=== PATIENT | male | born 1940 | race Caucasian/White ===

== ENCOUNTER 2018-10-19 11:28 | Inpatient (IN) | payer MEDICARE, BC ==
[2018-10-19] VITALS (9 sets, daily range): BP systolic 111–176; BP diastolic 53–85
[~2018-10-19] VITALS: Ht 165.1 cm; Wt 119.3 kg
[~2018-10-19 11:28] MED LIST: CRESTOR40 MG PO; DOXA2TAB2 PO; DOXY100C2 PO; GLIP5TAB10 PO; LISI-334 PO; MELO15TA23 PO; SILD100T PO
[2018-10-19] MEDS ORDERED: IPRATRPIUM/ALBUTEROL 0.5/2.5MG 3 ML NEBU. NEB ONE (11:45)
[2018-10-19] MEDS ORDERED: INSU100I32 SQ (11:54)
[2018-10-19] MEDS ORDERED: METO25TA4 PO ×2 (11:54→15:31)
[2018-10-19] MEDS ORDERED: ATOR40TA59 PO (11:54)
[2018-10-19] MEDS ORDERED: CHOL200059 PO (11:55)
[2018-10-19] MEDS ORDERED: ASPI325T8 PO (11:55)
[2018-10-19] MEDS ORDERED: AMLO5TAB10 PO (11:55)
[2018-10-19] MEDS ORDERED: OMEG-165 PO (11:56)
[2018-10-19] MEDS ORDERED: PATI8.4P PO (11:56)
[2018-10-19 11:58] LABS: BASO # 0.1 x10^3/uL (0.0-0.2); BASO % 1 % (0-3); EOS % 0 % (0-3); HEMATOCRIT 37.4 % (39.0-53.0); HEMOGLOBIN 12.2 g/dL (13.0-17.5); LYMPH # 1.1 x10^3/uL (1.0-4.8); LYMPH % 10 % (24-48); MEAN CORPUSCULAR HEMOGLOBIN 29 pg (25-35); MEAN CORPUSCULAR HGB CONC 33 g/dL (31-37); MEAN CORPUSCULAR VOLUME 88 fL (79-100); MONO # 0.8 x10^3/uL (0.0-1.1); MONO % 7 % (0-9); NEUT % 82 % (31-73); PLATELET COUNT 310 x10^3/uL (140-400); RED BLOOD COUNT 4.25 x10^6/uL (4.30-5.70); RED CELL DISTRIBUTION WIDTH 13.8 % (11.5-14.5)
[2018-10-19 12:03] LABS: CALCIUM 8.9 mg/dL (8.5-10.1); CREATININE 2.8 mg/dL (0.7-1.3); POTASSIUM 4.3 mmol/L (3.5-5.1)
[2018-10-19 12:06] LABS: BASE EXCESS ABG -3 mmol/L (-3-3); HCO3 ABG 24 mmol/L (21-28); PCO2 ABG 45 mmHg (35-46); PO2 ABG 58 mmHg (65-108); SAT O2 ABG 88 % (92-99)
[2018-10-19 12:09] LABS: ALBUMIN 2.7 g/dL (3.4-5.0); ALBUMIN/GLOBULIN RATIO 0.6 (1.0-1.7); TOTAL BILIRUBIN 0.4 mg/dL (0.2-1.0); TOTAL PROTEIN 7.2 g/dL (6.4-8.2)
[2018-10-19 12:14] LABS: INFLUENZA A PATIENT NEGATIVE (NEGATIVE); INFLUENZA B PATIENT NEGATIVE (NEGATIVE)
[2018-10-19 12:14] LABS: FIO2 ABG 50
--- NOTE | 2018-10-19 12:18 | PHYS DOC ---
Past Medical History Past Medical History: Diabetes-Type II, High Cholesterol, Hypertension Past Surgical History: Cholecystectomy, Tonsillectomy Additional Past Surgical Histo: CARDIAC STENT, EYE SX, BONE SPUR L SHOULDER Alcohol Use: None Drug Use: None Adult General Chief Complaint Chief Complaint: SHORTNESS OF BREATH HPI HPI Patient is a 78-year-old male who presents from Dr. Dwyer's office with report of oxygen saturation in the 60s. Patient states that he has been having some shortness of breath and dry cough for the last 3 days. He admits to some chest tightness but denies any actual chest pain. He denies any nausea, vomiting or diaphoresis. He indicates that shortness of breath is worsened with minimal exertion. Patient states that he does have swelling to his lower legs but no lo wer leg pain. Patient states symptoms have been progressively worsening since onset. He states that nothing is helping his symptoms. He denies being on home oxygen. Review of Systems Review of Systems Constitutional: Denies fever or chills [] Respiratory: Positive cough and shortness of breath [] Cardiovascular: No additional information not addressed in HPI [] GI: Denies abdominal pain, nausea, vomiting or diarrhea [] Integument: Denies rash or skin lesions [] Neurologic: Denies headache, focal weakness or sensory changes [] All other systems were reviewed and found to be within normal limits, except as documented in this note. Current Medications Current Medications Current Medications Medications (Trade) Dose Ordered Sig/Kolton Start Time Stop Time Status Last Admin Dose Admin Albuterol/ Ipratropium (Duoneb) 3 ml 1X ONCE 10/19/18 11:45 10/19/18 11:46 DC 10/19/18 12:00 3 ML Furosemide (Lasix) 60 mg 1X ONCE 10/19/18 13:00 10/19/18 13:01 DC 10/19/18 13:00 60 MG Heparin Sodium (Porcine) (Heparin Sodium) 3,000 unit PRN Q6HRS PRN 10/19/18 12:30 Heparin Sodium/ Dextrose 500 ml @ 0 mls/hr CONT PRN 10/19/18 12:30 10/19/18 12:30 20 MLS/HR Info (Anti-Coagulation Monitoring By Pharmacy) 1 each PRN DAILY PRN 10/19/18 12:30 Allergies Allergies Allergies Coded Allergies Type Severity Reaction Last Updated Verified No Known Drug Allergies 06/03/13 No Physical Exam Physical Exam Constitutional: Well developed, well nourished, no acute distress, non-toxic appearance. [] HENT: Normocephalic, atraumatic, bilateral external ears normal, oropharynx moist, no oral exudates, nose normal. [] Eyes: PERRLA, EOMI, conjunctiva normal, no discharge. [] Neck: Normal range of motion, no tenderness, supple, no stridor. [] Cardiovascular: Regular rate and rhythm[] Lungs & Thorax: Bilateral breath sounds clear to auscultation [] Abdomen: Bowel sounds normal, soft, no tenderness. [] Skin: Warm, dry, no erythema, no rash. [] Extremities: No tenderness, no cyanosis, no clubbing, ROM intact, with lower extremity nonpitting edema. [] Neurologic: Alert and oriented X 3, no focal deficits noted. [] Current Patient Data Vital Signs Vital Signs Date Time Temp Pulse Resp B/P (MAP) Pulse Ox O2 Delivery O2 Flow Rate FiO2 10/19/18 13:06 88 143/65 (91) 94 Venturi Mask 15.0 10/19/18 11:34 98.6 22 98.6 Lab Values Laboratory Tests Test 10/19/18 11:40 10/19/18 11:55 White Blood Count 11.0 x10^3/uL (4.0-11.0) Red Blood Count 4.25 x10^6/uL (4.30-5.70) L Hemoglobin 12.2 g/dL (13.0-17.5) L Hematocrit 37.4 % (39.0-53.0) L Mean Corpuscular Volume 88 fL (79-100) Mean Corpuscular Hemoglobin 29 pg (25-35) Mean Corpuscular Hemoglobin Concent 33 g/dL (31-37) Red Cell Distribution Width 13.8 % (11.5-14.5) Platelet Count 310 x10^3/uL (140-400) Neutrophils (%) (Auto) 82 % (31-73) H Lymphocytes (%) (Auto) 10 % (24-48) L Monocytes (%) (Auto) 7 % (0-9) Eosinophils (%) (Auto) 0 % (0-3) Basophils (%) (Auto) 1 % (0-3) Neutrophils # (Auto) 9.0 x10^3uL (1.8-7.7) H Lymphocytes # (Auto) 1.1 x10^3/uL (1.0-4.8) Monocytes # (Auto) 0.8 x10^3/uL (0.0-1.1) Eosinophils # (Auto) 0.0 x10^3/uL (0.0-0.7) Basophils # (Auto) 0.1 x10^3/uL (0.0-0.2) D-Dimer (Rashmi) 0.83 ug/mlFEU (0.00-0.50) H Sodium Level 139 mmol/L (136-145) Potassium Level 4.3 mmol/L (3.5-5.1) Chloride Level 103 mmol/L (98-107) Carbon Dioxide Level 25 mmol/L (21-32) Anion Gap 11 (6-14) Blood Urea Nitrogen 55 mg/dL (8-26) H Creatinine 2.8 mg/dL (0.7-1.3) H Estimated GFR (Cockcroft-Gault) 22.0 BUN/Creatinine Ratio 20 (6-20) Glucose Level 179 mg/dL (70-99) H Calcium Level 8.9 mg/dL (8.5-10.1) Total Bilirubin 0.4 mg/dL (0.2-1.0) Aspartate Amino Transferase (AST) 20 U/L (15-37) Alanine Aminotransferase (ALT) 19 U/L (16-63) Alkaline Phosphatase 73 U/L (46-116) Troponin I Quantitative 0.739 ng/mL (0.000-0.055) IM-Aye-M-Type Natriuretic Peptide 55680 pg/mL (0-449) H Total Protein 7.2 g/dL (6.4-8.2) Albumin 2.7 g/dL (3.4-5.0) L Albumin/Globulin Ratio 0.6 (1.0-1.7) L Triglycerides Level 123 mg/dL (0-150) Cholesterol Level 177 mg/dL (0-200) LDL Cholesterol, Calculated 104 mg/dL (0-100) H VLDL Cholesterol, Calculated 25 mg/dL (0-40) Non-HDL Cholesterol Calculated 129 mg/dL (0-129) HDL Cholesterol 48 mg/dL (40-60) Cholesterol/HDL Ratio 3.7 Influenza Type A Antigen Negative (NEGATIVE) Influenza Type B Antigen Negative (NEGATIVE) O2 Saturation 88 % (92-99) L Arterial Blood pH 7.33 (7.35-7.45) L Arterial Blood pCO2 at Patient Temp 45 mmHg (35-46) Arterial Blood pO2 at Patient Temp 58 mmHg (65-108) L Arterial Blood HCO3 24 mmol/L (21-28) Arterial Blood Base Excess -3 mmol/L (-3-3) FiO2 50 Laboratory Tests 10/19/18 11:40 Laboratory Tests 10/19/18 11:40 EKG EKG [] Interpretation Time: EKG demonstrates normal sinus rhythm with rate of 93. There is left bundle branch block present. Radiology/Procedures Radiology/Procedures [] Impressions: PROCEDURE: CHEST PA & LATERAL CHEST PA LATERAL Clinical indications: Dyspnea. COMPARISON: June 01, 2005. Findings: There are moderate-sized bilateral pleural effusions and associated bibasilar lung infiltrates or pulmonary edema. No pneumothorax is seen. The heart size is mildly enlarged but stable. The mediastinum and pulmonary vasculature and both hieu are unremarkable. The osseous structures appear intact. Impression: Moderate-sized bilateral pleural effusions associated bibasilar lung infiltrates or pulmonary edema. Findings may reflect CHF or bilateral pneumonia/aspiration pneumonitis. The heart size is mildly enlarged. Electronically signed by: Homar Kaur MD (10/19/2018 12:56 PM) [id number] Course & Med Decision Making Course & Med Decision Making Pertinent Labs and Imaging studies reviewed. (See chart for details) [] Dragon Disclaimer Dragon Disclaimer This electronic medical record was generated, in whole or in part, using a voice recognition dictation system. Departure Departure Impression: Primary Impression: NSTEMI (non-ST elevated myocardial infarction) Additional Impressions: CHF (congestive heart failure) Acute on chronic renal insufficiency Hypoxemia Disposition: 09 ADMITTED INPATIENT Admitting Physician: Altaf Nunes Condition: IMPROVED Referrals: JONE BETTENCOURT MD (PCP) Problem Qualifiers Additional Impressions: CHF (congestive heart failure) Heart failure type: unspecified Heart failure chronicity: acute Qualified Codes: I50.9 - Heart failure, unspecified SEB STEINBERG Jr. DO October 19, 2018 12:18
[2018-10-19] MEDS: HEPARIN 25,000UTS/500ML PREMIX 500 ML IV PRN (12:30)
[2018-10-19] MEDS ORDERED: HEPARIN for IV BOLUS 10,000 UNIT/10 ML VIAL. IV PRN (12:30)
[2018-10-19] MEDS ORDERED: HEPARIN for IV BOLUS 10,000 UNIT/10 ML VIAL. IV ONE (12:30)
--- NOTE | 2018-10-19 12:52 | PDOC2 ---
CARDIAC CONSULT DATE OF CONSULT Date of Consult DATE: 10/19/18 TIME: 12:46 REASON FOR CONSULT Reason for Consult: NSTEMI REFERRING PHYSICIAN Referring Physician: Praveena SOURCE Source: Caregiver (spouse), Chart review, Patient HISTORY OF PRESENT ILLNESS HISTORY OF PRESENT ILLNESS This is a pleasant 78 yo male admitted for complains of shortness of breath. In the last 3 days he has been feeling more weak and kind of called but no fever. Negative for orthopnea or PND and no wheezing and no chest pain. He is positive for DEL ANGEL in the last 3 days and noted with hypoxia upon admission in ED. He has been having rumbling in his lower anterior ribcage same thing as when he had an ME in 2013. Positive for increased nocturia and has not been tested for DEE DEE. He has not gained much wt in the last 6 months. He does have renal insufficiency and being followed by Nephrology as an outpt. He has been complaint with his medications and his BG and BP has been controlled per his spouse. No jaw tightness, arm heaviness and no frequent dizziness. PAST MEDICAL HISTORY Cardiovascular: AFIB (post mi), CAD, HTN, ME, Hyperlipidemia GI: Diverticulosis ENT: Other (retinopathy) Renal/: Benign prostatic enlarg. Endocrine: Diabetes (2) PAST SURGICAL HISTORY Past Surgical History: Arthroscopy (left shoulder ), Cholecystectomy, Tonsill ectomy, Other (PCI multipel stents 2012; eye surgery) FAMILY HISTORY Family History noncontributory to CV SOCIAL HISTORY Smoke: Quit ALCOHOL: none Drugs: None Lives: with Family CURRENT MEDICATIONS CURRENT MEDICATIONS Current Medications Medications (Trade) Dose Ordered Sig/Kolton Route PRN Reason Start Time Stop Time Status Last Admin Dose Admin Albuterol/ Ipratropium (Duoneb) 3 ml 1X ONCE NEB 10/19/18 11:45 10/19/18 11:46 DC 10/19/18 12:00 Heparin Sodium (Porcine) (Heparin Sodium) 4,000 unit 1X ONCE IV 10/19/18 12:30 10/19/18 12:31 DC 10/19/18 12:29 Heparin Sodium/ Dextrose 500 ml @ 0 mls/hr CONT PRN IV SEE I/O RECORD 10/19/18 12:30 10/19/18 12:30 ALLERGIES ALLERGIES: Coded Allergies: No Known Drug Allergies (Unverified , 06/03/13) ROS Review of System 14 point ROS evaluated with pertinent positives noted per HPI PHYSICAL EXAM General: Alert, Oriented X3, Cooperative, No acute distress HEENT: Atraumatic, Mucous membr. moist/pink Lungs: Other (basilar crackles) Heart: Regular rate (SR LBBB), Normal S1, Normal S2, Other (S3 2/6 systolic murmur to LLS border) Abdomen: Soft, No tenderness, Other (obese) Extremities: No cyanosis, Other (2+ bilateral LE pitting edema) Skin: No breakdown, No significant lesion Neuro: Normal speech, Sensation intact Psych/Mental Status: Mental status NL, Mood NL MUSCULOSKELETAL: Osteoarthritic changes both hands VITALS VITALS Vital Signs Date Time Temp Pulse Resp B/P (MAP) Pulse Ox O2 Delivery O2 Flow Rate FiO2 10/19/18 12:35 89 133/62 (85) 93 Venturi Mask 15.0 10/19/18 11:34 98.6 22 98.6 LABS Lab: Laboratory Tests Test 10/19/18 11:40 10/19/18 11:55 White Blood Count 11.0 x10^3/uL (4.0-11.0) Red Blood Count 4.25 x10^6/uL (4.30-5.70) Hemoglobin 12.2 g/dL (13.0-17.5) Hematocrit 37.4 % (39.0-53.0) Mean Corpuscular Volume 88 fL (79-100) Mean Corpuscular Hemoglobin 29 pg (25-35) Mean Corpuscular Hemoglobin Concent 33 g/dL (31-37) Red Cell Distribution Width 13.8 % (11.5-14.5) Platelet Count 310 x10^3/uL (140-400) Neutrophils (%) (Auto) 82 % (31-73) Lymphocytes (%) (Auto) 10 % (24-48) Monocytes (%) (Auto) 7 % (0-9) Eosinophils (%) (Auto) 0 % (0-3) Basophils (%) (Auto) 1 % (0-3) Neutrophils # (Auto) 9.0 x10^3uL (1.8-7.7) Lymphocytes # (Auto) 1.1 x10^3/uL (1.0-4.8) Monocytes # (Auto) 0.8 x10^3/uL (0.0-1.1) Eosinophils # (Auto) 0.0 x10^3/uL (0.0-0.7) Basophils # (Auto) 0.1 x10^3/uL (0.0-0.2) D-Dimer (Rashmi) 0.83 ug/mlFEU (0.00-0.50) Sodium Level 139 mmol/L (136-145) Potassium Level 4.3 mmol/L (3.5-5.1) Chloride Level 103 mmol/L (98-107) Carbon Dioxide Level 25 mmol/L (21-32) Anion Gap 11 (6-14) Blood Urea Nitrogen 55 mg/dL (8-26) Creatinine 2.8 mg/dL (0.7-1.3) Estimated GFR (Cockcroft-Gault) 22.0 BUN/Creatinine Ratio 20 (6-20) Glucose Level 179 mg/dL (70-99) Calcium Level 8.9 mg/dL (8.5-10.1) Total Bilirubin 0.4 mg/dL (0.2-1.0) Aspartate Amino Transf (AST/SGOT) 20 U/L (15-37) Alanine Aminotransferase (ALT/SGPT) 19 U/L (16-63) Alkaline Phosphatase 73 U/L (46-116) Troponin I Quantitative 0.739 ng/mL (0.000-0.055) XX-Yfx-L-Type Natriuretic Peptide 72425 pg/mL (0-449) Total Protein 7.2 g/dL (6.4-8.2) Albumin 2.7 g/dL (3.4-5.0) Albumin/Globulin Ratio 0.6 (1.0-1.7) Influenza Type A Antigen Negative (NEGATIVE) Influenza Type B Antigen Negative (NEGATIVE) O2 Saturation 88 % (92-99) Arterial Blood pH 7.33 (7.35-7.45) Arterial Blood pCO2 at Patient Temp 45 mmHg (35-46) Arterial Blood pO2 at Patient Temp 58 mmHg (65-108) Arterial Blood HCO3 24 mmol/L (21-28) Arterial Blood Base Excess -3 mmol/L (-3-3) FiO2 50 ECHOCARDIOGRAM ECHOCARDIOGRAM <Conclusion> Left ventricular systolic function is normal. The left ventricular ejection fraction is 55%. There is normal LV segmental wall motion. The left atrium is mild to moderately dilated. The aortic valve is normal in structure and function. The mitral valve is normal in structure and function. Mitral regurgitation is not significant by color flow Doppler. There is trace tricuspid regurgitation. The pulmonic valve is not well visualized but appears to open normally. DATE: 06/04/13 1519 HEART CATH HEART CATH PCI Technique Lesion 2 Percutaneous Coronary Intervention was performed on the distal left anterior descending artery segment. BALLOON DILATION A Balloon catheter 2.5X12 TREK was inserted and inflated up to 10atm for 60seconds. Repeat angiography revealed the following post-dilatation results: 10% residual. We decided not to stent this segment given the very distal and tortuous course and excellent POBA result Final angiography reveals 10 % stenosis with ALVARO 3 flow. Recommendations Cardiac Rehabilitation ReferralDaily ASA with Plavix for at least one year Aggressive Medical TherapyCardiac Risk Reduction Program Weight Loss Reduction ProgramMedical Therapy DATE: 06/04/13 1033 Conclusion 3 vessel CAD Successful PCI of proximal CX with MICHELLE Successful PCI of distal CX and LPDA with MICHELLE Recommendations Daily ASA with Plavix for at least one year Aggressive Medical TherapyCardiac Risk Reduction Program Weight Loss Reduction ProgramMedical Therapy Plan staged PCI of LAD Medical therapy for non-dominant small RCA DATE: 06/03/13 1608 ASSESSMENT/PLAN ASSESSMENT/PLAN 1. NSTEMI: LBBB, Trop at 0.7 2. Acute CHF with likely diastolic/systolic dysfunction 3. CAD; PCI 3 stents in the past see above 4. HTN: controlled 5. HLP 6. DM2 7. VIN on CKD: possibly 3-4 Cr at 2.8 8. Morbid obesity Recommendations 1. TSH, TTE, lipids, trend troponin 2. Consult nephrology and will coordinate as pt will need LHC and I did discussed this with him and his spouse and the risk for dialysis 3. Heparin, ASA. 4. Lasix therapy. 5. Restart home norvasc. NTG paste. Statin. Hold ACEi. Will start lopressor tomorrow. KARINA NUNEZ APRN October 19, 2018 12:52
[2018-10-19 12:57] LABS: CHOLESTEROL/HDL RATIO 3.7
--- NOTE | 2018-10-19 12:59 | RAD ---
CHEST PA LATERAL Clinical indications: Dyspnea. COMPARISON: June 01, 2005. Findings: There are moderate-sized bilateral pleural effusions and associated bibasilar lung infiltrates or pulmonary edema. No pneumothorax is seen. The heart size is mildly enlarged but stable. The mediastinum and pulmonary vasculature and both hieu are unremarkable. The osseous structures appear intact. Impression: Moderate-sized bilateral pleural effusions associated bibasilar lung infiltrates or pulmonary edema. Findings may reflect CHF or bilateral pneumonia/aspiration pneumonitis. The heart size is mildly enlarged. Electronically signed by: Homar Kaur MD (10/19/2018 12:56 PM) [id number]
[2018-10-19] MEDS ORDERED: FUROSEMIDE 40 MG/4 ML VIAL. IVP ONE (13:00)
--- NOTE | 2018-10-19 13:14 | EKG ---
[facility] [address] [place] [address] Test Date: 2018-10-19 Test Time: 11:40:18 Pat Name: LEANA DODD Department: Room: Gender: M [employer] Operator: : 1940 Requested By: SEB STEINBERG Order Number: [id number] Reading MD: Abdias Estrada MD Measurements Intervals [place] Rate: 93 P: 37 CA: 140 QRS: 31 QRSD: 146 T: -163 QT: 388 QTc: 485 Interpretive Statements SINUS RHYTHM LBBB Electronically Signed On 10-23-2018 13:56:22 CDT by Abdias Estrada MD
[2018-10-19] MEDS ORDERED: ONDANSETRON PF 4 MG/2 ML VIAL. IV PRN ×2 (13:30→15:15)
[2018-10-19] MEDS ORDERED: NITROGLYCERIN SUBLINGUAL 0.4 MG BOTTLE OF 25. SL PRN (13:30)
[2018-10-19] MEDS ORDERED: amLODIPine BESYLATE 5 MG TABLET PO ONE (13:30)
[2018-10-19] MEDS ORDERED: MORPHINE SULFATE 2 MG/ML VIAL. IV PRN (13:30)
--- NOTE | 2018-10-19 14:09 | PDOC1 ---
History and Physical Date of Admission Date of Admission DATE: 10/19/18 TIME: 14:09 Identification/Chief Complaint Chief Complaint presented to ER from Dr. Dwyer's office with report of oxygen saturation in the 60s. Patient states that he has been having shortness of breath and dry cough for the last 3 days. He admits to some chest tightness but denies any actual chest pain. He denies any nausea, vomiting or diaphoresis. NOTES shortness of breath is worsened with minimal exertion. Patient states that he does have swelling to his lower legs but no lower leg pain. Patient states symptoms have been progressively worsening since onset. He states that nothing is helping his symptoms. He denies being on home oxygen. Past Medical History Past Medical History PAST MEDICAL HISTORY Cardiovascular: AFIB (post mi), CAD, HTN, [place], Hyperlipidemia GI: Diverticulosis ENT: Other (retinopathy) Renal/: Benign prostatic enlarg. Endocrine: Diabetes (2) PAST SURGICAL HISTORY Past Surgical History: Arthroscopy (left shoulder ), Cholecystectomy, Tonsillectomy, Other (PCI multiple stents 2012; eye surgery) FAMILY HISTORY Family History noncontributory to CV SOCIAL HISTORY Smoke: Quit 20 yrs ago ALCOHOL: none Drugs: None Lives: with Family Cardiovascular: AFIB (post mi), CAD, HTN, [place], Hyperlipidemia GI: Diverticulosis Musculoskeletal: low back pain ENT: Other (retinopathy) Renal/: Benign prostatic enlarg. Endocrine: Diabetes (2) Past Surgical History Past Surgical History: Arthroscopy (left shoulder ), Cholecystectomy, Tonsillectomy, Other (PCI multipel stents 2012; eye surgery) Family History Family History: Hypertension Social History Smoke: Quit ALCOHOL: none Drugs: None Current Problem List Problem List Problems Medical Problems: (1) Acute on chronic renal insufficiency Status: Acute (2) CHF (congestive heart failure) Status: Acute (3) Hypoxemia Status: Acute (4) NSTEMI (non-ST elevated myocardial infarction) Status: Acute Current Medications Current Medications Current Medications Albuterol/ Ipratropium (Duoneb) 3 ml 1X ONCE NEB Last administered on 10/19/18at 12:00; Start 10/19/18 at 11:45; Stop 10/19/18 at 11:46; Status DC Heparin Sodium (Porcine) (Heparin Sodium) 4,000 unit 1X ONCE IV Last administe red on 10/19/18at 12:29; Start 10/19/18 at 12:30; Stop 10/19/18 at 12:31; Status DC Heparin Sodium/ Dextrose 500 ml @ 0 mls/hr CONT PRN IV SEE I/O RECORD Last administered on 10/19/18at 12:30; Start 10/19/18 at 12:30 Heparin Sodium (Porcine) (Heparin Sodium) 3,000 unit PRN Q6HRS PRN IV FOR UFH LEVEL LESS THAN 0.2; Start 10/19/18 at 12:30 Info (Anti-Coagulation Monitoring By Pharmacy) 1 each PRN DAILY PRN MC SEE COMMENTS; Start 10/19/18 at 12:30 Furosemide (Lasix) 60 mg 1X ONCE IVP Last administered on 10/19/18at 13:00; Start 10/19/18 at 13:00; Stop 10/19/18 at 13:01; Status DC Ondansetron HCl (Zofran) 4 mg PRN Q8HRS PRN IV NAUSEA/VOMITING; Start 10/19/18 at 13:30; Stop 10/20/18 at 13:29 Morphine Sulfate (Morphine Sulfate) 2 mg PRN Q2HR PRN IV PAIN; Start 10/19/18 at 13:30; Stop 10/20/18 at 13:29 Nitroglycerin (Nitrostat) 0.4 mg PRN Q5MIN PRN SL CHEST PAIN; Start 10/19/18 at 13:30; Stop 10/20/18 at 13:29 Albuterol/ Ipratropium (Duoneb) 3 ml RTQID NEB ; Start 10/19/18 at 16:00; Stop 10/20/18 at 15:59 Amlodipine Besylate (Norvasc) 5 mg 1X ONCE PO Last administered on 10/19/18at 13:53; Start 10/19/18 at 13:30; Stop 10/19/18 at 13:31; Status DC Nitroglycerin (Nitro-Bid Oint) 0.5 inch Q6HRS TP ; Start 10/19/18 at 14:00 Aspirin (Ecotrin) 81 mg DAILYWBKFT PO ; Start 10/19/18 at 14:00 Metoprolol Tartrate (Lopressor) 25 mg BID PO ; Start 10/19/18 at 14:00 Atorvastatin Calcium (Lipitor) 40 mg QHS PO ; Start 10/19/18 at 21:00 Active Scripts Active Reported Fish Oil 1,000 mg Softgel (Webster-3S/Dha/Epa/Fish Oil) 1 Each Capsule 1 Each PO Veltassa (Patiromer Calcium Sorbitex) 8.4 Gm Powd.pack 8.4 Gm PO Vitamin D-3 (Cholecalciferol (Vitamin D3)) 2,000 Unit Tablet 2,000 Unit PO Aspirin 325 Mg Tablet 1 Tab PO DAILY Amlodipine Besylate 5 Mg Tablet 5 Mg PO DAILY Metoprolol Tartrate 25 Mg Tablet 1 Tab PO BID Atorvastatin Calcium 40 Mg Tablet 1 Tab PO DAILY Basaglar Kwikpen U-100 (Insulin Glargine,Hum.rec.anlog) 100 Unit/1 Ml Insuln.pen 35 Unit SQ Lisinopril 20 Mg Tablet 40 Mg PO Glipizide 5 Mg Tablet 5 Mg PO Allergies Allergies: Coded Allergies: No Known Drug Allergies (Unverified , 06/03/13) ROS Review of System Review of Systems Review of Systems Constitutional: Denies fever or chills [] Respiratory: Positive cough and shortness of breath [] Cardiovascular: No additional information not addressed in HPI [] GI: Denies abdominal pain, nausea, vomiting or diarrhea [] Integument: Denies rash or skin lesions [] Neurologic: Denies headache, focal weakness or sensory changes [] 14 PT systems were reviewed and found to be within normal limits, except as documented . General: YES: Fatigue PSYCHOLOGICAL ROS: No: Anxiety, Behavioral Disorder, Concentration difficultie, Decreased libido, Depression, Disorientation, Hallucinations, Hostility, Irritablity, Memory difficulties, Mood Swings, Obsessive thoughts, Physical abuse, Sexual abuse, Sleep disturbances, Suicidal ideation, Other ALLERGY AND IMMUNOLOGY: No: Hives, Insect Bite Sensitivity, Itchy/Watery Eyes, Nasal Congestion, Post Nasal Drip, Seasonal Allergies, Other Hematological and Lymphatic: No: Bleeding Problems, Blood Clots, Blood Transfusions, Brusing, Night Sweats, Pallor, Swollen Lymph Nodes, Other Respiratory: YES: Shortness of breath Gastrointestinal: No Nausea, No Vomiting, No Abdominal Pain, No Diarrhea, No Constipation, No Melena, No Hematochezia, No Other Musculoskeletal: Yes Joint Stiffness Physical Exam Physical Exam Physical Exam Physical Exam Constitutional: Well developed, well nourished, VERY OBESE, no acute distress, non-toxic appearance. [] HENT: Normocephalic, atraumatic, bilateral external ears normal, oropharynx moist, no oral exudates, nose normal. [] Eyes: PERRLA, EOMI, conjunctiva normal, no discharge. [] Neck: Normal range of motion, no tenderness, supple, no stridor. [] Cardiovascular: Regular rate and rhythm[] Lungs & Thorax: Bilateral breath sounds clear to auscultation [] Abdomen: Bowel sounds normal, soft, no tenderness. [] Skin: Warm, dry, no erythema, no rash. [] Extremities: No tenderness, no cyanosis, no clubbing, ROM intact, with lower extremity nonpitting edema. [] Neurologic: Alert and oriented X 3, no focal deficits noted. [] Vitals Vitals Vital Signs Date Time Temp Pulse Resp B/P (MAP) Pulse Ox O2 Delivery O2 Flow Rate FiO2 10/19/18 13:53 81 152/67 10/19/18 13:06 94 Venturi Mask 15.0 10/19/18 11:34 98.6 22 98.6 Labs Labs Laboratory Tests Test 10/19/18 11:40 10/19/18 11:55 White Blood Count 11.0 x10^3/uL (4.0-11.0) Red Blood Count 4.25 x10^6/uL (4.30-5.70) Hemoglobin 12.2 g/dL (13.0-17.5) Hematocrit 37.4 % (39.0-53.0) Mean Corpuscular Volume 88 fL (79-100) Mean Corpuscular Hemoglobin 29 pg (25-35) Mean Corpuscular Hemoglobin Concent 33 g/dL (31-37) Red Cell Distribution Width 13.8 % (11.5-14.5) Platelet Count 310 x10^3/uL (140-400) Neutrophils (%) (Auto) 82 % (31-73) Lymphocytes (%) (Auto) 10 % (24-48) Monocytes (%) (Auto) 7 % (0-9) Eosinophils (%) (Auto) 0 % (0-3) Basophils (%) (Auto) 1 % (0-3) Neutrophils # (Auto) 9.0 x10^3uL (1.8-7.7) Lymphocytes # (Auto) 1.1 x10^3/uL (1.0-4.8) Monocytes # (Auto) 0.8 x10^3/uL (0.0-1.1) Eosinophils # (Auto) 0.0 x10^3/uL (0.0-0.7) Basophils # (Auto) 0.1 x10^3/uL (0.0-0.2) D-Dimer (Rashmi) 0.83 ug/mlFEU (0.00-0.50) Sodium Level 139 mmol/L (136-145) Potassium Level 4.3 mmol/L (3.5-5.1) Chloride Level 103 mmol/L (98-107) Carbon Dioxide Level 25 mmol/L (21-32) Anion Gap 11 (6-14) Blood Urea Nitrogen 55 mg/dL (8-26) Creatinine 2.8 mg/dL (0.7-1.3) Estimated GFR (Cockcroft-Gault) 22.0 BUN/Creatinine Ratio 20 (6-20) Glucose Level 179 mg/dL (70-99) Calcium Level 8.9 mg/dL (8.5-10.1) Total Bilirubin 0.4 mg/dL (0.2-1.0) Aspartate Amino Transf (AST/SGOT) 20 U/L (15-37) Alanine Aminotransferase (ALT/SGPT) 19 U/L (16-63) Alkaline Phosphatase 73 U/L (46-116) Troponin I Quantitative 0.739 ng/mL (0.000-0.055) BB-Svn-D-Type Natriuretic Peptide 58084 pg/mL (0-449) Total Protein 7.2 g/dL (6.4-8.2) Albumin 2.7 g/dL (3.4-5.0) Albumin/Globulin Ratio 0.6 (1.0-1.7) Triglycerides Level 123 mg/dL (0-150) Cholesterol Level 177 mg/dL (0-200) LDL Cholesterol, Calculated 104 mg/dL (0-100) VLDL Cholesterol, Calculated 25 mg/dL (0-40) Non-HDL Cholesterol Calculated 129 mg/dL (0-129) HDL Cholesterol 48 mg/dL (40-60) Cholesterol/HDL Ratio 3.7 Influenza Type A Antigen Negative (NEGATIVE) Influenza Type B Antigen Negative (NEGATIVE) O2 Saturation 88 % (92-99) Arterial Blood pH 7.33 (7.35-7.45) Arterial Blood pCO2 at Patient Temp 45 mmHg (35-46) Arterial Blood pO2 at Patient Temp 58 mmHg (65-108) Arterial Blood HCO3 24 mmol/L (21-28) Arterial Blood Base Excess -3 mmol/L (-3-3) FiO2 50 Laboratory Tests Test 10/19/18 11:40 10/19/18 11:55 White Blood Count 11.0 x10^3/uL (4.0-11.0) Red Blood Count 4.25 x10^6/uL (4.30-5.70) Hemoglobin 12.2 g/dL (13.0-17.5) Hematocrit 37.4 % (39.0-53.0) Mean Corpuscular Volume 88 fL (79-100) Mean Corpuscular Hemoglobin 29 pg (25-35) Mean Corpuscular Hemoglobin Concent 33 g/dL (31-37) Red Cell Distribution Width 13.8 % (11.5-14.5) Platelet Count 310 x10^3/uL (140-400) Neutrophils (%) (Auto) 82 % (31-73) Lymphocytes (%) (Auto) 10 % (24-48) Monocytes (%) (Auto) 7 % (0-9) Eosinophils (%) (Auto) 0 % (0-3) Basophils (%) (Auto) 1 % (0-3) Neutrophils # (Auto) 9.0 x10^3uL (1.8-7.7) Lymphocytes # (Auto) 1.1 x10^3/uL (1.0-4.8) Monocytes # (Auto) 0.8 x10^3/uL (0.0-1.1) Eosinophils # (Auto) 0.0 x10^3/uL (0.0-0.7) Basophils # (Auto) 0.1 x10^3/uL (0.0-0.2) D-Dimer (Rashmi) 0.83 ug/mlFEU (0.00-0.50) Sodium Level 139 mmol/L (136-145) Potassium Level 4.3 mmol/L (3.5-5.1) Chloride Level 103 mmol/L (98-107) Carbon Dioxide Level 25 mmol/L (21-32) Anion Gap 11 (6-14) Blood Urea Nitrogen 55 mg/dL (8-26) Creatinine 2.8 mg/dL (0.7-1.3) Estimated GFR (Cockcroft-Gault) 22.0 BUN/Creatinine Ratio 20 (6-20) Glucose Level 179 mg/dL (70-99) Calcium Level 8.9 mg/dL (8.5-10.1) Total Bilirubin 0.4 mg/dL (0.2-1.0) Aspartate Amino Transf (AST/SGOT) 20 U/L (15-37) Alanine Aminotransferase (ALT/SGPT) 19 U/L (16-63) Alkaline Phosphatase 73 U/L (46-116) Troponin I Quantitative 0.739 ng/mL (0.000-0.055) WQ-Lyp-G-Type Natriuretic Peptide 39330 pg/mL (0-449) Total Protein 7.2 g/dL (6.4-8.2) Albumin 2.7 g/dL (3.4-5.0) Albumin/Globulin Ratio 0.6 (1.0-1.7) Triglycerides Level 123 mg/dL (0-150) Cholesterol Level 177 mg/dL (0-200) LDL Cholesterol, Calculated 104 mg/dL (0-100) VLDL Cholesterol, Calculated 25 mg/dL (0-40) Non-HDL Cholesterol Calculated 129 mg/dL (0-129) HDL Cholesterol 48 mg/dL (40-60) Cholesterol/HDL Ratio 3.7 Influenza Type A Antigen Negative (NEGATIVE) Influenza Type B Antigen Negative (NEGATIVE) O2 Saturation 88 % (92-99) Arterial Blood pH 7.33 (7.35-7.45) Arterial Blood pCO2 at Patient Temp 45 mmHg (35-46) Arterial Blood pO2 at Patient Temp 58 mmHg (65-108) Arterial Blood HCO3 24 mmol/L (21-28) Arterial Blood Base Excess -3 mmol/L (-3-3) FiO2 50 VTE Prophylaxis Ordered VTE Prophylaxis Devices: Yes VTE Pharmacological Prophylaxi: Yes Assessment/Plan Assessment/Plan Impression: NSTEMI (non-ST elevated myocardial infarction) CHF (congestive heart failure) Acute on chronic renal insufficiency Hypoxemia MORBID OBESITY REMOTE TOBACCO ABUSE HYPERLIPIDEMIA HTN PROB DEE DEE ELEVATED TROPONIN I ADMITTED //INPATIENT ICU BED CARDIOLOGY CONSULT ECHO SERIAL TROPONIN I BP CONTROL 44 MIN CC TIME JAQUAN MENDEZ MD October 19, 2018 14:09
[2018-10-19] MEDS ORDERED: 0.9 % SODIUM CHLORIDE 3ML DISP.SYRIN. IV PRN (15:15)
[2018-10-19] MEDS ORDERED: MAG HYDROX/ALUMINUM HYD/SIMETH 30 ML ORAL.SUSP PO PRN (15:15)
[2018-10-19] MEDS ORDERED: guaiFENesin ORAL 200 MG/10 ML LIQUID. PO PRN (15:15)
[2018-10-19 15:56] LABS: BILIRUBIN,URINE NEGATIVE (NEG); CLARITY,URINE CLEAR; COLOR,URINE YELLOW; NITRITE,URINE NEGATIVE (NEG); PROTEIN,URINE >=300 mg/dL (NEG-TRACE); UROBILINOGEN,URINE 0.2 mg/dL (0.2 mg/dL)
[2018-10-19] MEDS ORDERED: IPRATRPIUM/ALBUTEROL 0.5/2.5MG 3 ML NEBU. NEB SCH (16:00)
[2018-10-19 16:05] LABS: BACTERIA,URINE FEW /HPF (0-FEW); WBC,URINE RARE /HPF (0-4)
[2018-10-19 16:06] LABS: HYALINE CASTS, URINE FEW /HPF
[2018-10-19] MEDS ORDERED: SODIUM BICARB ADULT 8.4% 50 MEQ/50 ML DISP.SYRIN. IV ONE (16:30)
--- NOTE | 2018-10-19 16:38 | CARD ---
MR#: [id number] Date of Study: 10/19/2018 Ordering Physician: KARINA NUNEZ, Referring Physician: JAQUAN MENDEZ Tech: Mechelle Cross RDCS APPROVED REPORT EXAM: Two-dimensional and M-mode echocardiogram with Doppler and color Doppler. Other Information Quality : Good INDICATION Non STEMI RISK FACTORS Obesity 2D DIMENSIONS RVDd3.3 (2.9-3.5cm)Left Atrium(2D)4.6 (1.6-4.0cm) IVSd1.4 (0.7-1.1cm)Aortic Root(2D)2.8 (2.0-3.7cm) LVDd5.4 (3.9-5.9cm)LVOT Diameter2.2 (1.8-2.4cm) PWd1.2 (0.7-1.1cm)LVDs4.2 (2.5-4.0cm) FS (%) 25.0 %SV67.3 ml LVEF(%)55.0 (>50%) Aortic Valve AoV Peak Lionel.161.6cm/sAoV VTI29.4cm AO Peak GR.10.4mmHgLVOT VTI 21.14cm AO Mean GR.7mmHgAVA (VTI)2.77cm2 Mitral Valve MV E Aftrkcdd871.5cm/sMV DECEL [id number] MV A Ppcnyfjk411.7cm/sE/A Ratio0.9 TDI Lateral E' P. V7.47cm/sMedial E' P. V5.47cm/s E/Lateral E'15.1E/Medial E'20.6 Tricuspid Valve TR P. Fstmljmh619cx/sRAP [id number] TR Peak Gr.54gwOwLGTH79vqYt Pulmonary Vein S1 Zqfcpzbg26.2cm/sS2 Vzitretr78.92cm/s D2 Egqrixyn68.9cm/s LEFT VENTRICLE The left ventricle is normal size. There is mild concentric left ventricular hypertrophy. The left ve ntricular systolic function is normal and the ejection fraction is within normal range. The Ejection Fraction is 55-60%. Septal motion consistent with conduction abnormality. Transmitral Doppler flow pa ttern is Grade I-abnormal relaxation pattern. RIGHT VENTRICLE The right ventricle is normal size. The right ventricular systolic function is normal. ATRIA The left atrium is mildly dilated. The right atrium size is normal. The interatrial septum is intact with no evidence for an atrial septal defect or patent foramen ovale as noted on 2-D or Doppler imagi ng. AORTIC VALVE The aortic valve is calcified but opens well. Doppler and Color Flow revealed no significant aortic r egurgitation. There is no significant aortic valvular stenosis. MITRAL VALVE The mitral valve is calcified but opens well. There is no evidence of mitral valve prolapse. There is no mitral valve stenosis. Doppler and Color-flow revealed trace to mild mitral regurgitation. TRICUSPID VALVE The tricuspid valve is normal in structure and function. Doppler and Color Flow revealed mild tricusp id regurgitation. The PA pressure was estimated at 48 mmHg. There is no tricuspid valve stenosis. PULMONIC VALVE The pulmonic valve is not well visualized. Doppler and Color Flow revealed no pulmonic valvular regur gitation. There is no pulmonic valvular stenosis. GREAT VESSELS The aortic root is normal in size. The ascending aorta is normal in size. The IVC is dilated and chuck apses <50% with inspiration. PERICARDIAL EFFUSION There is no evidence of significant pericardial effusion. Critical Notification Critical Value: No <Conclusion> The left ventricle is normal size. The left ventricular systolic function is normal and the ejection fraction is within normal range. The Ejection Fraction is 55-60%. There is mild concentric left ventricular hypertrophy. There is no significant aortic valvular stenosis. Doppler and Color Flow revealed no significant aortic regurgitation. Doppler and Color-flow revealed trace to mild mitral regurgitation. Doppler and Color Flow revealed mild tricuspid regurgitation. The PA pressure was estimated at 48 mmHg. Signed by : All Welch MD Electronically Approved : 10/19/2018 16:37:31
[2018-10-19] MEDS: ASPIRIN ENTERIC COATED 81 MG TABLET.DR. PO SCH (16:49)
[2018-10-19] MEDS: NITROGLYCERIN OINT 1 GM PACKET. TP SCH ×3 (16:49→23:38)
[2018-10-19] MEDS: METOPROLOL TART IMMED RELEASE 25 MG TABLET. PO SCH ×2 (16:50→20:32)
[2018-10-19] MEDS: INSULIN LISPRO 300 UNITS/3 ML INSULN.PEN. SQ SCH (18:00)
[2018-10-19] MEDS ORDERED: DEXTROSE 50% 25 GM / 50ML DISP.SYRIN. IV PRN (18:00)
--- NOTE | 2018-10-19 19:59 | RAD ---
CT CHEST WO CONTRAST Indication: Shortness of breath. Exposure: One or more of the following individualized dose reduction techniques were utilized for this examination: 1. Automated exposure control 2. Adjustment of the mA and/or kV according to patient size 3. Use of iterative reconstruction technique. Technique: Standard imaging without intravenous contrast. Limited vascular and visceral exam without intravenous contrast. The aorta is calcified but no evidence of aneurysm. Coronary artery calcifications. No significant lymph node enlargement. Thyroid is symmetric. There are small to moderate pleural effusions bilaterally. There are dependent infiltrates/atelectasis in both lungs. No evidence of pneumothorax. Trachea and mainstem bronchi are patent. Degenerative changes of the spine. Scans through the upper abdomen are limited by the technique. There is a right adrenal nodule measuring 2.2 cm and 1 Hounsfield unit. IMPRESSION: 1. Small to moderate bilateral pleural effusions. 2. Bilateral infiltrates/atelectasis. 3. Right adrenal mass. 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 Electronically signed by: Zachary Lira MD (10/19/2018 7:56 PM) [facility]
[2018-10-19] MEDS: IPRATRPIUM/ALBUTEROL 0.5/2.5MG 3 ML NEBU. NEB SCH ×2 (20:01→23:00)
[2018-10-19] MEDS: ATORVASTATIN CALCIUM 40 MG TABLET. PO SCH (20:32)
[2018-10-20] VITALS (23 sets, daily range): BP systolic 116–182; BP diastolic 48–82
[2018-10-20] MEDS: IPRATRPIUM/ALBUTEROL 0.5/2.5MG 3 ML NEBU. NEB SCH ×5 (03:15→20:00)
[2018-10-20 03:31] LABS: BASO # 0.1 x10^3/uL (0.0-0.2); BASO % 1 % (0-3); EOS # 0.2 x10^3/uL (0.0-0.7); EOS % 2 % (0-3); HEMATOCRIT 31.3 % (39.0-53.0); HEMOGLOBIN 10.2 g/dL (13.0-17.5); LYMPH # 1.9 x10^3/uL (1.0-4.8); LYMPH % 24 % (24-48); MEAN CORPUSCULAR HEMOGLOBIN 29 pg (25-35); MEAN CORPUSCULAR HGB CONC 33 g/dL (31-37); MEAN CORPUSCULAR VOLUME 88 fL (79-100); MONO # 0.8 x10^3/uL (0.0-1.1); MONO % 11 % (0-9); NEUT # 4.9 x10^3uL (1.8-7.7); NEUT % 62 % (31-73); PLATELET COUNT 253 x10^3/uL (140-400); RED BLOOD COUNT 3.55 x10^6/uL (4.30-5.70); WHITE BLOOD COUNT 7.9 x10^3/uL (4.0-11.0)
[2018-10-20 03:52] LABS: ALBUMIN 2.2 g/dL (3.4-5.0); ALBUMIN/GLOBULIN RATIO 0.8 (1.0-1.7); CALCIUM 7.9 mg/dL (8.5-10.1); GFR 20.3; POTASSIUM 3.8 mmol/L (3.5-5.1); TOTAL BILIRUBIN 0.3 mg/dL (0.2-1.0)
[2018-10-20] MEDS: NITROGLYCERIN OINT 1 GM PACKET. TP SCH ×3 (05:45→18:43)
--- NOTE | 2018-10-20 07:38 | RAD ---
EXAM: Bilateral lower extremity venous Doppler sonogram. HISTORY: Pain and edema. TECHNIQUE: Veliz scale and color Doppler sonographic evaluation of the bilateral lower extremity veins with spectral waveform analysis was performed. FINDINGS: The exam is limited due to patient body habitus. There is normal color flow, normal compressibility and there are normal spectral waveforms in the common femoral, superficial femoral, popliteal, posterior tibial and greater saphenous veins. There is a prominent left inguinal lymph node measuring 1.9 x 1.5 x 0.9 cm. This maintains a benign fatty hilum and is likely physiologic. IMPRESSION: No Doppler evidence of lower extremity deep venous thrombosis. Electronically signed by: Mone Koch MD (10/20/2018 7:35 AM) [facility]
[2018-10-20] MEDS: INSULIN LISPRO 300 UNITS/3 ML INSULN.PEN. SQ SCH ×3 (08:00→16:39)
[2018-10-20] MEDS ORDERED: ENOXAPARIN 40 MG/0.4 ML SYRINGE. SQ SCH (09:00)
[2018-10-20] MEDS: ASPIRIN ENTERIC COATED 81 MG TABLET.DR. PO SCH (09:32)
[2018-10-20] MEDS: METOPROLOL TART IMMED RELEASE 25 MG TABLET. PO SCH ×2 (09:33→21:34)
--- NOTE | 2018-10-20 09:44 | PDOC ---
PROGRESS NOTES Chief Complaint Chief Complaint NSTEMI (non-ST elevated myocardial infarction) CHF (congestive heart failure) Acute on chronic renal insufficiency Hypoxemia MORBID OBESITY REMOTE TOBACCO ABUSE HYPERLIPIDEMIA HTN PROB DEE DEE BPH History of Present Illness History of Present Illness Mr Wiggins is a 78 yo M w/ PMHx AFib, CAD s/p MICHELLE, HTN, HLD, BPH, DM2 who was admitted for complains of shortness of breath. In the last 3 days he has been feeling more weak. Negative for orthopnea or PND and no wheezing and no chest pain. He is positive for DEL ANGEL in the last 3 days and noted with hypoxia upon admission in ED. He had similar GI sx as he had an [place] in 2013.He does have renal insufficiency and being followed by Nephrology as an outpt. He has been complaint with his medications and his BG and BP has been controlled per his spouse. No jaw tightness, arm heaviness and no frequent dizziness. US negative for LE DVTs. CT shows bilateral pleural effusions and UOP was 1200cc overnight. Still on NRB for low O2. Troponin trended downward. He feels a bit better. No CP. Still short of breath. Has not been out of bed. Plan: Cont diuresis F/u cardiology and nephrology Vitals Vitals Vital Signs Date Time Temp Pulse Resp B/P (MAP) Pulse Ox O2 Delivery O2 Flow Rate FiO2 10/20/18 09:33 71 141/62 10/20/18 08:55 92 Venturi Mask 15.0 10/20/18 06:00 16 10/20/18 04:00 98.9 98.9 Physical Exam General: Alert, Oriented X3, Cooperative, No acute distress Heart: Regular rate (SR LBBB), Normal S1, Normal S2, Other (S3 2/6 systolic murmur to LLS border) Abdomen: Soft, No tenderness, Other (obese) Extremities: No cyanosis, Other (2+ bilateral LE pitting edema) Skin: No breakdown, No significant lesion Labs LABS Laboratory Tests Test 10/19/18 11:40 10/19/18 11:55 10/19/18 15:45 10/19/18 16:35 White Blood Count 11.0 x10^3/uL (4.0-11.0) Red Blood Count 4.25 x10^6/uL (4.30-5.70) Hemoglobin 12.2 g/dL (13.0-17.5) Hematocrit 37.4 % (39.0-53.0) Mean Corpuscular Volume 88 fL (79-100) Mean Corpuscular Hemoglobin 29 pg (25-35) Mean Corpuscular Hemoglobin Concent 33 g/dL (31-37) Red Cell Distribution Width 13.8 % (11.5-14.5) Platelet Count 310 x10^3/uL (140-400) Neutrophils (%) (Auto) 82 % (31-73) Lymphocytes (%) (Auto) 10 % (24-48) Monocytes (%) (Auto) 7 % (0-9) Eosinophils (%) (Auto) 0 % (0-3) Basophils (%) (Auto) 1 % (0-3) Neutrophils # (Auto) 9.0 x10^3uL (1.8-7.7) Lymphocytes # (Auto) 1.1 x10^3/uL (1.0-4.8) Monocytes # (Auto) 0.8 x10^3/uL (0.0-1.1) Eosinophils # (Auto) 0.0 x10^3/uL (0.0-0.7) Basophils # (Auto) 0.1 x10^3/uL (0.0-0.2) D-Dimer (Rashmi) 0.83 ug/mlFEU (0.00-0.50) Sodium Level 139 mmol/L (136-145) Potassium Level 4.3 mmol/L (3.5-5.1) Chloride Level 103 mmol/L (98-107) Carbon Dioxide Level 25 mmol/L (21-32) Anion Gap 11 (6-14) Blood Urea Nitrogen 55 mg/dL (8-26) Creatinine 2.8 mg/dL (0.7-1.3) Estimated GFR (Cockcroft-Gault) 22.0 BUN/Creatinine Ratio 20 (6-20) Glucose Level 179 mg/dL (70-99) Calcium Level 8.9 mg/dL (8.5-10.1) Total Bilirubin 0.4 mg/dL (0.2-1.0) Aspartate Amino Transf (AST/SGOT) 20 U/L (15-37) Alanine Aminotransferase (ALT/SGPT) 19 U/L (16-63) Alkaline Phosphatase 73 U/L (46-116) Troponin I Quantitative 0.739 ng/mL (0.000-0.055) 1.204 ng/mL (0.000-0.055) XQ-Oqk-O-Type Natriuretic Peptide 53754 pg/mL (0-449) Total Protein 7.2 g/dL (6.4-8.2) Albumin 2.7 g/dL (3.4-5.0) Albumin/Globulin Ratio 0.6 (1.0-1.7) Triglycerides Level 123 mg/dL (0-150) Cholesterol Level 177 mg/dL (0-200) LDL Cholesterol, Calculated 104 mg/dL (0-100) VLDL Cholesterol, Calculated 25 mg/dL (0-40) Non-HDL Cholesterol Calculated 129 mg/dL (0-129) HDL Cholesterol 48 mg/dL (40-60) Cholesterol/HDL Ratio 3.7 Influenza Type A Antigen Negative (NEGATIVE) Influenza Type B Antigen Negative (NEGATIVE) O2 Saturation 88 % (92-99) Arterial Blood pH 7.33 (7.35-7.45) Arterial Blood pCO2 at Patient Temp 45 mmHg (35-46) Arterial Blood pO2 at Patient Temp 58 mmHg (65-108) Arterial Blood HCO3 24 mmol/L (21-28) Arterial Blood Base Excess -3 mmol/L (-3-3) FiO2 50 Urine Collection Type Void Urine Color Yellow Urine Clarity Clear Urine pH 5.0 Urine Specific [place] 1.015 Urine Protein >=300 mg/dL (NEG-TRACE) Urine Glucose (UA) 100 mg/dL (NEG) Urine Ketones (Stick) Negative mg/dL (NEG) Urine Blood Moderate (NEG) Urine Nitrite Negative (NEG) Urine Bilirubin Negative (NEG) Urine Urobilinogen Dipstick 0.2 mg/dL (0.2 mg/dL) Urine Leukocyte Esterase Negative (NEG) Urine RBC 1-2 /HPF (0-2) Urine WBC Rare /HPF (0-4) Urine Squamous Epithelial Cells None /LPF Urine Bacteria Few /HPF (0-FEW) Urine Hyaline Casts Few /HPF Urine Mucus Mod /LPF Test 10/19/18 18:05 10/19/18 19:30 10/20/18 03:00 Glucose (Fingerstick) 129 mg/dL (70-99) Heparin Anti-Xa Act, Unfractionated < 0.10 IU/mL (0.30-0.70) 0.21 IU/mL (0.30-0.70) Troponin I Quantitative 1.442 ng/mL (0.000-0.055) 1.612 ng/mL (0.000-0.055) White Blood Count 7.9 x10^3/uL (4.0-11.0) Red Blood Count 3.55 x10^6/uL (4.30-5.70) Hemoglobin 10.2 g/dL (13.0-17.5) Hematocrit 31.3 % (39.0-53.0) Mean Corpuscular Volume 88 fL (79-100) Mean Corpuscular Hemoglobin 29 pg (25-35) Mean Corpuscular Hemoglobin Concent 33 g/dL (31-37) Red Cell Distribution Width 14.0 % (11.5-14.5) Platelet Count 253 x10^3/uL (140-400) Neutrophils (%) (Auto) 62 % (31-73) Lymphocytes (%) (Auto) 24 % (24-48) Monocytes (%) (Auto) 11 % (0-9) Eosinophils (%) (Auto) 2 % (0-3) Basophils (%) (Auto) 1 % (0-3) Neutrophils # (Auto) 4.9 x10^3uL (1.8-7.7) Lymphocytes # (Auto) 1.9 x10^3/uL (1.0-4.8) Monocytes # (Auto) 0.8 x10^3/uL (0.0-1.1) Eosinophils # (Auto) 0.2 x10^3/uL (0.0-0.7) Basophils # (Auto) 0.1 x10^3/uL (0.0-0.2) Sodium Level 141 mmol/L (136-145) Potassium Level 3.8 mmol/L (3.5-5.1) Chloride Level 104 mmol/L (98-107) Carbon Dioxide Level 27 mmol/L (21-32) Anion Gap 10 (6-14) Blood Urea Nitrogen 58 mg/dL (8-26) Creatinine 3.0 mg/dL (0.7-1.3) Estimated GFR (Cockcroft-Gault) 20.3 BUN/Creatinine Ratio 19 (6-20) Glucose Level 147 mg/dL (70-99) Calcium Level 7.9 mg/dL (8.5-10.1) Total Bilirubin 0.3 mg/dL (0.2-1.0) Aspartate Amino Transf (AST/SGOT) 23 U/L (15-37) Alanine Aminotransferase (ALT/SGPT) 18 U/L (16-63) Alkaline Phosphatase 61 U/L (46-116) Total Protein 5.0 g/dL (6.4-8.2) Albumin 2.2 g/dL (3.4-5.0) Albumin/Globulin Ratio 0.8 (1.0-1.7) Assessment and Plan Assessmemt and Plan Problems Medical Problems: (1) Acute on chronic renal insufficiency Status: Acute (2) CHF (congestive heart failure) Status: Acute (3) Hypoxemia Status: Acute (4) NSTEMI (non-ST elevated myocardial infarction) Status: Acute Comment Review of Relevant I have reviewed the following items kristin (where applicable) has been applied. Labs Laboratory Tests Test 10/19/18 11:40 10/19/18 11:55 10/19/18 15:45 10/19/18 16:35 White Blood Count 11.0 x10^3/uL (4.0-11.0) Red Blood Count 4.25 x10^6/uL (4.30-5.70) Hemoglobin 12.2 g/dL (13.0-17.5) Hematocrit 37.4 % (39.0-53.0) Mean Corpuscular Volume 88 fL (79-100) Mean Corpuscular Hemoglobin 29 pg (25-35) Mean Corpuscular Hemoglobin Concent 33 g/dL (31-37) Red Cell Distribution Width 13.8 % (11.5-14.5) Platelet Count 310 x10^3/uL (140-400) Neutrophils (%) (Auto) 82 % (31-73) Lymphocytes (%) (Auto) 10 % (24-48) Monocytes (%) (Auto) 7 % (0-9) Eosinophils (%) (Auto) 0 % (0-3) Basophils (%) (Auto) 1 % (0-3) Neutrophils # (Auto) 9.0 x10^3uL (1.8-7.7) Lymphocytes # (Auto) 1.1 x10^3/uL (1.0-4.8) Monocytes # (Auto) 0.8 x10^3/uL (0.0-1.1) Eosinophils # (Auto) 0.0 x10^3/uL (0.0-0.7) Basophils # (Auto) 0.1 x10^3/uL (0.0-0.2) D-Dimer (Rashmi) 0.83 ug/mlFEU (0.00-0.50) Sodium Level 139 mmol/L (136-145) Potassium Level 4.3 mmol/L (3.5-5.1) Chloride Level 103 mmol/L (98-107) Carbon Dioxide Level 25 mmol/L (21-32) Anion Gap 11 (6-14) Blood Urea Nitrogen 55 mg/dL (8-26) Creatinine 2.8 mg/dL (0.7-1.3) Estimated GFR (Cockcroft-Gault) 22.0 BUN/Creatinine Ratio 20 (6-20) Glucose Level 179 mg/dL (70-99) Calcium Level 8.9 mg/dL (8.5-10.1) Total Bilirubin 0.4 mg/dL (0.2-1.0) Aspartate Amino Transf (AST/SGOT) 20 U/L (15-37) Alanine Aminotransferase (ALT/SGPT) 19 U/L (16-63) Alkaline Phosphatase 73 U/L (46-116) Troponin I Quantitative 0.739 ng/mL (0.000-0.055) 1.204 ng/mL (0.000-0.055) GM-Yyq-U-Type Natriuretic Peptide 52372 pg/mL (0-449) Total Protein 7.2 g/dL (6.4-8.2) Albumin 2.7 g/dL (3.4-5.0) Albumin/Globulin Ratio 0.6 (1.0-1.7) Triglycerides Level 123 mg/dL (0-150) Cholesterol Level 177 mg/dL (0-200) LDL Cholesterol, Calculated 104 mg/dL (0-100) VLDL Cholesterol, Calculated 25 mg/dL (0-40) Non-HDL Cholesterol Calculated 129 mg/dL (0-129) HDL Cholesterol 48 mg/dL (40-60) Cholesterol/HDL Ratio 3.7 Influenza Type A Antigen Negative (NEGATIVE) Influenza Type B Antigen Negative (NEGATIVE) O2 Saturation 88 % (92-99) Arterial Blood pH 7.33 (7.35-7.45) Arterial Blood pCO2 at Patient Temp 45 mmHg (35-46) Arterial Blood pO2 at Patient Temp 58 mmHg (65-108) Arterial Blood HCO3 24 mmol/L (21-28) Arterial Blood Base Excess -3 mmol/L (-3-3) FiO2 50 Urine Collection Type Void Urine Color Yellow Urine Clarity Clear Urine pH 5.0 Urine Specific [place] 1.015 Urine Protein >=300 mg/dL (NEG-TRACE) Urine Glucose (UA) 100 mg/dL (NEG) Urine Ketones (Stick) Negative mg/dL (NEG) Urine Blood Moderate (NEG) Urine Nitrite Negative (NEG) Urine Bilirubin Negative (NEG) Urine Urobilinogen Dipstick 0.2 mg/dL (0.2 mg/dL) Urine Leukocyte Esterase Negative (NEG) Urine RBC 1-2 /HPF (0-2) Urine WBC Rare /HPF (0-4) Urine Squamous Epithelial Cells None /LPF Urine Bacteria Few /HPF (0-FEW) Urine Hyaline Casts Few /HPF Urine Mucus Mod /LPF Test 10/19/18 18:05 10/19/18 19:30 10/20/18 03:00 Glucose (Fingerstick) 129 mg/dL (70-99) Heparin Anti-Xa Act, Unfractionated < 0.10 IU/mL (0.30-0.70) 0.21 IU/mL (0.30-0.70) Troponin I Quantitative 1.442 ng/mL (0.000-0.055) 1.612 ng/mL (0.000-0.055) White Blood Count 7.9 x10^3/uL (4.0-11.0) Red Blood Count 3.55 x10^6/uL (4.30-5.70) Hemoglobin 10.2 g/dL (13.0-17.5) Hematocrit 31.3 % (39.0-53.0) Mean Corpuscular Volume 88 fL (79-100) Mean Corpuscular Hemoglobin 29 pg (25-35) Mean Corpuscular Hemoglobin Concent 33 g/dL (31-37) Red Cell Distribution Width 14.0 % (11.5-14.5) Platelet Count 253 x10^3/uL (140-400) Neutrophils (%) (Auto) 62 % (31-73) Lymphocytes (%) (Auto) 24 % (24-48) Monocytes (%) (Auto) 11 % (0-9) Eosinophils (%) (Auto) 2 % (0-3) Basophils (%) (Auto) 1 % (0-3) Neutrophils # (Auto) 4.9 x10^3uL (1.8-7.7) Lymphocytes # (Auto) 1.9 x10^3/uL (1.0-4.8) Monocytes # (Auto) 0.8 x10^3/uL (0.0-1.1) Eosinophils # (Auto) 0.2 x10^3/uL (0.0-0.7) Basophils # (Auto) 0.1 x10^3/uL (0.0-0.2) Sodium Level 141 mmol/L (136-145) Potassium Level 3.8 mmol/L (3.5-5.1) Chloride Level 104 mmol/L (98-107) Carbon Dioxide Level 27 mmol/L (21-32) Anion Gap 10 (6-14) Blood Urea Nitrogen 58 mg/dL (8-26) Creatinine 3.0 mg/dL (0.7-1.3) Estimated GFR (Cockcroft-Gault) 20.3 BUN/Creatinine Ratio 19 (6-20) Glucose Level 147 mg/dL (70-99) Calcium Level 7.9 mg/dL (8.5-10.1) Total Bilirubin 0.3 mg/dL (0.2-1.0) Aspartate Amino Transf (AST/SGOT) 23 U/L (15-37) Alanine Aminotransferase (ALT/SGPT) 18 U/L (16-63) Alkaline Phosphatase 61 U/L (46-116) Total Protein 5.0 g/dL (6.4-8.2) Albumin 2.2 g/dL (3.4-5.0) Albumin/Globulin Ratio 0.8 (1.0-1.7) Laboratory Tests Test 10/19/18 11:40 10/19/18 11:55 10/19/18 15:45 10/19/18 16:35 White Blood Count 11.0 x10^3/uL (4.0-11.0) Red Blood Count 4.25 x10^6/uL (4.30-5.70) Hemoglobin 12.2 g/dL (13.0-17.5) Hematocrit 37.4 % (39.0-53.0) Mean Corpuscular Volume 88 fL (79-100) Mean Corpuscular Hemoglobin 29 pg (25-35) Mean Corpuscular Hemoglobin Concent 33 g/dL (31-37) Red Cell Distribution Width 13.8 % (11.5-14.5) Platelet Count 310 x10^3/uL (140-400) Neutrophils (%) (Auto) 82 % (31-73) Lymphocytes (%) (Auto) 10 % (24-48) Monocytes (%) (Auto) 7 % (0-9) Eosinophils (%) (Auto) 0 % (0-3) Basophils (%) (Auto) 1 % (0-3) Neutrophils # (Auto) 9.0 x10^3uL (1.8-7.7) Lymphocytes # (Auto) 1.1 x10^3/uL (1.0-4.8) Monocytes # (Auto) 0.8 x10^3/uL (0.0-1.1) Eosinophils # (Auto) 0.0 x10^3/uL (0.0-0.7) Basophils # (Auto) 0.1 x10^3/uL (0.0-0.2) D-Dimer (Rashmi) 0.83 ug/mlFEU (0.00-0.50) Sodium Level 139 mmol/L (136-145) Potassium Level 4.3 mmol/L (3.5-5.1) Chloride Level 103 mmol/L (98-107) Carbon Dioxide Level 25 mmol/L (21-32) Anion Gap 11 (6-14) Blood Urea Nitrogen 55 mg/dL (8-26) Creatinine 2.8 mg/dL (0.7-1.3) Estimated GFR (Cockcroft-Gault) 22.0 BUN/Creatinine Ratio 20 (6-20) Glucose Level 179 mg/dL (70-99) Calcium Level 8.9 mg/dL (8.5-10.1) Total Bilirubin 0.4 mg/dL (0.2-1.0) Aspartate Amino Transf (AST/SGOT) 20 U/L (15-37) Alanine Aminotransferase (ALT/SGPT) 19 U/L (16-63) Alkaline Phosphatase 73 U/L (46-116) Troponin I Quantitative 0.739 ng/mL (0.000-0.055) 1.204 ng/mL (0.000-0.055) WD-Roq-Y-Type Natriuretic Peptide 94532 pg/mL (0-449) Total Protein 7.2 g/dL (6.4-8.2) Albumin 2.7 g/dL (3.4-5.0) Albumin/Globulin Ratio 0.6 (1.0-1.7) Triglycerides Level 123 mg/dL (0-150) Cholesterol Level 177 mg/dL (0-200) LDL Cholesterol, Calculated 104 mg/dL (0-100) VLDL Cholesterol, Calculated 25 mg/dL (0-40) Non-HDL Cholesterol Calculated 129 mg/dL (0-129) HDL Cholesterol 48 mg/dL (40-60) Cholesterol/HDL Ratio 3.7 Influenza Type A Antigen Negative (NEGATIVE) Influenza Type B Antigen Negative (NEGATIVE) O2 Saturation 88 % (92-99) Arterial Blood pH 7.33 (7.35-7.45) Arterial Blood pCO2 at Patient Temp 45 mmHg (35-46) Arterial Blood pO2 at Patient Temp 58 mmHg (65-108) Arterial Blood HCO3 24 mmol/L (21-28) Arterial Blood Base Excess -3 mmol/L (-3-3) FiO2 50 Urine Collection Type Void Urine Color Yellow Urine Clarity Clear Urine pH 5.0 Urine Specific [place] 1.015 Urine Protein >=300 mg/dL (NEG-TRACE) Urine Glucose (UA) 100 mg/dL (NEG) Urine Ketones (Stick) Negative mg/dL (NEG) Urine Blood Moderate (NEG) Urine Nitrite Negative (NEG) Urine Bilirubin Negative (NEG) Urine Urobilinogen Dipstick 0.2 mg/dL (0.2 mg/dL) Urine Leukocyte Esterase Negative (NEG) Urine RBC 1-2 /HPF (0-2) Urine WBC Rare /HPF (0-4) Urine Squamous Epithelial Cells None /LPF Urine Bacteria Few /HPF (0-FEW) Urine Hyaline Casts Few /HPF Urine Mucus Mod /LPF Test 10/19/18 18:05 10/19/18 19:30 10/20/18 03:00 Glucose (Fingerstick) 129 mg/dL (70-99) Heparin Anti-Xa Act, Unfractionated < 0.10 IU/mL (0.30-0.70) 0.21 IU/mL (0.30-0.70) Troponin I Quantitative 1.442 ng/mL (0.000-0.055) 1.612 ng/mL (0.000-0.055) White Blood Count 7.9 x10^3/uL (4.0-11.0) Red Blood Count 3.55 x10^6/uL (4.30-5.70) Hemoglobin 10.2 g/dL (13.0-17.5) Hematocrit 31.3 % (39.0-53.0) Mean Corpuscular Volume 88 fL (79-100) Mean Corpuscular Hemoglobin 29 pg (25-35) Mean Corpuscular Hemoglobin Concent 33 g/dL (31-37) Red Cell Distribution Width 14.0 % (11.5-14.5) Platelet Count 253 x10^3/uL (140-400) Neutrophils (%) (Auto) 62 % (31-73) Lymphocytes (%) (Auto) 24 % (24-48) Monocytes (%) (Auto) 11 % (0-9) Eosinophils (%) (Auto) 2 % (0-3) Basophils (%) (Auto) 1 % (0-3) Neutrophils # (Auto) 4.9 x10^3uL (1.8-7.7) Lymphocytes # (Auto) 1.9 x10^3/uL (1.0-4.8) Monocytes # (Auto) 0.8 x10^3/uL (0.0-1.1) Eosinophils # (Auto) 0.2 x10^3/uL (0.0-0.7) Basophils # (Auto) 0.1 x10^3/uL (0.0-0.2) Sodium Level 141 mmol/L (136-145) Potassium Level 3.8 mmol/L (3.5-5.1) Chloride Level 104 mmol/L (98-107) Carbon Dioxide Level 27 mmol/L (21-32) Anion Gap 10 (6-14) Blood Urea Nitrogen 58 mg/dL (8-26) Creatinine 3.0 mg/dL (0.7-1.3) Estimated GFR (Cockcroft-Gault) 20.3 BUN/Creatinine Ratio 19 (6-20) Glucose Level 147 mg/dL (70-99) Calcium Level 7.9 mg/dL (8.5-10.1) Total Bilirubin 0.3 mg/dL (0.2-1.0) Aspartate Amino Transf (AST/SGOT) 23 U/L (15-37) Alanine Aminotransferase (ALT/SGPT) 18 U/L (16-63) Alkaline Phosphatase 61 U/L (46-116) Total Protein 5.0 g/dL (6.4-8.2) Albumin 2.2 g/dL (3.4-5.0) Albumin/Globulin Ratio 0.8 (1.0-1.7) Medications Current Medications Albuterol/ Ipratropium (Duoneb) 3 ml 1X ONCE NEB Last administered on 10/19/18at 12:00; Start 10/19/18 at 11:45; Stop 10/19/18 at 11:46; Status DC Heparin Sodium (Porcine) (Heparin Sodium) 4,000 unit 1X ONCE IV Last adminis tered on 10/19/18at 12:29; Start 10/19/18 at 12:30; Stop 10/19/18 at 12:31; Status DC Heparin Sodium/ Dextrose 500 ml @ 0 mls/hr CONT PRN IV SEE I/O RECORD Last administered on 10/19/18at 12:30; Start 10/19/18 at 12:30 Heparin Sodium (Porcine) (Heparin Sodium) 3,000 unit PRN Q6HRS PRN IV FOR UFH LEVEL LESS THAN 0.2 Last administered on 10/19/18at 20:34; Start 10/19/18 at 12:30 Info (Anti-Coagulation Monitoring By Pharmacy) 1 each PRN DAILY PRN MC SEE COMMENTS; Start 10/19/18 at 12:30 Furosemide (Lasix) 60 mg 1X ONCE IVP Last administered on 10/19/18at 13:00; Start 10/19/18 at 13:00; Stop 10/19/18 at 13:01; Status DC Ondansetron HCl (Zofran) 4 mg PRN Q8HRS PRN IV NAUSEA/VOMITING; Start 10/19/18 at 13:30; Stop 10/20/18 at 13:29 Morphine Sulfate (Morphine Sulfate) 2 mg PRN Q2HR PRN IV PAIN; Start 10/19/18 at 13:30; Stop 10/20/18 at 13:29 Nitroglycerin (Nitrostat) 0.4 mg PRN Q5MIN PRN SL CHEST PAIN; Start 10/19/18 at 13:30; Stop 10/20/18 at 13:29 Albuterol/ Ipratropium (Duoneb) 3 ml RTQID NEB ; Start 10/19/18 at 16:00; Stop 10/19/18 at 16:00; Status DC Amlodipine Besylate (Norvasc) 5 mg 1X ONCE PO Last administered on 10/19/18at 13:53; Start 10/19/18 at 13:30; Stop 10/19/18 at 13:31; Status DC Nitroglycerin (Nitro-Bid Oint) 0.5 inch Q6HRS TP Last administered on 10/20/18at 05:45; Start 10/19/18 at 14:00 Aspirin (Ecotrin) 81 mg DAILYWBKFT PO Last administered on 10/20/18at 09:32; Start 10/19/18 at 14:00 Metoprolol Tartrate (Lopressor) 25 mg BID PO Last administered on 10/20/18at 09:33; Start 10/19/18 at 14:00 Atorvastatin Calcium (Lipitor) 40 mg QHS PO Last administered on 10/19/18at 20:32; Start 10/19/18 at 21:00 Sodium Chloride (Normal Saline Flush 3ml) 3 ml QSHIFT PRN IV AFTER MEDS AND BLOOD DRAWS; Start 10/19/18 at 15:15 Ondansetron HCl (Zofran) 4 mg PRN Q4HRS PRN IV NAUSEA/VOMITING; Start 10/19/18 at 15:15 Acetaminophen (Tylenol) 650 mg PRN Q4HRS PRN PO TEMP OVER 100.4F OR MILD PAIN; Start 10/19/18 at 15:15 Al Hydroxide/Mg Hydroxide (Mylanta Plus Xs) 30 ml PRN DAILY PRN PO HEARTBURN / GAS; Start 10/19/18 at 15:15 Clonidine HCl (Catapres) 0.1 mg PRN Q6HRS PRN PO SBP>160 OR DBP>90; Start 10/19/18 at 15:15 Docusate Sodium (Colace) 100 mg PRN BID PRN PO CONSTIPATION; Start 10/19/18 at 15:15 Albuterol/ Ipratropium (Duoneb) 3 ml Q4HRS NEB Last administered on 10/20/18at 08:55; Start 10/19/18 at 16:00 Guaifenesin (Robitussin) 200 mg PRN Q4HRS PRN PO COUGH; Start 10/19/18 at 15:15 Enoxaparin Sodium (Lovenox 40mg Syringe) 40 mg DAILY SQ ; Start 10/20/18 at 09:00; Stop 10/20/18 at 09:00; Status DC Sodium Bicarbonate (Sodium Bicarb Adult 8.4% Syr) 50 meq 1X ONCE IV Last administered on 10/19/18at 16:42; Start 10/19/18 at 16:30; Stop 10/19/18 at 16:33; Status DC Insulin Human Lispro (HumaLOG) 0-7 UNITS TIDWMEALS SQ ; Start 10/19/18 at 18:00 Dextrose (Dextrose 50%-Water Syringe) 12.5 gm PRN Q15MIN PRN IV SEE COMMENTS; Start 10/19/18 at 18:00 Active Scripts Active Reported Metoprolol Tartrate 25 Mg Tablet 12.5 Mg PO QHS Fish Oil 1,000 mg Softgel ([place]-3S/Dha/Epa/Fish Oil) 1 Each Capsule 1 Each PO [place] (Patiromer Calcium Sorbitex) 8.4 Gm Powd.pack 8.4 Gm PO DAILY Vitamin D-3 (Cholecalciferol (Vitamin D3)) 2,000 Unit Tablet 5,000 Unit PO DAILY Aspirin 325 Mg Tablet 1 Tab PO DAILY Amlodipine Besylate 5 Mg Tablet 5 Mg PO DAILY Metoprolol Tartrate 25 Mg Tablet 1 Tab PO DAILY Atorvastatin Calcium 40 Mg Tablet 1 Tab PO QHS Basaglar [place]pen U-100 (Insulin Glargine,Hum.rec.anlog) 100 Unit/1 Ml Insuln.pen 35 Unit SQ DAILY Lisinopril 20 Mg Tablet 40 Mg PO DAILY Vitals/I & O Vital Sign - Last 24 Hours 10/19/18 10/19/18 10/19/18 10/19/18 11:34 11:35 11:50 12:00 Temp 98.6 98.6 Pulse 102 106 90 Resp 22 B/P (MAP) 156/66 (96) 156/66 (96) 170/70 (103) Pulse Ox 60 68 90 91 O2 Delivery Room Air Room Air Venturi Mask Venturi Mask O2 Flow Rate 15.0 15.0 10/19/18 10/19/18 10/19/18 10/19/18 12:05 12:20 12:35 13:06 Pulse 88 90 89 88 B/P (MAP) 153/68 (96) 147/57 (87) 133/62 (85) 143/65 (91) Pulse Ox 92 93 93 94 O2 Delivery Venturi Mask Venturi Mask Venturi Mask Venturi Mask O2 Flow Rate 15.0 15.0 15.0 15.0 10/19/18 10/19/18 10/19/18 10/19/18 13:35 13:50 13:53 14:05 Pulse 88 76 81 70 B/P (MAP) 153/67 (95) 152/67 (95) 152/67 158/70 (99) Pulse Ox 95 94 94 O2 Delivery Venturi Mask Venturi Mask Venturi Mask O2 Flow Rate 15.0 15.0 15.0 10/19/18 10/19/18 10/19/18 10/19/18 14:20 14:45 15:00 15:20 Temp 99.2 99.2 Pulse 76 94 94 Resp 22 22 B/P (MAP) 152/67 (95) 176/64 (101) 152/69 (96) Pulse Ox 93 92 92 O2 Delivery Venturi Mask Venturi Mask Venturi Mask Venturi Mask O2 Flow Rate 15.0 10/19/18 10/19/18 10/19/18 10/19/18 15:35 16:49 16:50 17:00 Pulse 94 94 80 Resp 24 B/P (MAP) 152/69 152/69 140/85 (103) Pulse Ox 90 90 O2 Delivery Venturi Mask Venturi Mask O2 Flow Rate 15.0 10/19/18 10/19/18 10/19/18 10/19/18 18:00 19:00 20:00 20:01 Temp 99.0 99.0 Pulse 84 79 72 Resp 24 24 24 B/P (MAP) 120/57 (78) 113/62 (79) 138/61 (86) Pulse Ox 90 92 92 92 O2 Delivery Venturi Mask Venturi Mask Venturi Mask Venturi Mask O2 Flow Rate 15.0 10/19/18 10/19/18 10/19/18 10/19/18 20:03 20:32 21:00 22:00 Pulse 70 73 68 Resp 24 24 B/P (MAP) 138/61 127/53 (77) 144/71 (95) Pulse Ox 94 91 O2 Delivery Venturi Mask Venturi Mask Venturi Mask 10/19/18 10/19/18 10/19/18 10/20/18 23:00 23:04 23:38 00:00 Temp 98.6 98.6 Pulse 63 63 58 Resp 20 20 B/P (MAP) 111/58 (75) 111/58 119/48 (71) Pulse Ox 93 92 93 O2 Delivery Venturi Mask Venturi Mask Venturi Mask O2 Flow Rate 15.0 10/20/18 10/20/18 10/20/18 10/20/18 00:15 01:00 02:00 03:00 Pulse 66 64 68 Resp 18 20 18 B/P (MAP) 120/53 (75) 116/52 (73) 133/57 (82) Pulse Ox 95 92 91 O2 Delivery Venturi Mask Venturi Mask Venturi Mask Venturi Mask 10/20/18 10/20/18 10/20/18 10/20/18 03:15 03:54 04:00 05:00 Temp 98.9 98.9 Pulse 80 79 Resp 18 14 B/P (MAP) 158/62 (94) 171/64 (99) Pulse Ox 91 89 93 O2 Delivery Venturi Mask Venturi Mask Venturi Mask NonRebreather Mask O2 Flow Rate 15.0 10/20/18 10/20/18 10/20/18 10/20/18 05:45 06:00 08:55 09:33 Pulse 73 74 71 Resp 16 B/P (MAP) 171/64 149/71 (97) 141/62 Pulse Ox 94 92 O2 Delivery NonRebreather Mask Venturi Mask O2 Flow Rate 15.0 Intake and Output 10/19/18 10/19/18 10/20/18 15:00 23:00 07:00 Intake Total 180 ml 534 ml Output Total 900 ml 325 ml Balance -720 ml [address] Chest - 1. Small to moderate bilateral pleural effusions. 2. Bilateral infiltrates/atelectasis. 3. Right adrenal mass. 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 STEVEN STACK MD October 20, 2018 09:44
[2018-10-20] MEDS: ANTI-COAG MONITOR BY PHARMACY. MC PRN (10:11)
--- NOTE | 2018-10-20 10:23 | CONS ---
DATE OF CONSULTATION: PULMONARY CONSULTATION ATTENDING PHYSICIAN: Altaf Ingram M.D. REASON FOR CONSULTATION: Hypoxia. HISTORY OF PRESENT ILLNESS: The patient is a 78-year-old morbidly obese male who has a BMI of 43.8. He has history of tobacco use, 3 packs per day for 30 years before quitting 25 years ago. He presented to the hospital with increased shortness of breath than his baseline. The states that he has chronic dyspnea on exertion, which accentuated in the last 3 days. He denies any cough. No fever, no chills. He has some nonspecific chest pains. The patient had an OR in 2013. His states that he has not been tested for sleep apnea. The patient had a history of cardiac catheterization in 2013, had 3-vessel CAD and had successful PCI of circumflex. He underwent imaging study and I have reviewed the patient's chest x-ray. It shows bilateral lower lobe pleural effusion. He underwent CAT scan, which showed [id number] bilateral pleural effusion with associated atelectasis. 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 He is currently requiring 50% Ventimask. PAST MEDICAL HISTORY: Significant for CAD, history of atrial fibrillation, post OR, history of hypertension, OR, hyperlipidemia, diverticulosis, BPH and possible COPD. PAST SURGICAL HISTORY: Arthroscopy, cholecystectomy and tonsillectomy. ALLERGIES: None. REVIEW OF SYSTEMS: System review of 12-point systems obtained. Pertinent positives discussed in my history of present illness, otherwise noncontributory. All systems that were negative were reviewed as well. MEDICATIONS: Medications were all reviewed as listed in the MRAD. PHYSICAL EXAMINATION: VITAL SIGNS: His vital signs were reviewed. Blood pressure 141/62. Pulse ox is 92% on Ventimask. Afebrile. HEENT: Sclerae nonicteric. NECK: Supple. LUNGS: With diminished breath sounds posteriorly. CARDIOVASCULAR EXAMINATION: Regular rate and rhythm. ABDOMEN: Soft, obese. EXTREMITIES: With trace pitting edema. LABORATORY DATA: Labs were reviewed. Influenza screen negative. BUN is 58 and a creatinine of 3.0. Troponin 1.6. ABGs with a pH of 7.33, pCO2 of 45 and a pO2 of 58 on 58% FiO2. IMPRESSION: 1. Acute hypoxic respiratory failure secondary to suspected vlkge-re-ynijkxm diastolic heart failure and bilateral pleural effusions. Clinically, less likely thromboembolic disease. His venous Dopplers of the lower extremities were negative for DVT. Could not lay flat for V/Q 2. History of coronary artery disease, 3-vessel disease with percutaneous coronary intervention of circumflex in the past and now with a non-ST myocardial infarction. 3. Suspected obstructive sleep apnea. He should benefit from sleep study as an outpatient. 4. Chronic kidney disease, which makes it difficult to diurese. RECOMMENDATIONS: 1. Continue with present Venturi mask. 2. P.r.n. diuresis with a close followup on the renal function. 3. If effusions do not improve, then consider thoracentesis. 4. Bronchodilators. 5. Follow Cardiology recommendations. 6. Discussed with RN and the patient's . CRITICAL CARE TIME: 33 minutes. BEA SANDERS MD DR: DEE DEE/tyler JOB#: [id number] / [id number] SYLVIA
--- NOTE | 2018-10-20 11:12 | NUR ---
[id number] Last troponin w slight rise. Repeat w 1100 UFH . Current IV positional,patient finds "aggravating" w limited use of dominant arm. # 22 IV started above site/silent and functional. Meds changed w/o further disruption .Assist BSC walker use to stabilize, Cranky/rude to other RN assisting him. NO STOOL. Assist to stand,unable to void in urinal even w nurse placement of penis in urinal. Scant eliminated. Chair at bedside w periods somnolence when left undisturbed. Addendum: 10/20/18 at 1210 by Lluvia Valenzuela RN Amended: Links added.
--- NOTE | 2018-10-20 11:44 | PDOC2 ---
CONSULT Date of Consult Date of Consult DATE: 10/20/18 TIME: 11:36 Reason for Consult Reason for Consult: VIN Referring Physician Referring Physician: VANESSA Identification/Chief Complaint Chief Complaint SOB Source Source: Chart review, Patient History of Present Illness Reason for Visit: THIS IS A 78 YR OLD WITH SOB LAST SEVERAL DAYS. NOTED TO HAVE A CR OF 3.0 TODAY. HIS CR IS USUALLY 1.5-2.0 C/W STAGE 3 CKD. NO NSAIDS NOTED. ON IMAGING HE IS NOTED TO HAVE CHF. HE IS MORBIDLY OBESE AND HYPOXIC NEEDING SUPPLEMENTAL O2. CARDIOLOGY AND PULMONARY EVAL ONGOING. NO NSAIDS. DENIED ANY PROBLEMS EMPTYING THE BLADDER OR OTHER HX. CKD DUE TO DM II AND HTN Past Medical History Cardiovascular: AFIB (post mi), CAD, HTN, PA, Hyperlipidemia GI: Diverticulosis Musculoskeletal: low back pain ENT: Other (retinopathy) Renal/: Chronic renal failure, Benign prostatic enlarg. Endocrine: Diabetes (2) Past Surgical History Past Surgical History: Arthroscopy (left shoulder ), Cholecystectomy, Tonsillectomy, Other (PCI multipel stents 2012; eye surgery) Family History Family History: Hypertension Social History Quit ALCOHOL: none Drugs: None Lives: with Family Current Problem List Problem List Problems Medical Problems: (1) Acute on chronic renal insufficiency Status: Acute (2) CHF (congestive heart failure) Status: Acute (3) Hypoxemia Status: Acute (4) NSTEMI (non-ST elevated myocardial infarction) Status: Acute Current Medications Current Medications Current Medications Albuterol/ Ipratropium (Duoneb) 3 ml 1X ONCE NEB Last administered on 10/19/18at 12:00; Start 10/19/18 at 11:45; Stop 10/19/18 at 11:46; Status DC Heparin Sodium (Porcine) (Heparin Sodium) 4,000 unit 1X ONCE IV Last administered on 10/19/18at 12:29; Start 10/19/18 at 12:30; Stop 10/19/18 at 12:31; Status DC Heparin Sodium/ Dextrose 500 ml @ 0 mls/hr CONT PRN IV SEE I/O RECORD Last administered on 10/19/18at 12:30; Start 10/19/18 at 12:30 Heparin Sodium (Porcine) (Heparin Sodium) 3,000 unit PRN Q6HRS PRN IV FOR UFH LEVEL LESS THAN 0.2 Last administered on 5/3/19at 20:34; Start 10/19/18 at 12:30 Info (Anti-Coagulation Monitoring By Pharmacy) 1 each PRN DAILY PRN MC SEE COMMENTS Last administered on 10/20/18 10:11; Start 10/19/18 at 12:30 Furosemide (Lasix) 60 mg 1X ONCE IVP Last administered on 10/19/18 13:00; Start 10/19/18 at 13:00; Stop 10/19/18 at 13:01; Status DC Ondansetron HCl (Zofran) 4 mg PRN Q8HRS PRN IV NAUSEA/VOMITING; Start 10/19/18 at 13:30; Stop 10/20/18 at 13:29 Morphine Sulfate (Morphine Sulfate) 2 mg PRN Q2HR PRN IV PAIN; Start 10/19/18 at 13:30; Stop 10/20/18 at 13:29 Nitroglycerin (Nitrostat) 0.4 mg PRN Q5MIN PRN SL CHEST PAIN; Start 10/19/18 at 13:30; Stop 10/20/18 at 13:29 Albuterol/ Ipratropium (Duoneb) 3 ml RTQID NEB ; Start 10/19/18 at 16:00; Stop 10/19/18 at 16:00; Status DC Amlodipine Besylate (Norvasc) 5 mg 1X ONCE PO Last administered on 10/19/18 13:53; Start 10/19/18 at 13:30; Stop 10/19/18 at 13:31; Status DC Nitroglycerin (Nitro-Bid Oint) 0.5 inch Q6HRS TP Last administered on 10/20/18 05:45; Start 10/19/18 at 14:00 Aspirin (Ecotrin) 81 mg DAILYWBKFT PO Last administered on 10/20/18 09:32; Start 10/19/18 at 14:00 Metoprolol Tartrate (Lopressor) 25 mg BID PO Last administered on 10/20/18 09:33; Start 10/19/18 at 14:00 Atorvastatin Calcium (Lipitor) 40 mg QHS PO Last administered on 10/19/18 20:32; Start 10/19/18 at 21:00 Sodium Chloride (Normal Saline Flush 3ml) 3 ml QSHIFT PRN IV AFTER MEDS AND BLOOD DRAWS; Start 10/19/18 at 15:15 Ondansetron HCl (Zofran) 4 mg PRN Q4HRS PRN IV NAUSEA/VOMITING; Start 10/19/18 at 15:15 Acetaminophen (Tylenol) 650 mg PRN Q4HRS PRN PO TEMP OVER 100.4F OR MILD PAIN; Start 10/19/18 at 15:15 Al Hydroxide/Mg Hydroxide (Mylanta Plus Xs) 30 ml PRN DAILY PRN PO HEARTBURN / GAS; Start 10/19/18 at 15:15 Clonidine HCl (Catapres) 0.1 mg PRN Q6HRS PRN PO SBP>160 OR DBP>90; Start 10/19/18 at 15:15 Docusate Sodium (Colace) 100 mg PRN BID PRN PO CONSTIPATION; Start 10/19/18 at 15:15 Albuterol/ Ipratropium (Duoneb) 3 ml Q4HRS NEB Last administered on 10/20/18at 08:55; Start 10/19/18 at 16:00 Guaifenesin (Robitussin) 200 mg PRN Q4HRS PRN PO COUGH; Start 10/19/18 at 15:15 Enoxaparin Sodium (Lovenox 40mg Syringe) 40 mg DAILY SQ ; Start 10/20/18 at 09:00; Stop 10/20/18 at 09:00; Status DC Sodium Bicarbonate (Sodium Bicarb Adult 8.4% Syr) 50 meq 1X ONCE IV Last administered on 10/19/18at 16:42; Start 10/19/18 at 16:30; Stop 10/19/18 at 16:33; Status DC Insulin Human Lispro (HumaLOG) 0-7 UNITS TIDWMEALS SQ ; Start 10/19/18 at 18:00 Dextrose (Dextrose 50%-Water Syringe) 12.5 gm PRN Q15MIN PRN IV SEE COMMENTS; Start 10/19/18 at 18:00 Active Scripts Active Reported Metoprolol Tartrate 25 Mg Tablet 12.5 Mg PO QHS Fish Oil 1,000 mg Softgel ([place]urora-3S/Dha/Epa/Fish Oil) 1 Each Capsule 1 Each PO [place] (Patiromer Calcium Sorbitex) 8.4 Gm Powd.pack 8.4 Gm PO DAILY Vitamin D-3 (Cholecalciferol (Vitamin D3)) 2,000 Unit Tablet 5,000 Unit PO DAILY Aspirin 325 Mg Tablet 1 Tab PO DAILY Amlodipine Besylate 5 Mg Tablet 5 Mg PO DAILY Metoprolol Tartrate 25 Mg Tablet 1 Tab PO DAILY Atorvastatin Calcium 40 Mg Tablet 1 Tab PO QHS Suzanne Parra U-100 (Insulin Glargine,Hum.rec.anlog) 100 Unit/1 Ml Insuln.pen 35 Unit SQ DAILY Lisinopril 20 Mg Tablet 40 Mg PO DAILY Allergies Allergies: Coded Allergies: No Known Drug Allergies (Unverified , 06/03/13) ROS Review of System DIFFICULT TO OBTAIN, PT ON FM O2 Physical Exam General: Alert, Oriented X3, Cooperative, No acute distress HEENT: Atraumatic, PERRLA, EOMI Lungs: Other (DECREASED AT BASES) Heart: Regular rate, Normal S1, Normal S2 Abdomen: Normal bowel sounds, Soft, No tenderness Extremities: No clubbing Skin: No breakdown Neuro: Normal speech, Sensation intact Psych/Mental Status: Mental status NL, Mood NL MUSCULOSKELETAL: No joint tenderness, No deformity, No swelling Vitals VITALS Vital Signs Date Time Temp Pulse Resp B/P (MAP) Pulse Ox O2 Delivery O2 Flow Rate FiO2 10/20/18 11:09 55 142/62 (88) 92 NonRebreather Mask 10/20/18 09:00 20 10/20/18 08:55 15.0 10/20/18 08:00 97.9 97.9 Labs Labs Laboratory Tests Test 10/19/18 11:40 10/19/18 11:55 10/19/18 15:45 10/19/18 16:35 White Blood Count 11.0 x10^3/uL (4.0-11.0) Red Blood Count 4.25 x10^6/uL (4.30-5.70) Hemoglobin 12.2 g/dL (13.0-17.5) Hematocrit 37.4 % (39.0-53.0) Mean Corpuscular Volume 88 fL (79-100) Mean Corpuscular Hemoglobin 29 pg (25-35) Mean Corpuscular Hemoglobin Concent 33 g/dL (31-37) Red Cell Distribution Width 13.8 % (11.5-14.5) Platelet Count 310 x10^3/uL (140-400) Neutrophils (%) (Auto) 82 % (31-73) Lymphocytes (%) (Auto) 10 % (24-48) Monocytes (%) (Auto) 7 % (0-9) Eosinophils (%) (Auto) 0 % (0-3) Basophils (%) (Auto) 1 % (0-3) Neutrophils # (Auto) 9.0 x10^3uL (1.8-7.7) Lymphocytes # (Auto) 1.1 x10^3/uL (1.0-4.8) Monocytes # (Auto) 0.8 x10^3/uL (0.0-1.1) Eosinophils # (Auto) 0.0 x10^3/uL (0.0-0.7) Basophils # (Auto) 0.1 x10^3/uL (0.0-0.2) D-Dimer (Rashmi) 0.83 ug/mlFEU (0.00-0.50) Sodium Level 139 mmol/L (136-145) Potassium Level 4.3 mmol/L (3.5-5.1) Chloride Level 103 mmol/L (98-107) Carbon Dioxide Level 25 mmol/L (21-32) Anion Gap 11 (6-14) Blood Urea Nitrogen 55 mg/dL (8-26) Creatinine 2.8 mg/dL (0.7-1.3) Estimated GFR (Cockcroft-Gault) 22.0 BUN/Creatinine Ratio 20 (6-20) Glucose Level 179 mg/dL (70-99) Calcium Level 8.9 mg/dL (8.5-10.1) Total Bilirubin 0.4 mg/dL (0.2-1.0) Aspartate Amino Transf (AST/SGOT) 20 U/L (15-37) Alanine Aminotransferase (ALT/SGPT) 19 U/L (16-63) Alkaline Phosphatase 73 U/L (46-116) Troponin I Quantitative 0.739 ng/mL (0.000-0.055) 1.204 ng/mL (0.000-0.055) TW-Uky-Q-Type Natriuretic Peptide 83332 pg/mL (0-449) Total Protein 7.2 g/dL (6.4-8.2) Albumin 2.7 g/dL (3.4-5.0) Albumin/Globulin Ratio 0.6 (1.0-1.7) Triglycerides Level 123 mg/dL (0-150) Cholesterol Level 177 mg/dL (0-200) LDL Cholesterol, Calculated 104 mg/dL (0-100) VLDL Cholesterol, Calculated 25 mg/dL (0-40) Non-HDL Cholesterol Calculated 129 mg/dL (0-129) HDL Cholesterol 48 mg/dL (40-60) Cholesterol/HDL Ratio 3.7 Influenza Type A Antigen Negative (NEGATIVE) Influenza Type B Antigen Negative (NEGATIVE) O2 Saturation 88 % (92-99) Arterial Blood pH 7.33 (7.35-7.45) Arterial Blood pCO2 at Patient Temp 45 mmHg (35-46) Arterial Blood pO2 at Patient Temp 58 mmHg (65-108) Arterial Blood HCO3 24 mmol/L (21-28) Arterial Blood Base Excess -3 mmol/L (-3-3) FiO2 50 Urine Collection Type Void Urine Color Yellow Urine Clarity Clear Urine pH 5.0 Urine Specific [place] 1.015 Urine Protein >=300 mg/dL (NEG-TRACE) Urine Glucose (UA) 100 mg/dL (NEG) Urine Ketones (Stick) Negative mg/dL (NEG) Urine Blood Moderate (NEG) Urine Nitrite Negative (NEG) Urine Bilirubin Negative (NEG) Urine Urobilinogen Dipstick 0.2 mg/dL (0.2 mg/dL) Urine Leukocyte Esterase Negative (NEG) Urine RBC 1-2 /HPF (0-2) Urine WBC Rare /HPF (0-4) Urine Squamous Epithelial Cells None /LPF Urine Bacteria Few /HPF (0-FEW) Urine Hyaline Casts Few /HPF Urine Mucus Mod /LPF Test 10/19/18 18:05 10/19/18 19:30 10/20/18 03:00 Glucose (Fingerstick) 129 mg/dL (70-99) Heparin Anti-Xa Act, Unfractionated < 0.10 IU/mL (0.30-0.70) 0.21 IU/mL (0.30-0.70) Troponin I Quantitative 1.442 ng/mL (0.000-0.055) 1.612 ng/mL (0.000-0.055) White Blood Count 7.9 x10^3/uL (4.0-11.0) Red Blood Count 3.55 x10^6/uL (4.30-5.70) Hemoglobin 10.2 g/dL (13.0-17.5) Hematocrit 31.3 % (39.0-53.0) Mean Corpuscular Volume 88 fL (79-100) Mean Corpuscular Hemoglobin 29 pg (25-35) Mean Corpuscular Hemoglobin Concent 33 g/dL (31-37) Red Cell Distribution Width 14.0 % (11.5-14.5) Platelet Count 253 x10^3/uL (140-400) Neutrophils (%) (Auto) 62 % (31-73) Lymphocytes (%) (Auto) 24 % (24-48) Monocytes (%) (Auto) 11 % (0-9) Eosinophils (%) (Auto) 2 % (0-3) Basophils (%) (Auto) 1 % (0-3) Neutrophils # (Auto) 4.9 x10^3uL (1.8-7.7) Lymphocytes # (Auto) 1.9 x10^3/uL (1.0-4.8) Monocytes # (Auto) 0.8 x10^3/uL (0.0-1.1) Eosinophils # (Auto) 0.2 x10^3/uL (0.0-0.7) Basophils # (Auto) 0.1 x10^3/uL (0.0-0.2) Sodium Level 141 mmol/L (136-145) Potassium Level 3.8 mmol/L (3.5-5.1) Chloride Level 104 mmol/L (98-107) Carbon Dioxide Level 27 mmol/L (21-32) Anion Gap 10 (6-14) Blood Urea Nitrogen 58 mg/dL (8-26) Creatinine 3.0 mg/dL (0.7-1.3) Estimated GFR (Cockcroft-Gault) 20.3 BUN/Creatinine Ratio 19 (6-20) Glucose Level 147 mg/dL (70-99) Calcium Level 7.9 mg/dL (8.5-10.1) Total Bilirubin 0.3 mg/dL (0.2-1.0) Aspartate Amino Transf (AST/SGOT) 23 U/L (15-37) Alanine Aminotransferase (ALT/SGPT) 18 U/L (16-63) Alkaline Phosphatase 61 U/L (46-116) Total Protein 5.0 g/dL (6.4-8.2) Albumin 2.2 g/dL (3.4-5.0) Albumin/Globulin Ratio 0.8 (1.0-1.7) Laboratory Tests Test 10/19/18 11:40 10/19/18 11:55 10/19/18 15:45 10/19/18 16:35 White Blood Count 11.0 x10^3/uL (4.0-11.0) Red Blood Count 4.25 x10^6/uL (4.30-5.70) Hemoglobin 12.2 g/dL (13.0-17.5) Hematocrit 37.4 % (39.0-53.0) Mean Corpuscular Volume 88 fL (79-100) Mean Corpuscular Hemoglobin 29 pg (25-35) Mean Corpuscular Hemoglobin Concent 33 g/dL (31-37) Red Cell Distribution Width 13.8 % (11.5-14.5) Platelet Count 310 x10^3/uL (140-400) Neutrophils (%) (Auto) 82 % (31-73) Lymphocytes (%) (Auto) 10 % (24-48) Monocytes (%) (Auto) 7 % (0-9) Eosinophils (%) (Auto) 0 % (0-3) Basophils (%) (Auto) 1 % (0-3) Neutrophils # (Auto) 9.0 x10^3uL (1.8-7.7) Lymphocytes # (Auto) 1.1 x10^3/uL (1.0-4.8) Monocytes # (Auto) 0.8 x10^3/uL (0.0-1.1) Eosinophils # (Auto) 0.0 x10^3/uL (0.0-0.7) Basophils # (Auto) 0.1 x10^3/uL (0.0-0.2) D-Dimer (Rashmi) 0.83 ug/mlFEU (0.00-0.50) Sodium Level 139 mmol/L (136-145) Potassium Level 4.3 mmol/L (3.5-5.1) Chloride Level 103 mmol/L (98-107) Carbon Dioxide Level 25 mmol/L (21-32) Anion Gap 11 (6-14) Blood Urea Nitrogen 55 mg/dL (8-26) Creatinine 2.8 mg/dL (0.7-1.3) Estimated GFR (Cockcroft-Gault) 22.0 BUN/Creatinine Ratio 20 (6-20) Glucose Level 179 mg/dL (70-99) Calcium Level 8.9 mg/dL (8.5-10.1) Total Bilirubin 0.4 mg/dL (0.2-1.0) Aspartate Amino Transf (AST/SGOT) 20 U/L (15-37) Alanine Aminotransferase (ALT/SGPT) 19 U/L (16-63) Alkaline Phosphatase 73 U/L (46-116) Troponin I Quantitative 0.739 ng/mL (0.000-0.055) 1.204 ng/mL (0.000-0.055) QY-Emi-C-Type Natriuretic Peptide 75053 pg/mL (0-449) Total Protein 7.2 g/dL (6.4-8.2) Albumin 2.7 g/dL (3.4-5.0) Albumin/Globulin Ratio 0.6 (1.0-1.7) Triglycerides Level 123 mg/dL (0-150) Cholesterol Level 177 mg/dL (0-200) LDL Cholesterol, Calculated 104 mg/dL (0-100) VLDL Cholesterol, Calculated 25 mg/dL (0-40) Non-HDL Cholesterol Calculated 129 mg/dL (0-129) HDL Cholesterol 48 mg/dL (40-60) Cholesterol/HDL Ratio 3.7 Influenza Type A Antigen Negative (NEGATIVE) Influenza Type B Antigen Negative (NEGATIVE) O2 Saturation 88 % (92-99) Arterial Blood pH 7.33 (7.35-7.45) Arterial Blood pCO2 at Patient Temp 45 mmHg (35-46) Arterial Blood pO2 at Patient Temp 58 mmHg (65-108) Arterial Blood HCO3 24 mmol/L (21-28) Arterial Blood Base Excess -3 mmol/L (-3-3) FiO2 50 Urine Collection Type Void Urine Color Yellow Urine Clarity Clear Urine pH 5.0 Urine Specific [place] 1.015 Urine Protein >=300 mg/dL (NEG-TRACE) Urine Glucose (UA) 100 mg/dL (NEG) Urine Ketones (Stick) Negative mg/dL (NEG) Urine Blood Moderate (NEG) Urine Nitrite Negative (NEG) Urine Bilirubin Negative (NEG) Urine Urobilinogen Dipstick 0.2 mg/dL (0.2 mg/dL) Urine Leukocyte Esterase Negative (NEG) Urine RBC 1-2 /HPF (0-2) Urine WBC Rare /HPF (0-4) Urine Squamous Epithelial Cells None /LPF Urine Bacteria Few /HPF (0-FEW) Urine Hyaline Casts Few /HPF Urine Mucus Mod /LPF Test 10/19/18 18:05 10/19/18 19:30 10/20/18 03:00 Glucose (Fingerstick) 129 mg/dL (70-99) Heparin Anti-Xa Act, Unfractionated < 0.10 IU/mL (0.30-0.70) 0.21 IU/mL (0.30-0.70) Troponin I Quantitative 1.442 ng/mL (0.000-0.055) 1.612 ng/mL (0.000-0.055) White Blood Count 7.9 x10^3/uL (4.0-11.0) Red Blood Count 3.55 x10^6/uL (4.30-5.70) Hemoglobin 10.2 g/dL (13.0-17.5) Hematocrit 31.3 % (39.0-53.0) Mean Corpuscular Volume 88 fL (79-100) Mean Corpuscular Hemoglobin 29 pg (25-35) Mean Corpuscular Hemoglobin Concent 33 g/dL (31-37) Red Cell Distribution Width 14.0 % (11.5-14.5) Platelet Count 253 x10^3/uL (140-400) Neutrophils (%) (Auto) 62 % (31-73) Lymphocytes (%) (Auto) 24 % (24-48) Monocytes (%) (Auto) 11 % (0-9) Eosinophils (%) (Auto) 2 % (0-3) Basophils (%) (Auto) 1 % (0-3) Neutrophils # (Auto) 4.9 x10^3uL (1.8-7.7) Lymphocytes # (Auto) 1.9 x10^3/uL (1.0-4.8) Monocytes # (Auto) 0.8 x10^3/uL (0.0-1.1) Eosinophils # (Auto) 0.2 x10^3/uL (0.0-0.7) Basophils # (Auto) 0.1 x10^3/uL (0.0-0.2) Sodium Level 141 mmol/L (136-145) Potassium Level 3.8 mmol/L (3.5-5.1) Chloride Level 104 mmol/L (98-107) Carbon Dioxide Level 27 mmol/L (21-32) Anion Gap 10 (6-14) Blood Urea Nitrogen 58 mg/dL (8-26) Creatinine 3.0 mg/dL (0.7-1.3) Estimated GFR (Cockcroft-Gault) 20.3 BUN/Creatinine Ratio 19 (6-20) Glucose Level 147 mg/dL (70-99) Calcium Level 7.9 mg/dL (8.5-10.1) Total Bilirubin 0.3 mg/dL (0.2-1.0) Aspartate Amino Transf (AST/SGOT) 23 U/L (15-37) Alanine Aminotransferase (ALT/SGPT) 18 U/L (16-63) Alkaline Phosphatase 61 U/L (46-116) Total Protein 5.0 g/dL (6.4-8.2) Albumin 2.2 g/dL (3.4-5.0) Albumin/Globulin Ratio 0.8 (1.0-1.7) Assessment/Plan Assessment/Plan IMP VIN WITH CR OF 3.0 CKD STAGE 3 WITH CR OF 1.5-2.0 ACUTE HYPOXIC RESP FAILURE NSTEMI CHF DIASTOLIC-ACUTE CAD HX WITH PTCA HTN HX DM II HX MORBID OBESITY RIGHT ADRENAL ADENOMA PLAN AGREE WITH HOLDING WHIT-I DIURESIS TOLERATED PULM EVAL CARDIOLOGY EVAL WILL FOLLOW ROD PELAEZ MD October 20, 2018 11:44
--- NOTE | 2018-10-20 13:24 | PDOC ---
PROGRESS NOTES Subjective Subjective Patient seen and examined The patient looks and feels better today. Objective Objective Vital Signs Date Time Temp Pulse Resp B/P (MAP) Pulse Ox O2 Delivery O2 Flow Rate FiO2 10/20/18 13:06 93 Venturi Mask 15.0 10/20/18 12:00 98.0 64 22 153/80 (104) 98.0 Intake and Output 10/20/18 07:00 Intake Total 714 ml Output Total 1225 ml Balance -511 ml Intake Oral 380 ml IV Total 334 ml Output Urine Total 1225 ml Physical Exam Abdomen: Normal bowel sounds Heart: Regular rate General: mild distress Lungs: Other (decreased breath sounds) Assessment Assessment Problems Medical Problems: (1) Acute on chronic renal insufficiency Status: Acute (2) CHF (congestive heart failure) Status: Acute (3) Hypoxemia Status: Acute (4) NSTEMI (non-ST elevated myocardial infarction) Status: Acute 1. NSTEMI: LBBB, Trop peak at 1.6. Echocardiogram with intact LV systolic function. No chest pain. Continue medical treatment. Creatinine now 3.0 and will continue to monitor. Prior to any use of contrast. 2. Acute CHF with likely diastolic dysfunction. Improved. 3. CAD; PCI 3 stents in the past see above 4. HTN: controlled 5. HLP 6. DM2 7. 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 Followed by the renal service. 8. Morbid obesity Comment Review of Relevant I have reviewed the following items kristin (where applicable) has been applied. Labs Laboratory Tests Test 10/19/18 11:40 10/19/18 11:55 10/19/18 15:45 10/19/18 16:35 White Blood Count 11.0 x10^3/uL (4.0-11.0) Red Blood Count 4.25 x10^6/uL (4.30-5.70) Hemoglobin 12.2 g/dL (13.0-17.5) Hematocrit 37.4 % (39.0-53.0) Mean Corpuscular Volume 88 fL (79-100) Mean Corpuscular Hemoglobin 29 pg (25-35) Mean Corpuscular Hemoglobin Concent 33 g/dL (31-37) Red Cell Distribution Width 13.8 % (11.5-14.5) Platelet Count 310 x10^3/uL (140-400) Neutrophils (%) (Auto) 82 % (31-73) Lymphocytes (%) (Auto) 10 % (24-48) Monocytes (%) (Auto) 7 % (0-9) Eosinophils (%) (Auto) 0 % (0-3) Basophils (%) (Auto) 1 % (0-3) Neutrophils # (Auto) 9.0 x10^3uL (1.8-7.7) Lymphocytes # (Auto) 1.1 x10^3/uL (1.0-4.8) Monocytes # (Auto) 0.8 x10^3/uL (0.0-1.1) Eosinophils # (Auto) 0.0 x10^3/uL (0.0-0.7) Basophils # (Auto) 0.1 x10^3/uL (0.0-0.2) D-Dimer (Rashmi) 0.83 ug/mlFEU (0.00-0.50) Sodium Level 139 mmol/L (136-145) Potassium Level 4.3 mmol/L (3.5-5.1) Chloride Level 103 mmol/L (98-107) Carbon Dioxide Level 25 mmol/L (21-32) Anion Gap 11 (6-14) Blood Urea Nitrogen 55 mg/dL (8-26) Creatinine 2.8 mg/dL (0.7-1.3) Estimated GFR (Cockcroft-Gault) 22.0 BUN/Creatinine Ratio 20 (6-20) Glucose Level 179 mg/dL (70-99) Calcium Level 8.9 mg/dL (8.5-10.1) Total Bilirubin 0.4 mg/dL (0.2-1.0) Aspartate Amino Transf (AST/SGOT) 20 U/L (15-37) Alanine Aminotransferase (ALT/SGPT) 19 U/L (16-63) Alkaline Phosphatase 73 U/L (46-116) Troponin I Quantitative 0.739 ng/mL (0.000-0.055) 1.204 ng/mL (0.000-0.055) SW-Dwr-P-Type Natriuretic Peptide 30350 pg/mL (0-449) Total Protein 7.2 g/dL (6.4-8.2) Albumin 2.7 g/dL (3.4-5.0) Albumin/Globulin Ratio 0.6 (1.0-1.7) Triglycerides Level 123 mg/dL (0-150) Cholesterol Level 177 mg/dL (0-200) LDL Cholesterol, Calculated 104 mg/dL (0-100) VLDL Cholesterol, Calculated 25 mg/dL (0-40) Non-HDL Cholesterol Calculated 129 mg/dL (0-129) HDL Cholesterol 48 mg/dL (40-60) Cholesterol/HDL Ratio 3.7 Influenza Type A Antigen Negative (NEGATIVE) Influenza Type B Antigen Negative (NEGATIVE) O2 Saturation 88 % (92-99) Arterial Blood pH 7.33 (7.35-7.45) Arterial Blood pCO2 at Patient Temp 45 mmHg (35-46) Arterial Blood pO2 at Patient Temp 58 mmHg (65-108) Arterial Blood HCO3 24 mmol/L (21-28) Arterial Blood Base Excess -3 mmol/L (-3-3) FiO2 50 Urine Collection Type Void Urine Color Yellow Urine Clarity Clear Urine pH 5.0 Urine Specific [place] 1.015 Urine Protein >=300 mg/dL (NEG-TRACE) Urine Glucose (UA) 100 mg/dL (NEG) Urine Ketones (Stick) Negative mg/dL (NEG) Urine Blood Moderate (NEG) Urine Nitrite Negative (NEG) Urine Bilirubin Negative (NEG) Urine Urobilinogen Dipstick 0.2 mg/dL (0.2 mg/dL) Urine Leukocyte Esterase Negative (NEG) Urine RBC 1-2 /HPF (0-2) Urine WBC Rare /HPF (0-4) Urine Squamous Epithelial Cells None /LPF Urine Bacteria Few /HPF (0-FEW) Urine Hyaline Casts Few /HPF Urine Mucus Mod /LPF Test 10/19/18 18:05 10/19/18 19:30 10/20/18 03:00 10/20/18 11:20 Glucose (Fingerstick) 129 mg/dL (70-99) Heparin Anti-Xa Act, Unfractionated < 0.10 IU/mL (0.30-0.70) 0.21 IU/mL (0.30-0.70) 0.32 IU/mL (0.30-0.70) Troponin I Quantitative 1.442 ng/mL (0.000-0.055) 1.612 ng/mL (0.000-0.055) 1.218 ng/mL (0.000-0.055) White Blood Count 7.9 x10^3/uL (4.0-11.0) Red Blood Count 3.55 x10^6/uL (4.30-5.70) Hemoglobin 10.2 g/dL (13.0-17.5) Hematocrit 31.3 % (39.0-53.0) Mean Corpuscular Volume 88 fL (79-100) Mean Corpuscular Hemoglobin 29 pg (25-35) Mean Corpuscular Hemoglobin Concent 33 g/dL (31-37) Red Cell Distribution Width 14.0 % (11.5-14.5) Platelet Count 253 x10^3/uL (140-400) Neutrophils (%) (Auto) 62 % (31-73) Lymphocytes (%) (Auto) 24 % (24-48) Monocytes (%) (Auto) 11 % (0-9) Eosinophils (%) (Auto) 2 % (0-3) Basophils (%) (Auto) 1 % (0-3) Neutrophils # (Auto) 4.9 x10^3uL (1.8-7.7) Lymphocytes # (Auto) 1.9 x10^3/uL (1.0-4.8) Monocytes # (Auto) 0.8 x10^3/uL (0.0-1.1) Eosinophils # (Auto) 0.2 x10^3/uL (0.0-0.7) Basophils # (Auto) 0.1 x10^3/uL (0.0-0.2) Sodium Level 141 mmol/L (136-145) Potassium Level 3.8 mmol/L (3.5-5.1) Chloride Level 104 mmol/L (98-107) Carbon Dioxide Level 27 mmol/L (21-32) Anion Gap 10 (6-14) Blood Urea Nitrogen 58 mg/dL (8-26) Creatinine 3.0 mg/dL (0.7-1.3) Estimated GFR (Cockcroft-Gault) 20.3 BUN/Creatinine Ratio 19 (6-20) Glucose Level 147 mg/dL (70-99) Calcium Level 7.9 mg/dL (8.5-10.1) Total Bilirubin 0.3 mg/dL (0.2-1.0) Aspartate Amino Transf (AST/SGOT) 23 U/L (15-37) Alanine Aminotransferase (ALT/SGPT) 18 U/L (16-63) Alkaline Phosphatase 61 U/L (46-116) Total Protein 5.0 g/dL (6.4-8.2) Albumin 2.2 g/dL (3.4-5.0) Albumin/Globulin Ratio 0.8 (1.0-1.7) Laboratory Tests Test 10/19/18 15:45 10/19/18 16:35 10/19/18 18:05 10/19/18 19:30 Urine Collection Type Void Urine Color Yellow Urine Clarity Clear Urine pH 5.0 Urine Specific [place] 1.015 Urine Protein >=300 mg/dL (NEG-TRACE) Urine Glucose (UA) 100 mg/dL (NEG) Urine Ketones (Stick) Negative mg/dL (NEG) Urine Blood Moderate (NEG) Urine Nitrite Negative (NEG) Urine Bilirubin Negative (NEG) Urine Urobilinogen Dipstick 0.2 mg/dL (0.2 mg/dL) Urine Leukocyte Esterase Negative (NEG) Urine RBC 1-2 /HPF (0-2) Urine WBC Rare /HPF (0-4) Urine Squamous Epithelial Cells None /LPF Urine Bacteria Few /HPF (0-FEW) Urine Hyaline Casts Few /HPF Urine Mucus Mod /LPF Troponin I Quantitative 1.204 ng/mL (0.000-0.055) 1.442 ng/mL (0.000-0.055) Glucose (Fingerstick) 129 mg/dL (70-99) Heparin Anti-Xa Act, Unfractionated < 0.10 IU/mL (0.30-0.70) Test 10/20/18 03:00 10/20/18 11:20 White Blood Count 7.9 x10^3/uL (4.0-11.0) Red Blood Count 3.55 x10^6/uL (4.30-5.70) Hemoglobin 10.2 g/dL (13.0-17.5) Hematocrit 31.3 % (39.0-53.0) Mean Corpuscular Volume 88 fL (79-100) Mean Corpuscular Hemoglobin 29 pg (25-35) Mean Corpuscular Hemoglobin Concent 33 g/dL (31-37) Red Cell Distribution Width 14.0 % (11.5-14.5) Platelet Count 253 x10^3/uL (140-400) Neutrophils (%) (Auto) 62 % (31-73) Lymphocytes (%) (Auto) 24 % (24-48) Monocytes (%) (Auto) 11 % (0-9) Eosinophils (%) (Auto) 2 % (0-3) Basophils (%) (Auto) 1 % (0-3) Neutrophils # (Auto) 4.9 x10^3uL (1.8-7.7) Lymphocytes # (Auto) 1.9 x10^3/uL (1.0-4.8) Monocytes # (Auto) 0.8 x10^3/uL (0.0-1.1) Eosinophils # (Auto) 0.2 x10^3/uL (0.0-0.7) Basophils # (Auto) 0.1 x10^3/uL (0.0-0.2) Heparin Anti-Xa Act, Unfractionated 0.21 IU/mL (0.30-0.70) 0.32 IU/mL (0.30-0.70) Sodium Level 141 mmol/L (136-145) Potassium Level 3.8 mmol/L (3.5-5.1) Chloride Level 104 mmol/L (98-107) Carbon Dioxide Level 27 mmol/L (21-32) Anion Gap 10 (6-14) Blood Urea Nitrogen 58 mg/dL (8-26) Creatinine 3.0 mg/dL (0.7-1.3) Estimated GFR (Cockcroft-Gault) 20.3 BUN/Creatinine Ratio 19 (6-20) Glucose Level 147 mg/dL (70-99) Calcium Level 7.9 mg/dL (8.5-10.1) Total Bilirubin 0.3 mg/dL (0.2-1.0) Aspartate Amino Transf (AST/SGOT) 23 U/L (15-37) Alanine Aminotransferase (ALT/SGPT) 18 U/L (16-63) Alkaline Phosphatase 61 U/L (46-116) Troponin I Quantitative 1.612 ng/mL (0.000-0.055) 1.218 ng/mL (0.000-0.055) Total Protein 5.0 g/dL (6.4-8.2) Albumin 2.2 g/dL (3.4-5.0) Albumin/Globulin Ratio 0.8 (1.0-1.7) Medications Current Medications Albuterol/ Ipratropium (Duoneb) 3 ml 1X ONCE NEB Last administered on 10/19/18at 12:00; Start 10/19/18 at 11:45; Stop 10/19/18 at 11:46; Status DC Heparin Sodium (Porcine) (Heparin Sodium) 4,000 unit 1X ONCE IV Last administered on 10/19/18at 12:29; Start 10/19/18 at 12:30; Stop 10/19/18 at 12:31; Status DC Heparin Sodium/ Dextrose 500 ml @ 0 mls/hr CONT PRN IV SEE I/O RECORD Last administered on 10/19/18at 12:30; Start 10/19/18 at 12:30 Heparin Sodium (Porcine) (Heparin Sodium) 3,000 unit PRN Q6HRS PRN IV FOR UFH LEVEL LESS THAN 0.2 Last administered on 10/19/18at 20:34; Start 10/19/18 at 12:30 Info (Anti-Coagulation Monitoring By Pharmacy) 1 each PRN DAILY PRN MC SEE COMMENTS Last administered on 10/20/18 10:11; Start 10/19/18 at 12:30 Furosemide (Lasix) 60 mg 1X ONCE IVP Last administered on 10/19/18 13:00; Start 10/19/18 at 13:00; Stop 10/19/18 at 13:01; Status DC Ondansetron HCl (Zofran) 4 mg PRN Q8HRS PRN IV NAUSEA/VOMITING; Start 10/19/18 at 13:30; Stop 10/20/18 at 13:29 Morphine Sulfate (Morphine Sulfate) 2 mg PRN Q2HR PRN IV PAIN; Start 10/19/18 at 13:30; Stop 10/20/18 at 13:29 Nitroglycerin (Nitrostat) 0.4 mg PRN Q5MIN PRN SL CHEST PAIN; Start 10/19/18 at 13:30; Stop 10/20/18 at 13:29 Albuterol/ Ipratropium (Duoneb) 3 ml RTQID NEB ; Start 10/19/18 at 16:00; Stop 10/19/18 at 16:00; Status DC Amlodipine Besylate (Norvasc) 5 mg 1X ONCE PO Last administered on 10/19/18 13:53; Start 10/19/18 at 13:30; Stop 10/19/18 at 13:31; Status DC Nitroglycerin (Nitro-Bid Oint) 0.5 inch Q6HRS TP Last administered on 10/20/18 05:45; Start 10/19/18 at 14:00 Aspirin (Ecotrin) 81 mg DAILYWBKFT PO Last administered on 10/20/18 09:32; Start 10/19/18 at 14:00 Metoprolol Tartrate (Lopressor) 25 mg BID PO Last administered on 10/20/18 09:33; Start 10/19/18 at 14:00 Atorvastatin Calcium (Lipitor) 40 mg QHS PO Last administered on 10/19/18at 20:32; Start 10/19/18 at 21:00 Sodium Chloride (Normal Saline Flush 3ml) 3 ml QSHIFT PRN IV AFTER MEDS AND BLOOD DRAWS; Start 10/19/18 at 15:15 Ondansetron HCl (Zofran) 4 mg PRN Q4HRS PRN IV NAUSEA/VOMITING; Start 10/19/18 at 15:15 Acetaminophen (Tylenol) 650 mg PRN Q4HRS PRN PO TEMP OVER 100.4F OR MILD PAIN; Start 10/19/18 at 15:15 Al Hydroxide/Mg Hydroxide (Mylanta Plus Xs) 30 ml PRN DAILY PRN PO HEARTBURN / GAS; Start 10/19/18 at 15:15 Clonidine HCl (Catapres) 0.1 mg PRN Q6HRS PRN PO SBP>160 OR DBP>90; Start 10/19/18 at 15:15 Docusate Sodium (Colace) 100 mg PRN BID PRN PO CONSTIPATION; Start 10/19/18 at 15:15 Albuterol/ Ipratropium (Duoneb) 3 ml Q4HRS NEB Last administered on 10/20/18 13:06; Start 10/19/18 at 16:00 Guaifenesin (Robitussin) 200 mg PRN Q4HRS PRN PO COUGH; Start 10/19/18 at 15:15 Enoxaparin Sodium (Lovenox 40mg Syringe) 40 mg DAILY SQ ; Start 10/20/18 at 09:00; Stop 10/20/18 at 09:00; Status DC Sodium Bicarbonate (Sodium Bicarb Adult 8.4% Syr) 50 meq 1X ONCE IV Last admin istered on 10/19/18at 16:42; Start 10/19/18 at 16:30; Stop 10/19/18 at 16:33; Status DC Insulin Human Lispro (HumaLOG) 0-7 UNITS TIDWMEALS SQ ; Start 10/19/18 at 18:00 Dextrose (Dextrose 50%-Water Syringe) 12.5 gm PRN Q15MIN PRN IV SEE COMMENTS; Start 10/19/18 at 18:00 Furosemide (Lasix) 40 mg Q8HRS IVP ; Start 10/20/18 at 14:00 Active Scripts Active Reported Metoprolol Tartrate 25 Mg Tablet 12.5 Mg PO QHS Fish Oil 1,000 mg Softgel ([place]-3S/Dha/Epa/Fish Oil) 1 Each Capsule 1 Each PO [place] (Patiromer Calcium Sorbitex) 8.4 Gm Powd.pack 8.4 Gm PO DAILY Vitamin D-3 (Cholecalciferol (Vitamin D3)) 2,000 Unit Tablet 5,000 Unit PO DAILY Aspirin 325 Mg Tablet 1 Tab PO DAILY Amlodipine Besylate 5 Mg Tablet 5 Mg PO DAILY Metoprolol Tartrate 25 Mg Tablet 1 Tab PO DAILY Atorvastatin Calcium 40 Mg Tablet 1 Tab PO QHS Basaglar Kwikpen U-100 (Insulin Glargine,Hum.rec.anlog) 100 Unit/1 Ml Insuln.pen 35 Unit SQ DAILY Lisinopril 20 Mg Tablet 40 Mg PO DAILY Vitals/I & O Vital Sign - Last 24 Hours 10/19/18 10/19/18 10/19/18 10/19/18 13:35 13:50 13:53 14:05 Pulse 88 76 81 70 B/P (MAP) 153/67 (95) 152/67 (95) 152/67 158/70 (99) Pulse Ox 95 94 94 O2 Delivery Venturi Mask Venturi Mask Venturi Mask O2 Flow Rate 15.0 15.0 15.0 10/19/18 10/19/18 10/19/18 10/19/18 14:20 14:45 15:00 15:20 Temp 99.2 99.2 Pulse 76 94 94 Resp 22 22 B/P (MAP) 152/67 (95) 176/64 (101) 152/69 (96) Pulse Ox 93 92 92 O2 Delivery Venturi Mask Venturi Mask Venturi Mask Venturi Mask O2 Flow Rate 15.0 10/19/18 10/19/18 10/19/18 10/19/18 15:35 16:49 16:50 17:00 Pulse 94 94 80 Resp 24 B/P (MAP) 152/69 152/69 140/85 (103) Pulse Ox 90 90 O2 Delivery Venturi Mask Venturi Mask O2 Flow Rate 15.0 10/19/18 10/19/18 10/19/18 10/19/18 18:00 19:00 20:00 20:01 Temp 99.0 99.0 Pulse 84 79 72 Resp 24 24 24 B/P (MAP) 120/57 (78) 113/62 (79) 138/61 (86) Pulse Ox 90 92 92 92 O2 Delivery Venturi Mask Venturi Mask Venturi Mask Venturi Mask O2 Flow Rate 15.0 10/19/18 10/19/18 10/19/18 10/19/18 20:03 20:32 21:00 22:00 Pulse 70 73 68 Resp 24 B/P (MAP) 138/61 127/53 (77) 144/71 (95) Pulse Ox 94 91 O2 Delivery Venturi Mask Venturi Mask Venturi Mask 10/19/18 10/19/18 10/19/18 10/20/18 23:00 23:04 23:38 00:00 Temp 98.6 98.6 Pulse 63 63 58 Resp 20 20 B/P (MAP) 111/58 (75) 111/58 119/48 (71) Pulse Ox 93 92 93 O2 Delivery Venturi Mask Venturi Mask Venturi Mask O2 Flow Rate 15.0 10/20/18 10/20/18 10/20/18 10/20/18 00:15 01:00 02:00 03:00 Pulse 66 64 68 Resp 18 20 18 B/P (MAP) 120/53 (75) 116/52 (73) 133/57 (82) Pulse Ox 95 92 91 O2 Delivery Venturi Mask Venturi Mask Venturi Mask Venturi Mask 10/20/18 10/20/18 10/20/18 10/20/18 03:15 03:54 04:00 05:00 Temp 98.9 98.9 Pulse 80 79 Resp 18 14 B/P (MAP) 158/62 (94) 171/64 (99) Pulse Ox 91 89 93 O2 Delivery Venturi Mask Venturi Mask Venturi Mask NonRebreather Mask O2 Flow Rate 15.0 10/20/18 10/20/18 10/20/18 10/20/18 05:45 06:00 07:00 08:00 Pulse 73 74 68 Resp 16 20 B/P (MAP) 171/64 149/71 (97) 141/58 (85) Pulse Ox 94 97 O2 Delivery NonRebreather Mask NonRebreather Mask Venturi Mask 10/20/18 10/20/18 10/20/18 10/20/18 08:00 08:15 08:55 09:00 Temp 97.9 97.9 Pulse 78 74 Resp 22 16 20 B/P (MAP) 141/62 (88) 152/65 (94) Pulse Ox 81 91 92 94 O2 Delivery Nasal Cannula NonRebreather Mask Venturi Mask NonRebreather Mask O2 Flow Rate 5.0 15.0 10/20/18 10/20/18 10/20/18 10/20/18 09:33 10:04 11:09 12:00 Pulse 71 71 55 B/P (MAP) 141/62 132/59 (83) 142/62 (88) Pulse Ox 94 92 O2 Delivery NonRebreather Mask NonRebreather Mask Nasal Cannula O2 Flow Rate 6.0 10/20/18 10/20/18 12:00 13:06 Temp 98.0 98.0 Pulse 64 Resp 22 B/P (MAP) 153/80 (104) Pulse Ox 93 93 O2 Delivery Nasal Cannula Venturi Mask O2 Flow Rate 5.0 15.0 Intake and Output 10/19/18 10/19/18 10/20/18 15:00 23:00 07:00 Intake Total 180 ml 534 ml Output Total 900 ml 325 ml Balance -720 ml 209 ml JOSE PEREZ MD October 20, 2018 13:24
[2018-10-20] MEDS: FUROSEMIDE 40 MG/4 ML VIAL. IVP SCH ×2 (16:29→21:34)
--- NOTE | 2018-10-20 18:13 | NUR ---
1700 IV Lasix. Urinary hesitancy. [place] cath placed to alleviate /joanne problems after IV med. No output noted at this time. Denies Urge. Able to remain on 5LNC since lunch time. Repetitious conversation on going home w "probable Monday" discharge reported by Dr Armenta.
[2018-10-20] MEDS: ATORVASTATIN CALCIUM 40 MG TABLET. PO SCH (21:33)
[2018-10-21] VITALS (16 sets, daily range): BP systolic 120–205; BP diastolic 62–91
[2018-10-21] MEDS: NITROGLYCERIN OINT 1 GM PACKET. TP SCH ×5 (00:19→23:22)
[2018-10-21] MEDS: HEPARIN 25,000UTS/500ML PREMIX 500 ML IV PRN (00:21)
[2018-10-21] MEDS: IPRATRPIUM/ALBUTEROL 0.5/2.5MG 3 ML NEBU. NEB SCH ×7 (04:14→23:42)
[2018-10-21 05:01] LABS: CALCIUM 8.4 mg/dL (8.5-10.1); CREATININE 3.3 mg/dL (0.7-1.3); GFR 18.2; MAGNESIUM 1.6 mg/dL (1.8-2.4); POTASSIUM 4.1 mmol/L (3.5-5.1)
[2018-10-21] MEDS: FUROSEMIDE 40 MG/4 ML VIAL. IVP SCH ×2 (06:22→14:00)
--- NOTE | 2018-10-21 06:29 | NUR ---
Took over care of patient around 0200. Agree with previous assessment. Patient wanted me to look at Right shoulder. Profuse bruising noted, PIV in upper arm patent, flushes and draws back blood. UFH in therapeutic range.
[2018-10-21] MEDS: ANTI-COAG MONITOR BY PHARMACY. MC PRN (09:18)
[2018-10-21] MEDS: ASPIRIN ENTERIC COATED 81 MG TABLET.DR. PO SCH (09:26)
[2018-10-21] MEDS: METOPROLOL TART IMMED RELEASE 25 MG TABLET. PO SCH ×2 (09:27→21:43)
[2018-10-21] MEDS: INSULIN LISPRO 300 UNITS/3 ML INSULN.PEN. SQ SCH ×3 (09:37→17:17)
--- NOTE | 2018-10-21 10:35 | PDOC ---
PULMONARY PROGRESS NOTES Subjective no soa Vitals Vital Signs Date Time Temp Pulse Resp B/P (MAP) Pulse Ox O2 Delivery O2 Flow Rate FiO2 10/21/18 09:27 67 134/62 10/21/18 08:22 98 Nasal Cannula 4.0 10/21/18 06:00 18 10/21/18 04:00 98.6 98.6 General: Alert, No acute distress Lungs: Clear Cardiovascular: S1 Abdomen: Soft Neuro Exam: Alert Extremities: Other (1+edema) Labs Laboratory Tests Test 10/19/18 11:40 10/19/18 11:55 10/19/18 15:45 10/19/18 16:35 White Blood Count 11.0 x10^3/uL (4.0-11.0) Red Blood Count 4.25 x10^6/uL (4.30-5.70) Hemoglobin 12.2 g/dL (13.0-17.5) Hematocrit 37.4 % (39.0-53.0) Mean Corpuscular Volume 88 fL (79-100) Mean Corpuscular Hemoglobin 29 pg (25-35) Mean Corpuscular Hemoglobin Concent 33 g/dL (31-37) Red Cell Distribution Width 13.8 % (11.5-14.5) Platelet Count 310 x10^3/uL (140-400) Neutrophils (%) (Auto) 82 % (31-73) Lymphocytes (%) (Auto) 10 % (24-48) Monocytes (%) (Auto) 7 % (0-9) Eosinophils (%) (Auto) 0 % (0-3) Basophils (%) (Auto) 1 % (0-3) Neutrophils # (Auto) 9.0 x10^3uL (1.8-7.7) Lymphocytes # (Auto) 1.1 x10^3/uL (1.0-4.8) Monocytes # (Auto) 0.8 x10^3/uL (0.0-1.1) Eosinophils # (Auto) 0.0 x10^3/uL (0.0-0.7) Basophils # (Auto) 0.1 x10^3/uL (0.0-0.2) D-Dimer (Rashmi) 0.83 ug/mlFEU (0.00-0.50) Sodium Level 139 mmol/L (136-145) Potassium Level 4.3 mmol/L (3.5-5.1) Chloride Level 103 mmol/L (98-107) Carbon Dioxide Level 25 mmol/L (21-32) Anion Gap 11 (6-14) Blood Urea Nitrogen 55 mg/dL (8-26) Creatinine 2.8 mg/dL (0.7-1.3) Estimated GFR (Cockcroft-Gault) 22.0 BUN/Creatinine Ratio 20 (6-20) Glucose Level 179 mg/dL (70-99) Calcium Level 8.9 mg/dL (8.5-10.1) Total Bilirubin 0.4 mg/dL (0.2-1.0) Aspartate Amino Transf (AST/SGOT) 20 U/L (15-37) Alanine Aminotransferase (ALT/SGPT) 19 U/L (16-63) Alkaline Phosphatase 73 U/L (46-116) Troponin I Quantitative 0.739 ng/mL (0.000-0.055) 1.204 ng/mL (0.000-0.055) FW-Nec-O-Type Natriuretic Peptide 09881 pg/mL (0-449) Total Protein 7.2 g/dL (6.4-8.2) Albumin 2.7 g/dL (3.4-5.0) Albumin/Globulin Ratio 0.6 (1.0-1.7) Triglycerides Level 123 mg/dL (0-150) Cholesterol Level 177 mg/dL (0-200) LDL Cholesterol, Calculated 104 mg/dL (0-100) VLDL Cholesterol, Calculated 25 mg/dL (0-40) Non-HDL Cholesterol Calculated 129 mg/dL (0-129) HDL Cholesterol 48 mg/dL (40-60) Cholesterol/HDL Ratio 3.7 Influenza Type A Antigen Negative (NEGATIVE) Influenza Type B Antigen Negative (NEGATIVE) O2 Saturation 88 % (92-99) Arterial Blood pH 7.33 (7.35-7.45) Arterial Blood pCO2 at Patient Temp 45 mmHg (35-46) Arterial Blood pO2 at Patient Temp 58 mmHg (65-108) Arterial Blood HCO3 24 mmol/L (21-28) Arterial Blood Base Excess -3 mmol/L (-3-3) FiO2 50 Urine Collection Type Void Urine Color Yellow Urine Clarity Clear Urine pH 5.0 Urine Specific [place] 1.015 Urine Protein >=300 mg/dL (NEG-TRACE) Urine Glucose (UA) 100 mg/dL (NEG) Urine Ketones (Stick) Negative mg/dL (NEG) Urine Blood Moderate (NEG) Urine Nitrite Negative (NEG) Urine Bilirubin Negative (NEG) Urine Urobilinogen Dipstick 0.2 mg/dL (0.2 mg/dL) Urine Leukocyte Esterase Negative (NEG) Urine RBC 1-2 /HPF (0-2) Urine WBC Rare /HPF (0-4) Urine Squamous Epithelial Cells None /LPF Urine Bacteria Few /HPF (0-FEW) Urine Hyaline Casts Few /HPF Urine Mucus Mod /LPF Test 10/19/18 18:05 10/19/18 19:30 10/20/18 03:00 10/20/18 11:20 Glucose (Fingerstick) 129 mg/dL (70-99) Heparin Anti-Xa Act, Unfractionated < 0.10 IU/mL (0.30-0.70) 0.21 IU/mL (0.30-0.70) 0.32 IU/mL (0.30-0.70) Troponin I Quantitative 1.442 ng/mL (0.000-0.055) 1.612 ng/mL (0.000-0.055) 1.218 ng/mL (0.000-0.055) White Blood Count 7.9 x10^3/uL (4.0-11.0) Red Blood Count 3.55 x10^6/uL (4.30-5.70) Hemoglobin 10.2 g/dL (13.0-17.5) Hematocrit 31.3 % (39.0-53.0) Mean Corpuscular Volume 88 fL (79-100) Mean Corpuscular Hemoglobin 29 pg (25-35) Mean Corpuscular Hemoglobin Concent 33 g/dL (31-37) Red Cell Distribution Width 14.0 % (11.5-14.5) Platelet Count 253 x10^3/uL (140-400) Neutrophils (%) (Auto) 62 % (31-73) Lymphocytes (%) (Auto) 24 % (24-48) Monocytes (%) (Auto) 11 % (0-9) Eosinophils (%) (Auto) 2 % (0-3) Basophils (%) (Auto) 1 % (0-3) Neutrophils # (Auto) 4.9 x10^3uL (1.8-7.7) Lymphocytes # (Auto) 1.9 x10^3/uL (1.0-4.8) Monocytes # (Auto) 0.8 x10^3/uL (0.0-1.1) Eosinophils # (Auto) 0.2 x10^3/uL (0.0-0.7) Basophils # (Auto) 0.1 x10^3/uL (0.0-0.2) Sodium Level 141 mmol/L (136-145) Potassium Level 3.8 mmol/L (3.5-5.1) Chloride Level 104 mmol/L (98-107) Carbon Dioxide Level 27 mmol/L (21-32) Anion Gap 10 (6-14) Blood Urea Nitrogen 58 mg/dL (8-26) Creatinine 3.0 mg/dL (0.7-1.3) Estimated GFR (Cockcroft-Gault) 20.3 BUN/Creatinine Ratio 19 (6-20) Glucose Level 147 mg/dL (70-99) Calcium Level 7.9 mg/dL (8.5-10.1) Total Bilirubin 0.3 mg/dL (0.2-1.0) Aspartate Amino Transf (AST/SGOT) 23 U/L (15-37) Alanine Aminotransferase (ALT/SGPT) 18 U/L (16-63) Alkaline Phosphatase 61 U/L (46-116) Total Protein 5.0 g/dL (6.4-8.2) Albumin 2.2 g/dL (3.4-5.0) Albumin/Globulin Ratio 0.8 (1.0-1.7) Test 10/20/18 15:13 10/20/18 17:20 10/21/18 03:15 10/21/18 10:00 Glucose (Fingerstick) 168 mg/dL (70-99) Heparin Anti-Xa Act, Unfractionated 0.26 IU/mL (0.30-0.70) 0.50 IU/mL (0.30-0.70) 0.64 IU/mL (0.30-0.70) Sodium Level 137 mmol/L (136-145) Potassium Level 4.1 mmol/L (3.5-5.1) Chloride Level 100 mmol/L (98-107) Carbon Dioxide Level 27 mmol/L (21-32) Anion Gap 10 (6-14) Blood Urea Nitrogen 65 mg/dL (8-26) Creatinine 3.3 mg/dL (0.7-1.3) Estimated GFR (Cockcroft-Gault) 18.2 Glucose Level 204 mg/dL (70-99) Calcium Level 8.4 mg/dL (8.5-10.1) Magnesium Level 1.6 mg/dL (1.8-2.4) Laboratory Tests Test 10/20/18 11:20 10/20/18 15:13 10/20/18 17:20 10/21/18 03:15 Heparin Anti-Xa Act, Unfractionated 0.32 IU/mL (0.30-0.70) 0.26 IU/mL (0.30-0.70) 0.50 IU/mL (0.30-0.70) Troponin I Quantitative 1.218 ng/mL (0.000-0.055) Glucose (Fingerstick) 168 mg/dL (70-99) Sodium Level 137 mmol/L (136-145) Potassium Level 4.1 mmol/L (3.5-5.1) Chloride Level 100 mmol/L (98-107) Carbon Dioxide Level 27 mmol/L (21-32) Anion Gap 10 (6-14) Blood Urea Nitrogen 65 mg/dL (8-26) Creatinine 3.3 mg/dL (0.7-1.3) Estimated GFR (Cockcroft-Gault) 18.2 Glucose Level 204 mg/dL (70-99) Calcium Level 8.4 mg/dL (8.5-10.1) Magnesium Level 1.6 mg/dL (1.8-2.4) Test 10/21/18 10:00 Heparin Anti-Xa Act, Unfractionated 0.64 IU/mL (0.30-0.70) Medications Active Scripts Medications Dose Route/Sig Max Daily Dose Days Date Category Metoprolol Tartrate 25 Mg Tablet 12.5 Mg PO QHS 10/19/18 Reported Fish Oil 1,000 mg Softgel (Presho-3S/Dha/Epa/Fish Oil) 1 Each Capsule 1 Each PO 10/19/18 Reported [place] (Patiromer Calcium Sorbitex) 8.4 Gm Powd.pack 8.4 Gm PO DAILY 10/19/18 Reported Vitamin D-3 (Cholecalciferol (Vitamin D3)) 2,000 Unit Tablet 5,000 Unit PO DAILY 10/19/18 Reported Aspirin 325 Mg Tablet 1 Tab PO DAILY 10/19/18 Reported Amlodipine Besylate 5 Mg Tablet 5 Mg PO DAILY 10/19/18 Reported Metoprolol Tartrate 25 Mg Tablet 1 Tab PO DAILY 10/19/18 Reported Atorvastatin Calcium 40 Mg Tablet 1 Tab PO QHS 10/19/18 Reported Basaglar Heshamikpen U-100 (Insulin Glargine,Hum.rec.anlog) 100 Unit/1 Ml Insuln.pen 35 Unit SQ DAILY 10/19/18 Reported Lisinopril 20 Mg Tablet 40 Mg PO DAILY 06/03/13 Reported Impression . 1. Acute hypoxic respiratory failure secondary to suspected [id number] diastolic heart failure and bilateral pleural effusions. Clinically, less likely thromboembolic disease. His venous Dopplers of the lower extremities were negative for DVT. Could not lay flat for V/Q 2. History of coronary artery disease, 3-vessel disease with percutaneous coronary intervention of circumflex in the past and now with a non-ST myocardial infarction. 3. Suspected obstructive sleep apnea. He should benefit from sleep study as an outpatient. 4. Chronic kidney disease, which makes it difficult to diurese. Plan . 1. Continue with present canula 2. hold diuresis with a close followup on the renal function. 3. If effusions do not improve, then consider thoracentesis. 4. Bronchodilators. 5. Follow Cardiology recommendations. 6. Discussed with RN/ BEA WHITESIDE MD October 21, 2018 10:35
--- NOTE | 2018-10-21 10:52 | PDOC ---
PROGRESS NOTES Chief Complaint Chief Complaint NSTEMI (non-ST elevated myocardial infarction) CHF (congestive heart failure) Acute on chronic renal insufficiency - likely vasomotor vs cardiorenal MORBID OBESITY REMOTE TOBACCO ABUSE HYPERLIPIDEMIA HTN PROB DEE DEE BPH Acute hypoxic respiratory failure - 2/2 [id number] diastolic heart failure and bilateral pleural effusions Coronary artery disease s/p 3-vessel disease with percutaneous coronary intervention of circumflex in the past History of Present Illness History of Present Illness Mr Wiggins is a 78 yo M w/ PMHx AFib, CAD s/p MICHELLE, HTN, HLD, BPH, DM2 who was admitted for complains of shortness of breath. In the last 3 days he has been feeling more weak. Negative for orthopnea or PND and no wheezing and no chest pain. He is positive for DEL ANGEL in the last 3 days and noted with hypoxia upon admission in ED. 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 He has been complaint with his medications and his BG and BP has been controlled per his spouse. No jaw tightness, arm heaviness and no frequent dizziness. 10/20: US negative for LE DVTs. CT shows bilateral pleural effusions and UOP was 1200cc overnight. Still on NRB for low O2. Troponin trended downward. He feels a bit better. No CP. Still short of breath. Has not been out of bed. PVR elevated, faye ordered. Plan: Back off on diuresis per nephro F/u cardiology, pulmonology, and nephrology Ok for CVC Vitals Vitals Vital Signs Date Time Temp Pulse Resp B/P (MAP) Pulse Ox O2 Delivery O2 Flow Rate FiO2 10/21/18 09:27 67 134/62 10/21/18 08:22 98 Nasal Cannula 4.0 10/21/18 06:00 18 10/21/18 04:00 98.6 98.6 Physical Exam General: Alert, Cooperative, mild distress Heart: Regular rate Lungs: Clear Abdomen: Normal bowel sounds Extremities: No clubbing Skin: No breakdown Labs LABS Laboratory Tests Test 10/20/18 11:20 10/20/18 15:13 10/20/18 17:20 10/21/18 03:15 Heparin Anti-Xa Act, Unfractionated 0.32 IU/mL (0.30-0.70) 0.26 IU/mL (0.30-0.70) 0.50 IU/mL (0.30-0.70) Troponin I Quantitative 1.218 ng/mL (0.000-0.055) Glucose (Fingerstick) 168 mg/dL (70-99) Sodium Level 137 mmol/L (136-145) Potassium Level 4.1 mmol/L (3.5-5.1) Chloride Level 100 mmol/L (98-107) Carbon Dioxide Level 27 mmol/L (21-32) Anion Gap 10 (6-14) Blood Urea Nitrogen 65 mg/dL (8-26) Creatinine 3.3 mg/dL (0.7-1.3) Estimated GFR (Cockcroft-Gault) 18.2 Glucose Level 204 mg/dL (70-99) Calcium Level 8.4 mg/dL (8.5-10.1) Magnesium Level 1.6 mg/dL (1.8-2.4) Test 10/21/18 10:00 Heparin Anti-Xa Act, Unfractionated 0.64 IU/mL (0.30-0.70) Assessment and Plan Assessmemt and Plan Problems Medical Problems: (1) Acute on chronic renal insufficiency Status: Acute (2) CHF (congestive heart failure) Status: Acute (3) Hypoxemia Status: Acute (4) NSTEMI (non-ST elevated myocardial infarction) Status: Acute Comment Review of Relevant I have reviewed the following items kristin (where applicable) has been applied. Labs Laboratory Tests Test 10/19/18 11:40 10/19/18 11:55 10/19/18 15:45 10/19/18 16:35 White Blood Count 11.0 x10^3/uL (4.0-11.0) Red Blood Count 4.25 x10^6/uL (4.30-5.70) Hemoglobin 12.2 g/dL (13.0-17.5) Hematocrit 37.4 % (39.0-53.0) Mean Corpuscular Volume 88 fL (79-100) Mean Corpuscular Hemoglobin 29 pg (25-35) Mean Corpuscular Hemoglobin Concent 33 g/dL (31-37) Red Cell Distribution Width 13.8 % (11.5-14.5) Platelet Count 310 x10^3/uL (140-400) Neutrophils (%) (Auto) 82 % (31-73) Lymphocytes (%) (Auto) 10 % (24-48) Monocytes (%) (Auto) 7 % (0-9) Eosinophils (%) (Auto) 0 % (0-3) Basophils (%) (Auto) 1 % (0-3) Neutrophils # (Auto) 9.0 x10^3uL (1.8-7.7) Lymphocytes # (Auto) 1.1 x10^3/uL (1.0-4.8) Monocytes # (Auto) 0.8 x10^3/uL (0.0-1.1) Eosinophils # (Auto) 0.0 x10^3/uL (0.0-0.7) Basophils # (Auto) 0.1 x10^3/uL (0.0-0.2) D-Dimer (Rashmi) 0.83 ug/mlFEU (0.00-0.50) Sodium Level 139 mmol/L (136-145) Potassium Level 4.3 mmol/L (3.5-5.1) Chloride Level 103 mmol/L (98-107) Carbon Dioxide Level 25 mmol/L (21-32) Anion Gap 11 (6-14) Blood Urea Nitrogen 55 mg/dL (8-26) Creatinine 2.8 mg/dL (0.7-1.3) Estimated GFR (Cockcroft-Gault) 22.0 BUN/Creatinine Ratio 20 (6-20) Glucose Level 179 mg/dL (70-99) Calcium Level 8.9 mg/dL (8.5-10.1) Total Bilirubin 0.4 mg/dL (0.2-1.0) Aspartate Amino Transf (AST/SGOT) 20 U/L (15-37) Alanine Aminotransferase (ALT/SGPT) 19 U/L (16-63) Alkaline Phosphatase 73 U/L (46-116) Troponin I Quantitative 0.739 ng/mL (0.000-0.055) 1.204 ng/mL (0.000-0.055) NU-Ebk-Y-Type Natriuretic Peptide 89586 pg/mL (0-449) Total Protein 7.2 g/dL (6.4-8.2) Albumin 2.7 g/dL (3.4-5.0) Albumin/Globulin Ratio 0.6 (1.0-1.7) Triglycerides Level 123 mg/dL (0-150) Cholesterol Level 177 mg/dL (0-200) LDL Cholesterol, Calculated 104 mg/dL (0-100) VLDL Cholesterol, Calculated 25 mg/dL (0-40) Non-HDL Cholesterol Calculated 129 mg/dL (0-129) HDL Cholesterol 48 mg/dL (40-60) Cholesterol/HDL Ratio 3.7 Influenza Type A Antigen Negative (NEGATIVE) Influenza Type B Antigen Negative (NEGATIVE) O2 Saturation 88 % (92-99) Arterial Blood pH 7.33 (7.35-7.45) Arterial Blood pCO2 at Patient Temp 45 mmHg (35-46) Arterial Blood pO2 at Patient Temp 58 mmHg (65-108) Arterial Blood HCO3 24 mmol/L (21-28) Arterial Blood Base Excess -3 mmol/L (-3-3) FiO2 50 Urine Collection Type Void Urine Color Yellow Urine Clarity Clear Urine pH 5.0 Urine Specific [place] 1.015 Urine Protein >=300 mg/dL (NEG-TRACE) Urine Glucose (UA) 100 mg/dL (NEG) Urine Ketones (Stick) Negative mg/dL (NEG) Urine Blood Moderate (NEG) Urine Nitrite Negative (NEG) Urine Bilirubin Negative (NEG) Urine Urobilinogen Dipstick 0.2 mg/dL (0.2 mg/dL) Urine Leukocyte Esterase Negative (NEG) Urine RBC 1-2 /HPF (0-2) Urine WBC Rare /HPF (0-4) Urine Squamous Epithelial Cells None /LPF Urine Bacteria Few /HPF (0-FEW) Urine Hyaline Casts Few /HPF Urine Mucus Mod /LPF Test 10/19/18 18:05 10/19/18 19:30 10/20/18 03:00 10/20/18 11:20 Glucose (Fingerstick) 129 mg/dL (70-99) Heparin Anti-Xa Act, Unfractionated < 0.10 IU/mL (0.30-0.70) 0.21 IU/mL (0.30-0.70) 0.32 IU/mL (0.30-0.70) Troponin I Quantitative 1.442 ng/mL (0.000-0.055) 1.612 ng/mL (0.000-0.055) 1.218 ng/mL (0.000-0.055) White Blood Count 7.9 x10^3/uL (4.0-11.0) Red Blood Count 3.55 x10^6/uL (4.30-5.70) Hemoglobin 10.2 g/dL (13.0-17.5) Hematocrit 31.3 % (39.0-53.0) Mean Corpuscular Volume 88 fL (79-100) Mean Corpuscular Hemoglobin 29 pg (25-35) Mean Corpuscular Hemoglobin Concent 33 g/dL (31-37) Red Cell Distribution Width 14.0 % (11.5-14.5) Platelet Count 253 x10^3/uL (140-400) Neutrophils (%) (Auto) 62 % (31-73) Lymphocytes (%) (Auto) 24 % (24-48) Monocytes (%) (Auto) 11 % (0-9) Eosinophils (%) (Auto) 2 % (0-3) Basophils (%) (Auto) 1 % (0-3) Neutrophils # (Auto) 4.9 x10^3uL (1.8-7.7) Lymphocytes # (Auto) 1.9 x10^3/uL (1.0-4.8) Monocytes # (Auto) 0.8 x10^3/uL (0.0-1.1) Eosinophils # (Auto) 0.2 x10^3/uL (0.0-0.7) Basophils # (Auto) 0.1 x10^3/uL (0.0-0.2) Sodium Level 141 mmol/L (136-145) Potassium Level 3.8 mmol/L (3.5-5.1) Chloride Level 104 mmol/L (98-107) Carbon Dioxide Level 27 mmol/L (21-32) Anion Gap 10 (6-14) Blood Urea Nitrogen 58 mg/dL (8-26) Creatinine 3.0 mg/dL (0.7-1.3) Estimated GFR (Cockcroft-Gault) 20.3 BUN/Creatinine Ratio 19 (6-20) Glucose Level 147 mg/dL (70-99) Calcium Level 7.9 mg/dL (8.5-10.1) Total Bilirubin 0.3 mg/dL (0.2-1.0) Aspartate Amino Transf (AST/SGOT) 23 U/L (15-37) Alanine Aminotransferase (ALT/SGPT) 18 U/L (16-63) Alkaline Phosphatase 61 U/L (46-116) Total Protein 5.0 g/dL (6.4-8.2) Albumin 2.2 g/dL (3.4-5.0) Albumin/Globulin Ratio 0.8 (1.0-1.7) Test 10/20/18 15:13 10/20/18 17:20 10/21/18 03:15 10/21/18 10:00 Glucose (Fingerstick) 168 mg/dL (70-99) Heparin Anti-Xa Act, Unfractionated 0.26 IU/mL (0.30-0.70) 0.50 IU/mL (0.30-0.70) 0.64 IU/mL (0.30-0.70) Sodium Level 137 mmol/L (136-145) Potassium Level 4.1 mmol/L (3.5-5.1) Chloride Level 100 mmol/L (98-107) Carbon Dioxide Level 27 mmol/L (21-32) Anion Gap 10 (6-14) Blood Urea Nitrogen 65 mg/dL (8-26) Creatinine 3.3 mg/dL (0.7-1.3) Estimated GFR (Cockcroft-Gault) 18.2 Glucose Level 204 mg/dL (70-99) Calcium Level 8.4 mg/dL (8.5-10.1) Magnesium Level 1.6 mg/dL (1.8-2.4) Laboratory Tests Test 10/20/18 11:20 10/20/18 15:13 10/20/18 17:20 10/21/18 03:15 Heparin Anti-Xa Act, Unfractionated 0.32 IU/mL (0.30-0.70) 0.26 IU/mL (0.30-0.70) 0.50 IU/mL (0.30-0.70) Troponin I Quantitative 1.218 ng/mL (0.000-0.055) Glucose (Fingerstick) 168 mg/dL (70-99) Sodium Level 137 mmol/L (136-145) Potassium Level 4.1 mmol/L (3.5-5.1) Chloride Level 100 mmol/L (98-107) Carbon Dioxide Level 27 mmol/L (21-32) Anion Gap 10 (6-14) Blood Urea Nitrogen 65 mg/dL (8-26) Creatinine 3.3 mg/dL (0.7-1.3) Estimated GFR (Cockcroft-Gault) 18.2 Glucose Level 204 mg/dL (70-99) Calcium Level 8.4 mg/dL (8.5-10.1) Magnesium Level 1.6 mg/dL (1.8-2.4) Test 10/21/18 10:00 Heparin Anti-Xa Act, Unfractionated 0.64 IU/mL (0.30-0.70) Medications Current Medications Albuterol/ Ipratropium (Duoneb) 3 ml 1X ONCE NEB Last administered on 10/19/18at 12:00; Start 10/19/18 at 11:45; Stop 10/19/18 at 11:46; Status DC Heparin Sodium (Porcine) (Heparin Sodium) 4,000 unit 1X ONCE IV Last administered on 10/19/18at 12:29; Start 10/19/18 at 12:30; Stop 10/19/18 at 12:31; Status DC Heparin Sodium/ Dextrose 500 ml @ 0 mls/hr CONT PRN IV SEE I/O RECORD Last administered on 10/21/18at 00:21; Start 10/19/18 at 12:30 Heparin Sodium (Porcine) (Heparin Sodium) 3,000 unit PRN Q6HRS PRN IV FOR UFH LEVEL LESS THAN 0.2 Last administered on 10/19/18 20:34; Start 10/19/18 at 12:30 Info (Anti-Coagulation Monitoring By Pharmacy) 1 each PRN DAILY PRN MC SEE CO MMENTS Last administered on 10/21/18at 09:18; Start 10/19/18 at 12:30 Furosemide (Lasix) 60 mg 1X ONCE IVP Last administered on 10/19/18at 13:00; Start 10/19/18 at 13:00; Stop 10/19/18 at 13:01; Status DC Ondansetron HCl (Zofran) 4 mg PRN Q8HRS PRN IV NAUSEA/VOMITING; Start 10/19/18 at 13:30; Stop 10/20/18 at 13:29; Status DC Morphine Sulfate (Morphine Sulfate) 2 mg PRN Q2HR PRN IV PAIN; Start 10/19/18 at 13:30; Stop 10/20/18 at 13:29; Status DC Nitroglycerin (Nitrostat) 0.4 mg PRN Q5MIN PRN SL CHEST PAIN; Start 10/19/18 at 13:30; Stop 10/20/18 at 13:29; Status DC Albuterol/ Ipratropium (Duoneb) 3 ml RTQID NEB ; Start 10/19/18 at 16:00; Stop 10/19/18 at 16:00; Status DC Amlodipine Besylate (Norvasc) 5 mg 1X ONCE PO Last administered on 10/19/18at 13:53; Start 10/19/18 at 13:30; Stop 10/19/18 at 13:31; Status DC Nitroglycerin (Nitro-Bid Oint) 0.5 inch Q6HRS TP Last administered on 10/21/18at 06:21; Start 10/19/18 at 14:00 Aspirin (Ecotrin) 81 mg DAILYWBKFT PO Last administered on 10/21/18at 09:26; Start 10/19/18 at 14:00 Metoprolol Tartrate (Lopressor) 25 mg BID PO Last administered on 10/21/18at 09:27; Start 10/19/18 at 14:00 Atorvastatin Calcium (Lipitor) 40 mg QHS PO Last administered on 10/20/18at 21:33; Start 10/19/18 at 21:00 Sodium Chloride (Normal Saline Flush 3ml) 3 ml QSHIFT PRN IV AFTER MEDS AND BLOOD DRAWS; Start 10/19/18 at 15:15 Ondansetron HCl (Zofran) 4 mg PRN Q4HRS PRN IV NAUSEA/VOMITING; Start 10/19/18 at 15:15 Acetaminophen (Tylenol) 650 mg PRN Q4HRS PRN PO TEMP OVER 100.4F OR MILD PAIN; Start 10/19/18 at 15:15 Al Hydroxide/Mg Hydroxide (Mylanta Plus Xs) 30 ml PRN DAILY PRN PO HEARTBURN / GAS; Start 10/19/18 at 15:15 Clonidine HCl (Catapres) 0.1 mg PRN Q6HRS PRN PO SBP>160 OR DBP>90; Start 10/19/18 at 15:15 Docusate Sodium (Colace) 100 mg PRN BID PRN PO CONSTIPATION; Start 10/19/18 at 15:15 Albuterol/ Ipratropium (Duoneb) 3 ml Q4HRS NEB Last administered on 10/21/18at 08:20; Start 10/19/18 at 16:00 Guaifenesin (Robitussin) 200 mg PRN Q4HRS PRN PO COUGH; Start 10/19/18 at 15:15 Enoxaparin Sodium (Lovenox 40mg Syringe) 40 mg DAILY SQ ; Start 10/20/18 at 09:00; Stop 10/20/18 at 09:00; Status DC Sodium Bicarbonate (Sodium Bicarb Adult 8.4% Syr) 50 meq 1X ONCE IV Last administered on 10/19/18at 16:42; Start 10/19/18 at 16:30; Stop 10/19/18 at 16:33; Status DC Insulin Human Lispro (HumaLOG) 0-7 UNITS TIDWMEALS SQ Last administered on 10/21/18at 09:37; Start 10/19/18 at 18:00 Dextrose (Dextrose 50%-Water Syringe) 12.5 gm PRN Q15MIN PRN IV SEE COMMENTS; Start 10/19/18 at 18:00 Furosemide (Lasix) 40 mg Q8HRS IVP Last administered on 10/21/18at 06:22; Start 10/20/18 at 14:00 Active Scripts Active Reported Metoprolol Tartrate 25 Mg Tablet 12.5 Mg PO QHS Fish Oil 1,000 mg Softgel ([place]-3S/Dha/Epa/Fish Oil) 1 Each Capsule 1 Each PO V[place] (Patiromer Calcium Sorbitex) 8.4 Gm Powd.pack 8.4 Gm PO DAILY Vitamin D-3 (Cholecalciferol (Vitamin D3)) 2,000 Unit Tablet 5,000 Unit PO DAILY Aspirin 325 Mg Tablet 1 Tab PO DAILY Amlodipine Besylate 5 Mg Tablet 5 Mg PO DAILY Metoprolol Tartrate 25 Mg Tablet 1 Tab PO DAILY Atorvastatin Calcium 40 Mg Tablet 1 Tab PO QHS Basaglar Kwikpen U-100 (Insulin Glargine,Hum.rec.anlog) 100 Unit/1 Ml Insuln.pen 35 Unit SQ DAILY Lisinopril 20 Mg Tablet 40 Mg PO DAILY Vitals/I & O Vital Sign - Last 24 Hours 10/20/18 10/20/18 10/20/18 10/20/18 11:09 12:00 12:00 13:00 Temp 98.0 98.0 Pulse 55 64 64 Resp 22 25 B/P (MAP) 142/62 (88) 153/80 (104) 153/71 (98) Pulse Ox 92 93 92 O2 Delivery NonRebreather Mask Nasal Cannula Nasal Cannula Nasal Cannula O2 Flow Rate 6.0 5.0 5.0 10/20/18 10/20/18 10/20/18 10/20/18 13:06 15:00 16:00 16:00 Temp 98.7 98.7 Pulse 56 64 Resp 20 17 B/P (MAP) 150/66 (94) 170/72 (104) Pulse Ox 93 95 95 O2 Delivery Venturi Mask Nasal Cannula Nasal Cannula Nasal Cannula O2 Flow Rate 15.0 5.0 6.0 5.0 10/20/18 10/20/18 10/20/18 10/20/18 16:32 16:57 17:00 18:00 Pulse 66 58 78 Resp 11 23 B/P (MAP) 155/78 163/69 (100) 182/82 (115) Pulse Ox 94 96 95 O2 Delivery Nasal Cannula Nasal Cannula Nasal Cannula O2 Flow Rate 4.0 5.0 5.0 10/20/18 10/20/18 10/20/18 10/20/18 18:43 19:00 20:00 20:00 Temp 98.2 98.2 Pulse 78 62 64 Resp 17 21 B/P (MAP) 182/82 156/67 (96) 121/70 (87) Pulse Ox 95 93 O2 Delivery Nasal Cannula Nasal Cannula Nasal Cannula O2 Flow Rate 5.0 5.0 5.0 10/20/18 10/20/18 10/20/18 10/20/18 20:00 21:00 21:34 22:00 Pulse 67 73 73 Resp 20 10 B/P (MAP) 156/60 (92) 156/60 148/65 (92) Pulse Ox 94 93 93 O2 Delivery Nasal Cannula Nasal Cannula Nasal Cannula O2 Flow Rate 4.0 5.0 5.0 10/20/18 10/21/18 10/21/18 10/21/18 23:00 00:00 00:00 00:19 Temp 98.7 98.7 Pulse 79 80 72 Resp 21 23 B/P (MAP) 151/68 (95) 164/65 (98) 164/65 Pulse Ox 95 94 O2 Delivery Nasal Cannula Nasal Cannula Nasal Cannula O2 Flow Rate 5.0 5.0 5.0 10/21/18 10/21/18 10/21/18 10/21/18 00:27 01:00 02:00 03:00 Pulse 69 59 61 Resp 16 18 18 B/P (MAP) 120/65 (83) 170/68 (102) 175/71 (105) Pulse Ox 94 94 94 92 O2 Delivery Nasal Cannula Nasal Cannula Nasal Cannula Nasal Cannula O2 Flow Rate 4.0 5.0 5.0 5.0 10/21/18 10/21/18 10/21/18 10/21/18 04:00 04:00 04:14 05:00 Temp 98.6 98.6 Pulse 65 72 Resp 16 18 B/P (MAP) 171/84 (113) 179/79 (112) Pulse Ox 96 94 92 O2 Delivery Nasal Cannula Nasal Cannula Nasal Cannula Nasal Cannula O2 Flow Rate 5.0 5.0 4.0 5.0 10/21/18 10/21/18 10/21/18 10/21/18 06:00 06:21 08:22 09:27 Pulse 66 66 67 Resp 18 B/P (MAP) 178/75 (109) 178/75 134/62 Pulse Ox 97 98 O2 Delivery Nasal Cannula Nasal Cannula O2 Flow Rate 5.0 4.0 Intake and Output 10/20/18 10/20/18 10/21/18 15:00 23:00 07:00 Intake Total 820 ml 585 ml Output Total 260 ml 450 ml 900 ml Balance 560 ml 135 ml -900 ml STEVEN STACK MD October 21, 2018 10:52
--- NOTE | 2018-10-21 11:58 | PDOC ---
Renal-Progress Notes Subjective Notes Notes LESS SOB History of Present Illness Hx of present illness BETTER Vitals Vitals Vital Signs Date Time Temp Pulse Resp B/P (MAP) Pulse Ox O2 Delivery O2 Flow Rate FiO2 10/21/18 11:22 96 Nasal Cannula 2.0 10/21/18 09:27 67 134/62 10/21/18 06:00 18 10/21/18 04:00 98.6 98.6 Weight Weight [ ] I.O. Intake and Output Intake and Output 10/21/18 07:00 Intake Total 1405 ml Output Total 1610 ml Balance -205 ml Intake Oral 1405 ml Output Urine Total 1610 ml # Voids 2 Labs Labs Laboratory Tests Test 10/20/18 15:13 10/20/18 17:20 10/21/18 03:15 10/21/18 10:00 Glucose (Fingerstick) 168 mg/dL (70-99) Heparin Anti-Xa Act, Unfractionated 0.26 IU/mL (0.30-0.70) 0.50 IU/mL (0.30-0.70) 0.64 IU/mL (0.30-0.70) Sodium Level 137 mmol/L (136-145) Potassium Level 4.1 mmol/L (3.5-5.1) Chloride Level 100 mmol/L (98-107) Carbon Dioxide Level 27 mmol/L (21-32) Anion Gap 10 (6-14) Blood Urea Nitrogen 65 mg/dL (8-26) Creatinine 3.3 mg/dL (0.7-1.3) Estimated GFR (Cockcroft-Gault) 18.2 Glucose Level 204 mg/dL (70-99) Calcium Level 8.4 mg/dL (8.5-10.1) Magnesium Level 1.6 mg/dL (1.8-2.4) Review of Systems Constitutional: yes: weakness, alert, oriented Ears/Nose/Throat: Yes: no symptom reported Pulmonary: Yes dyspnea Cardiovascular: Yes no symptom reported Gastrointestional: Yes: constipation Genitourinary: Yes: no symptom reported Musculoskeletal: Yes: muscle stiffness Skin: Yes no symptom reported Psychiatric/Neurological: Yes: no symptom reported Endocrine: Yes: no symptom reported Physical Exam General Appearance: no apparent distress Skin: warm Respiratory: decreased breath sounds Heart: S1S2, RRR Abdomen: soft, bowel sounds present Genitourinary: bladder flat Neurology: oriented Assessment Assessment IMP VIN WITH CR OF 3.3-DUE TO DIURESIS MOST LIKELY CKD STAGE 3 WITH CR OF 1.5-2.0 ACUTE HYPOXIC RESP FAILURE NSTEMI CHF DIASTOLIC-ACUTE CAD HX WITH PTCA HTN HX-NOT CONTROLLED DM II HX MORBID OBESITY RIGHT ADRENAL ADENOMA PLAN AGREE WITH HOLDING WHIT-I NORVASC HOLD LASIX PULM EVAL CARDIOLOGY EVAL BLADDER SCAN AND RAZA WILL FOLLOW ROD PELAEZ MD October 21, 2018 11:58
[2018-10-21] MEDS: amLODIPine BESYLATE 5 MG TABLET PO SCH (12:30)
--- NOTE | 2018-10-21 16:30 | PDOC ---
PROGRESS NOTES Subjective Subjective Patient seen and examined He looks and feels better today. Objective Objective Vital Signs Date Time Temp Pulse Resp B/P (MAP) Pulse Ox O2 Delivery O2 Flow Rate FiO2 10/21/18 16:15 Nasal Cannula 2.0 10/21/18 11:22 96 10/21/18 09:27 67 134/62 10/21/18 06:00 18 10/21/18 04:00 98.6 98.6 Intake and Output 10/21/18 07:00 Intake Total 1405 ml Output Total 1610 ml Balance -205 ml Intake Oral 1405 ml Output Urine Total 1610 ml # Voids 2 Physical Exam Abdomen: Normal bowel sounds Heart: Regular rate General: mild distress Lungs: Other (mildly decreased breath sounds) Assessment Assessment Problems Medical Problems: (1) Acute on chronic renal insufficiency Status: Acute (2) CHF (congestive heart failure) Status: Acute (3) Hypoxemia Status: Acute (4) NSTEMI (non-ST elevated myocardial infarction) Status: Acute 1. NSTEMI: LBBB, Trop peak at 1.6. Echocardiogram with intact LV systolic function. No chest pain. Continue medical treatment. Would like to proceed with catheter when renal function is improved. Creatinine today is 3.3. Diuretics and WHIT inhibitor being held. 2. Acute CHF with likely diastolic dysfunction. Improved. Holding diuretics as above. 3. CAD; PCI 3 stents in the past. see above 4. HTN: controlled 5. HLP 6. DM2 7. VIN on CKD: Creatinine increased at 3.3. Followed by the renal service. 8. Morbid obesity Comment Review of Relevant I have reviewed the following items kristin (where applicable) has been applied. Labs Laboratory Tests Test 10/19/18 16:35 10/19/18 18:05 10/19/18 19:30 10/20/18 03:00 Troponin I Quantitative 1.204 ng/mL (0.000-0.055) 1.442 ng/mL (0.000-0.055) 1.612 ng/mL (0.000-0.055) Glucose (Fingerstick) 129 mg/dL (70-99) Heparin Anti-Xa Act, Unfractionated < 0.10 IU/mL (0.30-0.70) 0.21 IU/mL (0.30-0.70) White Blood Count 7.9 x10^3/uL (4.0-11.0) Red Blood Count 3.55 x10^6/uL (4.30-5.70) Hemoglobin 10.2 g/dL (13.0-17.5) Hematocrit 31.3 % (39.0-53.0) Mean Corpuscular Volume 88 fL (79-100) Mean Corpuscular Hemoglobin 29 pg (25-35) Mean Corpuscular Hemoglobin Concent 33 g/dL (31-37) Red Cell Distribution Width 14.0 % (11.5-14.5) Platelet Count 253 x10^3/uL (140-400) Neutrophils (%) (Auto) 62 % (31-73) Lymphocytes (%) (Auto) 24 % (24-48) Monocytes (%) (Auto) 11 % (0-9) Eosinophils (%) (Auto) 2 % (0-3) Basophils (%) (Auto) 1 % (0-3) Neutrophils # (Auto) 4.9 x10^3uL (1.8-7.7) Lymphocytes # (Auto) 1.9 x10^3/uL (1.0-4.8) Monocytes # (Auto) 0.8 x10^3/uL (0.0-1.1) Eosinophils # (Auto) 0.2 x10^3/uL (0.0-0.7) Basophils # (Auto) 0.1 x10^3/uL (0.0-0.2) Sodium Level 141 mmol/L (136-145) Potassium Level 3.8 mmol/L (3.5-5.1) Chloride Level 104 mmol/L (98-107) Carbon Dioxide Level 27 mmol/L (21-32) Anion Gap 10 (6-14) Blood Urea Nitrogen 58 mg/dL (8-26) Creatinine 3.0 mg/dL (0.7-1.3) Estimated GFR (Cockcroft-Gault) 20.3 BUN/Creatinine Ratio 19 (6-20) Glucose Level 147 mg/dL (70-99) Calcium Level 7.9 mg/dL (8.5-10.1) Total Bilirubin 0.3 mg/dL (0.2-1.0) Aspartate Amino Transf (AST/SGOT) 23 U/L (15-37) Alanine Aminotransferase (ALT/SGPT) 18 U/L (16-63) Alkaline Phosphatase 61 U/L (46-116) Total Protein 5.0 g/dL (6.4-8.2) Albumin 2.2 g/dL (3.4-5.0) Albumin/Globulin Ratio 0.8 (1.0-1.7) Test 10/20/18 11:20 10/20/18 15:13 10/20/18 17:20 10/21/18 03:15 Heparin Anti-Xa Act, Unfractionated 0.32 IU/mL (0.30-0.70) 0.26 IU/mL (0.30-0.70) 0.50 IU/mL (0.30-0.70) Troponin I Quantitative 1.218 ng/mL (0.000-0.055) Glucose (Fingerstick) 168 mg/dL (70-99) Sodium Level 137 mmol/L (136-145) Potassium Level 4.1 mmol/L (3.5-5.1) Chloride Level 100 mmol/L (98-107) Carbon Dioxide Level 27 mmol/L (21-32) Anion Gap 10 (6-14) Blood Urea Nitrogen 65 mg/dL (8-26) Creatinine 3.3 mg/dL (0.7-1.3) Estimated GFR (Cockcroft-Gault) 18.2 Glucose Level 204 mg/dL (70-99) Calcium Level 8.4 mg/dL (8.5-10.1) Magnesium Level 1.6 mg/dL (1.8-2.4) Test 10/21/18 10:00 Heparin Anti-Xa Act, Unfractionated 0.64 IU/mL (0.30-0.70) Laboratory Tests Test 10/20/18 17:20 10/21/18 03:15 10/21/18 10:00 Heparin Anti-Xa Act, Unfractionated 0.26 IU/mL (0.30-0.70) 0.50 IU/mL (0.30-0.70) 0.64 IU/mL (0.30-0.70) Sodium Level 137 mmol/L (136-145) Potassium Level 4.1 mmol/L (3.5-5.1) Chloride Level 100 mmol/L (98-107) Carbon Dioxide Level 27 mmol/L (21-32) Anion Gap 10 (6-14) Blood Urea Nitrogen 65 mg/dL (8-26) Creatinine 3.3 mg/dL (0.7-1.3) Estimated GFR (Cockcroft-Gault) 18.2 Glucose Level 204 mg/dL (70-99) Calcium Level 8.4 mg/dL (8.5-10.1) Magnesium Level 1.6 mg/dL (1.8-2.4) Medications Current Medications Albuterol/ Ipratropium (Duoneb) 3 ml 1X ONCE NEB Last administered on 10/19/18 12:00; Start 10/19/18 at 11:45; Stop 10/19/18 at 11:46; Status DC Heparin Sodium (Porcine) (Heparin Sodium) 4,000 unit 1X ONCE IV Last administered on 10/19/18 12:29; Start 10/19/18 at 12:30; Stop 10/19/18 at 12:31; Status DC Heparin Sodium/ Dextrose 500 ml @ 0 mls/hr CONT PRN IV SEE I/O RECORD Last administered on 10/21/18 00:21; Start 10/19/18 at 12:30 Heparin Sodium (Porcine) (Heparin Sodium) 3,000 unit PRN Q6HRS PRN IV FOR UFH LEVEL LESS THAN 0.2 Last administered on 10/19/18 20:34; Start 10/19/18 at 12:30 Info (Anti-Coagulation Monitoring By Pharmacy) 1 each PRN DAILY PRN MC SEE COMMENTS Last administered on 10/21/18 09:18; Start 10/19/18 at 12:30 Furosemide (Lasix) 60 mg 1X ONCE IVP Last administered on 10/19/18 13:00; Start 10/19/18 at 13:00; Stop 10/19/18 at 13:01; Status DC Ondansetron HCl (Zofran) 4 mg PRN Q8HRS PRN IV NAUSEA/VOMITING; Start 10/19/18 at 13:30; Stop 10/20/18 at 13:29; Status DC Morphine Sulfate (Morphine Sulfate) 2 mg PRN Q2HR PRN IV PAIN; Start 10/19/18 at 13:30; Stop 10/20/18 at 13:29; Status DC Nitroglycerin (Nitrostat) 0.4 mg PRN Q5MIN PRN SL CHEST PAIN; Start 10/19/18 at 13:30; Stop 10/20/18 at 13:29; Status DC Albuterol/ Ipratropium (Duoneb) 3 ml RTQID NEB ; Start 10/19/18 at 16:00; Stop 10/19/18 at 16:00; Status DC Amlodipine Besylate (Norvasc) 5 mg 1X ONCE PO Last administered on 10/19/18at 13:53; Start 10/19/18 at 13:30; Stop 10/19/18 at 13:31; Status DC Nitroglycerin (Nitro-Bid Oint) 0.5 inch Q6HRS TP Last administered on 10/21/18 06:21; Start 10/19/18 at 14:00 Aspirin (Ecotrin) 81 mg DAILYWBKFT PO Last administered on 10/21/18 09:26; S tart 10/19/18 at 14:00 Metoprolol Tartrate (Lopressor) 25 mg BID PO Last administered on 10/21/18at 09:27; Start 10/19/18 at 14:00 Atorvastatin Calcium (Lipitor) 40 mg QHS PO Last administered on 10/20/18at 21:33; Start 10/19/18 at 21:00 Sodium Chloride (Normal Saline Flush 3ml) 3 ml QSHIFT PRN IV AFTER MEDS AND BLOOD DRAWS; Start 10/19/18 at 15:15 Ondansetron HCl (Zofran) 4 mg PRN Q4HRS PRN IV NAUSEA/VOMITING; Start 10/19/18 at 15:15 Acetaminophen (Tylenol) 650 mg PRN Q4HRS PRN PO TEMP OVER 100.4F OR MILD PAIN; Start 10/19/18 at 15:15 Al Hydroxide/Mg Hydroxide (Mylanta Plus Xs) 30 ml PRN DAILY PRN PO HEARTBURN / GAS; Start 10/19/18 at 15:15 Clonidine HCl (Catapres) 0.1 mg PRN Q6HRS PRN PO SBP>160 OR DBP>90; Start 10/19/18 at 15:15 Docusate Sodium (Colace) 100 mg PRN BID PRN PO CONSTIPATION; Start 10/19/18 at 15:15 Albuterol/ Ipratropium (Duoneb) 3 ml Q4HRS NEB Last administered on 10/21/18at 16:13; Start 10/19/18 at 16:00 Guaifenesin (Robitussin) 200 mg PRN Q4HRS PRN PO COUGH; Start 10/19/18 at 15:15 Enoxaparin Sodium (Lovenox 40mg Syringe) 40 mg DAILY SQ ; Start 10/20/18 at 09:00; Stop 10/20/18 at 09:00; Status DC Sodium Bicarbonate (Sodium Bicarb Adult 8.4% Syr) 50 meq 1X ONCE IV Last administered on 10/19/18at 16:42; Start 10/19/18 at 16:30; Stop 10/19/18 at 16:33; Status DC Insulin Human Lispro (HumaLOG) 0-7 UNITS TIDWMEALS SQ Last administered on 10/21/18at 09:37; Start 10/19/18 at 18:00 Dextrose (Dextrose 50%-Water Syringe) 12.5 gm PRN Q15MIN PRN IV SEE COMMENTS; Start 10/19/18 at 18:00 Furosemide (Lasix) 40 mg Q8HRS IVP Last administered on 10/21/18at 06:22; Start 10/20/18 at 14:00 Amlodipine Besylate (Norvasc) 5 mg DAILY PO ; Start 10/21/18 at 12:30 Tamsulosin HCl (Flomax) 0.4 mg QHS PO ; Start 10/21/18 at 21:00 Active Scripts Active Reported Metoprolol Tartrate 25 Mg Tablet 12.5 Mg PO QHS Fish Oil 1,000 mg Softgel ([place]-3S/Dha/Epa/Fish Oil) 1 Each Capsule 1 Each PO Veltassa (Patiromer Calcium Sorbitex) 8.4 Gm Powd.pack 8.4 Gm PO DAILY Vitamin D-3 (Cholecalciferol (Vitamin D3)) 2,000 Unit Tablet 5,000 Unit PO DAILY Aspirin 325 Mg Tablet 1 Tab PO DAILY Amlodipine Besylate 5 Mg Tablet 5 Mg PO DAILY Metoprolol Tartrate 25 Mg Tablet 1 Tab PO DAILY Atorvastatin Calcium 40 Mg Tablet 1 Tab PO QHS Basaglar Kwikpen U-100 (Insulin Glargine,Hum.rec.anlog) 100 Unit/1 Ml Insuln.pen 35 Unit SQ DAILY Lisinopril 20 Mg Tablet 40 Mg PO DAILY Vitals/I & O Vital Sign - Last 24 Hours 10/20/18 10/20/18 10/20/18 10/20/18 16:32 16:57 17:00 18:00 Pulse 66 58 78 Resp 11 23 B/P (MAP) 155/78 163/69 (100) 182/82 (115) Pulse Ox 94 96 95 O2 Delivery Nasal Cannula Nasal Cannula Nasal Cannula O2 Flow Rate 4.0 5.0 5.0 10/20/18 10/20/18 10/20/18 10/20/18 18:43 19:00 20:00 20:00 Temp 98.2 98.2 Pulse 78 62 64 Resp 17 21 B/P (MAP) 182/82 156/67 (96) 121/70 (87) Pulse Ox 95 93 O2 Delivery Nasal Cannula Nasal Cannula Nasal Cannula O2 Flow Rate 5.0 5.0 5.0 10/20/18 10/20/18 10/20/18 10/20/18 20:00 21:00 21:34 22:00 Pulse 67 73 73 Resp 20 10 B/P (MAP) 156/60 (92) 156/60 148/65 (92) Pulse Ox 94 93 93 O2 Delivery Nasal Cannula Nasal Cannula Nasal Cannula O2 Flow Rate 4.0 5.0 5.0 10/20/18 10/21/18 10/21/18 10/21/18 23:00 00:00 00:00 00:19 Temp 98.7 98.7 Pulse 79 80 72 Resp 21 23 B/P (MAP) 151/68 (95) 164/65 (98) 164/65 Pulse Ox 95 94 O2 Delivery Nasal Cannula Nasal Cannula Nasal Cannula O2 Flow Rate 5.0 5.0 5.0 10/21/18 10/21/18 10/21/18 10/21/18 00:27 01:00 02:00 03:00 Pulse 69 59 61 Resp 16 18 18 B/P (MAP) 120/65 (83) 170/68 (102) 175/71 (105) Pulse Ox 94 94 94 92 O2 Delivery Nasal Cannula Nasal Cannula Nasal Cannula Nasal Cannula O2 Flow Rate 4.0 5.0 5.0 5.0 10/21/18 10/21/18 10/21/18 10/21/18 04:00 04:00 04:14 05:00 Temp 98.6 98.6 Pulse 65 72 Resp 16 18 B/P (MAP) 171/84 (113) 179/79 (112) Pulse Ox 96 94 92 O2 Delivery Nasal Cannula Nasal Cannula Nasal Cannula Nasal Cannula O2 Flow Rate 5.0 5.0 4.0 5.0 10/21/18 10/21/18 10/21/18 10/21/18 06:00 06:21 08:00 08:22 Pulse 66 66 Resp 18 B/P (MAP) 178/75 (109) 178/75 Pulse Ox 97 98 O2 Delivery Nasal Cannula Nasal Cannula Nasal Cannula O2 Flow Rate 5.0 5.0 4.0 10/21/18 10/21/18 10/21/18 10/21/18 09:27 11:22 12:00 16:15 Pulse 67 B/P (MAP) 134/62 Pulse Ox 96 O2 Delivery Nasal Cannula Nasal Cannula Nasal Cannula O2 Flow Rate 2.0 5.0 2.0 Intake and Output 10/20/18 10/20/18 10/21/18 15:00 23:00 07:00 Intake Total 820 ml 585 ml Output Total 260 ml 450 ml 900 ml Balance 560 ml 135 ml -900 ml JOSE PEREZ MD October 21, 2018 16:30
[2018-10-21] MEDS: ATORVASTATIN CALCIUM 40 MG TABLET. PO SCH (21:42)
[2018-10-21] MEDS: TAMSULOSIN 0.4 MG CAP.ER.24H. PO SCH (21:43)
[2018-10-21] MEDS: cloNIDine HCL 0.1 MG TABLET PO PRN (23:17)
[2018-10-21] MEDS: DOCUSATE SODIUM 100 MG CAPSULE. PO PRN (23:21)
[2018-10-22] VITALS (7 sets, daily range): BP systolic 116–186; BP diastolic 54–81
[2018-10-22] MEDS ORDERED: MAGNESIUM SULFATE 2GM 50 ML IV ONE (01:00)
[2018-10-22] MEDS ORDERED: rOPINIRole 1 MG TABLET. PO ONE (01:00)
[2018-10-22] MEDS: HEPARIN 25,000UTS/500ML PREMIX 500 ML IV PRN (02:37)
[2018-10-22] MEDS: IPRATRPIUM/ALBUTEROL 0.5/2.5MG 3 ML NEBU. NEB SCH ×6 (03:44→22:46)
[2018-10-22 04:17] LABS: HEMATOCRIT 31.2 % (39.0-53.0); HEMOGLOBIN 10.1 g/dL (13.0-17.5); RED BLOOD COUNT 3.54 x10^6/uL (4.30-5.70); RED CELL DISTRIBUTION WIDTH 14.2 % (11.5-14.5); WHITE BLOOD COUNT 7.8 x10^3/uL (4.0-11.0)
[2018-10-22 05:23] LABS: CALCIUM 8.2 mg/dL (8.5-10.1); CREATININE 3.2 mg/dL (0.7-1.3); GFR 18.9; POTASSIUM 4.1 mmol/L (3.5-5.1)
[2018-10-22] MEDS: NITROGLYCERIN OINT 1 GM PACKET. TP SCH ×3 (05:44→17:27)
--- NOTE | 2018-10-22 07:57 | RAD ---
Portable chest, 10/22/2018: HISTORY: Effusions Comparison is made to a study from 10/19/2018. The heart is mildly enlarged. There is a persistent opacity obscuring the left hemidiaphragm compatible with pleural fluid and underlying atelectasis/infiltrate. This appears to have improved slightly. Blunting of the right lateral costophrenic angle has improved. The upper lung garcia are clear. No new abnormality is detected. IMPRESSION: 1. Improving small right pleural effusion and underlying atelectasis. 2. Moderate ongoing left pleural effusion and underlying atelectasis/infiltrate. Electronically signed by: Cory Kelsey MD (10/22/2018 7:54 AM) [facility]
[2018-10-22] MEDS: ASPIRIN ENTERIC COATED 81 MG TABLET.DR. PO SCH (08:27)
[2018-10-22] MEDS: METOPROLOL TART IMMED RELEASE 25 MG TABLET. PO SCH ×2 (08:27→22:09)
[2018-10-22] MEDS: amLODIPine BESYLATE 5 MG TABLET PO SCH (08:27)
[2018-10-22] MEDS: INSULIN LISPRO 300 UNITS/3 ML INSULN.PEN. SQ SCH ×3 (08:32→17:33)
--- NOTE | 2018-10-22 10:43 | PDOC ---
PULMONARY PROGRESS NOTES Subjective no soa Vitals Vital Signs Date Time Temp Pulse Resp B/P (MAP) Pulse Ox O2 Delivery O2 Flow Rate FiO2 10/22/18 08:27 74 143/65 10/22/18 08:00 Nasal Cannula 2.0 10/22/18 07:50 95 10/22/18 07:00 97.7 18 97.7 General: Alert, No acute distress Lungs: Clear Cardiovascular: S1 Abdomen: Soft Neuro Exam: Alert Extremities: Other (1+edema) Labs Laboratory Tests Test 10/20/18 11:20 10/20/18 15:13 10/20/18 16:35 10/20/18 17:20 Heparin Anti-Xa Act, Unfractionated 0.32 IU/mL (0.30-0.70) 0.26 IU/mL (0.30-0.70) Troponin I Quantitative 1.218 ng/mL (0.000-0.055) Glucose (Fingerstick) 168 mg/dL (70-99) 164 mg/dL (70-99) Test 10/21/18 03:15 10/21/18 10:00 10/21/18 17:10 10/21/18 17:11 Heparin Anti-Xa Act, Unfractionated 0.50 IU/mL (0.30-0.70) 0.64 IU/mL (0.30-0.70) 0.22 IU/mL (0.30-0.70) Sodium Level 137 mmol/L (136-145) Potassium Level 4.1 mmol/L (3.5-5.1) Chloride Level 100 mmol/L (98-107) Carbon Dioxide Level 27 mmol/L (21-32) Anion Gap 10 (6-14) Blood Urea Nitrogen 65 mg/dL (8-26) Creatinine 3.3 mg/dL (0.7-1.3) Estimated GFR (Cockcroft-Gault) 18.2 Glucose Level 204 mg/dL (70-99) Calcium Level 8.4 mg/dL (8.5-10.1) Magnesium Level 1.6 mg/dL (1.8-2.4) Glucose (Fingerstick) 151 mg/dL (70-99) Test 10/21/18 20:52 10/22/18 00:50 10/22/18 08:04 10/22/18 08:05 Glucose (Fingerstick) 264 mg/dL (70-99) 222 mg/dL (70-99) White Blood Count 7.8 x10^3/uL (4.0-11.0) Red Blood Count 3.54 x10^6/uL (4.30-5.70) Hemoglobin 10.1 g/dL (13.0-17.5) Hematocrit 31.2 % (39.0-53.0) Mean Corpuscular Volume 88 fL (79-100) Mean Corpuscular Hemoglobin 29 pg (25-35) Mean Corpuscular Hemoglobin Concent 33 g/dL (31-37) Red Cell Distribution Width 14.2 % (11.5-14.5) Platelet Count 264 x10^3/uL (140-400) Heparin Anti-Xa Act, Unfractionated 0.67 IU/mL (0.30-0.70) 0.69 IU/mL (0.30-0.70) Sodium Level 137 mmol/L (136-145) Potassium Level 4.1 mmol/L (3.5-5.1) Chloride Level 101 mmol/L (98-107) Carbon Dioxide Level 27 mmol/L (21-32) Anion Gap 9 (6-14) Blood Urea Nitrogen 62 mg/dL (8-26) Creatinine 3.2 mg/dL (0.7-1.3) Estimated GFR (Cockcroft-Gault) 18.9 Glucose Level 222 mg/dL (70-99) Calcium Level 8.2 mg/dL (8.5-10.1) Magnesium Level 2.1 mg/dL (1.8-2.4) Laboratory Tests Test 10/21/18 17:10 10/21/18 17:11 10/21/18 20:52 10/22/18 00:50 Heparin Anti-Xa Act, Unfractionated 0.22 IU/mL (0.30-0.70) 0.67 IU/mL (0.30-0.70) Glucose (Fingerstick) 151 mg/dL (70-99) 264 mg/dL (70-99) White Blood Count 7.8 x10^3/uL (4.0-11.0) Red Blood Count 3.54 x10^6/uL (4.30-5.70) Hemoglobin 10.1 g/dL (13.0-17.5) Hematocrit 31.2 % (39.0-53.0) Mean Corpuscular Volume 88 fL (79-100) Mean Corpuscular Hemoglobin 29 pg (25-35) Mean Corpuscular Hemoglobin Concent 33 g/dL (31-37) Red Cell Distribution Width 14.2 % (11.5-14.5) Platelet Count 264 x10^3/uL (140-400) Sodium Level 137 mmol/L (136-145) Potassium Level 4.1 mmol/L (3.5-5.1) Chloride Level 101 mmol/L (98-107) Carbon Dioxide Level 27 mmol/L (21-32) Anion Gap 9 (6-14) Blood Urea Nitrogen 62 mg/dL (8-26) Creatinine 3.2 mg/dL (0.7-1.3) Estimated GFR (Cockcroft-Gault) 18.9 Glucose Level 222 mg/dL (70-99) Calcium Level 8.2 mg/dL (8.5-10.1) Test 10/22/18 08:04 10/22/18 08:05 Glucose (Fingerstick) 222 mg/dL (70-99) Heparin Anti-Xa Act, Unfractionated 0.69 IU/mL (0.30-0.70) Magnesium Level 2.1 mg/dL (1.8-2.4) Medications Active Scripts Medications Dose Route/Sig Max Daily Dose Days Date Category Metoprolol Tartrate 25 Mg Tablet 12.5 Mg PO QHS 10/19/18 Reported Fish Oil 1,000 mg Softgel ([place]-3S/Dha/Epa/Fish Oil) 1 Each Capsule 1 Each PO 10/19/18 Reported Veltassa (Patiromer Calcium Sorbitex) 8.4 Gm Powd.pack 8.4 Gm PO DAILY 10/19/18 Reported Vitamin D-3 (Cholecalciferol (Vitamin D3)) 2,000 Unit Tablet 5,000 Unit PO DAILY 10/19/18 Reported Aspirin 325 Mg Tablet 1 Tab PO DAILY 10/19/18 Reported Amlodipine Besylate 5 Mg Tablet 5 Mg PO DAILY 10/19/18 Reported Metoprolol Tartrate 25 Mg Tablet 1 Tab PO DAILY 10/19/18 Reported Atorvastatin Calcium 40 Mg Tablet 1 Tab PO QHS 10/19/18 Reported Basaglar Heshamikpen U-100 (Insulin Glargine,Hum.rec.anlog) 100 Unit/1 Ml Insuln.pen 35 Unit SQ DAILY 10/19/18 Reported Lisinopril 20 Mg Tablet 40 Mg PO DAILY 06/03/13 Reported Comments cxr 5/6 IMPROVED RIGHT EFFUSION/ SMALL- MODERATE LEFT EFFUSION Impression . 1. Acute hypoxic respiratory failure secondary to suspected [id number] diastolic heart failure and bilateral pleural effusions. Clinically, less likely thromboembolic disease. His venous Dopplers of the lower extremities were negative for DVT. Could not lay flat for V/Q/. No need to do that 2. History of coronary artery disease, 3-vessel disease with percutaneous coronary intervention of circumflex in the past and now with a non-ST myocardial infarction. 3. Suspected obstructive sleep apnea. He should benefit from sleep study as an outpatient. 4. Chronic kidney disease, which makes it difficult to diurese. Plan . 1. Continue with present canula 2. hold diuresis with a close followup on the renal function. 3. CXR /6 reviewed. Improving right effusion, monitor left. hold thoracentesis. clinically asymptomatic 4. Bronchodilators. 5. Follow Cardiology recommendations. 6. Discussed with BEA GRAMAJO MD October 22, 2018 10:43
--- NOTE | 2018-10-22 10:49 | PDOC ---
Renal-Progress Notes Subjective Notes Notes SITTING UP, FEELING BETTER History of Present Illness Hx of present illness BETTER Vitals Vitals Vital Signs Date Time Temp Pulse Resp B/P (MAP) Pulse Ox O2 Delivery O2 Flow Rate FiO2 10/22/18 08:27 74 143/65 10/22/18 08:00 Nasal Cannula 2.0 10/22/18 07:50 95 10/22/18 07:00 97.7 18 97.7 Weight Weight [ ] I.O. Intake and Output Intake and Output 10/22/18 06:59 Intake Total 1572 ml Output Total 2200 ml Balance -628 ml Intake Oral 1450 ml IV Total 122 ml Output Urine Total 2200 ml Labs Labs Laboratory Tests Test 10/21/18 17:10 10/21/18 17:11 10/21/18 20:52 10/22/18 00:50 Heparin Anti-Xa Act, Unfractionated 0.22 IU/mL (0.30-0.70) 0.67 IU/mL (0.30-0.70) Glucose (Fingerstick) 151 mg/dL (70-99) 264 mg/dL (70-99) White Blood Count 7.8 x10^3/uL (4.0-11.0) Red Blood Count 3.54 x10^6/uL (4.30-5.70) Hemoglobin 10.1 g/dL (13.0-17.5) Hematocrit 31.2 % (39.0-53.0) Mean Corpuscular Volume 88 fL (79-100) Mean Corpuscular Hemoglobin 29 pg (25-35) Mean Corpuscular Hemoglobin Concent 33 g/dL (31-37) Red Cell Distribution Width 14.2 % (11.5-14.5) Platelet Count 264 x10^3/uL (140-400) Sodium Level 137 mmol/L (136-145) Potassium Level 4.1 mmol/L (3.5-5.1) Chloride Level 101 mmol/L (98-107) Carbon Dioxide Level 27 mmol/L (21-32) Anion Gap 9 (6-14) Blood Urea Nitrogen 62 mg/dL (8-26) Creatinine 3.2 mg/dL (0.7-1.3) Estimated GFR (Cockcroft-Gault) 18.9 Glucose Level 222 mg/dL (70-99) Calcium Level 8.2 mg/dL (8.5-10.1) Test 10/22/18 08:04 10/22/18 08:05 Glucose (Fingerstick) 222 mg/dL (70-99) Heparin Anti-Xa Act, Unfractionated 0.69 IU/mL (0.30-0.70) Magnesium Level 2.1 mg/dL (1.8-2.4) Review of Systems Constitutional: yes: weakness, alert, oriented Ears/Nose/Throat: Yes: no symptom reported Pulmonary: Yes dyspnea Cardiovascular: Yes no symptom reported Gastrointestional: Yes: constipation Genitourinary: Yes: no symptom reported Musculoskeletal: Yes: muscle stiffness Skin: Yes no symptom reported Psychiatric/Neurological: Yes: no symptom reported Endocrine: Yes: no symptom reported Physical Exam General Appearance: no apparent distress Skin: warm Respiratory: decreased breath sounds Heart: S1S2, RRR Abdomen: soft, bowel sounds present Genitourinary: bladder flat Neurology: oriented Assessment Assessment IMP VIN WITH CR BETTER AT 3.2DUE TO DIURESIS MOST LIKELY CKD STAGE 3 WITH CR OF 1.5-2.0 ACUTE HYPOXIC RESP FAILURE NSTEMI CHF DIASTOLIC-ACUTE CAD HX WITH PTCA HTN HX-BETTER DM II HX MORBID OBESITY RIGHT ADRENAL ADENOMA PLAN AGREE WITH HOLDING WHIT-I NORVASC START PO LASIX TOMORROW PULM EVAL CARDIOLOGY EVAL WILL FOLLOW ROD PELAEZ MD October 22, 2018 10:49
--- NOTE | 2018-10-22 11:07 | PDOC ---
CARDIO Progress Notes Date and Time Date of Service 10/22/18 Time of Evaluation 1040 Subjective Subjective: No Chest Pain, No shortness of breath, No Palpitations Vitals Vitals Vital Signs Date Time Temp Pulse Resp B/P (MAP) Pulse Ox O2 Delivery O2 Flow Rate FiO2 10/22/18 08:27 74 143/65 10/22/18 08:00 Nasal Cannula 2.0 10/22/18 07:50 95 10/22/18 07:00 97.7 18 97.7 Weight Weight [ ] Input and Output Intake and Output Intake and Output 10/22/18 07:00 Intake Total 1572 ml Output Total 2200 ml Balance -628 ml Intake Oral 1450 ml IV Total 122 ml Output Urine Total 2200 ml Laboratory Labs Laboratory Tests Test 10/21/18 17:10 10/21/18 17:11 10/21/18 20:52 10/22/18 00:50 Heparin Anti-Xa Act, Unfractionated 0.22 IU/mL (0.30-0.70) 0.67 IU/mL (0.30-0.70) Glucose (Fingerstick) 151 mg/dL (70-99) 264 mg/dL (70-99) White Blood Count 7.8 x10^3/uL (4.0-11.0) Red Blood Count 3.54 x10^6/uL (4.30-5.70) Hemoglobin 10.1 g/dL (13.0-17.5) Hematocrit 31.2 % (39.0-53.0) Mean Corpuscular Volume 88 fL (79-100) Mean Corpuscular Hemoglobin 29 pg (25-35) Mean Corpuscular Hemoglobin Concent 33 g/dL (31-37) Red Cell Distribution Width 14.2 % (11.5-14.5) Platelet Count 264 x10^3/uL (140-400) Sodium Level 137 mmol/L (136-145) Potassium Level 4.1 mmol/L (3.5-5.1) Chloride Level 101 mmol/L (98-107) Carbon Dioxide Level 27 mmol/L (21-32) Anion Gap 9 (6-14) Blood Urea Nitrogen 62 mg/dL (8-26) Creatinine 3.2 mg/dL (0.7-1.3) Estimated GFR (Cockcroft-Gault) 18.9 Glucose Level 222 mg/dL (70-99) Calcium Level 8.2 mg/dL (8.5-10.1) Test 10/22/18 08:04 10/22/18 08:05 Glucose (Fingerstick) 222 mg/dL (70-99) Heparin Anti-Xa Act, Unfractionated 0.69 IU/mL (0.30-0.70) Magnesium Level 2.1 mg/dL (1.8-2.4) Review of Systems Constitutional: yes: weakness, alert, oriented Ears/Nose/Throat: Yes: no symptom reported Pulmonary: Yes dyspnea Cardiovascular: Yes no symptom reported Gastrointestional: Yes: constipation Genitourinary: Yes: no symptom reported Musculoskeletal: Yes: muscle stiffness Skin: Yes no symptom reported Psychiatric/Neurological: Yes: no symptom reported Endocrine: Yes: no symptom reported Physical Exam HEENT: Neck Supple W Full Motion Chest: Symmetric LUNGS: Other (fine expiratroy wheezes, diminished bases) Heart: S1S2, RRR, no murmurs Abdomen: Soft N/T, Other (obese) Extremities: Other (1+ bilateral LE edema ) Neurology: alert, oriented, follow commands Assessment Assessment 1. NSTEMI: LBBB, Trop peak at 1.6. Echocardiogram with intact LV systolic function. CP free. 2. Acute diastolic CHF; Better compensated 3. CAD; PCI 3 stents in the past. see above 4. HTN: controlled 5. Hyperlipidemia 6. DM2 7. VIN on CKD: Creatinine increased at 3.2. Followed by the renal service. 8. Morbid obesity Recommendations May stop heparin gtt Continue ASA, statin, BB Add Plavix ACEi and diuretics on hold with VIN Follow renal recs Cardiac cath when renal function improved. SALLY ARITA APRN October 22, 2018 11:07
--- NOTE | 2018-10-22 12:10 | NUR ---
SS following for discharge planning. SS reviewed pt chart. Pt is from home with spouse and is currently requiring oxygen. PT/OT ordered. SS will await PT/OT evaluations and recommendations and will proceed accordingly.
--- NOTE | 2018-10-22 12:26 | PDOC ---
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 Obesity Tobacco Abuse Hyperlipidemia HTN BPH Acute hypoxic respiratory failure - 2/2 [id number] diastolic heart failure and bilateral pleural effusions Coronary artery disease s/p 3-vessel disease with percutaneous coronary intervention of circumflex in the past History of Present Illness History of Present Illness Patient seen and examined Discussed with nurse Patient well appearing Cr elevated so temporarily holding diuretics, [place] in place with adequate output Vitals Vitals Vital Signs Date Time Temp Pulse Resp B/P (MAP) Pulse Ox O2 Delivery O2 Flow Rate FiO2 10/22/18 12:05 55 154/69 10/22/18 11:46 99 Nasal Cannula 2.0 10/22/18 11:00 97.7 18 97.7 Physical Exam General: Alert, Oriented X3, Cooperative, No acute distress Heart: Regular rate Lungs: Clear Abdomen: Normal bowel sounds Extremities: No clubbing Skin: No breakdown Labs LABS Laboratory Tests Test 10/21/18 17:10 10/21/18 17:11 10/21/18 20:52 10/22/18 00:50 Heparin Anti-Xa Act, Unfractionated 0.22 IU/mL (0.30-0.70) 0.67 IU/mL (0.30-0.70) Glucose (Fingerstick) 151 mg/dL (70-99) 264 mg/dL (70-99) White Blood Count 7.8 x10^3/uL (4.0-11.0) Red Blood Count 3.54 x10^6/uL (4.30-5.70) Hemoglobin 10.1 g/dL (13.0-17.5) Hematocrit 31.2 % (39.0-53.0) Mean Corpuscular Volume 88 fL (79-100) Mean Corpuscular Hemoglobin 29 pg (25-35) Mean Corpuscular Hemoglobin Concent 33 g/dL (31-37) Red Cell Distribution Width 14.2 % (11.5-14.5) Platelet Count 264 x10^3/uL (140-400) Sodium Level 137 mmol/L (136-145) Potassium Level 4.1 mmol/L (3.5-5.1) Chloride Level 101 mmol/L (98-107) Carbon Dioxide Level 27 mmol/L (21-32) Anion Gap 9 (6-14) Blood Urea Nitrogen 62 mg/dL (8-26) Creatinine 3.2 mg/dL (0.7-1.3) Estimated GFR (Cockcroft-Gault) 18.9 Glucose Level 222 mg/dL (70-99) Calcium Level 8.2 mg/dL (8.5-10.1) Test 10/22/18 08:04 10/22/18 08:05 10/22/18 11:23 Glucose (Fingerstick) 222 mg/dL (70-99) 235 mg/dL (70-99) Heparin Anti-Xa Act, Unfractionated 0.69 IU/mL (0.30-0.70) Magnesium Level 2.1 mg/dL (1.8-2.4) Review of Systems Review of Systems Patient denies MENDENHALL Patient denies abdominal pain Assessment and Plan Assessmemt and Plan Problems Medical Problems: (1) Acute on chronic renal insufficiency Status: Acute (2) CHF (congestive heart failure) Status: Acute (3) Hypoxemia Status: Acute (4) NSTEMI (non-ST elevated myocardial infarction) Status: Acute Assessment: NSTEMI (non-ST elevated myocardial infarction) CHF (congestive heart failure) 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 Labs Laboratory Tests Test 10/20/18 15:13 10/20/18 16:35 10/20/18 17:20 10/21/18 03:15 Glucose (Fingerstick) 168 mg/dL (70-99) 164 mg/dL (70-99) Heparin Anti-Xa Act, Unfractionated 0.26 IU/mL (0.30-0.70) 0.50 IU/mL (0.30-0.70) Sodium Level 137 mmol/L (136-145) Potassium Level 4.1 mmol/L (3.5-5.1) Chloride Level 100 mmol/L (98-107) Carbon Dioxide Level 27 mmol/L (21-32) Anion Gap 10 (6-14) Blood Urea Nitrogen 65 mg/dL (8-26) Creatinine 3.3 mg/dL (0.7-1.3) Estimated GFR (Cockcroft-Gault) 18.2 Glucose Level 204 mg/dL (70-99) Calcium Level 8.4 mg/dL (8.5-10.1) Magnesium Level 1.6 mg/dL (1.8-2.4) Test 10/21/18 10:00 10/21/18 17:10 10/21/18 17:11 10/21/18 20:52 Heparin Anti-Xa Act, Unfractionated 0.64 IU/mL (0.30-0.70) 0.22 IU/mL (0.30-0.70) Glucose (Fingerstick) 151 mg/dL (70-99) 264 mg/dL (70-99) Test 10/22/18 00:50 10/22/18 08:04 10/22/18 08:05 10/22/18 11:23 White Blood Count 7.8 x10^3/uL (4.0-11.0) Red Blood Count 3.54 x10^6/uL (4.30-5.70) Hemoglobin 10.1 g/dL (13.0-17.5) Hematocrit 31.2 % (39.0-53.0) Mean Corpuscular Volume 88 fL (79-100) Mean Corpuscular Hemoglobin 29 pg (25-35) Mean Corpuscular Hemoglobin Concent 33 g/dL (31-37) Red Cell Distribution Width 14.2 % (11.5-14.5) Platelet Count 264 x10^3/uL (140-400) Heparin Anti-Xa Act, Unfractionated 0.67 IU/mL (0.30-0.70) 0.69 IU/mL (0.30-0.70) Sodium Level 137 mmol/L (136-145) Potassium Level 4.1 mmol/L (3.5-5.1) Chloride Level 101 mmol/L (98-107) Carbon Dioxide Level 27 mmol/L (21-32) Anion Gap 9 (6-14) Blood Urea Nitrogen 62 mg/dL (8-26) Creatinine 3.2 mg/dL (0.7-1.3) Estimated GFR (Cockcroft-Gault) 18.9 Glucose Level 222 mg/dL (70-99) Calcium Level 8.2 mg/dL (8.5-10.1) Glucose (Fingerstick) 222 mg/dL (70-99) 235 mg/dL (70-99) Magnesium Level 2.1 mg/dL (1.8-2.4) Laboratory Tests Test 10/21/18 17:10 10/21/18 17:11 10/21/18 20:52 10/22/18 00:50 Heparin Anti-Xa Act, Unfractionated 0.22 IU/mL (0.30-0.70) 0.67 IU/mL (0.30-0.70) Glucose (Fingerstick) 151 mg/dL (70-99) 264 mg/dL (70-99) White Blood Count 7.8 x10^3/uL (4.0-11.0) Red Blood Count 3.54 x10^6/uL (4.30-5.70) Hemoglobin 10.1 g/dL (13.0-17.5) Hematocrit 31.2 % (39.0-53.0) Mean Corpuscular Volume 88 fL (79-100) Mean Corpuscular Hemoglobin 29 pg (25-35) Mean Corpuscular Hemoglobin Concent 33 g/dL (31-37) Red Cell Distribution Width 14.2 % (11.5-14.5) Platelet Count 264 x10^3/uL (140-400) Sodium Level 137 mmol/L (136-145) Potassium Level 4.1 mmol/L (3.5-5.1) Chloride Level 101 mmol/L (98-107) Carbon Dioxide Level 27 mmol/L (21-32) Anion Gap 9 (6-14) Blood Urea Nitrogen 62 mg/dL (8-26) Creatinine 3.2 mg/dL (0.7-1.3) Estimated GFR (Cockcroft-Gault) 18.9 Glucose Level 222 mg/dL (70-99) Calcium Level 8.2 mg/dL (8.5-10.1) Test 10/22/18 08:04 10/22/18 08:05 10/22/18 11:23 Glucose (Fingerstick) 222 mg/dL (70-99) 235 mg/dL (70-99) Heparin Anti-Xa Act, Unfractionated 0.69 IU/mL (0.30-0.70) Magnesium Level 2.1 mg/dL (1.8-2.4) Medications Current Medications Albuterol/ Ipratropium (Duoneb) 3 ml 1X ONCE NEB Last administered on 10/19/18at 12:00; Start 10/19/18 at 11:45; Stop 10/19/18 at 11:46; Status DC Heparin Sodium (Porcine) (Heparin Sodium) 4,000 unit 1X ONCE IV Last administered on 10/19/18at 12:29; Start 10/19/18 at 12:30; Stop 10/19/18 at 12:31; Status DC Heparin Sodium/ Dextrose 500 ml @ 0 mls/hr CONT PRN IV SEE I/O RECORD Last administered on 10/22/18at 02:37; Start 10/19/18 at 12:30 Heparin Sodium (Porcine) (Heparin Sodium) 3,000 unit PRN Q6HRS PRN IV FOR UFH LEVEL LESS THAN 0.2 Last administered on 10/19/18at 20:34; Start 10/19/18 at 12:30 Info (Anti-Coagulation Monitoring By Pharmacy) 1 each PRN DAILY PRN MC SEE COMMENTS Last administered on 10/21/18at 09:18; Start 10/19/18 at 12:30 Furosemide (Lasix) 60 mg 1X ONCE IVP Last administered on 10/19/18 13:00; Start 10/19/18 at 13:00; Stop 10/19/18 at 13:01; Status DC Ondansetron HCl (Zofran) 4 mg PRN Q8HRS PRN IV NAUSEA/VOMITING; Start 10/19/18 at 13:30; Stop 10/20/18 at 13:29; Status DC Morphine Sulfate (Morphine Sulfate) 2 mg PRN Q2HR PRN IV PAIN; Start 10/19/18 at 13:30; Stop 10/20/18 at 13:29; Status DC Nitroglycerin (Nitrostat) 0.4 mg PRN Q5MIN PRN SL CHEST PAIN; Start 10/19/18 at 13:30; Stop 10/20/18 at 13:29; Status DC Albuterol/ Ipratropium (Duoneb) 3 ml RTQID NEB ; Start 10/19/18 at 16:00; Stop 10/19/18 at 16:00; Status DC Amlodipine Besylate (Norvasc) 5 mg 1X ONCE PO Last administered on 10/19/18 13:53; Start 10/19/18 at 13:30; Stop 10/19/18 at 13:31; Status DC Nitroglycerin (Nitro-Bid Oint) 0.5 inch Q6HRS TP Last administered on 10/22/18 12:05; Start 10/19/18 at 14:00 Aspirin (Ecotrin) 81 mg DAILYWBKFT PO Last administered on 10/22/18 08:27; Start 10/19/18 at 14:00 Metoprolol Tartrate (Lopressor) 25 mg BID PO Last administered on 10/22/18 08:27; Start 10/19/18 at 14:00 Atorvastatin Calcium (Lipitor) 40 mg QHS PO Last administered on 10/21/18 21:42; Start 10/19/18 at 21:00 Sodium Chloride (Normal Saline Flush 3ml) 3 ml QSHIFT PRN IV AFTER MEDS AND BLOOD DRAWS; Start 10/19/18 at 15:15 Ondansetron HCl (Zofran) 4 mg PRN Q4HRS PRN IV NAUSEA/VOMITING Last administered on 10/22/18 02:09; Start 10/19/18 at 15:15 Acetaminophen (Tylenol) 650 mg PRN Q4HRS PRN PO TEMP OVER 100.4F OR MILD PAIN; Start 10/19/18 at 15:15 Al Hydroxide/Mg Hydroxide (Mylanta Plus Xs) 30 ml PRN DAILY PRN PO HEARTBURN / GAS; Start 10/19/18 at 15:15 Clonidine HCl (Catapres) 0.1 mg PRN Q6HRS PRN PO SBP>160 OR DBP>90 Last administered on 10/21/18 23:17; Start 10/19/18 at 15:15 Docusate Sodium (Colace) 100 mg PRN BID PRN PO CONSTIPATION Last administered on 10/21/18 23:21; Start 10/19/18 at 15:15 Albuterol/ Ipratropium (Duoneb) 3 ml Q4HRS NEB Last administered on 5/6/19at 11:46; Start 10/19/18 at 16:00 Guaifenesin (Robitussin) 200 mg PRN Q4HRS PRN PO COUGH; Start 10/19/18 at 15:15 Enoxaparin Sodium (Lovenox 40mg Syringe) 40 mg DAILY SQ ; Start 10/20/18 at 09:00; Stop 10/20/18 at 09:00; Status DC Sodium Bicarbonate (Sodium Bicarb Adult 8.4% Syr) 50 meq 1X ONCE IV Last administered on 10/19/18at 16:42; Start 10/19/18 at 16:30; Stop 10/19/18 at 16:33; Status DC Insulin Human Lispro (HumaLOG) 0-7 UNITS TIDWMEALS SQ Last administered on 10/22/18at 12:15; Start 10/19/18 at 18:00 Dextrose (Dextrose 50%-Water Syringe) 12.5 gm PRN Q15MIN PRN IV SEE COMMENTS; Start 10/19/18 at 18:00 Furosemide (Lasix) 40 mg Q8HRS IVP Last administered on 10/21/18at 06:22; Start 10/20/18 at 14:00; Stop 10/21/18 at 16:45; Status DC Amlodipine Besylate (Norvasc) 5 mg DAILY PO Last administered on 10/22/18at 08:27; Start 10/21/18 at 12:30 Tamsulosin HCl (Flomax) 0.4 mg QHS PO Last administered on 10/21/18 21:43; Start 10/21/18 at 21:00 Ropinirole HCl (Requip) 2 mg 1X ONCE PO Last administered on 10/22/18at 00:58; Start 10/22/18 at 01:00; Stop 10/22/18 at 01:01; Status DC Magnesium Sulfate 50 ml @ 25 mls/hr 1X ONCE IV Last administered on 10/22/18at 01:11; Start 10/22/18 at 01:00; Stop 10/22/18 at 02:59; Status DC Active Scripts Active Reported Metoprolol Tartrate 25 Mg Tablet 12.5 Mg PO QHS Fish Oil 1,000 mg Softgel ([place]-3S/Dha/Epa/Fish Oil) 1 Each Capsule 1 Each PO [place] (Patiromer Calcium Sorbitex) 8.4 Gm Powd.pack 8.4 Gm PO DAILY Vitamin D-3 (Cholecalciferol (Vitamin D3)) 2,000 Unit Tablet 5,000 Unit PO DAILY Aspirin 325 Mg Tablet 1 Tab PO DAILY Amlodipine Besylate 5 Mg Tablet 5 Mg PO DAILY Metoprolol Tartrate 25 Mg Tablet 1 Tab PO DAILY Atorvastatin Calcium 40 Mg Tablet 1 Tab PO QHS Suzanne Parra U-100 (Insulin Glargine,Hum.rec.anlog) 100 Unit/1 Ml Insuln.pen 35 Unit SQ DAILY Lisinopril 20 Mg Tablet 40 Mg PO DAILY Vitals/I & O Vital Sign - Last 24 Hours 10/21/18 10/21/18 10/21/18 10/21/18 12:30 16:00 16:00 16:15 Temp 98.0 98.0 Pulse 65 58 B/P (MAP) 160/62 172/75 (107) Pulse Ox 98 O2 Delivery Nasal Cannula Nasal Cannula Nasal Cannula O2 Flow Rate 5.0 5.0 2.0 10/21/18 10/21/18 10/21/18 10/21/18 16:30 16:40 19:50 20:00 Temp 98.8 98.8 Pulse 67 65 66 Resp 22 B/P (MAP) 134/62 161/62 169/73 (105) Pulse Ox 96 O2 Delivery Nasal Cannula Nasal Cannula O2 Flow Rate 5.0 5.0 10/21/18 10/21/18 10/21/18 10/21/18 20:27 21:43 23:10 23:17 Temp 98.4 98.4 Pulse 68 75 71 Resp 22 B/P (MAP) 170/79 205/ (129) Pulse Ox 96 95 O2 Delivery Nasal Cannula Nasal Cannula O2 Flow Rate 2.0 5.0 10/21/18 10/21/18 10/22/18 10/22/18 23:22 23:43 01:58 03:20 Temp 97.4 97.4 Pulse 71 64 77 Resp 22 B/P (MAP) 116/54 (74) 154/68 (96) Pulse Ox 97 O2 Delivery Nasal Cannula Nasal Cannula O2 Flow Rate 2.0 5.0 10/22/18 10/22/18 10/22/18 10/22/18 05:44 07:00 07:50 08:00 Temp 97.7 97.7 Pulse 72 65 Resp 18 B/P (MAP) 138/65 143/65 (91) Pulse Ox 95 95 O2 Delivery Nasal Cannula Nasal Cannula Nasal Cannula O2 Flow Rate 5.0 2.0 2.0 10/22/18 10/22/18 10/22/18 10/22/18 08:27 08:27 11:00 11:46 Temp 97.7 97.7 Pulse 74 74 55 Resp 18 B/P (MAP) 143/65 143/65 154/69 (97) Pulse Ox 98 99 O2 Delivery Nasal Cannula Nasal Cannula O2 Flow Rate 5.0 2.0 10/22/18 12:05 Pulse 55 B/P (MAP) 154/69 Intake and Output 10/21/18 10/21/18 10/22/18 15:00 23:00 07:00 Intake Total 890 ml 582 ml 100 ml Output Total 1075 ml 450 ml 675 ml Balance -185 ml 132 ml -575 ml FELA KANG III DO October 22, 2018 12:26
[2018-10-22] MEDS: ACETAMINOPHEN 325 MG TABLET. PO PRN (14:10)
[2018-10-22] MEDS: TAMSULOSIN 0.4 MG CAP.ER.24H. PO SCH (22:08)
[2018-10-22] MEDS: cloNIDine HCL 0.1 MG TABLET PO PRN (22:10)
[2018-10-22] MEDS: ATORVASTATIN CALCIUM 40 MG TABLET. PO SCH (22:10)
[2018-10-22] MEDS: INSULIN GLARGINE 300 UNITS/3 ML INSULN.PEN. SQ SCH (22:18)
[2018-10-23] VITALS (7 sets, daily range): BP systolic 138–190; BP diastolic 63–79
[2018-10-23] MEDS: NITROGLYCERIN OINT 1 GM PACKET. TP SCH ×4 (00:44→17:20)
[2018-10-23] MEDS: IPRATRPIUM/ALBUTEROL 0.5/2.5MG 3 ML NEBU. NEB SCH ×5 (03:26→19:30)
[2018-10-23 03:33] LABS: BASO % 0 % (0-3); EOS # 0.2 x10^3/uL (0.0-0.7); EOS % 3 % (0-3); HEMATOCRIT 29.3 % (39.0-53.0); HEMOGLOBIN 9.5 g/dL (13.0-17.5); LYMPH # 1.4 x10^3/uL (1.0-4.8); LYMPH % 19 % (24-48); MEAN CORPUSCULAR HEMOGLOBIN 29 pg (25-35); MEAN CORPUSCULAR HGB CONC 33 g/dL (31-37); MEAN CORPUSCULAR VOLUME 88 fL (79-100); MONO # 0.7 x10^3/uL (0.0-1.1); MONO % 9 % (0-9); NEUT # 5.2 x10^3uL (1.8-7.7); NEUT % 69 % (31-73); PLATELET COUNT 250 x10^3/uL (140-400); RED BLOOD COUNT 3.35 x10^6/uL (4.30-5.70); RED CELL DISTRIBUTION WIDTH 13.7 % (11.5-14.5); WHITE BLOOD COUNT 7.5 x10^3/uL (4.0-11.0)
[2018-10-23 03:39] LABS: CREATININE 3.3 mg/dL (0.7-1.3); GFR 18.2; POTASSIUM 4.5 mmol/L (3.5-5.1)
[2018-10-23] MEDS: INSULIN LISPRO 300 UNITS/3 ML INSULN.PEN. SQ SCH ×3 (08:00→17:28)
[2018-10-23] MEDS ORDERED: CLOPIDOGREL BISULFATE 75 MG TABLET PO SCH (08:00)
[2018-10-23] MEDS: METOPROLOL TART IMMED RELEASE 25 MG TABLET. PO SCH ×2 (08:57→21:09)
[2018-10-23] MEDS: amLODIPine BESYLATE 5 MG TABLET PO SCH (08:57)
[2018-10-23] MEDS: ASPIRIN ENTERIC COATED 81 MG TABLET.DR. PO SCH (08:57)
--- NOTE | 2018-10-23 09:11 | PDOC ---
PULMONARY PROGRESS NOTES Subjective PT NOT SOA Vitals Vital Signs Date Time Temp Pulse Resp B/P (MAP) Pulse Ox O2 Delivery O2 Flow Rate FiO2 10/23/18 08:57 78 168/73 10/23/18 07:16 92 Nasal Cannula 3.0 10/23/18 07:00 97.5 16 97.5 ROS: No Nausea, No Abdominal Pain, No Increase Cough General: Alert, No acute distress Lungs: Clear Cardiovascular: S1 Abdomen: Soft Neuro Exam: Alert Extremities: Other (1+edema) Labs Laboratory Tests Test 10/21/18 10:00 10/21/18 17:10 10/21/18 17:11 10/21/18 20:52 Heparin Anti-Xa Act, Unfractionated 0.64 IU/mL (0.30-0.70) 0.22 IU/mL (0.30-0.70) Glucose (Fingerstick) 151 mg/dL (70-99) 264 mg/dL (70-99) Test 10/22/18 00:50 10/22/18 08:04 10/22/18 08:05 10/22/18 11:23 White Blood Count 7.8 x10^3/uL (4.0-11.0) Red Blood Count 3.54 x10^6/uL (4.30-5.70) Hemoglobin 10.1 g/dL (13.0-17.5) Hematocrit 31.2 % (39.0-53.0) Mean Corpuscular Volume 88 fL (79-100) Mean Corpuscular Hemoglobin 29 pg (25-35) Mean Corpuscular Hemoglobin Concent 33 g/dL (31-37) Red Cell Distribution Width 14.2 % (11.5-14.5) Platelet Count 264 x10^3/uL (140-400) Heparin Anti-Xa Act, Unfractionated 0.67 IU/mL (0.30-0.70) 0.69 IU/mL (0.30-0.70) Sodium Level 137 mmol/L (136-145) Potassium Level 4.1 mmol/L (3.5-5.1) Chloride Level 101 mmol/L (98-107) Carbon Dioxide Level 27 mmol/L (21-32) Anion Gap 9 (6-14) Blood Urea Nitrogen 62 mg/dL (8-26) Creatinine 3.2 mg/dL (0.7-1.3) Estimated GFR (Cockcroft-Gault) 18.9 Glucose Level 222 mg/dL (70-99) Calcium Level 8.2 mg/dL (8.5-10.1) Glucose (Fingerstick) 222 mg/dL (70-99) 235 mg/dL (70-99) Magnesium Level 2.1 mg/dL (1.8-2.4) Test 10/22/18 14:00 10/22/18 16:53 10/22/18 20:25 10/23/18 03:00 Heparin Anti-Xa Act, Unfractionated 0.54 IU/mL (0.30-0.70) Glucose (Fingerstick) 158 mg/dL (70-99) 207 mg/dL (70-99) White Blood Count 7.5 x10^3/uL (4.0-11.0) Red Blood Count 3.35 x10^6/uL (4.30-5.70) Hemoglobin 9.5 g/dL (13.0-17.5) Hematocrit 29.3 % (39.0-53.0) Mean Corpuscular Volume 88 fL (79-100) Mean Corpuscular Hemoglobin 29 pg (25-35) Mean Corpuscular Hemoglobin Concent 33 g/dL (31-37) Red Cell Distribution Width 13.7 % (11.5-14.5) Platelet Count 250 x10^3/uL (140-400) Neutrophils (%) (Auto) 69 % (31-73) Lymphocytes (%) (Auto) 19 % (24-48) Monocytes (%) (Auto) 9 % (0-9) Eosinophils (%) (Auto) 3 % (0-3) Basophils (%) (Auto) 0 % (0-3) Neutrophils # (Auto) 5.2 x10^3uL (1.8-7.7) Lymphocytes # (Auto) 1.4 x10^3/uL (1.0-4.8) Monocytes # (Auto) 0.7 x10^3/uL (0.0-1.1) Eosinophils # (Auto) 0.2 x10^3/uL (0.0-0.7) Basophils # (Auto) 0.0 x10^3/uL (0.0-0.2) Sodium Level 134 mmol/L (136-145) Potassium Level 4.5 mmol/L (3.5-5.1) Chloride Level 99 mmol/L (98-107) Carbon Dioxide Level 28 mmol/L (21-32) Anion Gap 7 (6-14) Blood Urea Nitrogen 66 mg/dL (8-26) Creatinine 3.3 mg/dL (0.7-1.3) Estimated GFR (Cockcroft-Gault) 18.2 Glucose Level 131 mg/dL (70-99) Calcium Level 8.0 mg/dL (8.5-10.1) Test 10/23/18 08:00 Glucose (Fingerstick) 110 mg/dL (70-99) Laboratory Tests Test 10/22/18 11:23 10/22/18 14:00 10/22/18 16:53 10/22/18 20:25 Glucose (Fingerstick) 235 mg/dL (70-99) 158 mg/dL (70-99) 207 mg/dL (70-99) Heparin Anti-Xa Act, Unfractionated 0.54 IU/mL (0.30-0.70) Test 10/23/18 03:00 10/23/18 08:00 White Blood Count 7.5 x10^3/uL (4.0-11.0) Red Blood Count 3.35 x10^6/uL (4.30-5.70) Hemoglobin 9.5 g/dL (13.0-17.5) Hematocrit 29.3 % (39.0-53.0) Mean Corpuscular Volume 88 fL (79-100) Mean Corpuscular Hemoglobin 29 pg (25-35) Mean Corpuscular Hemoglobin Concent 33 g/dL (31-37) Red Cell Distribution Width 13.7 % (11.5-14.5) Platelet Count 250 x10^3/uL (140-400) Neutrophils (%) (Auto) 69 % (31-73) Lymphocytes (%) (Auto) 19 % (24-48) Monocytes (%) (Auto) 9 % (0-9) Eosinophils (%) (Auto) 3 % (0-3) Basophils (%) (Auto) 0 % (0-3) Neutrophils # (Auto) 5.2 x10^3uL (1.8-7.7) Lymphocytes # (Auto) 1.4 x10^3/uL (1.0-4.8) Monocytes # (Auto) 0.7 x10^3/uL (0.0-1.1) Eosinophils # (Auto) 0.2 x10^3/uL (0.0-0.7) Basophils # (Auto) 0.0 x10^3/uL (0.0-0.2) Sodium Level 134 mmol/L (136-145) Potassium Level 4.5 mmol/L (3.5-5.1) Chloride Level 99 mmol/L (98-107) Carbon Dioxide Level 28 mmol/L (21-32) Anion Gap 7 (6-14) Blood Urea Nitrogen 66 mg/dL (8-26) Creatinine 3.3 mg/dL (0.7-1.3) Estimated GFR (Cockcroft-Gault) 18.2 Glucose Level 131 mg/dL (70-99) Calcium Level 8.0 mg/dL (8.5-10.1) Glucose (Fingerstick) 110 mg/dL (70-99) Medications Active Scripts Medications Dose Route/Sig Max Daily Dose Days Date Category Metoprolol Tartrate 25 Mg Tablet 12.5 Mg PO QHS 10/19/18 Reported Fish Oil 1,000 mg Softgel ([place]-3S/Dha/Epa/Fish Oil) 1 Each Capsule 1 Each PO 10/19/18 Reported [place] (Patiromer Calcium Sorbitex) 8.4 Gm Powd.pack 8.4 Gm PO DAILY 10/19/18 Reported Vitamin D-3 (Cholecalciferol (Vitamin D3)) 2,000 Unit Tablet 5,000 Unit PO DAILY 10/19/18 Reported Aspirin 325 Mg Tablet 1 Tab PO DAILY 10/19/18 Reported Amlodipine Besylate 5 Mg Tablet 5 Mg PO DAILY 10/19/18 Reported Metoprolol Tartrate 25 Mg Tablet 1 Tab PO DAILY 10/19/18 Reported Atorvastatin Calcium 40 Mg Tablet 1 Tab PO QHS 10/19/18 Reported Suzanne Parra U-100 (Insulin Glargine,Hum.rec.anlog) 100 Unit/1 Ml Insuln.pen 35 Unit SQ DAILY 10/19/18 Reported Lisinopril 20 Mg Tablet 40 Mg PO DAILY 12/16/13 Reported Comments cxr 5/6 IMPROVED RIGHT EFFUSION/ SMALL- MODERATE LEFT EFFUSION Impression . 1. Acute hypoxic respiratory failure secondary to suspected [id number] diastolic heart failure and bilateral pleural effusions. Clinically, less likely thromboembolic disease. His venous Dopplers of the lower extremities were negative for DVT. Could not lay flat for V/Q/. No need for further work up 2. History of coronary artery disease, 3-vessel disease with percutaneous coronary intervention of circumflex in the past and now with a non-ST myocardial infarction. 3. Suspected obstructive sleep apnea. 4. Chronic kidney disease, which makes it difficult to diurese. CT CHEST IMPRESSION: 1. Small to moderate bilateral pleural effusions. 2. Bilateral infiltrates/atelectasis. 3. Right adrenal mass. 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 Plan . RESP STATUS IS COMPENSATED D/C SOON NO NEED FOR THORACENTESIS DIURESE OUT PT SLEEP STUDY FOLLOW CARD INPUT NHI FERNÁNDEZ MD October 23, 2018 09:11
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
--- NOTE | 2018-10-23 10:18 | PDOC ---
CARDIO Progress Notes Date and Time Date of Service 10/23/2018 Time of Evaluation 0940 Subjective Subjective: No Chest Pain, No shortness of breath, No Palpitations Vitals Vitals Vital Signs Date Time Temp Pulse Resp B/P (MAP) Pulse Ox O2 Delivery O2 Flow Rate FiO2 10/23/18 08:57 78 168/73 10/23/18 08:00 Nasal Cannula 3.0 10/23/18 07:16 92 10/23/18 07:00 97.5 16 97.5 Weight Weight [ ] Input and Output Intake and Output Intake and Output 10/23/18 07:00 Intake Total 1410 ml Output Total 700 ml Balance 710 ml Intake Oral 1410 ml Output Urine Total 700 ml Laboratory Labs Laboratory Tests Test 10/22/18 11:23 10/22/18 14:00 10/22/18 16:53 10/22/18 20:25 Glucose (Fingerstick) 235 mg/dL (70-99) 158 mg/dL (70-99) 207 mg/dL (70-99) Heparin Anti-Xa Act, Unfractionated 0.54 IU/mL (0.30-0.70) Test 10/23/18 03:00 10/23/18 08:00 White Blood Count 7.5 x10^3/uL (4.0-11.0) Red Blood Count 3.35 x10^6/uL (4.30-5.70) Hemoglobin 9.5 g/dL (13.0-17.5) Hematocrit 29.3 % (39.0-53.0) Mean Corpuscular Volume 88 fL (79-100) Mean Corpuscular Hemoglobin 29 pg (25-35) Mean Corpuscular Hemoglobin Concent 33 g/dL (31-37) Red Cell Distribution Width 13.7 % (11.5-14.5) Platelet Count 250 x10^3/uL (140-400) Neutrophils (%) (Auto) 69 % (31-73) Lymphocytes (%) (Auto) 19 % (24-48) Monocytes (%) (Auto) 9 % (0-9) Eosinophils (%) (Auto) 3 % (0-3) Basophils (%) (Auto) 0 % (0-3) Neutrophils # (Auto) 5.2 x10^3uL (1.8-7.7) Lymphocytes # (Auto) 1.4 x10^3/uL (1.0-4.8) Monocytes # (Auto) 0.7 x10^3/uL (0.0-1.1) Eosinophils # (Auto) 0.2 x10^3/uL (0.0-0.7) Basophils # (Auto) 0.0 x10^3/uL (0.0-0.2) Sodium Level 134 mmol/L (136-145) Potassium Level 4.5 mmol/L (3.5-5.1) Chloride Level 99 mmol/L (98-107) Carbon Dioxide Level 28 mmol/L (21-32) Anion Gap 7 (6-14) Blood Urea Nitrogen 66 mg/dL (8-26) Creatinine 3.3 mg/dL (0.7-1.3) Estimated GFR (Cockcroft-Gault) 18.2 Glucose Level 131 mg/dL (70-99) Calcium Level 8.0 mg/dL (8.5-10.1) Glucose (Fingerstick) 110 mg/dL (70-99) Review of Systems Constitutional: yes: weakness, alert, oriented Ears/Nose/Throat: Yes: no symptom reported Pulmonary: Yes dyspnea Cardiovascular: Yes no symptom reported Gastrointestional: Yes: constipation Genitourinary: Yes: no symptom reported Musculoskeletal: Yes: muscle stiffness Skin: Yes no symptom reported Psychiatric/Neurological: Yes: no symptom reported Endocrine: Yes: no symptom reported Physical Exam HEENT: Neck Supple W Full Motion Chest: Symmetric LUNGS: Other (faint crackles) Heart: S1S2, RRR (SR), no murmurs Abdomen: Soft N/T, Other (obese) Extremities: Other (1+ bilateral LE edema ) Neurology: alert, oriented, follow commands Assessment Assessment 1. NSTEMI: LBBB, Trop peak at 1.6. EF nml. Echocardiogram with intact LV systolic function. CP free. 2. Acute diastolic CHF/pleural effusion; appears compensated 3. CAD; PCI 3 stents in the past. see above 4. HTN: controlled 5. Hyperlipidemia 6. DM2 7. VIN on CKD: BUN/Cr at 65/3.3. Nephrology following 8. Morbid obesity 9. Noted hypoxia: mouth breather 84% while asleep and better after waking up wi th O2 supplementation. Recommendations 1. Continue ASA/Plavix. If potential plans for any HD then may hold plavix. 2. Ischemic workup pending renal function. 3. Lasix PRN 4. Holding ACEi 5. Continue with secondary prevention. 6. Will need outpt DEE DEE workup 7. Supportive care. KARINA NUNEZ [employer] SERVICE MANAGER October 23, 2018 10:18
--- NOTE | 2018-10-23 10:30 | PDOC ---
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 Obesity Tobacco Abuse Hyperlipidemia HTN BPH Acute hypoxic respiratory failure - 2/2 [id number] diastolic heart failure and bilateral pleural effusions Coronary artery disease s/p 3-vessel disease with percutaneous coronary intervention of circumflex in the past History of Present Illness History of Present Illness Patient seen and examined Discussed with nurse Patient well appearing Cr elevated so temporarily holding diuretics, Beach in place with adequate output, Patient wants to remove Beach Patient Complains of R arm pain that occurred when he was dropped during transport from CT Vitals Vitals Vital Signs Date Time Temp Pulse Resp B/P (MAP) Pulse Ox O2 Delivery O2 Flow Rate FiO2 10/23/18 08:57 78 168/73 10/23/18 08:00 Nasal Cannula 3.0 10/23/18 07:16 92 10/23/18 07:00 97.5 16 97.5 Physical Exam General: Alert, Oriented X3, Cooperative, No acute distress Heart: Regular rate, Normal S1, Normal S2 Lungs: Clear Abdomen: Normal bowel sounds, Soft Extremities: No clubbing, No cyanosis Skin: No breakdown, Other (Severe right arm bruising noted) Labs LABS Laboratory Tests Test 10/22/18 11:23 10/22/18 14:00 10/22/18 16:53 10/22/18 20:25 Glucose (Fingerstick) 235 mg/dL (70-99) 158 mg/dL (70-99) 207 mg/dL (70-99) Heparin Anti-Xa Act, Unfractionated 0.54 IU/mL (0.30-0.70) Test 10/23/18 03:00 10/23/18 08:00 White Blood Count 7.5 x10^3/uL (4.0-11.0) Red Blood Count 3.35 x10^6/uL (4.30-5.70) Hemoglobin 9.5 g/dL (13.0-17.5) Hematocrit 29.3 % (39.0-53.0) Mean Corpuscular Volume 88 fL (79-100) Mean Corpuscular Hemoglobin 29 pg (25-35) Mean Corpuscular Hemoglobin Concent 33 g/dL (31-37) Red Cell Distribution Width 13.7 % (11.5-14.5) Platelet Count 250 x10^3/uL (140-400) Neutrophils (%) (Auto) 69 % (31-73) Lymphocytes (%) (Auto) 19 % (24-48) Monocytes (%) (Auto) 9 % (0-9) Eosinophils (%) (Auto) 3 % (0-3) Basophils (%) (Auto) 0 % (0-3) Neutrophils # (Auto) 5.2 x10^3uL (1.8-7.7) Lymphocytes # (Auto) 1.4 x10^3/uL (1.0-4.8) Monocytes # (Auto) 0.7 x10^3/uL (0.0-1.1) Eosinophils # (Auto) 0.2 x10^3/uL (0.0-0.7) Basophils # (Auto) 0.0 x10^3/uL (0.0-0.2) Sodium Level 134 mmol/L (136-145) Potassium Level 4.5 mmol/L (3.5-5.1) Chloride Level 99 mmol/L (98-107) Carbon Dioxide Level 28 mmol/L (21-32) Anion Gap 7 (6-14) Blood Urea Nitrogen 66 mg/dL (8-26) Creatinine 3.3 mg/dL (0.7-1.3) Estimated GFR (Cockcroft-Gault) 18.2 Glucose Level 131 mg/dL (70-99) Calcium Level 8.0 mg/dL (8.5-10.1) Glucose (Fingerstick) 110 mg/dL (70-99) Review of Systems Review of Systems Complains of mid R arm pain over biceps Denies N/V Assessment and Plan Assessmemt and Plan Problems Medical Problems: (1) Acute on chronic renal insufficiency Status: Acute (2) CHF (congestive heart failure) Status: Acute (3) Hypoxemia Status: Acute (4) NSTEMI (non-ST elevated myocardial infarction) Status: Acute Assessment: NSTEMI (non-ST elevated myocardial infarction) CHF (congestive heart failure) 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 Labs Laboratory Tests Test 10/21/18 17:10 10/21/18 17:11 10/21/18 20:52 10/22/18 00:50 Heparin Anti-Xa Act, Unfractionated 0.22 IU/mL (0.30-0.70) 0.67 IU/mL (0.30-0.70) Glucose (Fingerstick) 151 mg/dL (70-99) 264 mg/dL (70-99) White Blood Count 7.8 x10^3/uL (4.0-11.0) Red Blood Count 3.54 x10^6/uL (4.30-5.70) Hemoglobin 10.1 g/dL (13.0-17.5) Hematocrit 31.2 % (39.0-53.0) Mean Corpuscular Volume 88 fL (79-100) Mean Corpuscular Hemoglobin 29 pg (25-35) Mean Corpuscular Hemoglobin Concent 33 g/dL (31-37) Red Cell Distribution Width 14.2 % (11.5-14.5) Platelet Count 264 x10^3/uL (140-400) Sodium Level 137 mmol/L (136-145) Potassium Level 4.1 mmol/L (3.5-5.1) Chloride Level 101 mmol/L (98-107) Carbon Dioxide Level 27 mmol/L (21-32) Anion Gap 9 (6-14) Blood Urea Nitrogen 62 mg/dL (8-26) Creatinine 3.2 mg/dL (0.7-1.3) Estimated GFR (Cockcroft-Gault) 18.9 Glucose Level 222 mg/dL (70-99) Calcium Level 8.2 mg/dL (8.5-10.1) Test 10/22/18 08:04 10/22/18 08:05 10/22/18 11:23 10/22/18 14:00 Glucose (Fingerstick) 222 mg/dL (70-99) 235 mg/dL (70-99) Heparin Anti-Xa Act, Unfractionated 0.69 IU/mL (0.30-0.70) 0.54 IU/mL (0.30-0.70) Magnesium Level 2.1 mg/dL (1.8-2.4) Test 10/22/18 16:53 10/22/18 20:25 10/23/18 03:00 10/23/18 08:00 Glucose (Fingerstick) 158 mg/dL (70-99) 207 mg/dL (70-99) 110 mg/dL (70-99) White Blood Count 7.5 x10^3/uL (4.0-11.0) Red Blood Count 3.35 x10^6/uL (4.30-5.70) Hemoglobin 9.5 g/dL (13.0-17.5) Hematocrit 29.3 % (39.0-53.0) Mean Corpuscular Volume 88 fL (79-100) Mean Corpuscular Hemoglobin 29 pg (25-35) Mean Corpuscular Hemoglobin Concent 33 g/dL (31-37) Red Cell Distribution Width 13.7 % (11.5-14.5) Platelet Count 250 x10^3/uL (140-400) Neutrophils (%) (Auto) 69 % (31-73) Lymphocytes (%) (Auto) 19 % (24-48) Monocytes (%) (Auto) 9 % (0-9) Eosinophils (%) (Auto) 3 % (0-3) Basophils (%) (Auto) 0 % (0-3) Neutrophils # (Auto) 5.2 x10^3uL (1.8-7.7) Lymphocytes # (Auto) 1.4 x10^3/uL (1.0-4.8) Monocytes # (Auto) 0.7 x10^3/uL (0.0-1.1) Eosinophils # (Auto) 0.2 x10^3/uL (0.0-0.7) Basophils # (Auto) 0.0 x10^3/uL (0.0-0.2) Sodium Level 134 mmol/L (136-145) Potassium Level 4.5 mmol/L (3.5-5.1) Chloride Level 99 mmol/L (98-107) Carbon Dioxide Level 28 mmol/L (21-32) Anion Gap 7 (6-14) Blood Urea Nitrogen 66 mg/dL (8-26) Creatinine 3.3 mg/dL (0.7-1.3) Estimated GFR (Cockcroft-Gault) 18.2 Glucose Level 131 mg/dL (70-99) Calcium Level 8.0 mg/dL (8.5-10.1) Laboratory Tests Test 10/22/18 11:23 10/22/18 14:00 10/22/18 16:53 10/22/18 20:25 Glucose (Fingerstick) 235 mg/dL (70-99) 158 mg/dL (70-99) 207 mg/dL (70-99) Heparin Anti-Xa Act, Unfractionated 0.54 IU/mL (0.30-0.70) Test 10/23/18 03:00 10/23/18 08:00 White Blood Count 7.5 x10^3/uL (4.0-11.0) Red Blood Count 3.35 x10^6/uL (4.30-5.70) Hemoglobin 9.5 g/dL (13.0-17.5) Hematocrit 29.3 % (39.0-53.0) Mean Corpuscular Volume 88 fL (79-100) Mean Corpuscular Hemoglobin 29 pg (25-35) Mean Corpuscular Hemoglobin Concent 33 g/dL (31-37) Red Cell Distribution Width 13.7 % (11.5-14.5) Platelet Count 250 x10^3/uL (140-400) Neutrophils (%) (Auto) 69 % (31-73) Lymphocytes (%) (Auto) 19 % (24-48) Monocytes (%) (Auto) 9 % (0-9) Eosinophils (%) (Auto) 3 % (0-3) Basophils (%) (Auto) 0 % (0-3) Neutrophils # (Auto) 5.2 x10^3uL (1.8-7.7) Lymphocytes # (Auto) 1.4 x10^3/uL (1.0-4.8) Monocytes # (Auto) 0.7 x10^3/uL (0.0-1.1) Eosinophils # (Auto) 0.2 x10^3/uL (0.0-0.7) Basophils # (Auto) 0.0 x10^3/uL (0.0-0.2) Sodium Level 134 mmol/L (136-145) Potassium Level 4.5 mmol/L (3.5-5.1) Chloride Level 99 mmol/L (98-107) Carbon Dioxide Level 28 mmol/L (21-32) Anion Gap 7 (6-14) Blood Urea Nitrogen 66 mg/dL (8-26) Creatinine 3.3 mg/dL (0.7-1.3) Estimated GFR (Cockcroft-Gault) 18.2 Glucose Level 131 mg/dL (70-99) Calcium Level 8.0 mg/dL (8.5-10.1) Glucose (Fingerstick) 110 mg/dL (70-99) Medications Current Medications Albuterol/ Ipratropium (Duoneb) 3 ml 1X ONCE NEB Last administered on 10/19/18at 12:00; Start 10/19/18 at 11:45; Stop 10/19/18 at 11:46; Status DC Heparin Sodium (Porcine) (Heparin Sodium) 4,000 unit 1X ONCE IV Last administered on 10/19/18at 12:29; Start 10/19/18 at 12:30; Stop 10/19/18 at 12:31; Status DC Heparin Sodium/ Dextrose 500 ml @ 0 mls/hr CONT PRN IV SEE I/O RECORD Last administered on 10/22/18at 02:37; Start 10/19/18 at 12:30; Stop 10/22/18 at 15:06; Status DC Heparin Sodium (Porcine) (Heparin Sodium) 3,000 unit PRN Q6HRS PRN IV FOR UFH LEVEL LESS THAN 0.2 Last administered on 10/19/18at 20:34; Start 10/19/18 at 12:30; Stop 10/22/18 at 15:06; Status DC Info (Anti-Coagulation Monitoring By Pharmacy) 1 each PRN DAILY PRN MC SEE COMMENTS Last administered on 10/21/18 09:18; Start 10/19/18 at 12:30; Stop 10/23/18 at 07:33; Status DC Furosemide (Lasix) 60 mg 1X ONCE IVP Last administered on 10/19/18at 13:00; Start 10/19/18 at 13:00; Stop 10/19/18 at 13:01; Status DC Ondansetron HCl (Zofran) 4 mg PRN Q8HRS PRN IV NAUSEA/VOMITING; Start 10/19/18 at 13:30; Stop 10/20/18 at 13:29; Status DC Morphine Sulfate (Morphine Sulfate) 2 mg PRN Q2HR PRN IV PAIN; Start 10/19/18 at 13:30; Stop 10/20/18 at 13:29; Status DC Nitroglycerin (Nitrostat) 0.4 mg PRN Q5MIN PRN SL CHEST PAIN; Start 10/19/18 at 13:30; Stop 10/20/18 at 13:29; Status DC Albuterol/ Ipratropium (Duoneb) 3 ml RTQID NEB ; Start 10/19/18 at 16:00; Stop 10/19/18 at 16:00; Status DC Amlodipine Besylate (Norvasc) 5 mg 1X ONCE PO Last administered on 10/19/18 13:53; Start 10/19/18 at 13:30; Stop 10/19/18 at 13:31; Status DC Nitroglycerin (Nitro-Bid Oint) 0.5 inch Q6HRS TP Last administered on 10/23/18 05:53; Start 10/19/18 at 14:00 Aspirin (Ecotrin) 81 mg DAILYWBKFT PO Last administered on 10/23/18 08:57; Start 10/19/18 at 14:00 Metoprolol Tartrate (Lopressor) 25 mg BID PO Last administered on 10/23/18 08:57; Start 10/19/18 at 14:00 Atorvastatin Calcium (Lipitor) 40 mg QHS PO Last administered on 10/22/18at 22:10; Start 10/19/18 at 21:00 Sodium Chloride (Normal Saline Flush 3ml) 3 ml QSHIFT PRN IV AFTER MEDS AND BLOOD DRAWS; Start 10/19/18 at 15:15 Ondansetron HCl (Zofran) 4 mg PRN Q4HRS PRN IV NAUSEA/VOMITING Last administered on 10/22/18 02:09; Start 10/19/18 at 15:15 Acetaminophen (Tylenol) 650 mg PRN Q4HRS PRN PO TEMP OVER 100.4F OR MILD PAIN Last administered on 10/22/18at 14:10; Start 10/19/18 at 15:15 Al Hydroxide/Mg Hydroxide (Mylanta Plus Xs) 30 ml PRN DAILY PRN PO HEARTBURN / GAS; Start 10/19/18 at 15:15 Clonidine HCl (Catapres) 0.1 mg PRN Q6HRS PRN PO SBP>160 OR DBP>90 Last administered on 10/22/18 22:10; Start 10/19/18 at 15:15 Docusate Sodium (Colace) 100 mg PRN BID PRN PO CONSTIPATION Last administered on 10/21/18 23:21; Start 10/19/18 at 15:15 Albuterol/ Ipratropium (Duoneb) 3 ml Q4HRS NEB Last administered on 10/23/18 07:15; Start 10/19/18 at 16:00 Guaifenesin (Robitussin) 200 mg PRN Q4HRS PRN PO COUGH; Start 10/19/18 at 15:15 Enoxaparin Sodium (Lovenox 40mg Syringe) 40 mg DAILY SQ ; Start 10/20/18 at 09:00; Stop 10/20/18 at 09:00; Status DC Sodium Bicarbonate (Sodium Bicarb Adult 8.4% Syr) 50 meq 1X ONCE IV Last a dministered on 10/19/18at 16:42; Start 10/19/18 at 16:30; Stop 10/19/18 at 16:33; Status DC Insulin Human Lispro (HumaLOG) 0-7 UNITS TIDWMEALS SQ Last administered on 10/22/18 17:33; Start 10/19/18 at 18:00 Dextrose (Dextrose 50%-Water Syringe) 12.5 gm PRN Q15MIN PRN IV SEE COMMENTS; Start 10/19/18 at 18:00 Furosemide (Lasix) 40 mg Q8HRS IVP Last administered on 10/21/18 06:22; Start 10/20/18 at 14:00; Stop 10/21/18 at 16:45; Status DC Amlodipine Besylate (Norvasc) 5 mg DAILY PO Last administered on 10/23/18at 08:57; Start 10/21/18 at 12:30 Tamsulosin HCl (Flomax) 0.4 mg QHS PO Last administered on 10/22/18 22:08; Start 10/21/18 at 21:00 Ropinirole HCl (Requip) 2 mg 1X ONCE PO Last administered on 10/22/18at 00:58; Start 10/22/18 at 01:00; Stop 10/22/18 at 01:01; Status DC Magnesium Sulfate 50 ml @ 25 mls/hr 1X ONCE IV Last administered on 10/22/18at 01:11; Start 10/22/18 at 01:00; Stop 10/22/18 at 02:59; Status DC Clopidogrel Bisulfate (Plavix) 75 mg DAILYWBKFT PO Last administered on 10/23/18at 08:56; Start 10/23/18 at 08:00 Insulin Glargine (Lantus) 35 units QHS SQ Last administered on 10/22/18at 22:18; Start 10/22/18 at 21:00 Active Scripts Active Reported Metoprolol Tartrate 25 Mg Tablet 12.5 Mg PO QHS Fish Oil 1,000 mg Softgel (Waskish-3S/Dha/Epa/Fish Oil) 1 Each Capsule 1 Each PO Veltassa (Patiromer Calcium Sorbitex) 8.4 Gm Powd.pack 8.4 Gm PO DAILY Vitamin D-3 (Cholecalciferol (Vitamin D3)) 2,000 Unit Tablet 5,000 Unit PO DAILY Aspirin 325 Mg Tablet 1 Tab PO DAILY Amlodipine Besylate 5 Mg Tablet 5 Mg PO DAILY Metoprolol Tartrate 25 Mg Tablet 1 Tab PO DAILY Atorvastatin Calcium 40 Mg Tablet 1 Tab PO QHS Suzanne Parra U-100 (Insulin Glargine,Hum.rec.anlog) 100 Unit/1 Ml Insuln.pen 35 Unit SQ DAILY Lisinopril 20 Mg Tablet 40 Mg PO DAILY Vitals/I & O Vital Sign - Last 24 Hours 10/22/18 10/22/18 10/22/18 10/22/18 11:00 11:46 12:05 15:00 Temp 97.7 97.5 97.7 97.5 Pulse 55 55 61 Resp 18 18 B/P (MAP) 154/69 (97) 154/69 143/63 (89) Pulse Ox 98 99 97 O2 Delivery Nasal Cannula Nasal Cannula Nasal Cannula O2 Flow Rate 5.0 2.0 5.0 10/22/18 10/22/18 10/22/18 10/22/18 15:42 17:27 19:34 19:59 Temp 98.1 98.1 Pulse 61 75 Resp 18 B/P (MAP) 143/63 186/81 (116) Pulse Ox 97 98 94 O2 Delivery Nasal Cannula Nasal Cannula Nasal Cannula O2 Flow Rate 2.0 2.0 3.0 10/22/18 10/22/18 10/22/18 10/22/18 20:00 22:09 22:10 23:00 Temp 98.2 98.2 Pulse 66 75 73 Resp 18 B/P (MAP) 185/81 186/81 141/65 (90) Pulse Ox 96 O2 Delivery Nasal Cannula Nasal Cannula O2 Flow Rate 3.0 3.0 10/23/18 10/23/18 10/23/18 10/23/18 00:44 02:41 05:53 07:00 Temp 97.9 97.5 97.9 97.5 Pulse 73 56 56 59 Resp 16 16 B/P (MAP) 141/65 139/64 (89) 139/64 168/73 (104) Pulse Ox 93 O2 Delivery Nasal Cannula Nasal Cannula O2 Flow Rate 3.0 3.0 10/23/18 10/23/18 10/23/18 10/23/18 07:16 08:00 08:57 08:57 Pulse 78 78 B/P (MAP) 168/73 168/73 Pulse Ox 92 O2 Delivery Nasal Cannula Nasal Cannula O2 Flow Rate 3.0 3.0 Intake and Output 10/22/18 10/22/18 10/23/18 14:59 22:59 06:59 Intake Total 250 ml 680 ml 480 ml Output Total 700 ml Balance 250 ml -20 ml 480 ml FELA KANG III DO October 23, 2018 10:30
[2018-10-23] MEDS: cloNIDine HCL 0.1 MG TABLET PO PRN (10:34)
--- NOTE | 2018-10-23 10:59 | PDOC ---
Renal-Progress Notes Subjective Notes Notes NO MORE SOA History of Present Illness Hx of present illness STABLE Vitals Vitals Vital Signs Date Time Temp Pulse Resp B/P (MAP) Pulse Ox O2 Delivery O2 Flow Rate FiO2 10/23/18 10:34 65 190/79 10/23/18 08:00 Nasal Cannula 3.0 10/23/18 07:16 92 10/23/18 07:00 97.5 16 97.5 Weight Weight [ ] I.O. Intake and Output Intake and Output 10/23/18 07:00 Intake Total 1410 ml Output Total 700 ml Balance 710 ml Intake Oral 1410 ml Output Urine Total 700 ml Labs Labs Laboratory Tests Test 10/22/18 11:23 10/22/18 14:00 10/22/18 16:53 10/22/18 20:25 Glucose (Fingerstick) 235 mg/dL (70-99) 158 mg/dL (70-99) 207 mg/dL (70-99) Heparin Anti-Xa Act, Unfractionated 0.54 IU/mL (0.30-0.70) Test 10/23/18 03:00 10/23/18 08:00 White Blood Count 7.5 x10^3/uL (4.0-11.0) Red Blood Count 3.35 x10^6/uL (4.30-5.70) Hemoglobin 9.5 g/dL (13.0-17.5) Hematocrit 29.3 % (39.0-53.0) Mean Corpuscular Volume 88 fL (79-100) Mean Corpuscular Hemoglobin 29 pg (25-35) Mean Corpuscular Hemoglobin Concent 33 g/dL (31-37) Red Cell Distribution Width 13.7 % (11.5-14.5) Platelet Count 250 x10^3/uL (140-400) Neutrophils (%) (Auto) 69 % (31-73) Lymphocytes (%) (Auto) 19 % (24-48) Monocytes (%) (Auto) 9 % (0-9) Eosinophils (%) (Auto) 3 % (0-3) Basophils (%) (Auto) 0 % (0-3) Neutrophils # (Auto) 5.2 x10^3uL (1.8-7.7) Lymphocytes # (Auto) 1.4 x10^3/uL (1.0-4.8) Monocytes # (Auto) 0.7 x10^3/uL (0.0-1.1) Eosinophils # (Auto) 0.2 x10^3/uL (0.0-0.7) Basophils # (Auto) 0.0 x10^3/uL (0.0-0.2) Sodium Level 134 mmol/L (136-145) Potassium Level 4.5 mmol/L (3.5-5.1) Chloride Level 99 mmol/L (98-107) Carbon Dioxide Level 28 mmol/L (21-32) Anion Gap 7 (6-14) Blood Urea Nitrogen 66 mg/dL (8-26) Creatinine 3.3 mg/dL (0.7-1.3) Estimated GFR (Cockcroft-Gault) 18.2 Glucose Level 131 mg/dL (70-99) Calcium Level 8.0 mg/dL (8.5-10.1) Glucose (Fingerstick) 110 mg/dL (70-99) Review of Systems Constitutional: yes: weakness, alert, oriented Ears/Nose/Throat: Yes: no symptom reported Pulmonary: Yes dyspnea Cardiovascular: Yes no symptom reported Gastrointestional: Yes: constipation Genitourinary: Yes: no symptom reported Musculoskeletal: Yes: muscle stiffness Skin: Yes no symptom reported Psychiatric/Neurological: Yes: no symptom reported Endocrine: Yes: no symptom reported Physical Exam General Appearance: no apparent distress Skin: warm Respiratory: decreased breath sounds Heart: S1S2, RRR Abdomen: soft, bowel sounds present Genitourinary: bladder flat Neurology: alert, oriented, follow commands Assessment Assessment IMP VIN WITH CR BETTER AT 3.3 DUE TO DIURESIS MOST LIKELY CKD STAGE 3 WITH CR OF 1.5-2.0 ACUTE HYPOXIC RESP FAILURE NSTEMI CHF DIASTOLIC-ACUTE CAD HX WITH PTCA HTN HX-BETTER DM II HX MORBID OBESITY RIGHT ADRENAL ADENOMA PLAN AGREE WITH HOLDING WHIT-I NORVASC CONT TO HOLD LASIX MONITOR PULMONARY STATUS PULM EVAL CARDIOLOGY EVAL WILL FOLLOW ROD PELAEZ MD October 23, 2018 10:59
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
--- NOTE | 2018-10-23 13:23 | NUR ---
SS following up with discharge planning. PT/OT evaluated and recommended group home unit. Pt has no skilled benefits with [facility], but does have acute rehabilitation services. SS met with pt to discuss acute rehabilitation. As observed, pt was confused. SS contacted pt's spouse to discuss acute rehabilitation. Pt's spouse agreeable to acute rehabilitation at discharge. Options discussed. Pt's spouse reported that she would like referral phoned and faxed to [facility], ; fax [phone]. SS phoned and faxed referral. SS will await acceptance decision and insurance determination and will proceed accordingly. Pt's RN notified.
--- NOTE | 2018-10-23 13:36 | RAD ---
Right shoulder, 3 views, 10/23/2018: HISTORY: Trauma No acute fracture or dislocation is identified. There are moderate degenerative change at the acromioclavicular and glenohumeral articulations. There is subacromial spurring. There are degenerative changes at rotator cuff insertion sites on the greater tuberosity. Right scapula, 2 views, 10/23/2018: No fracture or destructive bony lesion is seen. IMPRESSION: 1. Moderate degenerative change at the right shoulder. 2. No acute bony abnormality is detected. Electronically signed by: Cory Kelsey MD (10/23/2018 1:33 PM) [facility]
--- NOTE | 2018-10-23 16:17 | NUR ---
SS following up with discharge planning. Pt accepted at [facility]. Pt's RN notified. SS will continue to follow for discharge planning.
[2018-10-23] MEDS: TAMSULOSIN 0.4 MG CAP.ER.24H. PO SCH (21:09)
[2018-10-23] MEDS: ATORVASTATIN CALCIUM 40 MG TABLET. PO SCH (21:09)
[2018-10-23] MEDS: INSULIN GLARGINE 300 UNITS/3 ML INSULN.PEN. SQ SCH (21:14)
[2018-10-24] MEDS: NITROGLYCERIN OINT 1 GM PACKET. TP SCH ×3 (01:14→12:35)
[2018-10-24] MEDS: IPRATRPIUM/ALBUTEROL 0.5/2.5MG 3 ML NEBU. NEB SCH ×7 (03:06→23:33)
[2018-10-24 03:30] VITALS: BP 157/71
--- NOTE | 2018-10-24 04:00 | NUR ---
PLACED PT ON SIMPLE MASK, MOUTH BREATHING AND PERIODS OF NOT BREATHING SATS DROPPED TO 68%. ON SIMPPLE MASK AT 3 LITERS SATS ARE AT 92%. LCRN
[2018-10-24 06:35] LABS: BASO % 1 % (0-3); EOS # 0.2 x10^3/uL (0.0-0.7); EOS % 3 % (0-3); HEMATOCRIT 29.8 % (39.0-53.0); LYMPH # 1.5 x10^3/uL (1.0-4.8); LYMPH % 21 % (24-48); MEAN CORPUSCULAR HEMOGLOBIN 29 pg (25-35); MEAN CORPUSCULAR HGB CONC 34 g/dL (31-37); MEAN CORPUSCULAR VOLUME 87 fL (79-100); MONO # 0.7 x10^3/uL (0.0-1.1); MONO % 9 % (0-9); NEUT # 4.9 x10^3uL (1.8-7.7); NEUT % 66 % (31-73); PLATELET COUNT 250 x10^3/uL (140-400); RED BLOOD COUNT 3.42 x10^6/uL (4.30-5.70); RED CELL DISTRIBUTION WIDTH 13.9 % (11.5-14.5); WHITE BLOOD COUNT 7.4 x10^3/uL (4.0-11.0)
[2018-10-24 06:40] LABS: CALCIUM 8.2 mg/dL (8.5-10.1); CREATININE 3.5 mg/dL (0.7-1.3); POTASSIUM 4.6 mmol/L (3.5-5.1)
[2018-10-24 07:00] VITALS: BP 176/78
[2018-10-24] MEDS: INSULIN LISPRO 300 UNITS/3 ML INSULN.PEN. SQ SCH ×3 (08:00→17:53)
[2018-10-24] MEDS: ASPIRIN ENTERIC COATED 81 MG TABLET.DR. PO SCH (08:14)
[2018-10-24] MEDS: amLODIPine BESYLATE 5 MG TABLET PO SCH (08:14)
[2018-10-24] MEDS: METOPROLOL TART IMMED RELEASE 25 MG TABLET. PO SCH ×2 (08:15→21:21)
--- NOTE | 2018-10-24 09:07 | PDOC ---
PULMONARY PROGRESS NOTES Subjective PT NOT SOA Vitals Vital Signs Date Time Temp Pulse Resp B/P (MAP) Pulse Ox O2 Delivery O2 Flow Rate FiO2 10/24/18 08:15 60 176/78 10/24/18 07:57 98 Nasal Cannula 2.0 10/24/18 07:00 98.2 18 98.2 ROS: No Nausea, No Abdominal Pain, No Increase Cough General: Alert, No acute distress Lungs: Clear Cardiovascular: S1 Abdomen: Soft Neuro Exam: Alert Extremities: Other (1+edema) Labs Laboratory Tests Test 10/22/18 11:23 10/22/18 14:00 10/22/18 16:53 10/22/18 20:25 Glucose (Fingerstick) 235 mg/dL (70-99) 158 mg/dL (70-99) 207 mg/dL (70-99) Heparin Anti-Xa Act, Unfractionated 0.54 IU/mL (0.30-0.70) Test 10/23/18 03:00 10/23/18 08:00 10/23/18 11:39 10/23/18 16:37 White Blood Count 7.5 x10^3/uL (4.0-11.0) Red Blood Count 3.35 x10^6/uL (4.30-5.70) Hemoglobin 9.5 g/dL (13.0-17.5) Hematocrit 29.3 % (39.0-53.0) Mean Corpuscular Volume 88 fL (79-100) Mean Corpuscular Hemoglobin 29 pg (25-35) Mean Corpuscular Hemoglobin Concent 33 g/dL (31-37) Red Cell Distribution Width 13.7 % (11.5-14.5) Platelet Count 250 x10^3/uL (140-400) Neutrophils (%) (Auto) 69 % (31-73) Lymphocytes (%) (Auto) 19 % (24-48) Monocytes (%) (Auto) 9 % (0-9) Eosinophils (%) (Auto) 3 % (0-3) Basophils (%) (Auto) 0 % (0-3) Neutrophils # (Auto) 5.2 x10^3uL (1.8-7.7) Lymphocytes # (Auto) 1.4 x10^3/uL (1.0-4.8) Monocytes # (Auto) 0.7 x10^3/uL (0.0-1.1) Eosinophils # (Auto) 0.2 x10^3/uL (0.0-0.7) Basophils # (Auto) 0.0 x10^3/uL (0.0-0.2) Sodium Level 134 mmol/L (136-145) Potassium Level 4.5 mmol/L (3.5-5.1) Chloride Level 99 mmol/L (98-107) Carbon Dioxide Level 28 mmol/L (21-32) Anion Gap 7 (6-14) Blood Urea Nitrogen 66 mg/dL (8-26) Creatinine 3.3 mg/dL (0.7-1.3) Estimated GFR (Cockcroft-Gault) 18.2 Glucose Level 131 mg/dL (70-99) Calcium Level 8.0 mg/dL (8.5-10.1) Glucose (Fingerstick) 110 mg/dL (70-99) 190 mg/dL (70-99) 182 mg/dL (70-99) Test 10/23/18 20:44 10/24/18 04:30 10/24/18 07:27 Glucose (Fingerstick) 177 mg/dL (70-99) 138 mg/dL (70-99) White Blood Count 7.4 x10^3/uL (4.0-11.0) Red Blood Count 3.42 x10^6/uL (4.30-5.70) Hemoglobin 10.0 g/dL (13.0-17.5) Hematocrit 29.8 % (39.0-53.0) Mean Corpuscular Volume 87 fL (79-100) Mean Corpuscular Hemoglobin 29 pg (25-35) Mean Corpuscular Hemoglobin Concent 34 g/dL (31-37) Red Cell Distribution Width 13.9 % (11.5-14.5) Platelet Count 250 x10^3/uL (140-400) Neutrophils (%) (Auto) 66 % (31-73) Lymphocytes (%) (Auto) 21 % (24-48) Monocytes (%) (Auto) 9 % (0-9) Eosinophils (%) (Auto) 3 % (0-3) Basophils (%) (Auto) 1 % (0-3) Neutrophils # (Auto) 4.9 x10^3uL (1.8-7.7) Lymphocytes # (Auto) 1.5 x10^3/uL (1.0-4.8) Monocytes # (Auto) 0.7 x10^3/uL (0.0-1.1) Eosinophils # (Auto) 0.2 x10^3/uL (0.0-0.7) Basophils # (Auto) 0.0 x10^3/uL (0.0-0.2) Sodium Level 134 mmol/L (136-145) Potassium Level 4.6 mmol/L (3.5-5.1) Chloride Level 99 mmol/L (98-107) Carbon Dioxide Level 30 mmol/L (21-32) Anion Gap 5 (6-14) Blood Urea Nitrogen 72 mg/dL (8-26) Creatinine 3.5 mg/dL (0.7-1.3) Estimated GFR (Cockcroft-Gault) 17.0 Glucose Level 146 mg/dL (70-99) Calcium Level 8.2 mg/dL (8.5-10.1) Laboratory Tests Test 10/23/18 11:39 10/23/18 16:37 10/23/18 20:44 10/24/18 04:30 Glucose (Fingerstick) 190 mg/dL (70-99) 182 mg/dL (70-99) 177 mg/dL (70-99) White Blood Count 7.4 x10^3/uL (4.0-11.0) Red Blood Count 3.42 x10^6/uL (4.30-5.70) Hemoglobin 10.0 g/dL (13.0-17.5) Hematocrit 29.8 % (39.0-53.0) Mean Corpuscular Volume 87 fL (79-100) Mean Corpuscular Hemoglobin 29 pg (25-35) Mean Corpuscular Hemoglobin Concent 34 g/dL (31-37) Red Cell Distribution Width 13.9 % (11.5-14.5) Platelet Count 250 x10^3/uL (140-400) Neutrophils (%) (Auto) 66 % (31-73) Lymphocytes (%) (Auto) 21 % (24-48) Monocytes (%) (Auto) 9 % (0-9) Eosinophils (%) (Auto) 3 % (0-3) Basophils (%) (Auto) 1 % (0-3) Neutrophils # (Auto) 4.9 x10^3uL (1.8-7.7) Lymphocytes # (Auto) 1.5 x10^3/uL (1.0-4.8) Monocytes # (Auto) 0.7 x10^3/uL (0.0-1.1) Eosinophils # (Auto) 0.2 x10^3/uL (0.0-0.7) Basophils # (Auto) 0.0 x10^3/uL (0.0-0.2) Sodium Level 134 mmol/L (136-145) Potassium Level 4.6 mmol/L (3.5-5.1) Chloride Level 99 mmol/L (98-107) Carbon Dioxide Level 30 mmol/L (21-32) Anion Gap 5 (6-14) Blood Urea Nitrogen 72 mg/dL (8-26) Creatinine 3.5 mg/dL (0.7-1.3) Estimated GFR (Cockcroft-Gault) 17.0 Glucose Level 146 mg/dL (70-99) Calcium Level 8.2 mg/dL (8.5-10.1) Test 10/24/18 07:27 Glucose (Fingerstick) 138 mg/dL (70-99) Medications Active Scripts Medications Dose Route/Sig Max Daily Dose Days Date Category Metoprolol Tartrate 25 Mg Tablet 12.5 Mg PO QHS 10/19/18 Reported Fish Oil 1,000 mg Softgel ([place]-3S/Dha/Epa/Fish Oil) 1 Each Capsule 1 Each PO 10/19/18 Reported [place] (Patiromer Calcium Sorbitex) 8.4 Gm Powd.pack 8.4 Gm PO DAILY 10/19/18 Reported Vitamin D-3 (Cholecalciferol (Vitamin D3)) 2,000 Unit Tablet 5,000 Unit PO DAILY 10/19/18 Reported Aspirin 325 Mg Tablet 1 Tab PO DAILY 10/19/18 Reported Amlodipine Besylate 5 Mg Tablet 5 Mg PO DAILY 10/19/18 Reported Metoprolol Tartrate 25 Mg Tablet 1 Tab PO DAILY 10/19/18 Reported Atorvastatin Calcium 40 Mg Tablet 1 Tab PO QHS 10/19/18 Reported Basaglnaren Parra U-100 (Insulin Glargine,Hum.rec.anlog) 100 Unit/1 Ml Insuln.pen 35 Unit SQ DAILY 10/19/18 Reported Lisinopril 20 Mg Tablet 40 Mg PO DAILY 06/03/13 Reported Comments cxr / IMPROVED RIGHT EFFUSION/ SMALL- MODERATE LEFT EFFUSION Impression . 1. Acute hypoxic respiratory failure secondary to suspected [id number] diastolic heart failure and bilateral pleural effusions. Clinically, less likely thromboembolic disease. His venous Dopplers of the lower extremities were negative for DVT. Could not lay flat for V/Q/. No need for further work up 2. History of coronary artery disease, 3-vessel disease with percutaneous coronary intervention of circumflex in the past and now with a non-ST myocardial infarction. 3. Suspected obstructive sleep apnea. 4. Chronic kidney disease, which makes it difficult to diurese. CT CHEST IMPRESSION: 1. Small to moderate bilateral pleural effusions. 2. Bilateral infiltrates/atelectasis. 3. Right adrenal mass. 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 Plan . RESP STATUS IS COMPENSATED D/C SOON NO NEED FOR THORACENTESIS DIURESE OUT PT SLEEP STUDY FOLLOW CARD INPUT NHI FERNÁNDEZ MD October 24, 2018 09:07
--- NOTE | 2018-10-24 10:24 | PDOC ---
Renal-Progress Notes Subjective Notes Notes NO SOB History of Present Illness Hx of present illness STABLE Vitals Vitals Vital Signs Date Time Temp Pulse Resp B/P (MAP) Pulse Ox O2 Delivery O2 Flow Rate FiO2 10/24/18 08:15 60 176/78 10/24/18 07:57 98 Nasal Cannula 2.0 10/24/18 07:00 98.2 18 98.2 Weight Weight [ ] I.O. Intake and Output Intake and Output 10/24/18 06:59 Intake Total 620 ml Output Total 2850 ml Balance -2230 ml Intake Oral 620 ml Output Urine Total 2850 ml # Bowel Movements 1 Labs Labs Laboratory Tests Test 10/23/18 11:39 10/23/18 16:37 10/23/18 20:44 10/24/18 04:30 Glucose (Fingerstick) 190 mg/dL (70-99) 182 mg/dL (70-99) 177 mg/dL (70-99) White Blood Count 7.4 x10^3/uL (4.0-11.0) Red Blood Count 3.42 x10^6/uL (4.30-5.70) Hemoglobin 10.0 g/dL (13.0-17.5) Hematocrit 29.8 % (39.0-53.0) Mean Corpuscular Volume 87 fL (79-100) Mean Corpuscular Hemoglobin 29 pg (25-35) Mean Corpuscular Hemoglobin Concent 34 g/dL (31-37) Red Cell Distribution Width 13.9 % (11.5-14.5) Platelet Count 250 x10^3/uL (140-400) Neutrophils (%) (Auto) 66 % (31-73) Lymphocytes (%) (Auto) 21 % (24-48) Monocytes (%) (Auto) 9 % (0-9) Eosinophils (%) (Auto) 3 % (0-3) Basophils (%) (Auto) 1 % (0-3) Neutrophils # (Auto) 4.9 x10^3uL (1.8-7.7) Lymphocytes # (Auto) 1.5 x10^3/uL (1.0-4.8) Monocytes # (Auto) 0.7 x10^3/uL (0.0-1.1) Eosinophils # (Auto) 0.2 x10^3/uL (0.0-0.7) Basophils # (Auto) 0.0 x10^3/uL (0.0-0.2) Sodium Level 134 mmol/L (136-145) Potassium Level 4.6 mmol/L (3.5-5.1) Chloride Level 99 mmol/L (98-107) Carbon Dioxide Level 30 mmol/L (21-32) Anion Gap 5 (6-14) Blood Urea Nitrogen 72 mg/dL (8-26) Creatinine 3.5 mg/dL (0.7-1.3) Estimated GFR (Cockcroft-Gault) 17.0 Glucose Level 146 mg/dL (70-99) Calcium Level 8.2 mg/dL (8.5-10.1) Test 10/24/18 07:27 Glucose (Fingerstick) 138 mg/dL (70-99) Review of Systems Constitutional: yes: weakness, alert, oriented Ears/Nose/Throat: Yes: no symptom reported Pulmonary: Yes dyspnea Cardiovascular: Yes no symptom reported Gastrointestional: Yes: constipation Genitourinary: Yes: no symptom reported Musculoskeletal: Yes: muscle stiffness Skin: Yes no symptom reported Psychiatric/Neurological: Yes: no symptom reported Endocrine: Yes: no symptom reported Physical Exam General Appearance: no apparent distress Skin: warm Respiratory: decreased breath sounds Heart: S1S2, RRR Abdomen: soft, bowel sounds present Genitourinary: bladder flat Neurology: alert, oriented, follow commands Assessment Assessment IMP VIN WITH CR UP TO 3.5 CKD STAGE 3 WITH CR OF 1.5-2.0 ACUTE HYPOXIC RESP FAILURE NSTEMI CHF DIASTOLIC-ACUTE CAD HX WITH PTCA HTN HX-BETTER DM II HX MORBID OBESITY RIGHT ADRENAL ADENOMA PLAN AGREE WITH HOLDING WHIT-I INCREASE NORVASC CONT TO HOLD LASIX MONITOR PULMONARY STATUS PULM EVAL CARDIOLOGY EVAL IVF'S FOR NOW WILL FOLLOW ROD PELAEZ MD October 24, 2018 10:24
[2018-10-24] MEDS: IV NORMAL SALINE 1000ML BAG 1,000 ML IV SCH ×2 (10:46→20:30)
[2018-10-24 11:00] VITALS: BP 155/66
--- NOTE | 2018-10-24 11:30 | PDOC ---
ORTHO PROGRESS NOTES Subjective R shoulder a little better today. Vitals Vital Signs Date Time Temp Pulse Resp B/P (MAP) Pulse Ox O2 Delivery O2 Flow Rate FiO2 10/24/18 11:00 98.4 53 18 155/66 (95) 99 Nasal Cannula 3.0 98.4 Labs Laboratory Tests Test 10/22/18 14:00 10/22/18 16:53 10/22/18 20:25 10/23/18 03:00 Heparin Anti-Xa Act, Unfractionated 0.54 IU/mL (0.30-0.70) Glucose (Fingerstick) 158 mg/dL (70-99) 207 mg/dL (70-99) White Blood Count 7.5 x10^3/uL (4.0-11.0) Red Blood Count 3.35 x10^6/uL (4.30-5.70) Hemoglobin 9.5 g/dL (13.0-17.5) Hematocrit 29.3 % (39.0-53.0) Mean Corpuscular Volume 88 fL (79-100) Mean Corpuscular Hemoglobin 29 pg (25-35) Mean Corpuscular Hemoglobin Concent 33 g/dL (31-37) Red Cell Distribution Width 13.7 % (11.5-14.5) Platelet Count 250 x10^3/uL (140-400) Neutrophils (%) (Auto) 69 % (31-73) Lymphocytes (%) (Auto) 19 % (24-48) Monocytes (%) (Auto) 9 % (0-9) Eosinophils (%) (Auto) 3 % (0-3) Basophils (%) (Auto) 0 % (0-3) Neutrophils # (Auto) 5.2 x10^3uL (1.8-7.7) Lymphocytes # (Auto) 1.4 x10^3/uL (1.0-4.8) Monocytes # (Auto) 0.7 x10^3/uL (0.0-1.1) Eosinophils # (Auto) 0.2 x10^3/uL (0.0-0.7) Basophils # (Auto) 0.0 x10^3/uL (0.0-0.2) Sodium Level 134 mmol/L (136-145) Potassium Level 4.5 mmol/L (3.5-5.1) Chloride Level 99 mmol/L (98-107) Carbon Dioxide Level 28 mmol/L (21-32) Anion Gap 7 (6-14) Blood Urea Nitrogen 66 mg/dL (8-26) Creatinine 3.3 mg/dL (0.7-1.3) Estimated GFR (Cockcroft-Gault) 18.2 Glucose Level 131 mg/dL (70-99) Calcium Level 8.0 mg/dL (8.5-10.1) Test 10/23/18 08:00 10/23/18 11:39 10/23/18 16:37 10/23/18 20:44 Glucose (Fingerstick) 110 mg/dL (70-99) 190 mg/dL (70-99) 182 mg/dL (70-99) 177 mg/dL (70-99) Test 10/24/18 04:30 10/24/18 07:27 White Blood Count 7.4 x10^3/uL (4.0-11.0) Red Blood Count 3.42 x10^6/uL (4.30-5.70) Hemoglobin 10.0 g/dL (13.0-17.5) Hematocrit 29.8 % (39.0-53.0) Mean Corpuscular Volume 87 fL (79-100) Mean Corpuscular Hemoglobin 29 pg (25-35) Mean Corpuscular Hemoglobin Concent 34 g/dL (31-37) Red Cell Distribution Width 13.9 % (11.5-14.5) Platelet Count 250 x10^3/uL (140-400) Neutrophils (%) (Auto) 66 % (31-73) Lymphocytes (%) (Auto) 21 % (24-48) Monocytes (%) (Auto) 9 % (0-9) Eosinophils (%) (Auto) 3 % (0-3) Basophils (%) (Auto) 1 % (0-3) Neutrophils # (Auto) 4.9 x10^3uL (1.8-7.7) Lymphocytes # (Auto) 1.5 x10^3/uL (1.0-4.8) Monocytes # (Auto) 0.7 x10^3/uL (0.0-1.1) Eosinophils # (Auto) 0.2 x10^3/uL (0.0-0.7) Basophils # (Auto) 0.0 x10^3/uL (0.0-0.2) Sodium Level 134 mmol/L (136-145) Potassium Level 4.6 mmol/L (3.5-5.1) Chloride Level 99 mmol/L (98-107) Carbon Dioxide Level 30 mmol/L (21-32) Anion Gap 5 (6-14) Blood Urea Nitrogen 72 mg/dL (8-26) Creatinine 3.5 mg/dL (0.7-1.3) Estimated GFR (Cockcroft-Gault) 17.0 Glucose Level 146 mg/dL (70-99) Calcium Level 8.2 mg/dL (8.5-10.1) Glucose (Fingerstick) 138 mg/dL (70-99) Laboratory Tests Test 10/23/18 11:39 10/23/18 16:37 10/23/18 20:44 10/24/18 04:30 Glucose (Fingerstick) 190 mg/dL (70-99) 182 mg/dL (70-99) 177 mg/dL (70-99) White Blood Count 7.4 x10^3/uL (4.0-11.0) Red Blood Count 3.42 x10^6/uL (4.30-5.70) Hemoglobin 10.0 g/dL (13.0-17.5) Hematocrit 29.8 % (39.0-53.0) Mean Corpuscular Volume 87 fL (79-100) Mean Corpuscular Hemoglobin 29 pg (25-35) Mean Corpuscular Hemoglobin Concent 34 g/dL (31-37) Red Cell Distribution Width 13.9 % (11.5-14.5) Platelet Count 250 x10^3/uL (140-400) Neutrophils (%) (Auto) 66 % (31-73) Lymphocytes (%) (Auto) 21 % (24-48) Monocytes (%) (Auto) 9 % (0-9) Eosinophils (%) (Auto) 3 % (0-3) Basophils (%) (Auto) 1 % (0-3) Neutrophils # (Auto) 4.9 x10^3uL (1.8-7.7) Lymphocytes # (Auto) 1.5 x10^3/uL (1.0-4.8) Monocytes # (Auto) 0.7 x10^3/uL (0.0-1.1) Eosinophils # (Auto) 0.2 x10^3/uL (0.0-0.7) Basophils # (Auto) 0.0 x10^3/uL (0.0-0.2) Sodium Level 134 mmol/L (136-145) Potassium Level 4.6 mmol/L (3.5-5.1) Chloride Level 99 mmol/L (98-107) Carbon Dioxide Level 30 mmol/L (21-32) Anion Gap 5 (6-14) Blood Urea Nitrogen 72 mg/dL (8-26) Creatinine 3.5 mg/dL (0.7-1.3) Estimated GFR (Cockcroft-Gault) 17.0 Glucose Level 146 mg/dL (70-99) Calcium Level 8.2 mg/dL (8.5-10.1) Test 10/24/18 07:27 Glucose (Fingerstick) 138 mg/dL (70-99) Notes A and A walking in room with walker ROM improved Assessment and Plan offered to discuss pros and cons of a cortison injection, he declined f/u in clinic 2 wks ok to use arm as tolerated SHADY SALINAS II, MD October 24, 2018 11:30
--- NOTE | 2018-10-24 11:40 | PDOC ---
CARDIO Progress Notes Date and Time Date of Service 10/24/2018 Time of Evaluation 1120 Subjective Subjective: No Chest Pain, No shortness of breath, No Palpitations Vitals Vitals Vital Signs Date Time Temp Pulse Resp B/P (MAP) Pulse Ox O2 Delivery O2 Flow Rate FiO2 10/24/18 11:00 98.4 53 18 155/66 (95) 99 Nasal Cannula 3.0 98.4 Weight Weight [ ] Input and Output Intake and Output Intake and Output0 10/24/18 07:00 Intake Total 620 ml Output Total 2850 ml Balance -2230 ml Intake Oral 620 ml Output Urine Total 2850 ml # Bowel Movements 1 Laboratory Labs Laboratory Tests Test 10/23/18 11:39 10/23/18 16:37 10/23/18 20:44 10/24/18 04:30 Glucose (Fingerstick) 190 mg/dL (70-99) 182 mg/dL (70-99) 177 mg/dL (70-99) White Blood Count 7.4 x10^3/uL (4.0-11.0) Red Blood Count 3.42 x10^6/uL (4.30-5.70) Hemoglobin 10.0 g/dL (13.0-17.5) Hematocrit 29.8 % (39.0-53.0) Mean Corpuscular Volume 87 fL (79-100) Mean Corpuscular Hemoglobin 29 pg (25-35) Mean Corpuscular Hemoglobin Concent 34 g/dL (31-37) Red Cell Distribution Width 13.9 % (11.5-14.5) Platelet Count 250 x10^3/uL (140-400) Neutrophils (%) (Auto) 66 % (31-73) Lymphocytes (%) (Auto) 21 % (24-48) Monocytes (%) (Auto) 9 % (0-9) Eosinophils (%) (Auto) 3 % (0-3) Basophils (%) (Auto) 1 % (0-3) Neutrophils # (Auto) 4.9 x10^3uL (1.8-7.7) Lymphocytes # (Auto) 1.5 x10^3/uL (1.0-4.8) Monocytes # (Auto) 0.7 x10^3/uL (0.0-1.1) Eosinophils # (Auto) 0.2 x10^3/uL (0.0-0.7) Basophils # (Auto) 0.0 x10^3/uL (0.0-0.2) Sodium Level 134 mmol/L (136-145) Potassium Level 4.6 mmol/L (3.5-5.1) Chloride Level 99 mmol/L (98-107) Carbon Dioxide Level 30 mmol/L (21-32) Anion Gap 5 (6-14) Blood Urea Nitrogen 72 mg/dL (8-26) Creatinine 3.5 mg/dL (0.7-1.3) Estimated GFR (Cockcroft-Gault) 17.0 Glucose Level 146 mg/dL (70-99) Calcium Level 8.2 mg/dL (8.5-10.1) Test 10/24/18 07:27 Glucose (Fingerstick) 138 mg/dL (70-99) Review of Systems Constitutional: yes: weakness, alert, oriented Ears/Nose/Throat: Yes: no symptom reported Pulmonary: Yes dyspnea Cardiovascular: Yes no symptom reported Gastrointestional: Yes: constipation Genitourinary: Yes: no symptom reported Musculoskeletal: Yes: muscle stiffness Skin: Yes no symptom reported Psychiatric/Neurological: Yes: no symptom reported Endocrine: Yes: no symptom reported Physical Exam HEENT: Neck Supple W Full Motion Chest: Symmetric LUNGS: Other (faint crackles) Heart: S1S2, RRR (SR), no murmurs Abdomen: Soft N/T, Other (obese) Extremities: Other (1+ bilateral LE edema ) Neurology: alert, oriented, follow commands Assessment Assessment 1. NSTEMI: LBBB, Trop peak at 1.6. EF nml. Echocardiogram with intact LV systolic function. Remains CP free. 2. Acute diastolic CHF: appears compensated 3. CAD; PCI 3 stents in the past. 4. HTN: controlled 5. Hyperlipidemia 6. DM2 7. VIN on CKD: BUN/Cr at 72/3.5. Nephrology following 8. Morbid obesity 9. Noted hypoxia: mouth breather 84% while asleep and better after waking up with O2 supplementation. Recommendations 1. Continue ASA/Plavix. If potential plans for any HD then may hold plavix. 2. Ischemic workup pending renal function. 3. Lasix PRN. IVF started per nephrology 4. Holding ACEi 5. Continue with secondary prevention. 6. Will need outpt DEE DEE workup. Nocturnal desat study tonight 7. Supportive care. KARINA NUNEZ [employer] October 24, 2018 11:39
--- NOTE | 2018-10-24 14:03 | PDOC ---
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 Obesity Tobacco Abuse Hyperlipidemia HTN BPH Acute hypoxic respiratory failure - 2/2 [id number] diastolic heart failure and bilateral pleural effusions Coronary artery disease s/p 3-vessel disease with percutaneous coronary intervention of circumflex in the past History of Present Illness History of Present Illness Patient seen and examined Discussed with nurse Patient well appearing Cr remains elevated still holding diuretics, IVF started Ortho examined pts arm and there is no break Vitals Vitals Vital Signs Date Time Temp Pulse Resp B/P (MAP) Pulse Ox O2 Delivery O2 Flow Rate FiO2 10/24/18 12:35 53 155/66 10/24/18 12:02 98 Nasal Cannula 2.0 10/24/18 11:00 98.4 18 98.4 Physical Exam General: Alert, Oriented X3 Heart: Regular rate Lungs: Clear Abdomen: Soft, No tenderness Extremities: Normal pulses, Other (mild edema +2/4) Skin: No breakdown, Other (Severe right arm bruising noted) Labs LABS Laboratory Tests Test 10/23/18 16:37 10/23/18 20:44 10/24/18 04:30 10/24/18 07:27 Glucose (Fingerstick) 182 mg/dL (70-99) 177 mg/dL (70-99) 138 mg/dL (70-99) White Blood Count 7.4 x10^3/uL (4.0-11.0) Red Blood Count 3.42 x10^6/uL (4.30-5.70) Hemoglobin 10.0 g/dL (13.0-17.5) Hematocrit 29.8 % (39.0-53.0) Mean Corpuscular Volume 87 fL (79-100) Mean Corpuscular Hemoglobin 29 pg (25-35) Mean Corpuscular Hemoglobin Concent 34 g/dL (31-37) Red Cell Distribution Width 13.9 % (11.5-14.5) Platelet Count 250 x10^3/uL (140-400) Neutrophils (%) (Auto) 66 % (31-73) Lymphocytes (%) (Auto) 21 % (24-48) Monocytes (%) (Auto) 9 % (0-9) Eosinophils (%) (Auto) 3 % (0-3) Basophils (%) (Auto) 1 % (0-3) Neutrophils # (Auto) 4.9 x10^3uL (1.8-7.7) Lymphocytes # (Auto) 1.5 x10^3/uL (1.0-4.8) Monocytes # (Auto) 0.7 x10^3/uL (0.0-1.1) Eosinophils # (Auto) 0.2 x10^3/uL (0.0-0.7) Basophils # (Auto) 0.0 x10^3/uL (0.0-0.2) Sodium Level 134 mmol/L (136-145) Potassium Level 4.6 mmol/L (3.5-5.1) Chloride Level 99 mmol/L (98-107) Carbon Dioxide Level 30 mmol/L (21-32) Anion Gap 5 (6-14) Blood Urea Nitrogen 72 mg/dL (8-26) Creatinine 3.5 mg/dL (0.7-1.3) Estimated GFR (Cockcroft-Gault) 17.0 Glucose Level 146 mg/dL (70-99) Calcium Level 8.2 mg/dL (8.5-10.1) Test 10/24/18 11:49 Glucose (Fingerstick) 154 mg/dL (70-99) Review of Systems Review of Systems Patient denies abdominal pain Patient denies blurry vision Assessment and Plan Assessmemt and Plan Problems Medical Problems: (1) Acute on chronic renal insufficiency Status: Acute (2) CHF (congestive heart failure) Status: Acute (3) Hypoxemia Status: Acute (4) NSTEMI (non-ST elevated myocardial infarction) Status: Acute Assessment: NSTEMI (non-ST elevated myocardial infarction) CHF (congestive heart failure) 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 Labs Laboratory Tests Test 5/6/19 14:00 10/22/18 16:53 10/22/18 20:25 10/23/18 03:00 Heparin Anti-Xa Act, Unfractionated 0.54 IU/mL (0.30-0.70) Glucose (Fingerstick) 158 mg/dL (70-99) 207 mg/dL (70-99) White Blood Count 7.5 x10^3/uL (4.0-11.0) Red Blood Count 3.35 x10^6/uL (4.30-5.70) Hemoglobin 9.5 g/dL (13.0-17.5) Hematocrit 29.3 % (39.0-53.0) Mean Corpuscular Volume 88 fL (79-100) Mean Corpuscular Hemoglobin 29 pg (25-35) Mean Corpuscular Hemoglobin Concent 33 g/dL (31-37) Red Cell Distribution Width 13.7 % (11.5-14.5) Platelet Count 250 x10^3/uL (140-400) Neutrophils (%) (Auto) 69 % (31-73) Lymphocytes (%) (Auto) 19 % (24-48) Monocytes (%) (Auto) 9 % (0-9) Eosinophils (%) (Auto) 3 % (0-3) Basophils (%) (Auto) 0 % (0-3) Neutrophils # (Auto) 5.2 x10^3uL (1.8-7.7) Lymphocytes # (Auto) 1.4 x10^3/uL (1.0-4.8) Monocytes # (Auto) 0.7 x10^3/uL (0.0-1.1) Eosinophils # (Auto) 0.2 x10^3/uL (0.0-0.7) Basophils # (Auto) 0.0 x10^3/uL (0.0-0.2) Sodium Level 134 mmol/L (136-145) Potassium Level 4.5 mmol/L (3.5-5.1) Chloride Level 99 mmol/L (98-107) Carbon Dioxide Level 28 mmol/L (21-32) Anion Gap 7 (6-14) Blood Urea Nitrogen 66 mg/dL (8-26) Creatinine 3.3 mg/dL (0.7-1.3) Estimated GFR (Cockcroft-Gault) 18.2 Glucose Level 131 mg/dL (70-99) Calcium Level 8.0 mg/dL (8.5-10.1) Test 10/23/18 08:00 10/23/18 11:39 10/23/18 16:37 10/23/18 20:44 Glucose (Fingerstick) 110 mg/dL (70-99) 190 mg/dL (70-99) 182 mg/dL (70-99) 177 mg/dL (70-99) Test 10/24/18 04:30 10/24/18 07:27 10/24/18 11:49 White Blood Count 7.4 x10^3/uL (4.0-11.0) Red Blood Count 3.42 x10^6/uL (4.30-5.70) Hemoglobin 10.0 g/dL (13.0-17.5) Hematocrit 29.8 % (39.0-53.0) Mean Corpuscular Volume 87 fL (79-100) Mean Corpuscular Hemoglobin 29 pg (25-35) Mean Corpuscular Hemoglobin Concent 34 g/dL (31-37) Red Cell Distribution Width 13.9 % (11.5-14.5) Platelet Count 250 x10^3/uL (140-400) Neutrophils (%) (Auto) 66 % (31-73) Lymphocytes (%) (Auto) 21 % (24-48) Monocytes (%) (Auto) 9 % (0-9) Eosinophils (%) (Auto) 3 % (0-3) Basophils (%) (Auto) 1 % (0-3) Neutrophils # (Auto) 4.9 x10^3uL (1.8-7.7) Lymphocytes # (Auto) 1.5 x10^3/uL (1.0-4.8) Monocytes # (Auto) 0.7 x10^3/uL (0.0-1.1) Eosinophils # (Auto) 0.2 x10^3/uL (0.0-0.7) Basophils # (Auto) 0.0 x10^3/uL (0.0-0.2) Sodium Level 134 mmol/L (136-145) Potassium Level 4.6 mmol/L (3.5-5.1) Chloride Level 99 mmol/L (98-107) Carbon Dioxide Level 30 mmol/L (21-32) Anion Gap 5 (6-14) Blood Urea Nitrogen 72 mg/dL (8-26) Creatinine 3.5 mg/dL (0.7-1.3) Estimated GFR (Cockcroft-Gault) 17.0 Glucose Level 146 mg/dL (70-99) Calcium Level 8.2 mg/dL (8.5-10.1) Glucose (Fingerstick) 138 mg/dL (70-99) 154 mg/dL (70-99) Laboratory Tests Test 10/23/18 16:37 10/23/18 20:44 10/24/18 04:30 10/24/18 07:27 Glucose (Fingerstick) 182 mg/dL (70-99) 177 mg/dL (70-99) 138 mg/dL (70-99) White Blood Count 7.4 x10^3/uL (4.0-11.0) Red Blood Count 3.42 x10^6/uL (4.30-5.70) Hemoglobin 10.0 g/dL (13.0-17.5) Hematocrit 29.8 % (39.0-53.0) Mean Corpuscular Volume 87 fL (79-100) Mean Corpuscular Hemoglobin 29 pg (25-35) Mean Corpuscular Hemoglobin Concent 34 g/dL (31-37) Red Cell Distribution Width 13.9 % (11.5-14.5) Platelet Count 250 x10^3/uL (140-400) Neutrophils (%) (Auto) 66 % (31-73) Lymphocytes (%) (Auto) 21 % (24-48) Monocytes (%) (Auto) 9 % (0-9) Eosinophils (%) (Auto) 3 % (0-3) Basophils (%) (Auto) 1 % (0-3) Neutrophils # (Auto) 4.9 x10^3uL (1.8-7.7) Lymphocytes # (Auto) 1.5 x10^3/uL (1.0-4.8) Monocytes # (Auto) 0.7 x10^3/uL (0.0-1.1) Eosinophils # (Auto) 0.2 x10^3/uL (0.0-0.7) Basophils # (Auto) 0.0 x10^3/uL (0.0-0.2) Sodium Level 134 mmol/L (136-145) Potassium Level 4.6 mmol/L (3.5-5.1) Chloride Level 99 mmol/L (98-107) Carbon Dioxide Level 30 mmol/L (21-32) Anion Gap 5 (6-14) Blood Urea Nitrogen 72 mg/dL (8-26) Creatinine 3.5 mg/dL (0.7-1.3) Estimated GFR (Cockcroft-Gault) 17.0 Glucose Level 146 mg/dL (70-99) Calcium Level 8.2 mg/dL (8.5-10.1) Test 10/24/18 11:49 Glucose (Fingerstick) 154 mg/dL (70-99) Medications Current Medications Albuterol/ Ipratropium (Duoneb) 3 ml 1X ONCE NEB Last administered on 10/19/18 12:00; Start 10/19/18 at 11:45; Stop 10/19/18 at 11:46; Status DC Heparin Sodium (Porcine) (Heparin Sodium) 4,000 unit 1X ONCE IV Last administered on 10/19/18 12:29; Start 10/19/18 at 12:30; Stop 10/19/18 at 12:31; Status DC Heparin Sodium/ Dextrose 500 ml @ 0 mls/hr CONT PRN IV SEE I/O RECORD Last administered on 10/22/18at 02:37; Start 10/19/18 at 12:30; Stop 10/22/18 at 15:06; Status DC Heparin Sodium (Porcine) (Heparin Sodium) 3,000 unit PRN Q6HRS PRN IV FOR UFH LEVEL LESS THAN 0.2 Last administered on 10/19/18 20:34; Start 10/19/18 at 12:30; Stop 10/22/18 at 15:06; Status DC Info (Anti-Coagulation Monitoring By Pharmacy) 1 each PRN DAILY PRN MC SEE COMMENTS Last administered on 10/21/18 09:18; Start 10/19/18 at 12:30; Stop 10/23/18 at 07:33; Status DC Furosemide (Lasix) 60 mg 1X ONCE IVP Last administered on 10/19/18 13:00; Start 10/19/18 at 13:00; Stop 10/19/18 at 13:01; Status DC Ondansetron HCl (Zofran) 4 mg PRN Q8HRS PRN IV NAUSEA/VOMITING; Start 10/19/18 at 13:30; Stop 10/20/18 at 13:29; Status DC Morphine Sulfate (Morphine Sulfate) 2 mg PRN Q2HR PRN IV PAIN; Start 10/19/18 at 13:30; Stop 10/20/18 at 13:29; Status DC Nitroglycerin (Nitrostat) 0.4 mg PRN Q5MIN PRN SL CHEST PAIN; Start 10/19/18 at 13:30; Stop 10/20/18 at 13:29; Status DC Albuterol/ Ipratropium (Duoneb) 3 ml RTQID NEB ; Start 10/19/18 at 16:00; Stop 10/19/18 at 16:00; Status DC Amlodipine Besylate (Norvasc) 5 mg 1X ONCE PO Last administered on 10/19/18 13:53; Start 10/19/18 at 13:30; Stop 10/19/18 at 13:31; Status DC Nitroglycerin (Nitro-Bid Oint) 0.5 inch Q6HRS TP Last administered on 10/24/18 12:35; Start 10/19/18 at 14:00 Aspirin (Ecotrin) 81 mg DAILYWBKFT PO Last administered on 10/24/18 08:14; Start 10/19/18 at 14:00 Metoprolol Tartrate (Lopressor) 25 mg BID PO Last administered on 10/24/18 08:15; Start 10/19/18 at 14:00 Atorvastatin Calcium (Lipitor) 40 mg QHS PO Last administered on 10/23/18at 21:09; Start 10/19/18 at 21:00 Sodium Chloride (Normal Saline Flush 3ml) 3 ml QSHIFT PRN IV AFTER MEDS AND BLOOD DRAWS; Start 10/19/18 at 15:15 Ondansetron HCl (Zofran) 4 mg PRN Q4HRS PRN IV NAUSEA/VOMITING Last administered on 10/22/18 02:09; Start 10/19/18 at 15:15 Acetaminophen (Tylenol) 650 mg PRN Q4HRS PRN PO TEMP OVER 100.4F OR MILD PAIN Last administered on 5/6/19at 14:10; Start 10/19/18 at 15:15 Al Hydroxide/Mg Hydroxide (Mylanta Plus Xs) 30 ml PRN DAILY PRN PO HEARTBURN / GAS; Start 10/19/18 at 15:15 Clonidine HCl (Catapres) 0.1 mg PRN Q6HRS PRN PO SBP>160 OR DBP>90 Last administered on 10/23/18 10:34; Start 10/19/18 at 15:15 Docusate Sodium (Colace) 100 mg PRN BID PRN PO CONSTIPATION Last administered on 10/21/18 23:21; Start 10/19/18 at 15:15 Albuterol/ Ipratropium (Duoneb) 3 ml Q4HRS NEB Last administered on 10/24/18 12:00; Start 10/19/18 at 16:00 Guaifenesin (Robitussin) 200 mg PRN Q4HRS PRN PO COUGH; Start 10/19/18 at 15:15 Enoxaparin Sodium (Lovenox 40mg Syringe) 40 mg DAILY SQ ; Start 10/20/18 at 09:00; Stop 10/20/18 at 09:00; Status DC Sodium Bicarbonate (Sodium Bicarb Adult 8.4% Syr) 50 meq 1X ONCE IV Last administered on 10/19/18 16:42; Start 10/19/18 at 16:30; Stop 10/19/18 at 16:33; Status DC Insulin Human Lispro (HumaLOG) 0-7 UNITS TIDWMEALS SQ Last administered on 10/23/18 17:28; Start 10/19/18 at 18:00 Dextrose (Dextrose 50%-Water Syringe) 12.5 gm PRN Q15MIN PRN IV SEE COMMENTS; Start 10/19/18 at 18:00 Furosemide (Lasix) 40 mg Q8HRS IVP Last administered on 10/21/18 06:22; Start 10/20/18 at 14:00; Stop 10/21/18 at 16:45; Status DC Amlodipine Besylate (Norvasc) 5 mg DAILY PO Last administered on 10/24/18 08:14; Start 10/21/18 at 12:30 Tamsulosin HCl (Flomax) 0.4 mg QHS PO Last administered on 5/7/19at 21:09; Start 10/21/18 at 21:00 Ropinirole HCl (Requip) 2 mg 1X ONCE PO Last administered on 10/22/18at 00:58; Start 10/22/18 at 01:00; Stop 10/22/18 at 01:01; Status DC Magnesium Sulfate 50 ml @ 25 mls/hr 1X ONCE IV Last administered on 10/22/18at 01:11; Start 10/22/18 at 01:00; Stop 10/22/18 at 02:59; Status DC Clopidogrel Bisulfate (Plavix) 75 mg DAILYWBKFT PO Last administered on 10/23/18at 08:56; Start 10/23/18 at 08:00; Stop 10/24/18 at 10:05; Status DC Insulin Glargine (Lantus) 35 units QHS SQ Last administered on 10/23/18at 21:14; Start 10/22/18 at 21:00 Sodium Chloride 1,000 ml @ 100 mls/hr Q10H IV Last administered on 10/24/18at 10:46; Start 10/24/18 at 10:30 Active Scripts Active Reported Metoprolol Tartrate 25 Mg Tablet 12.5 Mg PO QHS Fish Oil 1,000 mg Softgel ([place]-3S/Dha/Epa/Fish Oil) 1 Each Capsule 1 Each PO [place] (Patiromer Calcium Sorbitex) 8.4 Gm Powd.pack 8.4 Gm PO DAILY Vitamin D-3 (Cholecalciferol (Vitamin D3)) 2,000 Unit Tablet 5,000 Unit PO DAILY Aspirin 325 Mg Tablet 1 Tab PO DAILY Amlodipine Besylate 5 Mg Tablet 5 Mg PO DAILY Metoprolol Tartrate 25 Mg Tablet 1 Tab PO DAILY Atorvastatin Calcium 40 Mg Tablet 1 Tab PO QHS Basaglar [place] U-100 (Insulin Glargine,Hum.rec.anlog) 100 Unit/1 Ml Insuln.pen 35 Unit SQ DAILY Lisinopril 20 Mg Tablet 40 Mg PO DAILY Vitals/I & O Vital Sign - Last 24 Hours 10/23/18 10/23/18 10/23/18 10/23/18 15:00 15:23 17:20 19:30 Temp 97.7 97.7 Pulse 57 62 Resp 18 B/P (MAP) 138/63 (88) 138/63 Pulse Ox 95 95 97 O2 Delivery Nasal Cannula Nasal Cannula Nasal Cannula O2 Flow Rate 3.0 3.0 3.0 10/23/18 10/23/18 10/23/18 10/23/18 19:40 20:00 21:09 22:35 Temp 98.7 98.6 98.7 98.6 Pulse 61 71 62 Resp 22 20 B/P (MAP) 165/70 (101) 165/70 171/75 (107) Pulse Ox 97 97 O2 Delivery Nasal Cannula Nasal Cannula Nasal Cannula O2 Flow Rate 3.0 3.0 3.0 10/24/18 10/24/18 10/24/18 10/24/18 01:14 03:30 05:33 07:00 Temp 98.4 98.2 98.4 98.2 Pulse 97 60 65 60 Resp 20 18 B/P (MAP) 171/75 157/71 (99) 157/71 176/78 (110) Pulse Ox 98 96 O2 Delivery Nasal Cannula Nasal Cannula O2 Flow Rate 3.0 3.0 10/24/18 10/24/18 10/24/18 10/24/18 07:57 08:00 08:14 08:15 Pulse 60 60 B/P (MAP) 176/78 176/78 Pulse Ox 98 O2 Delivery Nasal Cannula Nasal Cannula O2 Flow Rate 2.0 3.0 10/24/18 10/24/18 10/24/18 11:00 12:02 12:35 Temp 98.4 98.4 Pulse 53 53 Resp 18 B/P (MAP) 155/66 (95) 155/66 Pulse Ox 99 98 O2 Delivery Nasal Cannula Nasal Cannula O2 Flow Rate 3.0 2.0 Intake and Output 10/23/18 10/23/18 10/24/18 14:59 22:59 06:59 Intake Total 240 ml 180 ml 200 ml Output Total 800 ml 950 ml 1100 ml Balance -560 ml -770 ml -900 ml FELA KANG III DO October 24, 2018 14:03
[2018-10-24 15:00] VITALS: BP 176/79
[2018-10-24] MEDS ORDERED: amLODIPine BESYLATE 5 MG TABLET PO ONE (15:30)
[2018-10-24] MEDS: ISOSORBIDE MONONITRATE ER 30 MG TAB.ER.24H PO SCH (15:57)
--- NOTE | 2018-10-24 15:58 | NUR ---
Gave an extra dose of norvasc for HTN. Imdure to start tomorrow a.m. per Apryl Tejeda.
[2018-10-24 19:23] VITALS: BP 105/66
[2018-10-24] MEDS: ATORVASTATIN CALCIUM 40 MG TABLET. PO SCH (21:21)
[2018-10-24] MEDS: TAMSULOSIN 0.4 MG CAP.ER.24H. PO SCH (21:21)
[2018-10-24] MEDS: INSULIN GLARGINE 300 UNITS/3 ML INSULN.PEN. SQ SCH (21:22)
[2018-10-24 22:00] VITALS: BP 149/67
[2018-10-24] MEDS: hydrALAZINE 20 MG/ML VIAL. IVP PRN (22:22)
[2018-10-25] VITALS (7 sets, daily range): BP systolic 135–175; BP diastolic 55–74
[2018-10-25] MEDS: IPRATRPIUM/ALBUTEROL 0.5/2.5MG 3 ML NEBU. NEB SCH ×5 (03:57→20:06)
[2018-10-25 05:04] LABS: BASO % 1 % (0-3); EOS # 0.2 x10^3/uL (0.0-0.7); EOS % 2 % (0-3); HEMATOCRIT 29.3 % (39.0-53.0); HEMOGLOBIN 9.6 g/dL (13.0-17.5); LYMPH # 1.2 x10^3/uL (1.0-4.8); LYMPH % 15 % (24-48); MEAN CORPUSCULAR HEMOGLOBIN 29 pg (25-35); MEAN CORPUSCULAR HGB CONC 33 g/dL (31-37); MEAN CORPUSCULAR VOLUME 88 fL (79-100); MONO # 0.7 x10^3/uL (0.0-1.1); MONO % 9 % (0-9); NEUT # 5.8 x10^3uL (1.8-7.7); NEUT % 73 % (31-73); PLATELET COUNT 274 x10^3/uL (140-400); RED BLOOD COUNT 3.33 x10^6/uL (4.30-5.70); RED CELL DISTRIBUTION WIDTH 13.5 % (11.5-14.5); WHITE BLOOD COUNT 7.9 x10^3/uL (4.0-11.0)
[2018-10-25 05:25] LABS: GFR 20.3; POTASSIUM 5.1 mmol/L (3.5-5.1)
[2018-10-25] MEDS: IV NORMAL SALINE 1000ML BAG 1,000 ML IV SCH (06:30)
[2018-10-25] MEDS: amLODIPine BESYLATE 5 MG TABLET PO SCH (08:39)
[2018-10-25] MEDS: ISOSORBIDE MONONITRATE ER 30 MG TAB.ER.24H PO SCH (08:40)
[2018-10-25] MEDS: METOPROLOL TART IMMED RELEASE 25 MG TABLET. PO SCH ×2 (08:40→21:26)
[2018-10-25] MEDS: ASPIRIN ENTERIC COATED 81 MG TABLET.DR. PO SCH (08:40)
[2018-10-25] MEDS: INSULIN LISPRO 300 UNITS/3 ML INSULN.PEN. SQ SCH ×3 (08:44→17:00)
--- NOTE | 2018-10-25 08:54 | PDOC ---
PULMONARY PROGRESS NOTES Subjective PT NOT SOA Vitals Vital Signs Date Time Temp Pulse Resp B/P (MAP) Pulse Ox O2 Delivery O2 Flow Rate FiO2 10/25/18 08:40 72 169/74 10/25/18 07:57 96 Nasal Cannula 2.0 10/25/18 07:00 97.9 97.9 10/24/18 19:23 20 ROS: No Nausea, No Abdominal Pain, No Increase Cough General: Alert, No acute distress Lungs: Clear Cardiovascular: S1 Abdomen: Soft Neuro Exam: Alert Extremities: Other (1+edema) Labs Laboratory Tests Test 10/23/18 11:39 10/23/18 16:37 10/23/18 20:44 10/24/18 04:30 Glucose (Fingerstick) 190 mg/dL (70-99) 182 mg/dL (70-99) 177 mg/dL (70-99) White Blood Count 7.4 x10^3/uL (4.0-11.0) Red Blood Count 3.42 x10^6/uL (4.30-5.70) Hemoglobin 10.0 g/dL (13.0-17.5) Hematocrit 29.8 % (39.0-53.0) Mean Corpuscular Volume 87 fL (79-100) Mean Corpuscular Hemoglobin 29 pg (25-35) Mean Corpuscular Hemoglobin Concent 34 g/dL (31-37) Red Cell Distribution Width 13.9 % (11.5-14.5) Platelet Count 250 x10^3/uL (140-400) Neutrophils (%) (Auto) 66 % (31-73) Lymphocytes (%) (Auto) 21 % (24-48) Monocytes (%) (Auto) 9 % (0-9) Eosinophils (%) (Auto) 3 % (0-3) Basophils (%) (Auto) 1 % (0-3) Neutrophils # (Auto) 4.9 x10^3uL (1.8-7.7) Lymphocytes # (Auto) 1.5 x10^3/uL (1.0-4.8) Monocytes # (Auto) 0.7 x10^3/uL (0.0-1.1) Eosinophils # (Auto) 0.2 x10^3/uL (0.0-0.7) Basophils # (Auto) 0.0 x10^3/uL (0.0-0.2) Sodium Level 134 mmol/L (136-145) Potassium Level 4.6 mmol/L (3.5-5.1) Chloride Level 99 mmol/L (98-107) Carbon Dioxide Level 30 mmol/L (21-32) Anion Gap 5 (6-14) Blood Urea Nitrogen 72 mg/dL (8-26) Creatinine 3.5 mg/dL (0.7-1.3) Estimated GFR (Cockcroft-Gault) 17.0 Glucose Level 146 mg/dL (70-99) Calcium Level 8.2 mg/dL (8.5-10.1) Test 10/24/18 07:27 10/24/18 11:49 10/24/18 16:42 10/24/18 21:20 Glucose (Fingerstick) 138 mg/dL (70-99) 154 mg/dL (70-99) 175 mg/dL (70-99) 166 mg/dL (70-99) Test 10/25/18 04:30 10/25/18 07:59 White Blood Count 7.9 x10^3/uL (4.0-11.0) Red Blood Count 3.33 x10^6/uL (4.30-5.70) Hemoglobin 9.6 g/dL (13.0-17.5) Hematocrit 29.3 % (39.0-53.0) Mean Corpuscular Volume 88 fL (79-100) Mean Corpuscular Hemoglobin 29 pg (25-35) Mean Corpuscular Hemoglobin Concent 33 g/dL (31-37) Red Cell Distribution Width 13.5 % (11.5-14.5) Platelet Count 274 x10^3/uL (140-400) Neutrophils (%) (Auto) 73 % (31-73) Lymphocytes (%) (Auto) 15 % (24-48) Monocytes (%) (Auto) 9 % (0-9) Eosinophils (%) (Auto) 2 % (0-3) Basophils (%) (Auto) 1 % (0-3) Neutrophils # (Auto) 5.8 x10^3uL (1.8-7.7) Lymphocytes # (Auto) 1.2 x10^3/uL (1.0-4.8) Monocytes # (Auto) 0.7 x10^3/uL (0.0-1.1) Eosinophils # (Auto) 0.2 x10^3/uL (0.0-0.7) Basophils # (Auto) 0.0 x10^3/uL (0.0-0.2) Sodium Level 138 mmol/L (136-145) Potassium Level 5.1 mmol/L (3.5-5.1) Chloride Level 103 mmol/L (98-107) Carbon Dioxide Level 26 mmol/L (21-32) Anion Gap 9 (6-14) Blood Urea Nitrogen 71 mg/dL (8-26) Creatinine 3.0 mg/dL (0.7-1.3) Estimated GFR (Cockcroft-Gault) 20.3 Glucose Level 164 mg/dL (70-99) Calcium Level 8.0 mg/dL (8.5-10.1) Glucose (Fingerstick) 215 mg/dL (70-99) Laboratory Tests Test 10/24/18 11:49 10/24/18 16:42 10/24/18 21:20 10/25/18 04:30 Glucose (Fingerstick) 154 mg/dL (70-99) 175 mg/dL (70-99) 166 mg/dL (70-99) White Blood Count 7.9 x10^3/uL (4.0-11.0) Red Blood Count 3.33 x10^6/uL (4.30-5.70) Hemoglobin 9.6 g/dL (13.0-17.5) Hematocrit 29.3 % (39.0-53.0) Mean Corpuscular Volume 88 fL (79-100) Mean Corpuscular Hemoglobin 29 pg (25-35) Mean Corpuscular Hemoglobin Concent 33 g/dL (31-37) Red Cell Distribution Width 13.5 % (11.5-14.5) Platelet Count 274 x10^3/uL (140-400) Neutrophils (%) (Auto) 73 % (31-73) Lymphocytes (%) (Auto) 15 % (24-48) Monocytes (%) (Auto) 9 % (0-9) Eosinophils (%) (Auto) 2 % (0-3) Basophils (%) (Auto) 1 % (0-3) Neutrophils # (Auto) 5.8 x10^3uL (1.8-7.7) Lymphocytes # (Auto) 1.2 x10^3/uL (1.0-4.8) Monocytes # (Auto) 0.7 x10^3/uL (0.0-1.1) Eosinophils # (Auto) 0.2 x10^3/uL (0.0-0.7) Basophils # (Auto) 0.0 x10^3/uL (0.0-0.2) Sodium Level 138 mmol/L (136-145) Potassium Level 5.1 mmol/L (3.5-5.1) Chloride Level 103 mmol/L (98-107) Carbon Dioxide Level 26 mmol/L (21-32) Anion Gap 9 (6-14) Blood Urea Nitrogen 71 mg/dL (8-26) Creatinine 3.0 mg/dL (0.7-1.3) Estimated GFR (Cockcroft-Gault) 20.3 Glucose Level 164 mg/dL (70-99) Calcium Level 8.0 mg/dL (8.5-10.1) Test 10/25/18 07:59 Glucose (Fingerstick) 215 mg/dL (70-99) Medications Active Scripts Medications Dose Route/Sig Max Daily Dose Days Date Category Metoprolol Tartrate 25 Mg Tablet 12.5 Mg PO QHS 10/19/18 Reported Fish Oil 1,000 mg Softgel ([place]-3S/Dha/Epa/Fish Oil) 1 Each Capsule 1 Each PO 10/19/18 Reported [place] (Patiromer Calcium Sorbitex) 8.4 Gm Powd.pack 8.4 Gm PO DAILY 10/19/18 Reported Vitamin D-3 (Cholecalciferol (Vitamin D3)) 2,000 Unit Tablet 5,000 Unit PO DAILY 10/19/18 Reported Aspirin 325 Mg Tablet 1 Tab PO DAILY 10/19/18 Reported Amlodipine Besylate 5 Mg Tablet 5 Mg PO DAILY 10/19/18 Reported Metoprolol Tartrate 25 Mg Tablet 1 Tab PO DAILY 10/19/18 Reported Atorvastatin Calcium 40 Mg Tablet 1 Tab PO QHS 10/19/18 Reported Basaglnaren Pisanopen U-100 (Insulin Glargine,Hum.rec.anlog) 100 Unit/1 Ml Insuln.pen 35 Unit SQ DAILY 10/19/18 Reported Lisinopril 20 Mg Tablet 40 Mg PO DAILY 06/03/13 Reported Comments cxr 5/6 IMPROVED RIGHT EFFUSION/ SMALL- MODERATE LEFT EFFUSION Impression . 1. Acute hypoxic respiratory failure secondary to suspected [id number] diastolic heart failure and bilateral pleural effusions. Clinically, less likely thromboembolic disease. His venous Dopplers of the lower extremities were negative for DVT. Could not lay flat for V/Q/. No need for further work up 2. History of coronary artery disease, 3-vessel disease with percutaneous coronary intervention of circumflex in the past and now with a non-ST myocardial infarction. 3. Suspected obstructive sleep apnea. 4. Chronic kidney disease, which makes it difficult to diurese. CT CHEST IMPRESSION: 1. Small to moderate bilateral pleural effusions. 2. Bilateral infiltrates/atelectasis. 3. Right adrenal mass. 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 Plan . OK TO TRANSFER IN AM CXR NO CHANGE NO NEED FOR THORACENTESIS DIURESE OUT PT SLEEP STUDY FOLLOW CARD INPUT NHI FERNÁNDEZ MD October 25, 2018 08:54
--- NOTE | 2018-10-25 08:55 | PDOC ---
Renal-Progress Notes Subjective Notes Notes NO NEW COMPLAINTS History of Present Illness Hx of present illness STABLE Vitals Vitals Vital Signs Date Time Temp Pulse Resp B/P (MAP) Pulse Ox O2 Delivery O2 Flow Rate FiO2 10/25/18 08:40 72 169/74 10/25/18 07:57 96 Nasal Cannula 2.0 10/25/18 07:00 97.9 97.9 10/24/18 19:23 20 Weight Weight [ ] I.O. Intake and Output Intake and Output 10/25/18 07:00 Intake Total 2630 ml Output Total 1650 ml Balance 980 ml Intake Oral 700 ml IV Total 1930 ml Output Urine Total 1650 ml # Bowel Movements 1 Labs Labs Laboratory Tests Test 10/24/18 11:49 10/24/18 16:42 10/24/18 21:20 10/25/18 04:30 Glucose (Fingerstick) 154 mg/dL (70-99) 175 mg/dL (70-99) 166 mg/dL (70-99) White Blood Count 7.9 x10^3/uL (4.0-11.0) Red Blood Count 3.33 x10^6/uL (4.30-5.70) Hemoglobin 9.6 g/dL (13.0-17.5) Hematocrit 29.3 % (39.0-53.0) Mean Corpuscular Volume 88 fL (79-100) Mean Corpuscular Hemoglobin 29 pg (25-35) Mean Corpuscular Hemoglobin Concent 33 g/dL (31-37) Red Cell Distribution Width 13.5 % (11.5-14.5) Platelet Count 274 x10^3/uL (140-400) Neutrophils (%) (Auto) 73 % (31-73) Lymphocytes (%) (Auto) 15 % (24-48) Monocytes (%) (Auto) 9 % (0-9) Eosinophils (%) (Auto) 2 % (0-3) Basophils (%) (Auto) 1 % (0-3) Neutrophils # (Auto) 5.8 x10^3uL (1.8-7.7) Lymphocytes # (Auto) 1.2 x10^3/uL (1.0-4.8) Monocytes # (Auto) 0.7 x10^3/uL (0.0-1.1) Eosinophils # (Auto) 0.2 x10^3/uL (0.0-0.7) Basophils # (Auto) 0.0 x10^3/uL (0.0-0.2) Sodium Level 138 mmol/L (136-145) Potassium Level 5.1 mmol/L (3.5-5.1) Chloride Level 103 mmol/L (98-107) Carbon Dioxide Level 26 mmol/L (21-32) Anion Gap 9 (6-14) Blood Urea Nitrogen 71 mg/dL (8-26) Creatinine 3.0 mg/dL (0.7-1.3) Estimated GFR (Cockcroft-Gault) 20.3 Glucose Level 164 mg/dL (70-99) Calcium Level 8.0 mg/dL (8.5-10.1) Test 10/25/18 07:59 Glucose (Fingerstick) 215 mg/dL (70-99) Review of Systems Constitutional: yes: weakness, alert, oriented Ears/Nose/Throat: Yes: no symptom reported Pulmonary: Yes dyspnea Cardiovascular: Yes no symptom reported Gastrointestional: Yes: constipation Genitourinary: Yes: no symptom reported Musculoskeletal: Yes: muscle stiffness Skin: Yes no symptom reported Psychiatric/Neurological: Yes: no symptom reported Endocrine: Yes: no symptom reported Physical Exam General Appearance: no apparent distress Skin: warm Respiratory: decreased breath sounds Heart: S1S2, RRR Abdomen: soft, bowel sounds present Genitourinary: bladder flat Neurology: alert, oriented, follow commands Assessment Assessment IMP VIN WITH CR IMPROVED TO 3.0 CKD STAGE 3 WITH CR OF 1.5-2.0 ACUTE HYPOXIC RESP FAILURE NSTEMI CHF DIASTOLIC-ACUTE CAD HX WITH PTCA HTN HX-BETTER DM II HX MORBID OBESITY RIGHT ADRENAL ADENOMA PLAN AGREE WITH HOLDING WHIT-I INCREASE NORVASC RESUME LASIX MONITOR PULMONARY STATUS PULM EVAL CARDIOLOGY EVAL STOP IVF'S WILL FOLLOW ROD PELAEZ MD October 25, 2018 08:55
[2018-10-25] MEDS ORDERED: FUROSEMIDE 40 MG/4 ML VIAL. IVP ONE (09:00)
--- NOTE | 2018-10-25 09:45 | PDOC ---
CARDIO Progress Notes Date and Time Date of Service 10/25/2018 Time of Evaluation 0920 Subjective Subjective: No Chest Pain, No Palpitations, No Dizziness, Other (DEL ANGEL) Vitals Vitals Vital Signs Date Time Temp Pulse Resp B/P (MAP) Pulse Ox O2 Delivery O2 Flow Rate FiO2 10/25/18 08:40 72 169/74 10/25/18 07:57 96 Nasal Cannula 2.0 10/25/18 07:00 97.9 97.9 10/24/18 19:23 20 Weight Weight [ ] Input and Output Intake and Output Intake and Output 10/25/18 07:00 Intake Total 2630 ml Output Total 1650 ml Balance 980 ml Intake Oral 700 ml IV Total 1930 ml Output Urine Total 1650 ml # Bowel Movements 1 Laboratory Labs Laboratory Tests Test 10/24/18 11:49 10/24/18 16:42 10/24/18 21:20 10/25/18 04:30 Glucose (Fingerstick) 154 mg/dL (70-99) 175 mg/dL (70-99) 166 mg/dL (70-99) White Blood Count 7.9 x10^3/uL (4.0-11.0) Red Blood Count 3.33 x10^6/uL (4.30-5.70) Hemoglobin 9.6 g/dL (13.0-17.5) Hematocrit 29.3 % (39.0-53.0) Mean Corpuscular Volume 88 fL (79-100) Mean Corpuscular Hemoglobin 29 pg (25-35) Mean Corpuscular Hemoglobin Concent 33 g/dL (31-37) Red Cell Distribution Width 13.5 % (11.5-14.5) Platelet Count 274 x10^3/uL (140-400) Neutrophils (%) (Auto) 73 % (31-73) Lymphocytes (%) (Auto) 15 % (24-48) Monocytes (%) (Auto) 9 % (0-9) Eosinophils (%) (Auto) 2 % (0-3) Basophils (%) (Auto) 1 % (0-3) Neutrophils # (Auto) 5.8 x10^3uL (1.8-7.7) Lymphocytes # (Auto) 1.2 x10^3/uL (1.0-4.8) Monocytes # (Auto) 0.7 x10^3/uL (0.0-1.1) Eosinophils # (Auto) 0.2 x10^3/uL (0.0-0.7) Basophils # (Auto) 0.0 x10^3/uL (0.0-0.2) Sodium Level 138 mmol/L (136-145) Potassium Level 5.1 mmol/L (3.5-5.1) Chloride Level 103 mmol/L (98-107) Carbon Dioxide Level 26 mmol/L (21-32) Anion Gap 9 (6-14) Blood Urea Nitrogen 71 mg/dL (8-26) Creatinine 3.0 mg/dL (0.7-1.3) Estimated GFR (Cockcroft-Gault) 20.3 Glucose Level 164 mg/dL (70-99) Calcium Level 8.0 mg/dL (8.5-10.1) Test 10/25/18 07:59 Glucose (Fingerstick) 215 mg/dL (70-99) Review of Systems Constitutional: yes: weakness, alert, oriented Ears/Nose/Throat: Yes: no symptom reported Pulmonary: Yes dyspnea Cardiovascular: Yes no symptom reported Gastrointestional: Yes: constipation Genitourinary: Yes: no symptom reported Musculoskeletal: Yes: muscle stiffness Skin: Yes no symptom reported Psychiatric/Neurological: Yes: no symptom reported Endocrine: Yes: no symptom reported Physical Exam HEENT: Neck Supple W Full Motion Chest: Symmetric LUNGS: Other (diminished basilar crackles) Heart: S1S2, RRR (SR) Abdomen: Soft N/T, Other (obese) Extremities: Other (1+ bilateral LE edema ) Neurology: alert, oriented, follow commands Assessment Assessment 1. NSTEMI: LBBB, Trop peak at 1.6. EF nml. Echocardiogram with intact LV systolic function. Remains CP free. 2. Acute diastolic CHF: refractory 3. CAD; PCI 3 stents in the past. 4. HTN: labile 5. Hyperlipidemia 6. DM2 7. 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 Nephrology following 8. Morbid obesity 9. Suspect DEE DEE: nocturnal desat study inconclusive. Per staff noted apneic episode the other night. Recommendations 1. Continue ASA, holding plavix if any potential HD line. PCXR 2. Pt has been having alternating LBBB and narrow complex suggestive of ischemia. Will discuss with primary horse trainer for ischemic w/u timing. 3. Lasix IV x1 given. Continue norvasc, may increase if BP remains labile. Change NTG paste to PO. 4. Holding ACEi 5. Continue with secondary prevention. 6. Will need outpt DEE DEE workup. KARINA NUNEZ LAUNDRY OPERATOR October 25, 2018 09:45
[2018-10-25] MEDS ORDERED: amLODIPine BESYLATE 5 MG TABLET PO ONE (10:00)
--- NOTE | 2018-10-25 10:41 | PDOC ---
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 Obesity Tobacco Abuse Hyperlipidemia HTN BPH Acute hypoxic respiratory failure - 2/2 [id number] diastolic heart failure and bilateral pleural effusions Coronary artery disease s/p 3-vessel disease with percutaneous coronary intervention of circumflex in the past History of Present Illness History of Present Illness Patient seen and examined Discussed with nurse Patient well appearing Cr remains elevated still holding diuretics, IVF started Ortho examined pts arm and there is no break Vitals Vitals Vital Signs Date Time Temp Pulse Resp B/P (MAP) Pulse Ox O2 Delivery O2 Flow Rate FiO2 10/25/18 08:40 72 169/74 10/25/18 07:57 96 Nasal Cannula 2.0 10/25/18 07:00 97.9 97.9 10/24/18 19:23 20 Physical Exam General: Alert, Oriented X3 Heart: Regular rate Lungs: Clear Abdomen: Soft, No tenderness Extremities: Normal pulses, Other (mild edema +2/4) Skin: No breakdown, Other (Severe right arm bruising noted) Labs LABS Laboratory Tests Test 10/24/18 11:49 10/24/18 16:42 10/24/18 21:20 10/25/18 04:30 Glucose (Fingerstick) 154 mg/dL (70-99) 175 mg/dL (70-99) 166 mg/dL (70-99) White Blood Count 7.9 x10^3/uL (4.0-11.0) Red Blood Count 3.33 x10^6/uL (4.30-5.70) Hemoglobin 9.6 g/dL (13.0-17.5) Hematocrit 29.3 % (39.0-53.0) Mean Corpuscular Volume 88 fL (79-100) Mean Corpuscular Hemoglobin 29 pg (25-35) Mean Corpuscular Hemoglobin Concent 33 g/dL (31-37) Red Cell Distribution Width 13.5 % (11.5-14.5) Platelet Count 274 x10^3/uL (140-400) Neutrophils (%) (Auto) 73 % (31-73) Lymphocytes (%) (Auto) 15 % (24-48) Monocytes (%) (Auto) 9 % (0-9) Eosinophils (%) (Auto) 2 % (0-3) Basophils (%) (Auto) 1 % (0-3) Neutrophils # (Auto) 5.8 x10^3uL (1.8-7.7) Lymphocytes # (Auto) 1.2 x10^3/uL (1.0-4.8) Monocytes # (Auto) 0.7 x10^3/uL (0.0-1.1) Eosinophils # (Auto) 0.2 x10^3/uL (0.0-0.7) Basophils # (Auto) 0.0 x10^3/uL (0.0-0.2) Sodium Level 138 mmol/L (136-145) Potassium Level 5.1 mmol/L (3.5-5.1) Chloride Level 103 mmol/L (98-107) Carbon Dioxide Level 26 mmol/L (21-32) Anion Gap 9 (6-14) Blood Urea Nitrogen 71 mg/dL (8-26) Creatinine 3.0 mg/dL (0.7-1.3) Estimated GFR (Cockcroft-Gault) 20.3 Glucose Level 164 mg/dL (70-99) Calcium Level 8.0 mg/dL (8.5-10.1) Test 10/25/18 07:59 Glucose (Fingerstick) 215 mg/dL (70-99) Assessment and Plan Assessmemt and Plan Problems Medical Problems: (1) Acute on chronic renal insufficiency Status: Acute (2) CHF (congestive heart failure) Status: Acute (3) Hypoxemia Status: Acute (4) NSTEMI (non-ST elevated myocardial infarction) Status: Acute VIN WITH CR IMPROVED TO 3.0 CKD STAGE 3 WITH CR OF 1.5-2.0 ACUTE HYPOXIC RESP FAILURE NSTEMI CHF DIASTOLIC-ACUTE CAD HX WITH PTCA HTN HX-BETTER DM II HX MORBID OBESITY RIGHT ADRENAL ADENOMA NSTEMI Acute diastolic CHF CAD; PCI 3 stents in the past. HTN Hyperlipidemia DM2 Morbid obesity Suspect DEE DEE PLAN HOLDING WHIT-I INCREASE NORVASC RESUME LASIX MONITOR PULMONARY STATUS PULM EVAL CARDIOLOGY EVAL STOP IVF'S DVT prophylaxis Full code PT OT Discharge disposition pending He eventually needs an ischemic cardiac workup but difficult to do at this time with his creatinine so high Comment Review of Relevant I have reviewed the following items kristin (where applicable) has been applied. Labs Laboratory Tests Test 10/23/18 11:39 10/23/18 16:37 10/23/18 20:44 10/24/18 04:30 Glucose (Fingerstick) 190 mg/dL (70-99) 182 mg/dL (70-99) 177 mg/dL (70-99) White Blood Count 7.4 x10^3/uL (4.0-11.0) Red Blood Count 3.42 x10^6/uL (4.30-5.70) Hemoglobin 10.0 g/dL (13.0-17.5) Hematocrit 29.8 % (39.0-53.0) Mean Corpuscular Volume 87 fL (79-100) Mean Corpuscular Hemoglobin 29 pg (25-35) Mean Corpuscular Hemoglobin Concent 34 g/dL (31-37) Red Cell Distribution Width 13.9 % (11.5-14.5) Platelet Count 250 x10^3/uL (140-400) Neutrophils (%) (Auto) 66 % (31-73) Lymphocytes (%) (Auto) 21 % (24-48) Monocytes (%) (Auto) 9 % (0-9) Eosinophils (%) (Auto) 3 % (0-3) Basophils (%) (Auto) 1 % (0-3) Neutrophils # (Auto) 4.9 x10^3uL (1.8-7.7) Lymphocytes # (Auto) 1.5 x10^3/uL (1.0-4.8) Monocytes # (Auto) 0.7 x10^3/uL (0.0-1.1) Eosinophils # (Auto) 0.2 x10^3/uL (0.0-0.7) Basophils # (Auto) 0.0 x10^3/uL (0.0-0.2) Sodium Level 134 mmol/L (136-145) Potassium Level 4.6 mmol/L (3.5-5.1) Chloride Level 99 mmol/L (98-107) Carbon Dioxide Level 30 mmol/L (21-32) Anion Gap 5 (6-14) Blood Urea Nitrogen 72 mg/dL (8-26) Creatinine 3.5 mg/dL (0.7-1.3) Estimated GFR (Cockcroft-Gault) 17.0 Glucose Level 146 mg/dL (70-99) Calcium Level 8.2 mg/dL (8.5-10.1) Test 10/24/18 07:27 10/24/18 11:49 10/24/18 16:42 10/24/18 21:20 Glucose (Fingerstick) 138 mg/dL (70-99) 154 mg/dL (70-99) 175 mg/dL (70-99) 166 mg/dL (70-99) Test 10/25/18 04:30 10/25/18 07:59 White Blood Count 7.9 x10^3/uL (4.0-11.0) Red Blood Count 3.33 x10^6/uL (4.30-5.70) Hemoglobin 9.6 g/dL (13.0-17.5) Hematocrit 29.3 % (39.0-53.0) Mean Corpuscular Volume 88 fL (79-100) Mean Corpuscular Hemoglobin 29 pg (25-35) Mean Corpuscular Hemoglobin Concent 33 g/dL (31-37) Red Cell Distribution Width 13.5 % (11.5-14.5) Platelet Count 274 x10^3/uL (140-400) Neutrophils (%) (Auto) 73 % (31-73) Lymphocytes (%) (Auto) 15 % (24-48) Monocytes (%) (Auto) 9 % (0-9) Eosinophils (%) (Auto) 2 % (0-3) Basophils (%) (Auto) 1 % (0-3) Neutrophils # (Auto) 5.8 x10^3uL (1.8-7.7) Lymphocytes # (Auto) 1.2 x10^3/uL (1.0-4.8) Monocytes # (Auto) 0.7 x10^3/uL (0.0-1.1) Eosinophils # (Auto) 0.2 x10^3/uL (0.0-0.7) Basophils # (Auto) 0.0 x10^3/uL (0.0-0.2) Sodium Level 138 mmol/L (136-145) Potassium Level 5.1 mmol/L (3.5-5.1) Chloride Level 103 mmol/L (98-107) Carbon Dioxide Level 26 mmol/L (21-32) Anion Gap 9 (6-14) Blood Urea Nitrogen 71 mg/dL (8-26) Creatinine 3.0 mg/dL (0.7-1.3) Estimated GFR (Cockcroft-Gault) 20.3 Glucose Level 164 mg/dL (70-99) Calcium Level 8.0 mg/dL (8.5-10.1) Glucose (Fingerstick) 215 mg/dL (70-99) Laboratory Tests Test 10/24/18 11:49 10/24/18 16:42 10/24/18 21:20 10/25/18 04:30 Glucose (Fingerstick) 154 mg/dL (70-99) 175 mg/dL (70-99) 166 mg/dL (70-99) White Blood Count 7.9 x10^3/uL (4.0-11.0) Red Blood Count 3.33 x10^6/uL (4.30-5.70) Hemoglobin 9.6 g/dL (13.0-17.5) Hematocrit 29.3 % (39.0-53.0) Mean Corpuscular Volume 88 fL (79-100) Mean Corpuscular Hemoglobin 29 pg (25-35) Mean Corpuscular Hemoglobin Concent 33 g/dL (31-37) Red Cell Distribution Width 13.5 % (11.5-14.5) Platelet Count 274 x10^3/uL (140-400) Neutrophils (%) (Auto) 73 % (31-73) Lymphocytes (%) (Auto) 15 % (24-48) Monocytes (%) (Auto) 9 % (0-9) Eosinophils (%) (Auto) 2 % (0-3) Basophils (%) (Auto) 1 % (0-3) Neutrophils # (Auto) 5.8 x10^3uL (1.8-7.7) Lymphocytes # (Auto) 1.2 x10^3/uL (1.0-4.8) Monocytes # (Auto) 0.7 x10^3/uL (0.0-1.1) Eosinophils # (Auto) 0.2 x10^3/uL (0.0-0.7) Basophils # (Auto) 0.0 x10^3/uL (0.0-0.2) Sodium Level 138 mmol/L (136-145) Potassium Level 5.1 mmol/L (3.5-5.1) Chloride Level 103 mmol/L (98-107) Carbon Dioxide Level 26 mmol/L (21-32) Anion Gap 9 (6-14) Blood Urea Nitrogen 71 mg/dL (8-26) Creatinine 3.0 mg/dL (0.7-1.3) Estimated GFR (Cockcroft-Gault) 20.3 Glucose Level 164 mg/dL (70-99) Calcium Level 8.0 mg/dL (8.5-10.1) Test 10/25/18 07:59 Glucose (Fingerstick) 215 mg/dL (70-99) Medications Current Medications Albuterol/ Ipratropium (Duoneb) 3 ml 1X ONCE NEB Last administered on 10/19/18at 12:00; Start 10/19/18 at 11:45; Stop 10/19/18 at 11:46; Status DC Heparin Sodium (Porcine) (Heparin Sodium) 4,000 unit 1X ONCE IV Last administered on 10/19/18at 12:29; Start 10/19/18 at 12:30; Stop 10/19/18 at 12:31; Status DC Heparin Sodium/ Dextrose 500 ml @ 0 mls/hr CONT PRN IV SEE I/O RECORD Last administered on 10/22/18at 02:37; Start 10/19/18 at 12:30; Stop 10/22/18 at 15:06; Status DC Heparin Sodium (Porcine) (Heparin Sodium) 3,000 unit PRN Q6HRS PRN IV FOR UFH LEVEL LESS THAN 0.2 Last administered on 10/19/18at 20:34; Start 10/19/18 at 12:30; Stop 10/22/18 at 15:06; Status DC Info (Anti-Coagulation Monitoring By Pharmacy) 1 each PRN DAILY PRN MC SEE COMMENTS Last administered on 10/21/18at 09:18; Start 10/19/18 at 12:30; Stop 10/23/18 at 07:33; Status DC Furosemide (Lasix) 60 mg 1X ONCE IVP Last administered on 10/19/18at 13:00; Start 10/19/18 at 13:00; Stop 10/19/18 at 13:01; Status DC Ondansetron HCl (Zofran) 4 mg PRN Q8HRS PRN IV NAUSEA/VOMITING; Start 10/19/18 at 13:30; Stop 10/20/18 at 13:29; Status DC Morphine Sulfate (Morphine Sulfate) 2 mg PRN Q2HR PRN IV PAIN; Start 10/19/18 at 13:30; Stop 10/20/18 at 13:29; Status DC Nitroglycerin (Nitrostat) 0.4 mg PRN Q5MIN PRN SL CHEST PAIN; Start 10/19/18 at 13:30; Stop 10/20/18 at 13:29; Status DC Albuterol/ Ipratropium (Duoneb) 3 ml RTQID NEB ; Start 10/19/18 at 16:00; Stop 10/19/18 at 16:00; Status DC Amlodipine Besylate (Norvasc) 5 mg 1X ONCE PO Last administered on 10/19/18 13:53; Start 10/19/18 at 13:30; Stop 10/19/18 at 13:31; Status DC Nitroglycerin (Nitro-Bid Oint) 0.5 inch Q6HRS TP Last administered on 10/24/18 12:35; Start 10/19/18 at 14:00; Stop 10/24/18 at 15:27; Status DC Aspirin (Ecotrin) 81 mg DAILYWBKFT PO Last administered on 10/25/18 08:40; Start 10/19/18 at 14:00 Metoprolol Tartrate (Lopressor) 25 mg BID PO Last administered on 10/25/18 08:40; Start 10/19/18 at 14:00 Atorvastatin Calcium (Lipitor) 40 mg QHS PO Last administered on 10/24/18 21:21; Start 10/19/18 at 21:00 Sodium Chloride (Normal Saline Flush 3ml) 3 ml QSHIFT PRN IV AFTER MEDS AND BLOOD DRAWS; Start 10/19/18 at 15:15 Ondansetron HCl (Zofran) 4 mg PRN Q4HRS PRN IV NAUSEA/VOMITING Last adminis tered on 10/22/18 02:09; Start 10/19/18 at 15:15 Acetaminophen (Tylenol) 650 mg PRN Q4HRS PRN PO TEMP OVER 100.4F OR MILD PAIN L ast administered on 10/22/18at 14:10; Start 10/19/18 at 15:15 Al Hydroxide/Mg Hydroxide (Mylanta Plus Xs) 30 ml PRN DAILY PRN PO HEARTBURN / GAS; Start 10/19/18 at 15:15 Clonidine HCl (Catapres) 0.1 mg PRN Q6HRS PRN PO SBP>160 OR DBP>90 Last administered on 10/23/18at 10:34; Start 10/19/18 at 15:15; Stop 10/24/18 at 15:27; Status DC Docusate Sodium (Colace) 100 mg PRN BID PRN PO CONSTIPATION Last administered on 10/21/18 23:21; Start 10/19/18 at 15:15 Albuterol/ Ipratropium (Duoneb) 3 ml Q4HRS NEB Last administered on 10/25/18at 07:55; Start 10/19/18 at 16:00 Guaifenesin (Robitussin) 200 mg PRN Q4HRS PRN PO COUGH; Start 10/19/18 at 15:15 Enoxaparin Sodium (Lovenox 40mg Syringe) 40 mg DAILY SQ ; Start 10/20/18 at 09:00; Stop 10/20/18 at 09:00; Status DC Sodium Bicarbonate (Sodium Bicarb Adult 8.4% Syr) 50 meq 1X ONCE IV Last administered on 10/19/18at 16:42; Start 10/19/18 at 16:30; Stop 10/19/18 at 16:33; Status DC Insulin Human Lispro (HumaLOG) 0-7 UNITS TIDWMEALS SQ Last administered on 10/25/18at 08:44; Start 10/19/18 at 18:00 Dextrose (Dextrose 50%-Water Syringe) 12.5 gm PRN Q15MIN PRN IV SEE COMMENTS; Start 10/19/18 at 18:00 Furosemide (Lasix) 40 mg Q8HRS IVP Last administered on 10/21/18 06:22; Start 10/20/18 at 14:00; Stop 10/21/18 at 16:45; Status DC Amlodipine Besylate (Norvasc) 5 mg DAILY PO Last administered on 10/25/18at 08:39; Start 10/21/18 at 12:30; Stop 10/25/18 at 09:33; Status DC Tamsulosin HCl (Flomax) 0.4 mg QHS PO Last administered on 10/24/18 21:21; Start 10/21/18 at 21:00 Ropinirole HCl (Requip) 2 mg 1X ONCE PO Last administered on 10/22/18 00:58; Start 10/22/18 at 01:00; Stop 10/22/18 at 01:01; Status DC Magnesium Sulfate 50 ml @ 25 mls/hr 1X ONCE IV Last administered on 10/22/18at 01:11; Start 10/22/18 at 01:00; Stop 10/22/18 at 02:59; Status DC Clopidogrel Bisulfate (Plavix) 75 mg DAILYWBKFT PO Last administered on 10/23/18 08:56; Start 10/23/18 at 08:00; Stop 10/24/18 at 10:05; Status DC Insulin Glargine (Lantus) 35 units QHS SQ Last administered on 10/24/18 21:22; Start 10/22/18 at 21:00 Sodium Chloride 1,000 ml @ 100 mls/hr Q10H IV Last administered on 10/25/18 06:30; Start 10/24/18 at 10:30; Stop 10/25/18 at 09:55; Status DC Amlodipine Besylate (Norvasc) 5 mg 1X ONCE PO Last administered on 10/24/18at 15:50; Start 10/24/18 at 15:30; Stop 10/24/18 at 15:31; Status DC Isosorbide Mononitrate (Imdur) 60 mg DAILY PO Last administered on 10/25/18at 08:40; Start 10/24/18 at 16:00 Hydralazine HCl (Apresoline Inj) 10 mg PRN Q4HRS PRN IVP ELEVATED BP, SEE COMMENTS Last administered on 10/24/18 22:22; Start 10/24/18 at 15:30 Furosemide (Lasix) 40 mg 1X ONCE IVP Last administered on 10/25/18 09:37; Start 10/25/18 at 09:00; Stop 10/25/18 at 09:01; Status DC Furosemide (Lasix) 40 mg BID92 PO ; Start 10/25/18 at 14:00 Amlodipine Besylate (Norvasc) 10 mg DAILY PO ; Start 10/26/18 at 09:00 Amlodipine Besylate (Norvasc) 5 mg 1X ONCE PO ; Start 10/25/18 at 10:00; Stop 10/25/18 at 10:01; Status DC Active Scripts Active Reported Metoprolol Tartrate 25 Mg Tablet 12.5 Mg PO QHS Fish Oil 1,000 mg Softgel ([place]-3S/Dha/Epa/Fish Oil) 1 Each Capsule 1 Each PO Veltassa (Patiromer Calcium Sorbitex) 8.4 Gm Powd.pack 8.4 Gm PO DAILY Vitamin D-3 (Cholecalciferol (Vitamin D3)) 2,000 Unit Tablet 5,000 Unit PO DAILY Aspirin 325 Mg Tablet 1 Tab PO DAILY Amlodipine Besylate 5 Mg Tablet 5 Mg PO DAILY Metoprolol Tartrate 25 Mg Tablet 1 Tab PO DAILY Atorvastatin Calcium 40 Mg Tablet 1 Tab PO QHS Basaglar Heshamikpen U-100 (Insulin Glargine,Hum.rec.anlog) 100 Unit/1 Ml Insuln.pen 35 Unit SQ DAILY Lisinopril 20 Mg Tablet 40 Mg PO DAILY Vitals/I & O Vital Sign - Last 24 Hours 10/24/18 10/24/18 10/24/18 10/24/18 11:00 12:02 12:35 15:00 Temp 98.4 98.2 98.4 98.2 Pulse 53 53 69 Resp 18 18 B/P (MAP) 155/66 (95) 155/66 176/79 (111) Pulse Ox 99 98 97 O2 Delivery Nasal Cannula Nasal Cannula Nasal Cannula O2 Flow Rate 3.0 2.0 3.0 10/24/18 10/24/18 10/24/18 10/24/18 15:50 15:51 15:57 19:19 Pulse 69 69 B/P (MAP) 176/79 176/79 Pulse Ox 95 O2 Delivery Nasal Cannula Nasal Cannula O2 Flow Rate 2.0 2.0 10/24/18 10/24/18 10/24/18 10/24/18 19:23 20:00 21:21 22:00 Temp 98.3 98.5 98.3 98.5 Pulse 78 78 85 Resp 20 B/P (MAP) 105/66 (79) 105/66 149/67 (94) Pulse Ox 98 94 O2 Delivery Nasal Cannula Nasal Cannula Nasal Cannula O2 Flow Rate 3.0 3.0 2.0 10/24/18 10/25/18 10/25/18 10/25/18 22:22 03:00 07:00 07:57 Temp 98.3 97.9 98.3 97.9 Pulse 85 84 72 B/P (MAP) 203/87 155/70 (98) 169/74 (105) Pulse Ox 94 97 96 O2 Delivery Nasal Cannula Nasal Cannula Nasal Cannula O2 Flow Rate 2.0 3.0 2.0 10/25/18 10/25/18 10/25/18 08:39 08:40 08:40 Pulse 72 72 72 B/P (MAP) 169/74 169/74 169/74 Intake and Output 10/24/18 10/24/18 10/25/18 15:00 23:00 07:00 Intake Total 675 ml 1955 ml Output Total 1650 ml Balance 675 ml 305 ml FELA KANG III DO October 25, 2018 10:41
--- NOTE | 2018-10-25 11:26 | NUR ---
SS following up with discharge planning. SS discussed with pt's RN and pt's spouse via phone. Pt's spouse concerned with pt's medical condition. Discussed referral to [facility]. Pt's spouse is agreeable to referral. SS phoned and faxed referral to [facility], ; fax [phone]. SS will await acceptance decision and insurance authorization and will proceed accordingly.
--- NOTE | 2018-10-25 12:28 | NUR ---
SS following up with discharge planning. SS received notification that pt is accepted and authorized at [facility]. Pt's spouse and RN notified. SS notified physician. Pt and spouse in agreement with transfer.
--- NOTE | 2018-10-25 13:26 | RAD ---
Portable chest, 10/25/2018: HISTORY: Congestive heart failure Comparison is made to a study from 10/22/2018. The heart is enlarged. The pulmonary vascularity is within normal limits. There is a moderate unchanged left basilar opacity compatible with a combination of pleural fluid and underlying atelectasis/infiltrate. There is persistent blunting of the right lateral costophrenic angle compatible with a small amount of pleural fluid. The upper lung garcia remain clear. No new abnormality is detected. IMPRESSION: No significant change since 10/22/2018. Electronically signed by: Cory Kelsey MD (10/25/2018 1:23 PM) [facility]
[2018-10-25] MEDS: DOCUSATE SODIUM 100 MG CAPSULE. PO PRN (14:02)
[2018-10-25] MEDS: FUROSEMIDE 40 MG TABLET. PO SCH (14:02)
--- NOTE | 2018-10-25 14:16 | CARD ---
MR#: [id number] Date of Study: 10/25/2018 Ordering Physician: KARINA NUNEZ, Referring Physician: JAQUAN MENDEZ Tech: Veronica Pham CRISSY APPROVED REPORT EXAM: LIMITED Two-dimensional and M-mode echocardiogram with Doppler and color Doppler. Other Information Quality : AverageHR: 70bpm Rhythm : NSR INDICATION Follow up LVEF 2D DIMENSIONS RVDd3.1 (2.9-3.5cm)Left Atrium(2D)4.7 (1.6-4.0cm) IVSd1.5 (0.7-1.1cm)Aortic Root(2D)2.6 (2.0-3.7cm) LVDd5.5 (3.9-5.9cm)PWd1.1 (0.7-1.1cm) LVDs3.7 (2.5-4.0cm)FS (%) 32.7 % SV89.3 mlLVEF(%)60.5 (>50%) Tricuspid Valve TR P. [id number] TR Peak [id number] LEFT VENTRICLE The left ventricle is normal size. Proximal septal thickening is noted. The left ventricular systolic function is normal. The Ejection Fraction is 55-60%. There is normal LV segmental wall motion. RIGHT VENTRICLE The right ventricle is normal size. There is normal right ventricular wall thickness. The right ventr icular systolic function is normal. ATRIA The left atrium is moderately dilated. The right atrium is mildly dilated. AORTIC VALVE not interrogated MITRAL VALVE not interrogated TRICUSPID VALVE The tricuspid valve is normal in structure and function. Doppler and Color Flow revealed mild tricusp id regurgitation. There is moderate pulmonary hypertension. The PA pressure was estimated at 57 mmHg. GREAT VESSELS The aortic root is normal in size. PERICARDIAL EFFUSION There is no evidence of significant pericardial effusion. Critical Notification Critical Value: No <Conclusion> The left ventricular systolic function is normal. The Ejection Fraction is 55-60%. There is normal LV segmental wall motion. The left atrium is moderately dilated. Mild tricuspid regurgitation. There is moderate pulmonary hypertension. The PA pressure was estimated at 57 mmHg. There is no evidence of significant pericardial effusion. Signed by : Chapito Lombardo, Electronically Approved : 10/25/2018 14:16:35
[2018-10-25] MEDS: ZOLPIDEM 5 MG TABLET. PO PRN (21:25)
[2018-10-25] MEDS: ATORVASTATIN CALCIUM 40 MG TABLET. PO SCH (21:26)
[2018-10-25] MEDS: TAMSULOSIN 0.4 MG CAP.ER.24H. PO SCH (21:26)
[2018-10-25] MEDS: INSULIN GLARGINE 300 UNITS/3 ML INSULN.PEN. SQ SCH (21:30)
--- NOTE | 2018-10-25 23:30 | NUR ---
Simple mask at 5L was applied to pt r/t severe DEE DEE, pts O2 was 58% on 2L, pt is a severe mouth breather. Pt was educated on importance of compliance with simple mask, new oxygen finger probe applied, will continue to monitor for status changes.
[2018-10-26] VITALS (7 sets, daily range): BP systolic 150–177; BP diastolic 55–80
[2018-10-26] MEDS: hydrALAZINE 20 MG/ML VIAL. IVP PRN ×2 (03:41→23:17)
[2018-10-26] MEDS: IPRATRPIUM/ALBUTEROL 0.5/2.5MG 3 ML NEBU. NEB SCH ×6 (04:00→20:39)
[2018-10-26 04:41] LABS: BASO % 1 % (0-3); EOS # 0.2 x10^3/uL (0.0-0.7); EOS % 3 % (0-3); HEMATOCRIT 30.1 % (39.0-53.0); HEMOGLOBIN 9.8 g/dL (13.0-17.5); LYMPH # 1.3 x10^3/uL (1.0-4.8); LYMPH % 18 % (24-48); MEAN CORPUSCULAR HEMOGLOBIN 29 pg (25-35); MEAN CORPUSCULAR HGB CONC 33 g/dL (31-37); MEAN CORPUSCULAR VOLUME 88 fL (79-100); MONO # 0.7 x10^3/uL (0.0-1.1); MONO % 10 % (0-9); NEUT % 68 % (31-73); PLATELET COUNT 290 x10^3/uL (140-400); RED BLOOD COUNT 3.43 x10^6/uL (4.30-5.70); RED CELL DISTRIBUTION WIDTH 13.7 % (11.5-14.5); WHITE BLOOD COUNT 7.3 x10^3/uL (4.0-11.0)
[2018-10-26 04:52] LABS: CALCIUM 8.5 mg/dL (8.5-10.1); CREATININE 3.1 mg/dL (0.7-1.3); GFR 19.6
[2018-10-26] MEDS: INSULIN LISPRO 300 UNITS/3 ML INSULN.PEN. SQ SCH ×3 (08:00→17:00)
[2018-10-26] MEDS ORDERED: REGADENOSON 0.4 MG/5 ML DISP.SYRIN. IV ONE (08:15)
[2018-10-26] MEDS ORDERED: amLODIPine BESYLATE 10 MG TABLET PO SCH (09:00)
--- NOTE | 2018-10-26 09:36 | PDOC ---
PULMONARY PROGRESS NOTES Subjective PT NOT SOA Vitals Vital Signs Date Time Temp Pulse Resp B/P (MAP) Pulse Ox O2 Delivery O2 Flow Rate FiO2 10/26/18 07:45 98 Simple Mask 5.0 10/26/18 07:00 98.5 87 22 166/70 (102) 98.5 ROS: No Nausea, No Abdominal Pain, No Increase Cough General: Alert, No acute distress Lungs: Clear Cardiovascular: S1 Abdomen: Soft Neuro Exam: Alert Extremities: Other (1+edema) Labs Laboratory Tests Test 10/24/18 11:49 10/24/18 16:42 10/24/18 21:20 10/25/18 04:30 Glucose (Fingerstick) 154 mg/dL (70-99) 175 mg/dL (70-99) 166 mg/dL (70-99) White Blood Count 7.9 x10^3/uL (4.0-11.0) Red Blood Count 3.33 x10^6/uL (4.30-5.70) Hemoglobin 9.6 g/dL (13.0-17.5) Hematocrit 29.3 % (39.0-53.0) Mean Corpuscular Volume 88 fL (79-100) Mean Corpuscular Hemoglobin 29 pg (25-35) Mean Corpuscular Hemoglobin Concent 33 g/dL (31-37) Red Cell Distribution Width 13.5 % (11.5-14.5) Platelet Count 274 x10^3/uL (140-400) Neutrophils (%) (Auto) 73 % (31-73) Lymphocytes (%) (Auto) 15 % (24-48) Monocytes (%) (Auto) 9 % (0-9) Eosinophils (%) (Auto) 2 % (0-3) Basophils (%) (Auto) 1 % (0-3) Neutrophils # (Auto) 5.8 x10^3uL (1.8-7.7) Lymphocytes # (Auto) 1.2 x10^3/uL (1.0-4.8) Monocytes # (Auto) 0.7 x10^3/uL (0.0-1.1) Eosinophils # (Auto) 0.2 x10^3/uL (0.0-0.7) Basophils # (Auto) 0.0 x10^3/uL (0.0-0.2) Sodium Level 138 mmol/L (136-145) Potassium Level 5.1 mmol/L (3.5-5.1) Chloride Level 103 mmol/L (98-107) Carbon Dioxide Level 26 mmol/L (21-32) Anion Gap 9 (6-14) Blood Urea Nitrogen 71 mg/dL (8-26) Creatinine 3.0 mg/dL (0.7-1.3) Estimated GFR (Cockcroft-Gault) 20.3 Glucose Level 164 mg/dL (70-99) Calcium Level 8.0 mg/dL (8.5-10.1) Test 10/25/18 07:59 10/25/18 12:18 10/25/18 17:01 10/25/18 21:02 Glucose (Fingerstick) 215 mg/dL (70-99) 133 mg/dL (70-99) 133 mg/dL (70-99) 163 mg/dL (70-99) Test 10/26/18 04:30 10/26/18 07:12 White Blood Count 7.3 x10^3/uL (4.0-11.0) Red Blood Count 3.43 x10^6/uL (4.30-5.70) Hemoglobin 9.8 g/dL (13.0-17.5) Hematocrit 30.1 % (39.0-53.0) Mean Corpuscular Volume 88 fL (79-100) Mean Corpuscular Hemoglobin 29 pg (25-35) Mean Corpuscular Hemoglobin Concent 33 g/dL (31-37) Red Cell Distribution Width 13.7 % (11.5-14.5) Platelet Count 290 x10^3/uL (140-400) Neutrophils (%) (Auto) 68 % (31-73) Lymphocytes (%) (Auto) 18 % (24-48) Monocytes (%) (Auto) 10 % (0-9) Eosinophils (%) (Auto) 3 % (0-3) Basophils (%) (Auto) 1 % (0-3) Neutrophils # (Auto) 5.0 x10^3uL (1.8-7.7) Lymphocytes # (Auto) 1.3 x10^3/uL (1.0-4.8) Monocytes # (Auto) 0.7 x10^3/uL (0.0-1.1) Eosinophils # (Auto) 0.2 x10^3/uL (0.0-0.7) Basophils # (Auto) 0.0 x10^3/uL (0.0-0.2) Sodium Level 139 mmol/L (136-145) Potassium Level 5.0 mmol/L (3.5-5.1) Chloride Level 103 mmol/L (98-107) Carbon Dioxide Level 27 mmol/L (21-32) Anion Gap 9 (6-14) Blood Urea Nitrogen 71 mg/dL (8-26) Creatinine 3.1 mg/dL (0.7-1.3) Estimated GFR (Cockcroft-Gault) 19.6 Glucose Level 142 mg/dL (70-99) Calcium Level 8.5 mg/dL (8.5-10.1) Glucose (Fingerstick) 135 mg/dL (70-99) Laboratory Tests Test 10/25/18 12:18 10/25/18 17:01 10/25/18 21:02 10/26/18 04:30 Glucose (Fingerstick) 133 mg/dL (70-99) 133 mg/dL (70-99) 163 mg/dL (70-99) White Blood Count 7.3 x10^3/uL (4.0-11.0) Red Blood Count 3.43 x10^6/uL (4.30-5.70) Hemoglobin 9.8 g/dL (13.0-17.5) Hematocrit 30.1 % (39.0-53.0) Mean Corpuscular Volume 88 fL (79-100) Mean Corpuscular Hemoglobin 29 pg (25-35) Mean Corpuscular Hemoglobin Concent 33 g/dL (31-37) Red Cell Distribution Width 13.7 % (11.5-14.5) Platelet Count 290 x10^3/uL (140-400) Neutrophils (%) (Auto) 68 % (31-73) Lymphocytes (%) (Auto) 18 % (24-48) Monocytes (%) (Auto) 10 % (0-9) Eosinophils (%) (Auto) 3 % (0-3) Basophils (%) (Auto) 1 % (0-3) Neutrophils # (Auto) 5.0 x10^3uL (1.8-7.7) Lymphocytes # (Auto) 1.3 x10^3/uL (1.0-4.8) Monocytes # (Auto) 0.7 x10^3/uL (0.0-1.1) Eosinophils # (Auto) 0.2 x10^3/uL (0.0-0.7) Basophils # (Auto) 0.0 x10^3/uL (0.0-0.2) Sodium Level 139 mmol/L (136-145) Potassium Level 5.0 mmol/L (3.5-5.1) Chloride Level 103 mmol/L (98-107) Carbon Dioxide Level 27 mmol/L (21-32) Anion Gap 9 (6-14) Blood Urea Nitrogen 71 mg/dL (8-26) Creatinine 3.1 mg/dL (0.7-1.3) Estimated GFR (Cockcroft-Gault) 19.6 Glucose Level 142 mg/dL (70-99) Calcium Level 8.5 mg/dL (8.5-10.1) Test 10/26/18 07:12 Glucose (Fingerstick) 135 mg/dL (70-99) Medications Active Scripts Medications Dose Route/Sig Max Daily Dose Days Date Category Metoprolol Tartrate 25 Mg Tablet 12.5 Mg PO QHS 10/19/18 Reported Fish Oil 1,000 mg Softgel ([place]-3S/Dha/Epa/Fish Oil) 1 Each Capsule 1 Each PO 10/19/18 Reported [place] (Patiromer Calcium Sorbitex) 8.4 Gm Powd.pack 8.4 Gm PO DAILY 10/19/18 Reported Vitamin D-3 (Cholecalciferol (Vitamin D3)) 2,000 Unit Tablet 5,000 Unit PO DAILY 10/19/18 Reported Aspirin 325 Mg Tablet 1 Tab PO DAILY 10/19/18 Reported Amlodipine Besylate 5 Mg Tablet 5 Mg PO DAILY 10/19/18 Reported Metoprolol Tartrate 25 Mg Tablet 1 Tab PO DAILY 10/19/18 Reported Atorvastatin Calcium 40 Mg Tablet 1 Tab PO QHS 10/19/18 Reported Suzanne Parra U-100 (Insulin Glargine,Hum.rec.anlog) 100 Unit/1 Ml Insuln.pen 35 Unit SQ DAILY 10/19/18 Reported Lisinopril 20 Mg Tablet 40 Mg PO DAILY 06/03/13 Reported Comments cxr /6 IMPROVED RIGHT EFFUSION/ SMALL- MODERATE LEFT EFFUSION Impression . 1. Acute hypoxic respiratory failure secondary to suspected [id number] diastolic heart failure and bilateral pleural effusions. Clinically, less likely thromboembolic disease. His venous Dopplers of the lower extremities were negative for DVT. Could not lay flat for V/Q/. No need for further work up 2. History of coronary artery disease, 3-vessel disease with percutaneous coronary intervention of circumflex in the past and now with a non-ST myocardial infarction. 3. Suspected obstructive sleep apnea. 4. Chronic kidney disease, which makes it difficult to diurese. CT CHEST IMPRESSION: 1. Small to moderate bilateral pleural effusions. 2. Bilateral infiltrates/atelectasis. 3. Right adrenal mass. 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 Plan . OK TO TRANSFER IN AM CXR NO CHANGE NO NEED FOR THORACENTESIS DIURESE OUT PT SLEEP STUDY FOLLOW CARD INPUT NHI FERNÁNDEZ MD October 26, 2018 09:36
--- NOTE | 2018-10-26 11:00 | PDOC ---
KARINA NUNEZ PROFESSOR OF PATHOLOGY 10/26/18 1100: CARDIO Progress Notes Date and Time Date of Service 10/26/2018 Time of Evaluation 1040 Subjective Subjective: No Chest Pain, No shortness of breath, No Palpitations, Other (denies any pain) Vitals Vitals Vital Signs Date Time Temp Pulse Resp B/P (MAP) Pulse Ox O2 Delivery O2 Flow Rate FiO2 10/26/18 10:45 98.4 88 22 150/55 (86) 95 Nasal Cannula 23.0 98.4 Weight Weight [ ] Input and Output Intake and Output Intake and Output 10/26/18 07:00 Intake Total 400 ml Output Total 2050 ml Balance -1650 ml Intake Oral 50 ml IV Total 350 ml Output Urine Total 2050 ml Laboratory Labs Laboratory Tests Test 10/25/18 12:18 10/25/18 17:01 10/25/18 21:02 10/26/18 04:30 Glucose (Fingerstick) 133 mg/dL (70-99) 133 mg/dL (70-99) 163 mg/dL (70-99) White Blood Count 7.3 x10^3/uL (4.0-11.0) Red Blood Count 3.43 x10^6/uL (4.30-5.70) Hemoglobin 9.8 g/dL (13.0-17.5) Hematocrit 30.1 % (39.0-53.0) Mean Corpuscular Volume 88 fL (79-100) Mean Corpuscular Hemoglobin 29 pg (25-35) Mean Corpuscular Hemoglobin Concent 33 g/dL (31-37) Red Cell Distribution Width 13.7 % (11.5-14.5) Platelet Count 290 x10^3/uL (140-400) Neutrophils (%) (Auto) 68 % (31-73) Lymphocytes (%) (Auto) 18 % (24-48) Monocytes (%) (Auto) 10 % (0-9) Eosinophils (%) (Auto) 3 % (0-3) Basophils (%) (Auto) 1 % (0-3) Neutrophils # (Auto) 5.0 x10^3uL (1.8-7.7) Lymphocytes # (Auto) 1.3 x10^3/uL (1.0-4.8) Monocytes # (Auto) 0.7 x10^3/uL (0.0-1.1) Eosinophils # (Auto) 0.2 x10^3/uL (0.0-0.7) Basophils # (Auto) 0.0 x10^3/uL (0.0-0.2) Sodium Level 139 mmol/L (136-145) Potassium Level 5.0 mmol/L (3.5-5.1) Chloride Level 103 mmol/L (98-107) Carbon Dioxide Level 27 mmol/L (21-32) Anion Gap 9 (6-14) Blood Urea Nitrogen 71 mg/dL (8-26) Creatinine 3.1 mg/dL (0.7-1.3) Estimated GFR (Cockcroft-Gault) 19.6 Glucose Level 142 mg/dL (70-99) Calcium Level 8.5 mg/dL (8.5-10.1) Test 10/26/18 07:12 Glucose (Fingerstick) 135 mg/dL (70-99) Review of Systems Constitutional: yes: weakness, alert, oriented Ears/Nose/Throat: Yes: no symptom reported Pulmonary: Yes dyspnea Cardiovascular: Yes no symptom reported Gastrointestional: Yes: constipation Genitourinary: Yes: no symptom reported Musculoskeletal: Yes: muscle stiffness Skin: Yes no symptom reported Psychiatric/Neurological: Yes: no symptom reported Endocrine: Yes: no symptom reported Physical Exam HEENT: Neck Supple W Full Motion Chest: Symmetric LUNGS: Other (diminished basilar crackles) Heart: S1S2, RRR (SR no significant ectopies) Abdomen: Soft N/T, Other (obese) Extremities: Other (2+ bilateral LE edema ) Neurology: alert, oriented, follow commands Assessment Assessment 1. NSTEMI: LBBB, Trop peak at 1.6. Ischemia could not be ruled out. EF nml. EF and WM nml. Remains CP free. 2. Acute diastolic CHF: refractory, appears compensated today 3. CAD; PCI 3 stents in the past. 4. HTN: better 5. Hyperlipidemia 6. DM2 7. VIN on CKD: BUN/Cr at 71/3.1. Nephrology following 8. Morbid obesity 9. Suspect DEE DEE: nocturnal desat study inconclusive. Per staff noted apneic episode the other night. Recommendations 1. Continue ASA. MPI pending today 2. Defer lasix to nephrology. Continue norvasc, may increase if BP remains labile. Continue BB and imdur. 3. Holding ACEi 4. Continue with secondary prevention. 5. Will need outpt DEE DEE workup. 6. May transfer to [facility] res[facility] plavix pending MPI. JACK REAVES MD 10/26/18 1308: CARDIO Progress Notes Assessment Assessment Patient seen and examined. Agree with WELT STITCHER's assessment and plan. Acute on chronic diastolic heart failure better compensated Lexiscan nuclear stress test to evaluate patient's non-STEMI which is most probably demand ischemia is pending (2 day protocol) Transferred to [facility] if there is no ischemia Continue current medical regimen KARINA NUNEZ APRN October 26, 2018 11:00 JACK REAVES MD October 26, 2018 13:08
--- NOTE | 2018-10-26 11:51 | PDOC ---
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 Obesity Tobacco Abuse Hyperlipidemia HTN BPH Acute hypoxic respiratory failure - 2/2 [id number] diastolic heart failure and bilateral pleural effusions Coronary artery disease s/p 3-vessel disease with percutaneous coronary intervention of circumflex in the past History of Present Illness History of Present Illness Patient seen and examined MPI in progress as patient was seen Discussed with nurse Patient well appearing Cr maintained resumed diuretics, IVF stopped Vitals Vitals Vital Signs Date Time Temp Pulse Resp B/P (MAP) Pulse Ox O2 Delivery O2 Flow Rate FiO2 10/26/18 10:45 98.4 88 22 150/55 (86) 95 Nasal Cannula 23.0 98.4 Physical Exam General: Alert, Oriented X3 Heart: Regular rate Lungs: Clear Abdomen: Soft, No tenderness Extremities: Normal pulses, Other (mild edema +2/4) Skin: No breakdown, Other (Severe right arm bruising noted) Labs LABS Laboratory Tests Test 10/25/18 12:18 10/25/18 17:01 10/25/18 21:02 10/26/18 04:30 Glucose (Fingerstick) 133 mg/dL (70-99) 133 mg/dL (70-99) 163 mg/dL (70-99) White Blood Count 7.3 x10^3/uL (4.0-11.0) Red Blood Count 3.43 x10^6/uL (4.30-5.70) Hemoglobin 9.8 g/dL (13.0-17.5) Hematocrit 30.1 % (39.0-53.0) Mean Corpuscular Volume 88 fL (79-100) Mean Corpuscular Hemoglobin 29 pg (25-35) Mean Corpuscular Hemoglobin Concent 33 g/dL (31-37) Red Cell Distribution Width 13.7 % (11.5-14.5) Platelet Count 290 x10^3/uL (140-400) Neutrophils (%) (Auto) 68 % (31-73) Lymphocytes (%) (Auto) 18 % (24-48) Monocytes (%) (Auto) 10 % (0-9) Eosinophils (%) (Auto) 3 % (0-3) Basophils (%) (Auto) 1 % (0-3) Neutrophils # (Auto) 5.0 x10^3uL (1.8-7.7) Lymphocytes # (Auto) 1.3 x10^3/uL (1.0-4.8) Monocytes # (Auto) 0.7 x10^3/uL (0.0-1.1) Eosinophils # (Auto) 0.2 x10^3/uL (0.0-0.7) Basophils # (Auto) 0.0 x10^3/uL (0.0-0.2) Sodium Level 139 mmol/L (136-145) Potassium Level 5.0 mmol/L (3.5-5.1) Chloride Level 103 mmol/L (98-107) Carbon Dioxide Level 27 mmol/L (21-32) Anion Gap 9 (6-14) Blood Urea Nitrogen 71 mg/dL (8-26) Creatinine 3.1 mg/dL (0.7-1.3) Estimated GFR (Cockcroft-Gault) 19.6 Glucose Level 142 mg/dL (70-99) Calcium Level 8.5 mg/dL (8.5-10.1) Test 10/26/18 07:12 Glucose (Fingerstick) 135 mg/dL (70-99) Review of Systems Review of Systems Patient denies Abdominal pain Patient denies [place] Assessment and Plan Assessmemt and Plan Problems Medical Problems: (1) Acute on chronic renal insufficiency Status: Acute (2) CHF (congestive heart failure) Status: Acute (3) Hypoxemia Status: Acute (4) NSTEMI (non-ST elevated myocardial infarction) Status: Acute Assessment: NSTEMI (non-ST elevated myocardial infarction) CHF (congestive heart failure) 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 Labs Laboratory Tests Test 10/24/18 11:49 10/24/18 16:42 10/24/18 21:20 10/25/18 04:30 Glucose (Fingerstick) 154 mg/dL (70-99) 175 mg/dL (70-99) 166 mg/dL (70-99) White Blood Count 7.9 x10^3/uL (4.0-11.0) Red Blood Count 3.33 x10^6/uL (4.30-5.70) Hemoglobin 9.6 g/dL (13.0-17.5) Hematocrit 29.3 % (39.0-53.0) Mean Corpuscular Volume 88 fL (79-100) Mean Corpuscular Hemoglobin 29 pg (25-35) Mean Corpuscular Hemoglobin Concent 33 g/dL (31-37) Red Cell Distribution Width 13.5 % (11.5-14.5) Platelet Count 274 x10^3/uL (140-400) Neutrophils (%) (Auto) 73 % (31-73) Lymphocytes (%) (Auto) 15 % (24-48) Monocytes (%) (Auto) 9 % (0-9) Eosinophils (%) (Auto) 2 % (0-3) Basophils (%) (Auto) 1 % (0-3) Neutrophils # (Auto) 5.8 x10^3uL (1.8-7.7) Lymphocytes # (Auto) 1.2 x10^3/uL (1.0-4.8) Monocytes # (Auto) 0.7 x10^3/uL (0.0-1.1) Eosinophils # (Auto) 0.2 x10^3/uL (0.0-0.7) Basophils # (Auto) 0.0 x10^3/uL (0.0-0.2) Sodium Level 138 mmol/L (136-145) Potassium Level 5.1 mmol/L (3.5-5.1) Chloride Level 103 mmol/L (98-107) Carbon Dioxide Level 26 mmol/L (21-32) Anion Gap 9 (6-14) Blood Urea Nitrogen 71 mg/dL (8-26) Creatinine 3.0 mg/dL (0.7-1.3) Estimated GFR (Cockcroft-Gault) 20.3 Glucose Level 164 mg/dL (70-99) Calcium Level 8.0 mg/dL (8.5-10.1) Test 10/25/18 07:59 5/9/19 12:18 10/25/18 17:01 10/25/18 21:02 Glucose (Fingerstick) 215 mg/dL (70-99) 133 mg/dL (70-99) 133 mg/dL (70-99) 163 mg/dL (70-99) Test 10/26/18 04:30 10/26/18 07:12 White Blood Count 7.3 x10^3/uL (4.0-11.0) Red Blood Count 3.43 x10^6/uL (4.30-5.70) Hemoglobin 9.8 g/dL (13.0-17.5) Hematocrit 30.1 % (39.0-53.0) Mean Corpuscular Volume 88 fL (79-100) Mean Corpuscular Hemoglobin 29 pg (25-35) Mean Corpuscular Hemoglobin Concent 33 g/dL (31-37) Red Cell Distribution Width 13.7 % (11.5-14.5) Platelet Count 290 x10^3/uL (140-400) Neutrophils (%) (Auto) 68 % (31-73) Lymphocytes (%) (Auto) 18 % (24-48) Monocytes (%) (Auto) 10 % (0-9) Eosinophils (%) (Auto) 3 % (0-3) Basophils (%) (Auto) 1 % (0-3) Neutrophils # (Auto) 5.0 x10^3uL (1.8-7.7) Lymphocytes # (Auto) 1.3 x10^3/uL (1.0-4.8) Monocytes # (Auto) 0.7 x10^3/uL (0.0-1.1) Eosinophils # (Auto) 0.2 x10^3/uL (0.0-0.7) Basophils # (Auto) 0.0 x10^3/uL (0.0-0.2) Sodium Level 139 mmol/L (136-145) Potassium Level 5.0 mmol/L (3.5-5.1) Chloride Level 103 mmol/L (98-107) Carbon Dioxide Level 27 mmol/L (21-32) Anion Gap 9 (6-14) Blood Urea Nitrogen 71 mg/dL (8-26) Creatinine 3.1 mg/dL (0.7-1.3) Estimated GFR (Cockcroft-Gault) 19.6 Glucose Level 142 mg/dL (70-99) Calcium Level 8.5 mg/dL (8.5-10.1) Glucose (Fingerstick) 135 mg/dL (70-99) Laboratory Tests Test 10/25/18 12:18 10/25/18 17:01 10/25/18 21:02 10/26/18 04:30 Glucose (Fingerstick) 133 mg/dL (70-99) 133 mg/dL (70-99) 163 mg/dL (70-99) White Blood Count 7.3 x10^3/uL (4.0-11.0) Red Blood Count 3.43 x10^6/uL (4.30-5.70) Hemoglobin 9.8 g/dL (13.0-17.5) Hematocrit 30.1 % (39.0-53.0) Mean Corpuscular Volume 88 fL (79-100) Mean Corpuscular Hemoglobin 29 pg (25-35) Mean Corpuscular Hemoglobin Concent 33 g/dL (31-37) Red Cell Distribution Width 13.7 % (11.5-14.5) Platelet Count 290 x10^3/uL (140-400) Neutrophils (%) (Auto) 68 % (31-73) Lymphocytes (%) (Auto) 18 % (24-48) Monocytes (%) (Auto) 10 % (0-9) Eosinophils (%) (Auto) 3 % (0-3) Basophils (%) (Auto) 1 % (0-3) Neutrophils # (Auto) 5.0 x10^3uL (1.8-7.7) Lymphocytes # (Auto) 1.3 x10^3/uL (1.0-4.8) Monocytes # (Auto) 0.7 x10^3/uL (0.0-1.1) Eosinophils # (Auto) 0.2 x10^3/uL (0.0-0.7) Basophils # (Auto) 0.0 x10^3/uL (0.0-0.2) Sodium Level 139 mmol/L (136-145) Potassium Level 5.0 mmol/L (3.5-5.1) Chloride Level 103 mmol/L (98-107) Carbon Dioxide Level 27 mmol/L (21-32) Anion Gap 9 (6-14) Blood Urea Nitrogen 71 mg/dL (8-26) Creatinine 3.1 mg/dL (0.7-1.3) Estimated GFR (Cockcroft-Gault) 19.6 Glucose Level 142 mg/dL (70-99) Calcium Level 8.5 mg/dL (8.5-10.1) Test 10/26/18 07:12 Glucose (Fingerstick) 135 mg/dL (70-99) Medications Current Medications Albuterol/ Ipratropium (Duoneb) 3 ml 1X ONCE NEB Last administered on 10/19/18 12:00; Start 10/19/18 at 11:45; Stop 10/19/18 at 11:46; Status DC Heparin Sodium (Porcine) (Heparin Sodium) 4,000 unit 1X ONCE IV Last administered on 10/19/18at 12:29; Start 10/19/18 at 12:30; Stop 10/19/18 at 12:31; Status DC Heparin Sodium/ Dextrose 500 ml @ 0 mls/hr CONT PRN IV SEE I/O RECORD Last administered on 10/22/18at 02:37; Start 10/19/18 at 12:30; Stop 10/22/18 at 15:06; Status DC Heparin Sodium (Porcine) (Heparin Sodium) 3,000 unit PRN Q6HRS PRN IV FOR UFH LEVEL LESS THAN 0.2 Last administered on 10/19/18 20:34; Start 10/19/18 at 12:30; Stop 10/22/18 at 15:06; Status DC Info (Anti-Coagulation Monitoring By Pharmacy) 1 each PRN DAILY PRN MC SEE CO MMENTS Last administered on 10/21/18at 09:18; Start 10/19/18 at 12:30; Stop 10/23/18 at 07:33; Status DC Furosemide (Lasix) 60 mg 1X ONCE IVP Last administered on 10/19/18at 13:00; Start 10/19/18 at 13:00; Stop 10/19/18 at 13:01; Status DC Ondansetron HCl (Zofran) 4 mg PRN Q8HRS PRN IV NAUSEA/VOMITING; Start 10/19/18 at 13:30; Stop 10/20/18 at 13:29; Status DC Morphine Sulfate (Morphine Sulfate) 2 mg PRN Q2HR PRN IV PAIN; Start 10/19/18 at 13:30; Stop 10/20/18 at 13:29; Status DC Nitroglycerin (Nitrostat) 0.4 mg PRN Q5MIN PRN SL CHEST PAIN; Start 10/19/18 at 13:30; Stop 10/20/18 at 13:29; Status DC Albuterol/ Ipratropium (Duoneb) 3 ml RTQID NEB ; Start 10/19/18 at 16:00; Stop 10/19/18 at 16:00; Status DC Amlodipine Besylate (Norvasc) 5 mg 1X ONCE PO Last administered on 10/19/18 13:53; Start 10/19/18 at 13:30; Stop 10/19/18 at 13:31; Status DC Nitroglycerin (Nitro-Bid Oint) 0.5 inch Q6HRS TP Last administered on 10/24/18at 12:35; Start 10/19/18 at 14:00; Stop 10/24/18 at 15:27; Status DC Aspirin (Ecotrin) 81 mg DAILYWBKFT PO Last administered on 10/25/18 08:40; Start 10/19/18 at 14:00 Metoprolol Tartrate (Lopressor) 25 mg BID PO Last administered on 10/25/18 21:26; Start 10/19/18 at 14:00 Atorvastatin Calcium (Lipitor) 40 mg QHS PO Last administered on 10/25/18 21: 26; Start 10/19/18 at 21:00 Sodium Chloride (Normal Saline Flush 3ml) 3 ml QSHIFT PRN IV AFTER MEDS AND BLOOD DRAWS; Start 10/19/18 at 15:15 Ondansetron HCl (Zofran) 4 mg PRN Q4HRS PRN IV NAUSEA/VOMITING Last administered on 10/22/18 02:09; Start 10/19/18 at 15:15 Acetaminophen (Tylenol) 650 mg PRN Q4HRS PRN PO TEMP OVER 100.4F OR MILD PAIN Last administered on 10/22/18at 14:10; Start 10/19/18 at 15:15 Al Hydroxide/Mg Hydroxide (Mylanta Plus Xs) 30 ml PRN DAILY PRN PO HEARTBURN / GAS; Start 10/19/18 at 15:15 Clonidine HCl (Catapres) 0.1 mg PRN Q6HRS PRN PO SBP>160 OR DBP>90 Last administered on 10/23/18 10:34; Start 10/19/18 at 15:15; Stop 10/24/18 at 15:27; Status DC Docusate Sodium (Colace) 100 mg PRN BID PRN PO CONSTIPATION Last administered on 10/25/18 14:02; Start 10/19/18 at 15:15 Albuterol/ Ipratropium (Duoneb) 3 ml Q4HRS NEB Last administered on 10/26/18 07:45; Start 10/19/18 at 16:00 Guaifenesin (Robitussin) 200 mg PRN Q4HRS PRN PO COUGH; Start 10/19/18 at 15:15 Enoxaparin Sodium (Lovenox 40mg Syringe) 40 mg DAILY SQ ; Start 10/20/18 at 09:00; Stop 10/20/18 at 09:00; Status DC Sodium Bicarbonate (Sodium Bicarb Adult 8.4% Syr) 50 meq 1X ONCE IV Last administered on 10/19/18at 16:42; Start 10/19/18 at 16:30; Stop 10/19/18 at 16:33; Status DC Insulin Human Lispro (HumaLOG) 0-7 UNITS TIDWMEALS SQ Last administered on 10/25/18at 08:44; Start 10/19/18 at 18:00 Dextrose (Dextrose 50%-Water Syringe) 12.5 gm PRN Q15MIN PRN IV SEE COMMENTS; Start 10/19/18 at 18:00 Furosemide (Lasix) 40 mg Q8HRS IVP Last administered on 10/21/18 06:22; Start 10/20/18 at 14:00; Stop 10/21/18 at 16:45; Status DC Amlodipine Besylate (Norvasc) 5 mg DAILY PO Last administered on 10/25/18at 08:39; Start 10/21/18 at 12:30; Stop 10/25/18 at 09:33; Status DC Tamsulosin HCl (Flomax) 0.4 mg QHS PO Last administered on 10/25/18at 21:26; Start 10/21/18 at 21:00 Ropinirole HCl (Requip) 2 mg 1X ONCE PO Last administered on 10/22/18 00:58; Start 10/22/18 at 01:00; Stop 10/22/18 at 01:01; Status DC Magnesium Sulfate 50 ml @ 25 mls/hr 1X ONCE IV Last administered on 10/22/18at 01:11; Start 10/22/18 at 01:00; Stop 10/22/18 at 02:59; Status DC Clopidogrel Bisulfate (Plavix) 75 mg DAILYWBKFT PO Last administered on 10/23/18 08:56; Start 10/23/18 at 08:00; Stop 10/24/18 at 10:05; Status DC Insulin Glargine (Lantus) 35 units QHS SQ Last administered on 10/25/18 21:30; Start 10/22/18 at 21:00 Sodium Chloride 1,000 ml @ 100 mls/hr Q10H IV Last administered on 10/25/18 06:30; Start 10/24/18 at 10:30; Stop 10/25/18 at 09:55; Status DC Amlodipine Besylate (Norvasc) 5 mg 1X ONCE PO Last administered on 10/24/18 15:50; Start 10/24/18 at 15:30; Stop 10/25/18 at 11:26; Status DC Isosorbide Mononitrate (Imdur) 60 mg DAILY PO Last administered on 10/25/18at 08:40; Start 10/24/18 at 16:00 Hydralazine HCl (Apresoline Inj) 10 mg PRN Q4HRS PRN IVP ELEVATED BP, SEE COMMENTS Last administered on 10/26/18at 03:41; Start 10/24/18 at 15:30 Furosemide (Lasix) 40 mg 1X ONCE IVP Last administered on 10/25/18at 09:37; Start 10/25/18 at 09:00; Stop 10/25/18 at 09:01; Status DC Furosemide (Lasix) 40 mg BID92 PO Last administered on 10/25/18at 14:02; Start 10/25/18 at 14:00 Amlodipine Besylate (Norvasc) 10 mg DAILY PO ; Start 10/26/18 at 09:00; Stop 10/26/18 at 09:00; Status DC Amlodipine Besylate (Norvasc) 5 mg 1X ONCE PO Last administered on 10/25/18at 12:45; Start 10/25/18 at 10:00; Stop 10/25/18 at 10:01; Status DC Amlodipine Besylate (Norvasc) 5 mg DAILY PO ; Start 10/26/18 at 09:00 Zolpidem Tartrate (Ambien) 5 mg PRN QHS PRN PO INSOMNIA Last administered on 10/25/18at 21:25; Start 10/25/18 at 21:00 Regadenoson (Lexiscan) 0.4 mg 1X ONCE IV Last administered on 10/26/18at 09:22; Start 10/26/18 at 08:15; Stop 10/26/18 at 08:16; Status DC Active Scripts Active Reported Metoprolol Tartrate 25 Mg Tablet 12.5 Mg PO QHS Fish Oil 1,000 mg Softgel ([place]-3S/Dha/Epa/Fish Oil) 1 Each Capsule 1 Each PO Veltassa (Patiromer Calcium Sorbitex) 8.4 Gm Powd.pack 8.4 Gm PO DAILY Vitamin D-3 (Cholecalciferol (Vitamin D3)) 2,000 Unit Tablet 5,000 Unit PO DAILY Aspirin 325 Mg Tablet 1 Tab PO DAILY Amlodipine Besylate 5 Mg Tablet 5 Mg PO DAILY Metoprolol Tartrate 25 Mg Tablet 1 Tab PO DAILY Atorvastatin Calcium 40 Mg Tablet 1 Tab PO QHS Basaglar Kwikpen U-100 (Insulin Glargine,Hum.rec.anlog) 100 Unit/1 Ml Insuln.pen 35 Unit SQ DAILY Lisinopril 20 Mg Tablet 40 Mg PO DAILY Vitals/I & O Vital Sign - Last 24 Hours 10/25/18 10/25/18 10/25/18 10/25/18 12:10 12:45 15:00 16:00 Temp 99.1 99.1 Pulse 62 77 73 Resp 16 B/P (MAP) 135/61 172/55 (94) 165/72 (103) Pulse Ox 95 100 O2 Delivery Nasal Cannula Nasal Cannula O2 Flow Rate 2.0 3.0 10/25/18 10/25/18 10/25/18 10/25/18 16:08 16:11 19:58 20:00 Temp 98.2 98.2 Pulse 77 Resp 18 B/P (MAP) 175/65 (101) Pulse Ox 96 94 98 O2 Delivery Nasal Cannula Nasal Cannula Nasal Cannula Nasal Cannula O2 Flow Rate 2.0 2.0 2.0 2.0 10/25/18 10/25/18 10/25/18 10/26/18 20:05 21:26 23:10 02:39 Temp 99.4 99.2 99.4 99.2 Pulse 77 68 74 Resp 16 18 B/P (MAP) 175/65 148/67 (94) 171/76 (107) Pulse Ox 96 97 99 O2 Delivery Nasal Cannula Nasal Cannula Simple Mask O2 Flow Rate 2.0 2.0 5.0 10/26/18 10/26/18 10/26/18 10/26/18 03:41 07:00 07:45 08:00 Temp 98.5 98.5 Pulse 74 87 Resp 22 B/P (MAP) 171/76 166/70 (102) Pulse Ox 98 98 O2 Delivery Simple Mask Simple Mask Mask O2 Flow Rate 5.0 5.0 5.0 10/26/18 10:45 Temp 98.4 98.4 Pulse 88 Resp 22 B/P (MAP) 150/55 (86) Pulse Ox 95 O2 Delivery Nasal Cannula O2 Flow Rate 23.0 Intake and Output 10/25/18 10/25/18 10/26/18 15:00 23:00 07:00 Intake Total 350 ml 50 ml Output Total 2050 ml Balance 350 ml -2000 ml FELA KANG III DO October 26, 2018 11:51
--- NOTE | 2018-10-26 12:23 | PDOC ---
Renal-Progress Notes Subjective Notes Notes NONE History of Present Illness Hx of present illness STABLE Vitals Vitals Vital Signs Date Time Temp Pulse Resp B/P (MAP) Pulse Ox O2 Delivery O2 Flow Rate FiO2 10/26/18 10:45 98.4 88 22 150/55 (86) 95 Nasal Cannula 23.0 98.4 Weight Weight [ ] I.O. Intake and Output Intake and Output 10/26/18 07:00 Intake Total 400 ml Output Total 2050 ml Balance -1650 ml Intake Oral 50 ml IV Total 350 ml Output Urine Total 2050 ml Labs Labs Laboratory Tests Test 10/25/18 17:01 10/25/18 21:02 10/26/18 04:30 10/26/18 07:12 Glucose (Fingerstick) 133 mg/dL (70-99) 163 mg/dL (70-99) 135 mg/dL (70-99) White Blood Count 7.3 x10^3/uL (4.0-11.0) Red Blood Count 3.43 x10^6/uL (4.30-5.70) Hemoglobin 9.8 g/dL (13.0-17.5) Hematocrit 30.1 % (39.0-53.0) Mean Corpuscular Volume 88 fL (79-100) Mean Corpuscular Hemoglobin 29 pg (25-35) Mean Corpuscular Hemoglobin Concent 33 g/dL (31-37) Red Cell Distribution Width 13.7 % (11.5-14.5) Platelet Count 290 x10^3/uL (140-400) Neutrophils (%) (Auto) 68 % (31-73) Lymphocytes (%) (Auto) 18 % (24-48) Monocytes (%) (Auto) 10 % (0-9) Eosinophils (%) (Auto) 3 % (0-3) Basophils (%) (Auto) 1 % (0-3) Neutrophils # (Auto) 5.0 x10^3uL (1.8-7.7) Lymphocytes # (Auto) 1.3 x10^3/uL (1.0-4.8) Monocytes # (Auto) 0.7 x10^3/uL (0.0-1.1) Eosinophils # (Auto) 0.2 x10^3/uL (0.0-0.7) Basophils # (Auto) 0.0 x10^3/uL (0.0-0.2) Sodium Level 139 mmol/L (136-145) Potassium Level 5.0 mmol/L (3.5-5.1) Chloride Level 103 mmol/L (98-107) Carbon Dioxide Level 27 mmol/L (21-32) Anion Gap 9 (6-14) Blood Urea Nitrogen 71 mg/dL (8-26) Creatinine 3.1 mg/dL (0.7-1.3) Estimated GFR (Cockcroft-Gault) 19.6 Glucose Level 142 mg/dL (70-99) Calcium Level 8.5 mg/dL (8.5-10.1) Test 10/26/18 11:44 Glucose (Fingerstick) 168 mg/dL (70-99) Review of Systems Constitutional: yes: weakness, alert, oriented Ears/Nose/Throat: Yes: no symptom reported Pulmonary: Yes dyspnea Cardiovascular: Yes no symptom reported Gastrointestional: Yes: constipation Genitourinary: Yes: no symptom reported Musculoskeletal: Yes: muscle stiffness Skin: Yes no symptom reported Psychiatric/Neurological: Yes: no symptom reported Endocrine: Yes: no symptom reported Physical Exam General Appearance: no apparent distress Skin: warm Respiratory: decreased breath sounds Heart: S1S2, RRR Abdomen: soft, bowel sounds present Genitourinary: bladder flat Neurology: alert, oriented, follow commands Assessment Assessment IMP VIN WITH CR IMPROVED TO 3.1-SOME ATN BUT STABLE CKD STAGE 3 WITH CR OF 1.5-2.0 ACUTE HYPOXIC RESP FAILURE NSTEMI CHF DIASTOLIC-ACUTE CAD HX WITH PTCA HTN HX-BETTER DM II HX MORBID OBESITY RIGHT ADRENAL ADENOMA PLAN AGREE WITH HOLDING WHIT-I CONT LASIX MONITOR PULMONARY STATUS PULM EVAL CARDIOLOGY EVAL WILL FOLLOW OK TO D/C FROM RENAL STANDPOINT-HE CAN F/U AT OFFICE ROD PELAEZ MD October 26, 2018 12:22
[2018-10-26] MEDS: ISOSORBIDE MONONITRATE ER 30 MG TAB.ER.24H PO SCH (12:48)
[2018-10-26] MEDS: amLODIPine BESYLATE 10 MG TABLET PO SCH (12:49)
[2018-10-26] MEDS: METOPROLOL TART IMMED RELEASE 25 MG TABLET. PO SCH ×2 (12:49→21:19)
[2018-10-26] MEDS: ASPIRIN ENTERIC COATED 81 MG TABLET.DR. PO SCH (12:49)
[2018-10-26] MEDS: FUROSEMIDE 40 MG TABLET. PO SCH ×2 (12:49→15:34)
--- NOTE | 2018-10-26 14:16 | NUR ---
SS following up with discharge planning. Discharge orders received for [facility], ; fax [phone]. SS phoned and faxed discharge orders to [facility]. Pt will discharge today and go to [facility] at 1630 via [employer] transportation, . Pt, pt's spouse, and pt's RN notified.
--- NOTE | 2018-10-26 19:17 | NUR ---
Patient did not discharge due to 2 part stress test. Patient has day 2 of stress test tomorrow. Patient has follow-up appointment with Dr. Kothari on December 13 2018 at 0915. Patient was given appointment card.
[2018-10-26] MEDS: TAMSULOSIN 0.4 MG CAP.ER.24H. PO SCH (21:18)
[2018-10-26] MEDS: ATORVASTATIN CALCIUM 40 MG TABLET. PO SCH (21:18)
[2018-10-26] MEDS: INSULIN GLARGINE 300 UNITS/3 ML INSULN.PEN. SQ SCH (21:23)
[2018-10-27] MEDS: ACETAMINOPHEN 325 MG TABLET. PO PRN (00:13)
[2018-10-27] MEDS: ZOLPIDEM 5 MG TABLET. PO PRN ×2 (00:13→20:52)
[2018-10-27 03:00] VITALS: BP 156/66
[2018-10-27 03:53] LABS: BASO # 0.1 x10^3/uL (0.0-0.2); BASO % 1 % (0-3); EOS # 0.2 x10^3/uL (0.0-0.7); EOS % 3 % (0-3); HEMATOCRIT 30.2 % (39.0-53.0); LYMPH # 1.4 x10^3/uL (1.0-4.8); LYMPH % 19 % (24-48); MEAN CORPUSCULAR HEMOGLOBIN 29 pg (25-35); MEAN CORPUSCULAR HGB CONC 33 g/dL (31-37); MEAN CORPUSCULAR VOLUME 88 fL (79-100); MONO # 0.8 x10^3/uL (0.0-1.1); MONO % 11 % (0-9); NEUT # 4.7 x10^3uL (1.8-7.7); NEUT % 66 % (31-73); PLATELET COUNT 277 x10^3/uL (140-400); RED BLOOD COUNT 3.45 x10^6/uL (4.30-5.70); RED CELL DISTRIBUTION WIDTH 13.6 % (11.5-14.5); WHITE BLOOD COUNT 7.1 x10^3/uL (4.0-11.0)
[2018-10-27] MEDS: IPRATRPIUM/ALBUTEROL 0.5/2.5MG 3 ML NEBU. NEB SCH ×7 (04:00→23:08)
[2018-10-27 04:13] LABS: CALCIUM 8.5 mg/dL (8.5-10.1); CREATININE 3.1 mg/dL (0.7-1.3); GFR 19.6; POTASSIUM 4.9 mmol/L (3.5-5.1)
[2018-10-27 07:00] VITALS: BP 160/72
[2018-10-27] MEDS: INSULIN LISPRO 300 UNITS/3 ML INSULN.PEN. SQ SCH ×3 (08:00→17:00)
--- NOTE | 2018-10-27 08:44 | PDOC ---
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 The lesion stenosis prior to intervention was 99% with ALVARO 2 flow History of Present Illness History of Present Illness Patient seen and examined MPI in progress as patient was seen day # 2 Discussed with nurse Patient well appearing Cr maintained resumed diuretics, IVF stopped 29 min pt exam, chart review, > 50% of time spent with exam, chart review, pt care coordination Vitals Vitals Vital Signs Date Time Temp Pulse Resp B/P (MAP) Pulse Ox O2 Delivery O2 Flow Rate FiO2 10/27/18 07:00 97.9 83 18 160/72 (101) 96 Nasal Cannula 2.0 97.9 Physical Exam General: Alert, Oriented X3, Cooperative, No acute distress Heart: Regular rate, No murmurs Lungs: Clear Abdomen: Normal bowel sounds, Soft, No tenderness Extremities: No cyanosis, Normal pulses, Other (mild edema +2/4) Skin: No breakdown, Other (Severe right arm bruising noted) Labs LABS REASON: CHF PROCEDURE: CHEST AP ONLY Portable chest, 10/25/2018: HISTORY: Congestive heart failure Comparison is made to a study from 10/22/2018. The heart is enlarged. The pulmonary vascularity is within normal limits. There is a moderate unchanged left basilar opacity compatible with a combination of pleural fluid and underlying atelectasis/infiltrate. There is persistent blunting of the right lateral costophrenic angle compatible with a small amount of pleural fluid. The upper lung garcia remain clear. No new abnormality is detected. IMPRESSION: No significant change since 10/22/2018. Electronically signed by: Cory Kelsey MD (10/25/2018 1:23 PM) [facility] DICTATED and SIGNED BY: CORY KELSEY MD DATE: 10/25/18 1322 Laboratory Tests Test 10/26/18 11:44 10/26/18 16:29 10/26/18 20:47 10/27/18 03:30 Glucose (Fingerstick) 168 mg/dL (70-99) 130 mg/dL (70-99) 140 mg/dL (70-99) White Blood Count 7.1 x10^3/uL (4.0-11.0) Red Blood Count 3.45 x10^6/uL (4.30-5.70) Hemoglobin 10.0 g/dL (13.0-17.5) Hematocrit 30.2 % (39.0-53.0) Mean Corpuscular Volume 88 fL (79-100) Mean Corpuscular Hemoglobin 29 pg (25-35) Mean Corpuscular Hemoglobin Concent 33 g/dL (31-37) Red Cell Distribution Width 13.6 % (11.5-14.5) Platelet Count 277 x10^3/uL (140-400) Neutrophils (%) (Auto) 66 % (31-73) Lymphocytes (%) (Auto) 19 % (24-48) Monocytes (%) (Auto) 11 % (0-9) Eosinophils (%) (Auto) 3 % (0-3) Basophils (%) (Auto) 1 % (0-3) Neutrophils # (Auto) 4.7 x10^3uL (1.8-7.7) Lymphocytes # (Auto) 1.4 x10^3/uL (1.0-4.8) Monocytes # (Auto) 0.8 x10^3/uL (0.0-1.1) Eosinophils # (Auto) 0.2 x10^3/uL (0.0-0.7) Basophils # (Auto) 0.1 x10^3/uL (0.0-0.2) Sodium Level 137 mmol/L (136-145) Potassium Level 4.9 mmol/L (3.5-5.1) Chloride Level 101 mmol/L (98-107) Carbon Dioxide Level 28 mmol/L (21-32) Anion Gap 8 (6-14) Blood Urea Nitrogen 72 mg/dL (8-26) Creatinine 3.1 mg/dL (0.7-1.3) Estimated GFR (Cockcroft-Gault) 19.6 Glucose Level 126 mg/dL (70-99) Calcium Level 8.5 mg/dL (8.5-10.1) Test 10/27/18 07:56 Glucose (Fingerstick) 111 mg/dL (70-99) Assessment and Plan Assessmemt and Plan Problems Medical Problems: (1) Acute on chronic renal insufficiency Status: Acute (2) CHF (congestive heart failure) Status: Acute (3) Hypoxemia Status: Acute (4) NSTEMI (non-ST elevated myocardial infarction) Status: Acute The ramus intermedius artery is a medium size vessel with intimal irregularities. The right coronary artery is a small size vessel which is non dominant and dim inutive. There is a 99% stenosis in the mid segment. PCI Technique Lesion Anticoagulation was achieved with Heparin and integrilin. . Patient was preloaded with Effient. Percutaneous coronary intervention was performed on the Proximal circumflex (LESION 1) . The lesion stenosis prior to intervention was 99% with ALVARO 2 flow. A EBU 3.5 Guide Catheter was used to engage the LM ostium. A 190 cm BMW Interventional Guidewire was used to cross the lesion. BALLOON DILATION A Balloon catheter 2.5x12mm Trek was inserted and inflated up to 10atm for 20seconds. STENT DEPLOYMENT A drug-eluting, xience xpedition stent 3.5x18mm was inserted and inflated up to 14atm for 20seconds. Repeat angiography revealed the following post-stent deployment results: 0% residual and ALVARO 3 flow. Final angiography reveals 0 % stenosis with ALVARO 3 flow. PCI Technique Lesion 2 Percutaneous Coronary Intervention was performed on the Distal CX and LPDA. A EBU 3.5 Guide Catheter was used to engage the LM ostium. A 190cm BMW Interventional Guidewire was used to cross the lesion. BALLOON DILATION A Balloon catheter 2.5x12mm Trek was inserted and inflated up to 10atm for 20seconds. STENT DEPLOYMENT A 2.5X38MM stent Xience Xpedition was inserted and inflated up to 16atm for 20seconds. Final angiography reveals 0 % stenosis with ALVARO 3 flow. Conclusion 3 vessel CAD Successful PCI of proximal CX with MICHELLE Successful PCI of distal CX and LPDA with MICHELLE Recommendations Daily ASA with Plavix for at least one year Aggressive Medical TherapyCardiac Risk Reduction Program Weight Loss Reduction ProgramMedical Therapy Plan staged PCI of LAD Medical therapy for non-dominant small RCA DICTATED and SIGNED BY: SUE BEDOLLA MD DATE: 06/03/13 0760 Comment Review of Relevant I have reviewed the following items kristin (where applicable) has been applied. Labs Laboratory Tests Test 10/25/18 12:18 10/25/18 17:01 10/25/18 21:02 10/26/18 04:30 Glucose (Fingerstick) 133 mg/dL (70-99) 133 mg/dL (70-99) 163 mg/dL (70-99) White Blood Count 7.3 x10^3/uL (4.0-11.0) Red Blood Count 3.43 x10^6/uL (4.30-5.70) Hemoglobin 9.8 g/dL (13.0-17.5) Hematocrit 30.1 % (39.0-53.0) Mean Corpuscular Volume 88 fL (79-100) Mean Corpuscular Hemoglobin 29 pg (25-35) Mean Corpuscular Hemoglobin Concent 33 g/dL (31-37) Red Cell Distribution Width 13.7 % (11.5-14.5) Platelet Count 290 x10^3/uL (140-400) Neutrophils (%) (Auto) 68 % (31-73) Lymphocytes (%) (Auto) 18 % (24-48) Monocytes (%) (Auto) 10 % (0-9) Eosinophils (%) (Auto) 3 % (0-3) Basophils (%) (Auto) 1 % (0-3) Neutrophils # (Auto) 5.0 x10^3uL (1.8-7.7) Lymphocytes # (Auto) 1.3 x10^3/uL (1.0-4.8) Monocytes # (Auto) 0.7 x10^3/uL (0.0-1.1) Eosinophils # (Auto) 0.2 x10^3/uL (0.0-0.7) Basophils # (Auto) 0.0 x10^3/uL (0.0-0.2) Sodium Level 139 mmol/L (136-145) Potassium Level 5.0 mmol/L (3.5-5.1) Chloride Level 103 mmol/L (98-107) Carbon Dioxide Level 27 mmol/L (21-32) Anion Gap 9 (6-14) Blood Urea Nitrogen 71 mg/dL (8-26) Creatinine 3.1 mg/dL (0.7-1.3) Estimated GFR (Cockcroft-Gault) 19.6 Glucose Level 142 mg/dL (70-99) Calcium Level 8.5 mg/dL (8.5-10.1) Test 10/26/18 07:12 10/26/18 11:44 10/26/18 16:29 10/26/18 20:47 Glucose (Fingerstick) 135 mg/dL (70-99) 168 mg/dL (70-99) 130 mg/dL (70-99) 140 mg/dL (70-99) Test 10/27/18 03:30 10/27/18 07:56 White Blood Count 7.1 x10^3/uL (4.0-11.0) Red Blood Count 3.45 x10^6/uL (4.30-5.70) Hemoglobin 10.0 g/dL (13.0-17.5) Hematocrit 30.2 % (39.0-53.0) Mean Corpuscular Volume 88 fL (79-100) Mean Corpuscular Hemoglobin 29 pg (25-35) Mean Corpuscular Hemoglobin Concent 33 g/dL (31-37) Red Cell Distribution Width 13.6 % (11.5-14.5) Platelet Count 277 x10^3/uL (140-400) Neutrophils (%) (Auto) 66 % (31-73) Lymphocytes (%) (Auto) 19 % (24-48) Monocytes (%) (Auto) 11 % (0-9) Eosinophils (%) (Auto) 3 % (0-3) Basophils (%) (Auto) 1 % (0-3) Neutrophils # (Auto) 4.7 x10^3uL (1.8-7.7) Lymphocytes # (Auto) 1.4 x10^3/uL (1.0-4.8) Monocytes # (Auto) 0.8 x10^3/uL (0.0-1.1) Eosinophils # (Auto) 0.2 x10^3/uL (0.0-0.7) Basophils # (Auto) 0.1 x10^3/uL (0.0-0.2) Sodium Level 137 mmol/L (136-145) Potassium Level 4.9 mmol/L (3.5-5.1) Chloride Level 101 mmol/L (98-107) Carbon Dioxide Level 28 mmol/L (21-32) Anion Gap 8 (6-14) Blood Urea Nitrogen 72 mg/dL (8-26) Creatinine 3.1 mg/dL (0.7-1.3) Estimated GFR (Cockcroft-Gault) 19.6 Glucose Level 126 mg/dL (70-99) Calcium Level 8.5 mg/dL (8.5-10.1) Glucose (Fingerstick) 111 mg/dL (70-99) Laboratory Tests Test 10/26/18 11:44 10/26/18 16:29 10/26/18 20:47 10/27/18 03:30 Glucose (Fingerstick) 168 mg/dL (70-99) 130 mg/dL (70-99) 140 mg/dL (70-99) White Blood Count 7.1 x10^3/uL (4.0-11.0) Red Blood Count 3.45 x10^6/uL (4.30-5.70) Hemoglobin 10.0 g/dL (13.0-17.5) Hematocrit 30.2 % (39.0-53.0) Mean Corpuscular Volume 88 fL (79-100) Mean Corpuscular Hemoglobin 29 pg (25-35) Mean Corpuscular Hemoglobin Concent 33 g/dL (31-37) Red Cell Distribution Width 13.6 % (11.5-14.5) Platelet Count 277 x10^3/uL (140-400) Neutrophils (%) (Auto) 66 % (31-73) Lymphocytes (%) (Auto) 19 % (24-48) Monocytes (%) (Auto) 11 % (0-9) Eosinophils (%) (Auto) 3 % (0-3) Basophils (%) (Auto) 1 % (0-3) Neutrophils # (Auto) 4.7 x10^3uL (1.8-7.7) Lymphocytes # (Auto) 1.4 x10^3/uL (1.0-4.8) Monocytes # (Auto) 0.8 x10^3/uL (0.0-1.1) Eosinophils # (Auto) 0.2 x10^3/uL (0.0-0.7) Basophils # (Auto) 0.1 x10^3/uL (0.0-0.2) Sodium Level 137 mmol/L (136-145) Potassium Level 4.9 mmol/L (3.5-5.1) Chloride Level 101 mmol/L (98-107) Carbon Dioxide Level 28 mmol/L (21-32) Anion Gap 8 (6-14) Blood Urea Nitrogen 72 mg/dL (8-26) Creatinine 3.1 mg/dL (0.7-1.3) Estimated GFR (Cockcroft-Gault) 19.6 Glucose Level 126 mg/dL (70-99) Calcium Level 8.5 mg/dL (8.5-10.1) Test 10/27/18 07:56 Glucose (Fingerstick) 111 mg/dL (70-99) Medications Current Medications Albuterol/ Ipratropium (Duoneb) 3 ml 1X ONCE NEB Last administered on 10/19/18 12:00; Start 10/19/18 at 11:45; Stop 10/19/18 at 11:46; Status DC Heparin Sodium (Porcine) (Heparin Sodium) 4,000 unit 1X ONCE IV Last administered on 10/19/18at 12:29; Start 10/19/18 at 12:30; Stop 10/19/18 at 12:31; Status DC Heparin Sodium/ Dextrose 500 ml @ 0 mls/hr CONT PRN IV SEE I/O RECORD Last administered on 10/22/18at 02:37; Start 10/19/18 at 12:30; Stop 10/22/18 at 15:06; Status DC Heparin Sodium (Porcine) (Heparin Sodium) 3,000 unit PRN Q6HRS PRN IV FOR UFH LEVEL LESS THAN 0.2 Last administered on 10/19/18 20:34; Start 10/19/18 at 12:30; Stop 10/22/18 at 15:06; Status DC Info (Anti-Coagulation Monitoring By Pharmacy) 1 each PRN DAILY PRN MC SEE COMMENTS Last administered on 10/21/18 09:18; Start 10/19/18 at 12:30; Stop 10/23/18 at 07:33; Status DC Furosemide (Lasix) 60 mg 1X ONCE IVP Last administered on 10/19/18at 13:00; Start 10/19/18 at 13:00; Stop 10/19/18 at 13:01; Status DC Ondansetron HCl (Zofran) 4 mg PRN Q8HRS PRN IV NAUSEA/VOMITING; Start 10/19/18 at 13:30; Stop 10/20/18 at 13:29; Status DC Morphine Sulfate (Morphine Sulfate) 2 mg PRN Q2HR PRN IV PAIN; Start 10/19/18 at 13:30; Stop 10/20/18 at 13:29; Status DC Nitroglycerin (Nitrostat) 0.4 mg PRN Q5MIN PRN SL CHEST PAIN; Start 10/19/18 at 13:30; Stop 10/20/18 at 13:29; Status DC Albuterol/ Ipratropium (Duoneb) 3 ml RTQID NEB ; Start 10/19/18 at 16:00; Stop 10/19/18 at 16:00; Status DC Amlodipine Besylate (Norvasc) 5 mg 1X ONCE PO Last administered on 10/19/18at 13:53; Start 10/19/18 at 13:30; Stop 10/19/18 at 13:31; Status DC Nitroglycerin (Nitro-Bid Oint) 0.5 inch Q6HRS TP Last administered on 10/24/18 12:35; Start 10/19/18 at 14:00; Stop 10/24/18 at 15:27; Status DC Aspirin (Ecotrin) 81 mg DAILYWBKFT PO Last administered on 10/26/18 12:49; Start 10/19/18 at 14:00 Metoprolol Tartrate (Lopressor) 25 mg BID PO Last administered on 10/26/18 21:19; Start 10/19/18 at 14:00 Atorvastatin Calcium (Lipitor) 40 mg QHS PO Last administered on 10/26/18 21:18; Start 10/19/18 at 21:00 Sodium Chloride (Normal Saline Flush 3ml) 3 ml QSHIFT PRN IV AFTER MEDS AND BLOOD DRAWS; Start 10/19/18 at 15:15 Ondansetron HCl (Zofran) 4 mg PRN Q4HRS PRN IV NAUSEA/VOMITING Last administered on 10/22/18at 02:09; Start 10/19/18 at 15:15 Acetaminophen (Tylenol) 650 mg PRN Q4HRS PRN PO TEMP OVER 100.4F OR MILD PAIN Last administered on 10/27/18at 00:13; Start 10/19/18 at 15:15 Al Hydroxide/Mg Hydroxide (Mylanta Plus Xs) 30 ml PRN DAILY PRN PO HEARTBURN / GAS; Start 10/19/18 at 15:15 Clonidine HCl (Catapres) 0.1 mg PRN Q6HRS PRN PO SBP>160 OR DBP>90 Last administered on 10/23/18 10:34; Start 10/19/18 at 15:15; Stop 10/24/18 at 15:27; Status DC Docusate Sodium (Colace) 100 mg PRN BID PRN PO CONSTIPATION Last administered on 10/25/18 14:02; Start 10/19/18 at 15:15 Albuterol/ Ipratropium (Duoneb) 3 ml Q4HRS NEB Last administered on 10/26/18 20:39; Start 10/19/18 at 16:00 Guaifenesin (Robitussin) 200 mg PRN Q4HRS PRN PO COUGH; Start 10/19/18 at 15:15 Enoxaparin Sodium (Lovenox 40mg Syringe) 40 mg DAILY SQ ; Start 10/20/18 at 09:00; Stop 10/20/18 at 09:00; Status DC Sodium Bicarbonate (Sodium Bicarb Adult 8.4% Syr) 50 meq 1X ONCE IV Last administered on 10/19/18at 16:42; Start 10/19/18 at 16:30; Stop 10/19/18 at 16:33; Status DC Insulin Human Lispro (HumaLOG) 0-7 UNITS TIDWMEALS SQ Last administered on 10/26/18 12:56; Start 10/19/18 at 18:00 Dextrose (Dextrose 50%-Water Syringe) 12.5 gm PRN Q15MIN PRN IV SEE COMMENTS; Start 10/19/18 at 18:00 Furosemide (Lasix) 40 mg Q8HRS IVP Last administered on 10/21/18 06:22; Start 10/20/18 at 14:00; Stop 10/21/18 at 16:45; Status DC Amlodipine Besylate (Norvasc) 5 mg DAILY PO Last administered on 10/25/18at 08:39; Start 10/21/18 at 12:30; Stop 10/25/18 at 09:33; Status DC Tamsulosin HCl (Flomax) 0.4 mg QHS PO Last administered on 10/26/18 21:18; Start 10/21/18 at 21:00 Ropinirole HCl (Requip) 2 mg 1X ONCE PO Last administered on 10/22/18at 00:58; Start 10/22/18 at 01:00; Stop 10/22/18 at 01:01; Status DC Magnesium Sulfate 50 ml @ 25 mls/hr 1X ONCE IV Last administered on 10/22/18at 01:11; Start 10/22/18 at 01:00; Stop 10/22/18 at 02:59; Status DC Clopidogrel Bisulfate (Plavix) 75 mg DAILYWBKFT PO Last administered on 10/23/18 08:56; Start 10/23/18 at 08:00; Stop 10/24/18 at 10:05; Status DC Insulin Glargine (Lantus) 35 units QHS SQ Last administered on 10/26/18 21:23; Start 10/22/18 at 21:00 Sodium Chloride 1,000 ml @ 100 mls/hr Q10H IV Last administered on 10/25/18 06:30; Start 10/24/18 at 10:30; Stop 10/25/18 at 09:55; Status DC Amlodipine Besylate (Norvasc) 5 mg 1X ONCE PO Last administered on 10/24/18at 15:50; Start 10/24/18 at 15:30; Stop 10/25/18 at 11:26; Status DC Isosorbide Mononitrate (Imdur) 60 mg DAILY PO Last administered on 10/26/18at 12:48; Start 10/24/18 at 16:00 Hydralazine HCl (Apresoline Inj) 10 mg PRN Q4HRS PRN IVP ELEVATED BP, SEE COMM ENTS Last administered on 10/26/18 23:17; Start 10/24/18 at 15:30 Furosemide (Lasix) 40 mg 1X ONCE IVP Last administered on 10/25/18 09:37; Start 10/25/18 at 09:00; Stop 10/25/18 at 09:01; Status DC Furosemide (Lasix) 40 mg BID92 PO Last administered on 10/26/18 15:34; Start 10/25/18 at 14:00 Amlodipine Besylate (Norvasc) 10 mg DAILY PO ; Start 10/26/18 at 09:00; Stop 10/26/18 at 09:00; Status DC Amlodipine Besylate (Norvasc) 5 mg 1X ONCE PO Last administered on 10/25/18at 12:45; Start 10/25/18 at 10:00; Stop 10/25/18 at 10:01; Status DC Amlodipine Besylate (Norvasc) 5 mg DAILY PO Last administered on 10/26/18at 12:49; Start 10/26/18 at 09:00 Zolpidem Tartrate (Ambien) 5 mg PRN QHS PRN PO INSOMNIA Last administered on 10/27/18at 00:13; Start 10/25/18 at 21:00 Regadenoson (Lexiscan) 0.4 mg 1X ONCE IV Last administered on 10/26/18at 09:22; Start 10/26/18 at 08:15; Stop 10/26/18 at 08:16; Status DC Active Scripts Active Reported Metoprolol Tartrate 25 Mg Tablet 12.5 Mg PO QHS Fish Oil 1,000 mg Softgel (Arnett-3S/Dha/Epa/Fish Oil) 1 Each Capsule 1 Each PO Veltassa (Patiromer Calcium Sorbitex) 8.4 Gm Powd.pack 8.4 Gm PO DAILY Vitamin D-3 (Cholecalciferol (Vitamin D3)) 2,000 Unit Tablet 5,000 Unit PO DAILY Aspirin 325 Mg Tablet 1 Tab PO DAILY Amlodipine Besylate 5 Mg Tablet 5 Mg PO DAILY Metoprolol Tartrate 25 Mg Tablet 1 Tab PO DAILY Atorvastatin Calcium 40 Mg Tablet 1 Tab PO QHS Suzanne Parra U-100 (Insulin Glargine,Hum.rec.anlog) 100 Unit/1 Ml Insuln.pen 35 Unit SQ DAILY Lisinopril 20 Mg Tablet 40 Mg PO DAILY Vitals/I & O Vital Sign - Last 24 Hours 10/26/18 10/26/18 10/26/18 10/26/18 10:45 12:48 12:49 12:49 Temp 98.4 98.4 Pulse 88 88 88 88 Resp 22 B/P (MAP) 150/55 (86) 150/55 150/55 150/55 Pulse Ox 95 O2 Delivery Nasal Cannula O2 Flow Rate 2.0 5/10/19 10/26/18 10/26/18 10/26/18 12:57 15:19 15:34 16:37 Temp 98.5 98.5 Pulse 78 98 Resp 22 B/P (MAP) 177/80 (112) 157/68 (97) Pulse Ox 95 O2 Delivery Nasal Cannula Nasal Cannula Nasal Cannula O2 Flow Rate 2.0 2.0 2.0 10/26/18 10/26/18 10/26/18 10/26/18 19:10 20:00 20:40 21:19 Temp 98.0 98.0 Pulse 79 79 Resp 20 B/P (MAP) 165/71 (102) 165/71 Pulse Ox 98 96 O2 Delivery Nasal Cannula Nasal Cannula Nasal Cannula O2 Flow Rate 3.0 2.0 2.0 10/26/18 10/26/18 10/27/18 10/27/18 23:09 23:17 03:00 07:00 Temp 97.6 98.6 97.9 97.6 98.6 97.9 Pulse 94 94 94 83 Resp 18 18 18 B/P (MAP) 172/72 (105) 172/72 156/66 (96) 160/72 (101) Pulse Ox 96 95 96 O2 Delivery Nasal Cannula Nasal Cannula Nasal Cannula O2 Flow Rate 2.0 2.0 2.0 Intake and Output 10/26/18 10/26/18 10/27/18 14:59 22:59 06:59 Intake Total 480 ml 400 ml Output Total 450 ml 225 ml Balance 30 ml 400 ml -225 ml JAQUAN MENDEZ MD October 27, 2018 08:44
[2018-10-27] MEDS: METOPROLOL TART IMMED RELEASE 25 MG TABLET. PO SCH ×2 (08:52→20:52)
[2018-10-27] MEDS: ASPIRIN ENTERIC COATED 81 MG TABLET.DR. PO SCH (08:52)
[2018-10-27] MEDS: ISOSORBIDE MONONITRATE ER 30 MG TAB.ER.24H PO SCH (08:53)
[2018-10-27] MEDS: amLODIPine BESYLATE 10 MG TABLET PO SCH (08:53)
[2018-10-27] MEDS: FUROSEMIDE 40 MG TABLET. PO SCH ×2 (08:54→14:13)
[2018-10-27 11:00] VITALS: BP 149/73
[2018-10-27] MEDS: DICLOFENAC SODIUM 1% TOPICAL GEL 100GM TUBE. TP SCH ×2 (12:37→20:59)
--- NOTE | 2018-10-27 14:16 | PDOC ---
PULMONARY PROGRESS NOTES Subjective PT NOT SOA Vitals Vital Signs Date Time Temp Pulse Resp B/P (MAP) Pulse Ox O2 Delivery O2 Flow Rate FiO2 10/27/18 13:00 99 Nasal Cannula 2.0 10/27/18 11:00 97.3 63 18 149/73 (98) 97.3 ROS: No Nausea, No Abdominal Pain, No Increase Cough General: Alert, No acute distress Lungs: Clear Cardiovascular: S1 Abdomen: Soft Neuro Exam: Alert Extremities: Other (1+edema) Labs Laboratory Tests Test 10/25/18 17:01 10/25/18 21:02 10/26/18 04:30 10/26/18 07:12 Glucose (Fingerstick) 133 mg/dL (70-99) 163 mg/dL (70-99) 135 mg/dL (70-99) White Blood Count 7.3 x10^3/uL (4.0-11.0) Red Blood Count 3.43 x10^6/uL (4.30-5.70) Hemoglobin 9.8 g/dL (13.0-17.5) Hematocrit 30.1 % (39.0-53.0) Mean Corpuscular Volume 88 fL (79-100) Mean Corpuscular Hemoglobin 29 pg (25-35) Mean Corpuscular Hemoglobin Concent 33 g/dL (31-37) Red Cell Distribution Width 13.7 % (11.5-14.5) Platelet Count 290 x10^3/uL (140-400) Neutrophils (%) (Auto) 68 % (31-73) Lymphocytes (%) (Auto) 18 % (24-48) Monocytes (%) (Auto) 10 % (0-9) Eosinophils (%) (Auto) 3 % (0-3) Basophils (%) (Auto) 1 % (0-3) Neutrophils # (Auto) 5.0 x10^3uL (1.8-7.7) Lymphocytes # (Auto) 1.3 x10^3/uL (1.0-4.8) Monocytes # (Auto) 0.7 x10^3/uL (0.0-1.1) Eosinophils # (Auto) 0.2 x10^3/uL (0.0-0.7) Basophils # (Auto) 0.0 x10^3/uL (0.0-0.2) Sodium Level 139 mmol/L (136-145) Potassium Level 5.0 mmol/L (3.5-5.1) Chloride Level 103 mmol/L (98-107) Carbon Dioxide Level 27 mmol/L (21-32) Anion Gap 9 (6-14) Blood Urea Nitrogen 71 mg/dL (8-26) Creatinine 3.1 mg/dL (0.7-1.3) Estimated GFR (Cockcroft-Gault) 19.6 Glucose Level 142 mg/dL (70-99) Calcium Level 8.5 mg/dL (8.5-10.1) Test 10/26/18 11:44 10/26/18 16:29 10/26/18 20:47 10/27/18 03:30 Glucose (Fingerstick) 168 mg/dL (70-99) 130 mg/dL (70-99) 140 mg/dL (70-99) White Blood Count 7.1 x10^3/uL (4.0-11.0) Red Blood Count 3.45 x10^6/uL (4.30-5.70) Hemoglobin 10.0 g/dL (13.0-17.5) Hematocrit 30.2 % (39.0-53.0) Mean Corpuscular Volume 88 fL (79-100) Mean Corpuscular Hemoglobin 29 pg (25-35) Mean Corpuscular Hemoglobin Concent 33 g/dL (31-37) Red Cell Distribution Width 13.6 % (11.5-14.5) Platelet Count 277 x10^3/uL (140-400) Neutrophils (%) (Auto) 66 % (31-73) Lymphocytes (%) (Auto) 19 % (24-48) Monocytes (%) (Auto) 11 % (0-9) Eosinophils (%) (Auto) 3 % (0-3) Basophils (%) (Auto) 1 % (0-3) Neutrophils # (Auto) 4.7 x10^3uL (1.8-7.7) Lymphocytes # (Auto) 1.4 x10^3/uL (1.0-4.8) Monocytes # (Auto) 0.8 x10^3/uL (0.0-1.1) Eosinophils # (Auto) 0.2 x10^3/uL (0.0-0.7) Basophils # (Auto) 0.1 x10^3/uL (0.0-0.2) Sodium Level 137 mmol/L (136-145) Potassium Level 4.9 mmol/L (3.5-5.1) Chloride Level 101 mmol/L (98-107) Carbon Dioxide Level 28 mmol/L (21-32) Anion Gap 8 (6-14) Blood Urea Nitrogen 72 mg/dL (8-26) Creatinine 3.1 mg/dL (0.7-1.3) Estimated GFR (Cockcroft-Gault) 19.6 Glucose Level 126 mg/dL (70-99) Calcium Level 8.5 mg/dL (8.5-10.1) Test 10/27/18 07:56 10/27/18 11:25 Glucose (Fingerstick) 111 mg/dL (70-99) 140 mg/dL (70-99) Laboratory Tests Test 10/26/18 16:29 10/26/18 20:47 10/27/18 03:30 10/27/18 07:56 Glucose (Fingerstick) 130 mg/dL (70-99) 140 mg/dL (70-99) 111 mg/dL (70-99) White Blood Count 7.1 x10^3/uL (4.0-11.0) Red Blood Count 3.45 x10^6/uL (4.30-5.70) Hemoglobin 10.0 g/dL (13.0-17.5) Hematocrit 30.2 % (39.0-53.0) Mean Corpuscular Volume 88 fL (79-100) Mean Corpuscular Hemoglobin 29 pg (25-35) Mean Corpuscular Hemoglobin Concent 33 g/dL (31-37) Red Cell Distribution Width 13.6 % (11.5-14.5) Platelet Count 277 x10^3/uL (140-400) Neutrophils (%) (Auto) 66 % (31-73) Lymphocytes (%) (Auto) 19 % (24-48) Monocytes (%) (Auto) 11 % (0-9) Eosinophils (%) (Auto) 3 % (0-3) Basophils (%) (Auto) 1 % (0-3) Neutrophils # (Auto) 4.7 x10^3uL (1.8-7.7) Lymphocytes # (Auto) 1.4 x10^3/uL (1.0-4.8) Monocytes # (Auto) 0.8 x10^3/uL (0.0-1.1) Eosinophils # (Auto) 0.2 x10^3/uL (0.0-0.7) Basophils # (Auto) 0.1 x10^3/uL (0.0-0.2) Sodium Level 137 mmol/L (136-145) Potassium Level 4.9 mmol/L (3.5-5.1) Chloride Level 101 mmol/L (98-107) Carbon Dioxide Level 28 mmol/L (21-32) Anion Gap 8 (6-14) Blood Urea Nitrogen 72 mg/dL (8-26) Creatinine 3.1 mg/dL (0.7-1.3) Estimated GFR (Cockcroft-Gault) 19.6 Glucose Level 126 mg/dL (70-99) Calcium Level 8.5 mg/dL (8.5-10.1) Test 10/27/18 11:25 Glucose (Fingerstick) 140 mg/dL (70-99) Medications Active Scripts Medications Dose Route/Sig Max Daily Dose Days Date Category Metoprolol Tartrate 25 Mg Tablet 12.5 Mg PO QHS 10/19/18 Reported Fish Oil 1,000 mg Softgel (Hull-3S/Dha/Epa/Fish Oil) 1 Each Capsule 1 Each PO 10/19/18 Reported [place] (Patiromer Calcium Sorbitex) 8.4 Gm Powd.pack 8.4 Gm PO DAILY 10/19/18 Reported Vitamin D-3 (Cholecalciferol (Vitamin D3)) 2,000 Unit Tablet 5,000 Unit PO DAILY 10/19/18 Reported Aspirin 325 Mg Tablet 1 Tab PO DAILY 10/19/18 Reported Amlodipine Besylate 5 Mg Tablet 5 Mg PO DAILY 10/19/18 Reported Metoprolol Tartrate 25 Mg Tablet 1 Tab PO DAILY 10/19/18 Reported Atorvastatin Calcium 40 Mg Tablet 1 Tab PO QHS 10/19/18 Reported Suzanne Parra U-100 (Insulin Glargine,Hum.rec.anlog) 100 Unit/1 Ml Insuln.pen 35 Unit SQ DAILY 10/19/18 Reported Lisinopril 20 Mg Tablet 40 Mg PO DAILY 06/03/13 Reported Comments cxr 5/6 IMPROVED RIGHT EFFUSION/ SMALL- MODERATE LEFT EFFUSION Impression . 1. Acute hypoxic respiratory failure secondary to suspected [id number] diastolic heart failure and bilateral pleural effusions. Clinically, less likely thromboembolic disease. His venous Dopplers of the lower extremities were negative for DVT. Could not lay flat for V/Q/. No need for further work up 2. History of coronary artery disease, 3-vessel disease with percutaneous coronary intervention of circumflex in the past and now with a non-ST myocardial infarction. 3. Suspected obstructive sleep apnea. 4. Chronic kidney disease, which makes it difficult to diurese. CT CHEST IMPRESSION: 1. Small to moderate bilateral pleural effusions. 2. Bilateral infiltrates/atelectasis. 3. Right adrenal mass. 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 Plan . OK TO TRANSFER SLEEP STUDY OUT PT D/W CXR NO CHANGE NO NEED FOR THORACENTESIS NHI SIMMONS MD October 27, 2018 14:16
[2018-10-27 15:00] VITALS: BP 177/75
[2018-10-27] MEDS: hydrALAZINE 20 MG/ML VIAL. IVP PRN (16:03)
[2018-10-27 19:40] VITALS: BP 158/68
[2018-10-27] MEDS: TAMSULOSIN 0.4 MG CAP.ER.24H. PO SCH (20:52)
[2018-10-27] MEDS: ATORVASTATIN CALCIUM 40 MG TABLET. PO SCH (20:52)
[2018-10-27] MEDS: INSULIN GLARGINE 300 UNITS/3 ML INSULN.PEN. SQ SCH (20:58)
[2018-10-27 22:45] VITALS: BP 168/73
[2018-10-28 02:57] VITALS: BP 160/68
[2018-10-28] MEDS: IPRATRPIUM/ALBUTEROL 0.5/2.5MG 3 ML NEBU. NEB SCH ×4 (04:00→16:53)
[2018-10-28 04:16] LABS: BASO # 0.1 x10^3/uL (0.0-0.2); BASO % 1 % (0-3); EOS # 0.3 x10^3/uL (0.0-0.7); EOS % 4 % (0-3); HEMATOCRIT 30.6 % (39.0-53.0); HEMOGLOBIN 9.9 g/dL (13.0-17.5); LYMPH # 1.5 x10^3/uL (1.0-4.8); LYMPH % 22 % (24-48); MEAN CORPUSCULAR HEMOGLOBIN 29 pg (25-35); MEAN CORPUSCULAR HGB CONC 33 g/dL (31-37); MEAN CORPUSCULAR VOLUME 88 fL (79-100); MONO # 0.9 x10^3/uL (0.0-1.1); MONO % 13 % (0-9); NEUT # 4.2 x10^3uL (1.8-7.7); NEUT % 60 % (31-73); PLATELET COUNT 288 x10^3/uL (140-400); RED BLOOD COUNT 3.48 x10^6/uL (4.30-5.70); RED CELL DISTRIBUTION WIDTH 13.8 % (11.5-14.5)
[2018-10-28 04:36] LABS: CALCIUM 9.1 mg/dL (8.5-10.1); GFR 20.3; POTASSIUM 5.4 mmol/L (3.5-5.1)
[2018-10-28 07:00] VITALS: BP 136/56
[2018-10-28] MEDS: INSULIN LISPRO 300 UNITS/3 ML INSULN.PEN. SQ SCH ×3 (08:00→17:00)
[2018-10-28] MEDS: ASPIRIN ENTERIC COATED 81 MG TABLET.DR. PO SCH (08:38)
[2018-10-28] MEDS: amLODIPine BESYLATE 10 MG TABLET PO SCH (08:39)
[2018-10-28] MEDS: FUROSEMIDE 40 MG TABLET. PO SCH ×2 (08:40→13:58)
[2018-10-28] MEDS: METOPROLOL TART IMMED RELEASE 25 MG TABLET. PO SCH (08:40)
[2018-10-28] MEDS: ISOSORBIDE MONONITRATE ER 30 MG TAB.ER.24H PO SCH (08:41)
[2018-10-28] MEDS: DICLOFENAC SODIUM 1% TOPICAL GEL 100GM TUBE. TP SCH (08:41)
--- NOTE | 2018-10-28 10:22 | RAD ---
MR#: [id number] Date of Study: 10/26/2018 Ordering Physician: JOSE PEREZ, Referring Physician: CHRISTEL JORDAN Tech: Mone Huitron RT (R) (N) APPROVED REPORT Test Type: Pharmacological Stress Nurse/Tech: Wilmer Ch RN Test Indications: CAD, CHF, elevated troponin Cardiac History: COPD, PTCA, High cholesterol, Smoker, DM Medications: See Electronic Medical Record Medical History: See Electronic Medical Record Resting ECG: SR Resting Heart Rate: 88 bpm Resting Blood Pressure: 137/59mmHg Pretest Chest Pain: None Nurse/Tech Notes Lungs diminished, S1S2 Consent: The procedure was explained to the patient in lay terms. Informed consent was witnessed. Nickolas eout was entered into [facility] [employer]. History and Stress Test performed by Wilmer Ch RN Pharm. Details Pharmacologic stress testing was performed using 0.4mg per 5ml of regadenoson given intravenously ove r 7-10 seconds. Stress Symptoms Dyspnea POST EXERCISE Reason for Termination: Infusion complete Max HR: 119 bpm Max Blood Pressure: 131/51mmHg Blood Pressure response to exercise: Normal blood pressure response during stress. Heart Rate response to exercise: normal response Chest Pain: No. Arrhythmia: No. ST Change: Yes. slight ST depression noted in lead II,III,AVF,V4 INTERPRETATION Stress EKG Conclusion: No evidence of stress induced EKG changes Imaging Protocol IMAGE PROTOCOL: Stress Tc-99m/rest Tc-99m 2 days Rest: Stress: Viability: Radiopharm.Tc99m Sestamibi [id number] Duration 10min. Img Date 10/26/2018 Inj-Img [id number]. Stress Admin Site: IV - Left WristAdministrator: PAULINA Cline, ARRT (R)(N) STRESS DATA End Diast. Vol.141.0mlAv. Heart Rate85.0bpm End Syst. Vol.50.0mlCO Index BSA0.0L/min Myocardial Dwao263.0gEject. Cwmsjscq83.0% Stress Rates Pk. Fill Rate2.84EDV/secLVtime Pk. Fill 178.12msec Pk. Empty Rate4.10ESV/secLVtime Pk. Prlzy941.97msec 1/3 Pk. Fill0.85EDV/sec Stress Scores Regional WT2.00Summed WT14.00 Regional WM0.00Summed WM3.00 LV Perfusion There is a moderate sized, severe in intensity, mid to distal septal, anterior and anterolateral defe ct suggestive of ischemia in the LAD territory. Wall Motion Mild LV dysfunction. EF 50% LV Perf. Quant 17 Seg. SSS15.00 Stress Defect Extent (% LAD)37.50Rest Defect Extent (% LAD)Rev. Defect Extent (% LAD)0.00 Stress Defect Extent (% LCX) 50.00Rest Defect Extent (% LCX)Rev. Defect Extent (% LCX)0.00 Stress Defect Extent (% RCA)0.00Rest Defect Extent (% RCA)Rev. Defect Extent (% RCA)0.00 Stress Defect Extent (% MICHAEL)29.60Rest Defect Extent (% MICHAEL)Rev. Defect Extent (% MICHAEL)0.00 Other Information Quality:Average Risk Assessment: Moderate-High Risk Conclusion 1. No evidence of stress induced EKG changes. 2. Abnormal perfusion study with LAD territory ischemia. 3. Mild LV dysfunction. EF 50% 4. Moderate to high risk study Recommendations Cardiac catheterization Signed by : Abdias Estrada, Electronically Approved : 10/28/2018 10:22:08
[2018-10-28 11:00] VITALS: BP 138/58
--- NOTE | 2018-10-28 11:36 | PDOC ---
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 The lesion stenosis prior to intervention was 99% with ALVARO 2 flow Cardiac catheterization MONDAY History of Present Illness History of Present Illness Patient seen and examined MPI in progress as patient was seen day # 2 Discussed with nurse Patient well appearing Cr maintained resumed diuretics, IVF stopped 49 min pt exam, chart review, > 50% of time spent with exam, chart review, pt care coordination Vitals Vitals Vital Signs Date Time Temp Pulse Resp B/P (MAP) Pulse Ox O2 Delivery O2 Flow Rate FiO2 10/28/18 11:00 98.1 61 18 138/58 (84) 96 Nasal Cannula 1.5 98.1 Physical Exam General: Alert, Oriented X3, Cooperative, No acute distress Heart: Regular rate, No murmurs Lungs: Clear Abdomen: Normal bowel sounds, Soft, No tenderness Extremities: No cyanosis, Normal pulses, Other (mild edema +2/4) Skin: No breakdown, Other (Severe right arm bruising noted) Labs LABS Rest: Stress: Viability: Radiopharm. Tc99m Sestamibi Dose 32mCi Duration 10min. Img Date 10/26/2018 Inj-Img Time 90min. Stress Admin Site: IV - Left Wrist Stove Cleaner: PAULINA Cline, ARRT (R)(N) STRESS DATA End Diast. Vol. 141.0ml Av. Heart Rate 85.0bpm End Syst. Vol. 50.0ml CO Index BSA 0.0L/min Myocardial Mass 180.0g Eject. Fraction 65.0% Stress Rates Pk. Fill Rate 2.84EDV/sec LVtime Pk. Fill 178.12msec Pk. Empty Rate 4.10ESV/sec LVtime Pk. Eject 168.97msec /3 Pk. Fill 0.85EDV/sec Stress Scores Regional WT 2.00 Summed WT 14.00 Regional WM 0.00 Summed WM 3.00 LV Perfusion There is a moderate sized, severe in intensity, mid to distal septal, anterior and anterolateral defect suggestive of ischemia in the LAD territory. Wall Motion Mild LV dysfunction. EF 50% LV Perf. Quant 17 Seg. SSS 15.00 Stress Defect Extent (% LAD) 37.50 Rest Defect Extent (% LAD) Rev. Defect Extent (% LAD) 0.00 Stress Defect Extent (% LCX) 50.00 Rest Defect Extent (% LCX) Rev. Defect Extent (% LCX) 0.00 Stress Defect Extent (% RCA) 0.00 Rest Defect Extent (% RCA) Rev. Defect Extent (% RCA) 0.00 Stress Defect Extent (% MICHALE) 29.60 Rest Defect Extent (% MICHAEL) Rev. Defect Extent (% MICHAEL) 0.00 Other Information Quality:Average Risk Assessment: Moderate-High Risk Conclusion 1. No evidence of stress induced EKG changes. 2. Abnormal perfusion study with LAD territory ischemia. 3. Mild LV dysfunction. EF 50% 4. Moderate to high risk study Recommendations Cardiac catheterization Signed by : Abdias Estrada, Electronically Approved : 10/28/2018 10:22:08 Laboratory Tests Test 10/27/18 17:21 10/27/18 20:37 10/28/18 03:30 10/28/18 07:26 Glucose (Fingerstick) 128 mg/dL (70-99) 176 mg/dL (70-99) 113 mg/dL (70-99) White Blood Count 7.0 x10^3/uL (4.0-11.0) Red Blood Count 3.48 x10^6/uL (4.30-5.70) Hemoglobin 9.9 g/dL (13.0-17.5) Hematocrit 30.6 % (39.0-53.0) Mean Corpuscular Volume 88 fL (79-100) Mean Corpuscular Hemoglobin 29 pg (25-35) Mean Corpuscular Hemoglobin Concent 33 g/dL (31-37) Red Cell Distribution Width 13.8 % (11.5-14.5) Platelet Count 288 x10^3/uL (140-400) Neutrophils (%) (Auto) 60 % (31-73) Lymphocytes (%) (Auto) 22 % (24-48) Monocytes (%) (Auto) 13 % (0-9) Eosinophils (%) (Auto) 4 % (0-3) Basophils (%) (Auto) 1 % (0-3) Neutrophils # (Auto) 4.2 x10^3uL (1.8-7.7) Lymphocytes # (Auto) 1.5 x10^3/uL (1.0-4.8) Monocytes # (Auto) 0.9 x10^3/uL (0.0-1.1) Eosinophils # (Auto) 0.3 x10^3/uL (0.0-0.7) Basophils # (Auto) 0.1 x10^3/uL (0.0-0.2) Sodium Level 137 mmol/L (136-145) Potassium Level 5.4 mmol/L (3.5-5.1) Chloride Level 101 mmol/L (98-107) Carbon Dioxide Level 28 mmol/L (21-32) Anion Gap 8 (6-14) Blood Urea Nitrogen 71 mg/dL (8-26) Creatinine 3.0 mg/dL (0.7-1.3) Estimated GFR (Cockcroft-Gault) 20.3 Glucose Level 117 mg/dL (70-99) Calcium Level 9.1 mg/dL (8.5-10.1) Assessment and Plan Assessmemt and Plan Problems Medical Problems: (1) Acute on chronic renal insufficiency Status: Acute (2) CHF (congestive heart failure) Status: Acute (3) Hypoxemia Status: Acute (4) NSTEMI (non-ST elevated myocardial infarction) Status: Acute Comment Review of Relevant I have reviewed the following items kristin (where applicable) has been applied. Labs Laboratory Tests Test 10/26/18 11:44 10/26/18 16:29 10/26/18 20:47 10/27/18 03:30 Glucose (Fingerstick) 168 mg/dL (70-99) 130 mg/dL (70-99) 140 mg/dL (70-99) White Blood Count 7.1 x10^3/uL (4.0-11.0) Red Blood Count 3.45 x10^6/uL (4.30-5.70) Hemoglobin 10.0 g/dL (13.0-17.5) Hematocrit 30.2 % (39.0-53.0) Mean Corpuscular Volume 88 fL (79-100) Mean Corpuscular Hemoglobin 29 pg (25-35) Mean Corpuscular Hemoglobin Concent 33 g/dL (31-37) Red Cell Distribution Width 13.6 % (11.5-14.5) Platelet Count 277 x10^3/uL (140-400) Neutrophils (%) (Auto) 66 % (31-73) Lymphocytes (%) (Auto) 19 % (24-48) Monocytes (%) (Auto) 11 % (0-9) Eosinophils (%) (Auto) 3 % (0-3) Basophils (%) (Auto) 1 % (0-3) Neutrophils # (Auto) 4.7 x10^3uL (1.8-7.7) Lymphocytes # (Auto) 1.4 x10^3/uL (1.0-4.8) Monocytes # (Auto) 0.8 x10^3/uL (0.0-1.1) Eosinophils # (Auto) 0.2 x10^3/uL (0.0-0.7) Basophils # (Auto) 0.1 x10^3/uL (0.0-0.2) Sodium Level 137 mmol/L (136-145) Potassium Level 4.9 mmol/L (3.5-5.1) Chloride Level 101 mmol/L (98-107) Carbon Dioxide Level 28 mmol/L (21-32) Anion Gap 8 (6-14) Blood Urea Nitrogen 72 mg/dL (8-26) Creatinine 3.1 mg/dL (0.7-1.3) Estimated GFR (Cockcroft-Gault) 19.6 Glucose Level 126 mg/dL (70-99) Calcium Level 8.5 mg/dL (8.5-10.1) Test 10/27/18 07:56 10/27/18 11:25 10/27/18 17:21 10/27/18 20:37 Glucose (Fingerstick) 111 mg/dL (70-99) 140 mg/dL (70-99) 128 mg/dL (70-99) 176 mg/dL (70-99) Test 10/28/18 03:30 10/28/18 07:26 White Blood Count 7.0 x10^3/uL (4.0-11.0) Red Blood Count 3.48 x10^6/uL (4.30-5.70) Hemoglobin 9.9 g/dL (13.0-17.5) Hematocrit 30.6 % (39.0-53.0) Mean Corpuscular Volume 88 fL (79-100) Mean Corpuscular Hemoglobin 29 pg (25-35) Mean Corpuscular Hemoglobin Concent 33 g/dL (31-37) Red Cell Distribution Width 13.8 % (11.5-14.5) Platelet Count 288 x10^3/uL (140-400) Neutrophils (%) (Auto) 60 % (31-73) Lymphocytes (%) (Auto) 22 % (24-48) Monocytes (%) (Auto) 13 % (0-9) Eosinophils (%) (Auto) 4 % (0-3) Basophils (%) (Auto) 1 % (0-3) Neutrophils # (Auto) 4.2 x10^3uL (1.8-7.7) Lymphocytes # (Auto) 1.5 x10^3/uL (1.0-4.8) Monocytes # (Auto) 0.9 x10^3/uL (0.0-1.1) Eosinophils # (Auto) 0.3 x10^3/uL (0.0-0.7) Basophils # (Auto) 0.1 x10^3/uL (0.0-0.2) Sodium Level 137 mmol/L (136-145) Potassium Level 5.4 mmol/L (3.5-5.1) Chloride Level 101 mmol/L (98-107) Carbon Dioxide Level 28 mmol/L (21-32) Anion Gap 8 (6-14) Blood Urea Nitrogen 71 mg/dL (8-26) Creatinine 3.0 mg/dL (0.7-1.3) Estimated GFR (Cockcroft-Gault) 20.3 Glucose Level 117 mg/dL (70-99) Calcium Level 9.1 mg/dL (8.5-10.1) Glucose (Fingerstick) 113 mg/dL (70-99) Laboratory Tests Test 10/27/18 17:21 10/27/18 20:37 10/28/18 03:30 10/28/18 07:26 Glucose (Fingerstick) 128 mg/dL (70-99) 176 mg/dL (70-99) 113 mg/dL (70-99) White Blood Count 7.0 x10^3/uL (4.0-11.0) Red Blood Count 3.48 x10^6/uL (4.30-5.70) Hemoglobin 9.9 g/dL (13.0-17.5) Hematocrit 30.6 % (39.0-53.0) Mean Corpuscular Volume 88 fL (79-100) Mean Corpuscular Hemoglobin 29 pg (25-35) Mean Corpuscular Hemoglobin Concent 33 g/dL (31-37) Red Cell Distribution Width 13.8 % (11.5-14.5) Platelet Count 288 x10^3/uL (140-400) Neutrophils (%) (Auto) 60 % (31-73) Lymphocytes (%) (Auto) 22 % (24-48) Monocytes (%) (Auto) 13 % (0-9) Eosinophils (%) (Auto) 4 % (0-3) Basophils (%) (Auto) 1 % (0-3) Neutrophils # (Auto) 4.2 x10^3uL (1.8-7.7) Lymphocytes # (Auto) 1.5 x10^3/uL (1.0-4.8) Monocytes # (Auto) 0.9 x10^3/uL (0.0-1.1) Eosinophils # (Auto) 0.3 x10^3/uL (0.0-0.7) Basophils # (Auto) 0.1 x10^3/uL (0.0-0.2) Sodium Level 137 mmol/L (136-145) Potassium Level 5.4 mmol/L (3.5-5.1) Chloride Level 101 mmol/L (98-107) Carbon Dioxide Level 28 mmol/L (21-32) Anion Gap 8 (6-14) Blood Urea Nitrogen 71 mg/dL (8-26) Creatinine 3.0 mg/dL (0.7-1.3) Estimated GFR (Cockcroft-Gault) 20.3 Glucose Level 117 mg/dL (70-99) Calcium Level 9.1 mg/dL (8.5-10.1) Medications Current Medications Albuterol/ Ipratropium (Duoneb) 3 ml 1X ONCE NEB Last administered on 10/19/18at 12:00; Start 10/19/18 at 11:45; Stop 10/19/18 at 11:46; Status DC Heparin Sodium (Porcine) (Heparin Sodium) 4,000 unit 1X ONCE IV Last administered on 10/19/18at 12:29; Start 10/19/18 at 12:30; Stop 10/19/18 at 12:31; Status DC Heparin Sodium/ Dextrose 500 ml @ 0 mls/hr CONT PRN IV SEE I/O RECORD Last administered on 10/22/18at 02:37; Start 10/19/18 at 12:30; Stop 10/22/18 at 15:06; Status DC Heparin Sodium (Porcine) (Heparin Sodium) 3,000 unit PRN Q6HRS PRN IV FOR UFH LEVEL LESS THAN 0.2 Last administered on 10/19/18at 20:34; Start 10/19/18 at 12:30; Stop 10/22/18 at 15:06; Status DC Info (Anti-Coagulation Monitoring By Pharmacy) 1 each PRN DAILY PRN MC SEE COMMENTS Last administered on 10/21/18at 09:18; Start 10/19/18 at 12:30; Stop 10/23/18 at 07:33; Status DC Furosemide (Lasix) 60 mg 1X ONCE IVP Last administered on 10/19/18at 13:00; Start 10/19/18 at 13:00; Stop 10/19/18 at 13:01; Status DC Ondansetron HCl (Zofran) 4 mg PRN Q8HRS PRN IV NAUSEA/VOMITING; Start 10/19/18 at 13:30; Stop 10/20/18 at 13:29; Status DC Morphine Sulfate (Morphine Sulfate) 2 mg PRN Q2HR PRN IV PAIN; Start 10/19/18 at 13:30; Stop 10/20/18 at 13:29; Status DC Nitroglycerin (Nitrostat) 0.4 mg PRN Q5MIN PRN SL CHEST PAIN; Start 10/19/18 at 13:30; Stop 10/20/18 at 13:29; Status DC Albuterol/ Ipratropium (Duoneb) 3 ml RTQID NEB ; Start 10/19/18 at 16:00; Stop 10/19/18 at 16:00; Status DC Amlodipine Besylate (Norvasc) 5 mg 1X ONCE PO Last administered on 10/19/18 13:53; Start 10/19/18 at 13:30; Stop 10/19/18 at 13:31; Status DC Nitroglycerin (Nitro-Bid Oint) 0.5 inch Q6HRS TP Last administered on 10/24/18 12:35; Start 10/19/18 at 14:00; Stop 10/24/18 at 15:27; Status DC Aspirin (Ecotrin) 81 mg DAILYWBKFT PO Last administered on 10/28/18 08:38; Start 10/19/18 at 14:00 Metoprolol Tartrate (Lopressor) 25 mg BID PO Last administered on 10/28/18 08:40; Start 10/19/18 at 14:00 Atorvastatin Calcium (Lipitor) 40 mg QHS PO Last administered on 10/27/18 20:52; Start 10/19/18 at 21:00 Sodium Chloride (Normal Saline Flush 3ml) 3 ml QSHIFT PRN IV AFTER MEDS AND BLOOD DRAWS; Start 10/19/18 at 15:15 Ondansetron HCl (Zofran) 4 mg PRN Q4HRS PRN IV NAUSEA/VOMITING Last administered on 10/22/18 02:09; Start 10/19/18 at 15:15 Acetaminophen (Tylenol) 650 mg PRN Q4HRS PRN PO TEMP OVER 100.4F OR MILD PAIN Last administered on 10/27/18 00:13; Start 10/19/18 at 15:15 Al Hydroxide/Mg Hydroxide (Mylanta Plus Xs) 30 ml PRN DAILY PRN PO HEARTBURN / GAS; Start 10/19/18 at 15:15 Clonidine HCl (Catapres) 0.1 mg PRN Q6HRS PRN PO SBP>160 OR DBP>90 Last administered on 10/23/18 10:34; Start 10/19/18 at 15:15; Stop 10/24/18 at 15:27; Status DC Docusate Sodium (Colace) 100 mg PRN BID PRN PO CONSTIPATION Last administered on 10/25/18 14:02; Start 10/19/18 at 15:15 Albuterol/ Ipratropium (Duoneb) 3 ml Q4HRS NEB Last administered on 10/28/18 08:45; Start 10/19/18 at 16:00 Guaifenesin (Robitussin) 200 mg PRN Q4HRS PRN PO COUGH; Start 10/19/18 at 15:15 Enoxaparin Sodium (Lovenox 40mg Syringe) 40 mg DAILY SQ ; Start 10/20/18 at 09:00; Stop 10/20/18 at 09:00; Status DC Sodium Bicarbonate (Sodium Bicarb Adult 8.4% Syr) 50 meq 1X ONCE IV Last administered on 10/19/18at 16:42; Start 10/19/18 at 16:30; Stop 10/19/18 at 16:33; Status DC Insulin Human Lispro (HumaLOG) 0-7 UNITS TIDWMEALS SQ Last administered on 10/26/18at 12:56; Start 10/19/18 at 18:00 Dextrose (Dextrose 50%-Water Syringe) 12.5 gm PRN Q15MIN PRN IV SEE COMMENTS; Start 10/19/18 at 18:00 Furosemide (Lasix) 40 mg Q8HRS IVP Last administered on 10/21/18at 06:22; Start 10/20/18 at 14:00; Stop 10/21/18 at 16:45; Status DC Amlodipine Besylate (Norvasc) 5 mg DAILY PO Last administered on 10/25/18at 08:39; Start 10/21/18 at 12:30; Stop 10/25/18 at 09:33; Status DC Tamsulosin HCl (Flomax) 0.4 mg QHS PO Last administered on 10/27/18at 20:52; Start 10/21/18 at 21:00 Ropinirole HCl (Requip) 2 mg 1X ONCE PO Last administered on 10/22/18at 00:58; Start 10/22/18 at 01:00; Stop 10/22/18 at 01:01; Status DC Magnesium Sulfate 50 ml @ 25 mls/hr 1X ONCE IV Last administered on 10/22/18at 01:11; Start 10/22/18 at 01:00; Stop 10/22/18 at 02:59; Status DC Clopidogrel Bisulfate (Plavix) 75 mg DAILYWBKFT PO Last administered on 10/23/18at 08:56; Start 10/23/18 at 08:00; Stop 10/24/18 at 10:05; Status DC Insulin Glargine (Lantus) 35 units QHS SQ Last administered on 10/27/18 20:58; Start 10/22/18 at 21:00 Sodium Chloride 1,000 ml @ 100 mls/hr Q10H IV Last administered on 10/25/18 06:30; Start 10/24/18 at 10:30; Stop 10/25/18 at 09:55; Status DC Amlodipine Besylate (Norvasc) 5 mg 1X ONCE PO Last administered on 10/24/18 15:50; Start 10/24/18 at 15:30; Stop 10/25/18 at 11:26; Status DC Isosorbide Mononitrate (Imdur) 60 mg DAILY PO Last administered on 10/28/18 08:41; Start 10/24/18 at 16:00 Hydralazine HCl (Apresoline Inj) 10 mg PRN Q4HRS PRN IVP ELEVATED BP, SEE COMMENTS Last administered on 10/27/18 16:03; Start 10/24/18 at 15:30 Furosemide (Lasix) 40 mg 1X ONCE IVP Last administered on 10/25/18 09:37; Start 10/25/18 at 09:00; Stop 10/25/18 at 09:01; Status DC Furosemide (Lasix) 40 mg BID92 PO Last administered on 10/28/18 08:40; Start 10/25/18 at 14:00 Amlodipine Besylate (Norvasc) 10 mg DAILY PO ; Start 10/26/18 at 09:00; Stop 10/26/18 at 09:00; Status DC Amlodipine Besylate (Norvasc) 5 mg 1X ONCE PO Last administered on 10/25/18 12:45; Start 10/25/18 at 10:00; Stop 10/25/18 at 10:01; Status DC Amlodipine Besylate (Norvasc) 5 mg DAILY PO Last administered on 10/28/18 08:39; Start 10/26/18 at 09:00 Zolpidem Tartrate (Ambien) 5 mg PRN QHS PRN PO INSOMNIA Last administered on 10/27/18 20:52; Start 10/25/18 at 21:00 Regadenoson (Lexiscan) 0.4 mg 1X ONCE IV Last administered on 5/10/19at 09:22; Start 10/26/18 at 08:15; Stop 10/26/18 at 08:16; Status DC Diclofenac Sodium (Voltaren) 1 leonard BID TP Last administered on 10/28/18at 08:41; Start 10/27/18 at 11:30 Active Scripts Active Reported Metoprolol Tartrate 25 Mg Tablet 12.5 Mg PO QHS Fish Oil 1,000 mg Softgel ([place]-3S/Dha/Epa/Fish Oil) 1 Each Capsule 1 Each PO Veltassa (Patiromer Calcium Sorbitex) 8.4 Gm Powd.pack 8.4 Gm PO DAILY Vitamin D-3 (Cholecalciferol (Vitamin D3)) 2,000 Unit Tablet 5,000 Unit PO DAILY Aspirin 325 Mg Tablet 1 Tab PO DAILY Amlodipine Besylate 5 Mg Tablet 5 Mg PO DAILY Metoprolol Tartrate 25 Mg Tablet 1 Tab PO DAILY Atorvastatin Calcium 40 Mg Tablet 1 Tab PO QHS Loreaglnaren Parra U-100 (Insulin Glargine,Hum.rec.anlog) 100 Unit/1 Ml Insuln.pen 35 Unit SQ DAILY Lisinopril 20 Mg Tablet 40 Mg PO DAILY Vitals/I & O Vital Sign - Last 24 Hours 10/27/18 10/27/18 10/27/18 10/27/18 13:00 15:00 16:03 19:30 Temp 98.5 98.5 Pulse 81 70 Resp 18 B/P (MAP) 177/75 (109) 175/72 Pulse Ox 99 99 O2 Delivery Nasal Cannula Nasal Cannula Nasal Cannula O2 Flow Rate 2.0 2.0 2.0 10/27/18 10/27/18 10/27/18 10/27/18 19:34 19:40 20:52 22:45 Temp 98.6 98.4 98.6 98.4 Pulse 83 83 74 Resp 20 20 B/P (MAP) 158/68 (98) 158/68 168/73 (104) Pulse Ox 95 97 97 O2 Delivery Nasal Cannula Nasal Cannula Nasal Cannula O2 Flow Rate 1.0 2.0 2.0 10/28/18 10/28/18 10/28/18 10/28/18 02:57 07:00 08:00 08:39 Temp 97.6 98.0 97.6 98.0 Pulse 71 71 71 Resp 17 18 B/P (MAP) 160/68 (98) 136/56 (82) 136/56 Pulse Ox 96 96 O2 Delivery Nasal Cannula Nasal Cannula O2 Flow Rate 1.5 1.5 1.0 10/28/18 10/28/18 10/28/18 10/28/18 08:40 08:41 08:46 11:00 Temp 98.1 98.1 Pulse 71 71 61 Resp 18 B/P (MAP) 136/56 136/56 138/58 (84) Pulse Ox 95 96 O2 Delivery Nasal Cannula Nasal Cannula O2 Flow Rate 1.0 1.5 Intake and Output 10/27/18 10/27/18 10/28/18 14:59 22:59 06:59 Intake Total 180 ml 200 ml Output Total 1050 ml Balance 180 ml -1050 ml 200 ml JAQUAN MENDEZ MD October 28, 2018 11:36
--- NOTE | 2018-10-28 11:55 | PDOC ---
SUBJECTIVE ROS Stable OBJECTIVE Vital Signs Vital Signs Date Time Temp Pulse Resp B/P (MAP) Pulse Ox O2 Delivery O2 Flow Rate FiO2 10/28/18 11:00 98.1 61 18 138/58 (84) 96 Nasal Cannula 1.5 98.1 I & 0 Intake and Output 10/28/18 06:59 Intake Total 380 ml Output Total 1050 ml Balance -670 ml Intake Oral 380 ml Output Urine Total 1050 ml # Voids 5 PHYSICAL EXAM Physical Exam General: Alert, Oriented X3, Cooperative, No acute distress Heart: Regular rate, No murmurs Lungs: Clear Abdomen: Normal bowel sounds, Soft, No tenderness Extremities: No cyanosis, Normal pulses, Other (mild edema +2/4) Skin: No breakdown, Other (Severe right arm bruising noted) DIAGNOSIS/ASSESSMENT Assessment & Plan VIN WITH CR 3.1-SOME ATN BUT STABLE CKD STAGE 3 WITH CR OF 1.5-2.0 ACUTE HYPOXIC RESP FAILURE NSTEMI CHF DIASTOLIC-ACUTE CAD HX WITH PTCA HTN HX-BETTER DM II HX MORBID OBESITY RIGHT ADRENAL ADENOMA PLAN HOLDING WHIT-I hold LASIX if cardiac cath planned IVF 1 ml/kg Ns 12 hrs prior and post procedure MONITOR PULMONARY STATUS discussed risk of GET , pt would like to dw tomorrow WILL FOLLOW Dw RN COMMENT/RELEVANT DATA Meds Current Medications Medications (Trade) Dose Ordered Sig/[place] Start Time Stop Time Status Last Admin Dose Admin Acetaminophen (Tylenol) 650 mg PRN Q4HRS PRN 10/19/18 15:15 10/27/18 00:13 650 MG Al Hydroxide/Mg Hydroxide (Mylanta Plus Xs) 30 ml PRN DAILY PRN 10/19/18 15:15 Albuterol/ Ipratropium (Duoneb) 3 ml Q4HRS 10/19/18 16:00 10/28/18 08:45 3 ML Amlodipine Besylate (Norvasc) 5 mg DAILY 10/26/18 09:00 10/28/18 08:39 5 MG Aspirin (Ecotrin) 81 mg DAILYWBKFT 10/19/18 14:00 10/28/18 08:38 81 MG Atorvastatin Calcium (Lipitor) 40 mg QHS 10/19/18 21:00 10/27/18 20:52 40 MG Clonidine HCl (Catapres) 0.1 mg PRN Q6HRS PRN 10/19/18 15:15 10/24/18 15:27 DC 10/23/18 10:34 0.1 MG Clopidogrel Bisulfate (Plavix) 75 mg DAILYWBKFT 10/23/18 08:00 10/24/18 10:05 DC 10/23/18 08:56 75 MG Dextrose (Dextrose 50%-Water Syringe) 12.5 gm PRN Q15MIN PRN 10/19/18 18:00 Diclofenac Sodium (Voltaren) 1 leonard BID 10/27/18 11:30 10/28/18 08:41 1 LEONARD Docusate Sodium (Colace) 100 mg PRN BID PRN 10/19/18 15:15 10/25/18 14:02 100 MG Enoxaparin Sodium (Lovenox 40mg Syringe) 40 mg DAILY 10/20/18 09:00 10/20/18 09:00 DC Furosemide (Lasix) 40 mg BID92 10/25/18 14:00 10/28/18 08:40 40 MG Guaifenesin (Robitussin) 200 mg PRN Q4HRS PRN 10/19/18 15:15 Heparin Sodium (Porcine) (Heparin Sodium) 3,000 unit PRN Q6HRS PRN 10/19/18 12:30 10/22/18 15:06 DC 10/19/18 20:34 3,000 UNIT Heparin Sodium/ Dextrose 500 ml @ 0 mls/hr CONT PRN 10/19/18 12:30 10/22/18 15:06 DC 10/22/18 02:37 36.8 MLS/HR Hydralazine HCl (Apresoline Inj) 10 mg PRN Q4HRS PRN 10/24/18 15:30 10/27/18 16:03 10 MG Info (Anti-Coagulation Monitoring By Pharmacy) 1 each PRN DAILY PRN 10/19/18 12:30 10/23/18 07:33 DC 10/21/18 09:18 1 EACH Insulin Glargine (Lantus) 35 units QHS 10/22/18 21:00 10/27/18 20:58 35 UNITS Insulin Human Lispro (HumaLOG) 0-7 UNITS TIDWMEALS 10/19/18 18:00 10/26/18 12:56 3 UNITS Isosorbide Mononitrate (Imdur) 60 mg DAILY 10/24/18 16:00 10/28/18 08:41 60 MG Magnesium Sulfate 50 ml @ 25 mls/hr 1X ONCE 10/22/18 01:00 10/22/18 02:59 DC 10/22/18 01:11 25 MLS/HR Metoprolol Tartrate (Lopressor) 25 mg BID 10/19/18 14:00 10/28/18 08:40 25 MG Morphine Sulfate (Morphine Sulfate) 2 mg PRN Q2HR PRN 10/19/18 13:30 10/20/18 13:29 DC Nitroglycerin (Nitro-Bid Oint) 0.5 inch Q6HRS 10/19/18 14:00 10/24/18 15:27 DC 10/24/18 12:35 0.5 INCH Nitroglycerin (Nitrostat) 0.4 mg PRN Q5MIN PRN 10/19/18 13:30 10/20/18 13:29 DC Ondansetron HCl (Zofran) 4 mg PRN Q4HRS PRN 10/19/18 15:15 10/22/18 02:09 4 MG Regadenoson (Lexiscan) 0.4 mg 1X ONCE 10/26/18 08:15 10/26/18 08:16 DC 10/26/18 09:22 0.4 MG Ropinirole HCl (Requip) 2 mg 1X ONCE 10/22/18 01:00 10/22/18 01:01 DC 10/22/18 00:58 2 MG Sodium Bicarbonate (Sodium Bicarb Adult 8.4% Syr) 50 meq 1X ONCE 10/19/18 16:30 10/19/18 16:33 DC 10/19/18 16:42 50 MEQ Sodium Chloride 1,000 ml @ 100 mls/hr Q10H 10/24/18 10:30 10/25/18 09:55 DC 10/25/18 06:30 100 MLS/HR Sodium Chloride (Normal Saline Flush 3ml) 3 ml QSHIFT PRN 10/19/18 15:15 Tamsulosin HCl (Flomax) 0.4 mg QHS 10/21/18 21:00 10/27/18 20:52 0.4 MG Zolpidem Tartrate (Ambien) 5 mg PRN QHS PRN 10/25/18 21:00 10/27/18 20:52 5 MG Lab Laboratory Tests Test 10/27/18 17:21 10/27/18 20:37 10/28/18 03:30 10/28/18 07:26 Glucose (Fingerstick) 128 mg/dL (70-99) 176 mg/dL (70-99) 113 mg/dL (70-99) White Blood Count 7.0 x10^3/uL (4.0-11.0) Red Blood Count 3.48 x10^6/uL (4.30-5.70) Hemoglobin 9.9 g/dL (13.0-17.5) Hematocrit 30.6 % (39.0-53.0) Mean Corpuscular Volume 88 fL (79-100) Mean Corpuscular Hemoglobin 29 pg (25-35) Mean Corpuscular Hemoglobin Concent 33 g/dL (31-37) Red Cell Distribution Width 13.8 % (11.5-14.5) Platelet Count 288 x10^3/uL (140-400) Neutrophils (%) (Auto) 60 % (31-73) Lymphocytes (%) (Auto) 22 % (24-48) Monocytes (%) (Auto) 13 % (0-9) Eosinophils (%) (Auto) 4 % (0-3) Basophils (%) (Auto) 1 % (0-3) Neutrophils # (Auto) 4.2 x10^3uL (1.8-7.7) Lymphocytes # (Auto) 1.5 x10^3/uL (1.0-4.8) Monocytes # (Auto) 0.9 x10^3/uL (0.0-1.1) Eosinophils # (Auto) 0.3 x10^3/uL (0.0-0.7) Basophils # (Auto) 0.1 x10^3/uL (0.0-0.2) Sodium Level 137 mmol/L (136-145) Potassium Level 5.4 mmol/L (3.5-5.1) Chloride Level 101 mmol/L (98-107) Carbon Dioxide Level 28 mmol/L (21-32) Anion Gap 8 (6-14) Blood Urea Nitrogen 71 mg/dL (8-26) Creatinine 3.0 mg/dL (0.7-1.3) Estimated GFR (Cockcroft-Gault) 20.3 Glucose Level 117 mg/dL (70-99) Calcium Level 9.1 mg/dL (8.5-10.1) Results All relevant outside records, renal labs, imaging studies, telemetry/EKG's were reviewed. RODRIGUE LOZANO MD October 28, 2018 11:55
--- NOTE | 2018-10-28 12:18 | PDOC3 ---
Discharge Summary Date of Admission: October 19, 2018 Date of Discharge: October 28, 2018 Follow-Up: 1-2 days Admitting Diagnosis comment: DISCHARGE DX========= Chief Complaint NSTEMI (non-ST elevated myocardial infarction) CHF (congestive heart failure) VIN on CKD stage 3 Obesity Tobacco Abuse Hyperlipidemia HTN BPH Acute hypoxic respiratory failure - 2/2 [id number] diastolic heart failure and bilateral pleural effusions Coronary artery disease s/p 3-vessel disease with percutaneous coronary intervention of circumflex in the past 2012 Percutaneous coronary intervention was performed on the Proximal circumflex (LESION 1) . The lesion stenosis prior to intervention was 99% with ALVARO 2 flow Cardiac catheterization MONDAY History of Present Illness History of Present Illness Patient seen and examined MPI in progress as patient was seen day # 2 Discussed with nurse Patient well appearing Cr maintained resumed diuretics, IVF stopped 49 min pt exam, chart review, > 50% of time spent with exam, chart review, pt care coordination Vitals Vitals Vital Signs Date Time Temp Pulse Resp B/P (MAP) Pulse Ox O2 Delivery O2 Flow Rate FiO2 10/28/18 11:00 98.1 61 18 138/58 (84) 96 Nasal Cannula 1.5 98.1 Physical Exam General: Alert, Oriented X3, Cooperative, No acute distress Heart: Regular rate, No murmurs Lungs: Clear Abdomen: Normal bowel sounds, Soft, No tenderness Extremities: No cyanosis, Normal pulses, Other (mild edema +2/4) Skin: No breakdown, Other (Severe right arm bruising noted) Labs LABS Rest: Stress: Viability: Radiopharm. Tc99m Sestamibi Dose 32mCi Duration 10min. Img Date 10/26/2018 Inj-Img Time 90min. Stress Admin Site: IV - Left Wrist Manager Pharmaceutical: PAULINA Cline, ARRT (R)(N) STRESS DATA End Diast. Vol. 141.0ml Av. Heart Rate 85.0bpm End Syst. Vol. 50.0ml CO Index BSA 0.0L/min Myocardial Mass 180.0g Eject. Fraction 65.0% Stress Rates Pk. Fill Rate 2.84EDV/sec LVtime Pk. Fill 178.12msec Pk. Empty Rate 4.10ESV/sec LVtime Pk. Eject 168.97msec /3 Pk. Fill 0.85EDV/sec Stress Scores Regional WT 2.00 Summed WT 14.00 Regional WM 0.00 Summed WM 3.00 LV Perfusion There is a moderate sized, severe in intensity, mid to distal septal, anterior and anterolateral defect suggestive of ischemia in the LAD territory. Wall Motion Mild LV dysfunction. EF 50% LV Perf. Quant 17 Seg. SSS 15.00 Stress Defect Extent (% LAD) 37.50 Rest Defect Extent (% LAD) Rev. Defect Extent (% LAD) 0.00 Stress Defect Extent (% LCX) 50.00 Rest Defect Extent (% LCX) Rev. Defect Extent (% LCX) 0.00 Stress Defect Extent (% RCA) 0.00 Rest Defect Extent (% RCA) Rev. Defect Extent (% RCA) 0.00 Stress Defect Extent (% MICHAEL) 29.60 Rest Defect Extent (% MICHAEL) Rev. Defect Extent (% MICHAEL) 0.00 Other Information Quality:Average Risk Assessment: Moderate-High Risk Conclusion 1. No evidence of stress induced EKG changes. 2. Abnormal perfusion study with LAD territory ischemia. 3. Mild LV dysfunction. EF 50% 4. Moderate to high risk study Recommendations Cardiac catheterization PT PREFERS TO WAIT FOR NOW FINAL DIAGNOSIS Problems Medical Problems: (1) Acute on chronic renal insufficiency Status: Acute (2) CHF (congestive heart failure) Status: Acute (3) Hypoxemia Status: Acute (4) NSTEMI (non-ST elevated myocardial infarction) Status: Acute Brief Hospital Course Mr. Wiggins is a 78 old [sex] who presented with [ CA] CONDITION AT DISCHARGE: Improved Discharge Medications Current Medications Albuterol/ Ipratropium (Duoneb) 3 ml 1X ONCE NEB Last administered on 10/19/18at 12:00; Start 10/19/18 at 11:45; Stop 10/19/18 at 11:46; Status DC Heparin Sodium (Porcine) (Heparin Sodium) 4,000 unit 1X ONCE IV Last administered on 10/19/18at 12:29; Start 10/19/18 at 12:30; Stop 10/19/18 at 12:31; Status DC Heparin Sodium/ Dextrose 500 ml @ 0 mls/hr CONT PRN IV SEE I/O RECORD Last administered on 10/22/18at 02:37; Start 10/19/18 at 12:30; Stop 10/22/18 at 15:06; Status DC Heparin Sodium (Porcine) (Heparin Sodium) 3,000 unit PRN Q6HRS PRN IV FOR UFH LEVEL LESS THAN 0.2 Last administered on 10/19/18at 20:34; Start 10/19/18 at 12:30; Stop 10/22/18 at 15:06; Status DC Info (Anti-Coagulation Monitoring By Pharmacy) 1 each PRN DAILY PRN MC SEE COMMENTS Last administered on 10/21/18 09:18; Start 10/19/18 at 12:30; Stop 10/23/18 at 07:33; Status DC Furosemide (Lasix) 60 mg 1X ONCE IVP Last administered on 10/19/18 13:00; Start 10/19/18 at 13:00; Stop 10/19/18 at 13:01; Status DC Ondansetron HCl (Zofran) 4 mg PRN Q8HRS PRN IV NAUSEA/VOMITING; Start 10/19/18 at 13:30; Stop 10/20/18 at 13:29; Status DC Morphine Sulfate (Morphine Sulfate) 2 mg PRN Q2HR PRN IV PAIN; Start 10/19/18 at 13:30; Stop 10/20/18 at 13:29; Status DC Nitroglycerin (Nitrostat) 0.4 mg PRN Q5MIN PRN SL CHEST PAIN; Start 10/19/18 at 13:30; Stop 10/20/18 at 13:29; Status DC Albuterol/ Ipratropium (Duoneb) 3 ml RTQID NEB ; Start 10/19/18 at 16:00; Stop 10/19/18 at 16:00; Status DC Amlodipine Besylate (Norvasc) 5 mg 1X ONCE PO Last administered on 10/19/18at 13:53; Start 10/19/18 at 13:30; Stop 10/19/18 at 13:31; Status DC Nitroglycerin (Nitro-Bid Oint) 0.5 inch Q6HRS TP Last administered on 10/24/18 12:35; Start 10/19/18 at 14:00; Stop 10/24/18 at 15:27; Status DC Aspirin (Ecotrin) 81 mg DAILYWBKFT PO Last administered on 10/28/18at 08:38; Start 10/19/18 at 14:00 Metoprolol Tartrate (Lopressor) 25 mg BID PO Last administered on 10/28/18 08:40; Start 10/19/18 at 14:00 Atorvastatin Calcium (Lipitor) 40 mg QHS PO Last administered on 10/27/18 20:52; Start 10/19/18 at 21:00 Sodium Chloride (Normal Saline Flush 3ml) 3 ml QSHIFT PRN IV AFTER MEDS AND BLOOD DRAWS; Start 10/19/18 at 15:15 Ondansetron HCl (Zofran) 4 mg PRN Q4HRS PRN IV NAUSEA/VOMITING Last administered on 10/22/18 02:09; Start 10/19/18 at 15:15 Acetaminophen (Tylenol) 650 mg PRN Q4HRS PRN PO TEMP OVER 100.4F OR MILD PAIN Last administered on 10/27/18 00:13; Start 10/19/18 at 15:15 Al Hydroxide/Mg Hydroxide (Mylanta Plus Xs) 30 ml PRN DAILY PRN PO HEARTBURN / GAS; Start 10/19/18 at 15:15 Clonidine HCl (Catapres) 0.1 mg PRN Q6HRS PRN PO SBP>160 OR DBP>90 Last admini stered on 10/23/18 10:34; Start 10/19/18 at 15:15; Stop 10/24/18 at 15:27; Status DC Docusate Sodium (Colace) 100 mg PRN BID PRN PO CONSTIPATION Last administered on 10/25/18 14:02; Start 10/19/18 at 15:15 Albuterol/ Ipratropium (Duoneb) 3 ml Q4HRS NEB Last administered on 10/28/18 08:45; Start 10/19/18 at 16:00 Guaifenesin (Robitussin) 200 mg PRN Q4HRS PRN PO COUGH; Start 10/19/18 at 15:15 Enoxaparin Sodium (Lovenox 40mg Syringe) 40 mg DAILY SQ ; Start 10/20/18 at 09:00; Stop 10/20/18 at 09:00; Status DC Sodium Bicarbonate (Sodium Bicarb Adult 8.4% Syr) 50 meq 1X ONCE IV Last administered on 10/19/18 16:42; Start 10/19/18 at 16:30; Stop 10/19/18 at 16:33; Status DC Insulin Human Lispro (HumaLOG) 0-7 UNITS TIDWMEALS SQ Last administered on 10/26/18at 12:56; Start 10/19/18 at 18:00 Dextrose (Dextrose 50%-Water Syringe) 12.5 gm PRN Q15MIN PRN IV SEE COMMENTS; Start 10/19/18 at 18:00 Furosemide (Lasix) 40 mg Q8HRS IVP Last administered on 10/21/18 06:22; Start 10/20/18 at 14:00; Stop 10/21/18 at 16:45; Status DC Amlodipine Besylate (Norvasc) 5 mg DAILY PO Last administered on 10/25/18 08:39; Start 10/21/18 at 12:30; Stop 10/25/18 at 09:33; Status DC Tamsulosin HCl (Flomax) 0.4 mg QHS PO Last administered on 10/27/18at 20:52; Start 10/21/18 at 21:00 Ropinirole HCl (Requip) 2 mg 1X ONCE PO Last administered on 10/22/18 00:58; Start 10/22/18 at 01:00; Stop 10/22/18 at 01:01; Status DC Magnesium Sulfate 50 ml @ 25 mls/hr 1X ONCE IV Last administered on 10/22/18 01:11; Start 10/22/18 at 01:00; Stop 10/22/18 at 02:59; Status DC Clopidogrel Bisulfate (Plavix) 75 mg DAILYWBKFT PO Last administered on 10/23/18at 08:56; Start 10/23/18 at 08:00; Stop 10/24/18 at 10:05; Status DC Insulin Glargine (Lantus) 35 units QHS SQ Last administered on 10/27/18 20:58; Start 10/22/18 at 21:00 Sodium Chloride 1,000 ml @ 100 mls/hr Q10H IV Last administered on 10/25/18 06:30; Start 10/24/18 at 10:30; Stop 10/25/18 at 09:55; Status DC Amlodipine Besylate (Norvasc) 5 mg 1X ONCE PO Last administered on 10/24/18at 15:50; Start 10/24/18 at 15:30; Stop 10/25/18 at 11:26; Status DC Isosorbide Mononitrate (Imdur) 60 mg DAILY PO Last administered on 10/28/18 08:41; Start 10/24/18 at 16:00 Hydralazine HCl (Apresoline Inj) 10 mg PRN Q4HRS PRN IVP ELEVATED BP, SEE COMMENTS Last administered on 10/27/18 16:03; Start 10/24/18 at 15:30 Furosemide (Lasix) 40 mg 1X ONCE IVP Last administered on 10/25/18 09:37; Start 10/25/18 at 09:00; Stop 10/25/18 at 09:01; Status DC Furosemide (Lasix) 40 mg BID92 PO Last administered on 10/28/18 08:40; Start 10/25/18 at 14:00 Amlodipine Besylate (Norvasc) 10 mg DAILY PO ; Start 10/26/18 at 09:00; Stop 10/26/18 at 09:00; Status DC Amlodipine Besylate (Norvasc) 5 mg 1X ONCE PO Last administered on 10/25/18 12:45; Start 10/25/18 at 10:00; Stop 10/25/18 at 10:01; Status DC Amlodipine Besylate (Norvasc) 5 mg DAILY PO Last administered on 10/28/18 08:39; Start 10/26/18 at 09:00 Zolpidem Tartrate (Ambien) 5 mg PRN QHS PRN PO INSOMNIA Last administered on 10/27/18 20:52; Start 10/25/18 at 21:00 Regadenoson (Lexiscan) 0.4 mg 1X ONCE IV Last administered on 10/26/18 09:22; Start 10/26/18 at 08:15; Stop 10/26/18 at 08:16; Status DC Diclofenac Sodium (Voltaren) 1 leonard BID TP Last administered on 10/28/18 08:41; Start 10/27/18 at 11:30 Active Scripts Active Reported Metoprolol Tartrate 25 Mg Tablet 12.5 Mg PO QHS Fish Oil 1,000 mg Softgel ([place]-3S/Dha/Epa/Fish Oil) 1 Each Capsule 1 Each PO Veltassa (Patiromer Calcium Sorbitex) 8.4 Gm Powd.pack 8.4 Gm PO DAILY Vitamin D-3 (Cholecalciferol (Vitamin D3)) 2,000 Unit Tablet 5,000 Unit PO DAILY Aspirin 325 Mg Tablet 1 Tab PO DAILY Amlodipine Besylate 5 Mg Tablet 5 Mg PO DAILY Metoprolol Tartrate 25 Mg Tablet 1 Tab PO DAILY Atorvastatin Calcium 40 Mg Tablet 1 Tab PO QHS Suzanne Parra U-100 (Insulin Glargine,Hum.rec.anlog) 100 Unit/1 Ml Insuln.pen 35 Unit SQ DAILY Lisinopril 20 Mg Tablet 40 Mg PO DAILY Vital Signs Vital Signs Date Time Temp Pulse Resp B/P (MAP) Pulse Ox O2 Delivery O2 Flow Rate FiO2 10/28/18 11:00 98.1 61 18 138/58 (84) 96 Nasal Cannula 1.5 98.1 Labs Laboratory Tests Test 10/26/18 16:29 10/26/18 20:47 10/27/18 03:30 10/27/18 07:56 Glucose (Fingerstick) 130 mg/dL (70-99) 140 mg/dL (70-99) 111 mg/dL (70-99) White Blood Count 7.1 x10^3/uL (4.0-11.0) Red Blood Count 3.45 x10^6/uL (4.30-5.70) Hemoglobin 10.0 g/dL (13.0-17.5) Hematocrit 30.2 % (39.0-53.0) Mean Corpuscular Volume 88 fL (79-100) Mean Corpuscular Hemoglobin 29 pg (25-35) Mean Corpuscular Hemoglobin Concent 33 g/dL (31-37) Red Cell Distribution Width 13.6 % (11.5-14.5) Platelet Count 277 x10^3/uL (140-400) Neutrophils (%) (Auto) 66 % (31-73) Lymphocytes (%) (Auto) 19 % (24-48) Monocytes (%) (Auto) 11 % (0-9) Eosinophils (%) (Auto) 3 % (0-3) Basophils (%) (Auto) 1 % (0-3) Neutrophils # (Auto) 4.7 x10^3uL (1.8-7.7) Lymphocytes # (Auto) 1.4 x10^3/uL (1.0-4.8) Monocytes # (Auto) 0.8 x10^3/uL (0.0-1.1) Eosinophils # (Auto) 0.2 x10^3/uL (0.0-0.7) Basophils # (Auto) 0.1 x10^3/uL (0.0-0.2) Sodium Level 137 mmol/L (136-145) Potassium Level 4.9 mmol/L (3.5-5.1) Chloride Level 101 mmol/L (98-107) Carbon Dioxide Level 28 mmol/L (21-32) Anion Gap 8 (6-14) Blood Urea Nitrogen 72 mg/dL (8-26) Creatinine 3.1 mg/dL (0.7-1.3) Estimated GFR (Cockcroft-Gault) 19.6 Glucose Level 126 mg/dL (70-99) Calcium Level 8.5 mg/dL (8.5-10.1) Test 10/27/18 11:25 10/27/18 17:21 10/27/18 20:37 10/28/18 03:30 Glucose (Fingerstick) 140 mg/dL (70-99) 128 mg/dL (70-99) 176 mg/dL (70-99) White Blood Count 7.0 x10^3/uL (4.0-11.0) Red Blood Count 3.48 x10^6/uL (4.30-5.70) Hemoglobin 9.9 g/dL (13.0-17.5) Hematocrit 30.6 % (39.0-53.0) Mean Corpuscular Volume 88 fL (79-100) Mean Corpuscular Hemoglobin 29 pg (25-35) Mean Corpuscular Hemoglobin Concent 33 g/dL (31-37) Red Cell Distribution Width 13.8 % (11.5-14.5) Platelet Count 288 x10^3/uL (140-400) Neutrophils (%) (Auto) 60 % (31-73) Lymphocytes (%) (Auto) 22 % (24-48) Monocytes (%) (Auto) 13 % (0-9) Eosinophils (%) (Auto) 4 % (0-3) Basophils (%) (Auto) 1 % (0-3) Neutrophils # (Auto) 4.2 x10^3uL (1.8-7.7) Lymphocytes # (Auto) 1.5 x10^3/uL (1.0-4.8) Monocytes # (Auto) 0.9 x10^3/uL (0.0-1.1) Eosinophils # (Auto) 0.3 x10^3/uL (0.0-0.7) Basophils # (Auto) 0.1 x10^3/uL (0.0-0.2) Sodium Level 137 mmol/L (136-145) Potassium Level 5.4 mmol/L (3.5-5.1) Chloride Level 101 mmol/L (98-107) Carbon Dioxide Level 28 mmol/L (21-32) Anion Gap 8 (6-14) Blood Urea Nitrogen 71 mg/dL (8-26) Creatinine 3.0 mg/dL (0.7-1.3) Estimated GFR (Cockcroft-Gault) 20.3 Glucose Level 117 mg/dL (70-99) Calcium Level 9.1 mg/dL (8.5-10.1) Test 10/28/18 07:26 Glucose (Fingerstick) 113 mg/dL (70-99) Laboratory Tests Test 10/27/18 17:21 10/27/18 20:37 10/28/18 03:30 10/28/18 07:26 Glucose (Fingerstick) 128 mg/dL (70-99) 176 mg/dL (70-99) 113 mg/dL (70-99) White Blood Count 7.0 x10^3/uL (4.0-11.0) Red Blood Count 3.48 x10^6/uL (4.30-5.70) Hemoglobin 9.9 g/dL (13.0-17.5) Hematocrit 30.6 % (39.0-53.0) Mean Corpuscular Volume 88 fL (79-100) Mean Corpuscular Hemoglobin 29 pg (25-35) Mean Corpuscular Hemoglobin Concent 33 g/dL (31-37) Red Cell Distribution Width 13.8 % (11.5-14.5) Platelet Count 288 x10^3/uL (140-400) Neutrophils (%) (Auto) 60 % (31-73) Lymphocytes (%) (Auto) 22 % (24-48) Monocytes (%) (Auto) 13 % (0-9) Eosinophils (%) (Auto) 4 % (0-3) Basophils (%) (Auto) 1 % (0-3) Neutrophils # (Auto) 4.2 x10^3uL (1.8-7.7) Lymphocytes # (Auto) 1.5 x10^3/uL (1.0-4.8) Monocytes # (Auto) 0.9 x10^3/uL (0.0-1.1) Eosinophils # (Auto) 0.3 x10^3/uL (0.0-0.7) Basophils # (Auto) 0.1 x10^3/uL (0.0-0.2) Sodium Level 137 mmol/L (136-145) Potassium Level 5.4 mmol/L (3.5-5.1) Chloride Level 101 mmol/L (98-107) Carbon Dioxide Level 28 mmol/L (21-32) Anion Gap 8 (6-14) Blood Urea Nitrogen 71 mg/dL (8-26) Creatinine 3.0 mg/dL (0.7-1.3) Estimated GFR (Cockcroft-Gault) 20.3 Glucose Level 117 mg/dL (70-99) Calcium Level 9.1 mg/dL (8.5-10.1) Allergies Allergies Coded Allergies Type Severity Reaction Last Updated Verified No Known Drug Allergies 06/03/13 No Disposition/Orders: Other (D/C TO SELECT D/C PLANNING TIME 38 MIN) Patient Instructions D/C PLANNING 38 MIN JAQUAN MENDEZ MD October 28, 2018 12:18
[2018-10-28 15:00] VITALS: BP 153/67
--- NOTE | 2018-10-28 15:50 | RESP ---
DATE OF SERVICE: 10/24/2018 ATTENDING PHYSICIAN: Dr. Ingram. The patient underwent nocturnal desaturation study initially on room air, O2 saturation was 78%. He was placed on 2 liters per nasal cannula for the study. He had periods of oxyhemoglobin desaturation below 88%. IMPRESSION: Abnormal nocturnal desaturation study despite 2 liters of oxygen supplementation. PLAN: 1. Recommend polysomnogram. 2. Continue oxygen supplementation at 2 liters at bedtime. NHI FERNÁNDEZ MD DR: JUAN ANTONIO/nts JOB#: [id number] / [id number]
--- NOTE | 2018-10-28 15:53 | PDOC ---
PULMONARY PROGRESS NOTES Subjective PT NOT SOA Vitals Vital Signs Date Time Temp Pulse Resp B/P (MAP) Pulse Ox O2 Delivery O2 Flow Rate FiO2 10/28/18 15:00 98.3 67 18 153/67 (95) 95 Nasal Cannula 1.5 98.3 ROS: No Nausea, No Abdominal Pain, No Increase Cough General: Alert, No acute distress Lungs: Clear Cardiovascular: S1 Abdomen: Soft Neuro Exam: Alert Extremities: Other (1+edema) Labs Laboratory Tests Test 10/26/18 16:29 10/26/18 20:47 10/27/18 03:30 10/27/18 07:56 Glucose (Fingerstick) 130 mg/dL (70-99) 140 mg/dL (70-99) 111 mg/dL (70-99) White Blood Count 7.1 x10^3/uL (4.0-11.0) Red Blood Count 3.45 x10^6/uL (4.30-5.70) Hemoglobin 10.0 g/dL (13.0-17.5) Hematocrit 30.2 % (39.0-53.0) Mean Corpuscular Volume 88 fL (79-100) Mean Corpuscular Hemoglobin 29 pg (25-35) Mean Corpuscular Hemoglobin Concent 33 g/dL (31-37) Red Cell Distribution Width 13.6 % (11.5-14.5) Platelet Count 277 x10^3/uL (140-400) Neutrophils (%) (Auto) 66 % (31-73) Lymphocytes (%) (Auto) 19 % (24-48) Monocytes (%) (Auto) 11 % (0-9) Eosinophils (%) (Auto) 3 % (0-3) Basophils (%) (Auto) 1 % (0-3) Neutrophils # (Auto) 4.7 x10^3uL (1.8-7.7) Lymphocytes # (Auto) 1.4 x10^3/uL (1.0-4.8) Monocytes # (Auto) 0.8 x10^3/uL (0.0-1.1) Eosinophils # (Auto) 0.2 x10^3/uL (0.0-0.7) Basophils # (Auto) 0.1 x10^3/uL (0.0-0.2) Sodium Level 137 mmol/L (136-145) Potassium Level 4.9 mmol/L (3.5-5.1) Chloride Level 101 mmol/L (98-107) Carbon Dioxide Level 28 mmol/L (21-32) Anion Gap 8 (6-14) Blood Urea Nitrogen 72 mg/dL (8-26) Creatinine 3.1 mg/dL (0.7-1.3) Estimated GFR (Cockcroft-Gault) 19.6 Glucose Level 126 mg/dL (70-99) Calcium Level 8.5 mg/dL (8.5-10.1) Test 10/27/18 11:25 10/27/18 17:21 10/27/18 20:37 10/28/18 03:30 Glucose (Fingerstick) 140 mg/dL (70-99) 128 mg/dL (70-99) 176 mg/dL (70-99) White Blood Count 7.0 x10^3/uL (4.0-11.0) Red Blood Count 3.48 x10^6/uL (4.30-5.70) Hemoglobin 9.9 g/dL (13.0-17.5) Hematocrit 30.6 % (39.0-53.0) Mean Corpuscular Volume 88 fL (79-100) Mean Corpuscular Hemoglobin 29 pg (25-35) Mean Corpuscular Hemoglobin Concent 33 g/dL (31-37) Red Cell Distribution Width 13.8 % (11.5-14.5) Platelet Count 288 x10^3/uL (140-400) Neutrophils (%) (Auto) 60 % (31-73) Lymphocytes (%) (Auto) 22 % (24-48) Monocytes (%) (Auto) 13 % (0-9) Eosinophils (%) (Auto) 4 % (0-3) Basophils (%) (Auto) 1 % (0-3) Neutrophils # (Auto) 4.2 x10^3uL (1.8-7.7) Lymphocytes # (Auto) 1.5 x10^3/uL (1.0-4.8) Monocytes # (Auto) 0.9 x10^3/uL (0.0-1.1) Eosinophils # (Auto) 0.3 x10^3/uL (0.0-0.7) Basophils # (Auto) 0.1 x10^3/uL (0.0-0.2) Sodium Level 137 mmol/L (136-145) Potassium Level 5.4 mmol/L (3.5-5.1) Chloride Level 101 mmol/L (98-107) Carbon Dioxide Level 28 mmol/L (21-32) Anion Gap 8 (6-14) Blood Urea Nitrogen 71 mg/dL (8-26) Creatinine 3.0 mg/dL (0.7-1.3) Estimated GFR (Cockcroft-Gault) 20.3 Glucose Level 117 mg/dL (70-99) Calcium Level 9.1 mg/dL (8.5-10.1) Test 10/28/18 07:26 10/28/18 12:09 Glucose (Fingerstick) 113 mg/dL (70-99) 118 mg/dL (70-99) Laboratory Tests Test 10/27/18 17:21 10/27/18 20:37 10/28/18 03:30 10/28/18 07:26 Glucose (Fingerstick) 128 mg/dL (70-99) 176 mg/dL (70-99) 113 mg/dL (70-99) White Blood Count 7.0 x10^3/uL (4.0-11.0) Red Blood Count 3.48 x10^6/uL (4.30-5.70) Hemoglobin 9.9 g/dL (13.0-17.5) Hematocrit 30.6 % (39.0-53.0) Mean Corpuscular Volume 88 fL (79-100) Mean Corpuscular Hemoglobin 29 pg (25-35) Mean Corpuscular Hemoglobin Concent 33 g/dL (31-37) Red Cell Distribution Width 13.8 % (11.5-14.5) Platelet Count 288 x10^3/uL (140-400) Neutrophils (%) (Auto) 60 % (31-73) Lymphocytes (%) (Auto) 22 % (24-48) Monocytes (%) (Auto) 13 % (0-9) Eosinophils (%) (Auto) 4 % (0-3) Basophils (%) (Auto) 1 % (0-3) Neutrophils # (Auto) 4.2 x10^3uL (1.8-7.7) Lymphocytes # (Auto) 1.5 x10^3/uL (1.0-4.8) Monocytes # (Auto) 0.9 x10^3/uL (0.0-1.1) Eosinophils # (Auto) 0.3 x10^3/uL (0.0-0.7) Basophils # (Auto) 0.1 x10^3/uL (0.0-0.2) Sodium Level 137 mmol/L (136-145) Potassium Level 5.4 mmol/L (3.5-5.1) Chloride Level 101 mmol/L (98-107) Carbon Dioxide Level 28 mmol/L (21-32) Anion Gap 8 (6-14) Blood Urea Nitrogen 71 mg/dL (8-26) Creatinine 3.0 mg/dL (0.7-1.3) Estimated GFR (Cockcroft-Gault) 20.3 Glucose Level 117 mg/dL (70-99) Calcium Level 9.1 mg/dL (8.5-10.1) Test 10/28/18 12:09 Glucose (Fingerstick) 118 mg/dL (70-99) Medications Active Scripts Medications Dose Route/Sig Max Daily Dose Days Date Category Metoprolol Tartrate 25 Mg Tablet 12.5 Mg PO QHS 10/19/18 Reported Fish Oil 1,000 mg Softgel (Vanderbilt-3S/Dha/Epa/Fish Oil) 1 Each Capsule 1 Each PO 10/19/18 Reported Veltassa (Patiromer Calcium Sorbitex) 8.4 Gm Powd.pack 8.4 Gm PO DAILY 10/19/18 Reported Vitamin D-3 (Cholecalciferol (Vitamin D3)) 2,000 Unit Tablet 5,000 Unit PO DAILY 10/19/18 Reported Aspirin 325 Mg Tablet 1 Tab PO DAILY 10/19/18 Reported Amlodipine Besylate 5 Mg Tablet 5 Mg PO DAILY 10/19/18 Reported Metoprolol Tartrate 25 Mg Tablet 1 Tab PO DAILY 10/19/18 Reported Atorvastatin Calcium 40 Mg Tablet 1 Tab PO QHS 10/19/18 Reported Suzanne Parra U-100 (Insulin Glargine,Hum.rec.anlog) 100 Unit/1 Ml Insuln.pen 35 Unit SQ DAILY 10/19/18 Reported Lisinopril 20 Mg Tablet 40 Mg PO DAILY 06/03/13 Reported Comments cxr 5/6 IMPROVED RIGHT EFFUSION/ SMALL- MODERATE LEFT EFFUSION Impression . 1. Acute hypoxic respiratory failure secondary to suspected [id number] diastolic heart failure and bilateral pleural effusions. Clinically, less likely thromboembolic disease. His venous Dopplers of the lower extremities were negative for DVT. Could not lay flat for V/Q/. No need for further work up 2. History of coronary artery disease, 3-vessel disease with percutaneous coronary intervention of circumflex in the past and now with a non-ST myocardial infarction. 3. Suspected obstructive sleep apnea. 4. Chronic kidney disease, which makes it difficult to diurese. CT CHEST IMPRESSION: 1. Small to moderate bilateral pleural effusions. 2. Bilateral infiltrates/atelectasis. 3. Right adrenal mass. 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 Plan . OK TO TRANSFER D/W DR Loya RISK OF ESRD POST CATH IS HIGH MEDICAL MANAGEMENT FOR OW SLEEP STUDY OUT PT D/W CXR NO CHANGE NO NEED FOR THORACENTESIS NHI SIMMONS MD October 28, 2018 15:53
[2018-10-28] MEDS ORDERED: SODIUM POLYSTYRENE SULFONATE 15 GM/60 ML ORAL.SUSP. PO ONE (16:00)
--- NOTE | 2018-10-28 17:24 | NUR ---
Discharge Note: LEANA DODD [address] [place] [address] Discharge instructions and discharge home medications reviewed with Patient and a copy given. All questions have been answered and understanding verbalized. The following instructions and handouts were given: Discontinued lines - none Patient discharged to LTAC with wheelchair via [facility]
--- NOTE | 2018-10-28 17:30 | PDOC ---
CARDIOLOGY PROGRESS NOTE SUBJECTIVE: No acute events overnight. The patient is resting comfortable in his bed. He denies any angina. Denies any dyspnea at rest. He underwent a stress test which revealed an anterior wall perfusion defect. OBJECTIVE: Vital SIgns: Vital Signs Date Time Temp Pulse Resp B/P (MAP) Pulse Ox O2 Delivery O2 Flow Rate FiO2 10/28/18 16:54 Nasal Cannula 1.0 10/28/18 15:00 98.3 67 18 153/67 (95) 95 98.3 I & O Intake and Output 10/28/18 06:59 Intake Total 380 ml Output Total 1050 ml Balance -670 ml Intake Oral 380 ml Output Urine Total 1050 ml # Voids 5 Objective: Patient likely has sleep apnea as he was falling asleep upon my interview and examination Normal heart tones Lung sounds are distant but clear Obese protuberant abdomen Trace lower ext edema No focal neurological deficits CURRENT MEDICATIONS: Aspirin, metoprolol, amlodipine, atorvastatin, Imdur, Lasix DIAGNOSTIC TESTING: Nuclear stress test with a moderate to large size anterior wall reversible perfusion defect Creatinine elevated 3.0 ASSESSMENT: 1. Acute on chronic diastolic heart failure, present on admission improving 2. Coronary artery disease with an abnormal stress test 3. Severe chronic kidney disease 4. Debility and morbid obesity without any angina at rest or dyspnea at rest PLAN: 1. I had a long discussion with the patient today and notify him about his abn ormal stress test and normal treatment options. Given his significant renal dysfunction he would be high risk for progression to end-stage renal disease. Apparently at baseline he is mostly sedentary and does not have any significant angina or dyspnea. All of his troponin was elevated here and his stress test is abnormal he does not wish to risk possibility of dialysis. In light of this and is preserved LV function would defer any cardiac catheterization at this time for medical therapy. The patient understands the risks, benefits and alternatives. This was also conveyed to the patient's by Dr. Can. Ok to DC today to rehab facility for continued care. If he has any significant angina, will then plan for PCI. Close outpt f/u for HF. Thanks JUNE VILLALOBOS MD October 28, 2018 17:30
== END 2018-10-28 17:35 | DRG 280 ==
LOC: ER 11:28 → 1 WEST ICU 13:19 → 2 NORTH 10-21 19:45
PROVIDERS: ADMIT Family Medicine; ATTEND Family Medicine
DX: I21.4 Non-ST elevation (NSTEMI) myocardial infarction (principal); N17.0 Acute kidney failure with tubular necrosis; J96.01 Acute respiratory failure with hypoxia; I50.43 Acute on chronic combined systolic (congestive) and diastolic (congestive) heart failure; I13.0 Hypertensive heart and chronic kidney disease with heart failure and stage 1 through stage 4 chronic kidney disease, or unspecified chronic kidney disease; J98.11 Atelectasis; Z68.41 Body mass index [BMI] 40.0-44.9, adult; N18.4 Chronic kidney disease, stage 4 (severe); D35.01 Benign neoplasm of right adrenal gland; E11.22 Type 2 diabetes mellitus with diabetic chronic kidney disease; E11.319 Type 2 diabetes mellitus with unspecified diabetic retinopathy without macular edema; E66.01 Morbid (severe) obesity due to excess calories; E78.00 Pure hypercholesterolemia, unspecified; E78.5 Hyperlipidemia, unspecified; G47.33 Obstructive sleep apnea (adult) (pediatric); I25.10 Atherosclerotic heart disease of native coronary artery without angina pectoris; I25.2 Old myocardial infarction; I48.91 Unspecified atrial fibrillation; K57.90 Diverticulosis of intestine, part unspecified, without perforation or abscess without bleeding; N40.1 Benign prostatic hyperplasia with lower urinary tract symptoms; T50.2X5A Adverse effect of carbonic-anhydrase inhibitors, benzothiadiazides and other diuretics, initial encounter; Z72.0 Tobacco use; Z82.49 Family history of ischemic heart disease and other diseases of the circulatory system; Z95.5 Presence of coronary angioplasty implant and graft; Z90.49 Acquired absence of other specified parts of digestive tract
CPT/HCPCS: 36415; 36600; 71045; 71046; 71250; 73010; 73030; 78452; 80048; 80053; 80061; 81001; 82805; 82962; 83735; 83880; 84484; 85025; 85027; 85379; 85520; 87641; 87804; 93005; 93017; 93306; 93308; 93320; 93325; 93970; 94640; 94760; 94799; 96374; 96375; A9500; J0360; J1644; J1815; J1940; J2405; J2785; J3475; J7030; J7620; 97110; 97116; 97530; 97535; 99285-25

== ENCOUNTER 2019-01-29 16:58 | Inpatient (IN) | payer MEDICARE, BC ==
[~2019-01-29] VITALS: Ht 165.1 cm; Wt 115.7 kg
[~2019-01-29 16:58] MED LIST changes: +AMLO5TAB10 PO; +ASPI325T8 PO; +ATOR40TA59 PO; +CHOL200059 PO; +INSU100I32 SQ; +METO25TA4 PO; +OMEG-165 PO; +PATI8.4P PO
[2019-01-29] MEDS ORDERED: IPRATRPIUM/ALBUTEROL 0.5/2.5MG 3 ML NEBU. NEB ONE (19:45)
[2019-01-29] MEDS ORDERED: methylPREDNISolone SOD SUCC PF 125 MG/2 ML VIAL. IV ONE (19:45)
[2019-01-29 19:58] LABS: BASO # 0.1 x10^3/uL (0.0-0.2); BASO % 1 % (0-3); EOS # 0.1 x10^3/uL (0.0-0.7); EOS % 1 % (0-3); HEMATOCRIT 33.3 % (39.0-53.0); HEMOGLOBIN 11.2 g/dL (13.0-17.5); LYMPH # 1.5 x10^3/uL (1.0-4.8); LYMPH % 18 % (24-48); MEAN CORPUSCULAR HEMOGLOBIN 28 pg (25-35); MEAN CORPUSCULAR HGB CONC 34 g/dL (31-37); MEAN CORPUSCULAR VOLUME 85 fL (79-100); MONO # 0.8 x10^3/uL (0.0-1.1); MONO % 9 % (0-9); NEUT # 6.2 x10^3/uL (1.8-7.7); NEUT % 71 % (31-73); PLATELET COUNT 285 x10^3/uL (140-400); RED BLOOD COUNT 3.93 x10^6/uL (4.30-5.70); RED CELL DISTRIBUTION WIDTH 14.7 % (11.5-14.5); WHITE BLOOD COUNT 8.7 x10^3/uL (4.0-11.0)
[2019-01-29] MEDS ORDERED: hydrALAZINE 20 MG/ML VIAL. IVP ONE (20:00)
[2019-01-29 20:09] LABS: PROTHROMBIN TIME PATIENT 13.8 SEC (11.7-14.0)
[2019-01-29] MEDS ORDERED: IV DEXTROSE 5% 250 ML BAG. IV PRN (20:15)
[2019-01-29] MEDS ORDERED: DEXTROSE 50% 25 GM / 50ML DISP.SYRIN. IV PRN (20:15)
[2019-01-29] MEDS ORDERED: guaiFENesin DM 200MG/20MG 10 ML SYRUP PO PRN (20:15)
[2019-01-29] MEDS ORDERED: ACETAMINOPHEN/CODEINE 300/30MG TABLET. PO PRN (20:15)
[2019-01-29] MEDS ORDERED: ONDANSETRON PF 4 MG/2 ML VIAL. IV PRN ×2 (20:15→21:00)
[2019-01-29] MEDS ORDERED: ZOLPIDEM 5 MG TABLET. PO PRN (20:15)
[2019-01-29] MEDS ORDERED: cloNIDine HCL 0.1 MG TABLET PO PRN (20:15)
[2019-01-29 20:19] LABS: CALCIUM 8.1 mg/dL (8.5-10.1); CREATININE 2.5 mg/dL (0.7-1.3); GFR 25.1; POTASSIUM 4.1 mmol/L (3.5-5.1)
[2019-01-29 20:25] LABS: ALBUMIN 2.5 g/dL (3.4-5.0); ALBUMIN/GLOBULIN RATIO 0.8 (1.0-1.7); MAGNESIUM 1.8 mg/dL (1.8-2.4); TOTAL BILIRUBIN 0.3 mg/dL (0.2-1.0); TOTAL PROTEIN 5.7 g/dL (6.4-8.2)
--- NOTE | 2019-01-29 20:44 | RAD ---
Exam: Chest one view INDICATION: Shortness of breath TECHNIQUE: Frontal view of the chest Comparisons: 10/19/2018 FINDINGS: Heart is enlarged. Pulmonary vessels are within normal limits. Hazy opacities lung bases bilaterally. [id number] bilateral pleural effusions. IMPRESSION: Small to moderate bilateral pleural effusions with adjacent airspace disease, likely atelectasis. Superimposed infectious process is difficult to exclude. Electronically signed by: Scooter Mario MD (01/29/2019 8:41 PM) [facility]
[2019-01-29] MEDS ORDERED: FUROSEMIDE 100 MG/10 ML VIAL. IVP ONE (21:00)
[2019-01-29] MEDS ORDERED: ACETAMINOPHEN 325 MG TABLET. PO PRN (21:00)
[2019-01-29] MEDS ORDERED: NITROGLYCERIN PREMIX 250 ML IV ONE (21:00)
[2019-01-29] MEDS ORDERED: FUROSEMIDE 40 MG/4 ML VIAL. IVP ONE (21:00)
[2019-01-29] MEDS ORDERED: LABETALOL 20 MG/4 ML DISP.SYRIN. IVP PRN (21:00)
--- NOTE | 2019-01-29 21:01 | PDOC1 ---
History and Physical Date of Admission Date of Admission DATE: 01/29/19 TIME: 20:48 Identification/Chief Complaint Chief Complaint soa, low sats to 60s Source Source: Caregiver, Chart review, Patient History of Present Illness History of Present Illness Known to me from my LTAC care for him few mos back, SOA, 60s sats on arrival, HArd to see JVD bec DEE DEE and malampati 4, LEgs puffy, CXR edema, SBP 200s, BNP elevated, satting now 92% on 5 LNC - systolic 200s, no sxs HE can be opinionated about his care, denies chest pain. HE has CKD, and known pt of our cards group and has an appt feb 21, supposedly planned for OP lHC when he was here october 2018 for nstemi but kidney fcn precluded that ischemic work up. AT ltac,. he was very interested in pursing LHC, Past Medical History Cardiovascular: AFIB, CAD, HTN, DC, Hyperlipidemia GI: Diverticulosis Renal/: Chronic renal failure, Benign prostatic enlarg. Endocrine: Diabetes Past Surgical History Past Surgical History: Arthroscopy, Cholecystectomy, Tonsillectomy, Other Family History Family History: Hypertension Social History Smoke: No ALCOHOL: none Drugs: None Current Medications Current Medications Current Medications Albuterol/ Ipratropium (Duoneb) 3 ml 1X ONCE NEB Last administered on 01/29/19at 20:09; Start 01/29/19 at 19:45; Stop 01/29/19 at 19:46; Status DC Methylprednisolone Sodium Succinate (SOLU-Medrol 125MG VIAL) 125 mg 1X ONCE IV Last administered on 01/29/19at 20:02; Start 01/29/19 at 19:45; Stop 01/29/19 at 19:46; Status DC Hydralazine HCl (Apresoline Inj) 10 mg 1X ONCE IVP Last administered on 01/29/19at 20:02; Start 01/29/19 at 20:00; Stop 01/29/19 at 20:01; Status DC Amlodipine Besylate (Norvasc) 5 mg DAILY PO ; Start 01/30/19 at 09:00 Aspirin (Angeli Aspirin) 325 mg DAILY PO ; Start 01/30/19 at 09:00 Atorvastatin Calcium (Lipitor) 40 mg QHS PO ; Start 01/29/19 at 21:00 Insulin Glargine (Lantus) 35 units DAILY SQ ; Start 01/30/19 at 09:00 Lisinopril (Prinivil) 40 mg DAILY PO ; Start 01/30/19 at 09:00 Metoprolol Tartrate (Lopressor) 25 mg DAILY PO ; Start 01/30/19 at 09:00 Metoprolol Tartrate (Lopressor) 12.5 mg QHS PO ; Start 01/29/19 at 21:00 Vitamin D (Vitamin D3) 5,000 unit DAILY PO ; Start 01/30/19 at 09:00 Non-Formulary Medication (Patiromer Calcium Sorbitex (Veltassa)) 8.4 gm DAILY PO ; Start 01/30/19 at 09:00; Status UNV Fish Oil (Fish Oil) 1,000 mg DAILY PO ; Start 01/30/19 at 09:00 Insulin Human Lispro (HumaLOG) 0-9 UNITS TIDWMEALS SQ ; Start 01/30/19 at 08:00 Dextrose (Dextrose 50%-Water Syringe) 12.5 gm PRN Q15MIN PRN IV SEE COMMENTS; Start 01/29/19 at 20:15 Dextrose 250 ml PRN Q15MIN PRN IV SEE COMMENTS; Start 01/29/19 at 20:15 Albuterol/ Ipratropium (Duoneb) 3 ml RTQID NEB ; Start 01/30/19 at 08:00 Acetaminophen/ Codeine Phosphate (Tylenol #3) 1 tab PRN Q6HRS PRN PO PAIN; Start 01/29/19 at 20:15 Guaifenesin (Robitussin Dm) 10 ml PRN Q6HRS PRN PO COUGH; Start 01/29/19 at 20:15 Zolpidem Tartrate (Ambien) 2.5 mg PRN QHS PRN PO INSOMNIA; Start 01/29/19 at 20:15 Ondansetron HCl (Zofran) 4 mg PRN Q6HRS PRN IV NAUSEA/VOMITING; Start 01/29/19 at 20:15 Clonidine HCl (Catapres) 0.1 mg PRN Q1HR PRN PO HYPERTENSION; Start 01/29/19 at 20:15 Hydralazine HCl (Apresoline Inj) 10 mg PRN Q4HRS PRN IVP ELEVATED BP, SEE COMMENTS; Start 01/29/19 at 20:15 Active Scripts Active Reported Metoprolol Tartrate 25 Mg Tablet 12.5 Mg PO QHS Fish Oil 1,000 mg Softgel (Rea-3S/Dha/Epa/Fish Oil) 1 Each Capsule 1 Each PO Veltassa (Patiromer Calcium Sorbitex) 8.4 Gm Powd.pack 8.4 Gm PO DAILY Vitamin D-3 (Cholecalciferol (Vitamin D3)) 2,000 Unit Tablet 5,000 Unit PO DAILY Aspirin 325 Mg Tablet 1 Tab PO DAILY Amlodipine Besylate 5 Mg Tablet 5 Mg PO DAILY Metoprolol Tartrate 25 Mg Tablet 1 Tab PO DAILY Atorvastatin Calcium 40 Mg Tablet 1 Tab PO QHS Basaglar Kwikpen U-100 (Insulin Glargine,Hum.rec.anlog) 100 Unit/1 Ml Insuln.pen 35 Unit SQ DAILY Lisinopril 20 Mg Tablet 40 Mg PO DAILY Allergies Allergies: Coded Allergies: No Known Drug Allergies (Unverified , 06/03/13) ROS Review of System soa, leg edema, fatigued, soa on exertion, no cp, no fevers, no abd issues Physical Exam General: Alert, Oriented X3, Cooperative, No acute distress HEENT: Atraumatic, PERRLA, EOMI, Mucous membr. moist/pink Lungs: Normal air movement, Other (SCE, crackles, diminhsed bec of inc AP diam but no wheezing) Heart: S1S2, RRR, no thrills, no rubs, no gallops, no murmurs Cardiovascular: S1, S2 Abdomen: Normal bowel sounds, Soft, No tenderness, No hepatosplenomegaly, No masses PELVIC: Nml ext genitalia Extremities: No cyanosis, Normal pulses, Other (plus 3 pitting edema) Skin: No rashes, No breakdown, No significant lesion Neuro: Normal gait, Normal speech, Strength at 5/5 X4 ext, Normal tone, Sensation intact, Cranial nerves 3-12 NL, Reflexes 2+ Psych/Mental Status: Mental status NL, Mood NL Vitals Vitals Vital Signs Date Time Temp Pulse Resp B/P (MAP) Pulse Ox O2 Delivery O2 Flow Rate FiO2 01/29/19 20:11 94 Nasal Cannula 4.0 01/29/19 20:02 79 205/93 01/29/19 19:15 98.3 22 98.3 Labs Labs Laboratory Tests Test 01/29/19 19:50 White Blood Count 8.7 x10^3/uL (4.0-11.0) Red Blood Count 3.93 x10^6/uL (4.30-5.70) Hemoglobin 11.2 g/dL (13.0-17.5) Hematocrit 33.3 % (39.0-53.0) Mean Corpuscular Volume 85 fL (79-100) Mean Corpuscular Hemoglobin 28 pg (25-35) Mean Corpuscular Hemoglobin Concent 34 g/dL (31-37) Red Cell Distribution Width 14.7 % (11.5-14.5) Platelet Count 285 x10^3/uL (140-400) Neutrophils (%) (Auto) 71 % (31-73) Lymphocytes (%) (Auto) 18 % (24-48) Monocytes (%) (Auto) 9 % (0-9) Eosinophils (%) (Auto) 1 % (0-3) Basophils (%) (Auto) 1 % (0-3) Neutrophils # (Auto) 6.2 x10^3/uL (1.8-7.7) Lymphocytes # (Auto) 1.5 x10^3/uL (1.0-4.8) Monocytes # (Auto) 0.8 x10^3/uL (0.0-1.1) Eosinophils # (Auto) 0.1 x10^3/uL (0.0-0.7) Basophils # (Auto) 0.1 x10^3/uL (0.0-0.2) Prothrombin Time 13.8 SEC (11.7-14.0) Prothromb Time International Ratio 1.1 (0.8-1.1) Activated Partial Thromboplast Time 31 SEC (24-38) D-Dimer (Rashmi) 0.86 ug/mlFEU (0.00-0.50) Sodium Level 144 mmol/L (136-145) Potassium Level 4.1 mmol/L (3.5-5.1) Chloride Level 107 mmol/L (98-107) Carbon Dioxide Level 30 mmol/L (21-32) Anion Gap 7 (6-14) Blood Urea Nitrogen 46 mg/dL (8-26) Creatinine 2.5 mg/dL (0.7-1.3) Estimated GFR (Cockcroft-Gault) 25.1 BUN/Creatinine Ratio 18 (6-20) Glucose Level 117 mg/dL (70-99) Lactic Acid Level 0.9 mmol/L (0.4-2.0) Calcium Level 8.1 mg/dL (8.5-10.1) Magnesium Level 1.8 mg/dL (1.8-2.4) Total Bilirubin 0.3 mg/dL (0.2-1.0) Aspartate Amino Transf (AST/SGOT) 19 U/L (15-37) Alanine Aminotransferase (ALT/SGPT) 21 U/L (16-63) Alkaline Phosphatase 71 U/L (46-116) Creatine Kinase 84 U/L (39-308) Creatine Kinase MB (Mass) 1.2 ng/mL (0.0-3.6) Creatine Kinase MB Relative Index 1.4 % (0-4) Troponin I Quantitative 0.410 ng/mL (0.000-0.055) HM-Ehr-G-Type Natriuretic Peptide 15912 pg/mL (0-449) Total Protein 5.7 g/dL (6.4-8.2) Albumin 2.5 g/dL (3.4-5.0) Albumin/Globulin Ratio 0.8 (1.0-1.7) Procalcitonin 0.27 ng/mL (0.00-0.10) Thyroid Stimulating Hormone (TSH) 2.149 uIU/mL (0.358-3.74) Laboratory Tests Test 01/29/19 19:50 White Blood Count 8.7 x10^3/uL (4.0-11.0) Red Blood Count 3.93 x10^6/uL (4.30-5.70) Hemoglobin 11.2 g/dL (13.0-17.5) Hematocrit 33.3 % (39.0-53.0) Mean Corpuscular Volume 85 fL (79-100) Mean Corpuscular Hemoglobin 28 pg (25-35) Mean Corpuscular Hemoglobin Concent 34 g/dL (31-37) Red Cell Distribution Width 14.7 % (11.5-14.5) Platelet Count 285 x10^3/uL (140-400) Neutrophils (%) (Auto) 71 % (31-73) Lymphocytes (%) (Auto) 18 % (24-48) Monocytes (%) (Auto) 9 % (0-9) Eosinophils (%) (Auto) 1 % (0-3) Basophils (%) (Auto) 1 % (0-3) Neutrophils # (Auto) 6.2 x10^3/uL (1.8-7.7) Lymphocytes # (Auto) 1.5 x10^3/uL (1.0-4.8) Monocytes # (Auto) 0.8 x10^3/uL (0.0-1.1) Eosinophils # (Auto) 0.1 x10^3/uL (0.0-0.7) Basophils # (Auto) 0.1 x10^3/uL (0.0-0.2) Prothrombin Time 13.8 SEC (11.7-14.0) Prothromb Time International Ratio 1.1 (0.8-1.1) Activated Partial Thromboplast Time 31 SEC (24-38) D-Dimer (Rashmi) 0.86 ug/mlFEU (0.00-0.50) Sodium Level 144 mmol/L (136-145) Potassium Level 4.1 mmol/L (3.5-5.1) Chloride Level 107 mmol/L (98-107) Carbon Dioxide Level 30 mmol/L (21-32) Anion Gap 7 (6-14) Blood Urea Nitrogen 46 mg/dL (8-26) Creatinine 2.5 mg/dL (0.7-1.3) Estimated GFR (Cockcroft-Gault) 25.1 BUN/Creatinine Ratio 18 (6-20) Glucose Level 117 mg/dL (70-99) Lactic Acid Level 0.9 mmol/L (0.4-2.0) Calcium Level 8.1 mg/dL (8.5-10.1) Magnesium Level 1.8 mg/dL (1.8-2.4) Total Bilirubin 0.3 mg/dL (0.2-1.0) Aspartate Amino Transf (AST/SGOT) 19 U/L (15-37) Alanine Aminotransferase (ALT/SGPT) 21 U/L (16-63) Alkaline Phosphatase 71 U/L (46-116) Creatine Kinase 84 U/L (39-308) Creatine Kinase MB (Mass) 1.2 ng/mL (0.0-3.6) Creatine Kinase MB Relative Index 1.4 % (0-4) Troponin I Quantitative 0.410 ng/mL (0.000-0.055) IK-Kqv-H-Type Natriuretic Peptide 72783 pg/mL (0-449) Total Protein 5.7 g/dL (6.4-8.2) Albumin 2.5 g/dL (3.4-5.0) Albumin/Globulin Ratio 0.8 (1.0-1.7) Procalcitonin 0.27 ng/mL (0.00-0.10) Thyroid Stimulating Hormone (TSH) 2.149 uIU/mL (0.358-3.74) VTE Prophylaxis Ordered VTE Prophylaxis Devices: Yes VTE Pharmacological Prophylaxi: Yes Assessment/Plan Assessment/Plan 1. CHF, leg edema - 2. Hypoxic respi failure - sats 60s on arrival, now 92% at 5 LNC, lasix 60 x 1, some effusion on CXR, BIPAP might even be in order if this persists - pulmo and cards consulted 2,. Recent nSTEMi October 2018 - planned for LHC as OP? but CKD precluded ischemic work up; has appt feb 21, was very interest in LHC when I took care of him in LTAC 3. 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 Obesity BMI 41 5. HTN emergency - Systolic 200s on arrival 6. CAD, a fib chronic stable PLAn: As above CVC beds The 3 consults 2 [place] Full code Seen at ER HOme emds have been reconciled DEVORAH EUBANKS MD Jan 29, 2019 21:01
--- NOTE | 2019-01-29 21:32 | PHYS DOC ---
Past Medical History Past Medical History: Diabetes-Type II, High Cholesterol, Hypertension, ND, Renal Failure Past Surgical History: Cholecystectomy, Tonsillectomy Additional Past Surgical Histo: CARDIAC STENT, EYE SX, BONE SPUR L SHOULDER Alcohol Use: None Drug Use: None Adult General Chief Complaint Chief Complaint: SHORTNESS OF BREATH HPI HPI Patient is a 78 year old male with history of diabetes type 2, hypertension, high cholesterol, NSTEMI 4 months ago, former smoker, who presents to the ED today complaining of a cough that began one week ago and shortness of breath that began yesterday. Patient is a bit of a poor historian, is not available right now, patient states his oxygen saturation at home was in the 60s today and the PCP requested him to come to the ED to be evaluated. Patient denies any chest pain. Patient arrives in the ED with with oxygen saturations in the 70s, was placed on oxygen 4 L, saturations went up to 94. Review of Systems Review of Systems Constitutional: Denies fever or chills [] Eyes: Denies change in visual acuity, redness, or eye pain [] HENT: Denies nasal congestion or sore throat [] Respiratory: Reports cough and shortness of breath Cardiovascular: No additional information not addressed in HPI [] GI: Denies abdominal pain, nausea, vomiting, bloody stools or diarrhea [] : Denies dysuria or hematuria [] Musculoskeletal: Denies back pain or joint pain [] Integument: Denies rash or skin lesions [] Neurologic: Denies headache, focal weakness or sensory changes [] All other systems were reviewed and found to be within normal limits, except as documented in this note. Current Medications Current Medications Current Medications Medications (Trade) Dose Ordered Sig/[place] Start Time Stop Time Status Last Admin Dose Admin Albuterol/ Ipratropium (Duoneb) 3 ml 1X ONCE 01/29/19 19:45 01/29/19 19:46 DC 01/29/19 20:09 3 ML Hydralazine HCl (Apresoline Inj) 10 mg 1X ONCE 01/29/19 20:00 01/29/19 20:01 DC 01/29/19 20:02 10 MG Methylprednisolone Sodium Succinate (SOLU-Medrol 125MG VIAL) 125 mg 1X ONCE 01/29/19 19:45 01/29/19 19:46 DC 01/29/19 20:02 125 MG Allergies Allergies Allergies Coded Allergies Type Severity Reaction Last Updated Verified No Known Drug Allergies 06/03/13 No Physical Exam Physical Exam Constitutional: Obese patient, well nourished, no acute distress, non-toxic appearance. [] HENT: Normocephalic, atraumatic, bilateral external ears normal, oropharynx moist, no oral exudates, nose normal. [] Eyes: PERRLA, EOMI, conjunctiva normal, no discharge. [] Neck: Normal range of motion, no tenderness, supple, no stridor. [] Cardiovascular:Heart rate regular rhythm, no murmur [] Lungs & Thorax: Patient appears short of breath. Abdomen: Bowel sounds normal, soft, no tenderness, no masses, no pulsatile masses. [] Skin: Warm, dry, no erythema, no rash. [] Back: No tenderness, no CVA tenderness. [] Extremities: No tenderness, no cyanosis, no clubbing, ROM intact, no edema. [] Neurologic: Alert and oriented X 3, normal motor function, normal sensory function, no focal deficits noted. [] Psychologic: Affect normal, judgement normal, mood normal. [] Current Patient Data Vital Signs Vital Signs Date Time Temp Pulse Resp B/P (MAP) Pulse Ox O2 Delivery O2 Flow Rate FiO2 01/29/19 19:55 78 20 205/93 (130) 95 Nasal Cannula 4.0 01/29/19 19:15 98.3 98.3 Lab Values Laboratory Tests Test 01/29/19 19:50 White Blood Count 8.7 x10^3/uL (4.0-11.0) Red Blood Count 3.93 x10^6/uL (4.30-5.70) L Hemoglobin 11.2 g/dL (13.0-17.5) L Hematocrit 33.3 % (39.0-53.0) L Mean Corpuscular Volume 85 fL (79-100) Mean Corpuscular Hemoglobin 28 pg (25-35) Mean Corpuscular Hemoglobin Concent 34 g/dL (31-37) Red Cell Distribution Width 14.7 % (11.5-14.5) H Platelet Count 285 x10^3/uL (140-400) Neutrophils (%) (Auto) 71 % (31-73) Lymphocytes (%) (Auto) 18 % (24-48) L Monocytes (%) (Auto) 9 % (0-9) Eosinophils (%) (Auto) 1 % (0-3) Basophils (%) (Auto) 1 % (0-3) Neutrophils # (Auto) 6.2 x10^3/uL (1.8-7.7) Lymphocytes # (Auto) 1.5 x10^3/uL (1.0-4.8) Monocytes # (Auto) 0.8 x10^3/uL (0.0-1.1) Eosinophils # (Auto) 0.1 x10^3/uL (0.0-0.7) Basophils # (Auto) 0.1 x10^3/uL (0.0-0.2) Prothrombin Time 13.8 SEC (11.7-14.0) Prothrombin Time INR 1.1 (0.8-1.1) Activated Partial Thromboplast Time 31 SEC (24-38) D-Dimer (Rashmi) 0.86 ug/mlFEU (0.00-0.50) H Sodium Level 144 mmol/L (136-145) Potassium Level 4.1 mmol/L (3.5-5.1) Chloride Level 107 mmol/L (98-107) Carbon Dioxide Level 30 mmol/L (21-32) Anion Gap 7 (6-14) Blood Urea Nitrogen 46 mg/dL (8-26) H Creatinine 2.5 mg/dL (0.7-1.3) H Estimated GFR (Cockcroft-Gault) 25.1 BUN/Creatinine Ratio 18 (6-20) Glucose Level 117 mg/dL (70-99) H Lactic Acid Level 0.9 mmol/L (0.4-2.0) Calcium Level 8.1 mg/dL (8.5-10.1) L Magnesium Level 1.8 mg/dL (1.8-2.4) Total Bilirubin 0.3 mg/dL (0.2-1.0) Aspartate Amino Transferase (AST) 19 U/L (15-37) Alanine Aminotransferase (ALT) 21 U/L (16-63) Alkaline Phosphatase 71 U/L (46-116) Creatine Kinase 84 U/L (39-308) Creatine Kinase MB (Mass) 1.2 ng/mL (0.0-3.6) Creatine Kinase MB Relative Index 1.4 % (0-4) Troponin I Quantitative 0.410 ng/mL (0.000-0.055) PB-Rfo-W-Type Natriuretic Peptide 68190 pg/mL (0-449) H Total Protein 5.7 g/dL (6.4-8.2) L Albumin 2.5 g/dL (3.4-5.0) L Albumin/Globulin Ratio 0.8 (1.0-1.7) L Procalcitonin 0.27 ng/mL (0.00-0.10) H Thyroid Stimulating Hormone (TSH) 2.149 uIU/mL (0.358-3.74) Laboratory Tests 01/29/19 19:50 Laboratory Tests 01/29/19 19:50 EKG EKG [address] Wilkins sinus rhythm HR 77 no STEMI[] Radiology/Procedures Radiology/Procedures []PROCEDURE: PORTABLE CHEST 1V Exam: Chest one view INDICATION: Shortness of breath TECHNIQUE: Frontal view of the chest Comparisons: 10/19/2018 FINDINGS: Heart is enlarged. Pulmonary vessels are within normal limits. Hazy opacities lung bases bilaterally. [id number] bilateral pleural effusions. IMPRESSION: Small to moderate bilateral pleural effusions with adjacent airspace disease, likely atelectasis. Superimposed infectious process is difficult to exclude. Electronically signed by: Scooter Glass MD (01/29/2019 8:41 PM) [facility] DICTATED and SIGNED BY: SCOOTER GLASS MD DATE: 01/29/192040 Course & Med Decision Making Course & Med Decision Making Pertinent Labs and Imaging studies reviewed. (See chart for details) This is a 78-year-old patient who presents to the ED today with shortness of breath that began yesterday. Patient arrives in the ED with O2 sats of 70% on room air. Was put on 4 L of oxygen, patient's O2 sats went up to 94%. Temperature was 98.1, respiration 20, blood pressure 157/80, heart rate in the 80s. Consulted with who accepted patient for admission. CBC with a normal WBC, CMP with creatinine of 2.5 this is around his baseline, BUN 46, BNP 15,236. Chest x-ray noted for small to moderate bilateral pleural effusions with adjacent airspace disease likely atelectasis. Superimposed infectious process was difficult to rule out. Dr. Crawley ordered lasiks. Routine consults placed for pulmonary, nephrology and cardiology Katheryn Disclaimer Dragon Disclaimer This electronic medical record was generated, in whole or in part, using a voice recognition dictation system. Departure Departure Impression: Primary Impression: Respiratory failure Additional Impressions: Chronic kidney disease Elevated troponin Disposition: ADMITTED INPATIENT Condition: STABLE Referrals: JONE BETTENCOURT MD (PCP) Problem Qualifiers Primary Impression: Respiratory failure Chronicity: acute Respiratory failure complication: hypoxia Qualified Codes: J96.01 - Acute respiratory failure with hypoxia Additional Impressions: Chronic kidney disease Chronic kidney disease stage: unspecified stage Qualified Codes: N18.9 - Chronic kidney disease, unspecified JOSE CUNNINGHAM CURRICULUM DIRECTOR Jan 29, 2019 21:32
[2019-01-29 21:50] VITALS: BP 205/86
--- NOTE | 2019-01-29 22:00 | NUR ---
Pt arrived to room 204 per cart Pt assisted to bed with standby assist,vss assessment completed pt a poor historian will continue to monitor pt call light placed in reach.
[2019-01-29] MEDS: ATORVASTATIN CALCIUM 40 MG TABLET. PO SCH (22:23)
[2019-01-29 22:24] LABS: BARBITURATES NEG (NEG); BENZODIAZEPINES NEG (NEG); CANNABINOIDS NEG (NEG); COCAINE NEG (NEG); METHADONE NEG (NEG); OPIATES NEG (NEG); PHENCYCLIDINE NEG (NEG)
[2019-01-29] MEDS: METOPROLOL TART IMMED RELEASE 25 MG TABLET. PO SCH (22:24)
[2019-01-29 22:25] LABS: AMPHETAMINE/METHAMPHETAMINE NEG (NEG)
[2019-01-29 23:05] VITALS: BP 204/86
[2019-01-30] VITALS (10 sets, daily range): BP systolic 139–190; BP diastolic 62–89
--- NOTE | 2019-01-30 05:51 | EKG ---
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
[2019-01-30] MEDS: IPRATRPIUM/ALBUTEROL 0.5/2.5MG 3 ML NEBU. NEB SCH ×4 (07:28→20:16)
[2019-01-30 07:59] LABS: BASO % 0 % (0-3); EOS % 0 % (0-3); HEMATOCRIT 32.2 % (39.0-53.0); HEMOGLOBIN 10.8 g/dL (13.0-17.5); LYMPH # 0.3 x10^3/uL (1.0-4.8); LYMPH % 9 % (24-48); MEAN CORPUSCULAR HEMOGLOBIN 28 pg (25-35); MEAN CORPUSCULAR HGB CONC 34 g/dL (31-37); MEAN CORPUSCULAR VOLUME 84 fL (79-100); MONO # 0.1 x10^3/uL (0.0-1.1); MONO % 2 % (0-9); NEUT % 89 % (31-73); PLATELET COUNT 257 x10^3/uL (140-400); RED BLOOD COUNT 3.83 x10^6/uL (4.30-5.70); RED CELL DISTRIBUTION WIDTH 14.7 % (11.5-14.5); WHITE BLOOD COUNT 3.3 x10^3/uL (4.0-11.0)
[2019-01-30] MEDS ORDERED: ASPIRIN 325 MG TABLET PO SCH (09:00)
[2019-01-30] MEDS: NON FORMULARY ITEM (Patiromer Calcium Sorbitex (Veltassa) 8.4 GM) PO SCH (09:00)
[2019-01-30] MEDS ORDERED: INSULIN GLARGINE 300 UNITS/3 ML INSULN.PEN. SQ SCH (09:00)
[2019-01-30] MEDS ORDERED: OMEGA-3 FATTY ACIDS/FISH OIL 1,000 MG CAPSULE. PO SCH (09:00)
[2019-01-30] MEDS ORDERED: amLODIPine BESYLATE 5 MG TABLET PO SCH (09:00)
[2019-01-30] MEDS ORDERED: CHOLECALCIFEROL (VITAMIN D3) 5,000 UNIT CAPSULE PO SCH (09:00)
[2019-01-30] MEDS: INSULIN LISPRO 300 UNITS/3 ML VIAL. SQ SCH ×3 (09:33→17:00)
[2019-01-30 09:52] LABS: % BANDS 4 % (0-9); % LYMPHS 5 % (24-48); % MONOS 1 % (0-10); % SEGS 90 % (35-66); ANISOCYTOSIS SLIGHT; PLT ESTIMATE ADEQUATE (ADEQUATE)
[2019-01-30] MEDS ORDERED: ASPI-630 PO (10:23)
[2019-01-30] MEDS ORDERED: ISOS30TA4 PO (10:23)
[2019-01-30] MEDS ORDERED: TAMS0.4C97 PO (10:23)
--- NOTE | 2019-01-30 10:26 | PDOC ---
PROGRESS NOTES Chief Complaint Chief Complaint 1. CHF, leg edema - 2. Hypoxic respi failure - sats 60s on arrival,ed 2,. Recent nSTEMi October 2018 - 3. 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 Obesity BMI 41 5. HTN emergency - Systolic 200s on arrival 6. CAD, a fib chronic stable History of Present Illness History of Present Illness NOt the best personality to deal with CREat 2.5 which i think is around his baseline BP better (Was systolic 200s on arrival) Otherwise he has no complaints HE has appt cards OP sept? PLAN: DID get lasix for leg edema and small to mod bilateral pl effusion with high BNP And CXR congestion PT/OT Ful code Avoid nephrotoxins if able Renal and cards consulted WOF: further hyptertensive episodes Dw at bedside Home emds, reviewed dw RN gem Vitals Vitals Vital Signs Date Time Temp Pulse Resp B/P (MAP) Pulse Ox O2 Delivery O2 Flow Rate FiO2 01/30/19 07:28 96 Nasal Cannula 4.0 01/30/19 07:00 97.1 88 20 187/84 (118) 97.1 Physical Exam General: Alert, Oriented X3, Cooperative, No acute distress Lungs: Clear Abdomen: Normal bowel sounds, Soft, No tenderness, No hepatosplenomegaly, No masses Extremities: No cyanosis, Normal pulses, Other (plus 3 pitting edema) Skin: No rashes, No breakdown, No significant lesion Labs LABS Laboratory Tests Test 01/29/19 19:50 01/29/19 22:11 01/30/19 01:20 01/30/19 07:20 White Blood Count 8.7 x10^3/uL (4.0-11.0) 3.3 x10^3/uL (4.0-11.0) Red Blood Count 3.93 x10^6/uL (4.30-5.70) 3.83 x10^6/uL (4.30-5.70) Hemoglobin 11.2 g/dL (13.0-17.5) 10.8 g/dL (13.0-17.5) Hematocrit 33.3 % (39.0-53.0) 32.2 % (39.0-53.0) Mean Corpuscular Volume 85 fL (79-100) 84 fL (79-100) Mean Corpuscular Hemoglobin 28 pg (25-35) 28 pg (25-35) Mean Corpuscular Hemoglobin Concent 34 g/dL (31-37) 34 g/dL (31-37) Red Cell Distribution Width 14.7 % (11.5-14.5) 14.7 % (11.5-14.5) Platelet Count 285 x10^3/uL (140-400) 257 x10^3/uL (140-400) Neutrophils (%) (Auto) 71 % (31-73) 89 % (31-73) Lymphocytes (%) (Auto) 18 % (24-48) 9 % (24-48) Monocytes (%) (Auto) 9 % (0-9) 2 % (0-9) Eosinophils (%) (Auto) 1 % (0-3) 0 % (0-3) Basophils (%) (Auto) 1 % (0-3) 0 % (0-3) Neutrophils # (Auto) 6.2 x10^3/uL (1.8-7.7) 3.0 x10^3/uL (1.8-7.7) Lymphocytes # (Auto) 1.5 x10^3/uL (1.0-4.8) 0.3 x10^3/uL (1.0-4.8) Monocytes # (Auto) 0.8 x10^3/uL (0.0-1.1) 0.1 x10^3/uL (0.0-1.1) Eosinophils # (Auto) 0.1 x10^3/uL (0.0-0.7) 0.0 x10^3/uL (0.0-0.7) Basophils # (Auto) 0.1 x10^3/uL (0.0-0.2) 0.0 x10^3/uL (0.0-0.2) Prothrombin Time 13.8 SEC (11.7-14.0) Prothromb Time International Ratio 1.1 (0.8-1.1) Activated Partial Thromboplast Time 31 SEC (24-38) D-Dimer (Rashmi) 0.86 ug/mlFEU (0.00-0.50) Sodium Level 144 mmol/L (136-145) Potassium Level 4.1 mmol/L (3.5-5.1) Chloride Level 107 mmol/L (98-107) Carbon Dioxide Level 30 mmol/L (21-32) Anion Gap 7 (6-14) Blood Urea Nitrogen 46 mg/dL (8-26) Creatinine 2.5 mg/dL (0.7-1.3) Estimated GFR (Cockcroft-Gault) 25.1 BUN/Creatinine Ratio 18 (6-20) Glucose Level 117 mg/dL (70-99) Lactic Acid Level 0.9 mmol/L (0.4-2.0) Calcium Level 8.1 mg/dL (8.5-10.1) Magnesium Level 1.8 mg/dL (1.8-2.4) Total Bilirubin 0.3 mg/dL (0.2-1.0) Aspartate Amino Transf (AST/SGOT) 19 U/L (15-37) Alanine Aminotransferase (ALT/SGPT) 21 U/L (16-63) Alkaline Phosphatase 71 U/L (46-116) Creatine Kinase 84 U/L (39-308) Creatine Kinase MB (Mass) 1.2 ng/mL (0.0-3.6) Creatine Kinase MB Relative Index 1.4 % (0-4) Troponin I Quantitative 0.410 ng/mL (0.000-0.055) 0.278 ng/mL (0.000-0.055) 0.190 ng/mL (0.000-0.055) IR-Tow-O-Type Natriuretic Peptide 66346 pg/mL (0-449) Total Protein 5.7 g/dL (6.4-8.2) Albumin 2.5 g/dL (3.4-5.0) Albumin/Globulin Ratio 0.8 (1.0-1.7) Procalcitonin 0.27 ng/mL (0.00-0.10) Thyroid Stimulating Hormone (TSH) 2.149 uIU/mL (0.358-3.74) Urine Opiates Screen Neg (NEG) Urine Methadone Screen Neg (NEG) Urine Barbiturates Neg (NEG) Urine Phencyclidine Screen Neg (NEG) Urine Amphetamine/Methamphetamine Neg (NEG) Urine Benzodiazepines Screen Neg (NEG) Urine Cocaine Screen Neg (NEG) Urine Cannabinoids Screen Neg (NEG) Urine Ethyl Alcohol Neg (NEG) Segmented Neutrophils % 90 % (35-66) Band Neutrophils % 4 % (0-9) Lymphocytes % 5 % (24-48) Monocytes % 1 % (0-10) Platelet Estimate Adequate (ADEQUATE) Large Platelets Few Anisocytosis Slight Test 01/30/19 08:09 Glucose (Fingerstick) 282 mg/dL (70-99) Review of Systems Review of Systems no cp, no soa,no cough, no fevers, no abd pain, positive leg edema, weak on ambulation Assessment and Plan Assessmemt and Plan Problems Medical Problems: (1) A-fib Status: Chronic (2) CAD (coronary artery disease) Status: Chronic (3) CHF (congestive heart failure) Status: Chronic (4) Chronic kidney disease Status: Acute (5) Elevated troponin Status: Acute (6) Obesity Status: Chronic (7) Respiratory failure Status: Acute Comment Review of Relevant I have reviewed the following items kristin (where applicable) has been applied. Labs Laboratory Tests Test 01/29/19 19:50 01/29/19 22:11 01/30/19 01:20 01/30/19 07:20 White Blood Count 8.7 x10^3/uL (4.0-11.0) 3.3 x10^3/uL (4.0-11.0) Red Blood Count 3.93 x10^6/uL (4.30-5.70) 3.83 x10^6/uL (4.30-5.70) Hemoglobin 11.2 g/dL (13.0-17.5) 10.8 g/dL (13.0-17.5) Hematocrit 33.3 % (39.0-53.0) 32.2 % (39.0-53.0) Mean Corpuscular Volume 85 fL (79-100) 84 fL (79-100) Mean Corpuscular Hemoglobin 28 pg (25-35) 28 pg (25-35) Mean Corpuscular Hemoglobin Concent 34 g/dL (31-37) 34 g/dL (31-37) Red Cell Distribution Width 14.7 % (11.5-14.5) 14.7 % (11.5-14.5) Platelet Count 285 x10^3/uL (140-400) 257 x10^3/uL (140-400) Neutrophils (%) (Auto) 71 % (31-73) 89 % (31-73) Lymphocytes (%) (Auto) 18 % (24-48) 9 % (24-48) Monocytes (%) (Auto) 9 % (0-9) 2 % (0-9) Eosinophils (%) (Auto) 1 % (0-3) 0 % (0-3) Basophils (%) (Auto) 1 % (0-3) 0 % (0-3) Neutrophils # (Auto) 6.2 x10^3/uL (1.8-7.7) 3.0 x10^3/uL (1.8-7.7) Lymphocytes # (Auto) 1.5 x10^3/uL (1.0-4.8) 0.3 x10^3/uL (1.0-4.8) Monocytes # (Auto) 0.8 x10^3/uL (0.0-1.1) 0.1 x10^3/uL (0.0-1.1) Eosinophils # (Auto) 0.1 x10^3/uL (0.0-0.7) 0.0 x10^3/uL (0.0-0.7) Basophils # (Auto) 0.1 x10^3/uL (0.0-0.2) 0.0 x10^3/uL (0.0-0.2) Prothrombin Time 13.8 SEC (11.7-14.0) Prothromb Time International Ratio 1.1 (0.8-1.1) Activated Partial Thromboplast Time 31 SEC (24-38) D-Dimer (Rashmi) 0.86 ug/mlFEU (0.00-0.50) Sodium Level 144 mmol/L (136-145) Potassium Level 4.1 mmol/L (3.5-5.1) Chloride Level 107 mmol/L (98-107) Carbon Dioxide Level 30 mmol/L (21-32) Anion Gap 7 (6-14) Blood Urea Nitrogen 46 mg/dL (8-26) Creatinine 2.5 mg/dL (0.7-1.3) Estimated GFR (Cockcroft-Gault) 25.1 BUN/Creatinine Ratio 18 (6-20) Glucose Level 117 mg/dL (70-99) Lactic Acid Level 0.9 mmol/L (0.4-2.0) Calcium Level 8.1 mg/dL (8.5-10.1) Magnesium Level 1.8 mg/dL (1.8-2.4) Total Bilirubin 0.3 mg/dL (0.2-1.0) Aspartate Amino Transf (AST/SGOT) 19 U/L (15-37) Alanine Aminotransferase (ALT/SGPT) 21 U/L (16-63) Alkaline Phosphatase 71 U/L (46-116) Creatine Kinase 84 U/L (39-308) Creatine Kinase MB (Mass) 1.2 ng/mL (0.0-3.6) Creatine Kinase MB Relative Index 1.4 % (0-4) Troponin I Quantitative 0.410 ng/mL (0.000-0.055) 0.278 ng/mL (0.000-0.055) 0.190 ng/mL (0.000-0.055) JO-Rum-L-Type Natriuretic Peptide 65982 pg/mL (0-449) Total Protein 5.7 g/dL (6.4-8.2) Albumin 2.5 g/dL (3.4-5.0) Albumin/Globulin Ratio 0.8 (1.0-1.7) Procalcitonin 0.27 ng/mL (0.00-0.10) Thyroid Stimulating Hormone (TSH) 2.149 uIU/mL (0.358-3.74) Urine Opiates Screen Neg (NEG) Urine Methadone Screen Neg (NEG) Urine Barbiturates Neg (NEG) Urine Phencyclidine Screen Neg (NEG) Urine Amphetamine/Methamphetamine Neg (NEG) Urine Benzodiazepines Screen Neg (NEG) Urine Cocaine Screen Neg (NEG) Urine Cannabinoids Screen Neg (NEG) Urine Ethyl Alcohol Neg (NEG) Segmented Neutrophils % 90 % (35-66) Band Neutrophils % 4 % (0-9) Lymphocytes % 5 % (24-48) Monocytes % 1 % (0-10) Platelet Estimate Adequate (ADEQUATE) Large Platelets Few Anisocytosis Slight Test 01/30/19 08:09 Glucose (Fingerstick) 282 mg/dL (70-99) Laboratory Tests Test 01/29/19 19:50 01/29/19 22:11 01/30/19 01:20 01/30/19 07:20 White Blood Count 8.7 x10^3/uL (4.0-11.0) 3.3 x10^3/uL (4.0-11.0) Red Blood Count 3.93 x10^6/uL (4.30-5.70) 3.83 x10^6/uL (4.30-5.70) Hemoglobin 11.2 g/dL (13.0-17.5) 10.8 g/dL (13.0-17.5) Hematocrit 33.3 % (39.0-53.0) 32.2 % (39.0-53.0) Mean Corpuscular Volume 85 fL (79-100) 84 fL (79-100) Mean Corpuscular Hemoglobin 28 pg (25-35) 28 pg (25-35) Mean Corpuscular Hemoglobin Concent 34 g/dL (31-37) 34 g/dL (31-37) Red Cell Distribution Width 14.7 % (11.5-14.5) 14.7 % (11.5-14.5) Platelet Count 285 x10^3/uL (140-400) 257 x10^3/uL (140-400) Neutrophils (%) (Auto) 71 % (31-73) 89 % (31-73) Lymphocytes (%) (Auto) 18 % (24-48) 9 % (24-48) Monocytes (%) (Auto) 9 % (0-9) 2 % (0-9) Eosinophils (%) (Auto) 1 % (0-3) 0 % (0-3) Basophils (%) (Auto) 1 % (0-3) 0 % (0-3) Neutrophils # (Auto) 6.2 x10^3/uL (1.8-7.7) 3.0 x10^3/uL (1.8-7.7) Lymphocytes # (Auto) 1.5 x10^3/uL (1.0-4.8) 0.3 x10^3/uL (1.0-4.8) Monocytes # (Auto) 0.8 x10^3/uL (0.0-1.1) 0.1 x10^3/uL (0.0-1.1) Eosinophils # (Auto) 0.1 x10^3/uL (0.0-0.7) 0.0 x10^3/uL (0.0-0.7) Basophils # (Auto) 0.1 x10^3/uL (0.0-0.2) 0.0 x10^3/uL (0.0-0.2) Prothrombin Time 13.8 SEC (11.7-14.0) Prothromb Time International Ratio 1.1 (0.8-1.1) Activated Partial Thromboplast Time 31 SEC (24-38) D-Dimer (Rashmi) 0.86 ug/mlFEU (0.00-0.50) Sodium Level 144 mmol/L (136-145) Potassium Level 4.1 mmol/L (3.5-5.1) Chloride Level 107 mmol/L (98-107) Carbon Dioxide Level 30 mmol/L (21-32) Anion Gap 7 (6-14) Blood Urea Nitrogen 46 mg/dL (8-26) Creatinine 2.5 mg/dL (0.7-1.3) Estimated GFR (Cockcroft-Gault) 25.1 BUN/Creatinine Ratio 18 (6-20) Glucose Level 117 mg/dL (70-99) Lactic Acid Level 0.9 mmol/L (0.4-2.0) Calcium Level 8.1 mg/dL (8.5-10.1) Magnesium Level 1.8 mg/dL (1.8-2.4) Total Bilirubin 0.3 mg/dL (0.2-1.0) Aspartate Amino Transf (AST/SGOT) 19 U/L (15-37) Alanine Aminotransferase (ALT/SGPT) 21 U/L (16-63) Alkaline Phosphatase 71 U/L (46-116) Creatine Kinase 84 U/L (39-308) Creatine Kinase MB (Mass) 1.2 ng/mL (0.0-3.6) Creatine Kinase MB Relative Index 1.4 % (0-4) Troponin I Quantitative 0.410 ng/mL (0.000-0.055) 0.278 ng/mL (0.000-0.055) 0.190 ng/mL (0.000-0.055) MA-Zqg-X-Type Natriuretic Peptide 38654 pg/mL (0-449) Total Protein 5.7 g/dL (6.4-8.2) Albumin 2.5 g/dL (3.4-5.0) Albumin/Globulin Ratio 0.8 (1.0-1.7) Procalcitonin 0.27 ng/mL (0.00-0.10) Thyroid Stimulating Hormone (TSH) 2.149 uIU/mL (0.358-3.74) Urine Opiates Screen Neg (NEG) Urine Methadone Screen Neg (NEG) Urine Barbiturates Neg (NEG) Urine Phencyclidine Screen Neg (NEG) Urine Amphetamine/Methamphetamine Neg (NEG) Urine Benzodiazepines Screen Neg (NEG) Urine Cocaine Screen Neg (NEG) Urine Cannabinoids Screen Neg (NEG) Urine Ethyl Alcohol Neg (NEG) Segmented Neutrophils % 90 % (35-66) Band Neutrophils % 4 % (0-9) Lymphocytes % 5 % (24-48) Monocytes % 1 % (0-10) Platelet Estimate Adequate (ADEQUATE) Large Platelets Few Anisocytosis Slight Test 01/30/19 08:09 Glucose (Fingerstick) 282 mg/dL (70-99) Medications Current Medications Albuterol/ Ipratropium (Duoneb) 3 ml 1X ONCE NEB Last administered on 01/29/19at 20:09; Start 01/29/19 at 19:45; Stop 01/29/19 at 19:46; Status DC Methylprednisolone Sodium Succinate (SOLU-Medrol 125MG VIAL) 125 mg 1X ONCE IV Last administered on 01/29/19at 20:02; Start 01/29/19 at 19:45; Stop 01/29/19 at 19:46; Status DC Hydralazine HCl (Apresoline Inj) 10 mg 1X ONCE IVP Last administered on 01/29/19at 20:02; Start 01/29/19 at 20:00; Stop 01/29/19 at 20:01; Status DC Amlodipine Besylate (Norvasc) 5 mg DAILY PO ; Start 01/30/19 at 09:00; Stop 01/30/19 at 09:09; Status DC Aspirin (Angeli Aspirin) 325 mg DAILY PO ; Start 01/30/19 at 09:00 Atorvastatin Calcium (Lipitor) 40 mg QHS PO Last administered on 01/29/19at 22:26; Start 01/29/19 at 21:00 Insulin Glargine (Lantus) 35 units DAILY SQ ; Start 01/30/19 at 09:00 Lisinopril (Prinivil) 40 mg DAILY PO ; Start 01/30/19 at 09:00 Metoprolol Tartrate (Lopressor) 25 mg DAILY PO ; Start 01/30/19 at 09:00 Metoprolol Tartrate (Lopressor) 12.5 mg QHS PO Last administered on 01/29/19at 22:26; Start 01/29/19 at 21:00 Vitamin D (Vitamin D3) 5,000 unit DAILY PO ; Start 01/30/19 at 09:00 Non-Formulary Medication (Patiromer Calcium Sorbitex (Veltassa)) 8.4 gm DAILY PO ; Start 01/30/19 at 09:00; Status UNV Fish Oil (Fish Oil) 1,000 mg DAILY PO ; Start 01/30/19 at 09:00 Insulin Human Lispro (HumaLOG) 0-9 UNITS TIDWMEALS SQ Last administered on 01/30/19at 09:40; Start 01/30/19 at 08:00 Dextrose (Dextrose 50%-Water Syringe) 12.5 gm PRN Q15MIN PRN IV SEE COMMENTS; Start 01/29/19 at 20:15 Dextrose 250 ml PRN Q15MIN PRN IV SEE COMMENTS; Start 01/29/19 at 20:15 Albuterol/ Ipratropium (Duoneb) 3 ml RTQID NEB Last administered on 01/30/19at 07:28; Start 01/30/19 at 08:00 Acetaminophen/ Codeine Phosphate (Tylenol #3) 1 tab PRN Q6HRS PRN PO PAIN; Start 01/29/19 at 20:15 Guaifenesin (Robitussin Dm) 10 ml PRN Q6HRS PRN PO COUGH; Start 01/29/19 at 20:15 Zolpidem Tartrate (Ambien) 2.5 mg PRN QHS PRN PO INSOMNIA; Start 01/29/19 at 20:15 Ondansetron HCl (Zofran) 4 mg PRN Q6HRS PRN IV NAUSEA/VOMITING; Start 01/29/19 at 20:15 Clonidine HCl (Catapres) 0.1 mg PRN Q1HR PRN PO HYPERTENSION; Start 01/29/19 at 20:15 Hydralazine HCl (Apresoline Inj) 10 mg PRN Q4HRS PRN IVP ELEVATED BP, SEE COMMENTS; Start 01/29/19 at 20:15 Furosemide (Lasix) 40 mg 1X ONCE IVP ; Start 01/29/19 at 21:00; Stop 01/29/19 at 20:53; Status DC Labetalol HCl (Normodyne Iv Push) 20 mg PRN Q2HR PRN IVP HYPERTENSION Last administered on 01/29/19at 23:24; Start 01/29/19 at 21:00 Nitroglycerin/ Dextrose 250 ml @ 0 mls/hr 1X ONCE IV ; Start 01/29/19 at 21:00; Stop 01/29/19 at 20:53; Status DC Furosemide (Lasix) 60 mg 1X ONCE IVP Last administered on 01/29/19at 21:24; Start 01/29/19 at 21:00; Stop 01/29/19 at 21:01; Status DC Ondansetron HCl (Zofran) 4 mg PRN Q8HRS PRN IV NAUSEA/VOMITING; Start 01/29/19 at 21:00; Stop 01/30/19 at 20:59; Status UNV Acetaminophen (Tylenol) 650 mg PRN Q4HRS PRN PO FEVER; Start 01/29/19 at 21:00; Stop 01/30/19 at 20:59 Amlodipine Besylate (Norvasc) 10 mg DAILY PO ; Start 01/31/19 at 09:00 Active Scripts Active Reported Isosorbide Mononitrate Er (Isosorbide Mononitrate) 30 Mg Tab.er.24h 30 Mg PO DAILY Flomax (Tamsulosin Hcl) 0.4 Mg Cap.er.24h 0.4 Mg PO QHS Aspirin 81 Mg Tab.chew 81 Mg PO DAILY Metoprolol Tartrate 25 Mg Tablet 12.5 Mg PO QHS Amlodipine Besylate 5 Mg Tablet 5 Mg PO QHS Metoprolol Tartrate 25 Mg Tablet 1 Tab PO DAILY Atorvastatin Calcium 40 Mg Tablet 1 Tab PO QHS Basaglar Norrispen U-100 (Insulin Glargine,Hum.rec.anlog) 100 Unit/1 Ml Insuln.pen 35 Unit SQ DAILY Vitals/I & O Vital Sign - Last 24 Hours 01/29/19 01/29/19 01/29/19 01/29/19 18:53 19:15 19:16 19:55 Temp 98.1 98.3 98.1 98.3 Pulse 81 82 82 78 Resp 20 22 20 20 B/P (MAP) 157/80 (105) 226/100 (142) 226/100 (142) 205/93 (130) Pulse Ox 94 92 92 95 O2 Delivery Nasal Cannula Nasal Cannula Nasal Cannula O2 Flow Rate 4.0 4.0 4.0 4.0 01/29/19 01/29/19 01/29/19 01/29/19 20:02 20:11 20:16 20:46 Pulse 79 84 82 Resp 20 20 B/P (MAP) 205/93 201/89 (126) 176/78 (110) Pulse Ox 94 94 95 O2 Delivery Nasal Cannula Nasal Cannula Nasal Cannula O2 Flow Rate 4.0 4.0 4.0 01/29/19 01/29/19 01/29/19 01/29/19 21:50 21:50 22:26 23:05 Temp 98.3 98.3 98.3 98.3 Pulse 86 91 86 Resp 20 20 B/P (MAP) 205/86 (125) 205/86 204/86 (125) Pulse Ox 94 96 O2 Delivery Nasal Cannula Nasal Cannula Nasal Cannula O2 Flow Rate 4.0 4.0 4.0 01/29/19 01/30/19 01/30/19 01/30/19 23:24 00:28 02:24 04:12 Temp 98.7 97.8 98.7 97.8 Pulse 86 84 84 86 Resp 18 18 B/P (MAP) 204/86 159/62 (94) 162/70 (100) 162/70 (100) Pulse Ox 96 93 O2 Delivery Nasal Cannula Nasal Cannula O2 Flow Rate 4.0 4.0 01/30/19 01/30/19 07:00 07:28 Temp 97.1 97.1 Pulse 88 Resp 20 B/P (MAP) 187/84 (118) Pulse Ox 96 96 O2 Delivery Nasal Cannula Nasal Cannula O2 Flow Rate 4.0 4.0 Intake and Output 01/29/19 01/29/19 01/30/19 14:59 22:59 06:59 Intake Total 630 ml Output Total 300 ml 700 ml Balance -300 ml -70 ml DEVORAH EUBANKS MD Jan 30, 2019 10:26
--- NOTE | 2019-01-30 11:13 | PDOC2 ---
CARDIAC CONSULT DATE OF CONSULT Date of Consult DATE: 01/30/19 TIME: 11:00 REASON FOR CONSULT Reason for Consult: Elevated troponin REFERRING PHYSICIAN Referring Physician: Lolly Toro APRN SOURCE Source: Chart review, Patient HISTORY OF PRESENT ILLNESS HISTORY OF PRESENT ILLNESS This is a 78 yo male who presented secondary to shortness of breath. Patient reports not feeling well for the last week. Has had cough, cold, congestion. Cough productive of clear sputum. Has had LE edema for the last couple of weeks. Yesterday, became more short of breath. Oxygen saturation was ranging from upper 60's to 89 at home. Called EMS. Denies any chest pain, palpitations, dizziness, diaphoresis, orthopnea, or nausea/vomiting. PAST MEDICAL HISTORY Past Medical History Cardiovascular: AFIB, CAD, HTN, HI, Hyperlipidemia GI: Diverticulosis ENT: Other (retinopathy) Renal/: Benign prostatic enlarg., CKD Endocrine: Diabetes (2) PAST SURGICAL HISTORY Past Surgical History Arthroscopy (left shoulder ), Cholecystectomy, Tonsillectomy, Other (PCI multipel stents 2012; eye surgery) SOCIAL HISTORY Social History Smoke: Quit ALCOHOL: none Drugs: None Lives: with Family CURRENT MEDICATIONS CURRENT MEDICATIONS Current Medications Medications (Trade) Dose Ordered Sig/[place] Route PRN Reason Start Time Stop Time Status Last Admin Dose Admin Albuterol/ Ipratropium (Duoneb) 3 ml 1X ONCE NEB 01/29/19 19:45 01/29/19 19:46 DC 01/29/19 20:09 Methylprednisolone Sodium Succinate (SOLU-Medrol 125MG VIAL) 125 mg 1X ONCE IV 01/29/19 19:45 01/29/19 19:46 DC 01/29/19 20:02 Hydralazine HCl (Apresoline Inj) 10 mg 1X ONCE IVP 01/29/19 20:00 01/29/19 20:01 DC 01/29/19 20:02 Atorvastatin Calcium (Lipitor) 40 mg QHS PO 01/29/19 21:00 01/29/19 22:26 Metoprolol Tartrate (Lopressor) 12.5 mg QHS PO 01/29/19 21:00 01/29/19 22:26 Insulin Human Lispro (HumaLOG) 0-9 UNITS TIDWMEALS SQ 01/30/19 08:00 01/30/19 09:40 Albuterol/ Ipratropium (Duoneb) 3 ml RTQID NEB 01/30/19 08:00 01/30/19 07:28 Labetalol HCl (Normodyne Iv Push) 20 mg PRN Q2HR PRN IVP HYPERTENSION 01/29/19 21:00 01/29/19 23:24 Furosemide (Lasix) 60 mg 1X ONCE IVP 01/29/19 21:00 01/29/19 21:01 DC 01/29/19 21:24 ALLERGIES ALLERGIES: Coded Allergies: No Known Drug Allergies (Unverified , 06/03/13) ROS Review of System 14 point ROS conducted with pertinent positives noted above in HPI. PHYSICAL EXAM PHYSICAL EXAM General: Alert, Oriented X3, Cooperative, No acute distress HEENT: Atraumatic, Mucous membr. moist/pink Lungs: Other (basilar crackles) Heart: Regular rate (SR LBBB), Normal S1, Normal S2, Other (2/6 systolic murmur to LLS border) Abdomen: Soft, No tenderness, Other (obese) Extremities: No cyanosis, Other (2+ bilateral LE pitting edema) Skin: No breakdown, No significant lesion Neuro: Normal speech, Sensation intact Psych/Mental Status: Mental status NL, Mood NL MUSCULOSKELETAL: Osteoarthritic changes both hands VITALS/I&O VITALS/I&O: Vital Signs Date Time Temp Pulse Resp B/P (MAP) Pulse Ox O2 Delivery O2 Flow Rate FiO2 01/30/19 07:28 96 Nasal Cannula 4.0 01/30/19 07:00 97.1 88 20 187/84 (118) 97.1 I & O 01/29/19 01/29/19 01/30/19 14:59 22:59 06:59 Intake Total 630 ml Output Total 300 ml 700 ml Balance -300 ml -70 ml LABS Lab: Laboratory Tests Test 01/29/19 19:50 01/29/19 22:11 01/30/19 01:20 01/30/19 07:20 White Blood Count 8.7 x10^3/uL (4.0-11.0) 3.3 x10^3/uL (4.0-11.0) L Red Blood Count 3.93 x10^6/uL (4.30-5.70) L 3.83 x10^6/uL (4.30-5.70) L Hemoglobin 11.2 g/dL (13.0-17.5) L 10.8 g/dL (13.0-17.5) L Hematocrit 33.3 % (39.0-53.0) L 32.2 % (39.0-53.0) L Mean Corpuscular Volume 85 fL (79-100) 84 fL (79-100) Mean Corpuscular Hemoglobin 28 pg (25-35) 28 pg (25-35) Mean Corpuscular Hemoglobin Concent 34 g/dL (31-37) 34 g/dL (31-37) Red Cell Distribution Width 14.7 % (11.5-14.5) H 14.7 % (11.5-14.5) H Platelet Count 285 x10^3/uL (140-400) 257 x10^3/uL (140-400) Neutrophils (%) (Auto) 71 % (31-73) 89 % (31-73) H Lymphocytes (%) (Auto) 18 % (24-48) L 9 % (24-48) L Monocytes (%) (Auto) 9 % (0-9) 2 % (0-9) Eosinophils (%) (Auto) 1 % (0-3) 0 % (0-3) Basophils (%) (Auto) 1 % (0-3) 0 % (0-3) Neutrophils # (Auto) 6.2 x10^3/uL (1.8-7.7) 3.0 x10^3/uL (1.8-7.7) Lymphocytes # (Auto) 1.5 x10^3/uL (1.0-4.8) 0.3 x10^3/uL (1.0-4.8) L Monocytes # (Auto) 0.8 x10^3/uL (0.0-1.1) 0.1 x10^3/uL (0.0-1.1) Eosinophils # (Auto) 0.1 x10^3/uL (0.0-0.7) 0.0 x10^3/uL (0.0-0.7) Basophils # (Auto) 0.1 x10^3/uL (0.0-0.2) 0.0 x10^3/uL (0.0-0.2) Prothrombin Time 13.8 SEC (11.7-14.0) Prothrombin Time INR 1.1 (0.8-1.1) Activated Partial Thromboplast Time 31 SEC (24-38) D-Dimer (Rashmi) 0.86 ug/mlFEU (0.00-0.50) H Sodium Level 144 mmol/L (136-145) Potassium Level 4.1 mmol/L (3.5-5.1) Chloride Level 107 mmol/L (98-107) Carbon Dioxide Level 30 mmol/L (21-32) Anion Gap 7 (6-14) Blood Urea Nitrogen 46 mg/dL (8-26) H Creatinine 2.5 mg/dL (0.7-1.3) H Estimated GFR (Cockcroft-Gault) 25.1 BUN/Creatinine Ratio 18 (6-20) Glucose Level 117 mg/dL (70-99) H Lactic Acid Level 0.9 mmol/L (0.4-2.0) Calcium Level 8.1 mg/dL (8.5-10.1) L Magnesium Level 1.8 mg/dL (1.8-2.4) Total Bilirubin 0.3 mg/dL (0.2-1.0) Aspartate Amino Transferase (AST) 19 U/L (15-37) Alanine Aminotransferase (ALT) 21 U/L (16-63) Alkaline Phosphatase 71 U/L (46-116) Creatine Kinase 84 U/L (39-308) Creatine Kinase MB (Mass) 1.2 ng/mL (0.0-3.6) Creatine Kinase MB Relative Index 1.4 % (0-4) Troponin I Quantitative 0.410 ng/mL (0.000-0.055) 0.278 ng/mL (0.000-0.055) 0.190 ng/mL (0.000-0.055) UP-Udz-J-Type Natriuretic Peptide 63132 pg/mL (0-449) H Total Protein 5.7 g/dL (6.4-8.2) L Albumin 2.5 g/dL (3.4-5.0) L Albumin/Globulin Ratio 0.8 (1.0-1.7) L Procalcitonin 0.27 ng/mL (0.00-0.10) H Thyroid Stimulating Hormone (TSH) 2.149 uIU/mL (0.358-3.74) Urine Opiates Screen Neg (NEG) Urine Methadone Screen Neg (NEG) Urine Barbiturates Neg (NEG) Urine Phencyclidine Screen Neg (NEG) Urine Amphetamine/Methamphetamine Neg (NEG) Urine Benzodiazepines Screen Neg (NEG) Urine Cocaine Screen Neg (NEG) Urine Cannabinoids Screen Neg (NEG) Urine Ethyl Alcohol Neg (NEG) Segmented Neutrophils % 90 % (35-66) H Band Neutrophils % 4 % (0-9) Lymphocytes % 5 % (24-48) L Monocytes % 1 % (0-10) Platelet Estimate Adequate (ADEQUATE) Large Platelets Few Anisocytosis Slight Test 01/30/19 08:09 Glucose (Fingerstick) 282 mg/dL (70-99) H Laboratory Tests 01/29/19 19:50 01/30/19 07:20 Laboratory Tests 01/29/19 19:50 ECHOCARDIOGRAM ECHOCARDIOGRAM <Conclusion> The left ventricle is normal size. The left ventricular systolic function is normal and the ejection fraction is within normal range. The Ejection Fraction is 55-60%. There is mild concentric left ventricular hypertrophy. There is no significant aortic valvular stenosis. Doppler and Color Flow revealed no significant aortic regurgitation. Doppler and Color-flow revealed trace to mild mitral regurgitation. Doppler and Color Flow revealed mild tricuspid regurgitation. The PA pressure was estimated at 48 mmHg. DATE: 10/19/18 1637 Limited Echo <Conclusion> The left ventricular systolic function is normal. The Ejection Fraction is 55-60%. There is normal LV segmental wall motion. The left atrium is moderately dilated. Mild tricuspid regurgitation. There is moderate pulmonary hypertension. The PA pressure was estimated at 57 mmHg. There is no evidence of significant pericardial effusion. DATE: 10/25/18 1416 STRESS TEST STRESS TEST Conclusion 1. No evidence of stress induced EKG changes. 2. Abnormal perfusion study with LAD territory ischemia. 3. Mild LV dysfunction. EF 50% 4. Moderate to high risk study Recommendations Cardiac catheterization DATE: 10/28/18 1022 HEART CATH HEART CATH Conclusion 3 vessel CAD Successful PCI of proximal CX with MICHELLE Successful PCI of distal CX and LPDA with MICHELLE Recommendations Daily ASA with Plavix for at least one year Aggressive Medical TherapyCardiac Risk Reduction Program Weight Loss Reduction ProgramMedical Therapy Plan staged PCI of LAD Medical therapy for non-dominant small RCA DATE: 06/03/13 1608 ASSESSMENT/PLAN ASSESSMENT/PLAN 1. Acute on chronic hypoxic respiratory failure; multifactorial with a/c CHF and AE COPD 2. Elevated troponin with LBBB, Trop peak at 0.4. Possibly type II, demand ischemic in the setting hypoxia, accelerated HTN, and VIN/CKD. CP free. 3. Acute on chronic diastolic HF 4. Accelerated hypertension; remains elevated. 5. CAD; PCI 3 stents in the past as above. Recent abnormal stress test. Opted for medical management given lack of anginal symptoms, debility, preserved LV systolic function, and CKD 6. VIN on CKD; nephrology following 7. Hyperlipidemia 8. Diabetes, II 9. DM2 10. Morbid obesity, debility Recommendations Mild diuresis Resume home antiHTN therapy. Titrate as warranted. Hydralazine IV PRN Again discussed r/b/a of further ischemic evaluation with cardiac cath given history/risk factors of CAD and abnormal stress test along with risk of GET/worsening or real function. At this time, patient would like to continue with medical management as previously discussed. Continue secondary prevention measures. Lung optimization as per pulmonary Follow renal recommendations SALLY ARITA APRN Jan 30, 2019 11:13
[2019-01-30] MEDS: LISINOPRIL 20 MG TABLET PO SCH (11:42)
[2019-01-30] MEDS: ISOSORBIDE MONONITRATE ER 30 MG TAB.ER.24H PO SCH (11:43)
[2019-01-30] MEDS: METOPROLOL TART IMMED RELEASE 25 MG TABLET. PO SCH ×2 (11:43→21:36)
[2019-01-30] MEDS ORDERED: FUROSEMIDE 80 MG TABLET. PO ONE (12:00)
--- NOTE | 2019-01-30 14:29 | PDOC ---
PULMONARY PROGRESS NOTES Vitals Vital Signs Date Time Temp Pulse Resp B/P (MAP) Pulse Ox O2 Delivery O2 Flow Rate FiO2 01/30/19 12:38 Nasal Cannula 4.0 01/30/19 11:44 83 218/86 01/30/19 11:00 98.7 18 97 98.7 General: Alert, No acute distress Lungs: Clear Cardiovascular: S1, S2 Abdomen: Soft Extremities: Other Labs Laboratory Tests Test 01/29/19 19:50 01/29/19 22:11 01/30/19 01:20 01/30/19 07:20 White Blood Count 8.7 x10^3/uL (4.0-11.0) 3.3 x10^3/uL (4.0-11.0) Red Blood Count 3.93 x10^6/uL (4.30-5.70) 3.83 x10^6/uL (4.30-5.70) Hemoglobin 11.2 g/dL (13.0-17.5) 10.8 g/dL (13.0-17.5) Hematocrit 33.3 % (39.0-53.0) 32.2 % (39.0-53.0) Mean Corpuscular Volume 85 fL (79-100) 84 fL (79-100) Mean Corpuscular Hemoglobin 28 pg (25-35) 28 pg (25-35) Mean Corpuscular Hemoglobin Concent 34 g/dL (31-37) 34 g/dL (31-37) Red Cell Distribution Width 14.7 % (11.5-14.5) 14.7 % (11.5-14.5) Platelet Count 285 x10^3/uL (140-400) 257 x10^3/uL (140-400) Neutrophils (%) (Auto) 71 % (31-73) 89 % (31-73) Lymphocytes (%) (Auto) 18 % (24-48) 9 % (24-48) Monocytes (%) (Auto) 9 % (0-9) 2 % (0-9) Eosinophils (%) (Auto) 1 % (0-3) 0 % (0-3) Basophils (%) (Auto) 1 % (0-3) 0 % (0-3) Neutrophils # (Auto) 6.2 x10^3/uL (1.8-7.7) 3.0 x10^3/uL (1.8-7.7) Lymphocytes # (Auto) 1.5 x10^3/uL (1.0-4.8) 0.3 x10^3/uL (1.0-4.8) Monocytes # (Auto) 0.8 x10^3/uL (0.0-1.1) 0.1 x10^3/uL (0.0-1.1) Eosinophils # (Auto) 0.1 x10^3/uL (0.0-0.7) 0.0 x10^3/uL (0.0-0.7) Basophils # (Auto) 0.1 x10^3/uL (0.0-0.2) 0.0 x10^3/uL (0.0-0.2) Prothrombin Time 13.8 SEC (11.7-14.0) Prothromb Time International Ratio 1.1 (0.8-1.1) Activated Partial Thromboplast Time 31 SEC (24-38) D-Dimer (Rashmi) 0.86 ug/mlFEU (0.00-0.50) Sodium Level 144 mmol/L (136-145) Potassium Level 4.1 mmol/L (3.5-5.1) Chloride Level 107 mmol/L (98-107) Carbon Dioxide Level 30 mmol/L (21-32) Anion Gap 7 (6-14) Blood Urea Nitrogen 46 mg/dL (8-26) Creatinine 2.5 mg/dL (0.7-1.3) Estimated GFR (Cockcroft-Gault) 25.1 BUN/Creatinine Ratio 18 (6-20) Glucose Level 117 mg/dL (70-99) Lactic Acid Level 0.9 mmol/L (0.4-2.0) Calcium Level 8.1 mg/dL (8.5-10.1) Magnesium Level 1.8 mg/dL (1.8-2.4) Total Bilirubin 0.3 mg/dL (0.2-1.0) Aspartate Amino Transf (AST/SGOT) 19 U/L (15-37) Alanine Aminotransferase (ALT/SGPT) 21 U/L (16-63) Alkaline Phosphatase 71 U/L (46-116) Creatine Kinase 84 U/L (39-308) Creatine Kinase MB (Mass) 1.2 ng/mL (0.0-3.6) Creatine Kinase MB Relative Index 1.4 % (0-4) Troponin I Quantitative 0.410 ng/mL (0.000-0.055) 0.278 ng/mL (0.000-0.055) 0.190 ng/mL (0.000-0.055) OQ-Gvl-X-Type Natriuretic Peptide 14891 pg/mL (0-449) Total Protein 5.7 g/dL (6.4-8.2) Albumin 2.5 g/dL (3.4-5.0) Albumin/Globulin Ratio 0.8 (1.0-1.7) Procalcitonin 0.27 ng/mL (0.00-0.10) Thyroid Stimulating Hormone (TSH) 2.149 uIU/mL (0.358-3.74) Urine Opiates Screen Neg (NEG) Urine Methadone Screen Neg (NEG) Urine Barbiturates Neg (NEG) Urine Phencyclidine Screen Neg (NEG) Urine Amphetamine/Methamphetamine Neg (NEG) Urine Benzodiazepines Screen Neg (NEG) Urine Cocaine Screen Neg (NEG) Urine Cannabinoids Screen Neg (NEG) Urine Ethyl Alcohol Neg (NEG) Segmented Neutrophils % 90 % (35-66) Band Neutrophils % 4 % (0-9) Lymphocytes % 5 % (24-48) Monocytes % 1 % (0-10) Platelet Estimate Adequate (ADEQUATE) Large Platelets Few Anisocytosis Slight Test 01/30/19 08:09 01/30/19 11:51 Glucose (Fingerstick) 282 mg/dL (70-99) 307 mg/dL (70-99) Laboratory Tests Test 01/29/19 19:50 01/29/19 22:11 01/30/19 01:20 01/30/19 07:20 White Blood Count 8.7 x10^3/uL (4.0-11.0) 3.3 x10^3/uL (4.0-11.0) Red Blood Count 3.93 x10^6/uL (4.30-5.70) 3.83 x10^6/uL (4.30-5.70) Hemoglobin 11.2 g/dL (13.0-17.5) 10.8 g/dL (13.0-17.5) Hematocrit 33.3 % (39.0-53.0) 32.2 % (39.0-53.0) Mean Corpuscular Volume 85 fL (79-100) 84 fL (79-100) Mean Corpuscular Hemoglobin 28 pg (25-35) 28 pg (25-35) Mean Corpuscular Hemoglobin Concent 34 g/dL (31-37) 34 g/dL (31-37) Red Cell Distribution Width 14.7 % (11.5-14.5) 14.7 % (11.5-14.5) Platelet Count 285 x10^3/uL (140-400) 257 x10^3/uL (140-400) Neutrophils (%) (Auto) 71 % (31-73) 89 % (31-73) Lymphocytes (%) (Auto) 18 % (24-48) 9 % (24-48) Monocytes (%) (Auto) 9 % (0-9) 2 % (0-9) Eosinophils (%) (Auto) 1 % (0-3) 0 % (0-3) Basophils (%) (Auto) 1 % (0-3) 0 % (0-3) Neutrophils # (Auto) 6.2 x10^3/uL (1.8-7.7) 3.0 x10^3/uL (1.8-7.7) Lymphocytes # (Auto) 1.5 x10^3/uL (1.0-4.8) 0.3 x10^3/uL (1.0-4.8) Monocytes # (Auto) 0.8 x10^3/uL (0.0-1.1) 0.1 x10^3/uL (0.0-1.1) Eosinophils # (Auto) 0.1 x10^3/uL (0.0-0.7) 0.0 x10^3/uL (0.0-0.7) Basophils # (Auto) 0.1 x10^3/uL (0.0-0.2) 0.0 x10^3/uL (0.0-0.2) Prothrombin Time 13.8 SEC (11.7-14.0) Prothromb Time International Ratio 1.1 (0.8-1.1) Activated Partial Thromboplast Time 31 SEC (24-38) D-Dimer (Rashmi) 0.86 ug/mlFEU (0.00-0.50) Sodium Level 144 mmol/L (136-145) Potassium Level 4.1 mmol/L (3.5-5.1) Chloride Level 107 mmol/L (98-107) Carbon Dioxide Level 30 mmol/L (21-32) Anion Gap 7 (6-14) Blood Urea Nitrogen 46 mg/dL (8-26) Creatinine 2.5 mg/dL (0.7-1.3) Estimated GFR (Cockcroft-Gault) 25.1 BUN/Creatinine Ratio 18 (6-20) Glucose Level 117 mg/dL (70-99) Lactic Acid Level 0.9 mmol/L (0.4-2.0) Calcium Level 8.1 mg/dL (8.5-10.1) Magnesium Level 1.8 mg/dL (1.8-2.4) Total Bilirubin 0.3 mg/dL (0.2-1.0) Aspartate Amino Transf (AST/SGOT) 19 U/L (15-37) Alanine Aminotransferase (ALT/SGPT) 21 U/L (16-63) Alkaline Phosphatase 71 U/L (46-116) Creatine Kinase 84 U/L (39-308) Creatine Kinase MB (Mass) 1.2 ng/mL (0.0-3.6) Creatine Kinase MB Relative Index 1.4 % (0-4) Troponin I Quantitative 0.410 ng/mL (0.000-0.055) 0.278 ng/mL (0.000-0.055) 0.190 ng/mL (0.000-0.055) OP-Kiq-J-Type Natriuretic Peptide 11887 pg/mL (0-449) Total Protein 5.7 g/dL (6.4-8.2) Albumin 2.5 g/dL (3.4-5.0) Albumin/Globulin Ratio 0.8 (1.0-1.7) Procalcitonin 0.27 ng/mL (0.00-0.10) Thyroid Stimulating Hormone (TSH) 2.149 uIU/mL (0.358-3.74) Urine Opiates Screen Neg (NEG) Urine Methadone Screen Neg (NEG) Urine Barbiturates Neg (NEG) Urine Phencyclidine Screen Neg (NEG) Urine Amphetamine/Methamphetamine Neg (NEG) Urine Benzodiazepines Screen Neg (NEG) Urine Cocaine Screen Neg (NEG) Urine Cannabinoids Screen Neg (NEG) Urine Ethyl Alcohol Neg (NEG) Segmented Neutrophils % 90 % (35-66) Band Neutrophils % 4 % (0-9) Lymphocytes % 5 % (24-48) Monocytes % 1 % (0-10) Platelet Estimate Adequate (ADEQUATE) Large Platelets Few Anisocytosis Slight Test 01/30/19 08:09 01/30/19 11:51 Glucose (Fingerstick) 282 mg/dL (70-99) 307 mg/dL (70-99) Medications Active Scripts Medications Dose Route/Sig Max Daily Dose Days Date Category Isosorbide Mononitrate Er (Isosorbide Mononitrate) 30 Mg Tab.er.24h 30 Mg PO DAILY 01/30/19 Reported Flomax (Tamsulosin Hcl) 0.4 Mg Cap.er.24h 0.4 Mg PO QHS 01/30/19 Reported Aspirin 81 Mg Tab.chew 81 Mg PO DAILY 01/30/19 Reported Metoprolol Tartrate 25 Mg Tablet 12.5 Mg PO QHS 10/19/18 Reported Amlodipine Besylate 5 Mg Tablet 5 Mg PO QHS 10/19/18 Reported Metoprolol Tartrate 25 Mg Tablet 1 Tab PO DAILY 10/19/18 Reported Atorvastatin Calcium 40 Mg Tablet 1 Tab PO QHS 10/19/18 Reported Loreaglnaren Pisanopen U-100 (Insulin Glargine,Hum.rec.anlog) 100 Unit/1 Ml Insuln.pen 35 Unit SQ DAILY 10/19/18 Reported Impression . FULL NOTE DICTATED SEE ORDERS ACUTE RESP FAILURE/ACUTE D HEART FAILURE DEE DEE AECOPD NHI FERNÁNDEZ MD Jan 30, 2019 14:29
--- NOTE | 2019-01-30 15:32 | PDOC2 ---
CONSULT Date of Consult Date of Consult DATE: 01/30/19 TIME: 15:24 Reason for Consult Reason for Consult: RENAL FAILURE Referring Physician Referring Physician: CHA Identification/Chief Complaint Chief Complaint SOB Source Source: Chart review, Patient History of Present Illness Reason for Visit: THIS IS A 78 YR WITH SOB. NOTED TO BE HYPOXIC. CR OF 2.5 WITH BASELINE USUALLY AT ABOUT 3.0. HAS HYPOXIA AND PLEURAL EFFUSIONS. HX NOTABLE FOR CAD WITH AFIB AND CM. NEEDS LHC. PT REFUSING DUE TO CONCERNS OR RENAL FAILURE. ALSO NOTED TO HAVE TENSE LE EDEMA. HAS HX OF NON COMPLIANCE. HTN VERY MUCH UNCONTROLLED ON ARRIVAL WITH SBP OVER 200 Past Medical History Cardiovascular: AFIB, CAD, HTN, NH, Hyperlipidemia GI: Diverticulosis Heme/Onc: Anemia NOS Renal/: Chronic renal failure, Benign prostatic enlarg. Endocrine: Diabetes Past Surgical History Past Surgical History: Arthroscopy, Cholecystectomy, Tonsillectomy, Other Family History Family History: Hypertension Social History No ALCOHOL: none Drugs: None Lives: with Family Current Problem List Problem List Problems Medical Problems: (1) A-fib Status: Chronic (2) CAD (coronary artery disease) Status: Chronic (3) CHF (congestive heart failure) Status: Chronic (4) Chronic kidney disease Status: Acute (5) Elevated troponin Status: Acute (6) Obesity Status: Chronic (7) Respiratory failure Status: Acute Current Medications Current Medications Current Medications Albuterol/ Ipratropium (Duoneb) 3 ml 1X ONCE NEB Last administered on 01/29/19at 20:09; Start 01/29/19 at 19:45; Stop 01/29/19 at 19:46; Status DC Methylprednisolone Sodium Succinate (SOLU-Medrol 125MG VIAL) 125 mg 1X ONCE IV Last administered on 01/29/19at 20:02; Start 01/29/19 at 19:45; Stop 01/29/19 at 19:46; Status DC Hydralazine HCl (Apresoline Inj) 10 mg 1X ONCE IVP Last administered on 01/29/19at 20:02; Start 01/29/19 at 20:00; Stop 01/29/19 at 20:01; Status DC Amlodipine Besylate (Norvasc) 5 mg DAILY PO ; Start 01/30/19 at 09:00; Stop 01/30/19 at 09:09; Status DC Aspirin (Angeli Aspirin) 325 mg DAILY PO ; Start 01/30/19 at 09:00; Stop 01/30/19 at 10:28; Status DC Atorvastatin Calcium (Lipitor) 40 mg QHS PO Last administered on 01/29/19at 22:26; Start 01/29/19 at 21:00 Insulin Glargine (Lantus) 35 units DAILY SQ ; Start 01/30/19 at 09:00; Stop 01/30/19 at 10:28; Status DC Lisinopril (Prinivil) 40 mg DAILY PO Last administered on 01/30/19at 11:44; Start 01/30/19 at 09:00 Metoprolol Tartrate (Lopressor) 25 mg DAILY PO Last administered on 01/30/19 11:44; Start 01/30/19 at 09:00 Metoprolol Tartrate (Lopressor) 12.5 mg QHS PO Last administered on 01/29/19at 22:26; Start 01/29/19 at 21:00 Vitamin D (Vitamin D3) 5,000 unit DAILY PO ; Start 01/30/19 at 09:00; Status Cancel Non-Formulary Medication (Patiromer Calcium Sorbitex (Veltassa)) 8.4 gm DAILY PO ; Start 01/30/19 at 09:00; Status UNV Fish Oil (Fish Oil) 1,000 mg DAILY PO ; Start 01/30/19 at 09:00; Status Cancel Insulin Human Lispro (HumaLOG) 0-9 UNITS TIDWMEALS SQ Last administered on 01/30/19at 13:00; Start 01/30/19 at 08:00 Dextrose (Dextrose 50%-Water Syringe) 12.5 gm PRN Q15MIN PRN IV SEE COMMENTS; Start 01/29/19 at 20:15 Dextrose 250 ml PRN Q15MIN PRN IV SEE COMMENTS; Start 01/29/19 at 20:15 Albuterol/ Ipratropium (Duoneb) 3 ml RTQID NEB Last administered on 01/30/19at 12:38; Start 01/30/19 at 08:00 Acetaminophen/ Codeine Phosphate (Tylenol #3) 1 tab PRN Q6HRS PRN PO PAIN; Start 01/29/19 at 20:15 Guaifenesin (Robitussin Dm) 10 ml PRN Q6HRS PRN PO COUGH; Start 01/29/19 at 20:15 Zolpidem Tartrate (Ambien) 2.5 mg PRN QHS PRN PO INSOMNIA; Start 01/29/19 at 20:15 Ondansetron HCl (Zofran) 4 mg PRN Q6HRS PRN IV NAUSEA/VOMITING; Start 01/29/19 at 20:15 Clonidine HCl (Catapres) 0.1 mg PRN Q1HR PRN PO HYPERTENSION Last administered on 01/30/19at 11:44; Start 01/29/19 at 20:15 Hydralazine HCl (Apresoline Inj) 10 mg PRN Q4HRS PRN IVP ELEVATED BP, SEE COMMENTS; Start 01/29/19 at 20:15 Furosemide (Lasix) 40 mg 1X ONCE IVP ; Start 01/29/19 at 21:00; Stop 01/29/19 at 20:53; Status DC Labetalol HCl (Normodyne Iv Push) 20 mg PRN Q2HR PRN IVP HYPERTENSION Last administered on 01/29/19at 23:24; Start 01/29/19 at 21:00 Nitroglycerin/ Dextrose 250 ml @ 0 mls/hr 1X ONCE IV ; Start 01/29/19 at 21:00; Stop 01/29/19 at 20:53; Status DC Furosemide (Lasix) 60 mg 1X ONCE IVP Last administered on 01/29/19at 21:24; Start 01/29/19 at 21:00; Stop 01/29/19 at 21:01; Status DC Ondansetron HCl (Zofran) 4 mg PRN Q8HRS PRN IV NAUSEA/VOMITING; Start 01/29/19 at 21:00; Stop 01/30/19 at 20:59; Status UNV Acetaminophen (Tylenol) 650 mg PRN Q4HRS PRN PO FEVER; Start 01/29/19 at 21:00; Stop 01/30/19 at 20:59 Amlodipine Besylate (Norvasc) 10 mg DAILY PO ; Start 01/31/19 at 09:00 Aspirin (Children'S Aspirin) 81 mg DAILY PO ; Start 01/31/19 at 09:00 Isosorbide Mononitrate (Imdur) 30 mg DAILY PO Last administered on 01/30/19at 11:44; Start 01/30/19 at 11:00 Tamsulosin HCl (Flomax) 0.4 mg QHS PO ; Start 01/30/19 at 21:00 Insulin Glargine (Lantus) 35 units QHS SQ ; Start 01/30/19 at 21:00 Furosemide (Lasix) 80 mg 1X ONCE PO Last administered on 01/30/19at 13:00; Start 01/30/19 at 12:00; Stop 01/30/19 at 12:01; Status DC Doxycycline Hyclate (Vibra-Tab) 100 mg BID PO ; Start 01/30/19 at 14:30 Active Scripts Active Reported Isosorbide Mononitrate Er (Isosorbide Mononitrate) 30 Mg Tab.er.24h 30 Mg PO DAILY Flomax (Tamsulosin Hcl) 0.4 Mg Cap.er.24h 0.4 Mg PO QHS Aspirin 81 Mg Tab.chew 81 Mg PO DAILY Metoprolol Tartrate 25 Mg Tablet 12.5 Mg PO QHS Amlodipine Besylate 5 Mg Tablet 5 Mg PO QHS Metoprolol Tartrate 25 Mg Tablet 1 Tab PO DAILY Atorvastatin Calcium 40 Mg Tablet 1 Tab PO QHS Basaglar Kwikpen U-100 (Insulin Glargine,Hum.rec.anlog) 100 Unit/1 Ml Insuln.pen 35 Unit SQ DAILY Allergies Allergies: Coded Allergies: No Known Drug Allergies (Unverified , 06/03/13) ROS General: YES: Fatigue, Malaise, Appetite PSYCHOLOGICAL ROS: YES: Anxiety HEENT: YES: Heacaches Respiratory: YES: Cough, Orthopnea, Shortness of breath, SOB with excertion Cardiovascular: yes Orthopnea, yes Paroxysmal Noc. Dyspnea, yes Edema, yes Lt Headedness Gastrointestinal: Yes Constipation Genitourinary: YES Other (NOCTURIA) Musculoskeletal: Yes Muscular Weakness Neurological: Yes Weakness Skin: Yes Dry Skin Physical Exam General: Alert, Oriented X3, Cooperative, No acute distress, moderate distress HEENT: Atraumatic, PERRLA Lungs: Other (BASILAR RALES) Heart: Regular rate Abdomen: Normal bowel sounds, Soft, No tenderness Extremities: No clubbing Skin: No breakdown Neuro: Normal speech, Cranial nerves 3-12 NL Psych/Mental Status: Mental status NL, Mood NL MUSCULOSKELETAL: No joint tenderness, No deformity Vitals VITALS Vital Signs Date Time Temp Pulse Resp B/P (MAP) Pulse Ox O2 Delivery O2 Flow Rate FiO2 01/30/19 15:01 98.1 58 16 139/68 (91) 99 Nasal Cannula 4.0 98.1 Labs Labs Laboratory Tests Test 01/29/19 19:50 01/29/19 22:11 01/30/19 01:20 01/30/19 07:20 White Blood Count 8.7 x10^3/uL (4.0-11.0) 3.3 x10^3/uL (4.0-11.0) Red Blood Count 3.93 x10^6/uL (4.30-5.70) 3.83 x10^6/uL (4.30-5.70) Hemoglobin 11.2 g/dL (13.0-17.5) 10.8 g/dL (13.0-17.5) Hematocrit 33.3 % (39.0-53.0) 32.2 % (39.0-53.0) Mean Corpuscular Volume 85 fL (79-100) 84 fL (79-100) Mean Corpuscular Hemoglobin 28 pg (25-35) 28 pg (25-35) Mean Corpuscular Hemoglobin Concent 34 g/dL (31-37) 34 g/dL (31-37) Red Cell Distribution Width 14.7 % (11.5-14.5) 14.7 % (11.5-14.5) Platelet Count 285 x10^3/uL (140-400) 257 x10^3/uL (140-400) Neutrophils (%) (Auto) 71 % (31-73) 89 % (31-73) Lymphocytes (%) (Auto) 18 % (24-48) 9 % (24-48) Monocytes (%) (Auto) 9 % (0-9) 2 % (0-9) Eosinophils (%) (Auto) 1 % (0-3) 0 % (0-3) Basophils (%) (Auto) 1 % (0-3) 0 % (0-3) Neutrophils # (Auto) 6.2 x10^3/uL (1.8-7.7) 3.0 x10^3/uL (1.8-7.7) Lymphocytes # (Auto) 1.5 x10^3/uL (1.0-4.8) 0.3 x10^3/uL (1.0-4.8) Monocytes # (Auto) 0.8 x10^3/uL (0.0-1.1) 0.1 x10^3/uL (0.0-1.1) Eosinophils # (Auto) 0.1 x10^3/uL (0.0-0.7) 0.0 x10^3/uL (0.0-0.7) Basophils # (Auto) 0.1 x10^3/uL (0.0-0.2) 0.0 x10^3/uL (0.0-0.2) Prothrombin Time 13.8 SEC (11.7-14.0) Prothromb Time International Ratio 1.1 (0.8-1.1) Activated Partial Thromboplast Time 31 SEC (24-38) D-Dimer (Rashmi) 0.86 ug/mlFEU (0.00-0.50) Sodium Level 144 mmol/L (136-145) Potassium Level 4.1 mmol/L (3.5-5.1) Chloride Level 107 mmol/L (98-107) Carbon Dioxide Level 30 mmol/L (21-32) Anion Gap 7 (6-14) Blood Urea Nitrogen 46 mg/dL (8-26) Creatinine 2.5 mg/dL (0.7-1.3) Estimated GFR (Cockcroft-Gault) 25.1 BUN/Creatinine Ratio 18 (6-20) Glucose Level 117 mg/dL (70-99) Lactic Acid Level 0.9 mmol/L (0.4-2.0) Calcium Level 8.1 mg/dL (8.5-10.1) Magnesium Level 1.8 mg/dL (1.8-2.4) Total Bilirubin 0.3 mg/dL (0.2-1.0) Aspartate Amino Transf (AST/SGOT) 19 U/L (15-37) Alanine Aminotransferase (ALT/SGPT) 21 U/L (16-63) Alkaline Phosphatase 71 U/L (46-116) Creatine Kinase 84 U/L (39-308) Creatine Kinase MB (Mass) 1.2 ng/mL (0.0-3.6) Creatine Kinase MB Relative Index 1.4 % (0-4) Troponin I Quantitative 0.410 ng/mL (0.000-0.055) 0.278 ng/mL (0.000-0.055) 0.190 ng/mL (0.000-0.055) IW-Zdq-W-Type Natriuretic Peptide 32856 pg/mL (0-449) Total Protein 5.7 g/dL (6.4-8.2) Albumin 2.5 g/dL (3.4-5.0) Albumin/Globulin Ratio 0.8 (1.0-1.7) Procalcitonin 0.27 ng/mL (0.00-0.10) Thyroid Stimulating Hormone (TSH) 2.149 uIU/mL (0.358-3.74) Urine Opiates Screen Neg (NEG) Urine Methadone Screen Neg (NEG) Urine Barbiturates Neg (NEG) Urine Phencyclidine Screen Neg (NEG) Urine Amphetamine/Methamphetamine Neg (NEG) Urine Benzodiazepines Screen Neg (NEG) Urine Cocaine Screen Neg (NEG) Urine Cannabinoids Screen Neg (NEG) Urine Ethyl Alcohol Neg (NEG) Segmented Neutrophils % 90 % (35-66) Band Neutrophils % 4 % (0-9) Lymphocytes % 5 % (24-48) Monocytes % 1 % (0-10) Platelet Estimate Adequate (ADEQUATE) Large Platelets Few Anisocytosis Slight Test 01/30/19 08:09 01/30/19 11:51 Glucose (Fingerstick) 282 mg/dL (70-99) 307 mg/dL (70-99) Laboratory Tests Test 01/29/19 19:50 01/29/19 22:11 01/30/19 01:20 01/30/19 07:20 White Blood Count 8.7 x10^3/uL (4.0-11.0) 3.3 x10^3/uL (4.0-11.0) Red Blood Count 3.93 x10^6/uL (4.30-5.70) 3.83 x10^6/uL (4.30-5.70) Hemoglobin 11.2 g/dL (13.0-17.5) 10.8 g/dL (13.0-17.5) Hematocrit 33.3 % (39.0-53.0) 32.2 % (39.0-53.0) Mean Corpuscular Volume 85 fL (79-100) 84 fL (79-100) Mean Corpuscular Hemoglobin 28 pg (25-35) 28 pg (25-35) Mean Corpuscular Hemoglobin Concent 34 g/dL (31-37) 34 g/dL (31-37) Red Cell Distribution Width 14.7 % (11.5-14.5) 14.7 % (11.5-14.5) Platelet Count 285 x10^3/uL (140-400) 257 x10^3/uL (140-400) Neutrophils (%) (Auto) 71 % (31-73) 89 % (31-73) Lymphocytes (%) (Auto) 18 % (24-48) 9 % (24-48) Monocytes (%) (Auto) 9 % (0-9) 2 % (0-9) Eosinophils (%) (Auto) 1 % (0-3) 0 % (0-3) Basophils (%) (Auto) 1 % (0-3) 0 % (0-3) Neutrophils # (Auto) 6.2 x10^3/uL (1.8-7.7) 3.0 x10^3/uL (1.8-7.7) Lymphocytes # (Auto) 1.5 x10^3/uL (1.0-4.8) 0.3 x10^3/uL (1.0-4.8) Monocytes # (Auto) 0.8 x10^3/uL (0.0-1.1) 0.1 x10^3/uL (0.0-1.1) Eosinophils # (Auto) 0.1 x10^3/uL (0.0-0.7) 0.0 x10^3/uL (0.0-0.7) Basophils # (Auto) 0.1 x10^3/uL (0.0-0.2) 0.0 x10^3/uL (0.0-0.2) Prothrombin Time 13.8 SEC (11.7-14.0) Prothromb Time International Ratio 1.1 (0.8-1.1) Activated Partial Thromboplast Time 31 SEC (24-38) D-Dimer (Rashmi) 0.86 ug/mlFEU (0.00-0.50) Sodium Level 144 mmol/L (136-145) Potassium Level 4.1 mmol/L (3.5-5.1) Chloride Level 107 mmol/L (98-107) Carbon Dioxide Level 30 mmol/L (21-32) Anion Gap 7 (6-14) Blood Urea Nitrogen 46 mg/dL (8-26) Creatinine 2.5 mg/dL (0.7-1.3) Estimated GFR (Cockcroft-Gault) 25.1 BUN/Creatinine Ratio 18 (6-20) Glucose Level 117 mg/dL (70-99) Lactic Acid Level 0.9 mmol/L (0.4-2.0) Calcium Level 8.1 mg/dL (8.5-10.1) Magnesium Level 1.8 mg/dL (1.8-2.4) Total Bilirubin 0.3 mg/dL (0.2-1.0) Aspartate Amino Transf (AST/SGOT) 19 U/L (15-37) Alanine Aminotransferase (ALT/SGPT) 21 U/L (16-63) Alkaline Phosphatase 71 U/L (46-116) Creatine Kinase 84 U/L (39-308) Creatine Kinase MB (Mass) 1.2 ng/mL (0.0-3.6) Creatine Kinase MB Relative Index 1.4 % (0-4) Troponin I Quantitative 0.410 ng/mL (0.000-0.055) 0.278 ng/mL (0.000-0.055) 0.190 ng/mL (0.000-0.055) FW-Eyd-C-Type Natriuretic Peptide 09871 pg/mL (0-449) Total Protein 5.7 g/dL (6.4-8.2) Albumin 2.5 g/dL (3.4-5.0) Albumin/Globulin Ratio 0.8 (1.0-1.7) Procalcitonin 0.27 ng/mL (0.00-0.10) Thyroid Stimulating Hormone (TSH) 2.149 uIU/mL (0.358-3.74) Urine Opiates Screen Neg (NEG) Urine Methadone Screen Neg (NEG) Urine Barbiturates Neg (NEG) Urine Phencyclidine Screen Neg (NEG) Urine Amphetamine/Methamphetamine Neg (NEG) Urine Benzodiazepines Screen Neg (NEG) Urine Cocaine Screen Neg (NEG) Urine Cannabinoids Screen Neg (NEG) Urine Ethyl Alcohol Neg (NEG) Segmented Neutrophils % 90 % (35-66) Band Neutrophils % 4 % (0-9) Lymphocytes % 5 % (24-48) Monocytes % 1 % (0-10) Platelet Estimate Adequate (ADEQUATE) Large Platelets Few Anisocytosis Slight Test 01/30/19 08:09 01/30/19 11:51 Glucose (Fingerstick) 282 mg/dL (70-99) 307 mg/dL (70-99) Assessment/Plan Assessment/Plan IMP CKD STAGE 4 - CR ABOUT 3.0 HTN EMERGENCY CAD AND CM CHRONIC AFIB CHF-SYSTOLIC ACUTE AND CHRONIC HYPOXIC RESP FAILURE LE EDEMA OBESITY DM II NON COMPLIANCE PLAN ONGOING CARDIOLOGY EVALUATION PT REFUSING HEART CATH ATTEMPT TO DIURESE D/W PT AND THAT HE MAY NEED DIALYSIS SOON ROD PELAEZ MD Jan 30, 2019 15:32
--- NOTE | 2019-01-30 16:41 | NUR ---
SW following pt for dc planning. Chart reviewed and pt lives at home. PT/OT pending (on hold today). Will await for PT/OT recommendation to assess skilled needs.
[2019-01-30] MEDS: DOXYCYCLINE HYCLATE 100 MG TABLET PO SCH ×2 (17:47→21:37)
[2019-01-30] MEDS: FUROSEMIDE 40 MG/4 ML VIAL. IVP SCH ×2 (17:49→21:53)
[2019-01-30] MEDS: TAMSULOSIN 0.4 MG CAP.ER.24H. PO SCH (21:37)
[2019-01-30] MEDS: ATORVASTATIN CALCIUM 40 MG TABLET. PO SCH (21:37)
[2019-01-30] MEDS: INSULIN GLARGINE 300 UNITS/3 ML INSULN.PEN. SQ SCH (21:46)
[2019-01-31 03:27] VITALS: BP 169/73
--- NOTE | 2019-01-31 03:32 | CONS ---
DATE OF CONSULTATION: 01/30/2019 ATTENDING PHYSICIAN: Kenzie Crawley MD. REASON FOR CONSULTATION: The patient seen in pulmonary consultation at the request of Dr. Crawley for abnormal x-ray, decreased saturation. HISTORY OF PRESENT ILLNESS: The patient is 78-year-old with multiple comorbidities, type 2 diabetes, morbid obesity, hyperlipidemia and previous non-ST segment elevation myocardial infarction 4 months ago, tobacco dependence in remission, COPD, presented with increasing shortness of breath, cough began approximately a week ago. The patient states that he is checking his O2 saturations at home and they were in the 60s to 70s. He does not wear oxygen at home. He has never had a polysomnogram in the Emergency Department, his O2 saturation was 70, he was placed on 4 liters of oxygen supplementation. In addition, a chest x-ray was obtained. I reviewed the x-ray, there was a left lower lobe infiltrates and some stable bilateral effusions. There is also evidence of cardiomegaly. The patient does quit tobacco approximately 25-30 years ago and wears no oxygen at home. PAST MEDICAL HISTORY: Remarkable for type 2 diabetes, hyperlipidemia, hypertension, previous non-ST segment elevation myocardial infarction, renal failure, ____. PAST SURGICAL HISTORY: None. REVIEW OF SYSTEMS: As indicated above, otherwise, a 10-point system was reviewed and negative. He has had a previous echocardiogram revealing ejection fraction 55-60%, PA pressure was 48. He had a stress test back in 11/04/2018, which revealed no evidence of stress-induced EKG changes, there was abnormal perfusion study with the LAD territory. He had a cardiac catheterization revealing 3-vessel coronary artery disease. It was recommended that he continue aspirin, Plavix and aggressive medical therapy. There was a planned staged PCI of the LAD. ALLERGIES: No known drug allergies. PAST SURGICAL HISTORY: Status post arthroscopic surgery, cholecystectomy, tonsillectomy. SOCIAL HISTORY: He quit tobacco 25 years ago. FAMILY HISTORY: No family history of lung disorders. PHYSICAL EXAMINATION: GENERAL: Morbid obese individual in no respiratory distress. VITAL SIGNS: Current O2 sat was greater than 92% on 4 liters. HEENT: Eyes, sclerae were nonicteric. NECK: Jugular venous distention was not elevated. No lymphadenopathy. CHEST: Full expansion. LUNGS: Diminished breath sounds at the bases, some scattered rhonchi. CARDIOVASCULAR: Regular rate and rhythm with S1, S2. No S3. ABDOMEN: Soft, obese. EXTREMITIES: No clubbing, cyanosis. Minimal edema. NEUROLOGIC: The patient was awake, alert, following commands. A detailed neuro exam was not performed. LABORATORY DATA: White count was normal. Hemoglobin and hematocrit were noted. Electrolytes were noted. Glucose was elevated. BUN was elevated, creatinine was elevated. Troponin was elevated. Albumin was low. IMPRESSION: 1. Acute hypoxemic respiratory failure. 2. Dgbri-ex-nxwcrps diastolic heart failure. 3. Recent non-ST segment elevation myocardial infarction back in 10/2018. 4. Elevated troponin levels. 5. Coronary artery disease with previous coronary angiogram revealing 3-vessel coronary artery disease, status post percutaneous coronary intervention to the proximal circumflex and distal circumflex. 6. Morbid obesity. 7. Obstructive sleep apnea. 8. Hypertension. 9. Morbid obesity, BMI of 43.5. 10. Acute exacerbation of chronic obstructive pulmonary disease. PLAN: 1. Recommend continue diuresis. 2. Empiric antibiotics. 3. Outpatient polysomnogram. 4. Nocturnal desaturation study prior to discharge. 5. A 6-minute walk prior to discharge. 6. The patient instructed on the importance of weight reduction, avoiding processed foods I do appreciate the privilege in sharing in the patient's care. NHI FERNÁNDEZ MD DR: JUAN ANTONIO/tyler JOB#: [id number] / [id number]
[2019-01-31 04:25] LABS: CALCIUM 8.2 mg/dL (8.5-10.1); GFR 20.3; MAGNESIUM 1.8 mg/dL (1.8-2.4); PHOSPHORUS 4.3 mg/dL (2.6-4.7); POTASSIUM 4.3 mmol/L (3.5-5.1)
[2019-01-31] MEDS: FUROSEMIDE 40 MG/4 ML VIAL. IVP SCH ×3 (05:18→21:22)
[2019-01-31 07:00] VITALS: BP 165/67
[2019-01-31] MEDS: IPRATRPIUM/ALBUTEROL 0.5/2.5MG 3 ML NEBU. NEB SCH ×4 (07:43→19:47)
[2019-01-31] MEDS: INSULIN LISPRO 300 UNITS/3 ML VIAL. SQ SCH ×3 (08:00→17:00)
[2019-01-31] MEDS: NON FORMULARY ITEM (Patiromer Calcium Sorbitex (Veltassa) 8.4 GM) PO SCH (08:10)
[2019-01-31] MEDS: DOXYCYCLINE HYCLATE 100 MG TABLET PO SCH ×2 (08:21→21:20)
[2019-01-31] MEDS: ISOSORBIDE MONONITRATE ER 30 MG TAB.ER.24H PO SCH ×2 (08:22→10:13)
[2019-01-31] MEDS: ASPIRIN CHEWABLE 81 MG TABLET. PO SCH (08:22)
[2019-01-31] MEDS: amLODIPine BESYLATE 10 MG TABLET PO SCH (08:23)
[2019-01-31] MEDS: METOPROLOL TART IMMED RELEASE 25 MG TABLET. PO SCH ×2 (08:23→21:20)
[2019-01-31] MEDS: LISINOPRIL 20 MG TABLET PO SCH (08:24)
--- NOTE | 2019-01-31 10:24 | PDOC ---
PROGRESS NOTES Chief Complaint Chief Complaint 1. CHF, leg edema - 2. Hypoxic respi failure - sats 60s on arrival,ed 2,. Recent nSTEMi October 2018 - 3. 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 Obesity BMI 41 5. HTN emergency - Systolic 200s on arrival 6. CAD, a fib chronic stable History of Present Illness History of Present Illness NOt the best personality to deal with CREat 2.5 which i think is around his baseline BP still high REnal has inc lasix to 40 IV q8 from once a day HE has no inc soa or CP CAme from home, was prev at [facility] OP LHC/or ischemic work up planned before - cards also on board, known to Dr Armenta Otherwise he has no complaints HE has appt cards OP feb? PLAN: lasix 40 IV q8 Watch BMP closely PT.OT ISchemic work up per cards with renal fcn in mind FAll risk FULL CODE Vitals Vitals Vital Signs Date Time Temp Pulse Resp B/P (MAP) Pulse Ox O2 Delivery O2 Flow Rate FiO2 01/31/19 10:14 72 169/67 01/31/19 08:00 Nasal Cannula 4.0 01/31/19 07:44 96 01/31/19 07:00 97.6 18 97.6 Physical Exam General: Alert, Oriented X3, Cooperative, No acute distress, moderate distress Heart: Regular rate Lungs: Clear Abdomen: Normal bowel sounds, Soft, No tenderness Extremities: No clubbing Skin: No breakdown Labs LABS Laboratory Tests Test 01/30/19 11:51 01/30/19 17:30 01/30/19 21:41 01/31/19 03:30 Glucose (Fingerstick) 307 mg/dL (70-99) 145 mg/dL (70-99) 163 mg/dL (70-99) Sodium Level 141 mmol/L (136-145) Potassium Level 4.3 mmol/L (3.5-5.1) Chloride Level 105 mmol/L (98-107) Carbon Dioxide Level 28 mmol/L (21-32) Anion Gap 8 (6-14) Blood Urea Nitrogen 59 mg/dL (8-26) Creatinine 3.0 mg/dL (0.7-1.3) Estimated GFR (Cockcroft-Gault) 20.3 Glucose Level 139 mg/dL (70-99) Calcium Level 8.2 mg/dL (8.5-10.1) Phosphorus Level 4.3 mg/dL (2.6-4.7) Magnesium Level 1.8 mg/dL (1.8-2.4) Test 01/31/19 07:52 Glucose (Fingerstick) 117 mg/dL (70-99) Review of Systems Review of Systems no inc in soa, no cp, no abd pain, no n/v/d Assessment and Plan Assessmemt and Plan Problems Medical Problems: (1) A-fib Status: Chronic (2) CAD (coronary artery disease) Status: Chronic (3) CHF (congestive heart failure) Status: Chronic (4) Chronic kidney disease Status: Acute (5) Elevated troponin Status: Acute (6) Obesity Status: Chronic (7) Respiratory failure Status: Acute Comment Review of Relevant I have reviewed the following items kristin (where applicable) has been applied. Labs Laboratory Tests Test 01/29/19 19:50 01/29/19 22:11 01/30/19 01:20 01/30/19 07:20 White Blood Count 8.7 x10^3/uL (4.0-11.0) 3.3 x10^3/uL (4.0-11.0) Red Blood Count 3.93 x10^6/uL (4.30-5.70) 3.83 x10^6/uL (4.30-5.70) Hemoglobin 11.2 g/dL (13.0-17.5) 10.8 g/dL (13.0-17.5) Hematocrit 33.3 % (39.0-53.0) 32.2 % (39.0-53.0) Mean Corpuscular Volume 85 fL (79-100) 84 fL (79-100) Mean Corpuscular Hemoglobin 28 pg (25-35) 28 pg (25-35) Mean Corpuscular Hemoglobin Concent 34 g/dL (31-37) 34 g/dL (31-37) Red Cell Distribution Width 14.7 % (11.5-14.5) 14.7 % (11.5-14.5) Platelet Count 285 x10^3/uL (140-400) 257 x10^3/uL (140-400) Neutrophils (%) (Auto) 71 % (31-73) 89 % (31-73) Lymphocytes (%) (Auto) 18 % (24-48) 9 % (24-48) Monocytes (%) (Auto) 9 % (0-9) 2 % (0-9) Eosinophils (%) (Auto) 1 % (0-3) 0 % (0-3) Basophils (%) (Auto) 1 % (0-3) 0 % (0-3) Neutrophils # (Auto) 6.2 x10^3/uL (1.8-7.7) 3.0 x10^3/uL (1.8-7.7) Lymphocytes # (Auto) 1.5 x10^3/uL (1.0-4.8) 0.3 x10^3/uL (1.0-4.8) Monocytes # (Auto) 0.8 x10^3/uL (0.0-1.1) 0.1 x10^3/uL (0.0-1.1) Eosinophils # (Auto) 0.1 x10^3/uL (0.0-0.7) 0.0 x10^3/uL (0.0-0.7) Basophils # (Auto) 0.1 x10^3/uL (0.0-0.2) 0.0 x10^3/uL (0.0-0.2) Prothrombin Time 13.8 SEC (11.7-14.0) Prothromb Time International Ratio 1.1 (0.8-1.1) Activated Partial Thromboplast Time 31 SEC (24-38) D-Dimer (Rashmi) 0.86 ug/mlFEU (0.00-0.50) Sodium Level 144 mmol/L (136-145) Potassium Level 4.1 mmol/L (3.5-5.1) Chloride Level 107 mmol/L (98-107) Carbon Dioxide Level 30 mmol/L (21-32) Anion Gap 7 (6-14) Blood Urea Nitrogen 46 mg/dL (8-26) Creatinine 2.5 mg/dL (0.7-1.3) Estimated GFR (Cockcroft-Gault) 25.1 BUN/Creatinine Ratio 18 (6-20) Glucose Level 117 mg/dL (70-99) Lactic Acid Level 0.9 mmol/L (0.4-2.0) Calcium Level 8.1 mg/dL (8.5-10.1) Magnesium Level 1.8 mg/dL (1.8-2.4) Total Bilirubin 0.3 mg/dL (0.2-1.0) Aspartate Amino Transf (AST/SGOT) 19 U/L (15-37) Alanine Aminotransferase (ALT/SGPT) 21 U/L (16-63) Alkaline Phosphatase 71 U/L (46-116) Creatine Kinase 84 U/L (39-308) Creatine Kinase MB (Mass) 1.2 ng/mL (0.0-3.6) Creatine Kinase MB Relative Index 1.4 % (0-4) Troponin I Quantitative 0.410 ng/mL (0.000-0.055) 0.278 ng/mL (0.000-0.055) 0.190 ng/mL (0.000-0.055) JV-Tlq-B-Type Natriuretic Peptide 25553 pg/mL (0-449) Total Protein 5.7 g/dL (6.4-8.2) Albumin 2.5 g/dL (3.4-5.0) Albumin/Globulin Ratio 0.8 (1.0-1.7) Procalcitonin 0.27 ng/mL (0.00-0.10) Thyroid Stimulating Hormone (TSH) 2.149 uIU/mL (0.358-3.74) Urine Opiates Screen Neg (NEG) Urine Methadone Screen Neg (NEG) Urine Barbiturates Neg (NEG) Urine Phencyclidine Screen Neg (NEG) Urine Amphetamine/Methamphetamine Neg (NEG) Urine Benzodiazepines Screen Neg (NEG) Urine Cocaine Screen Neg (NEG) Urine Cannabinoids Screen Neg (NEG) Urine Ethyl Alcohol Neg (NEG) Segmented Neutrophils % 90 % (35-66) Band Neutrophils % 4 % (0-9) Lymphocytes % 5 % (24-48) Monocytes % 1 % (0-10) Platelet Estimate Adequate (ADEQUATE) Large Platelets Few Anisocytosis Slight Test 01/30/19 08:09 01/30/19 11:51 01/30/19 17:30 01/30/19 21:41 Glucose (Fingerstick) 282 mg/dL (70-99) 307 mg/dL (70-99) 145 mg/dL (70-99) 163 mg/dL (70-99) Test 01/31/19 03:30 01/31/19 07:52 Sodium Level 141 mmol/L (136-145) Potassium Level 4.3 mmol/L (3.5-5.1) Chloride Level 105 mmol/L (98-107) Carbon Dioxide Level 28 mmol/L (21-32) Anion Gap 8 (6-14) Blood Urea Nitrogen 59 mg/dL (8-26) Creatinine 3.0 mg/dL (0.7-1.3) Estimated GFR (Cockcroft-Gault) 20.3 Glucose Level 139 mg/dL (70-99) Calcium Level 8.2 mg/dL (8.5-10.1) Phosphorus Level 4.3 mg/dL (2.6-4.7) Magnesium Level 1.8 mg/dL (1.8-2.4) Glucose (Fingerstick) 117 mg/dL (70-99) Laboratory Tests Test 01/30/19 11:51 01/30/19 17:30 01/30/19 21:41 01/31/19 03:30 Glucose (Fingerstick) 307 mg/dL (70-99) 145 mg/dL (70-99) 163 mg/dL (70-99) Sodium Level 141 mmol/L (136-145) Potassium Level 4.3 mmol/L (3.5-5.1) Chloride Level 105 mmol/L (98-107) Carbon Dioxide Level 28 mmol/L (21-32) Anion Gap 8 (6-14) Blood Urea Nitrogen 59 mg/dL (8-26) Creatinine 3.0 mg/dL (0.7-1.3) Estimated GFR (Cockcroft-Gault) 20.3 Glucose Level 139 mg/dL (70-99) Calcium Level 8.2 mg/dL (8.5-10.1) Phosphorus Level 4.3 mg/dL (2.6-4.7) Magnesium Level 1.8 mg/dL (1.8-2.4) Test 01/31/19 07:52 Glucose (Fingerstick) 117 mg/dL (70-99) Microbiology 01/29/19 Blood Culture - Preliminary, Resulted NO GROWTH AFTER 1 DAY Medications Current Medications Albuterol/ Ipratropium (Duoneb) 3 ml 1X ONCE NEB Last administered on 01/29/19at 20:09; Start 8/13/19 at 19:45; Stop 01/29/19 at 19:46; Status DC Methylprednisolone Sodium Succinate (SOLU-Medrol 125MG VIAL) 125 mg 1X ONCE IV Last administered on 01/29/19at 20:02; Start 01/29/19 at 19:45; Stop 01/29/19 at 19:46; Status DC Hydralazine HCl (Apresoline Inj) 10 mg 1X ONCE IVP Last administered on 01/29/19at 20:02; Start 01/29/19 at 20:00; Stop 01/29/19 at 20:01; Status DC Amlodipine Besylate (Norvasc) 5 mg DAILY PO ; Start 01/30/19 at 09:00; Stop 01/30/19 at 09:09; Status DC Aspirin (Angeli Aspirin) 325 mg DAILY PO ; Start 01/30/19 at 09:00; Stop 01/30/19 at 10:28; Status DC Atorvastatin Calcium (Lipitor) 40 mg QHS PO Last administered on 01/30/19at 21:37; Start 01/29/19 at 21:00 Insulin Glargine (Lantus) 35 units DAILY SQ ; Start 01/30/19 at 09:00; Stop 01/30/19 at 10:28; Status DC Lisinopril (Prinivil) 40 mg DAILY PO Last administered on 01/31/19at 08:24; Start 01/30/19 at 09:00 Metoprolol Tartrate (Lopressor) 25 mg DAILY PO Last administered on 01/31/19at 08:24; Start 01/30/19 at 09:00 Metoprolol Tartrate (Lopressor) 12.5 mg QHS PO Last administered on 01/30/19at 21:37; Start 01/29/19 at 21:00 Vitamin D (Vitamin D3) 5,000 unit DAILY PO ; Start 01/30/19 at 09:00; Status Cancel Non-Formulary Medication (Patiromer Calcium Sorbitex (Veltassa)) 8.4 gm DAILY PO ; Start 01/30/19 at 09:00; Status UNV Fish Oil (Fish Oil) 1,000 mg DAILY PO ; Start 01/30/19 at 09:00; Status Cancel Insulin Human Lispro (HumaLOG) 0-9 UNITS TIDWMEALS SQ Last administered on 01/30/19at 13:00; Start 01/30/19 at 08:00 Dextrose (Dextrose 50%-Water Syringe) 12.5 gm PRN Q15MIN PRN IV SEE COMMENTS; Start 01/29/19 at 20:15 Dextrose 250 ml PRN Q15MIN PRN IV SEE COMMENTS; Start 01/29/19 at 20:15 Albuterol/ Ipratropium (Duoneb) 3 ml RTQID NEB Last administered on 01/31/19at 07:44; Start 01/30/19 at 08:00 Acetaminophen/ Codeine Phosphate (Tylenol #3) 1 tab PRN Q6HRS PRN PO PAIN; Start 01/29/19 at 20:15 Guaifenesin (Robitussin Dm) 10 ml PRN Q6HRS PRN PO COUGH; Start 01/29/19 at 20:15 Zolpidem Tartrate (Ambien) 2.5 mg PRN QHS PRN PO INSOMNIA; Start 01/29/19 at 20:15 Ondansetron HCl (Zofran) 4 mg PRN Q6HRS PRN IV NAUSEA/VOMITING; Start 01/29/19 at 20:15 Clonidine HCl (Catapres) 0.1 mg PRN Q1HR PRN PO HYPERTENSION Last administered on 01/30/19at 11:44; Start 01/29/19 at 20:15 Hydralazine HCl (Apresoline Inj) 10 mg PRN Q4HRS PRN IVP ELEVATED BP, SEE COMMENTS; Start 01/29/19 at 20:15 Furosemide (Lasix) 40 mg 1X ONCE IVP ; Start 01/29/19 at 21:00; Stop 01/29/19 at 20:53; Status DC Labetalol HCl (Normodyne Iv Push) 20 mg PRN Q2HR PRN IVP HYPERTENSION Last administered on 01/29/19at 23:24; Start 01/29/19 at 21:00 Nitroglycerin/ Dextrose 250 ml @ 0 mls/hr 1X ONCE IV ; Start 01/29/19 at 21:00; Stop 01/29/19 at 20:53; Status DC Furosemide (Lasix) 60 mg 1X ONCE IVP Last administered on 01/29/19at 21:24; Start 01/29/19 at 21:00; Stop 01/29/19 at 21:01; Status DC Ondansetron HCl (Zofran) 4 mg PRN Q8HRS PRN IV NAUSEA/VOMITING; Start 01/29/19 at 21:00; Stop 01/30/19 at 20:59; Status UNV Acetaminophen (Tylenol) 650 mg PRN Q4HRS PRN PO FEVER; Start 01/29/19 at 21:00; Stop 01/30/19 at 20:59; Status DC Amlodipine Besylate (Norvasc) 10 mg DAILY PO Last administered on 01/31/19 08:24; Start 01/31/19 at 09:00 Aspirin (Children'S Aspirin) 81 mg DAILY PO Last administered on 01/31/19 08:24; Start 01/31/19 at 09:00 Isosorbide Mononitrate (Imdur) 30 mg DAILY PO Last administered on 01/31/19 08:24; Start 01/30/19 at 11:00; Stop 01/31/19 at 09:11; Status DC Tamsulosin HCl (Flomax) 0.4 mg QHS PO Last administered on 01/30/19 21:37; Start 01/30/19 at 21:00 Insulin Glargine (Lantus) 35 units QHS SQ Last administered on 01/30/19 21:46; Start 01/30/19 at 21:00 Furosemide (Lasix) 80 mg 1X ONCE PO Last administered on 01/30/19 13:00; Start 01/30/19 at 12:00; Stop 01/30/19 at 12:01; Status DC Doxycycline Hyclate (Vibra-Tab) 100 mg BID PO Last administered on 01/31/19 08:24; Start 01/30/19 at 14:30 Furosemide (Lasix) 40 mg Q8HRS IVP Last administered on 01/31/19 05:18; Start 01/30/19 at 16:00 Isosorbide Mononitrate (Imdur) 60 mg DAILY PO Last administered on 01/31/19 10:14; Start 01/31/19 at 09:15; Status UNV Active Scripts Active Reported Isosorbide Mononitrate Er (Isosorbide Mononitrate) 30 Mg Tab.er.24h 30 Mg PO DAILY Flomax (Tamsulosin Hcl) 0.4 Mg Cap.er.24h 0.4 Mg PO QHS Aspirin 81 Mg Tab.chew 81 Mg PO DAILY Metoprolol Tartrate 25 Mg Tablet 12.5 Mg PO QHS Amlodipine Besylate 5 Mg Tablet 5 Mg PO QHS Metoprolol Tartrate 25 Mg Tablet 1 Tab PO DAILY Atorvastatin Calcium 40 Mg Tablet 1 Tab PO QHS Loreaglnaren Parra U-100 (Insulin Glargine,Hum.rec.anlog) 100 Unit/1 Ml Insuln.pen 35 Unit SQ DAILY Vitals/I & O Vital Sign - Last 24 Hours 01/30/19 01/30/19 01/30/19 01/30/19 11:00 11:44 11:44 11:44 Temp 98.7 98.7 Pulse 85 83 82 86 Resp 18 B/P (MAP) 190/89 (122) 218/86 218/86 218/86 Pulse Ox 97 O2 Delivery Nasal Cannula O2 Flow Rate 4.0 01/30/19 01/30/19 01/30/19 01/30/19 11:44 12:38 13:00 15:01 Temp 98.1 98.1 Pulse 83 58 Resp 16 B/P (MAP) 218/86 166/63 (97) 139/68 (91) Pulse Ox 99 O2 Delivery Nasal Cannula Nasal Cannula O2 Flow Rate 4.0 4.0 01/30/19 01/30/19 01/30/19 01/30/19 15:45 19:20 20:00 20:16 Temp 98.0 98.0 Pulse 63 Resp 18 B/P (MAP) 158/69 (98) Pulse Ox 97 98 O2 Delivery Nasal Cannula Nasal Cannula Nasal Cannula Nasal Cannula O2 Flow Rate 4.0 2.0 4.0 4.0 01/30/19 01/30/19 01/30/19 01/30/19 21:14 21:14 21:37 23:47 Temp 208.4 98.0 97.9 208.4 98.0 97.9 Pulse 63 63 63 66 Resp 18 B/P (MAP) 158/69 (98) 158/69 (98) 158/69 180/78 (112) Pulse Ox 98 98 97 O2 Delivery Nasal Cannula Nasal Cannula Nasal Cannula O2 Flow Rate 4.0 4.0 2.0 8/1501/31/19 01/31/19 01/31/19 03:27 07:00 07:44 08:00 Temp 97.7 97.6 97.7 97.6 Pulse 59 60 Resp 18 18 B/P (MAP) 169/73 (105) 165/67 (99) Pulse Ox 98 98 96 O2 Delivery Nasal Cannula Nasal Cannula Nasal Cannula Nasal Cannula O2 Flow Rate 2.0 2.0 3.0 4.0 01/31/19 01/31/19 01/31/19 01/31/19 08:24 08:24 08:24 08:24 Pulse 73 72 72 72 B/P (MAP) 169/67 169/67 169/67 169/67 01/31/19 10:14 Pulse 72 B/P (MAP) 169/67 Intake and Output 01/30/19 01/30/19 01/31/19 14:59 22:59 06:59 Intake Total 597 ml 300 ml Output Total 100 ml 500 ml 1250 ml Balance 497 ml -500 ml -950 ml DEVORAH EUBANKS MD Jan 31, 2019 10:24
[2019-01-31 11:00] VITALS: BP 149/66
--- NOTE | 2019-01-31 11:27 | NUR ---
SS following up with discharge planning. PT/OT currently on hold. Pt currently requiring oxygen. SS will await PT/OT evaluations and recommendations and will proceed accordingly with discharge planning.
--- NOTE | 2019-01-31 11:33 | PDOC ---
PULMONARY PROGRESS NOTES Subjective PT FEELS BETTER LESS SOA Vitals Vital Signs Date Time Temp Pulse Resp B/P (MAP) Pulse Ox O2 Delivery O2 Flow Rate FiO2 01/31/19 11:11 95 Nasal Cannula 3.0 01/31/19 11:00 97.7 51 18 149/66 (93) 97.7 ROS: No Nausea, No Chest Pain, No Abdominal Pain, No Increase Cough General: Alert, No acute distress Lungs: Clear Cardiovascular: S1, S2 Abdomen: Soft, Other (OBESE) Neuro Exam: Alert Extremities: Other (EDEMA) Skin: Warm Labs Laboratory Tests Test 01/29/19 19:50 01/29/19 22:11 01/30/19 01:20 01/30/19 07:20 White Blood Count 8.7 x10^3/uL (4.0-11.0) 3.3 x10^3/uL (4.0-11.0) Red Blood Count 3.93 x10^6/uL (4.30-5.70) 3.83 x10^6/uL (4.30-5.70) Hemoglobin 11.2 g/dL (13.0-17.5) 10.8 g/dL (13.0-17.5) Hematocrit 33.3 % (39.0-53.0) 32.2 % (39.0-53.0) Mean Corpuscular Volume 85 fL (79-100) 84 fL (79-100) Mean Corpuscular Hemoglobin 28 pg (25-35) 28 pg (25-35) Mean Corpuscular Hemoglobin Concent 34 g/dL (31-37) 34 g/dL (31-37) Red Cell Distribution Width 14.7 % (11.5-14.5) 14.7 % (11.5-14.5) Platelet Count 285 x10^3/uL (140-400) 257 x10^3/uL (140-400) Neutrophils (%) (Auto) 71 % (31-73) 89 % (31-73) Lymphocytes (%) (Auto) 18 % (24-48) 9 % (24-48) Monocytes (%) (Auto) 9 % (0-9) 2 % (0-9) Eosinophils (%) (Auto) 1 % (0-3) 0 % (0-3) Basophils (%) (Auto) 1 % (0-3) 0 % (0-3) Neutrophils # (Auto) 6.2 x10^3/uL (1.8-7.7) 3.0 x10^3/uL (1.8-7.7) Lymphocytes # (Auto) 1.5 x10^3/uL (1.0-4.8) 0.3 x10^3/uL (1.0-4.8) Monocytes # (Auto) 0.8 x10^3/uL (0.0-1.1) 0.1 x10^3/uL (0.0-1.1) Eosinophils # (Auto) 0.1 x10^3/uL (0.0-0.7) 0.0 x10^3/uL (0.0-0.7) Basophils # (Auto) 0.1 x10^3/uL (0.0-0.2) 0.0 x10^3/uL (0.0-0.2) Prothrombin Time 13.8 SEC (11.7-14.0) Prothromb Time International Ratio 1.1 (0.8-1.1) Activated Partial Thromboplast Time 31 SEC (24-38) D-Dimer (Rashmi) 0.86 ug/mlFEU (0.00-0.50) Sodium Level 144 mmol/L (136-145) Potassium Level 4.1 mmol/L (3.5-5.1) Chloride Level 107 mmol/L (98-107) Carbon Dioxide Level 30 mmol/L (21-32) Anion Gap 7 (6-14) Blood Urea Nitrogen 46 mg/dL (8-26) Creatinine 2.5 mg/dL (0.7-1.3) Estimated GFR (Cockcroft-Gault) 25.1 BUN/Creatinine Ratio 18 (6-20) Glucose Level 117 mg/dL (70-99) Lactic Acid Level 0.9 mmol/L (0.4-2.0) Calcium Level 8.1 mg/dL (8.5-10.1) Magnesium Level 1.8 mg/dL (1.8-2.4) Total Bilirubin 0.3 mg/dL (0.2-1.0) Aspartate Amino Transf (AST/SGOT) 19 U/L (15-37) Alanine Aminotransferase (ALT/SGPT) 21 U/L (16-63) Alkaline Phosphatase 71 U/L (46-116) Creatine Kinase 84 U/L (39-308) Creatine Kinase MB (Mass) 1.2 ng/mL (0.0-3.6) Creatine Kinase MB Relative Index 1.4 % (0-4) Troponin I Quantitative 0.410 ng/mL (0.000-0.055) 0.278 ng/mL (0.000-0.055) 0.190 ng/mL (0.000-0.055) OK-Hlj-J-Type Natriuretic Peptide 33223 pg/mL (0-449) Total Protein 5.7 g/dL (6.4-8.2) Albumin 2.5 g/dL (3.4-5.0) Albumin/Globulin Ratio 0.8 (1.0-1.7) Procalcitonin 0.27 ng/mL (0.00-0.10) Thyroid Stimulating Hormone (TSH) 2.149 uIU/mL (0.358-3.74) Urine Opiates Screen Neg (NEG) Urine Methadone Screen Neg (NEG) Urine Barbiturates Neg (NEG) Urine Phencyclidine Screen Neg (NEG) Urine Amphetamine/Methamphetamine Neg (NEG) Urine Benzodiazepines Screen Neg (NEG) Urine Cocaine Screen Neg (NEG) Urine Cannabinoids Screen Neg (NEG) Urine Ethyl Alcohol Neg (NEG) Segmented Neutrophils % 90 % (35-66) Band Neutrophils % 4 % (0-9) Lymphocytes % 5 % (24-48) Monocytes % 1 % (0-10) Platelet Estimate Adequate (ADEQUATE) Large Platelets Few Anisocytosis Slight Test 01/30/19 08:09 01/30/19 11:51 01/30/19 17:30 01/30/19 21:41 Glucose (Fingerstick) 282 mg/dL (70-99) 307 mg/dL (70-99) 145 mg/dL (70-99) 163 mg/dL (70-99) Test 01/31/19 03:30 01/31/19 07:52 Sodium Level 141 mmol/L (136-145) Potassium Level 4.3 mmol/L (3.5-5.1) Chloride Level 105 mmol/L (98-107) Carbon Dioxide Level 28 mmol/L (21-32) Anion Gap 8 (6-14) Blood Urea Nitrogen 59 mg/dL (8-26) Creatinine 3.0 mg/dL (0.7-1.3) Estimated GFR (Cockcroft-Gault) 20.3 Glucose Level 139 mg/dL (70-99) Calcium Level 8.2 mg/dL (8.5-10.1) Phosphorus Level 4.3 mg/dL (2.6-4.7) Magnesium Level 1.8 mg/dL (1.8-2.4) Glucose (Fingerstick) 117 mg/dL (70-99) Laboratory Tests Test 01/30/19 11:51 01/30/19 17:30 01/30/19 21:41 01/31/19 03:30 Glucose (Fingerstick) 307 mg/dL (70-99) 145 mg/dL (70-99) 163 mg/dL (70-99) Sodium Level 141 mmol/L (136-145) Potassium Level 4.3 mmol/L (3.5-5.1) Chloride Level 105 mmol/L (98-107) Carbon Dioxide Level 28 mmol/L (21-32) Anion Gap 8 (6-14) Blood Urea Nitrogen 59 mg/dL (8-26) Creatinine 3.0 mg/dL (0.7-1.3) Estimated GFR (Cockcroft-Gault) 20.3 Glucose Level 139 mg/dL (70-99) Calcium Level 8.2 mg/dL (8.5-10.1) Phosphorus Level 4.3 mg/dL (2.6-4.7) Magnesium Level 1.8 mg/dL (1.8-2.4) Test 01/31/19 07:52 Glucose (Fingerstick) 117 mg/dL (70-99) Medications Active Scripts Medications Dose Route/Sig Max Daily Dose Days Date Category Isosorbide Mononitrate Er (Isosorbide Mononitrate) 30 Mg Tab.er.24h 30 Mg PO DAILY 01/30/19 Reported Flomax (Tamsulosin Hcl) 0.4 Mg Cap.er.24h 0.4 Mg PO QHS 01/30/19 Reported Aspirin 81 Mg Tab.chew 81 Mg PO DAILY 01/30/19 Reported Metoprolol Tartrate 25 Mg Tablet 12.5 Mg PO QHS 10/19/18 Reported Amlodipine Besylate 5 Mg Tablet 5 Mg PO QHS 10/19/18 Reported Metoprolol Tartrate 25 Mg Tablet 1 Tab PO DAILY 10/19/18 Reported Atorvastatin Calcium 40 Mg Tablet 1 Tab PO QHS 10/19/18 Reported Suzanne Parra U-100 (Insulin Glargine,Hum.rec.anlog) 100 Unit/1 Ml Insuln.pen 35 Unit SQ DAILY 10/19/18 Reported Impression . IMPRESSION: 1. Acute hypoxemic respiratory failure. 2. [id number] diastolic heart failure. 3. Recent non-ST segment elevation myocardial infarction back in 10/2018. 4. Elevated troponin levels. 5. Coronary artery disease with previous coronary angiogram revealing 3-vessel coronary artery disease, status post percutaneous coronary intervention to the proximal circumflex and distal circumflex. 6. Morbid obesity. 7. Obstructive sleep apnea. 8. Hypertension. 9. Morbid obesity, BMI of 43.5. 10. Acute exacerbation of chronic obstructive pulmonary disease. 11. CKD/VIN Plan . PT FEELS BETTER FOLLOW CARD INPUT FOLLOW NEPHRO INPUT PT NOT KEEN ON IDEA OF DIALYSIS 1. Recommend continue diuresis. 2. Empiric antibiotics. 3. Outpatient polysomnogram. 4. Nocturnal desaturation study prior to discharge. 5. A 6-minute walk prior to discharge. 6. The patient instructed on the importance of weight reduction, avoiding processed foods NHI FERNÁNDEZ MD Jan 31, 2019 11:33
--- NOTE | 2019-01-31 11:49 | PDOC ---
Renal-Progress Notes Subjective Notes Notes LESS SOB History of Present Illness Hx of present illness FEELING BETTER Vitals Vitals Vital Signs Date Time Temp Pulse Resp B/P (MAP) Pulse Ox O2 Delivery O2 Flow Rate FiO2 01/31/19 11:11 95 Nasal Cannula 3.0 01/31/19 11:00 97.7 51 18 149/66 (93) 97.7 Weight Weight [ ] I.O. Intake and Output Intake and Output 01/31/19 07:00 Intake Total 897 ml Output Total 1850 ml Balance -953 ml Intake Oral 897 ml Output Urine Total 1850 ml Labs Labs Laboratory Tests Test 01/30/19 11:51 01/30/19 17:30 01/30/19 21:41 01/31/19 03:30 Glucose (Fingerstick) 307 mg/dL (70-99) 145 mg/dL (70-99) 163 mg/dL (70-99) Sodium Level 141 mmol/L (136-145) Potassium Level 4.3 mmol/L (3.5-5.1) Chloride Level 105 mmol/L (98-107) Carbon Dioxide Level 28 mmol/L (21-32) Anion Gap 8 (6-14) Blood Urea Nitrogen 59 mg/dL (8-26) Creatinine 3.0 mg/dL (0.7-1.3) Estimated GFR (Cockcroft-Gault) 20.3 Glucose Level 139 mg/dL (70-99) Calcium Level 8.2 mg/dL (8.5-10.1) Phosphorus Level 4.3 mg/dL (2.6-4.7) Magnesium Level 1.8 mg/dL (1.8-2.4) Test 01/31/19 07:52 Glucose (Fingerstick) 117 mg/dL (70-99) Micro Micro Microbiology 01/29/19 Blood Culture - Preliminary, Resulted NO GROWTH AFTER 1 DAY Review of Systems Constitutional: yes: alert, oriented Ears/Nose/Throat: Yes: no symptom reported Eyes: Yes: no symptom reported Pulmonary: Yes dyspnea Cardiovascular: Yes edema Gastrointestional: Yes: no symptom reported Genitourinary: Yes: no symptom reported Musculoskeletal: Yes: no symptom reported Skin: Yes no symptom reported Psychiatric/Neurological: Yes: no symptom reported Physical Exam General Appearance: no apparent distress Skin: warm, edema Respiratory: decreased breath sounds Heart: S1S2 Abdomen: soft Genitourinary: bladder flat Extremities: pulses present Neurology: alert, oriented Assessment Assessment IMP CKD STAGE 4 - CR ABOUT 3.0 HTN EMERGENCY CAD AND CM CHRONIC AFIB CHF-SYSTOLIC ACUTE AND CHRONIC HYPOXIC RESP FAILURE LE EDEMA OBESITY DM II NON COMPLIANCE PLAN ONGOING CARDIOLOGY EVALUATION PT REFUSING HEART CATH ATTEMPT TO DIURESE-CONT SCHEDULED IV LASIX D/W PT AND THAT HE MAY NEED DIALYSIS SOON ROD PELAEZ MD Jan 31, 2019 11:49
--- NOTE | 2019-01-31 12:23 | PDOC ---
CARDIO Progress Notes Date and Time Date of Service 01/31/19 Time of Evaluation 1211 Subjective Subjective: No Chest Pain, No shortness of breath, Other (Upset- thinks dialysis is being recommended for financial reasons.) Vitals Vitals Vital Signs Date Time Temp Pulse Resp B/P (MAP) Pulse Ox O2 Delivery O2 Flow Rate FiO2 01/31/19 11:11 95 Nasal Cannula 3.0 01/31/19 11:00 97.7 51 18 149/66 (93) 97.7 Weight Weight [ ] Input and Output Intake and Output Intake and Output 01/31/19 06:59 Intake Total 897 ml Output Total 1850 ml Balance -953 ml Intake Oral 897 ml Output Urine Total 1850 ml Laboratory Labs Laboratory Tests Test 01/30/19 17:30 01/30/19 21:41 01/31/19 03:30 01/31/19 07:52 Glucose (Fingerstick) 145 mg/dL (70-99) 163 mg/dL (70-99) 117 mg/dL (70-99) Sodium Level 141 mmol/L (136-145) Potassium Level 4.3 mmol/L (3.5-5.1) Chloride Level 105 mmol/L (98-107) Carbon Dioxide Level 28 mmol/L (21-32) Anion Gap 8 (6-14) Blood Urea Nitrogen 59 mg/dL (8-26) Creatinine 3.0 mg/dL (0.7-1.3) Estimated GFR (Cockcroft-Gault) 20.3 Glucose Level 139 mg/dL (70-99) Calcium Level 8.2 mg/dL (8.5-10.1) Phosphorus Level 4.3 mg/dL (2.6-4.7) Magnesium Level 1.8 mg/dL (1.8-2.4) Test 01/31/19 11:59 Glucose (Fingerstick) 100 mg/dL (70-99) Microbiology Micro Microbiology 01/29/19 Blood Culture - Preliminary, Resulted NO GROWTH AFTER 1 DAY Review of Systems Constitutional: yes: alert, oriented Ears/Nose/Throat: Yes: no symptom reported Eyes: Yes: no symptom reported Pulmonary: Yes dyspnea Cardiovascular: Yes edema Gastrointestional: Yes: no symptom reported Genitourinary: Yes: no symptom reported Musculoskeletal: Yes: no symptom reported Skin: Yes no symptom reported Psychiatric/Neurological: Yes: no symptom reported Physical Exam HEENT: Neck Supple W Full Motion Chest: Symmetric LUNGS: Clear to Auscultation Heart: S1S2, RRR Abdomen: Soft N/T Extremities: Other (2+ bialteral LE edema ) Neurology: alert, oriented, follow commands Assessment Assessment 1. Acute on chronic hypoxic respiratory failure; multifactorial with a/c CHF and AE COPD. Better compensated 2. Elevated troponin with LBBB, Trop peak at 0.4. Possibly type II, demand ischemic in the setting hypoxia, accelerated HTN, and VIN/CKD. CP free. 3. Acute on chronic diastolic HF 4. Accelerated hypertension; remains elevated. 5. CAD; PCI 3 stents in the past as above. Recent abnormal stress test. 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 nephrology following. 7. Hyperlipidemia 8. Diabetes, II 9. DM2 10. Morbid obesity, debility Recommendations Mild diuresis Add hydralazine for BP control Consider cath if/when HD is initiated Continue secondary prevention measures. Lung optimization as per pulmonary Follow renal recommendations SALLY ARITA APRN Jan 31, 2019 12:23
--- NOTE | 2019-01-31 14:42 | NUR ---
SS following up with discharge planning. PT/OT recommended home healthcare at discharge. Nurse navigator met with pt to discuss home healthcare. Pt reported that he has used [facility], ; fax [phone], in the past and would prefer to use [facility] at discharge. Pt's RN notified.
[2019-01-31 15:00] VITALS: BP 135/56
[2019-01-31 19:00] VITALS: BP 177/66
[2019-01-31] MEDS: LACTOBACILLUS RHAMNOSUS GG 1 CAPSULE. PO SCH (21:19)
[2019-01-31] MEDS: TAMSULOSIN 0.4 MG CAP.ER.24H. PO SCH (21:19)
[2019-01-31] MEDS: ATORVASTATIN CALCIUM 40 MG TABLET. PO SCH (21:21)
[2019-01-31] MEDS: INSULIN GLARGINE 300 UNITS/3 ML INSULN.PEN. SQ SCH (21:29)
[2019-01-31 23:27] VITALS: BP 166/66
[2019-02-01] VITALS (7 sets, daily range): BP systolic 126–191; BP diastolic 52–94
[2019-02-01] MEDS: hydrALAZINE 20 MG/ML VIAL. IVP PRN (03:30)
[2019-02-01 05:43] LABS: CALCIUM 8.3 mg/dL (8.5-10.1); CREATININE 3.5 mg/dL (0.7-1.3); POTASSIUM 4.3 mmol/L (3.5-5.1)
[2019-02-01 05:46] LABS: MAGNESIUM 1.8 mg/dL (1.8-2.4); PHOSPHORUS 4.5 mg/dL (2.6-4.7)
[2019-02-01] MEDS: FUROSEMIDE 40 MG/4 ML VIAL. IVP SCH ×4 (06:18→21:27)
[2019-02-01] MEDS ORDERED: IPRATRPIUM/ALBUTEROL 0.5/2.5MG 3 ML NEBU. ONE (07:07)
[2019-02-01] MEDS: INSULIN LISPRO 300 UNITS/3 ML VIAL. SQ SCH ×3 (08:00→17:00)
[2019-02-01] MEDS: IPRATRPIUM/ALBUTEROL 0.5/2.5MG 3 ML NEBU. NEB SCH ×4 (08:20→19:39)
[2019-02-01] MEDS: amLODIPine BESYLATE 10 MG TABLET PO SCH (08:37)
[2019-02-01] MEDS: METOPROLOL TART IMMED RELEASE 25 MG TABLET. PO SCH ×2 (08:38→21:27)
[2019-02-01] MEDS: LISINOPRIL 20 MG TABLET PO SCH (08:38)
[2019-02-01] MEDS: DOXYCYCLINE HYCLATE 100 MG TABLET PO SCH ×2 (08:39→21:27)
[2019-02-01] MEDS: ASPIRIN CHEWABLE 81 MG TABLET. PO SCH (08:39)
[2019-02-01] MEDS: LACTOBACILLUS RHAMNOSUS GG 1 CAPSULE. PO SCH ×2 (08:39→21:27)
[2019-02-01] MEDS: ISOSORBIDE MONONITRATE ER 30 MG TAB.ER.24H PO SCH (08:41)
--- NOTE | 2019-02-01 08:52 | PDOC ---
PULMONARY PROGRESS NOTES Subjective NO NEW COMPLAINTS PT FEELS BETTER LESS SOA Vitals Vital Signs Date Time Temp Pulse Resp B/P (MAP) Pulse Ox O2 Delivery O2 Flow Rate FiO2 02/01/19 08:43 82 145/66 02/01/19 08:20 93 Nasal Cannula 3.0 02/01/19 07:00 98.3 18 98.3 ROS: No Nausea, No Chest Pain, No Abdominal Pain, No Increase Cough General: Alert, No acute distress Lungs: Clear Cardiovascular: S1, S2 Abdomen: Soft, Other (OBESE) Neuro Exam: Alert Extremities: Other (EDEMA) Skin: Warm Labs Laboratory Tests Test 01/30/19 11:51 01/30/19 17:30 01/30/19 21:41 01/31/19 03:30 Glucose (Fingerstick) 307 mg/dL (70-99) 145 mg/dL (70-99) 163 mg/dL (70-99) Sodium Level 141 mmol/L (136-145) Potassium Level 4.3 mmol/L (3.5-5.1) Chloride Level 105 mmol/L (98-107) Carbon Dioxide Level 28 mmol/L (21-32) Anion Gap 8 (6-14) Blood Urea Nitrogen 59 mg/dL (8-26) Creatinine 3.0 mg/dL (0.7-1.3) Estimated GFR (Cockcroft-Gault) 20.3 Glucose Level 139 mg/dL (70-99) Calcium Level 8.2 mg/dL (8.5-10.1) Phosphorus Level 4.3 mg/dL (2.6-4.7) Magnesium Level 1.8 mg/dL (1.8-2.4) Test 01/31/19 07:52 01/31/19 11:59 01/31/19 17:03 01/31/19 21:18 Glucose (Fingerstick) 117 mg/dL (70-99) 100 mg/dL (70-99) 128 mg/dL (70-99) 146 mg/dL (70-99) Test 02/01/19 05:00 02/01/19 07:37 Sodium Level 141 mmol/L (136-145) Potassium Level 4.3 mmol/L (3.5-5.1) Chloride Level 103 mmol/L (98-107) Carbon Dioxide Level 29 mmol/L (21-32) Anion Gap 9 (6-14) Blood Urea Nitrogen 63 mg/dL (8-26) Creatinine 3.5 mg/dL (0.7-1.3) Estimated GFR (Cockcroft-Gault) 17.0 Glucose Level 126 mg/dL (70-99) Calcium Level 8.3 mg/dL (8.5-10.1) Phosphorus Level 4.5 mg/dL (2.6-4.7) Magnesium Level 1.8 mg/dL (1.8-2.4) Glucose (Fingerstick) 137 mg/dL (70-99) Laboratory Tests Test 01/31/19 11:59 01/31/19 17:03 01/31/19 21:18 02/01/19 05:00 Glucose (Fingerstick) 100 mg/dL (70-99) 128 mg/dL (70-99) 146 mg/dL (70-99) Sodium Level 141 mmol/L (136-145) Potassium Level 4.3 mmol/L (3.5-5.1) Chloride Level 103 mmol/L (98-107) Carbon Dioxide Level 29 mmol/L (21-32) Anion Gap 9 (6-14) Blood Urea Nitrogen 63 mg/dL (8-26) Creatinine 3.5 mg/dL (0.7-1.3) Estimated GFR (Cockcroft-Gault) 17.0 Glucose Level 126 mg/dL (70-99) Calcium Level 8.3 mg/dL (8.5-10.1) Phosphorus Level 4.5 mg/dL (2.6-4.7) Magnesium Level 1.8 mg/dL (1.8-2.4) Test 02/01/19 07:37 Glucose (Fingerstick) 137 mg/dL (70-99) Medications Active Scripts Medications Dose Route/Sig Max Daily Dose Days Date Category Isosorbide Mononitrate Er (Isosorbide Mononitrate) 30 Mg Tab.er.24h 30 Mg PO DAILY 01/30/19 Reported Flomax (Tamsulosin Hcl) 0.4 Mg Cap.er.24h 0.4 Mg PO QHS 01/30/19 Reported Aspirin 81 Mg Tab.chew 81 Mg PO DAILY 01/30/19 Reported Metoprolol Tartrate 25 Mg Tablet 12.5 Mg PO QHS 10/19/18 Reported Amlodipine Besylate 5 Mg Tablet 5 Mg PO QHS 10/19/18 Reported Metoprolol Tartrate 25 Mg Tablet 1 Tab PO DAILY 10/19/18 Reported Atorvastatin Calcium 40 Mg Tablet 1 Tab PO QHS 10/19/18 Reported Suzanne Parra U-100 (Insulin Glargine,Hum.rec.anlog) 100 Unit/1 Ml Insuln.pen 35 Unit SQ DAILY 10/19/18 Reported Impression . IMPRESSION: 1. Acute hypoxemic respiratory failure. 2. Hnywq-he-haawvkw diastolic heart failure. 3. Recent non-ST segment elevation myocardial infarction back in 10/2018. 4. Elevated troponin levels. 5. Coronary artery disease with previous coronary angiogram revealing 3-vessel coronary artery disease, status post percutaneous coronary intervention to the proximal circumflex and distal circumflex. 6. Morbid obesity. 7. Obstructive sleep apnea. 8. Hypertension. 9. Morbid obesity, BMI of 43.5. 10. Acute exacerbation of chronic obstructive pulmonary disease. 11. CKD/VIN Plan . POSSIBLE HD IN FUTURE PER DR PELAEZ PT FEELS BETTER FOLLOW CARD INPUT NHI FERNÁNDEZ MD Feb 01, 2019 08:52
[2019-02-01] MEDS: NON FORMULARY ITEM (Patiromer Calcium Sorbitex (Veltassa) 8.4 GM) PO SCH (09:00)
--- NOTE | 2019-02-01 11:25 | PDOC ---
PROGRESS NOTES Chief Complaint Chief Complaint 1. CHF, leg edema - 2. Hypoxic respi failure - sats 60s on arrival,ed 2,. Recent nSTEMi October 2018 - 3. CKD stage 4 - GFR 25 - known to renal service - MIGHT NEED HD 4. Obesity BMI 41 5. HTN emergency - Systolic 200s on arrival 6. CAD, a fib chronic stable History of Present Illness History of Present Illness NOt the best personality to deal with Creat up to 3.5 from 2.0 BP high-jagdeep DOES NOT WANT TO TALK ABOUT HD REnal: lasix to 40 IV q8 from once a day BNow refusing LHC, cards planning LHC after initiation HD HE has no inc soa or CP CAme from home, was prev at [facility] being referred to [facility]? PLAN: lasix 40 IV q8 Watch BMP closely HD plans initiation, but has not consented to HD cath insertion yet PT.OT LHC per cards with renal fcn in mind/after HD FAll risk FULL CODE SNu referral in the works Vitals Vitals Vital Signs Date Time Temp Pulse Resp B/P (MAP) Pulse Ox O2 Delivery O2 Flow Rate FiO2 02/01/19 08:43 82 145/66 02/01/19 08:20 93 Nasal Cannula 3.0 02/01/19 07:00 98.3 18 98.3 Physical Exam General: Alert, Oriented X3, Cooperative, No acute distress, moderate distress Heart: Regular rate Lungs: Clear Abdomen: Normal bowel sounds, Soft, No tenderness Extremities: No clubbing Skin: No breakdown Labs LABS Laboratory Tests Test 01/31/19 11:59 01/31/19 17:03 01/31/19 21:18 02/01/19 05:00 Glucose (Fingerstick) 100 mg/dL (70-99) 128 mg/dL (70-99) 146 mg/dL (70-99) Sodium Level 141 mmol/L (136-145) Potassium Level 4.3 mmol/L (3.5-5.1) Chloride Level 103 mmol/L (98-107) Carbon Dioxide Level 29 mmol/L (21-32) Anion Gap 9 (6-14) Blood Urea Nitrogen 63 mg/dL (8-26) Creatinine 3.5 mg/dL (0.7-1.3) Estimated GFR (Cockcroft-Gault) 17.0 Glucose Level 126 mg/dL (70-99) Calcium Level 8.3 mg/dL (8.5-10.1) Phosphorus Level 4.5 mg/dL (2.6-4.7) Magnesium Level 1.8 mg/dL (1.8-2.4) Test 02/01/19 07:37 Glucose (Fingerstick) 137 mg/dL (70-99) Review of Systems Review of Systems no cp, no soa, no headache, faisal bd pain, no emesis Assessment and Plan Assessmemt and Plan Problems Medical Problems: (1) A-fib Status: Chronic (2) CAD (coronary artery disease) Status: Chronic (3) CHF (congestive heart failure) Status: Chronic (4) Chronic kidney disease Status: Acute (5) Elevated troponin Status: Acute (6) Obesity Status: Chronic (7) Respiratory failure Status: Acute Comment Review of Relevant I have reviewed the following items kristin (where applicable) has been applied. Labs Laboratory Tests Test 01/30/19 11:51 01/30/19 17:30 01/30/19 21:41 01/31/19 03:30 Glucose (Fingerstick) 307 mg/dL (70-99) 145 mg/dL (70-99) 163 mg/dL (70-99) Sodium Level 141 mmol/L (136-145) Potassium Level 4.3 mmol/L (3.5-5.1) Chloride Level 105 mmol/L (98-107) Carbon Dioxide Level 28 mmol/L (21-32) Anion Gap 8 (6-14) Blood Urea Nitrogen 59 mg/dL (8-26) Creatinine 3.0 mg/dL (0.7-1.3) Estimated GFR (Cockcroft-Gault) 20.3 Glucose Level 139 mg/dL (70-99) Calcium Level 8.2 mg/dL (8.5-10.1) Phosphorus Level 4.3 mg/dL (2.6-4.7) Magnesium Level 1.8 mg/dL (1.8-2.4) Test 01/31/19 07:52 01/31/19 11:59 01/31/19 17:03 01/31/19 21:18 Glucose (Fingerstick) 117 mg/dL (70-99) 100 mg/dL (70-99) 128 mg/dL (70-99) 146 mg/dL (70-99) Test 02/01/19 05:00 02/01/19 07:37 Sodium Level 141 mmol/L (136-145) Potassium Level 4.3 mmol/L (3.5-5.1) Chloride Level 103 mmol/L (98-107) Carbon Dioxide Level 29 mmol/L (21-32) Anion Gap 9 (6-14) Blood Urea Nitrogen 63 mg/dL (8-26) Creatinine 3.5 mg/dL (0.7-1.3) Estimated GFR (Cockcroft-Gault) 17.0 Glucose Level 126 mg/dL (70-99) Calcium Level 8.3 mg/dL (8.5-10.1) Phosphorus Level 4.5 mg/dL (2.6-4.7) Magnesium Level 1.8 mg/dL (1.8-2.4) Glucose (Fingerstick) 137 mg/dL (70-99) Laboratory Tests Test 01/31/19 11:59 01/31/19 17:03 01/31/19 21:18 02/01/19 05:00 Glucose (Fingerstick) 100 mg/dL (70-99) 128 mg/dL (70-99) 146 mg/dL (70-99) Sodium Level 141 mmol/L (136-145) Potassium Level 4.3 mmol/L (3.5-5.1) Chloride Level 103 mmol/L (98-107) Carbon Dioxide Level 29 mmol/L (21-32) Anion Gap 9 (6-14) Blood Urea Nitrogen 63 mg/dL (8-26) Creatinine 3.5 mg/dL (0.7-1.3) Estimated GFR (Cockcroft-Gault) 17.0 Glucose Level 126 mg/dL (70-99) Calcium Level 8.3 mg/dL (8.5-10.1) Phosphorus Level 4.5 mg/dL (2.6-4.7) Magnesium Level 1.8 mg/dL (1.8-2.4) Test 02/01/19 07:37 Glucose (Fingerstick) 137 mg/dL (70-99) Microbiology 01/29/19 Blood Culture - Preliminary, Resulted NO GROWTH AFTER 2 DAYS Medications Current Medications Albuterol/ Ipratropium (Duoneb) 3 ml 1X ONCE NEB Last administered on 01/29/19at 20:09; Start 01/29/19 at 19:45; Stop 01/29/19 at 19:46; Status DC Methylprednisolone Sodium Succinate (SOLU-Medrol 125MG VIAL) 125 mg 1X ONCE IV Last administered on 01/29/19at 20:02; Start 01/29/19 at 19:45; Stop 01/29/19 at 19:46; Status DC Hydralazine HCl (Apresoline Inj) 10 mg 1X ONCE IVP Last administered on 01/29/19at 20:02; Start 01/29/19 at 20:00; Stop 01/29/19 at 20:01; Status DC Amlodipine Besylate (Norvasc) 5 mg DAILY PO ; Start 01/30/19 at 09:00; Stop 01/30/19 at 09:09; Status DC Aspirin (Angeli Aspirin) 325 mg DAILY PO ; Start 01/30/19 at 09:00; Stop 01/30/19 at 10:28; Status DC Atorvastatin Calcium (Lipitor) 40 mg QHS PO Last administered on 01/31/19at 21:29; Start 01/29/19 at 21:00 Insulin Glargine (Lantus) 35 units DAILY SQ ; Start 01/30/19 at 09:00; Stop 01/30/19 at 10:28; Status DC Lisinopril (Prinivil) 40 mg DAILY PO Last administered on 02/01/19at 08:43; Start 01/30/19 at 09:00 Metoprolol Tartrate (Lopressor) 25 mg DAILY PO Last administered on 02/01/19at 08:43; Start 01/30/19 at 09:00 Metoprolol Tartrate (Lopressor) 12.5 mg QHS PO Last administered on 01/31/19 21:29; Start 01/29/19 at 21:00 Vitamin D (Vitamin D3) 5,000 unit DAILY PO ; Start 01/30/19 at 09:00; Status Cancel Non-Formulary Medication (Patiromer Calcium Sorbitex (Veltassa)) 8.4 gm DAILY PO ; Start 01/30/19 at 09:00; Status UNV Fish Oil (Fish Oil) 1,000 mg DAILY PO ; Start 01/30/19 at 09:00; Status Cancel Insulin Human Lispro (HumaLOG) 0-9 UNITS TIDWMEALS SQ Last administered on 01/30/19at 13:00; Start 01/30/19 at 08:00 Dextrose (Dextrose 50%-Water Syringe) 12.5 gm PRN Q15MIN PRN IV SEE COMMENTS; Start 01/29/19 at 20:15 Dextrose 250 ml PRN Q15MIN PRN IV SEE COMMENTS; Start 01/29/19 at 20:15 Albuterol/ Ipratropium (Duoneb) 3 ml RTQID NEB Last administered on 02/01/19at 08:20; Start 01/30/19 at 08:00 Acetaminophen/ Codeine Phosphate (Tylenol #3) 1 tab PRN Q6HRS PRN PO PAIN; Start 01/29/19 at 20:15 Guaifenesin (Robitussin Dm) 10 ml PRN Q6HRS PRN PO COUGH; Start 01/29/19 at 20:15 Zolpidem Tartrate (Ambien) 2.5 mg PRN QHS PRN PO INSOMNIA; Start 01/29/19 at 20:15 Ondansetron HCl (Zofran) 4 mg PRN Q6HRS PRN IV NAUSEA/VOMITING; Start 01/29/19 at 20:15 Clonidine HCl (Catapres) 0.1 mg PRN Q1HR PRN PO HYPERTENSION Last administered on 01/30/19at 11:44; Start 01/29/19 at 20:15 Hydralazine HCl (Apresoline Inj) 10 mg PRN Q4HRS PRN IVP ELEVATED BP, SEE COMMENTS Last administered on 02/01/19at 03:30; Start 01/29/19 at 20:15 Furosemide (Lasix) 40 mg 1X ONCE IVP ; Start 01/29/19 at 21:00; Stop 01/29/19 at 20:53; Status DC Labetalol HCl (Normodyne Iv Push) 20 mg PRN Q2HR PRN IVP HYPERTENSION Last administered on 01/29/19at 23:24; Start 01/29/19 at 21:00 Nitroglycerin/ Dextrose 250 ml @ 0 mls/hr 1X ONCE IV ; Start 01/29/19 at 21:00; Stop 01/29/19 at 20:53; Status DC Furosemide (Lasix) 60 mg 1X ONCE IVP Last administered on 01/29/19 21:24; Start 01/29/19 at 21:00; Stop 01/29/19 at 21:01; Status DC Ondansetron HCl (Zofran) 4 mg PRN Q8HRS PRN IV NAUSEA/VOMITING; Start 01/29/19 at 21:00; Stop 01/30/19 at 20:59; Status UNV Acetaminophen (Tylenol) 650 mg PRN Q4HRS PRN PO FEVER; Start 01/29/19 at 21:00; Stop 01/30/19 at 20:59; Status DC Amlodipine Besylate (Norvasc) 10 mg DAILY PO Last administered on 02/01/19 08:43; Start 01/31/19 at 09:00 Aspirin (Children'S Aspirin) 81 mg DAILY PO Last administered on 02/01/19 08:43; Start 01/31/19 at 09:00 Isosorbide Mononitrate (Imdur) 30 mg DAILY PO Last administered on 01/31/19 08:24; Start 01/30/19 at 11:00; Stop 01/31/19 at 09:11; Status DC Tamsulosin HCl (Flomax) 0.4 mg QHS PO Last administered on 01/31/19 21:29; Start 01/30/19 at 21:00 Insulin Glargine (Lantus) 35 units QHS SQ Last administered on 01/31/19 21:29; Start 01/30/19 at 21:00 Furosemide (Lasix) 80 mg 1X ONCE PO Last administered on 01/30/19 13:00; Start 01/30/19 at 12:00; Stop 01/30/19 at 12:01; Status DC Doxycycline Hyclate (Vibra-Tab) 100 mg BID PO Last administered on 02/01/19 08:43; Start 01/30/19 at 14:30 Furosemide (Lasix) 40 mg Q8HRS IVP Last administered on 02/01/19 11:14; Start 01/30/19 at 16:00 Isosorbide Mononitrate (Imdur) 60 mg DAILY PO Last administered on 02/01/19 08:43; Start 01/31/19 at 09:15 Lactobacillus Rhamnosus (Culturelle) 1 cap BID PO Last administered on 8/16/19at 08:43; Start 01/31/19 at 21:00 Albuterol/ Ipratropium (Duoneb) 3 ml STK-MED ONCE .ROUTE ; Start 02/01/19 at 07:07; Stop 02/01/19 at 07:07; Status DC Active Scripts Active Reported Isosorbide Mononitrate Er (Isosorbide Mononitrate) 30 Mg Tab.er.24h 30 Mg PO DAILY Flomax (Tamsulosin Hcl) 0.4 Mg Cap.er.24h 0.4 Mg PO QHS Aspirin 81 Mg Tab.chew 81 Mg PO DAILY Metoprolol Tartrate 25 Mg Tablet 12.5 Mg PO QHS Amlodipine Besylate 5 Mg Tablet 5 Mg PO QHS Metoprolol Tartrate 25 Mg Tablet 1 Tab PO DAILY Atorvastatin Calcium 40 Mg Tablet 1 Tab PO QHS Loreaglnaren Parra U-100 (Insulin Glargine,Hum.rec.anlog) 100 Unit/1 Ml Insuln.pen 35 Unit SQ DAILY Vitals/I & O Vital Sign - Last 24 Hours 01/31/19 01/31/19 01/31/19 01/31/19 15:00 16:05 19:00 19:43 Temp 98.0 97.7 98.0 97.7 Pulse 63 76 Resp 18 18 B/P (MAP) 135/56 (82) 177/66 (103) Pulse Ox 95 95 95 O2 Delivery Nasal Cannula Nasal Cannula Nasal Cannula Nasal Cannula O2 Flow Rate 2.0 3.0 2.0 2.0 01/31/19 01/31/19 01/31/19 02/01/19 19:48 21:29 23:27 03:24 Temp 97.4 97.9 97.4 97.9 Pulse 86 71 79 Resp 20 18 B/P (MAP) 177/66 166/66 (99) 191/94 (126) Pulse Ox 95 96 O2 Delivery Nasal Cannula Nasal Cannula Nasal Cannula O2 Flow Rate 3.0 2.0 94.0 02/01/19 02/01/19 02/01/19 02/01/19 03:30 07:00 08:20 08:43 Temp 98.3 98.3 Pulse 79 82 82 Resp 18 B/P (MAP) 191/94 145/66 (92) 145/66 Pulse Ox 96 93 O2 Delivery Nasal Cannula Nasal Cannula O2 Flow Rate 2.0 3.0 02/01/19 02/01/19 02/01/19 08:43 08:43 08:43 Pulse 82 82 82 B/P (MAP) 145/66 145/66 145/66 Intake and Output 01/31/19 01/31/19 02/01/19 15:00 23:00 07:00 Intake Total 480 ml Output Total 450 ml 500 ml 1325 ml Balance -450 ml -500 ml -845 ml DEVORAH EUBANKS MD Feb 01, 2019 11:25
--- NOTE | 2019-02-01 12:00 | PDOC ---
Renal-Progress Notes Subjective Notes Notes NO NEW COMPLAINTS History of Present Illness Hx of present illness STABLE Vitals Vitals Vital Signs Date Time Temp Pulse Resp B/P (MAP) Pulse Ox O2 Delivery O2 Flow Rate FiO2 02/01/19 11:00 97.7 60 18 126/52 (76) 93 Nasal Cannula 2.0 97.7 Weight Weight [ ] I.O. Intake and Output Intake and Output 02/01/19 07:00 Intake Total 480 ml Output Total 2275 ml Balance -1795 ml Intake Oral 480 ml Output Urine Total 2275 ml # Voids 3 Labs Labs Laboratory Tests Test 01/31/19 17:03 01/31/19 21:18 02/01/19 05:00 02/01/19 07:37 Glucose (Fingerstick) 128 mg/dL (70-99) 146 mg/dL (70-99) 137 mg/dL (70-99) Sodium Level 141 mmol/L (136-145) Potassium Level 4.3 mmol/L (3.5-5.1) Chloride Level 103 mmol/L (98-107) Carbon Dioxide Level 29 mmol/L (21-32) Anion Gap 9 (6-14) Blood Urea Nitrogen 63 mg/dL (8-26) Creatinine 3.5 mg/dL (0.7-1.3) Estimated GFR (Cockcroft-Gault) 17.0 Glucose Level 126 mg/dL (70-99) Calcium Level 8.3 mg/dL (8.5-10.1) Phosphorus Level 4.5 mg/dL (2.6-4.7) Magnesium Level 1.8 mg/dL (1.8-2.4) Micro Micro Microbiology 01/29/19 Blood Culture - Preliminary, Resulted NO GROWTH AFTER 2 DAYS Review of Systems Constitutional: yes: alert, oriented Ears/Nose/Throat: Yes: no symptom reported Eyes: Yes: no symptom reported Pulmonary: Yes dyspnea Cardiovascular: Yes edema Gastrointestional: Yes: no symptom reported Genitourinary: Yes: no symptom reported Musculoskeletal: Yes: no symptom reported Skin: Yes no symptom reported Psychiatric/Neurological: Yes: no symptom reported Physical Exam General Appearance: no apparent distress Skin: warm, edema Respiratory: decreased breath sounds Heart: S1S2 Abdomen: soft Genitourinary: bladder flat Extremities: pulses present Neurology: alert, oriented, follow commands Assessment Assessment IMP CKD STAGE 4 - CR ABOUT UP TO 3.5 EXPECTED HTN EMERGENCY-BETTER CAD AND CM CHRONIC AFIB CHF-SYSTOLIC ACUTE AND CHRONIC HYPOXIC RESP FAILURE LE EDEMA OBESITY DM II NON COMPLIANCE PLAN ONGOING CARDIOLOGY EVALUATION PT REFUSING HEART CATH CONT TO DIURESE-CONT SCHEDULED IV LASIX D/W PT AND THAT HE MAY NEED DIALYSIS SOON ROD PELAEZ MD Feb 01, 2019 12:00
--- NOTE | 2019-02-01 16:44 | PDOC ---
PROGRESS NOTES Subjective Subjective Patient seen and examined Objective Objective Vital Signs Date Time Temp Pulse Resp B/P (MAP) Pulse Ox O2 Delivery O2 Flow Rate FiO2 02/01/19 15:32 94 Nasal Cannula 1.0 02/01/19 15:00 98.0 69 18 152/59 (90) 98.0 Intake and Output 02/01/19 07:00 Intake Total 480 ml Output Total 2275 ml Balance -1795 ml Intake Oral 480 ml Output Urine Total 2275 ml # Voids 3 Physical Exam Abdomen: Normal bowel sounds Heart: Regular rate General: mild distress Lungs: Other (mildly decreased breath sounds) Assessment Assessment Problems Medical Problems: (1) A-fib Status: Chronic (2) CAD (coronary artery disease) Status: Chronic (3) CHF (congestive heart failure) Status: Chronic (4) Chronic kidney disease Status: Acute (5) Elevated troponin Status: Acute (6) Obesity Status: Chronic (7) Respiratory failure Status: Acute 1. Acute on chronic hypoxic respiratory failure; multifactorial with a/c CHF and AE COPD. Better compensated 2. Elevated troponin with LBBB, Trop peak at 0.4. Possibly type II, demand ischemic in the setting hypoxia, accelerated HTN, and VIN/CKD. CP free. 3. Acute on chronic diastolic HF 4. Accelerated hypertension; remains elevated. 5. CAD; PCI 3 stents in the past as above. Recent abnormal stress test. Opted for medical management given lack of anginal symptoms, debility, preserved LV systolic function, and CKD. Now with progressive renal dysfunction. 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 nephrology following. 7. Hyperlipidemia 8. Diabetes, II 9. DM2 10. Morbid obesity, debility Comment Review of Relevant I have reviewed the following items kristin (where applicable) has been applied. Labs Laboratory Tests Test 01/30/19 17:30 01/30/19 21:41 01/31/19 03:30 01/31/19 07:52 Glucose (Fingerstick) 145 mg/dL (70-99) 163 mg/dL (70-99) 117 mg/dL (70-99) Sodium Level 141 mmol/L (136-145) Potassium Level 4.3 mmol/L (3.5-5.1) Chloride Level 105 mmol/L (98-107) Carbon Dioxide Level 28 mmol/L (21-32) Anion Gap 8 (6-14) Blood Urea Nitrogen 59 mg/dL (8-26) Creatinine 3.0 mg/dL (0.7-1.3) Estimated GFR (Cockcroft-Gault) 20.3 Glucose Level 139 mg/dL (70-99) Calcium Level 8.2 mg/dL (8.5-10.1) Phosphorus Level 4.3 mg/dL (2.6-4.7) Magnesium Level 1.8 mg/dL (1.8-2.4) Test 01/31/19 11:59 01/31/19 17:03 01/31/19 21:18 02/01/19 05:00 Glucose (Fingerstick) 100 mg/dL (70-99) 128 mg/dL (70-99) 146 mg/dL (70-99) Sodium Level 141 mmol/L (136-145) Potassium Level 4.3 mmol/L (3.5-5.1) Chloride Level 103 mmol/L (98-107) Carbon Dioxide Level 29 mmol/L (21-32) Anion Gap 9 (6-14) Blood Urea Nitrogen 63 mg/dL (8-26) Creatinine 3.5 mg/dL (0.7-1.3) Estimated GFR (Cockcroft-Gault) 17.0 Glucose Level 126 mg/dL (70-99) Calcium Level 8.3 mg/dL (8.5-10.1) Phosphorus Level 4.5 mg/dL (2.6-4.7) Magnesium Level 1.8 mg/dL (1.8-2.4) Test 02/01/19 07:37 02/01/19 12:09 Glucose (Fingerstick) 137 mg/dL (70-99) 138 mg/dL (70-99) Laboratory Tests Test 01/31/19 17:03 01/31/19 21:18 02/01/19 05:00 02/01/19 07:37 Glucose (Fingerstick) 128 mg/dL (70-99) 146 mg/dL (70-99) 137 mg/dL (70-99) Sodium Level 141 mmol/L (136-145) Potassium Level 4.3 mmol/L (3.5-5.1) Chloride Level 103 mmol/L (98-107) Carbon Dioxide Level 29 mmol/L (21-32) Anion Gap 9 (6-14) Blood Urea Nitrogen 63 mg/dL (8-26) Creatinine 3.5 mg/dL (0.7-1.3) Estimated GFR (Cockcroft-Gault) 17.0 Glucose Level 126 mg/dL (70-99) Calcium Level 8.3 mg/dL (8.5-10.1) Phosphorus Level 4.5 mg/dL (2.6-4.7) Magnesium Level 1.8 mg/dL (1.8-2.4) Test 02/01/19 12:09 Glucose (Fingerstick) 138 mg/dL (70-99) Microbiology 01/29/19 Blood Culture - Preliminary, Resulted NO GROWTH AFTER 2 DAYS Medications Current Medications Albuterol/ Ipratropium (Duoneb) 3 ml 1X ONCE NEB Last administered on 01/29/19at 20:09; Start 01/29/19 at 19:45; Stop 01/29/19 at 19:46; Status DC Methylprednisolone Sodium Succinate (SOLU-Medrol 125MG VIAL) 125 mg 1X ONCE IV Last administered on 01/29/19at 20:02; Start 01/29/19 at 19:45; Stop 01/29/19 at 19:46; Status DC Hydralazine HCl (Apresoline Inj) 10 mg 1X ONCE IVP Last administered on 01/17 09/04at 20:02; Start 01/29/19 at 20:00; Stop 01/29/19 at 20:01; Status DC Amlodipine Besylate (Norvasc) 5 mg DAILY PO ; Start 01/30/19 at 09:00; Stop 01/30/19 at 09:09; Status DC Aspirin (Angeli Aspirin) 325 mg DAILY PO ; Start 01/30/19 at 09:00; Stop 01/30/19 at 10:28; Status DC Atorvastatin Calcium (Lipitor) 40 mg QHS PO Last administered on 01/31/19at 21:29; Start 01/29/19 at 21:00 Insulin Glargine (Lantus) 35 units DAILY SQ ; Start 01/30/19 at 09:00; Stop 01/30/19 at 10:28; Status DC Lisinopril (Prinivil) 40 mg DAILY PO Last administered on 02/01/19at 08:43; Start 01/30/19 at 09:00 Metoprolol Tartrate (Lopressor) 25 mg DAILY PO Last administered on 02/01/19at 08:43; Start 01/30/19 at 09:00 Metoprolol Tartrate (Lopressor) 12.5 mg QHS PO Last administered on 01/31/19at 21:29; Start 01/29/19 at 21:00 Vitamin D (Vitamin D3) 5,000 unit DAILY PO ; Start 01/30/19 at 09:00; Status Cancel Non-Formulary Medication (Patiromer Calcium Sorbitex (Veltassa)) 8.4 gm DAILY PO ; Start 01/30/19 at 09:00; Status UNV Fish Oil (Fish Oil) 1,000 mg DAILY PO ; Start 01/30/19 at 09:00; Status Cancel Insulin Human Lispro (HumaLOG) 0-9 UNITS TIDWMEALS SQ Last administered on 01/30/19at 13:00; Start 01/30/19 at 08:00 Dextrose (Dextrose 50%-Water Syringe) 12.5 gm PRN Q15MIN PRN IV SEE COMMENTS; Start 01/29/19 at 20:15 Dextrose 250 ml PRN Q15MIN PRN IV SEE COMMENTS; Start 01/29/19 at 20:15 Albuterol/ Ipratropium (Duoneb) 3 ml RTQID NEB Last administered on 02/01/19at 15:31; Start 01/30/19 at 08:00 Acetaminophen/ Codeine Phosphate (Tylenol #3) 1 tab PRN Q6HRS PRN PO PAIN; Start 01/29/19 at 20:15 Guaifenesin (Robitussin Dm) 10 ml PRN Q6HRS PRN PO COUGH; Start 01/29/19 at 20:15 Zolpidem Tartrate (Ambien) 2.5 mg PRN QHS PRN PO INSOMNIA; Start 01/29/19 at 20:15 Ondansetron HCl (Zofran) 4 mg PRN Q6HRS PRN IV NAUSEA/VOMITING; Start 01/29/19 at 20:15 Clonidine HCl (Catapres) 0.1 mg PRN Q1HR PRN PO HYPERTENSION Last administered on 01/30/19at 11:44; Start 01/29/19 at 20:15 Hydralazine HCl (Apresoline Inj) 10 mg PRN Q4HRS PRN IVP ELEVATED BP, SEE COMMENTS Last administered on 02/01/19 03:30; Start 01/29/19 at 20:15 Furosemide (Lasix) 40 mg 1X ONCE IVP ; Start 01/29/19 at 21:00; Stop 01/29/19 at 20:53; Status DC Labetalol HCl (Normodyne Iv Push) 20 mg PRN Q2HR PRN IVP HYPERTENSION Last administered on 01/29/19 23:24; Start 01/29/19 at 21:00 Nitroglycerin/ Dextrose 250 ml @ 0 mls/hr 1X ONCE IV ; Start 01/29/19 at 21:00; Stop 01/29/19 at 20:53; Status DC Furosemide (Lasix) 60 mg 1X ONCE IVP Last administered on 01/29/19 21:24; Start 01/29/19 at 21:00; Stop 01/29/19 at 21:01; Status DC Ondansetron HCl (Zofran) 4 mg PRN Q8HRS PRN IV NAUSEA/VOMITING; Start 01/29/19 at 21:00; Stop 01/30/19 at 20:59; Status UNV Acetaminophen (Tylenol) 650 mg PRN Q4HRS PRN PO FEVER; Start 01/29/19 at 21:00; Stop 01/30/19 at 20:59; Status DC Amlodipine Besylate (Norvasc) 10 mg DAILY PO Last administered on 02/01/19 08:43; Start 01/31/19 at 09:00 Aspirin (Children'S Aspirin) 81 mg DAILY PO Last administered on 02/01/19 08:43; Start 01/31/19 at 09:00 Isosorbide Mononitrate (Imdur) 30 mg DAILY PO Last administered on 01/31/19 08:24; Start 01/30/19 at 11:00; Stop 01/31/19 at 09:11; Status DC Tamsulosin HCl (Flomax) 0.4 mg QHS PO Last administered on 01/31/19 21:29; Start 01/30/19 at 21:00 Insulin Glargine (Lantus) 35 units QHS SQ Last administered on 01/31/19 21:29; Start 01/30/19 at 21:00 Furosemide (Lasix) 80 mg 1X ONCE PO Last administered on 01/30/19at 13:00; Start 01/30/19 at 12:00; Stop 01/30/19 at 12:01; Status DC Doxycycline Hyclate (Vibra-Tab) 100 mg BID PO Last administered on 02/01/19at 08:43; Start 01/30/19 at 14:30 Furosemide (Lasix) 40 mg Q8HRS IVP Last administered on 02/01/19at 11:14; Start 01/30/19 at 16:00 Isosorbide Mononitrate (Imdur) 60 mg DAILY PO Last administered on 02/01/19at 08:43; Start 01/31/19 at 09:15 Lactobacillus Rhamnosus (Culturelle) 1 cap BID PO Last administered on 02/01/19 08:43; Start 01/31/19 at 21:00 Albuterol/ Ipratropium (Duoneb) 3 ml STK-MED ONCE .ROUTE ; Start 02/01/19 at 07:07; Stop 02/01/19 at 07:07; Status DC Active Scripts Active Reported Isosorbide Mononitrate Er (Isosorbide Mononitrate) 30 Mg Tab.er.24h 30 Mg PO DAILY Flomax (Tamsulosin Hcl) 0.4 Mg Cap.er.24h 0.4 Mg PO QHS Aspirin 81 Mg Tab.chew 81 Mg PO DAILY Metoprolol Tartrate 25 Mg Tablet 12.5 Mg PO QHS Amlodipine Besylate 5 Mg Tablet 5 Mg PO QHS Metoprolol Tartrate 25 Mg Tablet 1 Tab PO DAILY Atorvastatin Calcium 40 Mg Tablet 1 Tab PO QHS Suzanne Parra U-100 (Insulin Glargine,Hum.rec.anlog) 100 Unit/1 Ml Insuln.pen 35 Unit SQ DAILY Vitals/I & O Vital Sign - Last 24 Hours 01/31/19 01/31/19 01/31/19 01/31/19 19:00 19:43 19:48 21:29 Temp 97.7 97.7 Pulse 76 86 Resp 18 B/P (MAP) 177/66 (103) 177/66 Pulse Ox 95 95 O2 Delivery Nasal Cannula Nasal Cannula Nasal Cannula O2 Flow Rate 2.0 2.0 3.0 01/31/19 02/01/19 02/01/19 02/01/19 23:27 03:24 03:30 07:00 Temp 97.4 97.9 98.3 97.4 97.9 98.3 Pulse 71 79 79 82 Resp 20 18 18 B/P (MAP) 166/66 (99) 191/94 (126) 191/94 145/66 (92) Pulse Ox 96 96 O2 Delivery Nasal Cannula Nasal Cannula Nasal Cannula O2 Flow Rate 2.0 94.0 2.0 02/01/19 02/01/19 02/01/19 02/01/19 08:20 08:43 08:43 08:43 Pulse 82 82 82 B/P (MAP) 145/66 145/66 145/66 Pulse Ox 93 O2 Delivery Nasal Cannula O2 Flow Rate 3.0 02/01/19 02/01/19 02/01/19 02/01/19 08:43 11:00 15:00 15:32 Temp 97.7 98.0 97.7 98.0 Pulse 82 60 69 Resp 18 18 B/P (MAP) 145/66 126/52 (76) 152/59 (90) Pulse Ox 93 92 94 O2 Delivery Nasal Cannula Nasal Cannula Nasal Cannula O2 Flow Rate 2.0 2.0 1.0 Intake and Output 01/31/19 01/31/19 02/01/19 15:00 23:00 07:00 Intake Total 480 ml Output Total 450 ml 500 ml 1325 ml Balance -450 ml -500 ml -845 ml JOSE PEREZ MD Feb 01, 2019 16:44
[2019-02-01] MEDS: INSULIN GLARGINE 300 UNITS/3 ML INSULN.PEN. SQ SCH (21:00)
[2019-02-01] MEDS: TAMSULOSIN 0.4 MG CAP.ER.24H. PO SCH (21:27)
[2019-02-01] MEDS: ATORVASTATIN CALCIUM 40 MG TABLET. PO SCH (21:27)
[2019-02-02] VITALS (7 sets, daily range): BP systolic 120–176; BP diastolic 53–76
[2019-02-02] MEDS: hydrALAZINE 20 MG/ML VIAL. IVP PRN (04:53)
[2019-02-02 06:00] LABS: CALCIUM 8.4 mg/dL (8.5-10.1); CREATININE 3.7 mg/dL (0.7-1.3); POTASSIUM 3.8 mmol/L (3.5-5.1)
[2019-02-02 06:06] LABS: MAGNESIUM 1.6 mg/dL (1.8-2.4); PHOSPHORUS 4.9 mg/dL (2.6-4.7)
[2019-02-02] MEDS: FUROSEMIDE 40 MG/4 ML VIAL. IVP SCH (06:35)
[2019-02-02] MEDS: IPRATRPIUM/ALBUTEROL 0.5/2.5MG 3 ML NEBU. NEB SCH ×4 (07:17→18:38)
--- NOTE | 2019-02-02 07:19 | PDOC ---
PULMONARY PROGRESS NOTES Subjective on 02, sob better, has occ cough, no pain, not on home 02 Vitals Vital Signs Date Time Temp Pulse Resp B/P (MAP) Pulse Ox O2 Delivery O2 Flow Rate FiO2 02/02/19 05:34 90 160/76 (104) 02/02/19 04:30 98.0 22 92 Nasal Cannula 1.0 98.0 ROS: No Nausea, No Chest Pain, No Abdominal Pain, No Increase Cough General: Alert, No acute distress Lungs: Clear Cardiovascular: S1, S2 Abdomen: Soft, Other (OBESE) Neuro Exam: Alert Extremities: Other (EDEMA) Skin: Warm Labs Laboratory Tests Test 01/31/19 07:52 01/31/19 11:59 01/31/19 17:03 01/31/19 21:18 Glucose (Fingerstick) 117 mg/dL (70-99) 100 mg/dL (70-99) 128 mg/dL (70-99) 146 mg/dL (70-99) Test 02/01/19 05:00 02/01/19 07:37 02/01/19 12:09 02/01/19 16:43 Sodium Level 141 mmol/L (136-145) Potassium Level 4.3 mmol/L (3.5-5.1) Chloride Level 103 mmol/L (98-107) Carbon Dioxide Level 29 mmol/L (21-32) Anion Gap 9 (6-14) Blood Urea Nitrogen 63 mg/dL (8-26) Creatinine 3.5 mg/dL (0.7-1.3) Estimated GFR (Cockcroft-Gault) 17.0 Glucose Level 126 mg/dL (70-99) Calcium Level 8.3 mg/dL (8.5-10.1) Phosphorus Level 4.5 mg/dL (2.6-4.7) Magnesium Level 1.8 mg/dL (1.8-2.4) Glucose (Fingerstick) 137 mg/dL (70-99) 138 mg/dL (70-99) 118 mg/dL (70-99) Test 02/01/19 20:47 02/02/19 05:00 Glucose (Fingerstick) 131 mg/dL (70-99) Sodium Level 143 mmol/L (136-145) Potassium Level 3.8 mmol/L (3.5-5.1) Chloride Level 104 mmol/L (98-107) Carbon Dioxide Level 30 mmol/L (21-32) Anion Gap 9 (6-14) Blood Urea Nitrogen 67 mg/dL (8-26) Creatinine 3.7 mg/dL (0.7-1.3) Estimated GFR (Cockcroft-Gault) 16.0 Glucose Level 142 mg/dL (70-99) Calcium Level 8.4 mg/dL (8.5-10.1) Phosphorus Level 4.9 mg/dL (2.6-4.7) Magnesium Level 1.6 mg/dL (1.8-2.4) Laboratory Tests Test 02/01/19 07:37 02/01/19 12:09 02/01/19 16:43 02/01/19 20:47 Glucose (Fingerstick) 137 mg/dL (70-99) 138 mg/dL (70-99) 118 mg/dL (70-99) 131 mg/dL (70-99) Test 02/02/19 05:00 Sodium Level 143 mmol/L (136-145) Potassium Level 3.8 mmol/L (3.5-5.1) Chloride Level 104 mmol/L (98-107) Carbon Dioxide Level 30 mmol/L (21-32) Anion Gap 9 (6-14) Blood Urea Nitrogen 67 mg/dL (8-26) Creatinine 3.7 mg/dL (0.7-1.3) Estimated GFR (Cockcroft-Gault) 16.0 Glucose Level 142 mg/dL (70-99) Calcium Level 8.4 mg/dL (8.5-10.1) Phosphorus Level 4.9 mg/dL (2.6-4.7) Magnesium Level 1.6 mg/dL (1.8-2.4) Medications Active Scripts Medications Dose Route/Sig Max Daily Dose Days Date Category Isosorbide Mononitrate Er (Isosorbide Mononitrate) 30 Mg Tab.er.24h 30 Mg PO DAILY 01/30/19 Reported Flomax (Tamsulosin Hcl) 0.4 Mg Cap.er.24h 0.4 Mg PO QHS 01/30/19 Reported Aspirin 81 Mg Tab.chew 81 Mg PO DAILY 01/30/19 Reported Metoprolol Tartrate 25 Mg Tablet 12.5 Mg PO QHS 10/19/18 Reported Amlodipine Besylate 5 Mg Tablet 5 Mg PO QHS 10/19/18 Reported Metoprolol Tartrate 25 Mg Tablet 1 Tab PO DAILY 10/19/18 Reported Atorvastatin Calcium 40 Mg Tablet 1 Tab PO QHS 10/19/18 Reported Suzanne Heshamagatha U-100 (Insulin Glargine,Hum.rec.anlog) 100 Unit/1 Ml Insuln.pen 35 Unit SQ DAILY 10/19/18 Reported Impression . IMPRESSION: 1. Acute hypoxemic respiratory failure. 2. Eucrz-bo-[id number] diastolic heart failure. 3. Recent non-ST segment elevation myocardial infarction back in 10/2018. 4. Elevated troponin levels. 5. Coronary artery disease with previous coronary angiogram revealing 3-vessel coronary artery disease, status post percutaneous coronary intervention to the proximal circumflex and distal circumflex. 6. Morbid obesity. 7. Obstructive sleep apnea. 8. Hypertension. 9. Morbid obesity, BMI of 43.5. 10. Acute exacerbation of chronic obstructive pulmonary disease. 11. CKD/VIN Plan . 6 min walk at discharge keep I<O lasix monitor k, cr BD POSSIBLE HD IN FUTURE PER DR PELAEZ FOLLOW CARD INPUT discussed w AIDA Luis MD Feb 02, 2019 07:19
[2019-02-02] MEDS: INSULIN LISPRO 300 UNITS/3 ML VIAL. SQ SCH ×3 (08:00→17:00)
[2019-02-02] MEDS: ASPIRIN CHEWABLE 81 MG TABLET. PO SCH (08:30)
[2019-02-02] MEDS: DOXYCYCLINE HYCLATE 100 MG TABLET PO SCH ×2 (08:30→21:11)
[2019-02-02] MEDS: METOPROLOL TART IMMED RELEASE 25 MG TABLET. PO SCH ×2 (08:31→21:11)
[2019-02-02] MEDS: ISOSORBIDE MONONITRATE ER 30 MG TAB.ER.24H PO SCH (08:31)
[2019-02-02] MEDS: amLODIPine BESYLATE 10 MG TABLET PO SCH (08:31)
[2019-02-02] MEDS: LISINOPRIL 20 MG TABLET PO SCH (08:32)
[2019-02-02] MEDS: NON FORMULARY ITEM (Patiromer Calcium Sorbitex (Veltassa) 8.4 GM) PO SCH (09:00)
--- NOTE | 2019-02-02 09:57 | PDOC ---
PROGRESS NOTES Chief Complaint Chief Complaint 1. CHF, leg edema - 2. Hypoxic respi failure - sats 60s on arrival,ed 2,. Recent nSTEMi October 2018 - 3. CKD stage 4 - GFR 25 - known to renal service - MIGHT NEED HD 4. Obesity BMI 41 5. HTN emergency - Systolic 200s on arrival 6. CAD, a fib chronic stable History of Present Illness History of Present Illness NOt the best personality to deal with Creat cont to climb up, now 3.7 (his baseline about 3) - on lasix IV q8 by renal BP high-jagdeep DOES NOT WANT TO TALK ABOUT HD Now refusing LHC, cards planning LHC after initiation HD HE has no inc soa or CP CAme from home, was prev at [facility] - HH so far per pT recs PLAN: lasix 40 IV q8 per renal LHC pending john duran start kcl, now trending low HH so far on dc Vitals Vitals Vital Signs Date Time Temp Pulse Resp B/P (MAP) Pulse Ox O2 Delivery O2 Flow Rate FiO2 02/02/19 08:32 98 120/56 02/02/19 07:17 95 Nasal Cannula 1.0 02/02/19 07:00 97.9 16 97.9 Physical Exam General: mild distress Heart: Regular rate Lungs: Clear Abdomen: Normal bowel sounds Extremities: No clubbing Skin: No breakdown Labs LABS Laboratory Tests Test 02/01/19 12:09 02/01/19 16:43 02/01/19 20:47 02/02/19 05:00 Glucose (Fingerstick) 138 mg/dL (70-99) 118 mg/dL (70-99) 131 mg/dL (70-99) Sodium Level 143 mmol/L (136-145) Potassium Level 3.8 mmol/L (3.5-5.1) Chloride Level 104 mmol/L (98-107) Carbon Dioxide Level 30 mmol/L (21-32) Anion Gap 9 (6-14) Blood Urea Nitrogen 67 mg/dL (8-26) Creatinine 3.7 mg/dL (0.7-1.3) Estimated GFR (Cockcroft-Gault) 16.0 Glucose Level 142 mg/dL (70-99) Calcium Level 8.4 mg/dL (8.5-10.1) Phosphorus Level 4.9 mg/dL (2.6-4.7) Magnesium Level 1.6 mg/dL (1.8-2.4) Test 02/02/19 08:25 Glucose (Fingerstick) 142 mg/dL (70-99) Review of Systems Review of Systems asleep i did not awaken Assessment and Plan Assessmemt and Plan Problems Medical Problems: (1) A-fib Status: Chronic (2) CAD (coronary artery disease) Status: Chronic (3) CHF (congestive heart failure) Status: Chronic (4) Chronic kidney disease Status: Acute (5) Elevated troponin Status: Acute (6) Obesity Status: Chronic (7) Respiratory failure Status: Acute Comment Review of Relevant I have reviewed the following items kristin (where applicable) has been applied. Labs Laboratory Tests Test 01/31/19 11:59 01/31/19 17:03 01/31/19 21:18 02/01/19 05:00 Glucose (Fingerstick) 100 mg/dL (70-99) 128 mg/dL (70-99) 146 mg/dL (70-99) Sodium Level 141 mmol/L (136-145) Potassium Level 4.3 mmol/L (3.5-5.1) Chloride Level 103 mmol/L (98-107) Carbon Dioxide Level 29 mmol/L (21-32) Anion Gap 9 (6-14) Blood Urea Nitrogen 63 mg/dL (8-26) Creatinine 3.5 mg/dL (0.7-1.3) Estimated GFR (Cockcroft-Gault) 17.0 Glucose Level 126 mg/dL (70-99) Calcium Level 8.3 mg/dL (8.5-10.1) Phosphorus Level 4.5 mg/dL (2.6-4.7) Magnesium Level 1.8 mg/dL (1.8-2.4) Test 02/01/19 07:37 02/01/19 12:09 02/01/19 16:43 02/01/19 20:47 Glucose (Fingerstick) 137 mg/dL (70-99) 138 mg/dL (70-99) 118 mg/dL (70-99) 131 mg/dL (70-99) Test 02/02/19 05:00 02/02/19 08:25 Sodium Level 143 mmol/L (136-145) Potassium Level 3.8 mmol/L (3.5-5.1) Chloride Level 104 mmol/L (98-107) Carbon Dioxide Level 30 mmol/L (21-32) Anion Gap 9 (6-14) Blood Urea Nitrogen 67 mg/dL (8-26) Creatinine 3.7 mg/dL (0.7-1.3) Estimated GFR (Cockcroft-Gault) 16.0 Glucose Level 142 mg/dL (70-99) Calcium Level 8.4 mg/dL (8.5-10.1) Phosphorus Level 4.9 mg/dL (2.6-4.7) Magnesium Level 1.6 mg/dL (1.8-2.4) Glucose (Fingerstick) 142 mg/dL (70-99) Laboratory Tests Test 02/01/19 12:09 02/01/19 16:43 02/01/19 20:47 02/02/19 05:00 Glucose (Fingerstick) 138 mg/dL (70-99) 118 mg/dL (70-99) 131 mg/dL (70-99) Sodium Level 143 mmol/L (136-145) Potassium Level 3.8 mmol/L (3.5-5.1) Chloride Level 104 mmol/L (98-107) Carbon Dioxide Level 30 mmol/L (21-32) Anion Gap 9 (6-14) Blood Urea Nitrogen 67 mg/dL (8-26) Creatinine 3.7 mg/dL (0.7-1.3) Estimated GFR (Cockcroft-Gault) 16.0 Glucose Level 142 mg/dL (70-99) Calcium Level 8.4 mg/dL (8.5-10.1) Phosphorus Level 4.9 mg/dL (2.6-4.7) Magnesium Level 1.6 mg/dL (1.8-2.4) Test 02/02/19 08:25 Glucose (Fingerstick) 142 mg/dL (70-99) Microbiology 01/29/19 Blood Culture - Preliminary, Resulted NO GROWTH AFTER 3 DAYS Medications Current Medications Albuterol/ Ipratropium (Duoneb) 3 ml 1X ONCE NEB Last administered on 01/29/19at 20:09; Start 01/29/19 at 19:45; Stop 01/29/19 at 19:46; Status DC Methylprednisolone Sodium Succinate (SOLU-Medrol 125MG VIAL) 125 mg 1X ONCE IV Last administered on 01/29/19at 20:02; Start 01/29/19 at 19:45; Stop 01/29/19 at 19:46; Status DC Hydralazine HCl (Apresoline Inj) 10 mg 1X ONCE IVP Last administered on 01/29/19at 20:02; Start 01/29/19 at 20:00; Stop 01/29/19 at 20:01; Status DC Amlodipine Besylate (Norvasc) 5 mg DAILY PO ; Start 01/30/19 at 09:00; Stop 01/30/19 at 09:09; Status DC Aspirin (Angeli Aspirin) 325 mg DAILY PO ; Start 01/30/19 at 09:00; Stop 01/30/19 at 10:28; Status DC Atorvastatin Calcium (Lipitor) 40 mg QHS PO Last administered on 02/01/19at 22:12; Start 01/29/19 at 21:00 Insulin Glargine (Lantus) 35 units DAILY SQ ; Start 01/30/19 at 09:00; Stop 01/30/19 at 10:28; Status DC Lisinopril (Prinivil) 40 mg DAILY PO Last administered on 02/02/19at 08:32; Start 01/30/19 at 09:00 Metoprolol Tartrate (Lopressor) 25 mg DAILY PO Last administered on 02/02/19at 08:32; Start 01/30/19 at 09:00 Metoprolol Tartrate (Lopressor) 12.5 mg QHS PO Last administered on 02/01/19at 22:12; Start 01/29/19 at 21:00 Vitamin D (Vitamin D3) 5,000 unit DAILY PO ; Start 01/30/19 at 09:00; Status Cancel Non-Formulary Medication (Patiromer Calcium Sorbitex (Veltassa)) 8.4 gm DAILY PO ; Start 01/30/19 at 09:00; Status UNV Fish Oil (Fish Oil) 1,000 mg DAILY PO ; Start 01/30/19 at 09:00; Status Cancel Insulin Human Lispro (HumaLOG) 0-9 UNITS TIDWMEALS SQ Last administered on 01/30/19at 13:00; Start 01/30/19 at 08:00 Dextrose (Dextrose 50%-Water Syringe) 12.5 gm PRN Q15MIN PRN IV SEE COMMENTS; Start 01/29/19 at 20:15 Dextrose 250 ml PRN Q15MIN PRN IV SEE COMMENTS; Start 01/29/19 at 20:15 Albuterol/ Ipratropium (Duoneb) 3 ml RTQID NEB Last administered on 02/02/19at 07:17; Start 01/30/19 at 08:00 Acetaminophen/ Codeine Phosphate (Tylenol #3) 1 tab PRN Q6HRS PRN PO PAIN; Start 01/29/19 at 20:15 Guaifenesin (Robitussin Dm) 10 ml PRN Q6HRS PRN PO COUGH; Start 01/29/19 at 20:15 Zolpidem Tartrate (Ambien) 2.5 mg PRN QHS PRN PO INSOMNIA; Start 01/29/19 at 20:15 Ondansetron HCl (Zofran) 4 mg PRN Q6HRS PRN IV NAUSEA/VOMITING; Start 01/29/19 at 20:15 Clonidine HCl (Catapres) 0.1 mg PRN Q1HR PRN PO HYPERTENSION Last administered on 01/30/19at 11:44; Start 01/29/19 at 20:15 Hydralazine HCl (Apresoline Inj) 10 mg PRN Q4HRS PRN IVP ELEVATED BP, SEE COMMENTS Last administered on 02/02/19at 04:53; Start 01/29/19 at 20:15 Furosemide (Lasix) 40 mg 1X ONCE IVP ; Start 01/29/19 at 21:00; Stop 01/29/19 at 20:53; Status DC Labetalol HCl (Normodyne Iv Push) 20 mg PRN Q2HR PRN IVP HYPERTENSION Last administered on 01/29/19at 23:24; Start 01/29/19 at 21:00 Nitroglycerin/ Dextrose 250 ml @ 0 mls/hr 1X ONCE IV ; Start 01/29/19 at 21:00; Stop 01/29/19 at 20:53; Status DC Furosemide (Lasix) 60 mg 1X ONCE IVP Last administered on 01/29/19at 21:24; Start 01/29/19 at 21:00; Stop 01/29/19 at 21:01; Status DC Ondansetron HCl (Zofran) 4 mg PRN Q8HRS PRN IV NAUSEA/VOMITING; Start 01/29/19 at 21:00; Stop 01/30/19 at 20:59; Status UNV Acetaminophen (Tylenol) 650 mg PRN Q4HRS PRN PO FEVER; Start 01/29/19 at 21:00; Stop 01/30/19 at 20:59; Status DC Amlodipine Besylate (Norvasc) 10 mg DAILY PO Last administered on 02/02/19 08:32; Start 01/31/19 at 09:00 Aspirin (Children'S Aspirin) 81 mg DAILY PO Last administered on 02/02/19 08:32; Start 01/31/19 at 09:00 Isosorbide Mononitrate (Imdur) 30 mg DAILY PO Last administered on 01/31/19 08:24; Start 01/30/19 at 11:00; Stop 01/31/19 at 09:11; Status DC Tamsulosin HCl (Flomax) 0.4 mg QHS PO Last administered on 02/01/19 22:12; Start 01/30/19 at 21:00 Insulin Glargine (Lantus) 35 units QHS SQ Last administered on 02/01/19 22:22; Start 01/30/19 at 21:00 Furosemide (Lasix) 80 mg 1X ONCE PO Last administered on 01/30/19 13:00; Start 01/30/19 at 12:00; Stop 01/30/19 at 12:01; Status DC Doxycycline Hyclate (Vibra-Tab) 100 mg BID PO Last administered on 02/02/19 08:32; Start 01/30/19 at 14:30 Furosemide (Lasix) 40 mg Q8HRS IVP Last administered on 02/02/19 06:35; Start 01/30/19 at 16:00 Isosorbide Mononitrate (Imdur) 60 mg DAILY PO Last administered on 02/02/19 08:32; Start 01/31/19 at 09:15 Lactobacillus Rhamnosus (Culturelle) 1 cap BID PO Last administered on 02/01/19 22:12; Start 01/31/19 at 21:00 Albuterol/ Ipratropium (Duoneb) 3 ml STK-MED ONCE .ROUTE ; Start 02/01/19 at 07:07; Stop 02/01/19 at 07:07; Status DC Potassium Chloride (Klor-Con) 20 meq [id number] PO ; Start 02/02/19 at 10:00 Active Scripts Active Reported Isosorbide Mononitrate Er (Isosorbide Mononitrate) 30 Mg Tab.er.24h 30 Mg PO DAILY Flomax (Tamsulosin Hcl) 0.4 Mg Cap.er.24h 0.4 Mg PO QHS Aspirin 81 Mg Tab.chew 81 Mg PO DAILY Metoprolol Tartrate 25 Mg Tablet 12.5 Mg PO QHS Amlodipine Besylate 5 Mg Tablet 5 Mg PO QHS Metoprolol Tartrate 25 Mg Tablet 1 Tab PO DAILY Atorvastatin Calcium 40 Mg Tablet 1 Tab PO QHS Suzanne Parra U-100 (Insulin Glargine,Hum.rec.anlog) 100 Unit/1 Ml Insuln.pen 35 Unit SQ DAILY Vitals/I & O Vital Sign - Last 24 Hours 02/01/19 02/01/19 02/01/19 02/01/19 11:00 15:00 15:32 19:10 Temp 97.7 98.0 98.5 97.7 98.0 98.5 Pulse 60 69 74 Resp 18 18 19 B/P (MAP) 126/52 (76) 152/59 (90) 155/65 (95) Pulse Ox 93 92 94 92 O2 Delivery Nasal Cannula Nasal Cannula Nasal Cannula Nasal Cannula O2 Flow Rate 2.0 2.0 1.0 1.0 02/01/19 02/01/19 02/01/19 02/02/19 19:39 22:12 23:10 03:00 Temp 98.1 98.1 Pulse 74 72 72 Resp 21 B/P (MAP) 155/65 177/61 (99) Pulse Ox 94 91 O2 Delivery Nasal Cannula Nasal Cannula O2 Flow Rate 1.0 1.0 02/02/19 02/02/19 02/02/19 02/02/19 04:30 04:53 05:34 07:00 Temp 98.0 97.9 98.0 97.9 Pulse 75 73 90 85 Resp 22 16 B/P (MAP) 176/62 (100) 176/62 160/76 (104) 120/56 (77) Pulse Ox 92 94 O2 Delivery Nasal Cannula Nasal Cannula O2 Flow Rate 1.0 1.0 02/02/19 02/02/19 02/02/19 02/02/19 07:17 08:32 08:32 08:32 Pulse 98 98 98 B/P (MAP) 120/56 120/56 120/56 Pulse Ox 95 O2 Delivery Nasal Cannula O2 Flow Rate 1.0 02/02/19 08:32 Pulse 98 B/P (MAP) 120/56 Intake and Output 02/01/19 02/01/19 02/02/19 15:00 23:00 07:00 Intake Total 600 ml 260 ml 700 ml Output Total 375 ml 1325 ml Balance 600 ml -115 ml -625 ml DEVORAH EUBANKS MD Feb 02, 2019 09:57
--- NOTE | 2019-02-02 11:02 | PDOC ---
Renal-Progress Notes Subjective Notes Notes LESS SWELLING AND NO SOB History of Present Illness Hx of present illness BETTER Vitals Vitals Vital Signs Date Time Temp Pulse Resp B/P (MAP) Pulse Ox O2 Delivery O2 Flow Rate FiO2 02/02/19 08:32 98 120/56 02/02/19 07:17 95 Nasal Cannula 1.0 02/02/19 07:00 97.9 16 97.9 Weight Weight [ ] I.O. Intake and Output Intake and Output 02/02/19 07:00 Intake Total 1560 ml Output Total 1700 ml Balance -140 ml Intake Oral 1560 ml Output Urine Total 1700 ml # Voids 7 # Bowel Movements 1 Labs Labs Laboratory Tests Test 02/01/19 12:09 02/01/19 16:43 02/01/19 20:47 02/02/19 05:00 Glucose (Fingerstick) 138 mg/dL (70-99) 118 mg/dL (70-99) 131 mg/dL (70-99) Sodium Level 143 mmol/L (136-145) Potassium Level 3.8 mmol/L (3.5-5.1) Chloride Level 104 mmol/L (98-107) Carbon Dioxide Level 30 mmol/L (21-32) Anion Gap 9 (6-14) Blood Urea Nitrogen 67 mg/dL (8-26) Creatinine 3.7 mg/dL (0.7-1.3) Estimated GFR (Cockcroft-Gault) 16.0 Glucose Level 142 mg/dL (70-99) Calcium Level 8.4 mg/dL (8.5-10.1) Phosphorus Level 4.9 mg/dL (2.6-4.7) Magnesium Level 1.6 mg/dL (1.8-2.4) Test 02/02/19 08:25 Glucose (Fingerstick) 142 mg/dL (70-99) Micro Micro Microbiology 01/29/19 Blood Culture - Preliminary, Resulted NO GROWTH AFTER 3 DAYS Review of Systems Constitutional: yes: alert, oriented Ears/Nose/Throat: Yes: no symptom reported Eyes: Yes: no symptom reported Pulmonary: Yes dyspnea Cardiovascular: Yes edema Gastrointestional: Yes: no symptom reported Genitourinary: Yes: no symptom reported Musculoskeletal: Yes: no symptom reported Skin: Yes no symptom reported Psychiatric/Neurological: Yes: no symptom reported Physical Exam General Appearance: no apparent distress Skin: warm, edema Respiratory: decreased breath sounds Heart: S1S2 Abdomen: soft Genitourinary: bladder flat Extremities: pulses present Neurology: alert, oriented, follow commands Assessment Assessment IMP CKD STAGE 4 - CR ABOUT UP TO 3.7 EXPECTED HTN EMERGENCY-BETTER CAD AND CM CHRONIC AFIB CHF-SYSTOLIC ACUTE AND CHRONIC-COMPENSATED HYPOXIC RESP FAILURE LE EDEMA-BETTER OBESITY DM II NON COMPLIANCE PLAN ONGOING CARDIOLOGY EVALUATION PT REFUSING HEART CATH CHANGE LASIX TO PO IF RENAL FXN STABLE IN AM OK TO D/C FROM RENAL STAND POINT WILL FOLLOW ROD PELAEZ MD Feb 02, 2019 11:02
[2019-02-02] MEDS ORDERED: MAGNESIUM SULFATE 2GM 50 ML IV ONE (11:15)
[2019-02-02] MEDS: LACTOBACILLUS RHAMNOSUS GG 1 CAPSULE. PO SCH ×2 (11:26→21:11)
[2019-02-02] MEDS: POTASSIUM CHLORIDE 20 MEQ TABLET.ER. PO SCH (11:27)
[2019-02-02] MEDS: FUROSEMIDE 40 MG TABLET. PO SCH (14:44)
[2019-02-02] MEDS: ATORVASTATIN CALCIUM 40 MG TABLET. PO SCH (21:11)
[2019-02-02] MEDS: INSULIN GLARGINE 300 UNITS/3 ML INSULN.PEN. SQ SCH (21:13)
[2019-02-02] MEDS: TAMSULOSIN 0.4 MG CAP.ER.24H. PO SCH (21:13)
[2019-02-03 03:15] VITALS: BP 155/64
[2019-02-03 04:43] LABS: BASO % 1 % (0-3); EOS # 0.2 x10^3/uL (0.0-0.7); EOS % 3 % (0-3); HEMATOCRIT 30.4 % (39.0-53.0); LYMPH # 1.4 x10^3/uL (1.0-4.8); LYMPH % 22 % (24-48); MEAN CORPUSCULAR HEMOGLOBIN 28 pg (25-35); MEAN CORPUSCULAR HGB CONC 33 g/dL (31-37); MEAN CORPUSCULAR VOLUME 85 fL (79-100); MONO # 0.5 x10^3/uL (0.0-1.1); MONO % 8 % (0-9); NEUT # 4.3 x10^3/uL (1.8-7.7); NEUT % 66 % (31-73); PLATELET COUNT 277 x10^3/uL (140-400); RED BLOOD COUNT 3.57 x10^6/uL (4.30-5.70); RED CELL DISTRIBUTION WIDTH 14.9 % (11.5-14.5); WHITE BLOOD COUNT 6.5 x10^3/uL (4.0-11.0)
[2019-02-03 07:00] VITALS: BP 182/68
--- NOTE | 2019-02-03 07:31 | PDOC ---
PULMONARY PROGRESS NOTES Subjective on 02, feels better, sob better, has occ cough, no pain, not on home 02 Vitals Vital Signs Date Time Temp Pulse Resp B/P (MAP) Pulse Ox O2 Delivery O2 Flow Rate FiO2 02/03/19 04:18 91 Nasal Cannula 2.0 02/03/19 03:15 98.0 70 155/64 (94) 98.0 02/02/19 23:56 21 ROS: No Nausea, No Chest Pain, No Abdominal Pain, No Increase Cough General: Alert, No acute distress Lungs: Crackles Cardiovascular: S1, S2 Abdomen: Soft, Other (OBESE) Neuro Exam: Alert Extremities: Other (EDEMA) Skin: Warm Labs Laboratory Tests Test 02/01/19 07:37 02/01/19 12:09 02/01/19 16:43 02/01/19 20:47 Glucose (Fingerstick) 137 mg/dL (70-99) 138 mg/dL (70-99) 118 mg/dL (70-99) 131 mg/dL (70-99) Test 02/02/19 05:00 02/02/19 08:25 02/02/19 12:16 02/02/19 17:22 Sodium Level 143 mmol/L (136-145) Potassium Level 3.8 mmol/L (3.5-5.1) Chloride Level 104 mmol/L (98-107) Carbon Dioxide Level 30 mmol/L (21-32) Anion Gap 9 (6-14) Blood Urea Nitrogen 67 mg/dL (8-26) Creatinine 3.7 mg/dL (0.7-1.3) Estimated GFR (Cockcroft-Gault) 16.0 Glucose Level 142 mg/dL (70-99) Calcium Level 8.4 mg/dL (8.5-10.1) Phosphorus Level 4.9 mg/dL (2.6-4.7) Magnesium Level 1.6 mg/dL (1.8-2.4) Glucose (Fingerstick) 142 mg/dL (70-99) 168 mg/dL (70-99) 104 mg/dL (70-99) Test 02/02/19 21:10 02/03/19 04:00 Glucose (Fingerstick) 153 mg/dL (70-99) White Blood Count 6.5 x10^3/uL (4.0-11.0) Red Blood Count 3.57 x10^6/uL (4.30-5.70) Hemoglobin 10.0 g/dL (13.0-17.5) Hematocrit 30.4 % (39.0-53.0) Mean Corpuscular Volume 85 fL (79-100) Mean Corpuscular Hemoglobin 28 pg (25-35) Mean Corpuscular Hemoglobin Concent 33 g/dL (31-37) Red Cell Distribution Width 14.9 % (11.5-14.5) Platelet Count 277 x10^3/uL (140-400) Neutrophils (%) (Auto) 66 % (31-73) Lymphocytes (%) (Auto) 22 % (24-48) Monocytes (%) (Auto) 8 % (0-9) Eosinophils (%) (Auto) 3 % (0-3) Basophils (%) (Auto) 1 % (0-3) Neutrophils # (Auto) 4.3 x10^3/uL (1.8-7.7) Lymphocytes # (Auto) 1.4 x10^3/uL (1.0-4.8) Monocytes # (Auto) 0.5 x10^3/uL (0.0-1.1) Eosinophils # (Auto) 0.2 x10^3/uL (0.0-0.7) Basophils # (Auto) 0.0 x10^3/uL (0.0-0.2) Sodium Level 144 mmol/L (136-145) Potassium Level 4.0 mmol/L (3.5-5.1) Chloride Level 105 mmol/L (98-107) Carbon Dioxide Level 32 mmol/L (21-32) Anion Gap 7 (6-14) Blood Urea Nitrogen 67 mg/dL (8-26) Creatinine 3.6 mg/dL (0.7-1.3) Estimated GFR (Cockcroft-Gault) 16.5 Glucose Level 94 mg/dL (70-99) Calcium Level 8.1 mg/dL (8.5-10.1) Magnesium Level 1.9 mg/dL (1.8-2.4) Laboratory Tests Test 02/02/19 08:25 02/02/19 12:16 02/02/19 17:22 02/02/19 21:10 Glucose (Fingerstick) 142 mg/dL (70-99) 168 mg/dL (70-99) 104 mg/dL (70-99) 153 mg/dL (70-99) Test 02/03/19 04:00 White Blood Count 6.5 x10^3/uL (4.0-11.0) Red Blood Count 3.57 x10^6/uL (4.30-5.70) Hemoglobin 10.0 g/dL (13.0-17.5) Hematocrit 30.4 % (39.0-53.0) Mean Corpuscular Volume 85 fL (79-100) Mean Corpuscular Hemoglobin 28 pg (25-35) Mean Corpuscular Hemoglobin Concent 33 g/dL (31-37) Red Cell Distribution Width 14.9 % (11.5-14.5) Platelet Count 277 x10^3/uL (140-400) Neutrophils (%) (Auto) 66 % (31-73) Lymphocytes (%) (Auto) 22 % (24-48) Monocytes (%) (Auto) 8 % (0-9) Eosinophils (%) (Auto) 3 % (0-3) Basophils (%) (Auto) 1 % (0-3) Neutrophils # (Auto) 4.3 x10^3/uL (1.8-7.7) Lymphocytes # (Auto) 1.4 x10^3/uL (1.0-4.8) Monocytes # (Auto) 0.5 x10^3/uL (0.0-1.1) Eosinophils # (Auto) 0.2 x10^3/uL (0.0-0.7) Basophils # (Auto) 0.0 x10^3/uL (0.0-0.2) Sodium Level 144 mmol/L (136-145) Potassium Level 4.0 mmol/L (3.5-5.1) Chloride Level 105 mmol/L (98-107) Carbon Dioxide Level 32 mmol/L (21-32) Anion Gap 7 (6-14) Blood Urea Nitrogen 67 mg/dL (8-26) Creatinine 3.6 mg/dL (0.7-1.3) Estimated GFR (Cockcroft-Gault) 16.5 Glucose Level 94 mg/dL (70-99) Calcium Level 8.1 mg/dL (8.5-10.1) Magnesium Level 1.9 mg/dL (1.8-2.4) Medications Active Scripts Medications Dose Route/Sig Max Daily Dose Days Date Category Isosorbide Mononitrate Er (Isosorbide Mononitrate) 30 Mg Tab.er.24h 30 Mg PO DAILY 01/30/19 Reported Flomax (Tamsulosin Hcl) 0.4 Mg Cap.er.24h 0.4 Mg PO QHS 01/30/19 Reported Aspirin 81 Mg Tab.chew 81 Mg PO DAILY 01/30/19 Reported Metoprolol Tartrate 25 Mg Tablet 12.5 Mg PO QHS 10/19/18 Reported Amlodipine Besylate 5 Mg Tablet 5 Mg PO QHS 10/19/18 Reported Metoprolol Tartrate 25 Mg Tablet 1 Tab PO DAILY 10/19/18 Reported Atorvastatin Calcium 40 Mg Tablet 1 Tab PO QHS 10/19/18 Reported Suzanne Parra U-100 (Insulin Glargine,Hum.rec.anlog) 100 Unit/1 Ml Insuln.pen 35 Unit SQ DAILY 10/19/18 Reported Impression . IMPRESSION: 1. Acute hypoxemic respiratory failure. 2. Iggcu-ow-zsusvpu diastolic heart failure. 3. Recent non-ST segment elevation myocardial infarction back in 10/2018. 4. Elevated troponin levels. 5. Coronary artery disease with previous coronary angiogram revealing 3-vessel coronary artery disease, status post percutaneous coronary intervention to the proximal circumflex and distal circumflex. 6. Morbid obesity. 7. Obstructive sleep apnea. 8. Hypertension. 9. Morbid obesity, BMI of 43.5. 10. Acute exacerbation of chronic obstructive pulmonary disease. 11. CKD/VIN Plan . 6 min walk at discharge keep I<O lasix monitor k, cr BD POSSIBLE HD IN FUTURE PER DR PELAEZ FOLLOW CARD INPUT discussed w pt AIDA SOARES MD Feb 03, 2019 07:31
[2019-02-03] MEDS: IPRATRPIUM/ALBUTEROL 0.5/2.5MG 3 ML NEBU. NEB SCH ×2 (07:41→12:00)
[2019-02-03] MEDS: INSULIN LISPRO 300 UNITS/3 ML VIAL. SQ SCH ×2 (08:00→12:00)
[2019-02-03] MEDS: FUROSEMIDE 40 MG TABLET. PO SCH (08:51)
[2019-02-03] MEDS: ISOSORBIDE MONONITRATE ER 30 MG TAB.ER.24H PO SCH (08:51)
[2019-02-03] MEDS: amLODIPine BESYLATE 10 MG TABLET PO SCH (08:51)
[2019-02-03] MEDS: LACTOBACILLUS RHAMNOSUS GG 1 CAPSULE. PO SCH (08:52)
[2019-02-03] MEDS: ASPIRIN CHEWABLE 81 MG TABLET. PO SCH (08:52)
[2019-02-03] MEDS: POTASSIUM CHLORIDE 20 MEQ TABLET.ER. PO SCH (08:52)
[2019-02-03] MEDS: METOPROLOL TART IMMED RELEASE 25 MG TABLET. PO SCH (08:52)
[2019-02-03] MEDS: LISINOPRIL 20 MG TABLET PO SCH (08:52)
[2019-02-03] MEDS: DOXYCYCLINE HYCLATE 100 MG TABLET PO SCH (08:52)
[2019-02-03 11:00] VITALS: BP 177/60
[2019-02-03 11:02] LABS: ALBUMIN 2.4 g/dL (3.4-5.0); CALCIUM 8.1 mg/dL (8.5-10.1); CREATININE 3.6 mg/dL (0.7-1.3); GFR 16.5; PHOSPHORUS 4.8 mg/dL (2.6-4.7)
[2019-02-03] MEDS ORDERED: LISI-130 PO (11:39)
[2019-02-03] MEDS ORDERED: ISOS30TA4 PO (11:39)
[2019-02-03] MEDS ORDERED: DOXY100T PO (11:39)
[2019-02-03] MEDS ORDERED: FURO40TA4 PO (11:39)
[2019-02-03] MEDS ORDERED: AMLO10TA8 PO (11:39)
--- NOTE | 2019-02-03 11:40 | SNU/HH DC ---
DISCHARGE WITH HOME HEALTH DISCHARGE INFORMATION: Discharge Date: Feb 03, 2019 Final Diagnosis: Problems Medical Problems: (1) A-fib Status: Chronic (2) CAD (coronary artery disease) Status: Chronic (3) CHF (congestive heart failure) Status: Chronic (4) Chronic kidney disease Status: Acute (5) Elevated troponin Status: Acute (6) Obesity Status: Chronic (7) Respiratory failure Status: Acute Condition on Discharge: Stable CODE STATUS: Code Status: Full HOME HEALTH: Face to Face: I certify this patient is under my care and that I, or a nurse practitioner or physician's welder assistant working with me, had a face to face encounter that meets the physician face to face encounter requirements with this patient on []. Medical Complications: HTN RN For Eval/Treatment: Yes Physical Therapy For: Evalulation/Treatment Occupational Therapy For: Evaluation/Treatment Home Health Aide For: Self-care APPLICATION DEVELOPMENT PROJECT MANAGER For: [employer] Pt Meets Homebound Status: Extreme weakness w/ amb. POST DISCHARGE ORDERS: DIET AFTER DISCHARGE: Cardiac CHECKS AFTER DISCHARGE: Checks after discharge: Check blood press - daily, Check blood sugar, ac/hs FOLLOW-UP: PCP to follow Home Health: rajesh renal MD in 2-4 weeks CERTIFICATION STATEMENT: Certification Statement: Certification Statement: Based on the above finding, I certify that this patient is confined to the home and needs intermittent mcfp care, physical therapy and/or speech therapy, or continues to need occupational therapy.~ This patient is under my care, and I have initiated the establishment of the plan of care.~ This patient will be followed by myself or a community physician who will periodically review the plan of care. Home Meds Active Scripts Furosemide (FUROSEMIDE) 40 Mg Tablet, 40 MG PO BID92 for leg edema, chf, #60 TAB 1 Refill Prov:DEVORAH EUBANKS MD 02/03/19 Lisinopril (LISINOPRIL) 40 Mg Tablet, 40 MG PO DAILY for htn, #30 TAB Prov:DEVORAH EUBANKS MD 02/03/19 Amlodipine Besylate (AMLODIPINE BESYLATE) 10 Mg Tablet, 10 MG PO DAILY for htn, #90 TAB Prov:DEVORAH EUBANKS MD 02/03/19 Isosorbide Mononitrate (ISOSORBIDE MONONITRATE ER) 30 Mg Tab.er.24h, 60 MG PO DAILY for htn, #90 TAB.SR Prov:DEVORAH EUBANKS MD 02/03/19 Doxycycline Hyclate (DOXYCYCLINE HYCLATE) 100 Mg Tablet, 100 MG PO BID for bronchitis for 7 Days, #14 TAB Prov:DEVORAH EUBANKS MD 02/03/19 Reported Medications Isosorbide Mononitrate (ISOSORBIDE MONONITRATE ER) 30 Mg Tab.er.24h, 30 MG PO DAILY for , TAB.SR 01/30/19 Tamsulosin Hcl (FLOMAX) 0.4 Mg Cap.er.24h, 0.4 MG PO QHS for , TAB 01/30/19 Aspirin (ASPIRIN) 81 Mg Tab.chew, 81 MG PO DAILY for , TAB.CHEW 01/30/19 Metoprolol Tartrate (METOPROLOL TARTRATE) 25 Mg Tablet, 12.5 MG PO QHS for blood pressure, #180 TAB 1 Refill 10/19/18 Amlodipine Besylate (AMLODIPINE BESYLATE) 5 Mg Tablet, 5 MG PO QHS for , TAB 10/19/18 Metoprolol Tartrate (METOPROLOL TARTRATE) 25 Mg Tablet, 1 TAB PO DAILY for blood pressure, #180 TAB 1 Refill 10/19/18 Atorvastatin Calcium (ATORVASTATIN CALCIUM) 40 Mg Tablet, 1 TAB PO QHS for elevated lipids, #30 TAB 5 Refills 10/19/18 Insulin Glargine,Hum.rec.anlog (Basaglar Kwikpen U-100) 100 Unit/1 Ml Insuln.pen, 35 UNIT SQ DAILY for blood sugar, EACH 10/19/18 Discontinued Reported Medications [place]-3S/Dha/Epa/Fish Oil (Fish Oil 1,000 mg Softgel) 1 Each Capsule, 1 EACH PO, CAP 10/19/18 Patiromer Calcium Sorbitex (Veltassa) 8.4 Gm Powd.pack, 8.4 GM PO DAILY for supplement, PKT 10/19/18 Cholecalciferol (Vitamin D3) (VITAMIN D-3) 2,000 Unit Tablet, 5000 UNIT PO DAILY for supplement, TAB 10/19/18 Aspirin (ASPIRIN) 325 Mg Tablet, 1 TAB PO DAILY, #30 TAB 5 Refills 10/19/18 Lisinopril (LISINOPRIL) 20 Mg Tablet, 40 MG PO DAILY for blood pressure 06/03/13 DEVORAH EUBANKS MD Feb 03, 2019 11:40
--- NOTE | 2019-02-03 11:49 | PDOC ---
Renal-Progress Notes Subjective Notes Notes STABLE, NO NEW COMPLAINTS History of Present Illness Hx of present illness STABLE Vitals Vitals Vital Signs Date Time Temp Pulse Resp B/P (MAP) Pulse Ox O2 Delivery O2 Flow Rate FiO2 02/03/19 11:00 98.3 82 16 177/60 (99) 92 Room Air 98.3 02/03/19 07:41 1.0 Weight Weight [ ] I.O. Intake and Output Intake and Output 02/03/19 07:00 Intake Total 537 ml Output Total 1625 ml Balance -1088 ml Intake Oral 537 ml Output Urine Total 1625 ml # Voids 4 Labs Labs Laboratory Tests Test 02/02/19 12:16 02/02/19 17:22 02/02/19 21:10 02/03/19 04:00 Glucose (Fingerstick) 168 mg/dL (70-99) 104 mg/dL (70-99) 153 mg/dL (70-99) White Blood Count 6.5 x10^3/uL (4.0-11.0) Red Blood Count 3.57 x10^6/uL (4.30-5.70) Hemoglobin 10.0 g/dL (13.0-17.5) Hematocrit 30.4 % (39.0-53.0) Mean Corpuscular Volume 85 fL (79-100) Mean Corpuscular Hemoglobin 28 pg (25-35) Mean Corpuscular Hemoglobin Concent 33 g/dL (31-37) Red Cell Distribution Width 14.9 % (11.5-14.5) Platelet Count 277 x10^3/uL (140-400) Neutrophils (%) (Auto) 66 % (31-73) Lymphocytes (%) (Auto) 22 % (24-48) Monocytes (%) (Auto) 8 % (0-9) Eosinophils (%) (Auto) 3 % (0-3) Basophils (%) (Auto) 1 % (0-3) Neutrophils # (Auto) 4.3 x10^3/uL (1.8-7.7) Lymphocytes # (Auto) 1.4 x10^3/uL (1.0-4.8) Monocytes # (Auto) 0.5 x10^3/uL (0.0-1.1) Eosinophils # (Auto) 0.2 x10^3/uL (0.0-0.7) Basophils # (Auto) 0.0 x10^3/uL (0.0-0.2) Sodium Level 144 mmol/L (136-145) Potassium Level 4.0 mmol/L (3.5-5.1) Chloride Level 105 mmol/L (98-107) Carbon Dioxide Level 32 mmol/L (21-32) Anion Gap 7 (6-14) Blood Urea Nitrogen 67 mg/dL (8-26) Creatinine 3.6 mg/dL (0.7-1.3) Estimated GFR (Cockcroft-Gault) 16.5 Glucose Level 94 mg/dL (70-99) Calcium Level 8.1 mg/dL (8.5-10.1) Phosphorus Level 4.8 mg/dL (2.6-4.7) Magnesium Level 1.9 mg/dL (1.8-2.4) Albumin 2.4 g/dL (3.4-5.0) Test 02/03/19 08:06 Glucose (Fingerstick) 105 mg/dL (70-99) Micro Micro Microbiology 01/29/19 Blood Culture - Preliminary, Resulted NO GROWTH AFTER 4 DAYS Review of Systems Constitutional: yes: alert, oriented Ears/Nose/Throat: Yes: no symptom reported Eyes: Yes: no symptom reported Pulmonary: Yes dyspnea Cardiovascular: Yes edema Gastrointestional: Yes: no symptom reported Genitourinary: Yes: no symptom reported Musculoskeletal: Yes: no symptom reported Skin: Yes no symptom reported Psychiatric/Neurological: Yes: no symptom reported Physical Exam General Appearance: no apparent distress Skin: warm, edema Respiratory: decreased breath sounds Heart: S1S2 Abdomen: soft Genitourinary: bladder flat Extremities: pulses present Neurology: alert, oriented, follow commands Assessment Assessment IMP CKD STAGE 4 - CR STABLE AT 3.6 HTN EMERGENCY-BETTER CAD AND CM CHRONIC AFIB CHF-SYSTOLIC ACUTE AND CHRONIC-COMPENSATED HYPOXIC RESP FAILURE LE EDEMA-BETTER OBESITY DM II NON COMPLIANCE LOW MAG PLAN REPLACE MAG ONGOING CARDIOLOGY EVALUATION PT REFUSING HEART CATH CONT LASIX PO OK TO D/C FROM RENAL STAND POINT WITH OP F/U IN A FEW WEEKS D/W ATTENDING ROD PELAEZ MD Feb 03, 2019 11:49
[2019-02-03] MEDS ORDERED: MAGNESIUM SULFATE 1GM 100 ML IV ONE (12:00)
--- NOTE | 2019-02-03 12:35 | PDOC3 ---
Discharge Summary Visit Information Date of Admission: Jan 29, 2019 Date of Discharge: Feb 03, 2019 Admitting Diagnosis Comment: 1. CHF, leg edema - 2. Hypoxic respi failure - sats 60s on arrival,ed 2,. Recent nSTEMi October 2018 - 3. CKD stage 4 - GFR 25 - known to renal service - MIGHT NEED HD 4. Obesity BMI 41 5. HTN emergency - Systolic 200s on arrival 6. CAD, a fib chronic stable Final Diagnosis Problems Medical Problems: (1) A-fib Status: Chronic (2) CAD (coronary artery disease) Status: Chronic (3) CHF (congestive heart failure) Status: Chronic (4) Chronic kidney disease Status: Acute (5) Elevated troponin Status: Acute (6) Obesity Status: Chronic (7) Respiratory failure Status: Acute Brief Hospital Course Allergies Allergies Coded Allergies Type Severity Reaction Last Updated Verified No Known Drug Allergies 06/03/13 No Vital Signs Vital Signs Date Time Temp Pulse Resp B/P (MAP) Pulse Ox O2 Delivery O2 Flow Rate FiO2 02/03/19 11:00 98.3 82 16 177/60 (99) 92 Room Air 98.3 02/03/19 07:41 1.0 Lab Results Laboratory Tests Test 02/01/19 16:43 02/01/19 20:47 02/02/19 05:00 02/02/19 08:25 Glucose (Fingerstick) 118 mg/dL (70-99) 131 mg/dL (70-99) 142 mg/dL (70-99) Sodium Level 143 mmol/L (136-145) Potassium Level 3.8 mmol/L (3.5-5.1) Chloride Level 104 mmol/L (98-107) Carbon Dioxide Level 30 mmol/L (21-32) Anion Gap 9 (6-14) Blood Urea Nitrogen 67 mg/dL (8-26) Creatinine 3.7 mg/dL (0.7-1.3) Estimated GFR (Cockcroft-Gault) 16.0 Glucose Level 142 mg/dL (70-99) Calcium Level 8.4 mg/dL (8.5-10.1) Phosphorus Level 4.9 mg/dL (2.6-4.7) Magnesium Level 1.6 mg/dL (1.8-2.4) Test 02/02/19 12:16 02/02/19 17:22 02/02/19 21:10 02/03/19 04:00 Glucose (Fingerstick) 168 mg/dL (70-99) 104 mg/dL (70-99) 153 mg/dL (70-99) White Blood Count 6.5 x10^3/uL (4.0-11.0) Red Blood Count 3.57 x10^6/uL (4.30-5.70) Hemoglobin 10.0 g/dL (13.0-17.5) Hematocrit 30.4 % (39.0-53.0) Mean Corpuscular Volume 85 fL (79-100) Mean Corpuscular Hemoglobin 28 pg (25-35) Mean Corpuscular Hemoglobin Concent 33 g/dL (31-37) Red Cell Distribution Width 14.9 % (11.5-14.5) Platelet Count 277 x10^3/uL (140-400) Neutrophils (%) (Auto) 66 % (31-73) Lymphocytes (%) (Auto) 22 % (24-48) Monocytes (%) (Auto) 8 % (0-9) Eosinophils (%) (Auto) 3 % (0-3) Basophils (%) (Auto) 1 % (0-3) Neutrophils # (Auto) 4.3 x10^3/uL (1.8-7.7) Lymphocytes # (Auto) 1.4 x10^3/uL (1.0-4.8) Monocytes # (Auto) 0.5 x10^3/uL (0.0-1.1) Eosinophils # (Auto) 0.2 x10^3/uL (0.0-0.7) Basophils # (Auto) 0.0 x10^3/uL (0.0-0.2) Sodium Level 144 mmol/L (136-145) Potassium Level 4.0 mmol/L (3.5-5.1) Chloride Level 105 mmol/L (98-107) Carbon Dioxide Level 32 mmol/L (21-32) Anion Gap 7 (6-14) Blood Urea Nitrogen 67 mg/dL (8-26) Creatinine 3.6 mg/dL (0.7-1.3) Estimated GFR (Cockcroft-Gault) 16.5 Glucose Level 94 mg/dL (70-99) Calcium Level 8.1 mg/dL (8.5-10.1) Phosphorus Level 4.8 mg/dL (2.6-4.7) Magnesium Level 1.9 mg/dL (1.8-2.4) Albumin 2.4 g/dL (3.4-5.0) Test 02/03/19 08:06 02/03/19 12:18 Glucose (Fingerstick) 105 mg/dL (70-99) 129 mg/dL (70-99) Laboratory Tests Test 02/02/19 17:22 02/02/19 21:10 02/03/19 04:00 02/03/19 08:06 Glucose (Fingerstick) 104 mg/dL (70-99) 153 mg/dL (70-99) 105 mg/dL (70-99) White Blood Count 6.5 x10^3/uL (4.0-11.0) Red Blood Count 3.57 x10^6/uL (4.30-5.70) Hemoglobin 10.0 g/dL (13.0-17.5) Hematocrit 30.4 % (39.0-53.0) Mean Corpuscular Volume 85 fL (79-100) Mean Corpuscular Hemoglobin 28 pg (25-35) Mean Corpuscular Hemoglobin Concent 33 g/dL (31-37) Red Cell Distribution Width 14.9 % (11.5-14.5) Platelet Count 277 x10^3/uL (140-400) Neutrophils (%) (Auto) 66 % (31-73) Lymphocytes (%) (Auto) 22 % (24-48) Monocytes (%) (Auto) 8 % (0-9) Eosinophils (%) (Auto) 3 % (0-3) Basophils (%) (Auto) 1 % (0-3) Neutrophils # (Auto) 4.3 x10^3/uL (1.8-7.7) Lymphocytes # (Auto) 1.4 x10^3/uL (1.0-4.8) Monocytes # (Auto) 0.5 x10^3/uL (0.0-1.1) Eosinophils # (Auto) 0.2 x10^3/uL (0.0-0.7) Basophils # (Auto) 0.0 x10^3/uL (0.0-0.2) Sodium Level 144 mmol/L (136-145) Potassium Level 4.0 mmol/L (3.5-5.1) Chloride Level 105 mmol/L (98-107) Carbon Dioxide Level 32 mmol/L (21-32) Anion Gap 7 (6-14) Blood Urea Nitrogen 67 mg/dL (8-26) Creatinine 3.6 mg/dL (0.7-1.3) Estimated GFR (Cockcroft-Gault) 16.5 Glucose Level 94 mg/dL (70-99) Calcium Level 8.1 mg/dL (8.5-10.1) Phosphorus Level 4.8 mg/dL (2.6-4.7) Magnesium Level 1.9 mg/dL (1.8-2.4) Albumin 2.4 g/dL (3.4-5.0) Test 02/03/19 12:18 Glucose (Fingerstick) 129 mg/dL (70-99) Brief Hospital Course Mr. 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 SOA and legs better naturally with aggressive diuresis, Dcd with creat 3.5 shifted to po lasix by renal 40 BID, NO cp, no arrhythmias, no plans of LHC soon, Initially we though he needed HD (cards would cath once on HD), but pt not wanting to have this done yet. ff up renal 2-4 weeks with rpt BMP - rx on chart Pt seen and examined education> 60% of the time, needed alot of repetition, dc 35 Discharge Information Condition at Discharge: Improved, Stable Disposition/Orders: D/C to Home w/ HH Scheduled Amlodipine Besylate (Amlodipine Besylate) 5 Mg Tablet, 5 MG PO QHS for , (Reported) Entered as Reported by: SURINDER COLEMAN on 10/19/18 1152 Last Action: Edited on 01/30/19 1023 by Mark Price Amlodipine Besylate (Amlodipine Besylate) 10 Mg Tablet, 10 MG PO DAILY for htn, #90 Prescribed by: DEVORAH EUBANKS on 02/03/19 1139 Aspirin (Aspirin) 81 Mg Tab.chew, 81 MG PO DAILY for , (Reported) Entered as Reported by: Mark Price on 01/30/19 1023 Last Taken: 81 on Unknown Date & Time Last Action: Continued on 01/30/19 1026 by DEVORAH EUBANKS Atorvastatin Calcium (Atorvastatin Calcium) 40 Mg Tablet, 1 TAB PO QHS for eleva otoniel lipids, #30 Ref 5 (Reported) Entered as Reported by: SURINDER COLEMAN on 10/19/18 1154 Last Action: Continued on 01/29/192002 by DEVORAH EUBANKS Doxycycline Hyclate (Doxycycline Hyclate) 100 Mg Tablet, 100 MG PO BID for bronchitis for 7 Days, #14 Prescribed by: DEVORAH EUBANKS on 02/03/19 1139 Furosemide (Furosemide) 40 Mg Tablet, 40 MG PO BID92 for leg edema, chf, #60 Ref 1 Prescribed by: DEVORAH EUBANKS on 02/03/19 1139 Insulin Glargine,Hum.rec.anlog (Basaglar Kwikpen U-100) 100 Unit/1 Ml Insuln.pen, 35 UNIT SQ DAILY for blood sugar, (Reported) Entered as Reported by: SURINDER COLEMAN on 10/19/18 1154 Last Action: Continued on 01/29/192002 by DEVORAH EUBANKS Isosorbide Mononitrate (Isosorbide Mononitrate Er) 30 Mg Tab.er.24h, 30 MG PO DAILY for , (Reported) Entered as Reported by: Mark Price on 01/30/19 1023 Last Taken: 30 on Unknown Date & Time Last Action: Continued on 01/30/19 1026 by DEVORAH EUBANKS Isosorbide Mononitrate (Isosorbide Mononitrate Er) 30 Mg Tab.er.24h, 60 MG PO DAILY for htn, #90 Prescribed by: DEVORAH EUBANKS on 02/03/19 1139 Lisinopril (Lisinopril) 40 Mg Tablet, 40 MG PO DAILY for htn, #30 Prescribed by: DEVORAH EUBANKS on 02/03/19 1139 Metoprolol Tartrate (Metoprolol Tartrate) 25 Mg Tablet, 1 TAB PO DAILY for blood pressure, #180 Ref 1 (Reported) Entered as Reported by: SURINDER COLEMAN on 10/19/18 1154 Last Action: Continued on 01/29/192002 by DEVORAH EUBANKS Metoprolol Tartrate (Metoprolol Tartrate) 25 Mg Tablet, 12.5 MG PO QHS for blood pressure, #180 Ref 1 (Reported) Entered as Reported by: Lora Trivedi on 10/19/18 1531 Last Action: Continued on 01/29/192002 by DEVORAH EUBANKS Tamsulosin Hcl (Flomax) 0.4 Mg Cap.er.24h, 0.4 MG PO QHS for , (Reported) Entered as Reported by: Mark Price on 01/30/19 1023 Last Taken: 0.4 on Unknown Date & Time Last Action: Continued on 01/30/19 1026 by DEVORAH EUBANKS Discontinued Medications Aspirin (Aspirin) 325 Mg Tablet, 1 TAB PO DAILY, #30 Ref 5 (Reported) Entered as Reported by: SURINDER COLEMAN on 10/19/18 1155 Last Action: Discontinued on 01/30/19 1023 by Mark Price Cholecalciferol (Vitamin D3) (Vitamin D-3) 2,000 Unit Tablet, 5,000 UNIT PO DAILY for supplement, (Reported) Entered as Reported by: SURINDER COLEMAN on 10/19/18 1155 Last Action: Discontinued on 01/30/19 1023 by Mark Price Lisinopril (Lisinopril) 20 Mg Tablet, 40 MG PO DAILY for blood pressure, (Reported) Entered as Reported by: NORY RIVERA on 06/03/13 1625 Last Action: Discontinued on 01/30/19 1023 by Mark Price Cordova-3S/Dha/Epa/Fish Oil (Fish Oil 1,000 mg Softgel) 1 Each Capsule, 1 EACH PO, (Reported) Entered as Reported by: SURINDER COLEMAN on 10/19/18 1156 Last Action: Discontinued on 01/30/19 1023 by Mark Price Patiromer Calcium Sorbitex (Veltassa) 8.4 Gm Powd.pack, 8.4 GM PO DAILY for sup plement, (Reported) Entered as Reported by: SURINDER COLEMAN on 10/19/18 1156 Last Action: Discontinued on 01/30/19 1023 by DEVORAH Sandra MD Feb 03, 2019 12:35
--- NOTE | 2019-02-03 13:06 | PDOC ---
PROGRESS NOTES Subjective Subjective Patient seen and examined Objective Objective Vital Signs Date Time Temp Pulse Resp B/P (MAP) Pulse Ox O2 Delivery O2 Flow Rate FiO2 02/03/19 11:00 98.3 82 16 177/60 (99) 92 Room Air 98.3 02/03/19 07:41 1.0 Intake and Output 02/03/19 07:00 Intake Total 537 ml Output Total 1625 ml Balance -1088 ml Intake Oral 537 ml Output Urine Total 1625 ml # Voids 4 Physical Exam Abdomen: Normal bowel sounds Heart: Regular rate General: mild distress Lungs: Other (Slightly decreased breath sounds.) Assessment Assessment Problems Medical Problems: (1) A-fib Status: Chronic (2) CAD (coronary artery disease) Status: Chronic (3) CHF (congestive heart failure) Status: Chronic (4) Chronic kidney disease Status: Acute (5) Elevated troponin Status: Acute (6) Obesity Status: Chronic (7) Respiratory failure Status: Acute 1. Acute on chronic hypoxic respiratory failure; multifactorial with a/c CHF and AE COPD. Better compensated 2. Elevated troponin with LBBB, Trop peak at 0.4. Possibly type II, demand ischemic in the setting hypoxia, accelerated HTN, and VIN/CKD. CP free. 3. Acute on chronic diastolic HF 4. Accelerated hypertension; improved 5. CAD; PCI 3 stents in the past as above. Recent abnormal stress test. Opted for medical management given lack of anginal symptoms, debility, preserved LV systolic function, and CKD. Now with progressive renal dysfunction. 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 nephrology following. Discussion as above. 7. Hyperlipidemia 8. Diabetes, II 9. DM2 10. Morbid obesity, debility Comment Review of Relevant I have reviewed the following items kristin (where applicable) has been applied. Labs Laboratory Tests Test 02/01/19 16:43 02/01/19 20:47 02/02/19 05:00 02/02/19 08:25 Glucose (Fingerstick) 118 mg/dL (70-99) 131 mg/dL (70-99) 142 mg/dL (70-99) Sodium Level 143 mmol/L (136-145) Potassium Level 3.8 mmol/L (3.5-5.1) Chloride Level 104 mmol/L (98-107) Carbon Dioxide Level 30 mmol/L (21-32) Anion Gap 9 (6-14) Blood Urea Nitrogen 67 mg/dL (8-26) Creatinine 3.7 mg/dL (0.7-1.3) Estimated GFR (Cockcroft-Gault) 16.0 Glucose Level 142 mg/dL (70-99) Calcium Level 8.4 mg/dL (8.5-10.1) Phosphorus Level 4.9 mg/dL (2.6-4.7) Magnesium Level 1.6 mg/dL (1.8-2.4) Test 02/02/19 12:16 02/02/19 17:22 02/02/19 21:10 02/03/19 04:00 Glucose (Fingerstick) 168 mg/dL (70-99) 104 mg/dL (70-99) 153 mg/dL (70-99) White Blood Count 6.5 x10^3/uL (4.0-11.0) Red Blood Count 3.57 x10^6/uL (4.30-5.70) Hemoglobin 10.0 g/dL (13.0-17.5) Hematocrit 30.4 % (39.0-53.0) Mean Corpuscular Volume 85 fL (79-100) Mean Corpuscular Hemoglobin 28 pg (25-35) Mean Corpuscular Hemoglobin Concent 33 g/dL (31-37) Red Cell Distribution Width 14.9 % (11.5-14.5) Platelet Count 277 x10^3/uL (140-400) Neutrophils (%) (Auto) 66 % (31-73) Lymphocytes (%) (Auto) 22 % (24-48) Monocytes (%) (Auto) 8 % (0-9) Eosinophils (%) (Auto) 3 % (0-3) Basophils (%) (Auto) 1 % (0-3) Neutrophils # (Auto) 4.3 x10^3/uL (1.8-7.7) Lymphocytes # (Auto) 1.4 x10^3/uL (1.0-4.8) Monocytes # (Auto) 0.5 x10^3/uL (0.0-1.1) Eosinophils # (Auto) 0.2 x10^3/uL (0.0-0.7) Basophils # (Auto) 0.0 x10^3/uL (0.0-0.2) Sodium Level 144 mmol/L (136-145) Potassium Level 4.0 mmol/L (3.5-5.1) Chloride Level 105 mmol/L (98-107) Carbon Dioxide Level 32 mmol/L (21-32) Anion Gap 7 (6-14) Blood Urea Nitrogen 67 mg/dL (8-26) Creatinine 3.6 mg/dL (0.7-1.3) Estimated GFR (Cockcroft-Gault) 16.5 Glucose Level 94 mg/dL (70-99) Calcium Level 8.1 mg/dL (8.5-10.1) Phosphorus Level 4.8 mg/dL (2.6-4.7) Magnesium Level 1.9 mg/dL (1.8-2.4) Albumin 2.4 g/dL (3.4-5.0) Test 02/03/19 08:06 02/03/19 12:18 Glucose (Fingerstick) 105 mg/dL (70-99) 129 mg/dL (70-99) Laboratory Tests Test 02/02/19 17:22 02/02/19 21:10 02/03/19 04:00 02/03/19 08:06 Glucose (Fingerstick) 104 mg/dL (70-99) 153 mg/dL (70-99) 105 mg/dL (70-99) White Blood Count 6.5 x10^3/uL (4.0-11.0) Red Blood Count 3.57 x10^6/uL (4.30-5.70) Hemoglobin 10.0 g/dL (13.0-17.5) Hematocrit 30.4 % (39.0-53.0) Mean Corpuscular Volume 85 fL (79-100) Mean Corpuscular Hemoglobin 28 pg (25-35) Mean Corpuscular Hemoglobin Concent 33 g/dL (31-37) Red Cell Distribution Width 14.9 % (11.5-14.5) Platelet Count 277 x10^3/uL (140-400) Neutrophils (%) (Auto) 66 % (31-73) Lymphocytes (%) (Auto) 22 % (24-48) Monocytes (%) (Auto) 8 % (0-9) Eosinophils (%) (Auto) 3 % (0-3) Basophils (%) (Auto) 1 % (0-3) Neutrophils # (Auto) 4.3 x10^3/uL (1.8-7.7) Lymphocytes # (Auto) 1.4 x10^3/uL (1.0-4.8) Monocytes # (Auto) 0.5 x10^3/uL (0.0-1.1) Eosinophils # (Auto) 0.2 x10^3/uL (0.0-0.7) Basophils # (Auto) 0.0 x10^3/uL (0.0-0.2) Sodium Level 144 mmol/L (136-145) Potassium Level 4.0 mmol/L (3.5-5.1) Chloride Level 105 mmol/L (98-107) Carbon Dioxide Level 32 mmol/L (21-32) Anion Gap 7 (6-14) Blood Urea Nitrogen 67 mg/dL (8-26) Creatinine 3.6 mg/dL (0.7-1.3) Estimated GFR (Cockcroft-Gault) 16.5 Glucose Level 94 mg/dL (70-99) Calcium Level 8.1 mg/dL (8.5-10.1) Phosphorus Level 4.8 mg/dL (2.6-4.7) Magnesium Level 1.9 mg/dL (1.8-2.4) Albumin 2.4 g/dL (3.4-5.0) Test 02/03/19 12:18 Glucose (Fingerstick) 129 mg/dL (70-99) Microbiology 01/29/19 Blood Culture - Preliminary, Resulted NO GROWTH AFTER 4 DAYS Medications Current Medications Albuterol/ Ipratropium (Duoneb) 3 ml 1X ONCE NEB Last administered on 01/29/19at 20:09; Start 01/29/19 at 19:45; Stop 01/29/19 at 19:46; Status DC Methylprednisolone Sodium Succinate (SOLU-Medrol 125MG VIAL) 125 mg 1X ONCE IV Last administered on 01/29/19 20:02; Start 01/29/19 at 19:45; Stop 01/29/19 at 19:46; Status DC Hydralazine HCl (Apresoline Inj) 10 mg 1X ONCE IVP Last administered on 01/29/19at 20:02; Start 01/29/19 at 20:00; Stop 01/29/19 at 20:01; Status DC Amlodipine Besylate (Norvasc) 5 mg DAILY PO ; Start 01/30/19 at 09:00; Stop 01/30/19 at 09:09; Status DC Aspirin (Angeli Aspirin) 325 mg DAILY PO ; Start 01/30/19 at 09:00; Stop 01/30/19 at 10:28; Status DC Atorvastatin Calcium (Lipitor) 40 mg QHS PO Last administered on 02/02/19at 21:13; Start 01/29/19 at 21:00 Insulin Glargine (Lantus) 35 units DAILY SQ ; Start 01/30/19 at 09:00; Stop 01/30/19 at 10:28; Status DC Lisinopril (Prinivil) 40 mg DAILY PO Last administered on 02/03/19at 08:52; Start 01/30/19 at 09:00 Metoprolol Tartrate (Lopressor) 25 mg DAILY PO Last administered on 02/03/19at 08:52; Start 01/30/19 at 09:00 Metoprolol Tartrate (Lopressor) 12.5 mg QHS PO Last administered on 02/02/19at 21:13; Start 01/29/19 at 21:00 Vitamin D (Vitamin D3) 5,000 unit DAILY PO ; Start 01/30/19 at 09:00; Status Cancel Non-Formulary Medication (Patiromer Calcium Sorbitex (Veltassa)) 8.4 gm DAILY PO ; Start 01/30/19 at 09:00; Stop 02/02/19 at 10:48; Status DC Fish Oil (Fish Oil) 1,000 mg DAILY PO ; Start 01/30/19 at 09:00; Status Cancel Insulin Human Lispro (HumaLOG) 0-9 UNITS TIDWMEALS SQ Last administered on 02/02/19at 12:41; Start 01/30/19 at 08:00 Dextrose (Dextrose 50%-Water Syringe) 12.5 gm PRN Q15MIN PRN IV SEE COMMENTS; Start 01/29/19 at 20:15 Dextrose 250 ml PRN Q15MIN PRN IV SEE COMMENTS; Start 01/29/19 at 20:15 Albuterol/ Ipratropium (Duoneb) 3 ml RTQID NEB Last administered on 02/03/19at 07:41; Start 01/30/19 at 08:00 Acetaminophen/ Codeine Phosphate (Tylenol #3) 1 tab PRN Q6HRS PRN PO PAIN; Start 01/29/19 at 20:15 Guaifenesin (Robitussin Dm) 10 ml PRN Q6HRS PRN PO COUGH; Start 01/29/19 at 20:15 Zolpidem Tartrate (Ambien) 2.5 mg PRN QHS PRN PO INSOMNIA; Start 01/29/19 at 20:15 Ondansetron HCl (Zofran) 4 mg PRN Q6HRS PRN IV NAUSEA/VOMITING; Start 01/29/19 at 20:15 Clonidine HCl (Catapres) 0.1 mg PRN Q1HR PRN PO HYPERTENSION Last administered on 01/30/19at 11:44; Start 01/29/19 at 20:15 Hydralazine HCl (Apresoline Inj) 10 mg PRN Q4HRS PRN IVP ELEVATED BP, SEE COMMENTS Last administered on 02/02/19at 04:53; Start 01/29/19 at 20:15 Furosemide (Lasix) 40 mg 1X ONCE IVP ; Start 01/29/19 at 21:00; Stop 01/29/19 at 20:53; Status DC Labetalol HCl (Normodyne Iv Push) 20 mg PRN Q2HR PRN IVP HYPERTENSION Last administered on 01/29/19at 23:24; Start 01/29/19 at 21:00 Nitroglycerin/ Dextrose 250 ml @ 0 mls/hr 1X ONCE IV ; Start 01/29/19 at 21:00; Stop 01/29/19 at 20:53; Status DC Furosemide (Lasix) 60 mg 1X ONCE IVP Last administered on 01/29/19at 21:24; Start 01/29/19 at 21:00; Stop 01/29/19 at 21:01; Status DC Ondansetron HCl (Zofran) 4 mg PRN Q8HRS PRN IV NAUSEA/VOMITING; Start 01/29/19 at 21:00; Stop 01/30/19 at 20:59; Status UNV Acetaminophen (Tylenol) 650 mg PRN Q4HRS PRN PO FEVER; Start 01/29/19 at 21:00; Stop 01/30/19 at 20:59; Status DC Amlodipine Besylate (Norvasc) 10 mg DAILY PO Last administered on 02/03/19 08:52; Start 01/31/19 at 09:00 Aspirin (Children'S Aspirin) 81 mg DAILY PO Last administered on 02/03/19 08:52; Start 01/31/19 at 09:00 Isosorbide Mononitrate (Imdur) 30 mg DAILY PO Last administered on 01/31/19 08:24; Start 01/30/19 at 11:00; Stop 01/31/19 at 09:11; Status DC Tamsulosin HCl (Flomax) 0.4 mg QHS PO Last administered on 02/02/19 21:13; Start 01/30/19 at 21:00 Insulin Glargine (Lantus) 35 units QHS SQ Last administered on 02/02/19 21:13; Start 01/30/19 at 21:00 Furosemide (Lasix) 80 mg 1X ONCE PO Last administered on 01/30/19 13:00; Start 01/30/19 at 12:00; Stop 01/30/19 at 12:01; Status DC Doxycycline Hyclate (Vibra-Tab) 100 mg BID PO Last administered on 02/03/19 08:52; Start 01/30/19 at 14:30 Furosemide (Lasix) 40 mg Q8HRS IVP Last administered on 02/02/19 06:35; Start 01/30/19 at 16:00; Stop 02/02/19 at 10:48; Status DC Isosorbide Mononitrate (Imdur) 60 mg DAILY PO Last administered on 02/03/19 08:52; Start 01/31/19 at 09:15 Lactobacillus Rhamnosus (Culturelle) 1 cap BID PO Last administered on 02/03/19 08:52; Start 01/31/19 at 21:00 Albuterol/ Ipratropium (Duoneb) 3 ml STK-MED ONCE .ROUTE ; Start 02/01/19 at 07:07; Stop 02/01/19 at 07:07; Status DC Potassium Chloride (Klor-Con) 20 meq [id number] PO Last administered on 02/03/19 08:52; Start 02/02/19 at 10:00 Furosemide (Lasix) 40 mg [id number] PO Last administered on 02/03/19at 08:52; Start 02/02/19 at 14:00 Magnesium Sulfate 50 ml @ 25 mls/hr 1X ONCE IV Last administered on 02/02/19at 12:41; Start 02/02/19 at 11:15; Stop 02/02/19 at 13:14; Status DC Magnesium Sulfate/ Dextrose 100 ml @ 100 mls/hr 1X ONCE IV Last administered on 02/03/19at 12:33; Start 02/03/19 at 12:00; Stop 02/03/19 at 12:59; Status DC Active Scripts Active Furosemide 40 Mg Tablet 40 Mg PO [id number] Lisinopril 40 Mg Tablet 40 Mg PO DAILY Amlodipine Besylate 10 Mg Tablet 10 Mg PO DAILY Isosorbide Mononitrate Er (Isosorbide Mononitrate) 30 Mg Tab.er.24h 60 Mg PO DAILY Doxycycline Hyclate 100 Mg Tablet 100 Mg PO BID 7 Days Reported Isosorbide Mononitrate Er (Isosorbide Mononitrate) 30 Mg Tab.er.24h 30 Mg PO DAILY Flomax (Tamsulosin Hcl) 0.4 Mg Cap.er.24h 0.4 Mg PO QHS Aspirin 81 Mg Tab.chew 81 Mg PO DAILY Metoprolol Tartrate 25 Mg Tablet 12.5 Mg PO QHS Amlodipine Besylate 5 Mg Tablet 5 Mg PO QHS Metoprolol Tartrate 25 Mg Tablet 1 Tab PO DAILY Atorvastatin Calcium 40 Mg Tablet 1 Tab PO QHS Basaglar Norrispen U-100 (Insulin Glargine,Hum.rec.anlog) 100 Unit/1 Ml Insuln.pen 35 Unit SQ DAILY Vitals/I & O Vital Sign - Last 24 Hours 02/02/19 02/02/19 02/02/19 02/02/19 15:00 16:07 18:39 19:10 Temp 97.8 98.6 97.8 98.6 Pulse 82 80 Resp 16 22 B/P (MAP) 136/59 (84) 143/53 (83) Pulse Ox 88 94 94 93 O2 Delivery Room Air Nasal Cannula Nasal Cannula Nasal Cannula O2 Flow Rate 1.0 1.0 1.0 02/02/19 02/02/19 02/03/19 02/03/19 21:13 23:56 03:15 04:18 Temp 98.0 98.0 98.0 98.0 Pulse 80 72 70 Resp 21 B/P (MAP) 143/53 165/60 (95) 155/64 (94) Pulse Ox 94 86 91 O2 Delivery Nasal Cannula Room Air Nasal Cannula O2 Flow Rate 1.0 2.0 02/03/19 02/03/19 02/03/19 02/03/19 07:00 07:41 08:52 08:52 Temp 98.6 98.6 Pulse 79 79 79 Resp 16 B/P (MAP) 182/68 (106) 182/68 182/68 Pulse Ox 90 O2 Delivery Room Air Nasal Cannula O2 Flow Rate 1.0 02/03/19 02/03/19 02/03/19 08:52 08:52 11:00 Temp 98.3 98.3 Pulse 79 79 82 Resp 16 B/P (MAP) 182/68 182/68 177/60 (99) Pulse Ox 92 O2 Delivery Room Air Intake and Output 02/02/19 02/02/19 02/03/19 15:00 23:00 07:00 Intake Total 237 ml 300 ml Output Total 700 ml 550 ml 375 ml Balance -700 ml -313 ml -75 ml JOSE PEREZ MD Feb 03, 2019 13:06
--- NOTE | 2019-02-03 14:39 | NUR ---
Discharge Note: LEANA DODD Discharge instructions and discharge home medications reviewed with Patient and a copy given. All questions have been answered and understanding verbalized. The following instructions and handouts were given: ESRD, new medications, renal diet, follow ups
== END 2019-02-03 14:00 | disposition home health service (06) | DRG 682 ==
LOC: ER 16:58 → 2 NORTH 20:00
PROVIDERS: ADMIT Internal Medicine; ATTEND Internal Medicine
DX: N17.9 Acute kidney failure, unspecified (principal); I50.43 Acute on chronic combined systolic (congestive) and diastolic (congestive) heart failure; J96.21 Acute and chronic respiratory failure with hypoxia; I16.1 Hypertensive emergency; J44.1 Chronic obstructive pulmonary disease with (acute) exacerbation; Z68.41 Body mass index [BMI] 40.0-44.9, adult; I13.2 Hypertensive heart and chronic kidney disease with heart failure and with stage 5 chronic kidney disease, or end stage renal disease; N18.5 Chronic kidney disease, stage 5; K57.90 Diverticulosis of intestine, part unspecified, without perforation or abscess without bleeding; I48.2 Chronic atrial fibrillation; E11.22 Type 2 diabetes mellitus with diabetic chronic kidney disease; E11.319 Type 2 diabetes mellitus with unspecified diabetic retinopathy without macular edema; E66.01 Morbid (severe) obesity due to excess calories; E78.00 Pure hypercholesterolemia, unspecified; E78.5 Hyperlipidemia, unspecified; G47.33 Obstructive sleep apnea (adult) (pediatric); I25.10 Atherosclerotic heart disease of native coronary artery without angina pectoris; I25.2 Old myocardial infarction; Z79.82 Long term (current) use of aspirin; Z79.899 Other long term (current) drug therapy; Z82.49 Family history of ischemic heart disease and other diseases of the circulatory system; Z91.19 Patient's noncompliance with other medical treatment and regimen; Z95.5 Presence of coronary angioplasty implant and graft; Z87.891 Personal history of nicotine dependence; Z90.49 Acquired absence of other specified parts of digestive tract; Z79.4 Long term (current) use of insulin
CPT/HCPCS: 36415; 71045; 80048; 80053; 80069; 80307; 82553; 82962; 83605; 83735; 83880; 84100; 84145; 84443; 84484; 85007; 85025; 85379; 85610; 85730; 87040; 93005; 94618; 94640; 94760; 96374; 96375; J0360; J1815; J1940; J2930; J3475; J3490; J7620; 97110; 97116; 97535; 99285-25; G0378

== ENCOUNTER 2019-08-26 20:22 | Inpatient (IN) | payer MEDICARE, BC ==
[~2019-08-26] VITALS: Ht 165.1 cm; Wt 96.7 kg
[~2019-08-26 20:22] MED LIST changes: +AMLO10TA8 PO; +ASPI-630 PO; +CIPR500T94 PO; +DOXY100T PO; +FURO20TA3 PO; +FURO40TA4 PO; +ISOS30TA4 PO; +LISI-130 PO; +TAMS0.4C97 PO
[2019-08-26 21:11] LABS: BASO # 0.1 x10^3/uL (0.0-0.2); BASO % 1 % (0-3); EOS # 0.3 x10^3/uL (0.0-0.7); EOS % 4 % (0-3); HEMATOCRIT 36.6 % (39.0-53.0); LYMPH # 1.3 x10^3/uL (1.0-4.8); LYMPH % 19 % (24-48); MEAN CORPUSCULAR HEMOGLOBIN 29 pg (25-35); MEAN CORPUSCULAR HGB CONC 33 g/dL (31-37); MEAN CORPUSCULAR VOLUME 89 fL (79-100); MONO # 0.6 x10^3/uL (0.0-1.1); MONO % 8 % (0-9); NEUT # 4.6 x10^3/uL (1.8-7.7); NEUT % 67 % (31-73); PLATELET COUNT 225 x10^3/uL (140-400); RED BLOOD COUNT 4.09 x10^6/uL (4.30-5.70); RED CELL DISTRIBUTION WIDTH 15.8 % (11.5-14.5); WHITE BLOOD COUNT 6.9 x10^3/uL (4.0-11.0)
[2019-08-26] MEDS ORDERED: HYDROcodone/APAP 5/325MG 1 TAB TABLET PO ONE (21:15)
[2019-08-26 21:19] LABS: PROTHROMBIN TIME PATIENT 12.6 SEC (11.7-14.0)
[2019-08-26 22:06] LABS: CALCIUM 8.1 mg/dL (8.5-10.1); GFR 32.4; POTASSIUM 3.6 mmol/L (3.5-5.1)
[2019-08-26 22:12] LABS: ALBUMIN/GLOBULIN RATIO 1.1 (1.0-1.7); TOTAL BILIRUBIN 0.3 mg/dL (0.2-1.0); TOTAL PROTEIN 5.7 g/dL (6.4-8.2)
[2019-08-26 22:16] LABS: CREATINE KINASE 43 U/L (39-308)
[2019-08-26] MEDS ORDERED: fentaNYL PF VIAL 100 MCG/2 ML VIAL IVP ONE (23:00)
--- NOTE | 2019-08-26 23:38 | RAD ---
EXAM: AP, oblique and lateral views right foot AP, oblique and lateral views right ankle AP and lateral views left tibia/fibula DATE: 08/26/2019 8:46 PM INDICATION: R ankle and R leg pain after fall COMPARISON: No Prior FINDINGS: Patellar enthesopathy. Vascular calcifications are seen. Diffuse soft tissue swelling about the right ankle. Oblique fracture through the lateral malleolus is nondisplaced. Ankle mortise is congruent. Talar dome is intact. Calcaneal enthesopathy. Midfoot degenerative changes are seen. Soft tissue swelling about the forefoot. IMPRESSION: 1. Oblique fracture lateral malleolus, nondisplaced. 2. Soft tissue swelling about the right ankle. 3. Patellar and calcaneal enthesopathy. Electronically signed by: Facundo Gallegos MD (08/26/2019 11:35 PM) [id number]
[2019-08-26] MEDS ORDERED: cefTRIAXone IV Push 1 GM VIAL. IVP ONE (23:45)
[2019-08-26] MEDS ORDERED: AZITHRMYCN 500MG IVPB FOR OMNI 250 ML IV ONE (23:45)
--- NOTE | 2019-08-26 23:52 | RAD ---
Chest one view. HISTORY: Low O2 saturation AP view was taken of the chest. There is a tunneled dialysis catheter on the right. There is arthritis in both shoulders. There is a large left pleural effusion with left lung atelectasis or infiltrate. There is a small right effusion. Heart is enlarged. IMPRESSION: 1. Large left pleural effusion. Electronically signed by: Tyson Ochoa MD (08/26/2019 11:50 PM) [id number]
--- NOTE | 2019-08-27 02:17 | PHYS DOC ---
Past Medical History Past Medical History: CAD, Diabetes-Type II, High Cholesterol, Hypertension, IA, Renal Failure Past Surgical History: Cholecystectomy, Tonsillectomy Additional Past Surgical Histo: CARDIAC STENT, EYE SX, BONE SPUR L SHOULDER,perma cath Smoking Status: Former Smoker Alcohol Use: None Drug Use: None Adult General Chief Complaint Chief Complaint: MECHANICAL FALL HPI HPI Patient is a 79 year old male, brought to the emergency department by EMS with reports of right ankle pain and swelling after he fell while trying to get into his car this evening. Patient had just completed his dialysis treatment and thought that he was far enough back into the car seat but when he sat down he missed the seat and fell to the ground. He states that his right foot and ankle was caught in the car. Patient denies any loss of consciousness or head injury with the fall. He denies any chest pain, palpitations, dizziness, headache, or vision changes. Patient's at the bedside states that there was 2500 cc taken off during his dialysis treatment today. She also reports that the patient has been having low O2 saturations recently but does not wear oxygen at home. EMS reports that upon arrival the patient's oxygen saturation was 77% on room air, O2 was applied at 4 L via nasal cannula and his saturation increased to 94% with oxygen. Patient denies any fever, cough, nausea, vomiting, diarrhea, or abdominal pain. He currently denies any shortness of breath. He currently rates his pain a 9 out of 10 on the pain scale, the pain increases if he tries to move his right ankle or any pressure is applied. He denies any alleviating factors. Review of Systems Review of Systems Complete ROS is negative unless otherwise noted in HPI. Current Medications Current Medications Current Medications Medications (Trade) Dose Ordered Sig/[place] Start Time Stop Time Status Last Admin Dose Admin Acetaminophen/ Hydrocodone Bitart (Lortab 5/325) 1 tab 1X ONCE 08/26/19 21:15 08/26/19 21:16 DC 08/26/19 21:20 1 TAB Fentanyl Citrate (Fentanyl 2ml Vial) 50 mcg 1X ONCE 08/26/19 23:00 08/26/19 23:01 DC 08/26/19 23:04 50 MCG Allergies Allergies Allergies Coded Allergies Type Severity Reaction Last Updated Verified No Known Medication Allergies Allergy Unknown 06/29/19 Yes Physical Exam Physical Exam See Above Constitutional: Well developed, well nourished, no acute distress, non-toxic appearance. [] HENT: Normocephalic, atraumatic, bilateral external ears normal, nose normal. [] Eyes: PERRLA, EOMI, conjunctiva normal, no discharge. [] Neck: Normal range of motion, no stridor. [] Cardiovascular:Heart rate regular rhythm, no murmur [] Lungs & Thorax: Bilateral breath sounds clear to auscultation in upper lobes, diminished in posterior garcia, regular rate, no retractions [] Abdomen: Bowel sounds normal, soft, no tenderness, no masses, no pulsatile masses. [] Skin: Warm, dry, no erythema, no rash, 2+ edema to BLE R > L , bruising noted to RLE [] Extremities: R lower leg tender to palpation, diffuse R ankle pain tenderness, limited ROM of R ankle and R foot due to pain, no cyanosis, no clubbing, ROM intact, no edema. [] Neurologic: Alert and oriented X 3, no focal deficits noted. [] Psychologic: aggitated affect, judgement normal, mood normal. [] Current Patient Data Vital Signs Vital Signs Date Time Temp Pulse Resp B/P (MAP) Pulse Ox O2 Delivery O2 Flow Rate FiO2 08/26/19 23:06 86 20 95 08/26/19 20:29 97.7 188/86 (120) Room Air 97.7 Lab Values Laboratory Tests Test 08/26/19 21:00 08/26/19 21:35 White Blood Count 6.9 x10^3/uL (4.0-11.0) Red Blood Count 4.09 x10^6/uL (4.30-5.70) L Hemoglobin 12.0 g/dL (13.0-17.5) L Hematocrit 36.6 % (39.0-53.0) L Mean Corpuscular Volume 89 fL (79-100) Mean Corpuscular Hemoglobin 29 pg (25-35) Mean Corpuscular Hemoglobin Concent 33 g/dL (31-37) Red Cell Distribution Width 15.8 % (11.5-14.5) H Platelet Count 225 x10^3/uL (140-400) Neutrophils (%) (Auto) 67 % (31-73) Lymphocytes (%) (Auto) 19 % (24-48) L Monocytes (%) (Auto) 8 % (0-9) Eosinophils (%) (Auto) 4 % (0-3) H Basophils (%) (Auto) 1 % (0-3) Neutrophils # (Auto) 4.6 x10^3/uL (1.8-7.7) Lymphocytes # (Auto) 1.3 x10^3/uL (1.0-4.8) Monocytes # (Auto) 0.6 x10^3/uL (0.0-1.1) Eosinophils # (Auto) 0.3 x10^3/uL (0.0-0.7) Basophils # (Auto) 0.1 x10^3/uL (0.0-0.2) Prothrombin Time 12.6 SEC (11.7-14.0) Prothrombin Time INR 1.0 (0.8-1.1) Activated Partial Thromboplast Time 31 SEC (24-38) Sodium Level 139 mmol/L (136-145) Potassium Level 3.6 mmol/L (3.5-5.1) Chloride Level 103 mmol/L (98-107) Carbon Dioxide Level 28 mmol/L (21-32) Anion Gap 8 (6-14) Blood Urea Nitrogen 25 mg/dL (8-26) Creatinine 2.0 mg/dL (0.7-1.3) H Estimated GFR (Cockcroft-Gault) 32.4 BUN/Creatinine Ratio 13 (6-20) Glucose Level 116 mg/dL (70-99) H Calcium Level 8.1 mg/dL (8.5-10.1) L Total Bilirubin 0.3 mg/dL (0.2-1.0) Aspartate Amino Transferase (AST) 13 U/L (15-37) L Alanine Aminotransferase (ALT) 16 U/L (16-63) Alkaline Phosphatase 62 U/L (46-116) Creatine Kinase 43 U/L (39-308) Creatine Kinase MB (Mass) 0.9 ng/mL (0.0-3.6) Creatine Kinase MB Relative Index % (0-4) Troponin I Quantitative < 0.017 ng/mL (0.000-0.055) GO-Idy-V-Type Natriuretic Peptide 2611 pg/mL (0-449) H Total Protein 5.7 g/dL (6.4-8.2) L Albumin 3.0 g/dL (3.4-5.0) L Albumin/Globulin Ratio 1.1 (1.0-1.7) Laboratory Tests 08/26/19 21:00 Laboratory Tests 08/26/19 21:35 EKG EKG 2030-sinus rhythm rate of 88, nonspecific intraventricular block, abnormal EKG, no STEMI, read by Dr. Lock [] Radiology/Procedures Radiology/Procedures PROCEDURE: TIBIA FIBULA RIGHT EXAM: AP, oblique and lateral views right foot AP, oblique and lateral views right ankle AP and lateral views left tibia/fibula DATE: 08/26/2019 8:46 PM INDICATION: R ankle and R leg pain after fall COMPARISON: No Prior FINDINGS: Patellar enthesopathy. Vascular calcifications are seen. Diffuse soft tissue swelling about the right ankle. Oblique fracture through the lateral malleolus is nondisplaced. Ankle mortise is congruent. Talar dome is intact. Calcaneal enthesopathy. Midfoot degenerative changes are seen. Soft tissue swelling about the forefoot. IMPRESSION: 1. Oblique fracture lateral malleolus, nondisplaced. 2. Soft tissue swelling about the right ankle. 3. Patellar and calcaneal enthesopathy.[] PROCEDURE: CHEST AP ONLY Chest one view. HISTORY: Low O2 saturation AP view was taken of the chest. There is a tunneled dialysis catheter on the right. There is arthritis in both shoulders. There is a large left pleural effusion with left lung atelectasis or infiltrate. There is a small right effusion. Heart is enlarged. IMPRESSION: 1. Large left pleural effusion. Course & Med Decision Making Course & Med Decision Making Pertinent Labs and Imaging studies reviewed. (See chart for details) Patient is a 79-year-old male, who presents to the emergency department with complaints of right lower leg, right ankle, and right foot pain after a fall today. Patient's also reported recent problems with hypoxia. Patient CBC is unremarkable, PT and INR within normal limits, CMP revealed creatinine of 2.0, glucose of 116, calcium of 8.1, and BNP of 2611. Cardiac enz ymes were negative. Chest x-ray revealed a large pleural effusion in the left lung, x-rays of the right ankle reveals oblique fracture of the lateral malleolus that is nondisplaced, soft tissue swelling about the right ankle, and patellar and calcaneal enthesopathy 2319- will admit patient to the hospitalist for a right pleural effusion, hypoxia, fall, and right fibula fracture. Patient given 1 g of Rocephin IV and 500 mg of Zithromax for treatment of right pleural effusion. An ankle air spli nt was applied to the right lower extremity, will consult Dr. Dominique for right fibula fracture. Patient was given 1 hydrocodone and 50 mcg of fentanyl in the emergency room for pain, he reported decreased pain after these medications. POC was discussed with Dr. Lock prior to admit. [] Dragon Disclaimer Dragon Disclaimer This electronic medical record was generated, in whole or in part, using a voice recognition dictation system. Departure Departure Impression: Primary Impression: Pleural effusion, right Additional Impressions: Hypoxia Fall Fracture of right ankle, lateral malleolus Disposition: ADMITTED INPATIENT Admitting Physician: MARYAM Haskins) Condition: STABLE Referrals: JONE BETTENCOURT MD (PCP) Problem Qualifiers Additional Impressions: Fall Encounter type: initial encounter Qualified Codes: W19.XXXA - Unspecified fall, initial encounter Fracture of right ankle, lateral malleolus Encounter type: initial encounter Fracture type: closed Fracture alignment: displaced Qualified Codes: S82.61XA - Displaced fracture of lateral malleolus of right fibula, initial encounter for closed fracture HA MAXWELL APRN Aug 27, 2019 02:16
[2019-08-27 03:05] VITALS: BP 130/56
[2019-08-27] MEDS: fentaNYL PF VIAL 100 MCG/2 ML VIAL IV PRN ×4 (03:44→21:39)
[2019-08-27] MEDS ORDERED: ATOR80TA72 PO (04:39)
[2019-08-27] MEDS ORDERED: METO-313 PO (04:39)
[2019-08-27] MEDS ORDERED: METO25TA4 PO (04:39)
[2019-08-27] MEDS ORDERED: TAMSULOSIN PO (04:39)
[2019-08-27] MEDS ORDERED: LISI40TA2 PO (04:39)
[2019-08-27 07:00] VITALS: BP 162/67
--- NOTE | 2019-08-27 10:08 | EKG ---
[facility] [address] [place] [id number] Test Date: 2019-08-26 Test Time: 20:31:30 Pat Name: LEANA DODD Department: Room: Gender: Respiratory Therapy Director: : 1940 Requested By: HA MAXWELL Order Number: [id number] Reading MD: Measurements Intervals [place] Rate: 88 P: 36 [place]: 162 QRS: 17 QRSD: 154 T: -166 QT: 400 QTc: 488 Interpretive Statements SINUS RHYTHM NON SPECIFIC INTRAVENTRICULAR BLOCK ABNORMAL ECG RI6.01 No previous ECG available for comparison
[2019-08-27] MEDS ORDERED: DEXTROSE 50% 25 GM / 50ML DISP.SYRIN. IV PRN (10:15)
--- NOTE | 2019-08-27 10:17 | NUR ---
SS following for discharge planning. SS reviewed pt chart. Pt is from home with spouse and is currently requiring oxygen. Pt had recent stay at [facility] in June of 2019. Pt has outpatient dialysis at [facility], ; fax [phone], Monday, Monday, and Monday at 1600. SS will continue to follow for discharge planning.
[2019-08-27 10:49] VITALS: BP 164/70
[2019-08-27] MEDS: INSULIN LISPRO 300 UNITS/3 ML VIAL. SQ SCH ×2 (12:00→17:00)
--- NOTE | 2019-08-27 12:42 | CONS ---
DATE OF CONSULTATION: 08/27/2019 REQUESTING CONSULTATION: Willie Brown MD REASON FOR CONSULTATION: Right ankle fracture. HISTORY OF PRESENT ILLNESS: The patient is a 79-year-old male who fell trying to get into his car had immediate onset of right ankle pain, was brought in by EMS. He had just completed his dialysis treatment, but missed the seat due to twisting his ankle and had his right foot and ankle caught in the car when he fell. Denies any loss of consciousness, head injury, but had severe pain better with IV pain medications on his admission. PAST MEDICAL HISTORY: Significant for type 2 diabetes, renal failure, coronary artery disease, hypertension, hypercholesterolemia. PAST SURGICAL HISTORY: Cardiac stent, cholecystectomy, tonsillectomy, left shoulder area has a Perm-A-Cath, and he had eye surgery as well. SOCIAL HISTORY: He is a former smoker, quit many years ago. Denies alcohol or drug use. FAMILY HISTORY: Denies any significant family history. REVIEW OF SYSTEMS: Significant for requiring some oxygen and for the right ankle pain, but denies any fever, chills, chest pain, focal weakness, numbness, tingling, visual changes, radiating pain in the extremities. PHYSICAL EXAMINATION: EXTREMITIES: He is tender over the distal fibula on the right. Skin is intact. Ankle is stable to ligamentous examination. No tenderness over the medial aspect of the right ankle. He was wearing a well-fitting Aircast type splint, which was replaced. He has mildly limited plantar and dorsiflexion terminally on the right side compared to the left. Otherwise, normal examination of the contralateral left foot and ankle, very slight decrease in sensation with neuropathy findings bilaterally, normal alignment and stability of bilateral hips and knees. IMAGING: X-rays show a nondisplaced oblique distal fibula fracture. Ankle joint mortise show some degenerative change, but no instability. IMPRESSION: Right distal fibula fracture. TREATMENT PLAN: He can weightbear as tolerated symptomatically with the Aircast splint for some support. I would like to see him back in about 1 week or thereabouts for repeat examination and x-rays of the right ankle. He was given instructions for a diet after being kept n.p.o. past midnight. MORALES HEADLEY MD DR: ENRIQUE/tyler JOB#: [id number] / [id number]
[2019-08-27] MEDS: METOPROLOL TART IMMED RELEASE 25 MG TABLET. PO SCH ×2 (12:58→21:31)
[2019-08-27] MEDS: ISOSORBIDE MONONITRATE ER 30 MG TAB.ER.24H PO SCH (12:59)
[2019-08-27] MEDS: LISINOPRIL 20 MG TABLET PO SCH (12:59)
[2019-08-27] MEDS: amLODIPine BESYLATE 10 MG TABLET PO SCH (12:59)
[2019-08-27] MEDS: ASPIRIN CHEWABLE 81 MG TABLET. PO SCH (13:00)
[2019-08-27] MEDS: INSULIN GLARGINE SYRINGE. SQ SCH (13:05)
--- NOTE | 2019-08-27 14:33 | PDOC1 ---
History and Physical Date of Admission Date of Admission 08/27/2019 Identification/Chief Complaint Chief Complaint I fell Source Source: Chart review, Patient History of Present Illness History of Present Illness Patient is a 79-year-old gentleman with multiple medical comorbidities including coronary artery disease diabetes type 2 dyslipidemia essential hypertension history of [place] in the past and end-stage renal disease on hemodialysis. The patient apparently was coming out of his dialysis treatment and walking towards his vehicle unfortunately he missed a step and put his foot where it was not supposed to be according to the patient. The patient fell on the ground and hit the concrete and due to his injury he was brought to the emergency department for evaluation. The patient did not hit his head he did not lose consciousness he denies any chest discomfort palpitations lightheadedness or dizziness prior to the event. Patient assures me that this was a slip and fall. Of note is that patient has he is dialysis treatments on Monday. As part of his evaluation in the emergency department he was found to have a significant left pleural effusion but no evidence of pleurisy or dyspnea. The patient denies paroxysmal nocturnal dyspnea no orthopnea no palpitations no chest pain no nausea vomiting diarrhea no sensation of impending doom. Also he was found t o have a fracture of the right ankle reason why we were also asked to admit the patient for orthopedic evaluation. The patient at the time of my evaluation is in no acute distress pain is well controlled the patient denies new events throughout the evening, plan of care has been discussed with orthopedic pricing consultant and with his at bedside. All concerns were addressed to the best of my abilities Past Medical History Cardiovascular: AFIB, CAD, HTN, [place], Hyperlipidemia GI: Diverticulosis Heme/Onc: Anemia NOS Renal/: Chronic renal insuff, Benign prostatic enlarg. Endocrine: Diabetes Past Surgical History Past Surgical History: Arthroscopy, Cholecystectomy, Tonsillectomy, Other Family History Family History: No Significant, Hypertension Social History ALCOHOL: none Drugs: None Current Problem List Problem List Problems Medical Problems: (1) Fracture of right ankle, lateral malleolus Status: Acute Current Medications Current Medications Current Medications Medications (Trade) Dose Ordered Sig/[place] Start Time Stop Time Status Last Admin Dose Admin Acetaminophen/ Hydrocodone Bitart (Lortab 5/325) 1 tab 1X ONCE 08/26/19 21:15 08/26/19 21:16 DC 08/26/19 21:20 1 TAB Amlodipine Besylate (Norvasc) 10 mg DAILY 08/27/19 11:00 08/27/19 12:59 10 MG Aspirin (Children'S Aspirin) 81 mg DAILY 08/27/19 11:00 08/27/19 13:00 81 MG Atorvastatin Calcium (Lipitor) 40 mg QHS 08/27/19 21:00 Azithromycin 250 ml @ 250 mls/hr 1X ONCE 08/26/19 23:45 08/27/19 00:44 DC 08/26/19 23:54 250 MLS/HR Ceftriaxone Sodium (Rocephin) 1 gm 1X ONCE 08/26/19 23:45 08/26/19 23:46 DC 08/26/19 23:54 1 GM Dextrose (Dextrose 50%-Water Syringe) 12.5 gm PRN Q15MIN PRN 08/27/19 10:15 Fentanyl Citrate (Fentanyl 2ml Vial) 50 mcg PRN Q1HR PRN 08/27/19 00:30 08/28/19 00:29 08/27/19 10:35 50 MCG Furosemide (Lasix) 40 mg DAILY 08/28/19 09:00 Insulin Glargine (Lantus Syringe) 20 unit DAILY08 08/27/19 11:00 08/27/19 13:05 20 UNIT Insulin Human Lispro (HumaLOG) 0-7 UNITS TIDWMEALS 08/27/19 12:00 Isosorbide Mononitrate (Imdur) 60 mg DAILY 08/27/19 11:00 08/27/19 12:59 60 MG Lisinopril (Prinivil) 40 mg DAILY 08/27/19 11:00 08/27/19 12:59 40 MG Metoprolol Tartrate (Lopressor) 12.5 mg QHS 08/27/19 21:00 Non-Formulary Medication (Atorvastatin Calcium ) 40 mg DAILY 08/28/19 09:00 UNV Non-Formulary Medication ([Tamsulosin] ) 1 tab DAILY 08/28/19 09:00 UNV Tamsulosin HCl (Flomax) 0.4 mg QHS 08/27/19 21:00 Allergies Allergies Allergies Coded Allergies Type Severity Reaction Last Updated Verified No Known Medication Allergies Allergy Unknown 06/29/19 Yes ROS Review of System CONSTITUTIONAL: No fever or chills EYES: No recent changes SKIN: No rash or itching CARDIOVASCULAR: No chest pain, syncope, palpitations, or edema RESPIRATORY: No SOB or cough GASTROINTESTINAL: No nausea, vomiting or abdominal pain NEUROLOGICAL: No headaches or weakness ENDOCRINE: No cold or heat intolerance GENITOURINARY: No urgency or frequency of urination MUSCULOSKELETAL: No back pain or joint pain LYMPHATICS: No enlarged lymph nodes PSYCHIATRIC: No anxiety or depression Physical Exam Physical Exam Gen.: well-developed well-nourished in no apparent distress Head: Normal shape atraumatic Eyes: Pupils equal reactive to light and accommodation, normal conjunctivae and lids Ears: Normal shape Nose: Normal shape no trauma Mouth: No exudates of the back of throat no thrush no lesions Neck: Supple no JVD no carotid bruit or lymphadenopathy no thyromegaly Chest: Lungs clear to auscultation with good inspiratory effort no crackles ra les or rhonchi Cardiovascular: S1-S2 regular rhythm no murmurs gallops or rubs Abdomen: Bowel sounds present soft nontender no hepatosplenomegaly appreciated sign Extremities: Right lower extremity with significant edema over the ankle area, no clubbing no cyanosis no edema over the left lower extremity, peripheral pulses palpated bilaterally Neurological: Alert awake oriented in person time place and situation, cranial nerves II through XII intact, no motor or sensory deficits appreciated Psych: Appropriate mood, cooperative Vitals Vitals Vital Signs Date Time Temp Pulse Resp B/P (MAP) Pulse Ox O2 Delivery O2 Flow Rate FiO2 08/27/19 12:59 80 164/70 08/27/19 10:49 97.9 19 96 Nasal Cannula 3.0 97.9 Labs Labs Laboratory Tests Test 08/26/19 21:00 08/26/19 21:35 08/27/19 12:27 White Blood Count 6.9 x10^3/uL (4.0-11.0) Red Blood Count 4.09 x10^6/uL (4.30-5.70) Hemoglobin 12.0 g/dL (13.0-17.5) Hematocrit 36.6 % (39.0-53.0) Mean Corpuscular Volume 89 fL (79-100) Mean Corpuscular Hemoglobin 29 pg (25-35) Mean Corpuscular Hemoglobin Concent 33 g/dL (31-37) Red Cell Distribution Width 15.8 % (11.5-14.5) Platelet Count 225 x10^3/uL (140-400) Neutrophils (%) (Auto) 67 % (31-73) Lymphocytes (%) (Auto) 19 % (24-48) Monocytes (%) (Auto) 8 % (0-9) Eosinophils (%) (Auto) 4 % (0-3) Basophils (%) (Auto) 1 % (0-3) Neutrophils # (Auto) 4.6 x10^3/uL (1.8-7.7) Lymphocytes # (Auto) 1.3 x10^3/uL (1.0-4.8) Monocytes # (Auto) 0.6 x10^3/uL (0.0-1.1) Eosinophils # (Auto) 0.3 x10^3/uL (0.0-0.7) Basophils # (Auto) 0.1 x10^3/uL (0.0-0.2) Prothrombin Time 12.6 SEC (11.7-14.0) Prothromb Time International Ratio 1.0 (0.8-1.1) Activated Partial Thromboplast Time 31 SEC (24-38) Sodium Level 139 mmol/L (136-145) Potassium Level 3.6 mmol/L (3.5-5.1) Chloride Level 103 mmol/L (98-107) Carbon Dioxide Level 28 mmol/L (21-32) Anion Gap 8 (6-14) Blood Urea Nitrogen 25 mg/dL (8-26) Creatinine 2.0 mg/dL (0.7-1.3) Estimated GFR (Cockcroft-Gault) 32.4 BUN/Creatinine Ratio 13 (6-20) Glucose Level 116 mg/dL (70-99) Calcium Level 8.1 mg/dL (8.5-10.1) Total Bilirubin 0.3 mg/dL (0.2-1.0) Aspartate Amino Transf (AST/SGOT) 13 U/L (15-37) Alanine Aminotransferase (ALT/SGPT) 16 U/L (16-63) Alkaline Phosphatase 62 U/L (46-116) Creatine Kinase 43 U/L (39-308) Creatine Kinase MB (Mass) 0.9 ng/mL (0.0-3.6) Creatine Kinase MB Relative Index % (0-4) Troponin I Quantitative < 0.017 ng/mL (0.000-0.055) KK-Ihn-A-Type Natriuretic Peptide 2611 pg/mL (0-449) Total Protein 5.7 g/dL (6.4-8.2) Albumin 3.0 g/dL (3.4-5.0) Albumin/Globulin Ratio 1.1 (1.0-1.7) Glucose (Fingerstick) 148 mg/dL (70-99) Laboratory Tests Test 08/26/19 21:00 08/26/19 21:35 08/27/19 12:27 White Blood Count 6.9 x10^3/uL (4.0-11.0) Red Blood Count 4.09 x10^6/uL (4.30-5.70) Hemoglobin 12.0 g/dL (13.0-17.5) Hematocrit 36.6 % (39.0-53.0) Mean Corpuscular Volume 89 fL (79-100) Mean Corpuscular Hemoglobin 29 pg (25-35) Mean Corpuscular Hemoglobin Concent 33 g/dL (31-37) Red Cell Distribution Width 15.8 % (11.5-14.5) Platelet Count 225 x10^3/uL (140-400) Neutrophils (%) (Auto) 67 % (31-73) Lymphocytes (%) (Auto) 19 % (24-48) Monocytes (%) (Auto) 8 % (0-9) Eosinophils (%) (Auto) 4 % (0-3) Basophils (%) (Auto) 1 % (0-3) Neutrophils # (Auto) 4.6 x10^3/uL (1.8-7.7) Lymphocytes # (Auto) 1.3 x10^3/uL (1.0-4.8) Monocytes # (Auto) 0.6 x10^3/uL (0.0-1.1) Eosinophils # (Auto) 0.3 x10^3/uL (0.0-0.7) Basophils # (Auto) 0.1 x10^3/uL (0.0-0.2) Prothrombin Time 12.6 SEC (11.7-14.0) Prothromb Time International Ratio 1.0 (0.8-1.1) Activated Partial Thromboplast Time 31 SEC (24-38) Sodium Level 139 mmol/L (136-145) Potassium Level 3.6 mmol/L (3.5-5.1) Chloride Level 103 mmol/L (98-107) Carbon Dioxide Level 28 mmol/L (21-32) Anion Gap 8 (6-14) Blood Urea Nitrogen 25 mg/dL (8-26) Creatinine 2.0 mg/dL (0.7-1.3) Estimated GFR (Cockcroft-Gault) 32.4 BUN/Creatinine Ratio 13 (6-20) Glucose Level 116 mg/dL (70-99) Calcium Level 8.1 mg/dL (8.5-10.1) Total Bilirubin 0.3 mg/dL (0.2-1.0) Aspartate Amino Transf (AST/SGOT) 13 U/L (15-37) Alanine Aminotransferase (ALT/SGPT) 16 U/L (16-63) Alkaline Phosphatase 62 U/L (46-116) Creatine Kinase 43 U/L (39-308) Creatine Kinase MB (Mass) 0.9 ng/mL (0.0-3.6) Creatine Kinase MB Relative Index % (0-4) Troponin I Quantitative < 0.017 ng/mL (0.000-0.055) UV-Kno-D-Type Natriuretic Peptide 2611 pg/mL (0-449) Total Protein 5.7 g/dL (6.4-8.2) Albumin 3.0 g/dL (3.4-5.0) Albumin/Globulin Ratio 1.1 (1.0-1.7) Glucose (Fingerstick) 148 mg/dL (70-99) VTE Prophylaxis Ordered VTE Prophylaxis Devices: Yes VTE Pharmacological Prophylaxi: Yes Assessment/Plan Assessment/Plan Large left pleural effusion End-stage renal disease on hemodialysis on Monday Status post mechanical fall with subsequent right distal fibula fracture Type 2 diabetes History of coronary artery disease Essential hypertension Hypercholesterolemia Plan: We will request consultation by nephrology Orthopedic recommendations greatly appreciated Patient is asymptomatic at the present time with his large left pleural effusion, I do not see hemodynamic instability nor increased work of breathing Will follow clinically PT evaluation May need placement DVT prophylaxis with heparin CORRIE STONE MD Aug 27, 2019 14:33
[2019-08-27 14:46] VITALS: BP 158/68
--- NOTE | 2019-08-27 14:49 | NUR ---
Wound Care: Patient seen per wound care consult. See wound assessment. Patient has a stage II pressure ulcer to coccyx. Wound cleansed and assessed. Recommendations for calazime cream. Cream applied. No other wounds noted upon complete head to toe assessment. Patient does have large closed callous to the right plantar foot. A P-500 bed ordered for this patient. Dressng change instructions left in room. Patient repositioned in bed and should be turned every 2 hours. Patient educated on turning and pressure relief. Bed lowered and call light in reach. Will follow patient regarding wound care.
[2019-08-27 19:00] VITALS: BP 135/58
[2019-08-27] MEDS: ATORVASTATIN CALCIUM 40 MG TABLET. PO SCH (21:27)
[2019-08-27] MEDS: TAMSULOSIN 0.4 MG CAP.ER.24H. PO SCH (21:28)
[2019-08-27] MEDS: HEPARIN for SUB-Q USE 5,000 UNIT/ML VIAL. SQ SCH (21:47)
[2019-08-27 23:00] VITALS: BP 110/44
[2019-08-28] VITALS (7 sets, daily range): BP systolic 96–139; BP diastolic 36–74
[2019-08-28] MEDS: fentaNYL PF VIAL 100 MCG/2 ML VIAL IVP PRN ×2 (05:45→12:35)
[2019-08-28] MEDS ORDERED: IV NORMAL SALINE 1000ML BAG 1,000 ML IV PRN ×2 (07:52)
[2019-08-28] MEDS: INSULIN LISPRO 300 UNITS/3 ML VIAL. SQ SCH ×3 (08:00→17:00)
[2019-08-28] MEDS: METOPROLOL TART IMMED RELEASE 25 MG TABLET. PO SCH ×2 (08:00→21:22)
[2019-08-28] MEDS ORDERED: ACETAMINOPHEN 500 MG TABLET PO PRN (08:00)
[2019-08-28] MEDS: INSULIN GLARGINE SYRINGE. SQ SCH (08:00)
[2019-08-28] MEDS ORDERED: diphenhydrAMINE 50 MG/ML VIAL IV PRN ×2 (08:00)
[2019-08-28] MEDS ORDERED: DIALYSIS PATIENT. MC PRN (08:00)
[2019-08-28] MEDS: amLODIPine BESYLATE 10 MG TABLET PO SCH (09:00)
[2019-08-28] MEDS: FUROSEMIDE 40 MG TABLET. PO SCH (09:00)
[2019-08-28] MEDS ORDERED: ATORVASTATIN CALCIUM 40 MG PO SCH (09:00)
[2019-08-28] MEDS ORDERED: TAMSULOSIN PO SCH (09:00)
[2019-08-28] MEDS: LISINOPRIL 20 MG TABLET PO SCH (09:00)
[2019-08-28] MEDS: HYDROcodone/APAP 5/325MG 1 TAB TABLET PO PRN ×3 (09:51→23:34)
--- NOTE | 2019-08-28 11:12 | CONS ---
DATE OF CONSULTATION: 08/28/2019 PULMONARY CONSULTATION ATTENDING PHYSICIAN: Dr. Brown. REASON FOR CONSULTATION: Pleural effusion. HISTORY OF PRESENT ILLNESS: The patient is a 79-year-old who has history of coronary artery disease, history of hypertension, history of [place]. He has end-stage renal disease, on hemodialysis. He was brought into the hospital after he fell on the ground and hit the concrete. The patient did not lose any consciousness. He fell on the right side. He was noted to have a chest x-ray, which showed moderate left-sided pleural effusion. He is currently on oxygen. He does not use his oxygen at home. Denies any shortness of breath. Not the best historian. No cough. No fever, no chills, no chest pains. PAST MEDICAL HISTORY: Significant for history of AFib, CAD; hypertension; [place]; hyperlipidemia; diverticulosis; end-stage renal disease, on hemodialysis. PAST SURGICAL HISTORY: Arthroscopy, cholecystectomy, tonsillectomy. FAMILY HISTORY: Nonsignificant, but hypertension. ALLERGIES: None. MEDICATIONS: Reviewed as listed in the MRAD. REVIEW OF SYSTEMS: Pertinent positive discussed in my history of present illness, otherwise noncontributory. All systems that were negative were reviewed as well. PHYSICAL EXAMINATION: VITAL SIGNS: Reviewed. Pulse ox 94% on 3 liters, afebrile. NECK: Supple. LUNGS: With diminished breath sounds left base. CARDIOVASCULAR: Regular rate and rhythm. ABDOMEN: Soft, obese. EXTREMITIES: With a soft cast on the right foot. LABORATORY DATA: Reviewed. White cell count 6.9, hemoglobin 12.0 and platelets are 225. BUN and creatinine is 25 and 2.0. IMPRESSION: 1. Acute hypoxic respiratory failure secondary to left sided pleural effusion. 2. Moderate left sided pleural effusion. Questionable etiology. Hemoglobin has been stable, unlikely related to trauma from the fall, but he would benefit from thoracentesis. 3. End-stage renal disease, on hemodialysis. RECOMMENDATIONS: 1. Discussed with the patient the option of thoracentesis and he is agreeable to that. I have ordered a CT chest to better assess the size of the fluid, before pursuing it. 2. Continue hemodialysis with ultrafiltration. 3. Discussed with Dr. Brown and Dr. Khoury. BEA SANDERS MD DR: DEE DEE/tyler JOB#: [id number] / [id number]
--- NOTE | 2019-08-28 12:24 | RAD ---
Noncontrast CT scan of the chest compared to similar examination dated October 192018 for loculated pleural effusion, dialysis. TECHNIQUE: Contiguous helical 5 mm axial images are obtained from the thoracic inlet to the base of diaphragm. Sagittal and coronal reformations are evaluated. FINDINGS: There is atherosclerosis of the aorta and there is dense coronary artery calcification in multiple distributions. Heart size within normal limits. Small mediastinal lymph nodes are identified, however no suspicious mediastinal, hilar, or axillary lymphadenopathy is seen. There has been a prior cholecystectomy. Evaluation of the upper abdominal organs is limited by lack of IV contrast, however no gross morphologic abnormal abnormalities of the visualized organs are identified. There is ankylosis throughout the thoracic spine. No suspicious osteoblastic or osteolytic bone lesions are seen. There is a large left pleural effusion resulting in right out of the left chest, with complete passive atelectasis of the entire left lung. On the right, there is a small pleural effusion, and there is airspace consolidation involving 2 medial basilar segments of the right lower lobe which may reflect atelectasis or pneumonia. No suspicious lung masses are identified. Central airways are patent. IMPRESSION: 1. Large left pleural effusion resulting in white out of the left chest with complete passive atelectasis of the left lung. 2. Small right pleural effusion with associated multisegmental atelectasis or infiltrate in the right lung base. 3. Severe multifocal coronary artery calcifications. 4. Thoracic spinal ankylosis. PQRS Compliance Statement: One or more of the following individualized dose reduction techniques were utilized for this examination: 1. Automated exposure control 2. Adjustment of the mA and/or kV according to patient size 3. Use of iterative reconstruction technique Electronically signed by: Bereket Plata MD (08/28/2019 12:21 PM) [id number]
[2019-08-28] MEDS: ASPIRIN CHEWABLE 81 MG TABLET. PO SCH (12:39)
[2019-08-28] MEDS: ISOSORBIDE MONONITRATE ER 30 MG TAB.ER.24H PO SCH (12:40)
[2019-08-28] MEDS: HEPARIN for SUB-Q USE 5,000 UNIT/ML VIAL. SQ SCH ×2 (12:46→21:30)
--- NOTE | 2019-08-28 15:07 | NUR ---
The patient underwent thoracentesis, 2 liters of pleural fluid removed per report. He came back to the unit at 1500, VS stable BP 117/ 64 HR 76 RR 18 O2 sat 95% at 2 LPM of oxygen and denies pain. He was placed in comfortable position, call light placed within reach. We will continue to monitor.
--- NOTE | 2019-08-28 15:09 | NUR ---
Non administered anti-HPN meds, patient underwent hemodialysis. Held insulin glargine, patient's blood glucose in the 80s and he did not eat breakfast.
--- NOTE | 2019-08-28 17:30 | RAD ---
Ultrasound-guided left-sided thoracentesis 08/28/2019 3:26 PM Indication: Left Pleural Effusion Procedure: Informed consent was obtained. A timeout procedure was performed. Sonographic evaluation of the left chest was performed demonstrating moderate pleural effusion. The left posterior chest was prepped and draped in sterile fashion. 1% lidocaine without epinephrine was administered for local anesthesia. Real-time ultrasonographic guidance was used in passing a 5 [place] Telanetixeh catheter into the left pleural space. 2.1 min L of serosanguineous pleural fluid was removed. Samples of fluid were sent to the lab for further evaluation per ordering physician request. The catheter was removed and pressure held to achieve hemostasis. A sterile dressing was applied. No immediate complications were identified. The patient tolerated the procedure well. Impression: Left sided ultrasound-guided thoracentesis
[2019-08-28] MEDS: ATORVASTATIN CALCIUM 40 MG TABLET. PO SCH (21:22)
[2019-08-28] MEDS: TAMSULOSIN 0.4 MG CAP.ER.24H. PO SCH (21:22)
--- NOTE | 2019-08-28 21:35 | PDOC ---
PROGRESS NOTES Chief Complaint Chief Complaint Large left pleural effusion End-stage renal disease on hemodialysis on Monday Status post mechanical fall with subsequent right distal fibula fracture Type 2 diabetes History of coronary artery disease Essential hypertension Hypercholesterolemia Plan: Pulmonology recs greatly appreciated will have thoracentesis after dyalisis Orthopedic recommendations greatly appreciated further recommendations based on clinical course PT evaluation May need placement DVT prophylaxis with heparin History of Present Illness History of Present Illness Patient with no new complaints seen at dialysis, plan of care discussed in detail. All concerns addressed to the best of my abilities. Vitals Vitals Vital Signs Date Time Temp Pulse Resp B/P (MAP) Pulse Ox O2 Delivery O2 Flow Rate FiO2 08/28/19 21:22 129/56 08/28/19 19:02 99.3 68 18 95 Nasal Cannula 2.0 99.3 Physical Exam General: Alert, Oriented X3, Cooperative, No acute distress Heart: Regular rate, Normal S1, Normal S2 Lungs: Clear, Crackles Abdomen: Normal bowel sounds, Soft, No tenderness Extremities: No clubbing, No cyanosis, No edema Labs LABS Laboratory Tests Test 08/28/19 07:13 08/28/19 12:22 08/28/19 16:40 08/28/19 20:34 Glucose (Fingerstick) 87 mg/dL (70-99) 85 mg/dL (70-99) 142 mg/dL (70-99) 107 mg/dL (70-99) Assessment and Plan Assessmemt and Plan Problems Medical Problems: (1) Fracture of right ankle, lateral malleolus Status: Acute Comment Review of Relevant I have reviewed the following items kristin (where applicable) has been applied. Labs Laboratory Tests Test 08/26/19 21:35 08/27/19 12:27 08/27/19 16:09 08/27/19 20:42 Sodium Level 139 mmol/L (136-145) Potassium Level 3.6 mmol/L (3.5-5.1) Chloride Level 103 mmol/L (98-107) Carbon Dioxide Level 28 mmol/L (21-32) Anion Gap 8 (6-14) Blood Urea Nitrogen 25 mg/dL (8-26) Creatinine 2.0 mg/dL (0.7-1.3) Estimated GFR (Cockcroft-Gault) 32.4 BUN/Creatinine Ratio 13 (6-20) Glucose Level 116 mg/dL (70-99) Calcium Level 8.1 mg/dL (8.5-10.1) Total Bilirubin 0.3 mg/dL (0.2-1.0) Aspartate Amino Transf (AST/SGOT) 13 U/L (15-37) Alanine Aminotransferase (ALT/SGPT) 16 U/L (16-63) Alkaline Phosphatase 62 U/L (46-116) Creatine Kinase 43 U/L (39-308) Creatine Kinase MB (Mass) 0.9 ng/mL (0.0-3.6) Creatine Kinase MB Relative Index % (0-4) Troponin I Quantitative < 0.017 ng/mL (0.000-0.055) ED-Atj-V-Type Natriuretic Peptide 2611 pg/mL (0-449) Total Protein 5.7 g/dL (6.4-8.2) Albumin 3.0 g/dL (3.4-5.0) Albumin/Globulin Ratio 1.1 (1.0-1.7) Glucose (Fingerstick) 148 mg/dL (70-99) 136 mg/dL (70-99) 133 mg/dL (70-99) Test 08/28/19 07:13 08/28/19 12:22 08/28/19 16:40 08/28/19 20:34 Glucose (Fingerstick) 87 mg/dL (70-99) 85 mg/dL (70-99) 142 mg/dL (70-99) 107 mg/dL (70-99) Laboratory Tests Test 08/28/19 07:13 08/28/19 12:22 08/28/19 16:40 08/28/19 20:34 Glucose (Fingerstick) 87 mg/dL (70-99) 85 mg/dL (70-99) 142 mg/dL (70-99) 107 mg/dL (70-99) Medications Current Medications Acetaminophen/ Hydrocodone Bitart (Lortab 5/325) 1 tab 1X ONCE PO Last administered on 08/26/19at 21:20; Start 08/26/19 at 21:15; Stop 08/26/19 at 21:16; Status DC Fentanyl Citrate (Fentanyl 2ml Vial) 50 mcg 1X ONCE IVP Last administered on 08/26/19at 23:04; Start 08/26/19 at 23:00; Stop 08/26/19 at 23:01; Status DC Ceftriaxone Sodium (Rocephin) 1 gm 1X ONCE IVP Last administered on 08/26/19 23:54; Start 08/26/19 at 23:45; Stop 08/26/19 at 23:46; Status DC Azithromycin 250 ml @ 250 mls/hr 1X ONCE IV Last administered on 08/26/19at 23:54; Start 08/26/19 at 23:45; Stop 08/27/19 at 00:44; Status DC Fentanyl Citrate (Fentanyl 2ml Vial) 50 mcg PRN Q1HR PRN IV PAIN Last administered on 08/27/19 21:39; Start 08/27/19 at 00:30; Stop 08/28/19 at 00:29; Status DC Amlodipine Besylate (Norvasc) 10 mg DAILY PO Last administered on 08/27/19 12:59; Start 08/27/19 at 11:00 Aspirin (Children'S Aspirin) 81 mg DAILY PO Last administered on 08/28/19 12:39; Start 08/27/19 at 11:00 Atorvastatin Calcium (Lipitor) 40 mg QHS PO Last administered on 08/28/19 21:22; Start 08/27/19 at 21:00 Furosemide (Lasix) 40 mg DAILY PO ; Start 08/28/19 at 09:00 Isosorbide Mononitrate (Imdur) 60 mg DAILY PO Last administered on 08/28/19at 12:40; Start 08/27/19 at 11:00 Lisinopril (Prinivil) 40 mg DAILY PO Last administered on 08/27/19 12:59; Start 08/27/19 at 11:00 Metoprolol Tartrate (Lopressor) 25 mg DAILY08 PO Last administered on 08/27/19 12:58; Start 08/27/19 at 11:00 Tamsulosin HCl (Flomax) 0.4 mg QHS PO Last administered on 08/28/19 21:22; Start 08/27/19 at 21:00 Non-Formulary Medication (Atorvastatin Calcium ) 40 mg DAILY PO ; Start 08/28/19 at 09:00; Status UNV Insulin Glargine (Lantus Syringe) 20 unit DAILY08 SQ Last administered on 08/27/19at 13:05; Start 08/27/19 at 11:00 Metoprolol Tartrate (Lopressor) 12.5 mg QHS PO Last administered on 08/28/19at 21:22; Start 08/27/19 at 21:00 Non-Formulary Medication ([Tamsulosin] ) 1 tab DAILY PO ; Start 08/28/19 at 09:00; Status UNV Insulin Human Lispro (HumaLOG) 0-7 UNITS TIDWMEALS SQ ; Start 08/27/19 at 12:00 Dextrose (Dextrose 50%-Water Syringe) 12.5 gm PRN Q15MIN PRN IV SEE COMMENTS; Start 08/27/19 at 10:15 Heparin Sodium (Porcine) (Heparin Sodium) 5,000 unit Q12HR SQ Last administered on 08/28/19at 12:46; Start 08/27/19 at 21:00 Fentanyl Citrate (Fentanyl 2ml Vial) 50 mcg PRN Q4HRS PRN IVP PAIN Last administered on 08/28/19at 12:35; Start 08/28/19 at 05:30 Sodium Chloride 1,000 ml @ 1,000 mls/hr Q1H PRN IV hypotension; Start 08/28/19 at 07:52; Stop 08/28/19 at 13:51; Status DC Acetaminophen (Tylenol) 500 mg 1X PRN PRN PO MILD PAIN / TEMP; Start 08/28/19 at 08:00; Stop 08/29/19 at 07:59 Diphenhydramine HCl (Benadryl) 25 mg 1X PRN PRN IV ITCHING; Start 08/28/19 at 08:00; Stop 08/29/19 at 07:59 Diphenhydramine HCl (Benadryl) 25 mg 1X PRN PRN IV ITCHING; Start 08/28/19 at 08:00; Stop 08/29/19 at 07:59 Sodium Chloride 1,000 ml @ 400 mls/hr Q2H30M PRN IV PATENCY; Start 08/28/19 at 07:52; Stop 08/28/19 at 19:51; Status DC Info (PHARMACY MONITORING -- do not chart) 1 each PRN DAILY PRN MC SEE COMMENTS; Start 08/28/19 at 08:00 Acetaminophen/ Hydrocodone Bitart (Lortab 5/325) 1 tab PRN Q6HRS PRN PO PAIN Last administered on 08/28/19at 16:30; Start 08/28/19 at 09:45 Active Scripts Active Cipro (Ciprofloxacin Hcl) 500 Mg Tablet 1 Tab PO BID 10 Days Lisinopril 40 Mg Tablet 40 Mg PO DAILY Amlodipine Besylate 10 Mg Tablet 10 Mg PO DAILY Isosorbide Mononitrate Er (Isosorbide Mononitrate) 30 Mg Tab.er.24h 60 Mg PO DAILY Reported Lopressor (Metoprolol Tartrate) 100 Mg Tablet 12.5 Mg PO HS Metoprolol Tartrate 25 Mg Tablet 25 Mg PO DAILY08 Lisinopril 40 Mg Tablet 40 Mg PO DAILY Atorvastatin Calcium 80 Mg Tablet 40 Mg PO DAILY [Tamsulosin] 0.4 1 Tab PO DAILY Furosemide 40 Mg Tablet 1 Tab PO DAILY Flomax (Tamsulosin Hcl) 0.4 Mg Cap.er.24h 0.4 Mg PO QHS Aspirin 81 Mg Tab.chew 81 Mg PO DAILY Atorvastatin Calcium 40 Mg Tablet 1 Tab PO QHS 1/2 tab QHS Suzanne Parra U-100 (Insulin Glargine,Hum.rec.anlog) 100 Unit/1 Ml Insuln.pen 20 Unit SQ DAILY Vitals/I & O Vital Sign - Last 24 Hours 08/27/19 08/27/19 08/27/19 08/28/19 21:31 21:39 23:00 03:36 Temp 98.6 98.4 98.6 98.4 Pulse 55 66 Resp 18 16 B/P (MAP) 135/58 110/44 (66) 117/53 (74) Pulse Ox 95 95 O2 Delivery Room Air Nasal Cannula Nasal Cannula O2 Flow Rate 3.0 3.0 08/28/19 08/28/19 08/28/19 08/28/19 05:45 06:45 07:46 08:00 Temp 98.6 98.6 Pulse 69 Resp 19 18 B/P (MAP) 139/46 (77) Pulse Ox 94 94 O2 Delivery Room Air Nasal Cannula Nasal Cannula Nasal Cannula O2 Flow Rate 3.0 3.0 3.0 08/28/19 08/28/19 08/28/19 08/28/19 09:51 10:55 12:35 12:40 Pulse 69 Resp 19 18 B/P (MAP) 139/46 Pulse Ox 94 94 94 O2 Delivery Nasal Cannula Nasal Cannula Nasal Cannula O2 Flow Rate 3.0 3.0 3.0 08/28/19 08/28/19 08/28/19 08/28/19 13:05 14:32 14:46 15:00 Pulse 87 75 76 Resp 19 B/P (MAP) 119/41 (67) 96/36 (56) 117/74 (88) Pulse Ox 95 83 95 95 O2 Delivery Nasal Cannula Nasal Cannula O2 Flow Rate 3.0 2.0 08/28/19 08/28/19 08/28/19 08/28/19 16:30 17:30 19:02 21:22 Temp 99.3 99.3 Pulse 68 Resp 19 18 18 B/P (MAP) 129/56 (80) 129/56 Pulse Ox 95 95 95 O2 Delivery Nasal Cannula Nasal Cannula Nasal Cannula O2 Flow Rate 2.0 2.0 2.0 Intake and Output 08/27/19 08/27/19 08/28/19 15:00 23:00 07:00 Intake Total 300 ml 300 ml 710 ml Output Total 125 ml Balance 300 ml 300 ml 585 ml CORRIE STONE MD Aug 28, 2019 21:35
[2019-08-29 03:53] VITALS: BP 122/50
[2019-08-29 07:50] VITALS: BP 139/48
[2019-08-29] MEDS: INSULIN LISPRO 300 UNITS/3 ML VIAL. SQ SCH ×3 (08:00→17:00)
[2019-08-29] MEDS: METOPROLOL TART IMMED RELEASE 25 MG TABLET. PO SCH ×2 (09:56→21:23)
[2019-08-29] MEDS: LISINOPRIL 20 MG TABLET PO SCH (09:56)
[2019-08-29] MEDS: ISOSORBIDE MONONITRATE ER 30 MG TAB.ER.24H PO SCH (09:56)
[2019-08-29] MEDS: amLODIPine BESYLATE 10 MG TABLET PO SCH (09:57)
[2019-08-29] MEDS: ASPIRIN CHEWABLE 81 MG TABLET. PO SCH (09:57)
[2019-08-29] MEDS: FUROSEMIDE 40 MG TABLET. PO SCH (09:57)
[2019-08-29] MEDS: HEPARIN for SUB-Q USE 5,000 UNIT/ML VIAL. SQ SCH ×2 (10:00→21:29)
[2019-08-29] MEDS: INSULIN GLARGINE SYRINGE. SQ SCH (10:10)
[2019-08-29 11:00] VITALS: BP 113/55
--- NOTE | 2019-08-29 11:26 | PDOC2 ---
CONSULT Date of Consult Date of Consult DATE: 08/29/19 TIME: 11:22 Reason for Consult Reason for Consult: ESRD Referring Physician Referring Physician: AURELIA Identification/Chief Complaint Chief Complaint FALL Source Source: Chart review History of Present Illness Reason for Visit: THIS IS A 79 YR OLD WITH ESRD ON OP HD ON MWF. ADMITTED AFTER A FALL. HAS A RIGHT DISTAL TIB FX THAT IS BEING TREATED MEDICALLY. HE ALSO HAS A MODERATE SIZE PLEURAL EFFUSION. OP HD ON MWF. LABS ARE C/W ESRD. HD VIA [facility] Past Medical History Cardiovascular: AFIB, CAD, HTN, VT, Hyperlipidemia GI: Diverticulosis Heme/Onc: Anemia NOS Renal/: Chronic renal insuff, Benign prostatic enlarg. Endocrine: Diabetes, Hyperparathyroidism Past Surgical History Past Surgical History: Arthroscopy, Cholecystectomy, Tonsillectomy, Other Family History Family History: No Significant, Hypertension Social History ALCOHOL: none Drugs: None Lives: with Family Current Problem List Problem List Problems Medical Problems: (1) Fracture of right ankle, lateral malleolus Status: Acute Current Medications Current Medications Current Medications Acetaminophen/ Hydrocodone Bitart (Lortab 5/325) 1 tab 1X ONCE PO Last administered on 08/26/19at 21:20; Start 08/26/19 at 21:15; Stop 08/26/19 at 21:16; Status DC Fentanyl Citrate (Fentanyl 2ml Vial) 50 mcg 1X ONCE IVP Last administered on 08/26/19at 23:04; Start 08/26/19 at 23:00; Stop 08/26/19 at 23:01; Status DC Ceftriaxone Sodium (Rocephin) 1 gm 1X ONCE IVP Last administered on 08/26/19at 23:54; Start 08/26/19 at 23:45; Stop 08/26/19 at 23:46; Status DC Azithromycin 250 ml @ 250 mls/hr 1X ONCE IV Last administered on 08/26/19at 23:54; Start 08/26/19 at 23:45; Stop 08/27/19 at 00:44; Status DC Fentanyl Citrate (Fentanyl 2ml Vial) 50 mcg PRN Q1HR PRN IV PAIN Last administered on 08/27/19at 21:39; Start 08/27/19 at 00:30; Stop 08/28/19 at 00:29; Status DC Amlodipine Besylate (Norvasc) 10 mg DAILY PO Last administered on 08/29/19 09:57; Start 08/27/19 at 11:00 Aspirin (Children'S Aspirin) 81 mg DAILY PO Last administered on 08/29/19 09:57; Start 08/27/19 at 11:00 Atorvastatin Calcium (Lipitor) 40 mg QHS PO Last administered on 08/28/19 21:22; Start 08/27/19 at 21:00 Furosemide (Lasix) 40 mg DAILY PO Last administered on 08/29/19 09:57; Start 08/28/19 at 09:00 Isosorbide Mononitrate (Imdur) 60 mg DAILY PO Last administered on 08/29/19 09:56; Start 08/27/19 at 11:00 Lisinopril (Prinivil) 40 mg DAILY PO Last administered on 08/29/19 09:56; Start 08/27/19 at 11:00 Metoprolol Tartrate (Lopressor) 25 mg DAILY08 PO Last administered on 08/29/19 09:56; Start 08/27/19 at 11:00 Tamsulosin HCl (Flomax) 0.4 mg QHS PO Last administered on 08/28/19 21:22; Start 08/27/19 at 21:00 Non-Formulary Medication (Atorvastatin Calcium ) 40 mg DAILY PO ; Start 08/28/19 at 09:00; Status UNV Insulin Glargine (Lantus Syringe) 20 unit DAILY08 SQ Last administered on 08/29/19 10:10; Start 08/27/19 at 11:00 Metoprolol Tartrate (Lopressor) 12.5 mg QHS PO Last administered on 08/28/19 21:22; Start 08/27/19 at 21:00 Non-Formulary Medication ([Tamsulosin] ) 1 tab DAILY PO ; Start 08/28/19 at 09:00; Status UNV Insulin Human Lispro (HumaLOG) 0-7 UNITS TIDWMEALS SQ ; Start 08/27/19 at 12:00 Dextrose (Dextrose 50%-Water Syringe) 12.5 gm PRN Q15MIN PRN IV SEE COMMENTS; Start 08/27/19 at 10:15 Heparin Sodium (Porcine) (Heparin Sodium) 5,000 unit Q12HR SQ Last administered on 08/29/19at 10:00; Start 08/27/19 at 21:00 Fentanyl Citrate (Fentanyl 2ml Vial) 50 mcg PRN Q4HRS PRN IVP PAIN Last administered on 08/28/19at 12:35; Start 08/28/19 at 05:30 Sodium Chloride 1,000 ml @ 1,000 mls/hr Q1H PRN IV hypotension; Start 08/28/19 at 07:52; Stop 08/28/19 at 13:51; Status DC Acetaminophen (Tylenol) 500 mg 1X PRN PRN PO MILD PAIN / TEMP; Start 08/28/19 at 08:00; Stop 08/29/19 at 07:59; Status DC Diphenhydramine HCl (Benadryl) 25 mg 1X PRN PRN IV ITCHING; Start 08/28/19 at 08:00; Stop 08/29/19 at 07:59; Status DC Diphenhydramine HCl (Benadryl) 25 mg 1X PRN PRN IV ITCHING; Start 08/28/19 at 08:00; Stop 08/29/19 at 07:59; Status DC Sodium Chloride 1,000 ml @ 400 mls/hr Q2H30M PRN IV PATENCY; Start 08/28/19 at 07:52; Stop 08/28/19 at 19:51; Status DC Info (PHARMACY MONITORING -- do not chart) 1 each PRN DAILY PRN MC SEE COMMENTS; Start 08/28/19 at 08:00 Acetaminophen/ Hydrocodone Bitart (Lortab 5/325) 1 tab PRN Q6HRS PRN PO PAIN Last administered on 08/28/19at 23:34; Start 08/28/19 at 09:45 Active Scripts Active Cipro (Ciprofloxacin Hcl) 500 Mg Tablet 1 Tab PO BID 10 Days Lisinopril 40 Mg Tablet 40 Mg PO DAILY Amlodipine Besylate 10 Mg Tablet 10 Mg PO DAILY Isosorbide Mononitrate Er (Isosorbide Mononitrate) 30 Mg Tab.er.24h 60 Mg PO DAILY Reported Lopressor (Metoprolol Tartrate) 100 Mg Tablet 12.5 Mg PO HS Metoprolol Tartrate 25 Mg Tablet 25 Mg PO DAILY08 Lisinopril 40 Mg Tablet 40 Mg PO DAILY Atorvastatin Calcium 80 Mg Tablet 40 Mg PO DAILY [Tamsulosin] 0.4 1 Tab PO DAILY Furosemide 40 Mg Tablet 1 Tab PO DAILY Flomax (Tamsulosin Hcl) 0.4 Mg Cap.er.24h 0.4 Mg PO QHS Aspirin 81 Mg Tab.chew 81 Mg PO DAILY Atorvastatin Calcium 40 Mg Tablet 1 Tab PO QHS 1/2 tab QHS Basaglar Heshamikpen U-100 (Insulin Glargine,Hum.rec.anlog) 100 Unit/1 Ml Insuln.pen 20 Unit SQ DAILY Allergies Allergies: Coded Allergies: No Known Medication Allergies (Verified Allergy, Unknown, 06/29/19) ROS General: YES: Fatigue, Malaise PSYCHOLOGICAL ROS: YES: Anxiety Eyes: Yes Decreased vision Respiratory: YES: Cough, Shortness of breath Gastrointestinal: Yes Constipation Genitourinary: YES Other (ANURIA) Musculoskeletal: Yes Muscular Weakness, Yes Other (RIGHT HIP PAIN) Neurological: Yes Weakness Skin: Yes Dry Skin Physical Exam General: Alert, Oriented X3, Cooperative, No acute distress HEENT: Atraumatic, PERRLA Lungs: Clear to auscultation Heart: Regular rate Abdomen: Normal bowel sounds, Soft, No tenderness Skin: No breakdown Neuro: Normal speech Psych/Mental Status: Mental status NL MUSCULOSKELETAL: No joint tenderness Vitals VITALS Vital Signs Date Time Temp Pulse Resp B/P (MAP) Pulse Ox O2 Delivery O2 Flow Rate FiO2 08/29/19 11:00 98.4 68 18 113/55 (74) 96 Nasal Cannula 2.0 98.4 Labs Labs Laboratory Tests Test 08/27/19 12:27 08/27/19 16:09 08/27/19 20:42 08/28/19 07:13 Glucose (Fingerstick) 148 mg/dL (70-99) 136 mg/dL (70-99) 133 mg/dL (70-99) 87 mg/dL (70-99) Test 08/28/19 12:22 08/28/19 16:40 08/28/19 20:34 08/29/19 07:48 Glucose (Fingerstick) 85 mg/dL (70-99) 142 mg/dL (70-99) 107 mg/dL (70-99) 92 mg/dL (70-99) Laboratory Tests Test 08/28/19 12:22 08/28/19 16:40 08/28/19 20:34 08/29/19 07:48 Glucose (Fingerstick) 85 mg/dL (70-99) 142 mg/dL (70-99) 107 mg/dL (70-99) 92 mg/dL (70-99) Assessment/Plan Assessment/Plan IMP ESRD ANEMIA PLEURAL EFFUSION HTN R DISTAL TIB FX PLAN HD MWF JONAS WHEN NEEDED THORACENTESIS ORTHO EVAL AND TX WILL FOLLOW ROD PELAEZ MD Aug 29, 2019 11:26
--- NOTE | 2019-08-29 11:46 | PDOC ---
PULMONARY PROGRESS NOTES Subjective s/p thoracentesis 08/27 feels better Vitals Vital Signs Date Time Temp Pulse Resp B/P (MAP) Pulse Ox O2 Delivery O2 Flow Rate FiO2 08/29/19 11:00 98.4 68 18 113/55 (74) 96 Nasal Cannula 2.0 98.4 General: Alert, No acute distress Lungs: Other (decrease bs left) Cardiovascular: S1, S2 Abdomen: Soft, Other Extremities: Other (right cast) Labs Laboratory Tests Test 08/27/19 12:27 08/27/19 16:09 08/27/19 20:42 08/28/19 07:13 Glucose (Fingerstick) 148 mg/dL (70-99) 136 mg/dL (70-99) 133 mg/dL (70-99) 87 mg/dL (70-99) Test 08/28/19 12:22 08/28/19 16:40 08/28/19 20:34 08/29/19 07:48 Glucose (Fingerstick) 85 mg/dL (70-99) 142 mg/dL (70-99) 107 mg/dL (70-99) 92 mg/dL (70-99) Test 08/29/19 11:34 Glucose (Fingerstick) 91 mg/dL (70-99) Laboratory Tests Test 08/28/19 12:22 08/28/19 16:40 08/28/19 20:34 08/29/19 07:48 Glucose (Fingerstick) 85 mg/dL (70-99) 142 mg/dL (70-99) 107 mg/dL (70-99) 92 mg/dL (70-99) Test 08/29/19 11:34 Glucose (Fingerstick) 91 mg/dL (70-99) Medications Active Scripts Medications Dose Route/Sig Max Daily Dose Days Date Category Dose Instructions Lopressor (Metoprolol Tartrate) 100 Mg Tablet 12.5 Mg PO HS 08/27/19 Reported Metoprolol Tartrate 25 Mg Tablet 25 Mg PO DAILY08 08/27/19 Reported Lisinopril 40 Mg Tablet 40 Mg PO DAILY 08/27/19 Reported Atorvastatin Calcium 80 Mg Tablet 40 Mg PO DAILY 08/27/19 Reported [Tamsulosin] 0.4 1 Tab PO DAILY 08/27/19 Reported Cipro (Ciprofloxacin Hcl) 500 Mg Tablet 1 Tab PO BID 10 07/03/19 Rx Furosemide 40 Mg Tablet 1 Tab PO DAILY 06/28/19 Reported Lisinopril 40 Mg Tablet 40 Mg PO DAILY 02/03/19 Rx Amlodipine Besylate 10 Mg Tablet 10 Mg PO DAILY 02/03/19 Rx Isosorbide Mononitrate Er (Isosorbide Mononitrate) 30 Mg Tab.er.24h 60 Mg PO DAILY 02/03/19 Rx Flomax (Tamsulosin Hcl) 0.4 Mg Cap.er.24h 0.4 Mg PO QHS 01/30/19 Reported Aspirin 81 Mg Tab.chew 81 Mg PO DAILY 01/30/19 Reported Atorvastatin Calcium 40 Mg Tablet 1 Tab PO QHS 10/19/18 Reported 1/2 tab QHS Basaglar Kwikpen U-100 (Insulin Glargine,Hum.rec.anlog) 100 Unit/1 Ml Insuln.pen 20 Unit SQ DAILY 10/19/18 Reported Impression . 1. Acute hypoxic respiratory failure secondary to left sided pleural effusion. 2. Large left sided pleural effusion. Questionable etiology. Hemoglobin has been stable, unlikely related to trauma from the fall, s/p L thoracentesis. 3. End-stage renal disease, on hemodialysis. Plan . 1. s/p 2 litres removed with thoracentesis 2. CT chest with no mass 2. Continue hemodialysis with ultrafiltration. 3. Discussed with Dr. Brown and Dr. Khoury.can go home. will check PF results BEA SANDERS MD Aug 29, 2019 11:46
--- NOTE | 2019-08-29 13:29 | NUR ---
PT request for orders: Rehab screen indicates possible need for PT eval and treat. Please order if you agree. Thanks Hardik Carnes PT
--- NOTE | 2019-08-29 14:28 | PDOC ---
PROGRESS NOTES Chief Complaint Chief Complaint Large left pleural effusion End-stage renal disease on hemodialysis on Monday Status post mechanical fall with subsequent right distal fibula fracture Type 2 diabetes History of coronary artery disease Essential hypertension Hypercholesterolemia Plan: Pulmonology recs greatly appreciated will have thoracentesis after dyalisis Orthopedic recommendations greatly appreciated further recommendations based on clinical course PT evaluation May need placement DVT prophylaxis with heparin History of Present Illness History of Present Illness Patient hemodynamically stable, the patient most likely will require placement and this is his second hospital day. Will likely need an extra midnight in order to transfer him to a correction facility will work closely with case management in order to ensure a safe discharge no complaints during my visit Vitals Vitals Vital Signs Date Time Temp Pulse Resp B/P (MAP) Pulse Ox O2 Delivery O2 Flow Rate FiO2 08/29/19 11:00 98.4 68 18 113/55 (74) 96 Nasal Cannula 2.0 98.4 Physical Exam General: Alert, Oriented X3, Cooperative, No acute distress Heart: Regular rate Lungs: Other (decrease bs left) Abdomen: Normal bowel sounds, Soft, No tenderness Extremities: No clubbing, No cyanosis, No edema Skin: No breakdown Labs LABS Laboratory Tests Test 08/28/19 16:40 08/28/19 20:34 08/29/19 07:48 08/29/19 11:34 Glucose (Fingerstick) 142 mg/dL (70-99) 107 mg/dL (70-99) 92 mg/dL (70-99) 91 mg/dL (70-99) Review of Systems Review of Systems Review of systems pertinent as per HPI otherwise 14 point review of system is negative Assessment and Plan Assessmemt and Plan Problems Medical Problems: (1) Fracture of right ankle, lateral malleolus Status: Acute Comment Review of Relevant I have reviewed the following items kristin (where applicable) has been applied. Labs Laboratory Tests Test 08/27/19 16:09 08/27/19 20:42 08/28/19 07:13 08/28/19 12:22 Glucose (Fingerstick) 136 mg/dL (70-99) 133 mg/dL (70-99) 87 mg/dL (70-99) 85 mg/dL (70-99) Test 08/28/19 16:40 08/28/19 20:34 08/29/19 07:48 08/29/19 11:34 Glucose (Fingerstick) 142 mg/dL (70-99) 107 mg/dL (70-99) 92 mg/dL (70-99) 91 mg/dL (70-99) Laboratory Tests Test 08/28/19 16:40 08/28/19 20:34 08/29/19 07:48 08/29/19 11:34 Glucose (Fingerstick) 142 mg/dL (70-99) 107 mg/dL (70-99) 92 mg/dL (70-99) 91 mg/dL (70-99) Medications Current Medications Acetaminophen/ Hydrocodone Bitart (Lortab 5/325) 1 tab 1X ONCE PO Last administered on 08/26/19 21:20; Start 08/26/19 at 21:15; Stop 08/26/19 at 21:16; Status DC Fentanyl Citrate (Fentanyl 2ml Vial) 50 mcg 1X ONCE IVP Last administered on 08/26/19at 23:04; Start 08/26/19 at 23:00; Stop 08/26/19 at 23:01; Status DC Ceftriaxone Sodium (Rocephin) 1 gm 1X ONCE IVP Last administered on 08/26/19at 23:54; Start 08/26/19 at 23:45; Stop 08/26/19 at 23:46; Status DC Azithromycin 250 ml @ 250 mls/hr 1X ONCE IV Last administered on 08/26/19at 23:54; Start 08/26/19 at 23:45; Stop 08/27/19 at 00:44; Status DC Fentanyl Citrate (Fentanyl 2ml Vial) 50 mcg PRN Q1HR PRN IV PAIN Last administered on 08/27/19at 21:39; Start 08/27/19 at 00:30; Stop 08/28/19 at 00:29; Status DC Amlodipine Besylate (Norvasc) 10 mg DAILY PO Last administered on 08/29/19at 09:57; Start 08/27/19 at 11:00 Aspirin (Children'S Aspirin) 81 mg DAILY PO Last administered on 08/29/19 09:57; Start 08/27/19 at 11:00 Atorvastatin Calcium (Lipitor) 40 mg QHS PO Last administered on 08/28/19at 21:22; Start 08/27/19 at 21:00 Furosemide (Lasix) 40 mg DAILY PO Last administered on 08/29/19 09:57; Start 08/28/19 at 09:00 Isosorbide Mononitrate (Imdur) 60 mg DAILY PO Last administered on 08/29/19 09:56; Start 08/27/19 at 11:00 Lisinopril (Prinivil) 40 mg DAILY PO Last administered on 08/29/19 09:56; Start 08/27/19 at 11:00 Metoprolol Tartrate (Lopressor) 25 mg DAILY08 PO Last administered on 08/29/19 09:56; Start 08/27/19 at 11:00 Tamsulosin HCl (Flomax) 0.4 mg QHS PO Last administered on 08/28/19 21:22; Start 08/27/19 at 21:00 Non-Formulary Medication (Atorvastatin Calcium ) 40 mg DAILY PO ; Start 08/28/19 at 09:00; Status UNV Insulin Glargine (Lantus Syringe) 20 unit DAILY08 SQ Last administered on 08/29/19at 10:10; Start 08/27/19 at 11:00 Metoprolol Tartrate (Lopressor) 12.5 mg QHS PO Last administered on 08/28/19 21:22; Start 08/27/19 at 21:00 Non-Formulary Medication ([Tamsulosin] ) 1 tab DAILY PO ; Start 08/28/19 at 09:00; Status UNV Insulin Human Lispro (HumaLOG) 0-7 UNITS TIDWMEALS SQ ; Start 08/27/19 at 12:00 Dextrose (Dextrose 50%-Water Syringe) 12.5 gm PRN Q15MIN PRN IV SEE COMMENTS; Start 08/27/19 at 10:15 Heparin Sodium (Porcine) (Heparin Sodium) 5,000 unit Q12HR SQ Last administered on 08/29/19at 10:00; Start 08/27/19 at 21:00 Fentanyl Citrate (Fentanyl 2ml Vial) 50 mcg PRN Q4HRS PRN IVP PAIN Last administered on 08/28/19at 12:35; Start 08/28/19 at 05:30 Sodium Chloride 1,000 ml @ 1,000 mls/hr Q1H PRN IV hypotension; Start 08/28/19 at 07:52; Stop 08/28/19 at 13:51; Status DC Acetaminophen (Tylenol) 500 mg 1X PRN PRN PO MILD PAIN / TEMP; Start 08/28/19 at 08:00; Stop 08/29/19 at 07:59; Status DC Diphenhydramine HCl (Benadryl) 25 mg 1X PRN PRN IV ITCHING; Start 08/28/19 at 08:00; Stop 08/29/19 at 07:59; Status DC Diphenhydramine HCl (Benadryl) 25 mg 1X PRN PRN IV ITCHING; Start 08/28/19 at 08:00; Stop 08/29/19 at 07:59; Status DC Sodium Chloride 1,000 ml @ 400 mls/hr Q2H30M PRN IV PATENCY; Start 08/28/19 at 07:52; Stop 08/28/19 at 19:51; Status DC Info (PHARMACY MONITORING -- do not chart) 1 each PRN DAILY PRN MC SEE MARSHAL TS; Start 08/28/19 at 08:00 Acetaminophen/ Hydrocodone Bitart (Lortab 5/325) 1 tab PRN Q6HRS PRN PO PAIN Last administered on 08/28/19at 23:34; Start 08/28/19 at 09:45 Active Scripts Active Cipro (Ciprofloxacin Hcl) 500 Mg Tablet 1 Tab PO BID 10 Days Lisinopril 40 Mg Tablet 40 Mg PO DAILY Amlodipine Besylate 10 Mg Tablet 10 Mg PO DAILY Isosorbide Mononitrate Er (Isosorbide Mononitrate) 30 Mg Tab.er.24h 60 Mg PO DAILY Reported Lopressor (Metoprolol Tartrate) 100 Mg Tablet 12.5 Mg PO HS Metoprolol Tartrate 25 Mg Tablet 25 Mg PO DAILY08 Lisinopril 40 Mg Tablet 40 Mg PO DAILY Atorvastatin Calcium 80 Mg Tablet 40 Mg PO DAILY [Tamsulosin] 0.4 1 Tab PO DAILY Furosemide 40 Mg Tablet 1 Tab PO DAILY Flomax (Tamsulosin Hcl) 0.4 Mg Cap.er.24h 0.4 Mg PO QHS Aspirin 81 Mg Tab.chew 81 Mg PO DAILY Atorvastatin Calcium 40 Mg Tablet 1 Tab PO QHS 1/2 tab QHS Basaglar Kwikpen U-100 (Insulin Glargine,Hum.rec.anlog) 100 Unit/1 Ml Insuln.pen 20 Unit SQ DAILY Vitals/I & O Vital Sign - Last 24 Hours 08/28/19 08/28/19 08/28/19 08/28/19 14:32 14:46 15:00 16:30 Pulse 87 75 76 Resp 19 B/P (MAP) 119/41 (67) 96/36 (56) 117/74 (88) Pulse Ox 83 95 95 95 O2 Delivery Nasal Cannula Nasal Cannula O2 Flow Rate 2.0 2.0 08/28/19 08/28/19 08/28/19 08/28/19 17:30 19:02 20:00 21:22 Temp 99.3 99.3 Pulse 68 Resp 18 18 B/P (MAP) 129/56 (80) 129/56 Pulse Ox 95 95 O2 Delivery Nasal Cannula Nasal Cannula Nasal Cannula O2 Flow Rate 2.0 2.0 3.0 08/28/19 08/28/19 08/29/19 08/29/19 23:28 23:34 00:34 03:53 Temp 98.5 98.5 98.5 98.5 Pulse 64 67 Resp 18 18 B/P (MAP) 123/52 (75) 122/50 (74) Pulse Ox 97 96 O2 Delivery Nasal Cannula Nasal Cannula Nasal Cannula Nasal Cannula O2 Flow Rate 2.0 2.0 2.0 08/29/19 08/29/19 08/29/19 08/29/19 07:50 09:56 09:56 09:56 Temp 97.9 97.9 Pulse 91 91 91 91 Resp 16 B/P (MAP) 139/48 (78) 139/48 139/48 139/48 Pulse Ox 94 O2 Delivery Nasal Cannula O2 Flow Rate 2.0 08/29/19 08/29/19 09:57 11:00 Temp 98.4 98.4 Pulse 91 68 Resp 18 B/P (MAP) 139/48 113/55 (74) Pulse Ox 96 O2 Delivery Nasal Cannula O2 Flow Rate 2.0 Intake and Output 08/28/19 08/28/19 08/29/19 14:59 22:59 06:59 Intake Total 200 ml 300 ml 120 ml Output Total 2175 ml Balance -1975 ml 300 ml 120 ml CORRIE STONE MD Aug 29, 2019 14:28
[2019-08-29 15:59] VITALS: BP 121/49
[2019-08-29 19:50] VITALS: BP 127/49
[2019-08-29] MEDS: TAMSULOSIN 0.4 MG CAP.ER.24H. PO SCH (21:22)
[2019-08-29] MEDS: ATORVASTATIN CALCIUM 40 MG TABLET. PO SCH (21:23)
[2019-08-29] MEDS: HYDROcodone/APAP 5/325MG 1 TAB TABLET PO PRN (21:23)
[2019-08-29 23:35] VITALS: BP 135/50
[2019-08-30] MEDS: fentaNYL PF VIAL 100 MCG/2 ML VIAL IVP PRN ×2 (01:33→22:34)
[2019-08-30 03:30] VITALS: BP 122/50
[2019-08-30 07:18] VITALS: BP 138/62
[2019-08-30] MEDS: METOPROLOL TART IMMED RELEASE 25 MG TABLET. PO SCH ×2 (08:00→22:23)
[2019-08-30] MEDS: INSULIN GLARGINE SYRINGE. SQ SCH (08:00)
[2019-08-30] MEDS: INSULIN LISPRO 300 UNITS/3 ML VIAL. SQ SCH ×3 (08:00→17:00)
[2019-08-30] MEDS ORDERED: IV NORMAL SALINE 1000ML BAG 1,000 ML IV PRN (08:03)
[2019-08-30] MEDS: HYDROcodone/APAP 5/325MG 1 TAB TABLET PO PRN ×2 (08:11→14:15)
[2019-08-30] MEDS ORDERED: DIALYSIS PATIENT. MC PRN ×2 (08:15)
[2019-08-30] MEDS ORDERED: ALBUMIN HUMAN 25% 200 ML IV PRN (08:15)
[2019-08-30] MEDS ORDERED: 0.9 % SODIUM CHLORIDE 10 ML DISP.SYRIN. IV PRN ×2 (08:15)
[2019-08-30] MEDS: HEPARIN for SUB-Q USE 5,000 UNIT/ML VIAL. SQ SCH ×2 (09:00→22:29)
--- NOTE | 2019-08-30 09:07 | PATHOLOGY ---
Note [facility] Accession Number: [id number] TESTS RESULT FLAG UNITS REF RANGE LAB Clinician Provided Cytology Information No. of containers..01 Other (Miscellaneous) Source: LEFT PLEURAL FLUID DIAGNOSIS: 02 LEFT PLEURAL FLUID NEGATIVE FOR MALIGNANT CELLS. FOCALLY REACTIVE MESOTHELIAL CELLS IDENTIFIED WITHIN A BACKGROUND OF LYMPHOCYTES, FEW NEUTROPHILS, AND RED BLOOD CELLS. THIS INTERPRETATION INCLUDES EVALUATION OF A CELL BLOCK. Signed out by: 02 Tip Trevino MD, Pathologist NPI- [id number] Performed by: 01 Jeimy Bennett, Mechanical Project Manager ([facility]) Gross description: 01 35ML, RED ORANGE, 1 TP 1 CB /LCS 08/28/2019 1851 Local FLAG LEGEND: L-Low Normal,H-High Normal,LL-Alert Low,HH-Alert High <-Panic Low,>-Panic High,A-Abnormal,AA-Critical Abnormal Performed at: 01 [facility] [place] [address] [place] [address] Hardik Ford MD, 02 [facility] [address] [place] [address] Tip Trevino MD, Specimen Comment: A courtesy copy of this report has been sent to [phone], [phone] Specimen Comment: [phone], Specimen Comment: Report sent to ,DR STONE / DR BETTENCOURT Performed at: 01 [facility] [address], [place], [place] [id number] MD Hardik Ford MD Phone: [phone]
--- NOTE | 2019-08-30 10:47 | SNU/HH DC ---
DISCHARGE WITH HOME HEALTH DISCHARGE INFORMATION: Discharge Date: Aug 30, 2019 Final Diagnosis: Problems Medical Problems: (1) Fracture of right ankle, lateral malleolus Status: Acute Condition on Discharge: Stable CODE STATUS: Code Status: Full HOME HEALTH: Face to Face: I certify this patient is under my care and that I, or a nurse practitioner or physician's multimedia production assistant working with me, had a face to face encounter that meets the physician face to face encounter requirements with this patient on []. RN For Eval/Treatment: Yes Physical Therapy For: Evalulation/Treatment Occupational Therapy For: Evaluation/Treatment Pt Meets Homebound Status: Unsteady balance w/ amb,, Extreme weakness w/ amb., Frequent falls w/ injury POST DISCHARGE ORDERS: Activity Instructions for Disc: Activity as tolerated DIET AFTER DISCHARGE: ADA CHECKS AFTER DISCHARGE: Checks after discharge: Check blood press - daily, Check blood sugar, ac/hs TREATMENT/EQUIPMENT ORDERS: Adaptive Equipment Issued: None CERTIFICATION STATEMENT: Certification Statement: Certification Statement: Based on the above finding, I certify that this patient is confined to the home and needs intermittent mcc care, physical therapy and/or speech therapy, or continues to need occupational therapy.~ This patient is under my care, and I have initiated the establishment of the plan of care.~ This patient will be followed by myself or a community physician who will periodically review the plan of care. Home Meds Active Scripts Lisinopril (LISINOPRIL) 40 Mg Tablet, 40 MG PO DAILY for htn, #30 TAB Prov:DEVORAH EUBANKS MD 02/03/19 Amlodipine Besylate (AMLODIPINE BESYLATE) 10 Mg Tablet, 10 MG PO DAILY for htn, #90 TAB Prov:DEVORAH EUBANKS MD 02/03/19 Isosorbide Mononitrate (ISOSORBIDE MONONITRATE ER) 30 Mg Tab.er.24h, 60 MG PO DAILY for htn, #90 TAB.SR Prov:DEVORAH EUBANKS MD 02/03/19 Reported Medications Metoprolol Tartrate (Lopressor) 100 Mg Tablet, 12.5 MG PO HS for htn, TAB 08/27/19 Metoprolol Tartrate (METOPROLOL TARTRATE) 25 Mg Tablet, 25 MG PO DAILY08 for htn 08/27/19 Lisinopril (Lisinopril) 40 Mg Tablet, 40 MG PO DAILY for htn 08/27/19 Atorvastatin Calcium (Atorvastatin Calcium) 80 Mg Tablet, 40 MG PO DAILY for hyperlipidemia 08/27/19 [Tamsulosin] 0.4 No Conflict Check, 1 TAB PO DAILY 08/27/19 Furosemide (FUROSEMIDE) 40 Mg Tablet, 1 TAB PO DAILY for chf, edema, #30 TAB 5 Refills 06/28/19 Tamsulosin Hcl (FLOMAX) 0.4 Mg Cap.er.24h, 0.4 MG PO QHS for , TAB 01/30/19 Aspirin (ASPIRIN) 81 Mg Tab.chew, 81 MG PO DAILY for , TAB.CHEW 01/30/19 Atorvastatin Calcium (ATORVASTATIN CALCIUM) 40 Mg Tablet, 1 TAB PO QHS for elevated lipids, #30 TAB 5 Refills 1/2 tab QHS 10/19/18 Insulin Glargine,Hum.rec.anlog (Basaglar Kwikpen U-100) 100 Unit/1 Ml Insuln.pen, 20 UNIT SQ DAILY for blood sugar, EACH 10/19/18 Discontinued Scripts Ciprofloxacin Hcl (CIPRO) 500 Mg Tablet, 1 TAB PO BID for GNR uti for 10 Days, #20 TAB 0 Refills Prov:DEVORAH EUBANKS MD 07/03/19 CORRIE STONE MD Aug 30, 2019 10:47
--- NOTE | 2019-08-30 11:10 | PDOC ---
Renal-Progress Notes Subjective Notes Notes NO NEW COMPLAINTS History of Present Illness Hx of present illness STABLE Vitals Vitals Vital Signs Date Time Temp Pulse Resp B/P (MAP) Pulse Ox O2 Delivery O2 Flow Rate FiO2 08/30/19 08:11 Nasal Cannula 2.0 08/30/19 07:18 97.6 78 18 138/62 (87) 94 97.6 Weight Weight [ ] I.O. Intake and Output Intake and Output 08/30/19 07:00 Intake Total 620 ml Output Total 100 ml Balance 520 ml Intake Oral 620 ml Output Urine Total 100 ml Labs Labs Laboratory Tests Test 08/29/19 11:34 08/29/19 16:57 08/29/19 20:47 08/30/19 07:47 Glucose (Fingerstick) 91 mg/dL (70-99) 131 mg/dL (70-99) 148 mg/dL (70-99) 114 mg/dL (70-99) Micro Micro Microbiology 08/28/19 Aerobic and Anaerobic Culture, Resulted Pending 08/28/19 Anaerobic Culture Result 1 (FLORINA), Resulted Pending 08/28/19 Aerobic Culture, Resulted Pending 08/28/19 Aerobic Culture Result 1 (FLORINA), Resulted Pending 08/28/19 Gram Stain - Final, Resulted 08/28/19 Gram Stain Result 1 (FLORINA) - Final, Resulted 08/28/19 Gram Stain Result 2 (FLORINA) - Final, Resulted Assessment Assessment IMP ESRD ANEMIA PLEURAL EFFUSION S/P THORACENTESIS HTN R DISTAL TIB FX PLAN HD TODAY UF TO DW JONAS WHEN NEEDED ORTHO EVAL AND TX WILL FOLLOW ROD PELAEZ MD Aug 30, 2019 11:10
--- NOTE | 2019-08-30 11:14 | PDOC3 ---
Discharge Summary Visit Information Date of Admission: Aug 27, 2019 Date of Discharge: Aug 30, 2019 Admitting Diagnosis Comment: Large left pleural effusion End-stage renal disease on hemodialysis on Monday Status post mechanical fall with subsequent right distal fibula fracture Type 2 diabetes History of coronary artery disease Essential hypertension Hypercholesterolemia Final Diagnosis Large left pleural effusion status post thoracentesis End-stage renal disease on hemodialysis on Monday Status post mechanical fall with subsequent right distal fibula fracture Type 2 diabetes History of coronary artery disease Essential hypertension Hypercholesterolemia Brief Hospital Course Allergies Allergies Coded Allergies Type Severity Reaction Last Updated Verified No Known Medication Allergies Allergy Unknown 06/29/19 Yes Vital Signs Vital Signs Date Time Temp Pulse Resp B/P (MAP) Pulse Ox O2 Delivery O2 Flow Rate FiO2 08/30/19 08:11 Nasal Cannula 2.0 08/30/19 07:18 97.6 78 18 138/62 (87) 94 97.6 Lab Results Laboratory Tests Test 08/28/19 12:22 08/28/19 16:40 08/28/19 20:34 08/29/19 07:48 Glucose (Fingerstick) 85 mg/dL (70-99) 142 mg/dL (70-99) 107 mg/dL (70-99) 92 mg/dL (70-99) Test 08/29/19 11:34 08/29/19 16:57 08/29/19 20:47 08/30/19 07:47 Glucose (Fingerstick) 91 mg/dL (70-99) 131 mg/dL (70-99) 148 mg/dL (70-99) 114 mg/dL (70-99) Laboratory Tests Test 08/29/19 11:34 08/29/19 16:57 08/29/19 20:47 08/30/19 07:47 Glucose (Fingerstick) 91 mg/dL (70-99) 131 mg/dL (70-99) 148 mg/dL (70-99) 114 mg/dL (70-99) Brief Hospital Course Patient is a 79-year-old gentleman with multiple medical comorbidities including coronary artery disease diabetes type 2 dyslipidemia essential hypertension history of OH in the past and end-stage renal disease on hemodialysis. The patient apparently was coming out of his dialysis treatment and walking towards his vehicle unfortunately he missed a step and put his foot where it was not supposed to be according to the patient. The patient fell on the ground and hit the concrete and due to his injury he was brought to the emergency department for evaluation. The patient did not hit his head he did not lose consciousness he denies any chest discomfort palpitations lightheadedness or dizziness prior to the event. Patient assures me that this was a slip and fall. Of note is that patient has he is dialysis treatments on Monday. As part of his evaluation in the emergency department he was found to have a significant left pleural effusion but no evidence of pleurisy or dyspnea. The patient denies paroxysmal nocturnal dyspnea no orthopnea no palpitations no chest pain no nausea vomiting diarrhea no sensation of impending doom. Also he was found to have a fracture of the right ankle reason why we were also asked to admit the patient for orthopedic evaluation. Dr. Dominique saw the patient and recommended nonoperative management with support brace. The patient is able to do partial weightbearing as tolerated. The jason amanda also was noted to have a significant pleural effusion on the left side. The patient underwent a thoracentesis throughout her his hospital stay. At the time of this note results are not finalized from the culture standpoint of view but no organisms were isolated. There was no malignant cells and focally reactive mesothelial cells identified within a background of lymphocytes few neutrophils and red blood cells on his pathology. The patient received dialysis on Monday and Monday as his usual schedule and he will be going home with home health. The patient is quite upset this morning and does not seem to comprehend everything but when I asked nursing staff of alteration in mentation they relate to me that he is very boisterous and somewhat verbally abusive to them on a regular basis. He would not cooperate fully with the neurological assessment but he was able to move all his extremities his cranial nerves were intact and he would not answer my questions regarding orientation but is he seems to be quite oriented at the present time. He asked questions like what am I supposed to do with my life to which I tried to explain to him that at the present time he needs to continue with his rehabilitation through home health and that Dr. Dominique will follow him up in the outpatient setting for his ankle fracture. Case management is helping us also arrange physical therapy at home and visiting nurse so he can have the best outcome possible. Greater than 35 minutes were spent in the discharge process with the patient in counseling coordination of care and arrangements for a safe discharge Physical Exam General: Alert, Oriented X3, Cooperative, No acute distress Heart: Regular rate Lungs: Other (decrease bs left) Abdomen: Normal bowel sounds, Soft, No tenderness Extremities: No clubbing, No cyanosis, No edema Skin: No breakdown Assessment Assessment PATIENT: LEANA DODD ACCOUNT: [id number] : 1940 LOCATION: [facility] AGE: 79 SEX: M EXAM STATUS: ADM IN ORD. PHYSICIAN: BEA SANDERS MD REASON: Left Pleural Effusion PROCEDURE: [id number] THORACENT/ASPIR W/ IMG Ultrasound-guided left-sided thoracentesis 08/28/2019 3:26 PM Indication: Left Pleural Effusion Procedure: Informed consent was obtained. A timeout procedure was performed. Sonographic evaluation of the left chest was performed demonstrating moderate pleural effusion. The left posterior chest was prepped and draped in sterile fashion. 1% lidocaine without epinephrine was administered for local anesthesia. Real-time ultrasonographic guidance was used in passing a 5 [employer] catheter into the left pleural space. 2.1 min L of serosanguineous pleural fluid was removed. Samples of fluid were sent to the lab for further evaluation per ordering physician request. The catheter was removed and pressure held to achieve hemostasis. A sterile dressing was applied. No immediate complications were identified. The patient tolerated the procedure well. Impression: Left sided ultrasound-guided thoracentesis Discharge Information Condition at Discharge: Improved Follow Up: Weeks Disposition/Orders: D/C to Home w/ HH Scheduled Amlodipine Besylate (Amlodipine Besylate) 10 Mg Tablet, 10 MG PO DAILY for htn, #90 Prescribed by: DEVORAH EUBANKS on 02/03/19 1139 Last Action: Continued on 08/27/19 1011 by CORRIE STONE MD Aspirin (Aspirin) 81 Mg Tab.chew, 81 MG PO DAILY for , (Reported) Entered as Reported by: Mark Price on 01/30/19 1023 Last Action: Continued on 08/27/19 1011 by CORRIE STONE MD Atorvastatin Calcium (Atorvastatin Calcium) 40 Mg Tablet, 1 TAB PO QHS for elevated lipids, #30 Ref 5 (Reported) 1/2 tab QHS Entered as Reported by: SURINDER COLEMAN on 10/19/18 1154 Last Action: Continued on 08/27/19 101 by CORRIE STONE MD Atorvastatin Calcium (Atorvastatin Calcium) 80 Mg Tablet, 40 MG PO DAILY for hyperlipidemia, (Reported) Entered as Reported by: Surinder Bermudez on 08/27/19438 Last Action: Converted on 08/27/19 1011 by CORRIE STONE MD Furosemide (Furosemide) 40 Mg Tablet, 1 TAB PO DAILY for chf, edema, #30 Ref 5 (Reported) Entered as Reported by: LORNA SMITH on 06/28/19 0959 Last Action: Continued on 08/27/19 1011 by CORRIE STONE MD Insulin Glargine,Hum.rec.anlog (Basaglar Kwikpen U-100) 100 Unit/1 Ml Insuln.pen, 20 UNIT SQ DAILY for blood sugar, (Reported) Entered as Reported by: SURINDER COLEMAN on 10/19/18 1154 Last Action: Converted on 08/27/191010 by CORRIE STONE MD Isosorbide Mononitrate (Isosorbide Mononitrate Er) 30 Mg Tab.er.24h, 60 MG PO DAILY for htn, #90 Prescribed by: DEVORAH EUBANKS on 02/03/19 113 Last Action: Continued on 08/27/191010 by CORRIE STONE MD Lisinopril (Lisinopril) 40 Mg Tablet, 40 MG PO DAILY for htn, #30 Prescribed by: DEVORAH EUBANKS on 02/03/19 1139 Last Action: Continued on 08/27/191 by CORRIE STONE MD Lisinopril (Lisinopril) 40 Mg Tablet, 40 MG PO DAILY for htn, (Reported) Entered as Reported by: Surinder Bermudez on 08/27/19438 Last Action: HELD on 08/27/19 101 by CORRIE STONE MD Metoprolol Tartrate (Metoprolol Tartrate) 25 Mg Tablet, 25 MG PO DAILY08 for htn, (Reported) Entered as Reported by: Surinder Bermudez on 08/27/19438 Last Action: Continued on 08/27/19 1011 by CORRIE STONE MD Metoprolol Tartrate (Lopressor) 100 Mg Tablet, 12.5 MG PO HS for htn, (Reported) Entered as Reported by: Surinder Bermudez on 08/27/19438 Last Action: Converted on 08/27/191010 by CORRIE STONE MD Tamsulosin Hcl (Flomax) 0.4 Mg Cap.er.24h, 0.4 MG PO QHS for , (Reported) Entered as Reported by: Mark Price on 01/30/19 1023 Last Action: Continued on 08/27/19 101 by CORRIE STONE MD [Tamsulosin] 0.4 , 1 TAB PO DAILY, (Reported) Entered as Reported by: Surinder Bermudez on 08/27/19438 Last Action: Converted on 08/27/19 101 by CORRIE STONE MD Discontinued Medications Ciprofloxacin Hcl (Cipro) 500 Mg Tablet, 1 TAB PO BID for GNR uti for 10 Days, #20 Ref 0 Prescribed by: DEVORAH EUBANKS on 07/03/19 0859 Last Action: HELD on 08/27/19 101 by MD BERTHA ENAMORADO HECTOR M MD Aug 30, 2019 11:14
--- NOTE | 2019-08-30 12:01 | NUR ---
SS following up with discharge planning. Discharge orders received for home with home healthcare. SS contacted pt's spouse and was notified that pt was previously on services with [facility], ; fax [phone]. Pt's spouse reported that she would like PT/OT to evaluate pt prior to leaving to be sure he is able to get up and down stairs as she has to take him to dialysis. Pt's RN notified. SS phoned and faxed referral and discharge orders to [facility].
[2019-08-30] MEDS: LISINOPRIL 20 MG TABLET PO SCH (13:58)
[2019-08-30] MEDS: FUROSEMIDE 40 MG TABLET. PO SCH (13:59)
[2019-08-30] MEDS: ISOSORBIDE MONONITRATE ER 30 MG TAB.ER.24H PO SCH (13:59)
[2019-08-30] MEDS: amLODIPine BESYLATE 10 MG TABLET PO SCH (14:00)
[2019-08-30] MEDS: ASPIRIN CHEWABLE 81 MG TABLET. PO SCH (14:00)
[2019-08-30 15:18] VITALS: BP 142/72
--- NOTE | 2019-08-30 15:43 | NUR ---
SS following up with discharge planning. PT evaluated pt and recommended detention unit. SS spoke with pt's spouse via phone and pt's spouse reported that pt did want to go to detention unit and reported that they do not want to return to [facility]. Pt's spouse requesting to go to [facility], ; fax [phone]. SS phoned and faxed referral to [facility]. SS will await acceptance decision and will proceed accordingly with discharge planning.
[2019-08-30 19:48] VITALS: BP 103/42
[2019-08-30] MEDS: TAMSULOSIN 0.4 MG CAP.ER.24H. PO SCH (22:23)
[2019-08-30] MEDS: ATORVASTATIN CALCIUM 40 MG TABLET. PO SCH (22:23)
[2019-08-30 23:25] VITALS: BP 118/57
[2019-08-31 07:18] VITALS: BP 152/68
[2019-08-31] MEDS: INSULIN LISPRO 300 UNITS/3 ML VIAL. SQ SCH ×4 (08:00→17:00)
[2019-08-31] MEDS: METOPROLOL TART IMMED RELEASE 25 MG TABLET. PO SCH ×2 (08:00→20:36)
[2019-08-31] MEDS: INSULIN GLARGINE SYRINGE. SQ SCH (08:00)
[2019-08-31] MEDS: FUROSEMIDE 40 MG TABLET. PO SCH (09:00)
[2019-08-31] MEDS: HEPARIN for SUB-Q USE 5,000 UNIT/ML VIAL. SQ SCH ×2 (09:00→20:42)
[2019-08-31] MEDS: ISOSORBIDE MONONITRATE ER 30 MG TAB.ER.24H PO SCH (09:00)
[2019-08-31] MEDS: ASPIRIN CHEWABLE 81 MG TABLET. PO SCH (09:00)
[2019-08-31] MEDS: LISINOPRIL 20 MG TABLET PO SCH (09:00)
[2019-08-31] MEDS: amLODIPine BESYLATE 10 MG TABLET PO SCH (09:00)
[2019-08-31 11:35] VITALS: BP 162/51
--- NOTE | 2019-08-31 12:01 | PDOC ---
PROGRESS NOTES Chief Complaint Chief Complaint Large left pleural effusion End-stage renal disease on hemodialysis on Monday Status post mechanical fall with subsequent right distal fibula fracture Type 2 diabetes History of coronary artery disease Essential hypertension Hypercholesterolemia Plan: Pulmonology recs greatly appreciated Orthopedic recommendations greatly appreciated follow up in one week at Dr Dominique's office. further recommendations based on clinical course PT evaluation CM working on placement since patient was unable to be discharged home with home health. DVT prophylaxis with heparin History of Present Illness History of Present Illness Patient hemodynamically stable, the patient most likely will require placement and this is his second hospital day. Will likely need an extra midnight in [facility] will work closely with case management in order to ensure a safe discharge no complaints during my visit Vitals Vitals Vital Signs Date Time Temp Pulse Resp B/P (MAP) Pulse Ox O2 Delivery O2 Flow Rate FiO2 08/31/19 11:35 97.9 68 22 162/51 (88) 96 Nasal Cannula 2.0 97.9 Physical Exam General: Alert, Oriented X3, Cooperative, No acute distress Heart: Regular rate Lungs: Other (decrease bs left) Abdomen: Normal bowel sounds, Soft, No tenderness Extremities: No clubbing, No cyanosis, No edema Skin: No breakdown Labs LABS Laboratory Tests Test 08/30/19 13:15 08/30/19 16:05 08/30/19 21:09 08/31/19 07:28 Glucose (Fingerstick) 87 mg/dL (70-99) 194 mg/dL (70-99) 146 mg/dL (70-99) 109 mg/dL (70-99) Test 08/31/19 10:46 Glucose (Fingerstick) 153 mg/dL (70-99) Review of Systems Review of Systems Review of systems pertinent as per HPI otherwise 14 point review of system is negative Assessment and Plan Assessmemt and Plan Problems Medical Problems: (1) Fracture of right ankle, lateral malleolus Status: Acute Comment Review of Relevant I have reviewed the following items kristin (where applicable) has been applied. Labs Laboratory Tests Test 08/29/19 16:57 08/29/19 20:47 08/30/19 07:47 08/30/19 13:15 Glucose (Fingerstick) 131 mg/dL (70-99) 148 mg/dL (70-99) 114 mg/dL (70-99) 87 mg/dL (70-99) Test 08/30/19 16:05 08/30/19 21:09 08/31/19 07:28 08/31/19 10:46 Glucose (Fingerstick) 194 mg/dL (70-99) 146 mg/dL (70-99) 109 mg/dL (70-99) 153 mg/dL (70-99) Laboratory Tests Test 08/30/19 13:15 08/30/19 16:05 08/30/19 21:09 08/31/19 07:28 Glucose (Fingerstick) 87 mg/dL (70-99) 194 mg/dL (70-99) 146 mg/dL (70-99) 109 mg/dL (70-99) Test 08/31/19 10:46 Glucose (Fingerstick) 153 mg/dL (70-99) Microbiology 08/28/19 Aerobic and Anaerobic Culture, Resulted Pending 08/28/19 Anaerobic Culture Result 1 (FLORINA), Resulted Pending 08/28/19 Aerobic Culture - Preliminary, Resulted 08/28/19 Aerobic Culture Result 1 (FLORINA) - Preliminary, Resulted 08/28/19 Gram Stain - Final, Resulted 08/28/19 Gram Stain Result 1 (FLORINA) - Final, Resulted 08/28/19 Gram Stain Result 2 (FLORINA) - Final, Resulted Medications Current Medications Acetaminophen/ Hydrocodone Bitart (Lortab 5/325) 1 tab 1X ONCE PO Last administered on 08/26/19at 21:20; Start 08/26/19 at 21:15; Stop 08/26/19 at 21:16; Status DC Fentanyl Citrate (Fentanyl 2ml Vial) 50 mcg 1X ONCE IVP Last administered on 08/26/19at 23:04; Start 08/26/19 at 23:00; Stop 08/26/19 at 23:01; Status DC Ceftriaxone Sodium (Rocephin) 1 gm 1X ONCE IVP Last administered on 08/26/19at 23:54; Start 08/26/19 at 23:45; Stop 08/26/19 at 23:46; Status DC Azithromycin 250 ml @ 250 mls/hr 1X ONCE IV Last administered on 08/26/19at 23:54; Start 08/26/19 at 23:45; Stop 08/27/19 at 00:44; Status DC Fentanyl Citrate (Fentanyl 2ml Vial) 50 mcg PRN Q1HR PRN IV PAIN Last administered on 08/27/19 21:39; Start 08/27/19 at 00:30; Stop 08/28/19 at 00:29; Status DC Amlodipine Besylate (Norvasc) 10 mg DAILY PO Last administered on 08/30/19 14:00; Start 08/27/19 at 11:00 Aspirin (Children'S Aspirin) 81 mg DAILY PO Last administered on 08/30/19 14:00; Start 08/27/19 at 11:00 Atorvastatin Calcium (Lipitor) 40 mg QHS PO Last administered on 08/30/19 22:23; Start 08/27/19 at 21:00 Furosemide (Lasix) 40 mg DAILY PO Last administered on 08/30/19 13:59; Start 08/28/19 at 09:00 Isosorbide Mononitrate (Imdur) 60 mg DAILY PO Last administered on 08/30/19 13:59; Start 08/27/19 at 11:00 Lisinopril (Prinivil) 40 mg DAILY PO Last administered on 08/30/19 13:58; Start 08/27/19 at 11:00 Metoprolol Tartrate (Lopressor) 25 mg DAILY08 PO Last administered on 08/29/19 09:56; Start 08/27/19 at 11:00 Tamsulosin HCl (Flomax) 0.4 mg QHS PO Last administered on 08/30/19 22:23; Start 08/27/19 at 21:00 Non-Formulary Medication (Atorvastatin Calcium ) 40 mg DAILY PO ; Start 08/28/19 at 09:00; Status UNV Insulin Glargine (Lantus Syringe) 20 unit DAILY08 SQ Last administered on 08/29/19 10:10; Start 08/27/19 at 11:00 Metoprolol Tartrate (Lopressor) 12.5 mg QHS PO Last administered on 08/30/19 22:23; Start 08/27/19 at 21:00 Non-Formulary Medication ([Tamsulosin] ) 1 tab DAILY PO ; Start 08/28/19 at 09:00; Status UNV Insulin Human Lispro (HumaLOG) 0-7 UNITS TIDWMEALS SQ ; Start 08/27/19 at 12:00 Dextrose (Dextrose 50%-Water Syringe) 12.5 gm PRN Q15MIN PRN IV SEE COMMENTS; Start 08/27/19 at 10:15 Heparin Sodium (Porcine) (Heparin Sodium) 5,000 unit Q12HR SQ Last administered on 08/30/19at 22:29; Start 08/27/19 at 21:00 Fentanyl Citrate (Fentanyl 2ml Vial) 50 mcg PRN Q4HRS PRN IVP PAIN Last administered on 08/30/19at 22:34; Start 08/28/19 at 05:30 Sodium Chloride 1,000 ml @ 1,000 mls/hr Q1H PRN IV hypotension; Start 08/28/19 at 07:52; Stop 08/28/19 at 13:51; Status DC Acetaminophen (Tylenol) 500 mg 1X PRN PRN PO MILD PAIN / TEMP; Start 08/28/19 at 08:00; Stop 08/29/19 at 07:59; Status DC Diphenhydramine HCl (Benadryl) 25 mg 1X PRN PRN IV ITCHING; Start 08/28/19 at 08:00; Stop 08/29/19 at 07:59; Status DC Diphenhydramine HCl (Benadryl) 25 mg 1X PRN PRN IV ITCHING; Start 08/28/19 at 08:00; Stop 08/29/19 at 07:59; Status DC Sodium Chloride 1,000 ml @ 400 mls/hr Q2H30M PRN IV PATENCY; Start 08/28/19 at 07:52; Stop 08/28/19 at 19:51; Status DC Info (PHARMACY MONITORING -- do not chart) 1 each PRN DAILY PRN MC SEE COMMENTS; Start 08/28/19 at 08:00 Acetaminophen/ Hydrocodone Bitart (Lortab 5/325) 1 tab PRN Q6HRS PRN PO PAIN Last administered on 08/30/19at 14:15; Start 08/28/19 at 09:45 Sodium Chloride 1,000 ml @ 1,000 mls/hr Q1H PRN IV hypotension; Start 08/30/19 at 08:03; Stop 08/30/19 at 14:02; Status DC Albumin Human 200 ml @ 200 mls/hr 1X PRN PRN IV Hypotension; Start 08/30/19 at 08:15; Stop 08/30/19 at 14:14; Status DC Sodium Chloride (Normal Saline Flush) 10 ml 1X PRN PRN IV AP catheter pack; Start 08/30/19 at 08:15; Stop 08/31/19 at 09:45; Status DC Sodium Chloride (Normal Saline Flush) 10 ml 1X PRN PRN IV BAND [employer] catheter pack; Start 08/30/19 at 08:15; Stop 08/31/19 at 09:45; Status DC Info (PHARMACY MONITORING -- do not chart) 1 each PRN DAILY PRN MC SEE COMMENTS; Start 08/30/19 at 08:15; Status UNV Info (PHARMACY MONITORING -- do not chart) 1 each PRN DAILY PRN MC SEE COMMENTS; Start 08/30/19 at 08:15; Status UNV Active Scripts Active Lisinopril 40 Mg Tablet 40 Mg PO DAILY Amlodipine Besylate 10 Mg Tablet 10 Mg PO DAILY Isosorbide Mononitrate Er (Isosorbide Mononitrate) 30 Mg Tab.er.24h 60 Mg PO DAILY Reported Lopressor (Metoprolol Tartrate) 100 Mg Tablet 12.5 Mg PO HS Metoprolol Tartrate 25 Mg Tablet 25 Mg PO DAILY08 Lisinopril 40 Mg Tablet 40 Mg PO DAILY Atorvastatin Calcium 80 Mg Tablet 40 Mg PO DAILY [Tamsulosin] 0.4 1 Tab PO DAILY Furosemide 40 Mg Tablet 1 Tab PO DAILY Flomax (Tamsulosin Hcl) 0.4 Mg Cap.er.24h 0.4 Mg PO QHS Aspirin 81 Mg Tab.chew 81 Mg PO DAILY Atorvastatin Calcium 40 Mg Tablet 1 Tab PO QHS 1/2 tab QHS Suzanne Parra U-100 (Insulin Glargine,Hum.rec.anlog) 100 Unit/1 Ml Insuln.pen 20 Unit SQ DAILY Vitals/I & O Vital Sign - Last 24 Hours 08/30/19 08/30/19 08/30/19 08/30/19 13:58 13:59 14:00 14:15 Pulse 69 69 69 B/P (MAP) 141/56 141/56 141/56 O2 Delivery Nasal Cannula O2 Flow Rate 1.0 08/30/19 08/30/19 08/30/19 08/30/19 15:15 15:18 19:48 20:00 Temp 99.5 97.5 99.5 97.5 Pulse 98 70 Resp 18 16 B/P (MAP) 142/72 (95) 103/42 (62) Pulse Ox 96 95 O2 Delivery Nasal Cannula Nasal Cannula Nasal Cannula Nasal Cannula O2 Flow Rate 2.0 2.0 2.0 08/30/19 08/30/19 08/31/19 08/31/19 22:23 23:25 07:18 08:10 Temp 98.3 97.8 98.3 97.8 Pulse 70 72 87 Resp 16 20 B/P (MAP) 103/42 118/57 (77) 152/68 (96) Pulse Ox 94 98 O2 Delivery Nasal Cannula Nasal Cannula Nasal Cannula O2 Flow Rate 2.0 2.0 2.0 08/31/19 11:35 Temp 97.9 97.9 Pulse 68 Resp 22 B/P (MAP) 162/51 (88) Pulse Ox 96 O2 Delivery Nasal Cannula O2 Flow Rate 2.0 Intake and Output 08/30/19 08/30/19 08/31/19 15:00 23:00 07:00 Intake Total 550 ml 360 ml Output Total 250 ml 50 ml 150 ml Balance 300 ml 310 ml -150 ml CORRIE STONE MD Aug 31, 2019 12:01
[2019-08-31] MEDS: HYDROcodone/APAP 5/325MG 1 TAB TABLET PO PRN ×2 (12:53→20:38)
[2019-08-31 15:15] VITALS: BP 152/62
[2019-08-31 19:08] VITALS: BP 143/56
[2019-08-31] MEDS: ATORVASTATIN CALCIUM 40 MG TABLET. PO SCH (20:36)
[2019-08-31] MEDS: TAMSULOSIN 0.4 MG CAP.ER.24H. PO SCH (20:36)
[2019-08-31] MEDS: fentaNYL PF VIAL 100 MCG/2 ML VIAL IVP PRN (20:37)
[2019-08-31 23:37] VITALS: BP 135/54
[2019-09-01] MEDS: HYDROcodone/APAP 5/325MG 1 TAB TABLET PO PRN ×3 (02:32→23:23)
[2019-09-01 03:24] VITALS: BP 143/56
[2019-09-01 07:18] VITALS: BP 132/56
[2019-09-01] MEDS: INSULIN LISPRO 300 UNITS/3 ML VIAL. SQ SCH ×3 (08:00→17:32)
[2019-09-01] MEDS: INSULIN GLARGINE SYRINGE. SQ SCH (08:00)
[2019-09-01] MEDS: ISOSORBIDE MONONITRATE ER 30 MG TAB.ER.24H PO SCH (08:52)
[2019-09-01] MEDS: ASPIRIN CHEWABLE 81 MG TABLET. PO SCH (08:52)
[2019-09-01] MEDS: LISINOPRIL 20 MG TABLET PO SCH (08:52)
[2019-09-01] MEDS: METOPROLOL TART IMMED RELEASE 25 MG TABLET. PO SCH ×2 (08:53→23:23)
[2019-09-01] MEDS: amLODIPine BESYLATE 10 MG TABLET PO SCH (08:53)
[2019-09-01] MEDS: FUROSEMIDE 40 MG TABLET. PO SCH (08:53)
[2019-09-01] MEDS: HEPARIN for SUB-Q USE 5,000 UNIT/ML VIAL. SQ SCH ×2 (09:08→23:30)
--- NOTE | 2019-09-01 09:42 | PDOC ---
PROGRESS NOTES Chief Complaint Chief Complaint Large left pleural effusion End-stage renal disease on hemodialysis on Monday Status post mechanical fall with subsequent right distal fibula fracture Type 2 diabetes History of coronary artery disease Essential hypertension Hypercholesterolemia Plan: Pulmonology recs greatly appreciated Orthopedic recommendations greatly appreciated follow up in one week at Dr Dominique's office for repeat x rays further recommendations based on clinical course PT evaluation CM working on placement since patient was unable to be discharged home with home health. DVT prophylaxis with heparin History of Present Illness History of Present Illness Patient hemodynamically stable, the patient most likely will require placement and this is his second hospital day. Will likely need an extra midnight in [facility] will work closely with case management in order to ensure a safe discharge no complaints during my visit Vitals Vitals Vital Signs Date Time Temp Pulse Resp B/P (MAP) Pulse Ox O2 Delivery O2 Flow Rate FiO2 09/01/19 08:53 76 132/56 09/01/19 07:18 98.8 18 96 Nasal Cannula 1.0 98.8 Physical Exam General: Alert, Oriented X3, Cooperative, No acute distress Heart: Regular rate Lungs: Other (decrease bs left) Abdomen: Normal bowel sounds, Soft, No tenderness Extremities: No clubbing, No cyanosis, No edema Skin: No breakdown Labs LABS Laboratory Tests Test 08/31/19 10:46 08/31/19 16:24 08/31/19 20:52 09/01/19 07:11 Glucose (Fingerstick) 153 mg/dL (70-99) 119 mg/dL (70-99) 145 mg/dL (70-99) 106 mg/dL (70-99) Review of Systems Review of Systems Review of systems pertinent as per HPI otherwise 14 point review of system is negative Assessment and Plan Assessmemt and Plan Problems Medical Problems: (1) Fracture of right ankle, lateral malleolus Status: Acute Comment Review of Relevant I have reviewed the following items kristin (where applicable) has been applied. Labs Laboratory Tests Test 08/30/19 13:15 08/30/19 16:05 08/30/19 21:09 08/31/19 07:28 Glucose (Fingerstick) 87 mg/dL (70-99) 194 mg/dL (70-99) 146 mg/dL (70-99) 109 mg/dL (70-99) Test 08/31/19 10:46 08/31/19 16:24 08/31/19 20:52 09/01/19 07:11 Glucose (Fingerstick) 153 mg/dL (70-99) 119 mg/dL (70-99) 145 mg/dL (70-99) 106 mg/dL (70-99) Laboratory Tests Test 08/31/19 10:46 08/31/19 16:24 08/31/19 20:52 09/01/19 07:11 Glucose (Fingerstick) 153 mg/dL (70-99) 119 mg/dL (70-99) 145 mg/dL (70-99) 106 mg/dL (70-99) Microbiology 08/28/19 Aerobic and Anaerobic Culture, Resulted Pending 08/28/19 Anaerobic Culture Result 1 (FLORINA), Resulted Pending 08/28/19 Aerobic Culture - Final, Resulted 08/28/19 Aerobic Culture Result 1 (FLORINA) - Final, Resulted 08/28/19 Gram Stain - Final, Resulted 08/28/19 Gram Stain Result 1 (FLORINA) - Final, Resulted 08/28/19 Gram Stain Result 2 (FLORINA) - Final, Resulted Medications Current Medications Acetaminophen/ Hydrocodone Bitart (Lortab 5/325) 1 tab 1X ONCE PO Last administered on 08/26/19 21:20; Start 08/26/19 at 21:15; Stop 08/26/19 at 21:16; Status DC Fentanyl Citrate (Fentanyl 2ml Vial) 50 mcg 1X ONCE IVP Last administered on 08/26/19at 23:04; Start 08/26/19 at 23:00; Stop 08/26/19 at 23:01; Status DC Ceftriaxone Sodium (Rocephin) 1 gm 1X ONCE IVP Last administered on 08/26/19 23:54; Start 08/26/19 at 23:45; Stop 08/26/19 at 23:46; Status DC Azithromycin 250 ml @ 250 mls/hr 1X ONCE IV Last administered on 08/26/19 23:54; Start 08/26/19 at 23:45; Stop 08/27/19 at 00:44; Status DC Fentanyl Citrate (Fentanyl 2ml Vial) 50 mcg PRN Q1HR PRN IV PAIN Last administered on 08/27/19at 21:39; Start 08/27/19 at 00:30; Stop 08/28/19 at 00:29; Status DC Amlodipine Besylate (Norvasc) 10 mg DAILY PO Last administered on 09/01/19 08:53; Start 08/27/19 at 11:00 Aspirin (Children'S Aspirin) 81 mg DAILY PO Last administered on 09/01/19 08:52; Start 08/27/19 at 11:00 Atorvastatin Calcium (Lipitor) 40 mg QHS PO Last administered on 08/31/19 20:36; Start 08/27/19 at 21:00 Furosemide (Lasix) 40 mg DAILY PO Last administered on 09/01/19 08:53; Start 08/28/19 at 09:00 Isosorbide Mononitrate (Imdur) 60 mg DAILY PO Last administered on 09/01/19 08:52; Start 08/27/19 at 11:00 Lisinopril (Prinivil) 40 mg DAILY PO Last administered on 09/01/19 08:52; Start 08/27/19 at 11:00 Metoprolol Tartrate (Lopressor) 25 mg DAILY08 PO Last administered on 09/01/19 08:53; Start 08/27/19 at 11:00 Tamsulosin HCl (Flomax) 0.4 mg QHS PO Last administered on 08/31/19 20:36; Start 08/27/19 at 21:00 Non-Formulary Medication (Atorvastatin Calcium ) 40 mg DAILY PO ; Start 08/28/19 at 09:00; Status UNV Insulin Glargine (Lantus Syringe) 20 unit DAILY08 SQ Last administered on 09/01/19 08:00; Start 08/27/19 at 11:00 Metoprolol Tartrate (Lopressor) 12.5 mg QHS PO Last administered on 08/31/19 20:36; Start 08/27/19 at 21:00 Non-Formulary Medication ([Tamsulosin] ) 1 tab DAILY PO ; Start 08/28/19 at 09:00; Status UNV Insulin Human Lispro (HumaLOG) 0-7 UNITS TIDWMEALS SQ Last administered on 08/31/19at 12:00; Start 08/27/19 at 12:00 Dextrose (Dextrose 50%-Water Syringe) 12.5 gm PRN Q15MIN PRN IV SEE COMMENTS; Start 08/27/19 at 10:15 Heparin Sodium (Porcine) (Heparin Sodium) 5,000 unit Q12HR SQ Last administered on 09/01/19at 09:08; Start 08/27/19 at 21:00 Fentanyl Citrate (Fentanyl 2ml Vial) 50 mcg PRN Q4HRS PRN IVP PAIN Last administered on 08/31/19at 20:37; Start 08/28/19 at 05:30 Sodium Chloride 1,000 ml @ 1,000 mls/hr Q1H PRN IV hypotension; Start 08/28/19 at 07:52; Stop 08/28/19 at 13:51; Status DC Acetaminophen (Tylenol) 500 mg 1X PRN PRN PO MILD PAIN / TEMP; Start 08/28/19 at 08:00; Stop 08/29/19 at 07:59; Status DC Diphenhydramine HCl (Benadryl) 25 mg 1X PRN PRN IV ITCHING; Start 08/28/19 at 08:00; Stop 08/29/19 at 07:59; Status DC Diphenhydramine HCl (Benadryl) 25 mg 1X PRN PRN IV ITCHING; Start 08/28/19 at 08:00; Stop 08/29/19 at 07:59; Status DC Sodium Chloride 1,000 ml @ 400 mls/hr Q2H30M PRN IV PATENCY; Start 08/28/19 at 07:52; Stop 08/28/19 at 19:51; Status DC Info (PHARMACY MONITORING -- do not chart) 1 each PRN DAILY PRN MC SEE COMMENTS; Start 08/28/19 at 08:00 Acetaminophen/ Hydrocodone Bitart (Lortab 5/325) 1 tab PRN Q6HRS PRN PO PAIN Last administered on 09/01/19at 02:32; Start 08/28/19 at 09:45 Sodium Chloride 1,000 ml @ 1,000 mls/hr Q1H PRN IV hypotension; Start 08/30/19 at 08:03; Stop 08/30/19 at 14:02; Status DC Albumin Human 200 ml @ 200 mls/hr 1X PRN PRN IV Hypotension; Start 08/30/19 at 08:15; Stop 08/30/19 at 14:14; Status DC Sodium Chloride (Normal Saline Flush) 10 ml 1X PRN PRN IV AP catheter pack; Start 08/30/19 at 08:15; Stop 08/31/19 at 09:45; Status DC Sodium Chloride (Normal Saline Flush) 10 ml 1X PRN PRN IV [employer] catheter pack; Start 08/30/19 at 08:15; Stop 08/31/19 at 09:45; Status DC Info (PHARMACY MONITORING -- do not chart) 1 each PRN DAILY PRN MC SEE COMMENTS; Start 08/30/19 at 08:15; Status UNV Info (PHARMACY MONITORING -- do not chart) 1 each PRN DAILY PRN MC SEE COMMENTS; Start 08/30/19 at 08:15; Status UNV Active Scripts Active Lisinopril 40 Mg Tablet 40 Mg PO DAILY Amlodipine Besylate 10 Mg Tablet 10 Mg PO DAILY Isosorbide Mononitrate Er (Isosorbide Mononitrate) 30 Mg Tab.er.24h 60 Mg PO DAILY Reported Lopressor (Metoprolol Tartrate) 100 Mg Tablet 12.5 Mg PO HS Metoprolol Tartrate 25 Mg Tablet 25 Mg PO DAILY08 Lisinopril 40 Mg Tablet 40 Mg PO DAILY Atorvastatin Calcium 80 Mg Tablet 40 Mg PO DAILY [Tamsulosin] 0.4 1 Tab PO DAILY Furosemide 40 Mg Tablet 1 Tab PO DAILY Flomax (Tamsulosin Hcl) 0.4 Mg Cap.er.24h 0.4 Mg PO QHS Aspirin 81 Mg Tab.chew 81 Mg PO DAILY Atorvastatin Calcium 40 Mg Tablet 1 Tab PO QHS 1/2 tab QHS Basaglar Norrispen U-100 (Insulin Glargine,Hum.rec.anlog) 100 Unit/1 Ml Insuln.pen 20 Unit SQ DAILY Vitals/I & O Vital Sign - Last 24 Hours 08/31/19 08/31/19 08/31/19 08/31/19 11:35 12:53 13:54 15:15 Temp 97.9 98.2 97.9 98.2 Pulse 68 92 Resp 22 17 17 18 B/P (MAP) 162/51 (88) 152/62 (92) Pulse Ox 96 96 O2 Delivery Nasal Cannula Room Air Nasal Cannula Nasal Cannula O2 Flow Rate 2.0 1.0 1.0 2.0 08/31/19 08/31/19 08/31/19 08/31/19 19:08 19:20 20:36 21:45 Temp 98.8 98.8 Pulse 74 74 Resp 18 B/P (MAP) 143/56 (85) 143/56 Pulse Ox 93 O2 Delivery Nasal Cannula Nasal Cannula Nasal Cannula O2 Flow Rate 2.0 2.5 2.0 08/31/19 09/01/19 09/01/19 09/01/19 23:37 02:32 03:24 07:18 Temp 97.3 98.4 98.8 97.3 98.4 98.8 Pulse 68 72 76 Resp 18 18 18 B/P (MAP) 135/54 (81) 143/56 (85) 132/56 (81) Pulse Ox 93 91 96 O2 Delivery Nasal Cannula High Flow Nasal Cannula Nasal Cannula Nasal Cannula O2 Flow Rate 2.0 2.0 1.0 1.0 09/01/19 09/01/19 09/01/19 09/01/19 08:52 08:52 08:53 08:53 Pulse 76 76 76 76 B/P (MAP) 132/56 132/56 132/56 132/56 Intake and Output 08/31/19 08/31/19 09/01/19 15:00 23:00 07:00 Intake Total 360 ml 310 ml 150 ml Output Total 50 ml 100 ml 350 ml Balance 310 ml 210 ml -200 ml CORRIE STONE MD Sep 01, 2019 09:42
[2019-09-01] MEDS ORDERED: POLYETHYLENE GLYCOL 3350 17 GM PACKET. PO ONE (10:30)
[2019-09-01] MEDS ORDERED: SENNOSIDES 8.6 MG TABLET PO ONE (10:30)
[2019-09-01 11:22] VITALS: BP 132/58
[2019-09-01 15:19] VITALS: BP 131/46
[2019-09-01 19:19] VITALS: BP 124/45
[2019-09-01] MEDS: TAMSULOSIN 0.4 MG CAP.ER.24H. PO SCH (23:23)
[2019-09-01] MEDS: ATORVASTATIN CALCIUM 40 MG TABLET. PO SCH (23:23)
[2019-09-01 23:36] VITALS: BP 134/49
[2019-09-02 03:16] VITALS: BP 120/50
[2019-09-02 07:00] VITALS: BP 147/56
[2019-09-02] MEDS ORDERED: IV NORMAL SALINE 1000ML BAG 1,000 ML IV PRN ×2 (07:42)
[2019-09-02] MEDS ORDERED: diphenhydrAMINE 50 MG/ML VIAL IV PRN ×2 (07:45)
[2019-09-02] MEDS ORDERED: DIALYSIS PATIENT. MC PRN (07:45)
[2019-09-02] MEDS: INSULIN LISPRO 300 UNITS/3 ML VIAL. SQ SCH ×3 (08:00→17:44)
--- NOTE | 2019-09-02 09:17 | PDOC ---
PROGRESS NOTES Chief Complaint Chief Complaint Large left pleural effusion End-stage renal disease on hemodialysis on Monday Status post mechanical fall with subsequent right distal fibula fracture Type 2 diabetes History of coronary artery disease Essential hypertension Hypercholesterolemia Plan: Pulmonology recs greatly appreciated Orthopedic recommendations greatly appreciated follow up in one week at Dr Dominique's office for repeat x rays further recommendations based on clinical course PT evaluation CM working on placement since patient was unable to be discharged home with home health. DVT prophylaxis with heparin History of Present Illness History of Present Illness Mr Wiggins is a 79-year-old male w/ MPHx DM2, CAD, HTN, and new ESRD on HD MWF who presents to the emergency department with complaints of right distal fibula fracture after a mechanical fall and large left pleural effusion s/p thoracentesis on 08/27 of 2.1L. Seen on dialysis today. Feeling ok. No CP. SOB improved. Vitals Vitals Vital Signs Date Time Temp Pulse Resp B/P (MAP) Pulse Ox O2 Delivery O2 Flow Rate FiO2 09/02/19 07:00 98.1 76 20 147/56 (86) 93 Nasal Cannula 2.0 98.1 Physical Exam General: Alert, Oriented X3, Cooperative, No acute distress Heart: Regular rate Lungs: Other (decrease bs left) Abdomen: Normal bowel sounds, Soft, No tenderness Extremities: No clubbing, No cyanosis, No edema Skin: No breakdown Labs LABS Laboratory Tests Test 09/01/19 10:37 09/01/19 15:16 09/01/19 20:33 09/02/19 07:45 Glucose (Fingerstick) 98 mg/dL (70-99) 156 mg/dL (70-99) 162 mg/dL (70-99) 102 mg/dL (70-99) Assessment and Plan Assessmemt and Plan Problems Medical Problems: (1) Fracture of right ankle, lateral malleolus Status: Acute Comment Review of Relevant I have reviewed the following items kristin (where applicable) has been applied. Labs Laboratory Tests Test 08/31/19 10:46 08/31/19 16:24 08/31/19 20:52 09/01/19 07:11 Glucose (Fingerstick) 153 mg/dL (70-99) 119 mg/dL (70-99) 145 mg/dL (70-99) 106 mg/dL (70-99) Test 09/01/19 10:37 09/01/19 15:16 09/01/19 20:33 09/02/19 07:45 Glucose (Fingerstick) 98 mg/dL (70-99) 156 mg/dL (70-99) 162 mg/dL (70-99) 102 mg/dL (70-99) Laboratory Tests Test 09/01/19 10:37 09/01/19 15:16 09/01/19 20:33 09/02/19 07:45 Glucose (Fingerstick) 98 mg/dL (70-99) 156 mg/dL (70-99) 162 mg/dL (70-99) 102 mg/dL (70-99) Microbiology 08/28/19 Aerobic and Anaerobic Culture, Resulted Pending 08/28/19 Anaerobic Culture Result 1 (FLORINA), Resulted Pending 08/28/19 Aerobic Culture - Final, Resulted 08/28/19 Aerobic Culture Result 1 (FLORINA) - Final, Resulted 08/28/19 Gram Stain - Final, Resulted 08/28/19 Gram Stain Result 1 (FLORINA) - Final, Resulted 08/28/19 Gram Stain Result 2 (FLORINA) - Final, Resulted Medications Current Medications Acetaminophen/ Hydrocodone Bitart (Lortab 5/325) 1 tab 1X ONCE PO Last administered on 08/26/19at 21:20; Start 08/26/19 at 21:15; Stop 08/26/19 at 21:16; Status DC Fentanyl Citrate (Fentanyl 2ml Vial) 50 mcg 1X ONCE IVP Last administered on 08/26/19at 23:04; Start 08/26/19 at 23:00; Stop 08/26/19 at 23:01; Status DC Ceftriaxone Sodium (Rocephin) 1 gm 1X ONCE IVP Last administered on 08/26/19at 23:54; Start 08/26/19 at 23:45; Stop 08/26/19 at 23:46; Status DC Azithromycin 250 ml @ 250 mls/hr 1X ONCE IV Last administered on 08/26/19at 23:54; Start 08/26/19 at 23:45; Stop 08/27/19 at 00:44; Status DC Fentanyl Citrate (Fentanyl 2ml Vial) 50 mcg PRN Q1HR PRN IV PAIN Last administered on 08/27/19at 21:39; Start 08/27/19 at 00:30; Stop 08/28/19 at 00:29; Status DC Amlodipine Besylate (Norvasc) 10 mg DAILY PO Last administered on 09/01/19 08:53; Start 08/27/19 at 11:00 Aspirin (Children'S Aspirin) 81 mg DAILY PO Last administered on 09/01/19 08:52; Start 08/27/19 at 11:00 Atorvastatin Calcium (Lipitor) 40 mg QHS PO Last administered on 09/01/19 23:23; Start 08/27/19 at 21:00 Furosemide (Lasix) 40 mg DAILY PO Last administered on 09/01/19 08:53; Start 08/28/19 at 09:00 Isosorbide Mononitrate (Imdur) 60 mg DAILY PO Last administered on 09/01/19 08:52; Start 08/27/19 at 11:00 Lisinopril (Prinivil) 40 mg DAILY PO Last administered on 09/01/19 08:52; Start 08/27/19 at 11:00 Metoprolol Tartrate (Lopressor) 25 mg DAILY08 PO Last administered on 09/01/19 08:53; Start 08/27/19 at 11:00 Tamsulosin HCl (Flomax) 0.4 mg QHS PO Last administered on 09/01/19 23:23; Start 08/27/19 at 21:00 Non-Formulary Medication (Atorvastatin Calcium ) 40 mg DAILY PO ; Start 08/28/19 at 09:00; Status UNV Insulin Glargine (Lantus Syringe) 20 unit DAILY08 SQ Last administered on 09/01/19 08:00; Start 08/27/19 at 11:00 Metoprolol Tartrate (Lopressor) 12.5 mg QHS PO Last administered on 09/01/19 23:23; Start 08/27/19 at 21:00 Non-Formulary Medication ([Tamsulosin] ) 1 tab DAILY PO ; Start 08/28/19 at 09:00; Status UNV Insulin Human Lispro (HumaLOG) 0-7 UNITS TIDWMEALS SQ Last administered on 09/01/19at 17:32; Start 08/27/19 at 12:00 Dextrose (Dextrose 50%-Water Syringe) 12.5 gm PRN Q15MIN PRN IV SEE COMMENTS; Start 08/27/19 at 10:15 Heparin Sodium (Porcine) (Heparin Sodium) 5,000 unit Q12HR SQ Last administered on 09/01/19at 23:30; Start 08/27/19 at 21:00 Fentanyl Citrate (Fentanyl 2ml Vial) 50 mcg PRN Q4HRS PRN IVP PAIN Last administered on 08/31/19at 20:37; Start 08/28/19 at 05:30 Sodium Chloride 1,000 ml @ 1,000 mls/hr Q1H PRN IV hypotension; Start 08/28/19 at 07:52; Stop 08/28/19 at 13:51; Status DC Acetaminophen (Tylenol) 500 mg 1X PRN PRN PO MILD PAIN / TEMP; Start 08/28/19 at 08:00; Stop 08/29/19 at 07:59; Status DC Diphenhydramine HCl (Benadryl) 25 mg 1X PRN PRN IV ITCHING; Start 08/28/19 at 08:00; Stop 08/29/19 at 07:59; Status DC Diphenhydramine HCl (Benadryl) 25 mg 1X PRN PRN IV ITCHING; Start 08/28/19 at 08:00; Stop 08/29/19 at 07:59; Status DC Sodium Chloride 1,000 ml @ 400 mls/hr Q2H30M PRN IV PATENCY; Start 08/28/19 at 07:52; Stop 08/28/19 at 19:51; Status DC Info (PHARMACY MONITORING -- do not chart) 1 each PRN DAILY PRN MC SEE COMMENTS; Start 08/28/19 at 08:00 Acetaminophen/ Hydrocodone Bitart (Lortab 5/325) 1 tab PRN Q6HRS PRN PO PAIN Last administered on 09/01/19at 23:23; Start 08/28/19 at 09:45 Sodium Chloride 1,000 ml @ 1,000 mls/hr Q1H PRN IV hypotension; Start 08/30/19 at 08:03; Stop 08/30/19 at 14:02; Status DC Albumin Human 200 ml @ 200 mls/hr 1X PRN PRN IV Hypotension; Start 08/30/19 at 08:15; Stop 08/30/19 at 14:14; Status DC Sodium Chloride (Normal Saline Flush) 10 ml 1X PRN PRN IV AP catheter pack; Start 08/30/19 at 08:15; Stop 08/31/19 at 09:45; Status DC Sodium Chloride (Normal Saline Flush) 10 ml 1X PRN PRN IV LEAD RECOVERER catheter pack; Start 08/30/19 at 08:15; Stop 08/31/19 at 09:45; Status DC Info (PHARMACY MONITORING -- do not chart) 1 each PRN DAILY PRN MC SEE COMMENTS; Start 08/30/19 at 08:15; Status UNV Info (PHARMACY MONITORING -- do not chart) 1 each PRN DAILY PRN MC SEE COMMENTS; Start 08/30/19 at 08:15; Status UNV Sennosides (Senna) 17.2 mg 1X ONCE PO Last administered on 09/01/19at 11:02; Start 09/01/19 at 10:30; Stop 09/01/19 at 10:31; Status DC Polyethylene Glycol (miraLAX PACKET) 17 gm 1X ONCE PO Last administered on 09/01/19at 11:03; Start 09/01/19 at 10:30; Stop 09/01/19 at 10:31; Status DC Sodium Chloride 1,000 ml @ 1,000 mls/hr Q1H PRN IV hypotension; Start 09/02/19 at 07:42; Stop 09/02/19 at 13:41 Diphenhydramine HCl (Benadryl) 25 mg 1X PRN PRN IV ITCHING; Start 09/02/19 at 07:45; Stop 09/03/19 at 07:44 Diphenhydramine HCl (Benadryl) 25 mg 1X PRN PRN IV ITCHING; Start 09/02/19 at 07:45; Stop 09/03/19 at 07:44 Sodium Chloride 1,000 ml @ 400 mls/hr Q2H30M PRN IV PATENCY; Start 09/02/19 at 07:42; Stop 09/02/19 at 19:41 Info (PHARMACY MONITORING -- do not chart) 1 each PRN DAILY PRN MC SEE COMMENTS; Start 09/02/19 at 07:45; Status UNV Active Scripts Active Lisinopril 40 Mg Tablet 40 Mg PO DAILY Amlodipine Besylate 10 Mg Tablet 10 Mg PO DAILY Isosorbide Mononitrate Er (Isosorbide Mononitrate) 30 Mg Tab.er.24h 60 Mg PO DAILY Reported Lopressor (Metoprolol Tartrate) 100 Mg Tablet 12.5 Mg PO HS Metoprolol Tartrate 25 Mg Tablet 25 Mg PO DAILY08 Lisinopril 40 Mg Tablet 40 Mg PO DAILY Atorvastatin Calcium 80 Mg Tablet 40 Mg PO DAILY [Tamsulosin] 0.4 1 Tab PO DAILY Furosemide 40 Mg Tablet 1 Tab PO DAILY Flomax (Tamsulosin Hcl) 0.4 Mg Cap.er.24h 0.4 Mg PO QHS Aspirin 81 Mg Tab.chew 81 Mg PO DAILY Atorvastatin Calcium 40 Mg Tablet 1 Tab PO QHS 1/2 tab QHS Loreaglnaren Pisanopen U-100 (Insulin Glargine,Hum.rec.anlog) 100 Unit/1 Ml Insuln.pen 20 Unit SQ DAILY Vitals/I & O Vital Sign - Last 24 Hours 09/01/19 09/01/19 09/01/19 09/01/19 11:02 11:22 12:05 15:19 Temp 98.6 98.7 98.6 98.7 Pulse 72 69 Resp 17 20 17 20 B/P (MAP) 132/58 (82) 131/46 (74) Pulse Ox 94 90 O2 Delivery Nasal Cannula Nasal Cannula Nasal Cannula Nasal Cannula O2 Flow Rate 1.0 1.0 1.0 1.0 09/01/19 09/01/19 09/01/19 09/01/19 18:42 19:19 23:23 23:23 Temp 98.4 98.4 Pulse 72 72 Resp 18 16 B/P (MAP) 124/45 (71) 124/45 Pulse Ox 94 O2 Delivery Nasal Cannula Nasal Cannula Nasal Cannula O2 Flow Rate 1.0 1.0 1.0 09/01/19 09/02/19 09/02/19 23:36 03:16 07:00 Temp 97.9 98.1 97.9 98.1 Pulse 77 58 76 Resp 18 18 20 B/P (MAP) 134/49 (77) 120/50 (73) 147/56 (86) Pulse Ox 93 96 93 O2 Delivery Nasal Cannula Nasal Cannula Nasal Cannula O2 Flow Rate 1.0 1.0 2.0 Intake and Output 09/01/19 09/01/19 09/02/19 15:00 23:00 07:00 Intake Total 400 ml 300 ml 140 ml Output Total 250 ml 100 ml 0 ml Balance 150 ml 200 ml 140 ml STEVEN STACK MD Sep 02, 2019 09:17
--- NOTE | 2019-09-02 11:53 | NUR ---
SS following up with discharge planning. Pt accepted at [facility], ; fax [phone], but SS received further notification from [facility] that all admissions are on hold at this time. SS contacted pt's spouse and notified. Pt's spouse provided with a list of open facilities. Pt's spouse reported that she would discuss with pt and would contact SS by 1300 with a decision. SS will continue to follow for discharge planning.
--- NOTE | 2019-09-02 12:14 | NUR ---
SS following up with discharge planning. Pt's spouse contacted SS and requested that referrals be sent to [facility]. SS phoned and faxed referral for [facility] to Emilie [place], ;fax [phone]. SS will await acceptance decision and will proceed accordingly. Pt's RN notified.
--- NOTE | 2019-09-02 12:43 | PDOC ---
Renal-Progress Notes Subjective Notes Notes NO NEW COMPLAINTS History of Present Illness Hx of present illness STABLE Vitals Vitals Vital Signs Date Time Temp Pulse Resp B/P (MAP) Pulse Ox O2 Delivery O2 Flow Rate FiO2 09/02/19 07:00 98.1 76 20 147/56 (86) 93 Nasal Cannula 2.0 98.1 Weight Weight [ ] I.O. Intake and Output Intake and Output 09/02/19 07:00 Intake Total 840 ml Output Total 350 ml Balance 490 ml Intake Oral 840 ml Output Urine Total 350 ml Labs Labs Laboratory Tests Test 09/01/19 15:16 09/01/19 20:33 09/02/19 07:45 09/02/19 10:10 Glucose (Fingerstick) 156 mg/dL (70-99) 162 mg/dL (70-99) 102 mg/dL (70-99) Hepatitis B Surface Antigen Nonreactive (Nonreactive) Micro Micro Microbiology 08/28/19 Aerobic and Anaerobic Culture, Resulted Pending 08/28/19 Anaerobic Culture Result 1 (FLORINA), Resulted Pending 08/28/19 Aerobic Culture - Final, Resulted 08/28/19 Aerobic Culture Result 1 (FLORINA) - Final, Resulted 08/28/19 Gram Stain - Final, Resulted 08/28/19 Gram Stain Result 1 (FLORINA) - Final, Resulted 08/28/19 Gram Stain Result 2 (FLORINA) - Final, Resulted Assessment Assessment IMP ESRD ANEMIA PLEURAL EFFUSION S/P THORACENTESIS HTN R DISTAL TIB FX PLAN HD TODAY UF TO DW JONAS WHEN NEEDED WILL FOLLOW ROD PELAEZ MD Sep 02, 2019 12:42
[2019-09-02 13:04] VITALS: BP 135/51
[2019-09-02] MEDS: HEPARIN for SUB-Q USE 5,000 UNIT/ML VIAL. SQ SCH ×2 (13:28→21:35)
[2019-09-02] MEDS: INSULIN GLARGINE SYRINGE. SQ SCH (13:29)
[2019-09-02] MEDS: ISOSORBIDE MONONITRATE ER 30 MG TAB.ER.24H PO SCH (13:50)
[2019-09-02] MEDS: ASPIRIN CHEWABLE 81 MG TABLET. PO SCH (13:51)
[2019-09-02] MEDS: METOPROLOL TART IMMED RELEASE 25 MG TABLET. PO SCH ×2 (13:51→21:30)
[2019-09-02] MEDS: HYDROcodone/APAP 5/325MG 1 TAB TABLET PO PRN ×2 (13:52→21:35)
[2019-09-02] MEDS: LISINOPRIL 20 MG TABLET PO SCH (13:52)
[2019-09-02] MEDS: amLODIPine BESYLATE 10 MG TABLET PO SCH (13:53)
[2019-09-02] MEDS: FUROSEMIDE 40 MG TABLET. PO SCH (13:53)
[2019-09-02 15:00] VITALS: BP 132/54
[2019-09-02 19:21] VITALS: BP 124/44
[2019-09-02] MEDS: ATORVASTATIN CALCIUM 40 MG TABLET. PO SCH (21:30)
[2019-09-02] MEDS: TAMSULOSIN 0.4 MG CAP.ER.24H. PO SCH (21:30)
[2019-09-02 22:57] VITALS: BP 101/37
[2019-09-03 03:47] VITALS: BP 119/45
[2019-09-03 07:00] VITALS: BP 139/61
[2019-09-03] MEDS: INSULIN GLARGINE SYRINGE. SQ SCH (08:00)
--- NOTE | 2019-09-03 08:00 | PDOC ---
ORTHO PROGRESS NOTES Subjective Patient did not awaken while examining foot. Procedure closed oblique non displaced left ankle fracture Vitals Vital Signs Date Time Temp Pulse Resp B/P (MAP) Pulse Ox O2 Delivery O2 Flow Rate FiO2 09/03/19 03:47 97.5 63 17 119/45 (69) 94 Nasal Cannula 1.0 97.5 Labs Laboratory Tests Test 09/01/19 10:37 09/01/19 15:16 09/01/19 20:33 09/02/19 07:45 Glucose (Fingerstick) 98 mg/dL (70-99) 156 mg/dL (70-99) 162 mg/dL (70-99) 102 mg/dL (70-99) Test 09/02/19 10:10 09/02/19 12:58 09/02/19 16:35 09/02/19 20:51 Hepatitis B Surface Antigen Nonreactive (Nonreactive) Glucose (Fingerstick) 126 mg/dL (70-99) 172 mg/dL (70-99) 139 mg/dL (70-99) Test 09/03/19 06:50 09/03/19 06:51 Platelet Count 223 x10^3/uL (140-400) Glucose (Fingerstick) 151 mg/dL (70-99) Laboratory Tests Test 09/02/19 10:10 09/02/19 12:58 09/02/19 16:35 09/02/19 20:51 Hepatitis B Surface Antigen Nonreactive (Nonreactive) Glucose (Fingerstick) 126 mg/dL (70-99) 172 mg/dL (70-99) 139 mg/dL (70-99) Test 09/03/19 06:50 09/03/19 06:51 Platelet Count 223 x10^3/uL (140-400) Glucose (Fingerstick) 151 mg/dL (70-99) Notes sleeping Assessment and Plan Patient with splint in place distal pulses intact walker in room PT continue to mobilize OK to dc per ortho standpoint when medically stable followup in clinic in 10-14 days with repeat xrays. JULIET MORA APRN Sep 03, 2019 08:00
[2019-09-03] MEDS: amLODIPine BESYLATE 10 MG TABLET PO SCH (08:40)
[2019-09-03] MEDS: FUROSEMIDE 40 MG TABLET. PO SCH (08:41)
[2019-09-03] MEDS: ASPIRIN CHEWABLE 81 MG TABLET. PO SCH (08:41)
[2019-09-03] MEDS: LISINOPRIL 20 MG TABLET PO SCH (08:41)
[2019-09-03] MEDS: METOPROLOL TART IMMED RELEASE 25 MG TABLET. PO SCH (08:41)
[2019-09-03] MEDS: ISOSORBIDE MONONITRATE ER 30 MG TAB.ER.24H PO SCH (08:42)
[2019-09-03] MEDS: HEPARIN for SUB-Q USE 5,000 UNIT/ML VIAL. SQ SCH (08:51)
[2019-09-03] MEDS: INSULIN LISPRO 300 UNITS/3 ML VIAL. SQ SCH ×2 (08:52→12:00)
--- NOTE | 2019-09-03 09:05 | PDOC ---
PROGRESS NOTES Chief Complaint Chief Complaint Large left pleural effusion End-stage renal disease on hemodialysis on Monday Status post mechanical fall with subsequent right distal fibula fracture Type 2 diabetes History of coronary artery disease Essential hypertension Hypercholesterolemia Plan: Pulmonology recs greatly appreciated Orthopedic recommendations greatly appreciated follow up in one week at Dr Dominique's office for repeat x rays further recommendations based on clinical course PT evaluation CM working on placement since patient was unable to be discharged home with home health. DVT prophylaxis with heparin History of Present Illness History of Present Illness Mr Wiggins is a 79-year-old male w/ MPHx DM2, CAD, HTN, and new ESRD on HD MWF who presents to the emergency department with complaints of right distal fibula fracture after a mechanical fall and large left pleural effusion s/p thoracentesis on 08/27 of 2.1L. Consults: Ortho, Nephro, [place] 09/01: Seen on dialysis today. He is feeling improved. Pain reasonably controlled. Feeling ok. No CP. SOB improved. Plan for discharge to rehab today. Vitals Vitals Vital Signs Date Time Temp Pulse Resp B/P (MAP) Pulse Ox O2 Delivery O2 Flow Rate FiO2 09/03/19 08:42 79 139/61 09/03/19 07:00 98.2 14 94 Nasal Cannula 1.0 98.2 Physical Exam General: Alert, Oriented X3, Cooperative, No acute distress Heart: Regular rate Lungs: Other (decrease bs left) Abdomen: Normal bowel sounds, Soft, No tenderness Extremities: No clubbing, No cyanosis, No edema Skin: No breakdown Labs LABS Laboratory Tests Test 09/02/19 10:10 09/02/19 12:58 09/02/19 16:35 09/02/19 20:51 Hepatitis B Surface Antigen Nonreactive (Nonreactive) Glucose (Fingerstick) 126 mg/dL (70-99) 172 mg/dL (70-99) 139 mg/dL (70-99) Test 09/03/19 06:50 09/03/19 06:51 Platelet Count 223 x10^3/uL (140-400) Glucose (Fingerstick) 151 mg/dL (70-99) Assessment and Plan Assessmemt and Plan Problems Medical Problems: (1) Fracture of right ankle, lateral malleolus Status: Acute Comment Review of Relevant I have reviewed the following items kristin (where applicable) has been applied. Labs Laboratory Tests Test 09/01/19 10:37 09/01/19 15:16 09/01/19 20:33 09/02/19 07:45 Glucose (Fingerstick) 98 mg/dL (70-99) 156 mg/dL (70-99) 162 mg/dL (70-99) 102 mg/dL (70-99) Test 09/02/19 10:10 09/02/19 12:58 09/02/19 16:35 09/02/19 20:51 Hepatitis B Surface Antigen Nonreactive (Nonreactive) Glucose (Fingerstick) 126 mg/dL (70-99) 172 mg/dL (70-99) 139 mg/dL (70-99) Test 09/03/19 06:50 09/03/19 06:51 Platelet Count 223 x10^3/uL (140-400) Glucose (Fingerstick) 151 mg/dL (70-99) Laboratory Tests Test 09/02/19 10:10 09/02/19 12:58 09/02/19 16:35 09/02/19 20:51 Hepatitis B Surface Antigen Nonreactive (Nonreactive) Glucose (Fingerstick) 126 mg/dL (70-99) 172 mg/dL (70-99) 139 mg/dL (70-99) Test 09/03/19 06:50 09/03/19 06:51 Platelet Count 223 x10^3/uL (140-400) Glucose (Fingerstick) 151 mg/dL (70-99) Microbiology 08/28/19 Aerobic and Anaerobic Culture - Final, Complete 08/28/19 Anaerobic Culture Result 1 (FLORINA) - Final, Complete 08/28/19 Aerobic Culture - Final, Complete 08/28/19 Aerobic Culture Result 1 (FLORINA) - Final, Complete 08/28/19 Gram Stain - Final, Complete 08/28/19 Gram Stain Result 1 (FLORINA) - Final, Complete 08/28/19 Gram Stain Result 2 (FLORINA) - Final, Complete Medications Current Medications Acetaminophen/ Hydrocodone Bitart (Lortab 5/325) 1 tab 1X ONCE PO Last administered on 08/26/19at 21:20; Start 08/26/19 at 21:15; Stop 08/26/19 at 21:16; Status DC Fentanyl Citrate (Fentanyl 2ml Vial) 50 mcg 1X ONCE IVP Last administered on 08/26/19 23:04; Start 08/26/19 at 23:00; Stop 08/26/19 at 23:01; Status DC Ceftriaxone Sodium (Rocephin) 1 gm 1X ONCE IVP Last administered on 08/26/19 23:54; Start 08/26/19 at 23:45; Stop 08/26/19 at 23:46; Status DC Azithromycin 250 ml @ 250 mls/hr 1X ONCE IV Last administered on 08/26/19 23:54; Start 08/26/19 at 23:45; Stop 08/27/19 at 00:44; Status DC Fentanyl Citrate (Fentanyl 2ml Vial) 50 mcg PRN Q1HR PRN IV PAIN Last adm inistered on 08/27/19 21:39; Start 08/27/19 at 00:30; Stop 08/28/19 at 00:29; Status DC Amlodipine Besylate (Norvasc) 10 mg DAILY PO Last administered on 09/03/19 08:40; Start 08/27/19 at 11:00 Aspirin (Children'S Aspirin) 81 mg DAILY PO Last administered on 09/03/19 08:41; Start 08/27/19 at 11:00 Atorvastatin Calcium (Lipitor) 40 mg QHS PO Last administered on 09/02/19 21: 30; Start 08/27/19 at 21:00 Furosemide (Lasix) 40 mg DAILY PO Last administered on 09/03/19 08:41; Start 08/28/19 at 09:00 Isosorbide Mononitrate (Imdur) 60 mg DAILY PO Last administered on 09/03/19 08:42; Start 08/27/19 at 11:00 Lisinopril (Prinivil) 40 mg DAILY PO Last administered on 09/03/19 08:41; Start 08/27/19 at 11:00 Metoprolol Tartrate (Lopressor) 25 mg DAILY08 PO Last administered on 09/03/19 08:41; Start 08/27/19 at 11:00 Tamsulosin HCl (Flomax) 0.4 mg QHS PO Last administered on 09/02/19 21:30; Start 08/27/19 at 21:00 Non-Formulary Medication (Atorvastatin Calcium ) 40 mg DAILY PO ; Start 08/28/19 at 09:00; Status UNV Insulin Glargine (Lantus Syringe) 20 unit DAILY08 SQ Last administered on 09/02/19at 13:29; Start 08/27/19 at 11:00 Metoprolol Tartrate (Lopressor) 12.5 mg QHS PO Last administered on 09/02/19at 21:30; Start 08/27/19 at 21:00 Non-Formulary Medication ([Tamsulosin] ) 1 tab DAILY PO ; Start 08/28/19 at 09:00; Status UNV Insulin Human Lispro (HumaLOG) 0-7 UNITS TIDWMEALS SQ Last administered on 09/03/19at 08:52; Start 08/27/19 at 12:00 Dextrose (Dextrose 50%-Water Syringe) 12.5 gm PRN Q15MIN PRN IV SEE COMMENTS; Start 08/27/19 at 10:15 Heparin Sodium (Porcine) (Heparin Sodium) 5,000 unit Q12HR SQ Last administered on 09/03/19at 08:51; Start 08/27/19 at 21:00 Fentanyl Citrate (Fentanyl 2ml Vial) 50 mcg PRN Q4HRS PRN IVP PAIN Last administered on 08/31/19at 20:37; Start 08/28/19 at 05:30 Sodium Chloride 1,000 ml @ 1,000 mls/hr Q1H PRN IV hypotension; Start 08/28/19 at 07:52; Stop 08/28/19 at 13:51; Status DC Acetaminophen (Tylenol) 500 mg 1X PRN PRN PO MILD PAIN / TEMP; Start 08/28/19 at 08:00; Stop 08/29/19 at 07:59; Status DC Diphenhydramine HCl (Benadryl) 25 mg 1X PRN PRN IV ITCHING; Start 08/28/19 at 08:00; Stop 08/29/19 at 07:59; Status DC Diphenhydramine HCl (Benadryl) 25 mg 1X PRN PRN IV ITCHING; Start 08/28/19 at 08:00; Stop 08/29/19 at 07:59; Status DC Sodium Chloride 1,000 ml @ 400 mls/hr Q2H30M PRN IV PATENCY; Start 08/28/19 at 07:52; Stop 08/28/19 at 19:51; Status DC Info (PHARMACY MONITORING -- do not chart) 1 each PRN DAILY PRN MC SEE COMMENTS; Start 08/28/19 at 08:00 Acetaminophen/ Hydrocodone Bitart (Lortab 5/325) 1 tab PRN Q6HRS PRN PO PAIN Last administered on 09/02/19at 21:35; Start 08/28/19 at 09:45 Sodium Chloride 1,000 ml @ 1,000 mls/hr Q1H PRN IV hypotension; Start 08/30/19 at 08:03; Stop 08/30/19 at 14:02; Status DC Albumin Human 200 ml @ 200 mls/hr 1X PRN PRN IV Hypotension; Start 08/30/19 at 08:15; Stop 08/30/19 at 14:14; Status DC Sodium Chloride (Normal Saline Flush) 10 ml 1X PRN PRN IV AP catheter pack; Start 08/30/19 at 08:15; Stop 08/31/19 at 09:45; Status DC Sodium Chloride (Normal Saline Flush) 10 ml 1X PRN PRN IV FLAGGER catheter pack; Start 08/30/19 at 08:15; Stop 08/31/19 at 09:45; Status DC Info (PHARMACY MONITORING -- do not chart) 1 each PRN DAILY PRN MC SEE COMMENTS; Start 08/30/19 at 08:15; Status UNV Info (PHARMACY MONITORING -- do not chart) 1 each PRN DAILY PRN MC SEE COMMENTS; Start 08/30/19 at 08:15; Status UNV Sennosides (Senna) 17.2 mg 1X ONCE PO Last administered on 09/01/19at 11:02; Start 09/01/19 at 10:30; Stop 09/01/19 at 10:31; Status DC Polyethylene Glycol (miraLAX PACKET) 17 gm 1X ONCE PO Last administered on 09/01/19at 11:03; Start 09/01/19 at 10:30; Stop 09/01/19 at 10:31; Status DC Sodium Chloride 1,000 ml @ 1,000 mls/hr Q1H PRN IV hypotension; Start 09/02/19 at 07:42; Stop 09/02/19 at 13:41; Status DC Diphenhydramine HCl (Benadryl) 25 mg 1X PRN PRN IV ITCHING; Start 09/02/19 at 07:45; Stop 09/03/19 at 07:44; Status DC Diphenhydramine HCl (Benadryl) 25 mg 1X PRN PRN IV ITCHING; Start 09/02/19 at 07:45; Stop 09/03/19 at 07:44; Status DC Sodium Chloride 1,000 ml @ 400 mls/hr Q2H30M PRN IV PATENCY; Start 09/02/19 at 07:42; Stop 09/02/19 at 19:41; Status DC Info (PHARMACY MONITORING -- do not chart) 1 each PRN DAILY PRN MC SEE COMMENTS; Start 09/02/19 at 07:45; Status UNV Active Scripts Active Lisinopril 40 Mg Tablet 40 Mg PO DAILY Amlodipine Besylate 10 Mg Tablet 10 Mg PO DAILY Isosorbide Mononitrate Er (Isosorbide Mononitrate) 30 Mg Tab.er.24h 60 Mg PO DAILY Reported Lopressor (Metoprolol Tartrate) 100 Mg Tablet 12.5 Mg PO HS Metoprolol Tartrate 25 Mg Tablet 25 Mg PO DAILY08 Lisinopril 40 Mg Tablet 40 Mg PO DAILY Atorvastatin Calcium 80 Mg Tablet 40 Mg PO DAILY [Tamsulosin] 0.4 1 Tab PO DAILY Furosemide 40 Mg Tablet 1 Tab PO DAILY Flomax (Tamsulosin Hcl) 0.4 Mg Cap.er.24h 0.4 Mg PO QHS Aspirin 81 Mg Tab.chew 81 Mg PO DAILY Atorvastatin Calcium 40 Mg Tablet 1 Tab PO QHS 1/2 tab QHS Loreaglar Norrispen U-100 (Insulin Glargine,Hum.rec.anlog) 100 Unit/1 Ml Insuln.pen 20 Unit SQ DAILY Vitals/I & O Vital Sign - Last 24 Hours 09/02/19 09/02/19 09/02/19 09/02/19 13:04 13:50 13:51 13:52 Temp 97.4 97.4 Pulse 78 78 78 78 Resp 16 B/P (MAP) 135/51 (79) 135/51 135/51 135/51 Pulse Ox 92 O2 Delivery Nasal Cannula O2 Flow Rate 1.0 09/02/19 09/02/19 09/02/19 09/02/19 13:52 13:53 15:00 16:30 Temp 98.1 98.1 Pulse 78 82 Resp 18 B/P (MAP) 135/51 132/54 (80) Pulse Ox 92 90 90 O2 Delivery Nasal Cannula Nasal Cannula Nasal Cannula O2 Flow Rate 2.0 1.0 1.0 09/02/19 09/02/19 09/02/19 09/02/19 19:21 20:00 21:30 21:35 Temp 98.6 98.6 Pulse 64 64 Resp 20 B/P (MAP) 124/44 (70) 124/44 Pulse Ox 92 92 O2 Delivery Nasal Cannula Nasal Cannula Nasal Cannula O2 Flow Rate 1.5 2.0 1.5 09/02/19 09/02/19 09/03/19 09/03/19 22:35 22:57 03:47 07:00 Temp 97.9 97.5 98.2 97.9 97.5 98.2 Pulse 56 63 79 Resp 16 17 14 B/P (MAP) 101/37 (58) 119/45 (69) 139/61 (87) Pulse Ox 92 95 94 94 O2 Delivery Nasal Cannula Room Air Nasal Cannula Nasal Cannula O2 Flow Rate 1.5 1.0 1.0 09/03/19 09/03/19 09/03/19 09/03/19 08:40 08:41 08:41 08:42 Pulse 79 79 79 79 B/P (MAP) 139/61 139/61 139/61 139/61 Intake and Output 09/02/19 09/02/19 09/03/19 15:00 23:00 07:00 Intake Total 380 ml 500 ml 300 ml Output Total 210 ml Balance 170 ml 500 ml 300 ml STEVEN STACK MD Sep 03, 2019 09:05
[2019-09-03] MEDS ORDERED: INSU100I11 SQ (09:12)
[2019-09-03] MEDS ORDERED: HYDR-2761 PO (09:13)
--- NOTE | 2019-09-03 09:14 | SNU/HH DC ---
DISCHARGE ORDERS DISCHARGE INFORMATION: DISCHARGE DATE: Sep 03, 2019 FINAL DIAGNOSIS Problems Medical Problems: (1) Fracture of right ankle, lateral malleolus Status: Acute CONDITION ON DISCHARGE: Stable CODE STATUS: Code Status: Full LONG-TERM: SNF STAY <30 DAYS: Yes POST DISCHARGE ORDERS: ACTIVITY ORDERS: Activity as tolerated WEIGHT BEARING STATUS: No restrictions DIET AFTER DISCHARGE: Renal CHECKS AFTER DISCHARGE: CHECKS AFTER DISCHARGE: Check blood press - daily, Check blood sugar, ac/hs TREATMENT/EQUIPMENT ORDERS: ADAPTIVE EQUIPMENT NEEDED: None RESPIRATORY EQUIPMENT NEEDED: Oxygen Physical Therapy For: Evalulation/Treatment Occupational Therapy For: Evaluation/Treatment DISCHARGE MEDICATIONS: Home Meds Active Scripts Hydrocodone Bit/Acetaminophen (HYDROCODONE-APAP 5-325 ) 1 Tab Tablet, 1 TAB PO PRN Q6HRS PRN for PAIN for 6 Days, #12 TAB Prov:STEVEN STACK MD 09/03/19 Insulin Lispro (HUMALOG) 100 Unit/1 Ml Insuln.pen, 0 UNITS SQ TIDWMEALS for DM2 for 30 Days, #1 EACH Prov:STEVEN STACK MD 09/03/19 Lisinopril (LISINOPRIL) 40 Mg Tablet, 40 MG PO DAILY for htn, #30 TAB Prov:DEVORAH EUBANKS MD 02/03/19 Amlodipine Besylate (AMLODIPINE BESYLATE) 10 Mg Tablet, 10 MG PO DAILY for htn, #90 TAB Prov:DEVORAH EUBANKS MD 02/03/19 Isosorbide Mononitrate (ISOSORBIDE MONONITRATE ER) 30 Mg Tab.er.24h, 60 MG PO DAILY for htn, #90 TAB.SR Prov:DEVORAH EUBANKS MD 02/03/19 Reported Medications Metoprolol Tartrate (Lopressor) 100 Mg Tablet, 12.5 MG PO HS for htn, TAB 08/27/19 Metoprolol Tartrate (METOPROLOL TARTRATE) 25 Mg Tablet, 25 MG PO DAILY08 for htn 08/27/19 Atorvastatin Calcium (Atorvastatin Calcium) 80 Mg Tablet, 40 MG PO DAILY for hyperlipidemia 08/27/19 [Tamsulosin] 0.4 No Conflict Check, 1 TAB PO DAILY 08/27/19 Furosemide (FUROSEMIDE) 40 Mg Tablet, 1 TAB PO DAILY for chf, edema, #30 TAB 5 Refills 06/28/19 Tamsulosin Hcl (FLOMAX) 0.4 Mg Cap.er.24h, 0.4 MG PO QHS for , TAB 01/30/19 Aspirin (ASPIRIN) 81 Mg Tab.chew, 81 MG PO DAILY for , TAB.CHEW 01/30/19 Atorvastatin Calcium (ATORVASTATIN CALCIUM) 40 Mg Tablet, 1 TAB PO QHS for elevated lipids, #30 TAB 5 Refills 1/2 tab QHS 10/19/18 Insulin Glargine,Hum.rec.anlog (Basaglar Kwikpen U-100) 100 Unit/1 Ml Insuln.pen, 20 UNIT SQ DAILY for blood sugar, EACH 10/19/18 Discontinued Reported Medications Lisinopril (Lisinopril) 40 Mg Tablet, 40 MG PO DAILY for htn 08/27/19 Discontinued Scripts Ciprofloxacin Hcl (CIPRO) 500 Mg Tablet, 1 TAB PO BID for GNR uti for 10 Days, #20 TAB 0 Refills Prov:DEVORAH EUBANKS MD 07/03/19 STEVEN STACK MD Sep 03, 2019 09:14
--- NOTE | 2019-09-03 09:30 | NUR ---
SS following up with discharge planning. Pt accepted at [facility], ; fax [phone]. Discharge orders received. SS phoned and faxed discharge orders to [facility]. Pt will discharge today and go to [facility] at 1100. [facility] to provide transportation. Pt, pt's RN, and pt's spouse notified.
--- NOTE | 2019-09-03 10:40 | NUR ---
LANTUS INSULIN NOT GIVEN THIS AM, DUE TO MED NOT AVAILABLE, WILL INFORM RECEIVING FACILITY TO ADMINISTER.
[2019-09-03 11:00] VITALS: BP 90/36
--- NOTE | 2019-09-03 11:30 | NUR ---
REPORT CALLED TO RUDOLPH AT [facility], QUESTIONS AND CONCERNS ANSWERED, DISCHARGE PAPERWORK PLACED IN PACKET AND SALINE LOCK REMOVED FROM PATIENTS' RIGHT FOREARM PER GINNING OPERATOR. PICTURE TAKEN OF BREAKDOWN ON PATIENTS COCCYX AND PLACED IN CHART.
--- NOTE | 2019-09-03 11:50 | PDOC3 ---
Discharge Summary Visit Information Date of Admission: Aug 27, 2019 Date of Discharge: Sep 03, 2019 Admitting Diagnosis: Right ankle fracture, pleural effusion Final Diagnosis Problems Medical Problems: (1) Fracture of right ankle, lateral malleolus Status: Acute Brief Hospital Course Allergies Allergies Coded Allergies Type Severity Reaction Last Updated Verified No Known Medication Allergies Allergy Unknown 06/29/19 Yes Vital Signs Vital Signs Date Time Temp Pulse Resp B/P (MAP) Pulse Ox O2 Delivery O2 Flow Rate FiO2 09/03/19 11:00 98.2 60 14 90/36 (54) 98 Nasal Cannula 1.0 98.2 Lab Results Laboratory Tests Test 09/01/19 15:16 09/01/19 20:33 09/02/19 07:45 09/02/19 10:10 Glucose (Fingerstick) 156 mg/dL (70-99) 162 mg/dL (70-99) 102 mg/dL (70-99) Hepatitis B Surface Antigen Nonreactive (Nonreactive) Test 09/02/19 12:58 09/02/19 16:35 09/02/19 20:51 09/03/19 06:50 Glucose (Fingerstick) 126 mg/dL (70-99) 172 mg/dL (70-99) 139 mg/dL (70-99) Platelet Count 223 x10^3/uL (140-400) Test 09/03/19 06:51 09/03/19 10:57 Glucose (Fingerstick) 151 mg/dL (70-99) 115 mg/dL (70-99) Laboratory Tests Test 09/02/19 12:58 09/02/19 16:35 09/02/19 20:51 09/03/19 06:50 Glucose (Fingerstick) 126 mg/dL (70-99) 172 mg/dL (70-99) 139 mg/dL (70-99) Platelet Count 223 x10^3/uL (140-400) Test 09/03/19 06:51 09/03/19 10:57 Glucose (Fingerstick) 151 mg/dL (70-99) 115 mg/dL (70-99) Brief Hospital Course Mr Wiggins is a 79-year-old male w/ MPHx DM2, CAD, HTN, and new ESRD on HD MWF who presents to the emergency department with complaints of right distal fibula fracture after a mechanical fall and large left pleural effusion s/p thoracentesis on 08/[address] Dominique saw the patient and recommended nonoperative management with support brace. The patient is able to do partial weightbearing as tolerated. The patient also was noted to have a significant pleural effusion on the left side. The patient underwent a thoracentesis throughout her his hospital stay. At the time of this note results are not finalized from the culture standpoint of view but no organisms were isolated. There was no malignant cells and focally reactive mesothelial cells identified within a background of lymphocytes few neutrophils and red blood cells on his pathology. The patient received dialysis on Monday and Monday as his usual schedule and he will be going home with home health. The patient is quite upset this morning and does not seem to comprehend everything but when I asked nursing staff of alteration in mentation they relate to me that he is very boisterous and somewhat verbally abusive to them on a regular basis. He would not cooperate fully with the neurological assessment but he was able to move all his extremities his cranial nerves were intact and he would not answer my questions regarding orientation but is he seems to be quite oriented at the present time. He asked questions like what am I supposed to do with my life to which I tried to explain to him that at the present time he needs to continue with his rehabilitation through home health and that Dr. Dominique will follow him up in the outpatient setting for his ankle fracture. Case management is helping us also arrange physical therapy at home and visiting nurse so he can have the best outcome possible. Greater than 35 minutes were spent in the discharge process with the patient in counseling coordination of care and arrangements for a safe discharge Consults: Ortho, Nephro, [place] 09/01: Seen on dialysis today. He is feeling improved. Pain reasonably controlled. Feeling ok. No CP. SOB improved. Plan for discharge to rehab today. Problem list: Large left pleural effusion End-stage renal disease on hemodialysis on Monday Status post mechanical fall with subsequent right distal fibula fracture Type 2 diabetes History of coronary artery disease Essential hypertension Hypercholesterolemia Plan: Pulmonology recs greatly appreciated Orthopedic recommendations greatly appreciated follow up in one week at Dr Dominique's office for repeat x rays further recommendations based on clinical course PT evaluation CM working on placement since patient was unable to be discharged home with home health. DVT prophylaxis with heparin Greater than 30 minutes spent on discharge Discharge Information Condition at Discharge: Improved Follow Up: Weeks (1) Disposition/Orders: D/C to Another Facility Scheduled Amlodipine Besylate (Amlodipine Besylate) 10 Mg Tablet, 10 MG PO DAILY for htn, #90 Prescribed by: DEVORAH EUBANKS on 02/03/19 1139 Last Action: Continued on 08/27/19 1011 by CORRIE STONE MD Aspirin (Aspirin) 81 Mg Tab.chew, 81 MG PO DAILY for , (Reported) Entered as Reported by: Mark Price on 01/30/19 1023 Last Action: Continued on 08/27/19 1011 by CORRIE STONE MD Atorvastatin Calcium (Atorvastatin Calcium) 40 Mg Tablet, 1 TAB PO QHS for elevated lipids, #30 Ref 5 (Reported) 1/2 tab QHS Entered as Reported by: ELVA COLEMAN on 10/19/18 1154 Last Action: Continued on 08/27/19 1011 by CORRIE STONE MD Atorvastatin Calcium (Atorvastatin Calcium) 80 Mg Tablet, 40 MG PO DAILY for hyperlipidemia, (Reported) Entered as Reported by: Elva Bermudez on 08/27/19 0439 Last Action: Converted on 08/27/19 1011 by CORRIE STONE MD Furosemide (Furosemide) 40 Mg Tablet, 1 TAB PO DAILY for chf, edema, #30 Ref 5 (Reported) Entered as Reported by: LORNA SMITH on 06/28/19 0959 Last Action: Continued on 08/27/19 1011 by CORRIE STONE MD Insulin Glargine,Hum.rec.anlog (Basaglar Kwikpen U-100) 100 Unit/1 Ml Insuln.pen, 20 UNIT SQ DAILY for blood sugar, (Reported) Entered as Reported by: ELVA COLEMAN on 10/19/18 1154 Last Action: Converted on 08/27/19 1011 by CORRIE STONE MD Insulin Lispro (Humalog) 100 Unit/1 Ml Insuln.pen, 0 UNITS SQ TIDWMEALS for DM2 for 30 Days, #1 Prescribed by: STEVEN STACK MD on 09/03/19 0912 Isosorbide Mononitrate (Isosorbide Mononitrate Er) 30 Mg Tab.er.24h, 60 MG PO DAILY for htn, #90 Prescribed by: DEVORAH EUBANKS on 02/03/19 1139 Last Action: Continued on 08/27/191010 by CORRIE STONE MD Lisinopril (Lisinopril) 40 Mg Tablet, 40 MG PO DAILY for htn, #30 Prescribed by: DEVORAH EUBANKS on 02/03/19 1139 Last Action: Continued on 08/27/19 101 by CORRIE STONE MD Metoprolol Tartrate (Metoprolol Tartrate) 25 Mg Tablet, 25 MG PO DAILY08 for htn, (Reported) Entered as Reported by: Elva Bermudez on 08/27/19 0439 Last Action: Continued on 08/27/19 101 by CORRIE STONE MD Metoprolol Tartrate (Lopressor) 100 Mg Tablet, 12.5 MG PO HS for htn, (Reported) Entered as Reported by: Elva Bermudez on 08/27/19 0439 Last Action: Converted on 08/27/191010 by CORRIE STONE MD Tamsulosin Hcl (Flomax) 0.4 Mg Cap.er.24h, 0.4 MG PO QHS for , (Reported) Entered as Reported by: Mark Price on 01/30/19 1023 Last Action: Continued on 08/27/191010 by CORRIE STONE MD [Tamsulosin] 0.4 , 1 TAB PO DAILY, (Reported) Entered as Reported by: Elva Bermudez on 08/27/19 0439 Last Action: Converted on 08/27/191010 by CORRIE STONE MD Scheduled PRN Hydrocodone Bit/Acetaminophen (Hydrocodone-Apap 5-325 ) 1 Tab Tablet, 1 TAB PO PRN Q6HRS PRN for PAIN for 6 Days, #12 Prescribed by: STEVEN STACK MD on 09/03/19 0913 Discontinued Medications Ciprofloxacin Hcl (Cipro) 500 Mg Tablet, 1 TAB PO BID for GNR uti for 10 Days, #20 Ref 0 Prescribed by: DEVORAH EUBANKS on 07/03/19 0859 Last Action: HELD on 08/27/19 1010 by CORRIE STONE MD Lisinopril (Lisinopril) 40 Mg Tablet, 40 MG PO DAILY for htn, (Reported) Entered as Reported by: Elva Bermudez on 08/27/19 0439 Last Action: HELD on 08/27/19 1010 by MD SEDA ENAMORADO CHRISTOPHER S MD Sep 03, 2019 11:50
--- NOTE | 2019-09-03 12:00 | NUR ---
PATIENT LEAVES THE UNIT PER W/C AND ACCOMPANIED BY BOTTOMING ROOM INSPECTOR ON THE UNIT, EMOTIONAL SUPPORT GIVEN, FOLLOW UP APPOINTMENTS ENCOURAGED.
--- NOTE | 2019-09-03 12:33 | PDOC ---
Renal-Progress Notes Subjective Notes Notes NONE History of Present Illness Hx of present illness STABLE Vitals Vitals Vital Signs Date Time Temp Pulse Resp B/P (MAP) Pulse Ox O2 Delivery O2 Flow Rate FiO2 09/03/19 11:00 98.2 60 14 90/36 (54) 98 Nasal Cannula 1.0 98.2 Weight Weight [ ] I.O. Intake and Output Intake and Output 09/03/19 07:00 Intake Total 1180 ml Output Total 210 ml Balance 970 ml Intake Oral 1180 ml Output Urine Total 210 ml # Voids 3 # Bowel Movements 1 Labs Labs Laboratory Tests Test 09/02/19 12:58 09/02/19 16:35 09/02/19 20:51 09/03/19 06:50 Glucose (Fingerstick) 126 mg/dL (70-99) 172 mg/dL (70-99) 139 mg/dL (70-99) Platelet Count 223 x10^3/uL (140-400) Test 09/03/19 06:51 09/03/19 10:57 Glucose (Fingerstick) 151 mg/dL (70-99) 115 mg/dL (70-99) Micro Micro Microbiology 08/28/19 Aerobic and Anaerobic Culture - Final, Complete 08/28/19 Anaerobic Culture Result 1 (FLORINA) - Final, Complete 08/28/19 Aerobic Culture - Final, Complete 08/28/19 Aerobic Culture Result 1 (FLORINA) - Final, Complete 08/28/19 Gram Stain - Final, Complete 08/28/19 Gram Stain Result 1 (FLORINA) - Final, Complete 08/28/19 Gram Stain Result 2 (FLORINA) - Final, Complete Assessment Assessment IMP ESRD ANEMIA PLEURAL EFFUSION S/P THORACENTESIS HTN R DISTAL TIB FX PLAN HD TOMORROW OP REPORT CALLED TO UNIT WILL FOLLOW ROD PELAEZ MD Sep 03, 2019 12:33
--- NOTE | 2019-09-03 14:40 | NUR ---
Wound Care Pt discharged prior to arrival of WC team.
== END 2019-09-03 12:16 | DRG 562 ==
LOC: ER 20:22 → ED HOLD 23:17 → 6 SOUTH 08-27 03:05
PROVIDERS: ADMIT Internal Medicine; ATTEND Internal Medicine
PROC: 2W3LX1Z Immobilization of Right Lower Extremity using Splint (ICD-10-PCS; 2019-08-26)
PROC: 5A1D70Z Performance of Urinary Filtration, Intermittent, Less than 6 Hours Per Day (ICD-10-PCS; 2019-08-28)
PROC: 0W9B3ZZ Drainage of Left Pleural Cavity, Percutaneous Approach (ICD-10-PCS; 2019-08-28)
PROC: 5A1D70Z Performance of Urinary Filtration, Intermittent, Less than 6 Hours Per Day (ICD-10-PCS; 2019-08-30)
PROC: 5A1D70Z Performance of Urinary Filtration, Intermittent, Less than 6 Hours Per Day (ICD-10-PCS; principal; 2019-09-02)
DX: S82.309A Unspecified fracture of lower end of unspecified tibia, initial encounter for closed fracture (principal); J96.01 Acute respiratory failure with hypoxia; N18.6 End stage renal disease; J90 Pleural effusion, not elsewhere classified; J98.11 Atelectasis; I12.0 Hypertensive chronic kidney disease with stage 5 chronic kidney disease or end stage renal disease; S82.61XA Displaced fracture of lateral malleolus of right fibula, initial encounter for closed fracture; S82.892A Other fracture of left lower leg, initial encounter for closed fracture; I48.91 Unspecified atrial fibrillation; D64.9 Anemia, unspecified; E11.22 Type 2 diabetes mellitus with diabetic chronic kidney disease; E78.00 Pure hypercholesterolemia, unspecified; E78.5 Hyperlipidemia, unspecified; I25.10 Atherosclerotic heart disease of native coronary artery without angina pectoris; I25.2 Old myocardial infarction; I51.7 Cardiomegaly; M19.011 Primary osteoarthritis, right shoulder; M19.012 Primary osteoarthritis, left shoulder; M77.30 Calcaneal spur, unspecified foot; K57.90 Diverticulosis of intestine, part unspecified, without perforation or abscess without bleeding; E21.3 Hyperparathyroidism, unspecified; W01.0XXA Fall on same level from slipping, tripping and stumbling without subsequent striking against object, initial encounter; X50.1XXA Overexertion from prolonged static or awkward postures, initial encounter; Z82.49 Family history of ischemic heart disease and other diseases of the circulatory system; Z87.891 Personal history of nicotine dependence; Z95.5 Presence of coronary angioplasty implant and graft; Z99.2 Dependence on renal dialysis; Z79.4 Long term (current) use of insulin
CPT/HCPCS: 32555; 36415; 71045; 71250; 73590; 73610; 73630; 80053; 82553; 82962; 83615; 83880; 84157; 84484; 85025; 85049; 85610; 85730; 87071; 87075; 87340; 88112; 88305; 93005; 96365; 96375; J0456; J0696; J1644; J1815; J3010; 97110; 97116; 97535; 99285-25; G0378

== ENCOUNTER 2020-02-12 12:04 | Inpatient (IN) | payer MEDICARE, BC ==
[~2020-02-12] VITALS: Ht 172.7 cm; Wt 88.3 kg
[~2020-02-12 12:04] MED LIST changes: +ACET325T9 PO; +ALBU2.5V8 NEB; +ATOR80TA72 PO; +DOCU-153 PO; +FOLI0.8T3 PO; +HYDR-2761 PO; +INSU100I11 SQ; +LISI40TA2 PO; +METO-313 PO; +TAMSULOSIN PO
[2020-02-12 12:47] LABS: BASO # 0.1 x10^3/uL (0.0-0.2); BASO % 1 % (0-3); EOS # 0.2 x10^3/uL (0.0-0.7); EOS % 4 % (0-3); HEMATOCRIT 31.4 % (39.0-53.0); HEMOGLOBIN 10.6 g/dL (13.0-17.5); LYMPH # 1.3 x10^3/uL (1.0-4.8); LYMPH % 20 % (24-48); MEAN CORPUSCULAR HEMOGLOBIN 31 pg (25-35); MEAN CORPUSCULAR HGB CONC 34 g/dL (31-37); MEAN CORPUSCULAR VOLUME 93 fL (79-100); MONO # 0.6 x10^3/uL (0.0-1.1); MONO % 9 % (0-9); NEUT % 66 % (31-73); PLATELET COUNT 326 x10^3/uL (140-400); RED BLOOD COUNT 3.39 x10^6/uL (4.30-5.70); RED CELL DISTRIBUTION WIDTH 15.6 % (11.5-14.5); WHITE BLOOD COUNT 6.2 x10^3/uL (4.0-11.0)
[2020-02-12 12:58] LABS: CALCIUM 8.3 mg/dL (8.5-10.1); CREATININE 4.1 mg/dL (0.7-1.3); GFR 14.1
[2020-02-12 13:09] LABS: CREATINE KINASE 39 U/L (39-308)
[2020-02-12 13:10] LABS: ALBUMIN 2.8 g/dL (3.4-5.0); ALBUMIN/GLOBULIN RATIO 0.9 (1.0-1.7); TOTAL BILIRUBIN 0.3 mg/dL (0.2-1.0)
--- NOTE | 2020-02-12 13:26 | RAD ---
EXAM: PORTABLE CHEST 1V INDICATION: Reason: dyspnea, cough / Spl. Instructions: / History: . TECHNIQUE: Single view COMPARISON: 10/07/2019 chest x-ray FINDINGS: Right jugular approach dialysis catheter remains present with the tip near the confluence of the innominate veins. Heart is obscured by bilateral pleural effusions The great vessels appear unremarkable. Bilateral hieu also obscured by pleural effusions. Lungs show hypoventilatory changes with atelectasis most conspicuous in the left lower lobe Bilateral pleural effusions have increased in the interval, already large on the left foot is more conspicuous now. There are no significant osseous abnormalities. IMPRESSION: Worsening bilateral pleural effusions with a dialysis catheter unchanged in position. Electronically signed by: Olayinka Nicholas MD (02/12/2020 1:23 PM) [id number]
--- NOTE | 2020-02-12 13:27 | EKG ---
[facility] [address] [place] [address] Test Date: 2020-02-12 Test Time: 12:12:12 Pat Name: LEANA DODD Department: Room: Gender: M Director Of Public Safety: : 1940 Requested By: MONTRELL ORELLANA Order Number: [id number] Reading MD: Measurements Intervals [place] Rate: 77 P: 45 SC: 154 QRS: 38 QRSD: 122 T: 202 QT: 422 QTc: 480 Interpretive Statements SINUS RHYTHM LOW LIMB LEAD VOLTAGE INCOMPLETE LEFT BUNDLE BRANCH BLOCK T ABNORMALITY IN ANTEROLATERAL LEADS INFEROLATERAL LEADS ABNORMAL ECG RI6.02 No previous ECG available for comparison
--- NOTE | 2020-02-12 15:23 | PHYS DOC ---
Past Medical History Past Medical History: CAD, Diabetes-Type II, High Cholesterol, Hypertension, [place], Renal Failure Additional Past Medical Histor: R ankle fracture on August 2019 Past Surgical History: Cholecystectomy, Tonsillectomy Additional Past Surgical Histo: CARDIAC STENT, EYE SX, BONE SPUR L SHOULDER,perma cath Smoking Status: Never Smoker Alcohol Use: None Drug Use: None General Adult EDM: Chief Complaint: SHORTNESS OF BREATH HPI: HPI: Patient is a 79 year old [f__sex] who presents with [] Review of Systems: Review of Systems: Constitutional: Denies fever or chills. [] Eyes: Denies change in visual acuity. [] HENT: Denies nasal congestion or sore throat. [] Respiratory: Denies cough or shortness of breath. [] Cardiovascular: Denies chest pain or edema. [] GI: Denies abdominal pain, nausea, vomiting, bloody stools or diarrhea. [] : Denies dysuria. [] Musculoskeletal: Denies back pain or joint pain. [] Integument: Denies rash. [] Neurologic: Denies headache, focal weakness or sensory changes. [] Endocrine: Denies polyuria or polydipsia. [] Lymphatic: Denies swollen glands. [] Psychiatric: Denies depression or anxiety. [] Heart Score: Risk Factors: Risk Factors: DM, Current or recent (<one month) smoker, HTN, HLP, family history of CAD, obesity. Risk Scores: Score 0 - 3: 2.5% MACE over next 6 weeks - Discharge Home Score 4 - 6: 20.3% MACE over next 6 weeks - Admit for Clinical Observation Score 7 - 10: 72.7% MACE over next 6 weeks - Early Invasive Strategies Allergies: Allergies: Allergies Coded Allergies Type Severity Reaction Last Updated Verified No Known Medication Allergies Allergy Unknown 06/29/19 Yes Physical Exam: PE: Constitutional: Well developed, well nourished, no acute distress, non-toxic appearance. [] HENT: Normocephalic, atraumatic, bilateral external ears normal, oropharynx moist, no oral exudates, nose normal. [] Eyes: PERRLA, EOMI, conjunctiva normal, no discharge. [] Neck: Normal range of motion, no tenderness, supple, no stridor. [] Cardiovascular:Heart rate regular rhythm, no murmur [] Lungs & Thorax: Bilateral breath sounds clear to auscultation [] Abdomen: Bowel sounds normal, soft, no tenderness, no masses, no pulsatile masses. [] Skin: Warm, dry, no erythema, no rash. [] Back: No tenderness, no CVA tenderness. [] Extremities: No tenderness, no cyanosis, no clubbing, ROM intact, no edema. [] Neurologic: Alert and oriented X 3, normal motor function, normal sensory function, no focal deficits noted. [] Psychologic: Affect normal, judgement normal, mood normal. [] Current Patient Data: Labs: Laboratory Tests Test 02/12/20 12:20 White Blood Count 6.2 x10^3/uL (4.0-11.0) Red Blood Count 3.39 x10^6/uL (4.30-5.70) L Hemoglobin 10.6 g/dL (13.0-17.5) L Hematocrit 31.4 % (39.0-53.0) L Mean Corpuscular Volume 93 fL (79-100) Mean Corpuscular Hemoglobin 31 pg (25-35) Mean Corpuscular Hemoglobin Concent 34 g/dL (31-37) Red Cell Distribution Width 15.6 % (11.5-14.5) H Platelet Count 326 x10^3/uL (140-400) Neutrophils (%) (Auto) 66 % (31-73) Lymphocytes (%) (Auto) 20 % (24-48) L Monocytes (%) (Auto) 9 % (0-9) Eosinophils (%) (Auto) 4 % (0-3) H Basophils (%) (Auto) 1 % (0-3) Neutrophils # (Auto) 4.0 x10^3/uL (1.8-7.7) Lymphocytes # (Auto) 1.3 x10^3/uL (1.0-4.8) Monocytes # (Auto) 0.6 x10^3/uL (0.0-1.1) Eosinophils # (Auto) 0.2 x10^3/uL (0.0-0.7) Basophils # (Auto) 0.1 x10^3/uL (0.0-0.2) Sodium Level 136 mmol/L (136-145) Potassium Level 4.0 mmol/L (3.5-5.1) Chloride Level 100 mmol/L (98-107) Carbon Dioxide Level 31 mmol/L (21-32) Anion Gap 5 (6-14) L Blood Urea Nitrogen 36 mg/dL (8-26) H Creatinine 4.1 mg/dL (0.7-1.3) H Estimated GFR (Cockcroft-Gault) 14.1 BUN/Creatinine Ratio 9 (6-20) Glucose Level 122 mg/dL (70-99) H Lactic Acid Level 0.5 mmol/L (0.4-2.0) Calcium Level 8.3 mg/dL (8.5-10.1) L Magnesium Level 2.0 mg/dL (1.8-2.4) Total Bilirubin 0.3 mg/dL (0.2-1.0) Aspartate Amino Transferase (AST) 12 U/L (15-37) L Alanine Aminotransferase (ALT) 11 U/L (16-63) L Alkaline Phosphatase 59 U/L (46-116) Creatine Kinase 39 U/L (39-308) Creatine Kinase MB (Mass) 0.9 ng/mL (0.0-3.6) Creatine Kinase MB Relative Index % (0-4) Troponin I Quantitative < 0.017 ng/mL (0.000-0.055) QY-Rjk-X-Type Natriuretic Peptide > 07880 pg/mL (0-449) H Total Protein 6.0 g/dL (6.4-8.2) L Albumin 2.8 g/dL (3.4-5.0) L Albumin/Globulin Ratio 0.9 (1.0-1.7) L Lipase 49 U/L (73-393) L Laboratory Tests 02/12/20 12:20 Laboratory Tests 02/12/20 12:20 Vital Signs: Vital Signs Date Time Temp Pulse Resp B/P (MAP) Pulse Ox O2 Delivery O2 Flow Rate FiO2 02/12/20 12:09 98.2 75 22 138/76 (96) 96 Nasal Cannula 3.0 98.2 EKG: EKG: @1212 NSR at 77bpm, LBBB, nonspecific t wave inversion V5-V6, compared to prior EKG per [employer] review from 10/13/2019 Radiology/Procedures: Radiology/Procedures: PROCEDURE: PORTABLE CHEST 1V EXAM: PORTABLE CHEST 1V INDICATION: Reason: dyspnea, cough / Spl. Instructions: / History: . TECHNIQUE: Single view COMPARISON: 10/07/2019 chest x-ray FINDINGS: Right jugular approach dialysis catheter remains present with the tip near the confluence of the innominate veins. Heart is obscured by bilateral pleural effusions The great vessels appear unremarkable. Bilateral hieu also obscured by pleural effusions. Lungs show hypoventilatory changes with atelectasis most conspicuous in the left lower lobe Bilateral pleural effusions have increased in the interval, already large on the left foot is more conspicuous now. There are no significant osseous abnormalities. IMPRESSION: Worsening bilateral pleural effusions with a dialysis catheter unchanged in position. Electronically signed by: Olayinka Nicholas MD (02/12/2020 1:23 PM) [id number] Course & Med Decision Making: Course & Med Decision Making Pertinent Labs and Imaging studies reviewed. (See chart for details) [] Dragon Disclaimer: Dragon Disclaimer: This electronic medical record was generated, in whole or in part, using a voice recognition dictation system. Departure Departure Impression: Primary Impression: Dyspnea Qualified Codes: R06.00 - Dyspnea, unspecified Additional Impressions: Hypoxia Suspected 2019 novel coronavirus infection ESRD (end stage renal disease) on dialysis Pleural effusion Disposition: ADMITTED INPATIENT Admitting Physician: MARYAM Rodriguez) Condition: GUARDED Referrals: JONE BETTENCOURT MD (PCP) Justicifation of Admission Dx: Justifications for Admission: Justification of Admission Dx: Yes Comments: Dyspnea, Pleural effusions, Hypoxia, ESRD on HD M/W/F COVID-19 Assessment: COVID-19 Patient Risks: Age 65 or older: Yes Sign of co-morbidity: Yes Exp to person + for COVID: No Exp to PUI: No Travel from affected area: No Lower respiratory symptoms: Yes Fever: No PPE Use: Full PPE with N95 mask or PAPR: Yes Critical Care Time Critical care time was 30 minutes which includes time at bedside, spent in discussion of patient's care with specialists and/or family members, with inter pretation of laboratory and/or radiological studies and is exclusive of procedures. MONTRELL ORELLANA DO Feb 12, 2020 15:23
[2020-02-12] MEDS ORDERED: DEXTROSE 50% 25 GM / 50ML DISP.SYRIN. IV PRN (15:30)
[2020-02-12] MEDS ORDERED: ONDANSETRON PF 4 MG/2 ML VIAL. IV PRN (15:30)
[2020-02-12] MEDS: INSULIN LISPRO 300 UNITS/3 ML VIAL. SQ SCH (17:00)
[2020-02-12 19:10] VITALS: BP 176/76
[2020-02-12] MEDS ORDERED: CALC200T3 PO (22:36)
[2020-02-12] MEDS ORDERED: VITA25006 PO (22:36)
--- NOTE | 2020-02-12 22:47 | PDOC1 ---
History and Physical Date of Admission Date of Admission DATE: 02/12/20 TIME: 22:16 Identification/Chief Complaint Chief Complaint Shortness of breath Source Source: Chart review, Patient History of Present Illness History of Present Illness Patient is a 79 yo male with PMHx ESRD on HD M/W/, who presents with worsening shortness of breath for the past 2 weeks. He reports associated cough and weakness. Patient did not receive HD today, as he came to the ED instead for concerns of his symptoms. Patient was unfortunately very somnolent at the time of my evaluation, and further history could not be obtained. Past Medical History Cardiovascular: CAD, HTN, NE, Hyperlipidemia GI: Diverticulosis Heme/Onc: Anemia NOS Renal/: Chronic renal insuff, Benign prostatic enlarg. Endocrine: Diabetes, Hyperparathyroidism Past Surgical History Past Surgical History: Arthroscopy, Cholecystectomy, Tonsillectomy, Other Family History Family History: Hypertension Social History Smoke: No ALCOHOL: none Drugs: None Current Problem List Problem List Problems Medical Problems: (1) Dyspnea Status: Acute (2) ESRD (end stage renal disease) on dialysis Status: Acute (3) Pleural effusion Status: Acute (4) Suspected 2019 novel coronavirus infection Status: Acute Current Medications Current Medications Current Medications Ondansetron HCl (Zofran) 4 mg PRN Q8HRS PRN IV NAUSEA/VOMITING; Start 02/12/20 at 15:30; Stop 02/13/20 at 15:29 Insulin Human Lispro (HumaLOG) 0-5 UNITS TIDWMEALS SQ ; Start 02/12/20 at 17:00 Dextrose (Dextrose 50%-Water Syringe) 12.5 gm PRN Q15MIN PRN IV SEE COMMENTS; Start 02/12/20 at 15:30 Active Scripts Active Dok (Docusate Sodium) 100 Mg Capsule 100 Mg PO PRN BID PRN 30 Days Tylenol (Acetaminophen) 325 Mg Tablet 650 Mg PO PRN Q4HRS PRN 30 Days Proair Hfa (Albuterol Sulfate) 8.5 Gm Hfa.aer.ad 2.5 Mg NEB PRN Q4HRS PRN 14 Days Lisinopril 40 Mg Tablet 40 Mg PO DAILY Amlodipine Besylate 10 Mg Tablet 10 Mg PO DAILY Isosorbide Mononitrate Er (Isosorbide Mononitrate) 30 Mg Tab.er.24h 60 Mg PO DAILY Reported Nephro-Mark Tablet (Folic Acid/Vitamin B Comp W-C) 0.8 Mg Tablet 1 Tab PO DAILY Furosemide 40 Mg Tablet 1 Tab PO DAILY Flomax (Tamsulosin Hcl) 0.4 Mg Cap.er.24h 0.4 Mg PO QHS Aspirin 81 Mg Tab.chew 81 Mg PO DAILY Atorvastatin Calcium 40 Mg Tablet 1 Tab PO QHS 1/2 tab QHS Basaglar Kwikpen U-100 (Insulin Glargine,Hum.rec.anlog) 100 Unit/1 Ml Insuln.pen 20 Unit SQ DAILY Allergies Allergies: Coded Allergies: No Known Medication Allergies (Verified Allergy, Unknown, 06/29/19) ROS General: No: Chills, Night Sweats PSYCHOLOGICAL ROS: No: Anxiety, Depression Eyes: No Blurry vision, No Double vision, No Loss of vision HEENT: No: Heacaches, Visual Changes, Nasal congestion, Sore Throat Hematological and Lymphatic: No: Bleeding Problems, Pallor ENDOCRINE: No: Polydipsia/polyuria Respiratory: YES: Cough, Shortness of breath Cardiovascular: No Chest Pain Gastrointestinal: No Nausea, No Vomiting, No Abdominal Pain Genitourinary: No Dysuria, No Flank Pain Musculoskeletal: No Joint Pain, No Joint Swelling Neurological: Yes Weakness; No Dizziness, No Headaches, No Numbness/Tingling Skin: No Dry Skin, No Hair Changes, No Rash Physical Exam General: Cooperative, No acute distress HEENT: PERRLA Lungs: Other (Bibasilar rales) Heart: RRR, no murmurs Cardiovascular: S1, S2 Abdomen: Normal bowel sounds, Soft, No tenderness Extremities: No cyanosis, Other (+1 bilateral edema) Skin: No rashes, No breakdown Neuro: Normal speech, Normal tone Psych/Mental Status: Mood NL Vitals Vitals Vital Signs Date Time Temp Pulse Resp B/P (MAP) Pulse Ox O2 Delivery O2 Flow Rate FiO2 02/12/20 19:10 96.0 84 24 176/76 (109) 91 Nasal Cannula 5.0 96.0 Labs Labs Laboratory Tests Test 02/12/20 12:20 02/12/20 16:48 02/12/20 16:50 02/12/20 21:38 White Blood Count 6.2 x10^3/uL (4.0-11.0) Red Blood Count 3.39 x10^6/uL (4.30-5.70) Hemoglobin 10.6 g/dL (13.0-17.5) Hematocrit 31.4 % (39.0-53.0) Mean Corpuscular Volume 93 fL (79-100) Mean Corpuscular Hemoglobin 31 pg (25-35) Mean Corpuscular Hemoglobin Concent 34 g/dL (31-37) Red Cell Distribution Width 15.6 % (11.5-14.5) Platelet Count 326 x10^3/uL (140-400) Neutrophils (%) (Auto) 66 % (31-73) Lymphocytes (%) (Auto) 20 % (24-48) Monocytes (%) (Auto) 9 % (0-9) Eosinophils (%) (Auto) 4 % (0-3) Basophils (%) (Auto) 1 % (0-3) Neutrophils # (Auto) 4.0 x10^3/uL (1.8-7.7) Lymphocytes # (Auto) 1.3 x10^3/uL (1.0-4.8) Monocytes # (Auto) 0.6 x10^3/uL (0.0-1.1) Eosinophils # (Auto) 0.2 x10^3/uL (0.0-0.7) Basophils # (Auto) 0.1 x10^3/uL (0.0-0.2) Sodium Level 136 mmol/L (136-145) Potassium Level 4.0 mmol/L (3.5-5.1) Chloride Level 100 mmol/L (98-107) Carbon Dioxide Level 31 mmol/L (21-32) Anion Gap 5 (6-14) Blood Urea Nitrogen 36 mg/dL (8-26) Creatinine 4.1 mg/dL (0.7-1.3) Estimated GFR (Cockcroft-Gault) 14.1 BUN/Creatinine Ratio 9 (6-20) Glucose Level 122 mg/dL (70-99) Lactic Acid Level 0.5 mmol/L (0.4-2.0) Calcium Level 8.3 mg/dL (8.5-10.1) Magnesium Level 2.0 mg/dL (1.8-2.4) Total Bilirubin 0.3 mg/dL (0.2-1.0) Aspartate Amino Transf (AST/SGOT) 12 U/L (15-37) Alanine Aminotransferase (ALT/SGPT) 11 U/L (16-63) Alkaline Phosphatase 59 U/L (46-116) Creatine Kinase 39 U/L (39-308) Creatine Kinase MB (Mass) 0.9 ng/mL (0.0-3.6) Creatine Kinase MB Relative Index % (0-4) Troponin I Quantitative < 0.017 ng/mL (0.000-0.055) < 0.017 ng/mL (0.000-0.055) OS-Suh-V-Type Natriuretic Peptide > 97681 pg/mL (0-449) Total Protein 6.0 g/dL (6.4-8.2) Albumin 2.8 g/dL (3.4-5.0) Albumin/Globulin Ratio 0.9 (1.0-1.7) Lipase 49 U/L (73-393) Glucose (Fingerstick) 102 mg/dL (70-99) 96 mg/dL (70-99) Laboratory Tests Test 02/12/20 12:20 02/12/20 16:48 02/12/20 16:50 02/12/20 21:38 White Blood Count 6.2 x10^3/uL (4.0-11.0) Red Blood Count 3.39 x10^6/uL (4.30-5.70) Hemoglobin 10.6 g/dL (13.0-17.5) Hematocrit 31.4 % (39.0-53.0) Mean Corpuscular Volume 93 fL (79-100) Mean Corpuscular Hemoglobin 31 pg (25-35) Mean Corpuscular Hemoglobin Concent 34 g/dL (31-37) Red Cell Distribution Width 15.6 % (11.5-14.5) Platelet Count 326 x10^3/uL (140-400) Neutrophils (%) (Auto) 66 % (31-73) Lymphocytes (%) (Auto) 20 % (24-48) Monocytes (%) (Auto) 9 % (0-9) Eosinophils (%) (Auto) 4 % (0-3) Basophils (%) (Auto) 1 % (0-3) Neutrophils # (Auto) 4.0 x10^3/uL (1.8-7.7) Lymphocytes # (Auto) 1.3 x10^3/uL (1.0-4.8) Monocytes # (Auto) 0.6 x10^3/uL (0.0-1.1) Eosinophils # (Auto) 0.2 x10^3/uL (0.0-0.7) Basophils # (Auto) 0.1 x10^3/uL (0.0-0.2) Sodium Level 136 mmol/L (136-145) Potassium Level 4.0 mmol/L (3.5-5.1) Chloride Level 100 mmol/L (98-107) Carbon Dioxide Level 31 mmol/L (21-32) Anion Gap 5 (6-14) Blood Urea Nitrogen 36 mg/dL (8-26) Creatinine 4.1 mg/dL (0.7-1.3) Estimated GFR (Cockcroft-Gault) 14.1 BUN/Creatinine Ratio 9 (6-20) Glucose Level 122 mg/dL (70-99) Lactic Acid Level 0.5 mmol/L (0.4-2.0) Calcium Level 8.3 mg/dL (8.5-10.1) Magnesium Level 2.0 mg/dL (1.8-2.4) Total Bilirubin 0.3 mg/dL (0.2-1.0) Aspartate Amino Transf (AST/SGOT) 12 U/L (15-37) Alanine Aminotransferase (ALT/SGPT) 11 U/L (16-63) Alkaline Phosphatase 59 U/L (46-116) Creatine Kinase 39 U/L (39-308) Creatine Kinase MB (Mass) 0.9 ng/mL (0.0-3.6) Creatine Kinase MB Relative Index % (0-4) Troponin I Quantitative < 0.017 ng/mL (0.000-0.055) < 0.017 ng/mL (0.000-0.055) EG-Xra-O-Type Natriuretic Peptide > 77089 pg/mL (0-449) Total Protein 6.0 g/dL (6.4-8.2) Albumin 2.8 g/dL (3.4-5.0) Albumin/Globulin Ratio 0.9 (1.0-1.7) Lipase 49 U/L (73-393) Glucose (Fingerstick) 102 mg/dL (70-99) 96 mg/dL (70-99) VTE Prophylaxis Ordered VTE Prophylaxis Devices: Yes VTE Pharmacological Prophylaxi: Yes Assessment/Plan Assessment/Plan Assessment:Hypoxic respiratory failure, CHF exacerbation, ESRD, malnutrition Plan: Will diurese with IV lasix and fluid restriction. Monitor I's & O's, low sodium diet. Consult to nephrology to continue regular dialysis, and further dialysis as necessary for volume overload. VTE prophylaxis, Full Code. ZHANG LIAO MD Feb 12, 2020 22:47
[2020-02-12] MEDS ORDERED: DOCUSATE SODIUM 100 MG CAPSULE. PO PRN (23:00)
[2020-02-12] MEDS ORDERED: BISACODYL 10 MG SUPP.RECT. PR PRN (23:00)
[2020-02-12] MEDS ORDERED: ALBUTEROL SULFATE 2.5 MG/3 ML NEBU. NEB PRN (23:00)
[2020-02-12] MEDS ORDERED: ACETAMINOPHEN 325 MG TABLET. PO PRN (23:00)
[2020-02-12 23:56] VITALS: BP 169/74
[2020-02-13] MEDS: ATORVASTATIN CALCIUM 20 MG TABLET PO SCH ×3 (00:50→21:24)
[2020-02-13] MEDS: TAMSULOSIN 0.4 MG CAP.ER.24H. PO SCH ×3 (00:50→21:24)
[2020-02-13 03:36] VITALS: BP 170/75
[2020-02-13 06:22] LABS: BASO # 0.1 x10^3/uL (0.0-0.2); BASO % 1 % (0-3); EOS # 0.2 x10^3/uL (0.0-0.7); EOS % 3 % (0-3); HEMATOCRIT 34.1 % (39.0-53.0); HEMOGLOBIN 11.1 g/dL (13.0-17.5); LYMPH # 1.2 x10^3/uL (1.0-4.8); LYMPH % 20 % (24-48); MEAN CORPUSCULAR HEMOGLOBIN 30 pg (25-35); MEAN CORPUSCULAR HGB CONC 33 g/dL (31-37); MEAN CORPUSCULAR VOLUME 93 fL (79-100); MONO # 0.5 x10^3/uL (0.0-1.1); MONO % 8 % (0-9); NEUT # 4.2 x10^3/uL (1.8-7.7); NEUT % 68 % (31-73); PLATELET COUNT 301 x10^3/uL (140-400); RED BLOOD COUNT 3.68 x10^6/uL (4.30-5.70); RED CELL DISTRIBUTION WIDTH 15.9 % (11.5-14.5); WHITE BLOOD COUNT 6.2 x10^3/uL (4.0-11.0)
[2020-02-13 06:59] LABS: CALCIUM 8.2 mg/dL (8.5-10.1); CREATININE 4.4 mg/dL (0.7-1.3); POTASSIUM 3.9 mmol/L (3.5-5.1)
[2020-02-13 07:00] VITALS: BP 179/77
[2020-02-13] MEDS: INSULIN LISPRO 300 UNITS/3 ML VIAL. SQ SCH ×3 (08:00→17:00)
[2020-02-13] MEDS ORDERED: IV NORMAL SALINE 1000ML BAG 1,000 ML IV PRN ×2 (08:58)
[2020-02-13] MEDS ORDERED: DIALYSIS PATIENT. MC PRN (09:00)
[2020-02-13] MEDS ORDERED: ACETAMINOPHEN 500 MG TABLET PO PRN (09:00)
[2020-02-13] MEDS: HEPARIN for SUB-Q USE 5,000 UNIT/ML VIAL. SQ SCH ×2 (09:00→21:25)
[2020-02-13] MEDS ORDERED: diphenhydrAMINE 50 MG/ML VIAL IV PRN ×2 (09:00)
[2020-02-13] MEDS ORDERED: ALBUMIN HUMAN 25% 200 ML IV PRN (09:00)
--- NOTE | 2020-02-13 09:30 | NUR ---
This RN went to round on patient and he stated that he has "been calling for help for hours" and this RN explained that she is here to help patient now and he stated he "just wants to piss and shit all over myself" instead of allowing this RN to help him use urinal. This RN asked if she could use stethoscope to listen to patient and patient stated yelling at this RN stating that "you need to learn to do your fucking job" and to "get out of my room." This RN turned around and left. Shawna, legal practice manager of [address] [place] [address] notified.
--- NOTE | 2020-02-13 12:19 | PDOC2 ---
CONSULT Date of Consult Date of Consult DATE: 02/13/20 TIME: 12:15 Reason for Consult Reason for Consult: RENAL FAILURE Referring Physician Referring Physician: KESHAWN Identification/Chief Complaint Chief Complaint SOB Source Source: Chart review, Patient History of Present Illness Reason for Visit: THIS IS A 79 YR WITH ESRD ON OP HD ON MWF. MISSED HIS TX YESTERDAY DUE TO SOB AND CAME TO ER. IMAGING SUGGESTIVE OF VASCULAR CONGESTION. CURRENTLY HAVING COVID 19 RULED OUT. LABS ARE C/W ESRD. ESRD DUE HTN. HE IS COMPLIANT. HIS DIALYSIS IS VIA A TDC AND AN AV ACCESS PENDING AT THIS TIME. Past Medical History Cardiovascular: CAD, HTN, VA, Hyperlipidemia GI: Diverticulosis Heme/Onc: Anemia NOS Renal/: Chronic renal insuff, Benign prostatic enlarg. Endocrine: Diabetes, Hyperparathyroidism Past Surgical History Past Surgical History: Arthroscopy, Cholecystectomy, Tonsillectomy, Other Family History Family History: No Significant, Depression, Hypertension Social History No ALCOHOL: none Drugs: None Lives: with Family Current Problem List Problem List Problems Medical Problems: (1) Dyspnea Status: Acute (2) ESRD (end stage renal disease) on dialysis Status: Acute (3) Pleural effusion Status: Acute (4) Suspected 2019 novel coronavirus infection Status: Acute Current Medications Current Medications Current Medications Ondansetron HCl (Zofran) 4 mg PRN Q8HRS PRN IV NAUSEA/VOMITING; Start 02/12/20 at 15:30; Stop 02/13/20 at 15:29 Insulin Human Lispro (HumaLOG) 0-5 UNITS TIDWMEALS SQ ; Start 02/12/20 at 17:00 Dextrose (Dextrose 50%-Water Syringe) 12.5 gm PRN Q15MIN PRN IV SEE COMMENTS; Start 02/12/20 at 15:30 Acetaminophen (Tylenol) 650 mg PRN Q4HRS PRN PO TEMP OVER 100.4F OR MILD PAIN; Start 02/12/20 at 23:00 Albuterol Sulfate (Ventolin Neb Soln) 2.5 mg PRN Q4HRS PRN NEB SHORTNESS OF BREATH; Start 02/12/20 at 23:00 Amlodipine Besylate (Norvasc) 10 mg DAILY PO ; Start 02/13/20 at 09:00 Aspirin (Aspirin Chewable) 81 mg DAILY PO ; Start 02/13/20 at 09:00 Atorvastatin Calcium (Lipitor) 20 mg QHS PO ; Start 02/13/20 at 00:00 Calcium Carbonate/ Glycine (Tums) 500 mg QHS PO ; Start 02/13/20 at 00:00 Docusate Sodium (Colace) 100 mg PRN BID PRN PO CONSTIPATION 1ST CHOICE; Start 02/12/20 at 23:00 Vitamin B Complex/ Vitamin C (Lacy-Mark) 1 tab DAILY PO ; Start 02/13/20 at 09:00 Isosorbide Mononitrate (Imdur) 60 mg DAILY PO ; Start 02/13/20 at 09:00 Lisinopril (Prinivil) 40 mg DAILY PO ; Start 02/13/20 at 09:00 Tamsulosin HCl (Flomax) 0.4 mg QHS PO ; Start 02/13/20 at 00:00 Bisacodyl (Dulcolax Supp) 10 mg PRN DAILY PRN [place] CONSTIPATION 2ND CHOICE; Start 02/12/20 at 23:00 Heparin Sodium (Porcine) (Heparin Sodium) 5,000 unit Q12HR SQ ; Start 02/13/20 at 09:00 Furosemide (Lasix) 40 mg DAILY PO ; Start 02/13/20 at 09:00 Sodium Chloride 1,000 ml @ 1,000 mls/hr Q1H PRN IV hypotension; Start 02/13/20 at 08:58; Stop 02/13/20 at 14:57 Albumin Human 200 ml @ 200 mls/hr 1X PRN PRN IV Hypotension; Start 02/13/20 at 09:00; Stop 02/13/20 at 14:59 Acetaminophen (Tylenol) 500 mg 1X PRN PRN PO MILD PAIN / TEMP > 100.3'F; Start 02/13/20 at 09:00; Stop 02/14/20 at 08:59 Diphenhydramine HCl (Benadryl) 25 mg 1X PRN PRN IV ITCHING; Start 02/13/20 at 09:00; Stop 02/14/20 at 08:59 Diphenhydramine HCl (Benadryl) 25 mg 1X PRN PRN IV ITCHING; Start 02/13/20 at 09:00; Stop 02/14/20 at 08:59 Sodium Chloride 1,000 ml @ 400 mls/hr Q2H30M PRN IV PATENCY; Start 02/13/20 at 08:58; Stop 02/13/20 at 20:57 Info (PHARMACY MONITORING -- do not chart) 1 each PRN DAILY PRN MC SEE COMMENTS; Start 02/13/20 at 09:00 Active Scripts Active Dok (Docusate Sodium) 100 Mg Capsule 100 Mg PO PRN BID PRN 30 Days Tylenol (Acetaminophen) 325 Mg Tablet 650 Mg PO PRN Q4HRS PRN 30 Days Proair Hfa (Albuterol Sulfate) 8.5 Gm Hfa.aer.ad 2.5 Mg NEB PRN Q4HRS PRN 14 Days Lisinopril 40 Mg Tablet 40 Mg PO DAILY Amlodipine Besylate 10 Mg Tablet 10 Mg PO DAILY Isosorbide Mononitrate Er (Isosorbide Mononitrate) 30 Mg Tab.er.24h 60 Mg PO DAILY Reported Noxifol-D3 2,500 Unit-1 mg Tab (Vitamin D3/Folic Acid) 2,500 Unit Tablet 5,000 Unit PO QSA Tums (Calcium Carbonate) 200 Mg Tab.chew 2 Tab.chew PO QHS Nephro-Mark Tablet (Folic Acid/Vitamin B Comp W-C) 0.8 Mg Tablet 1 Tab PO DAILY Furosemide 40 Mg Tablet 1 Tab PO DAILY Flomax (Tamsulosin Hcl) 0.4 Mg Cap.er.24h 0.4 Mg PO QHS Aspirin 81 Mg Tab.chew 81 Mg PO DAILY Atorvastatin Calcium 40 Mg Tablet 0.5 Tab PO QHS Basaglar Kwikpen U-100 (Insulin Glargine,Hum.rec.anlog) 100 Unit/1 Ml Insuln.pen 20 Unit SQ DAILY Allergies Allergies: Coded Allergies: No Known Medication Allergies (Verified Allergy, Unknown, 06/29/19) ROS General: YES: Fatigue, Malaise, Appetite PSYCHOLOGICAL ROS: YES: Depression Eyes: Yes Decreased vision ALLERGY AND IMMUNOLOGY: YES: Seasonal Allergies Respiratory: YES: Cough, Orthopnea, Shortness of breath Cardiovascular: yes Orthopnea, yes Edema Gastrointestinal: Yes Constipation Genitourinary: YES Other (OLIGURIA) Musculoskeletal: Yes Muscular Weakness Neurological: Yes Weakness Skin: Yes Dry Skin Physical Exam General: Alert, Cooperative, mild distress HEENT: Atraumatic, PERRLA Lungs: Other (DECREASED AT BASES) Heart: Regular rate Abdomen: Normal bowel sounds, Soft, No tenderness Extremities: No clubbing Skin: No breakdown Neuro: Normal speech Psych/Mental Status: Mental status NL, Mood NL MUSCULOSKELETAL: No joint tenderness, No deformity Vitals VITALS Vital Signs Date Time Temp Pulse Resp B/P (MAP) Pulse Ox O2 Delivery O2 Flow Rate FiO2 02/13/20 07:00 98.7 77 18 179/77 (111) 96 Nasal Cannula 4.0 98.7 Labs Labs Laboratory Tests Test 02/12/20 12:20 02/12/20 16:48 02/12/20 16:50 02/12/20 21:38 White Blood Count 6.2 x10^3/uL (4.0-11.0) Red Blood Count 3.39 x10^6/uL (4.30-5.70) Hemoglobin 10.6 g/dL (13.0-17.5) Hematocrit 31.4 % (39.0-53.0) Mean Corpuscular Volume 93 fL (79-100) Mean Corpuscular Hemoglobin 31 pg (25-35) Mean Corpuscular Hemoglobin Concent 34 g/dL (31-37) Red Cell Distribution Width 15.6 % (11.5-14.5) Platelet Count 326 x10^3/uL (140-400) Neutrophils (%) (Auto) 66 % (31-73) Lymphocytes (%) (Auto) 20 % (24-48) Monocytes (%) (Auto) 9 % (0-9) Eosinophils (%) (Auto) 4 % (0-3) Basophils (%) (Auto) 1 % (0-3) Neutrophils # (Auto) 4.0 x10^3/uL (1.8-7.7) Lymphocytes # (Auto) 1.3 x10^3/uL (1.0-4.8) Monocytes # (Auto) 0.6 x10^3/uL (0.0-1.1) Eosinophils # (Auto) 0.2 x10^3/uL (0.0-0.7) Basophils # (Auto) 0.1 x10^3/uL (0.0-0.2) Sodium Level 136 mmol/L (136-145) Potassium Level 4.0 mmol/L (3.5-5.1) Chloride Level 100 mmol/L (98-107) Carbon Dioxide Level 31 mmol/L (21-32) Anion Gap 5 (6-14) Blood Urea Nitrogen 36 mg/dL (8-26) Creatinine 4.1 mg/dL (0.7-1.3) Estimated GFR (Cockcroft-Gault) 14.1 BUN/Creatinine Ratio 9 (6-20) Glucose Level 122 mg/dL (70-99) Lactic Acid Level 0.5 mmol/L (0.4-2.0) Calcium Level 8.3 mg/dL (8.5-10.1) Magnesium Level 2.0 mg/dL (1.8-2.4) Total Bilirubin 0.3 mg/dL (0.2-1.0) Aspartate Amino Transf (AST/SGOT) 12 U/L (15-37) Alanine Aminotransferase (ALT/SGPT) 11 U/L (16-63) Alkaline Phosphatase 59 U/L (46-116) Creatine Kinase 39 U/L (39-308) Creatine Kinase MB (Mass) 0.9 ng/mL (0.0-3.6) Creatine Kinase MB Relative Index % (0-4) Troponin I Quantitative < 0.017 ng/mL (0.000-0.055) < 0.017 ng/mL (0.000-0.055) ZB-Dvd-Z-Type Natriuretic Peptide > 66428 pg/mL (0-449) Total Protein 6.0 g/dL (6.4-8.2) Albumin 2.8 g/dL (3.4-5.0) Albumin/Globulin Ratio 0.9 (1.0-1.7) Lipase 49 U/L (73-393) Glucose (Fingerstick) 102 mg/dL (70-99) 96 mg/dL (70-99) Test 02/12/20 21:50 02/13/20 05:56 02/13/20 09:58 Troponin I Quantitative < 0.017 ng/mL (0.000-0.055) White Blood Count 6.2 x10^3/uL (4.0-11.0) Red Blood Count 3.68 x10^6/uL (4.30-5.70) Hemoglobin 11.1 g/dL (13.0-17.5) Hematocrit 34.1 % (39.0-53.0) Mean Corpuscular Volume 93 fL (79-100) Mean Corpuscular Hemoglobin 30 pg (25-35) Mean Corpuscular Hemoglobin Concent 33 g/dL (31-37) Red Cell Distribution Width 15.9 % (11.5-14.5) Platelet Count 301 x10^3/uL (140-400) Neutrophils (%) (Auto) 68 % (31-73) Lymphocytes (%) (Auto) 20 % (24-48) Monocytes (%) (Auto) 8 % (0-9) Eosinophils (%) (Auto) 3 % (0-3) Basophils (%) (Auto) 1 % (0-3) Neutrophils # (Auto) 4.2 x10^3/uL (1.8-7.7) Lymphocytes # (Auto) 1.2 x10^3/uL (1.0-4.8) Monocytes # (Auto) 0.5 x10^3/uL (0.0-1.1) Eosinophils # (Auto) 0.2 x10^3/uL (0.0-0.7) Basophils # (Auto) 0.1 x10^3/uL (0.0-0.2) Sodium Level 138 mmol/L (136-145) Potassium Level 3.9 mmol/L (3.5-5.1) Chloride Level 101 mmol/L (98-107) Carbon Dioxide Level 29 mmol/L (21-32) Anion Gap 8 (6-14) Blood Urea Nitrogen 40 mg/dL (8-26) Creatinine 4.4 mg/dL (0.7-1.3) Estimated GFR (Cockcroft-Gault) 13.0 Glucose Level 98 mg/dL (70-99) Calcium Level 8.2 mg/dL (8.5-10.1) Glucose (Fingerstick) 106 mg/dL (70-99) Laboratory Tests Test 02/12/20 12:20 02/12/20 16:48 02/12/20 16:50 02/12/20 21:38 White Blood Count 6.2 x10^3/uL (4.0-11.0) Red Blood Count 3.39 x10^6/uL (4.30-5.70) Hemoglobin 10.6 g/dL (13.0-17.5) Hematocrit 31.4 % (39.0-53.0) Mean Corpuscular Volume 93 fL (79-100) Mean Corpuscular Hemoglobin 31 pg (25-35) Mean Corpuscular Hemoglobin Concent 34 g/dL (31-37) Red Cell Distribution Width 15.6 % (11.5-14.5) Platelet Count 326 x10^3/uL (140-400) Neutrophils (%) (Auto) 66 % (31-73) Lymphocytes (%) (Auto) 20 % (24-48) Monocytes (%) (Auto) 9 % (0-9) Eosinophils (%) (Auto) 4 % (0-3) Basophils (%) (Auto) 1 % (0-3) Neutrophils # (Auto) 4.0 x10^3/uL (1.8-7.7) Lymphocytes # (Auto) 1.3 x10^3/uL (1.0-4.8) Monocytes # (Auto) 0.6 x10^3/uL (0.0-1.1) Eosinophils # (Auto) 0.2 x10^3/uL (0.0-0.7) Basophils # (Auto) 0.1 x10^3/uL (0.0-0.2) Sodium Level 136 mmol/L (136-145) Potassium Level 4.0 mmol/L (3.5-5.1) Chloride Level 100 mmol/L (98-107) Carbon Dioxide Level 31 mmol/L (21-32) Anion Gap 5 (6-14) Blood Urea Nitrogen 36 mg/dL (8-26) Creatinine 4.1 mg/dL (0.7-1.3) Estimated GFR (Cockcroft-Gault) 14.1 BUN/Creatinine Ratio 9 (6-20) Glucose Level 122 mg/dL (70-99) Lactic Acid Level 0.5 mmol/L (0.4-2.0) Calcium Level 8.3 mg/dL (8.5-10.1) Magnesium Level 2.0 mg/dL (1.8-2.4) Total Bilirubin 0.3 mg/dL (0.2-1.0) Aspartate Amino Transf (AST/SGOT) 12 U/L (15-37) Alanine Aminotransferase (ALT/SGPT) 11 U/L (16-63) Alkaline Phosphatase 59 U/L (46-116) Creatine Kinase 39 U/L (39-308) Creatine Kinase MB (Mass) 0.9 ng/mL (0.0-3.6) Creatine Kinase MB Relative Index % (0-4) Troponin I Quantitative < 0.017 ng/mL (0.000-0.055) < 0.017 ng/mL (0.000-0.055) OP-Qyf-V-Type Natriuretic Peptide > 01803 pg/mL (0-449) Total Protein 6.0 g/dL (6.4-8.2) Albumin 2.8 g/dL (3.4-5.0) Albumin/Globulin Ratio 0.9 (1.0-1.7) Lipase 49 U/L (73-393) Glucose (Fingerstick) 102 mg/dL (70-99) 96 mg/dL (70-99) Test 02/12/20 21:50 02/13/20 05:56 02/13/20 09:58 Troponin I Quantitative < 0.017 ng/mL (0.000-0.055) White Blood Count 6.2 x10^3/uL (4.0-11.0) Red Blood Count 3.68 x10^6/uL (4.30-5.70) Hemoglobin 11.1 g/dL (13.0-17.5) Hematocrit 34.1 % (39.0-53.0) Mean Corpuscular Volume 93 fL (79-100) Mean Corpuscular Hemoglobin 30 pg (25-35) Mean Corpuscular Hemoglobin Concent 33 g/dL (31-37) Red Cell Distribution Width 15.9 % (11.5-14.5) Platelet Count 301 x10^3/uL (140-400) Neutrophils (%) (Auto) 68 % (31-73) Lymphocytes (%) (Auto) 20 % (24-48) Monocytes (%) (Auto) 8 % (0-9) Eosinophils (%) (Auto) 3 % (0-3) Basophils (%) (Auto) 1 % (0-3) Neutrophils # (Auto) 4.2 x10^3/uL (1.8-7.7) Lymphocytes # (Auto) 1.2 x10^3/uL (1.0-4.8) Monocytes # (Auto) 0.5 x10^3/uL (0.0-1.1) Eosinophils # (Auto) 0.2 x10^3/uL (0.0-0.7) Basophils # (Auto) 0.1 x10^3/uL (0.0-0.2) Sodium Level 138 mmol/L (136-145) Potassium Level 3.9 mmol/L (3.5-5.1) Chloride Level 101 mmol/L (98-107) Carbon Dioxide Level 29 mmol/L (21-32) Anion Gap 8 (6-14) Blood Urea Nitrogen 40 mg/dL (8-26) Creatinine 4.4 mg/dL (0.7-1.3) Estimated GFR (Cockcroft-Gault) 13.0 Glucose Level 98 mg/dL (70-99) Calcium Level 8.2 mg/dL (8.5-10.1) Glucose (Fingerstick) 106 mg/dL (70-99) Assessment/Plan Assessment/Plan IMP CHF-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
--- NOTE | 2020-02-13 12:45 | PDOC ---
[employer] PROGRESS NOTE Date of Service DOS: DATE: 02/13/20 TIME: 12:38 Chief Complaint Chief Complaint Acute Hypoxic respiratory failure CHF exacerbation ESRD malnutrition Appreciate nephrology recommendations Strict I's and O's We will continue with scheduled hemodialysis Heparin for DVT prophylaxis ADA diet Full code Discussed with RN and SW Disposition HD today Surrogate decision maker is self History of Present Illness History of Present Illness 79 yo male with PMHx ESRD on HD M/W/F, who presents with worsening shortness of breath for the past 2 weeks. He reports associated cough and weakness. Patient did not receive HD today, as he came to the ED instead for concerns of his symptoms. Patient was unfortunately very somnolent at the time of my evaluation, and further history could not be obtained. 02/13/2020 No acute events overnight. Patient will be going to hemodialysis today. Shortness of breath have improved. Patient's chart, labs, images were reviewed and discussed with RN Vitals/I&O Vitals/I&O: Vital Signs Date Time Temp Pulse Resp B/P (MAP) Pulse Ox O2 Delivery O2 Flow Rate FiO2 02/13/20 07:00 98.7 77 18 179/77 (111) 96 Nasal Cannula 4.0 98.7 I & O 02/12/20 02/12/20 02/13/20 15:00 23:00 07:00 Intake Total 775 ml 0 ml Balance 775 ml 0 ml Physical Exam General: Alert, Cooperative, mild distress Heart: Regular rate Lungs: Other Abdomen: Normal bowel sounds, Soft, No tenderness Extremities: No clubbing Skin: No breakdown Labs Labs: Laboratory Tests Test 02/12/20 16:48 02/12/20 16:50 02/12/20 21:38 02/12/20 21:50 Glucose (Fingerstick) 102 mg/dL (70-99) 96 mg/dL (70-99) Troponin I Quantitative < 0.017 ng/mL (0.000-0.055) < 0.017 ng/mL (0.000-0.055) Test 02/13/20 05:56 02/13/20 09:58 White Blood Count 6.2 x10^3/uL (4.0-11.0) Red Blood Count 3.68 x10^6/uL (4.30-5.70) Hemoglobin 11.1 g/dL (13.0-17.5) Hematocrit 34.1 % (39.0-53.0) Mean Corpuscular Volume 93 fL (79-100) Mean Corpuscular Hemoglobin 30 pg (25-35) Mean Corpuscular Hemoglobin Concent 33 g/dL (31-37) Red Cell Distribution Width 15.9 % (11.5-14.5) Platelet Count 301 x10^3/uL (140-400) Neutrophils (%) (Auto) 68 % (31-73) Lymphocytes (%) (Auto) 20 % (24-48) Monocytes (%) (Auto) 8 % (0-9) Eosinophils (%) (Auto) 3 % (0-3) Basophils (%) (Auto) 1 % (0-3) Neutrophils # (Auto) 4.2 x10^3/uL (1.8-7.7) Lymphocytes # (Auto) 1.2 x10^3/uL (1.0-4.8) Monocytes # (Auto) 0.5 x10^3/uL (0.0-1.1) Eosinophils # (Auto) 0.2 x10^3/uL (0.0-0.7) Basophils # (Auto) 0.1 x10^3/uL (0.0-0.2) Sodium Level 138 mmol/L (136-145) Potassium Level 3.9 mmol/L (3.5-5.1) Chloride Level 101 mmol/L (98-107) Carbon Dioxide Level 29 mmol/L (21-32) Anion Gap 8 (6-14) Blood Urea Nitrogen 40 mg/dL (8-26) Creatinine 4.4 mg/dL (0.7-1.3) Estimated GFR (Cockcroft-Gault) 13.0 Glucose Level 98 mg/dL (70-99) Calcium Level 8.2 mg/dL (8.5-10.1) Glucose (Fingerstick) 106 mg/dL (70-99) Assessment and Plan Assessmemt and Plan Problems Medical Problems: (1) Dyspnea Status: Acute (2) ESRD (end stage renal disease) on dialysis Status: Acute (3) Pleural effusion Status: Acute (4) Suspected 2019 novel coronavirus infection Status: Acute Comment Review of Relevant I have reviewed the following items kristin (where applicable) has been applied. Justifications for Admission Other Justification CHRISTIANSEN,LUKE MD Feb 13, 2020 12:45
--- NOTE | 2020-02-13 14:45 | NUR ---
Pt stated to this RN that he called the police department because he hasn't been fed and nobody has came in his room in hours. Police Department called nursing station to notify us of this and we confirmed that patient was safe at the hospital. This RN explained that nursing staff will help patient with meals if he allows us too. Pt then politely asked this RN to cut his meat and open his packages of sugar and then stated "I am sorry for being such an asshole but I am." This RN asked patient if he normally wears oxygen at home and he stated that he does but only 3 L "most of the time." Will continue to monitor.
[2020-02-13] MEDS: ISOSORBIDE MONONITRATE ER 30 MG TAB.ER.24H PO SCH (15:20)
[2020-02-13] MEDS: ASPIRIN CHEWABLE 81 MG TABLET. PO SCH (15:21)
[2020-02-13] MEDS: amLODIPine BESYLATE 10 MG TABLET PO SCH (15:21)
[2020-02-13] MEDS: LISINOPRIL 20 MG TABLET PO SCH (15:21)
[2020-02-13] MEDS: FOLIC/VIT B COMP W-C (RENAL) TABLET. PO SCH (15:21)
[2020-02-13] MEDS: FUROSEMIDE 40 MG TABLET. PO SCH (15:22)
--- NOTE | 2020-02-13 17:27 | NUR ---
SW following. Spoke with RN and reviewed chart. Pt from home with . Pt on 4l 02. Pt COVID negative. Pt does out-patient dialysis on MWF at [facility], , (fax). Pt was admitted to [facility] back in September and discharged home with new 02 setup at home and [facility] per chart review. SW to follow.
[2020-02-13 19:30] VITALS: BP 113/56
[2020-02-13] MEDS: CALCIUM CARBONATE 500 MG TAB.CHEW PO SCH ×2 (21:24)
--- NOTE | 2020-02-13 22:00 | NUR ---
Spoke to and notified of pt moving to another floor since his results were negative and informed of visiting hours. also given update of pt's status. No further questions. informed of room number and informed to call with any questions.
--- NOTE | 2020-02-13 22:10 | NUR ---
Pt transferred to 536 and report given.
[2020-02-13 23:08] VITALS: BP 110/37
[2020-02-14 03:07] VITALS: BP 125/44
[2020-02-14 04:58] LABS: BASO % 1 % (0-3); EOS # 0.3 x10^3/uL (0.0-0.7); EOS % 5 % (0-3); HEMATOCRIT 34.1 % (39.0-53.0); HEMOGLOBIN 11.1 g/dL (13.0-17.5); LYMPH # 1.3 x10^3/uL (1.0-4.8); LYMPH % 21 % (24-48); MEAN CORPUSCULAR HEMOGLOBIN 30 pg (25-35); MEAN CORPUSCULAR HGB CONC 33 g/dL (31-37); MEAN CORPUSCULAR VOLUME 93 fL (79-100); MONO # 0.6 x10^3/uL (0.0-1.1); MONO % 10 % (0-9); NEUT % 63 % (31-73); PLATELET COUNT 307 x10^3/uL (140-400); RED BLOOD COUNT 3.68 x10^6/uL (4.30-5.70); WHITE BLOOD COUNT 6.2 x10^3/uL (4.0-11.0)
[2020-02-14 05:33] LABS: CALCIUM 8.4 mg/dL (8.5-10.1); GFR 20.3
[2020-02-14 07:00] VITALS: BP 146/56
[2020-02-14] MEDS: INSULIN LISPRO 300 UNITS/3 ML VIAL. SQ SCH ×3 (08:00→17:00)
[2020-02-14] MEDS: ISOSORBIDE MONONITRATE ER 30 MG TAB.ER.24H PO SCH (09:26)
[2020-02-14] MEDS: ASPIRIN CHEWABLE 81 MG TABLET. PO SCH (09:27)
[2020-02-14] MEDS: amLODIPine BESYLATE 10 MG TABLET PO SCH (09:27)
[2020-02-14] MEDS: FUROSEMIDE 40 MG TABLET. PO SCH (09:27)
[2020-02-14] MEDS: FOLIC/VIT B COMP W-C (RENAL) TABLET. PO SCH (09:27)
[2020-02-14] MEDS: LISINOPRIL 20 MG TABLET PO SCH (09:28)
[2020-02-14] MEDS: HEPARIN for SUB-Q USE 5,000 UNIT/ML VIAL. SQ SCH (09:31)
--- NOTE | 2020-02-14 09:55 | DISCH ---
DISCHARGE INSTRUCTIONS Condition on Discharge Condition on Discharge: Guarded Activity After Discharge Activity Instructions for Disc: Activity as tolerated Exercise Instruction after Dis: Progress as tolerated Weight Bearing Status after Di: As tolerated Diet after Discharge Diet after Discharge: Renal Dialysis, Diabetic No Calorie Level Diet Texture: Regular Liquid Texture: Thin Liquid Swallowing Supervision: None needed Wound Incision Care Wound/Incision Care: Other, see below Checks after Discharge Checks after discharge: Check blood press - daily, Check blood sugar, ac/hs DC Comment: Renal panel weekly Contacting the DR. after DC Call your doctor for: If your condition worsens Follow-Up Follow up with: PCP within 1 week of discharge Follow Up With: Continued with your regularly scheduled dialysis sessions Treatment/Equipment after DC Adaptive Equipment Issued: None Discharge Respiratory Equipmen: Oxygen LUKE CHRISTIANSEN MD Feb 14, 2020 09:55
[2020-02-14 11:00] VITALS: BP 147/52
--- NOTE | 2020-02-14 11:19 | SNU/HH DC ---
DISCHARGE WITH HOME HEALTH DISCHARGE INFORMATION: Discharge Date: Feb 14, 2020 Final Diagnosis: Problems Medical Problems: (1) Dyspnea Status: Acute (2) ESRD (end stage renal disease) on dialysis Status: Acute (3) Pleural effusion Status: Acute (4) Suspected 2019 novel coronavirus infection Status: Acute Condition on Discharge: Stable CODE STATUS: Code Status: Full HOME HEALTH: Face to Face: I certify this patient is under my care and that I, or a nurse practitioner or physician's fundraising assistant working with me, had a face to face encounter that meets the physician face to face encounter requirements with this patient on []. Medical Complications: Other (ESRD) RN For Eval/Treatment: Yes Physical Therapy For: Evalulation/Treatment Occupational Therapy For: Evaluation/Treatment Speech Language Pathology For: Evaluation/Treatment Home Health Aide For: Self-care Pt Meets Homebound Status: Unsteady balance w/ amb, POST DISCHARGE ORDERS: Activity Instructions for Disc: Activity as tolerated Weight Bearing Status after Di: As tolerated DIET AFTER DISCHARGE: Renal Wound/Incision Care: Other, see below CHECKS AFTER DISCHARGE: Checks after discharge: Check blood press - daily, Check blood sugar, ac/hs FOLLOW-UP: Follow up with: PCP within 1 week of discharge Follow Up With: Continued with your regularly scheduled dialysis sessions TREATMENT/EQUIPMENT ORDERS: Adaptive Equipment Issued: None Discharge Respiratory Equipmen: Oxygen CERTIFICATION STATEMENT: Certification Statement: Certification Statement: Based on the above finding, I certify that this patient is confined to the home and needs intermittent senior living care, physical therapy and/or speech therapy, or continues to need occupational therapy.~ This patient is under my care, and I have initiated the establishment of the plan of care.~ This patient will be followed by myself or a community physician who will periodically review the plan of care. Home Meds Active Scripts Docusate Sodium (DOK) 100 Mg Capsule, 100 MG PO PRN BID PRN for CONSTIPATION for 30 Days, #30 CAP Prov:JAQUAN MENDEZ MD 10/15/19 Acetaminophen (TYLENOL) 325 Mg Tablet, 650 MG PO PRN Q4HRS PRN for TEMP OVER 100.4F OR MILD PAIN for 30 Days, #30 TAB Prov:JAQUAN MENDEZ MD 10/15/19 Albuterol Sulfate (Proair Hfa) 8.5 Gm Hfa.aer.ad, 2.5 MG NEB PRN Q4HRS PRN for SHORTNESS OF BREATH for 14 Days, #1 INHALER Prov:JAQUAN MENDEZ MD 10/15/19 Lisinopril (LISINOPRIL) 40 Mg Tablet, 40 MG PO DAILY for htn, #30 TAB Prov:DEVORAH EUBANKS MD 02/03/19 Amlodipine Besylate (AMLODIPINE BESYLATE) 10 Mg Tablet, 10 MG PO DAILY for htn, #90 TAB Prov:DEVORAH EUBANKS MD 02/03/19 Isosorbide Mononitrate (ISOSORBIDE MONONITRATE ER) 30 Mg Tab.er.24h, 60 MG PO DAILY for htn, #90 TAB.SR Prov:DEVORAH EUBANKS MD 02/03/19 Reported Medications Vitamin D3/Folic Acid (Noxifol-D3 2,500 Unit-1 mg Tab) 2,500 Unit Tablet, 5000 UNIT PO QSA for supplement, TAB 02/12/20 Calcium Carbonate (TUMS) 200 Mg Tab.chew, 2 TAB.CHEW PO QHS for indigestion, TAB.CHEW 02/12/20 Folic Acid/Vitamin B Comp W-C (NEPHRO-JOSE TABLET) 0.8 Mg Tablet, 1 TAB PO DAILY for ESRD, #30 TAB 5 Refills 10/13/19 Furosemide (FUROSEMIDE) 40 Mg Tablet, 1 TAB PO DAILY for chf, edema, #30 TAB 5 Refills 06/28/19 Tamsulosin Hcl (FLOMAX) 0.4 Mg Cap.er.24h, 0.4 MG PO QHS for , TAB 01/30/19 Aspirin (ASPIRIN) 81 Mg Tab.chew, 81 MG PO DAILY for , TAB.CHEW 01/30/19 Atorvastatin Calcium (ATORVASTATIN CALCIUM) 40 Mg Tablet, 0.5 TAB PO QHS for elevated lipids, #30 TAB 5 Refills 10/19/18 Insulin Glargine,Hum.rec.anlog (Basaglar Kwikpen U-100) 100 Unit/1 Ml Insuln.pen, 20 UNIT SQ DAILY for blood sugar, EACH 10/19/18 LUKE CHRISTIANSEN MD Feb 14, 2020 11:19
[2020-02-14] MEDS ORDERED: IV NORMAL SALINE 1000ML BAG 1,000 ML IV PRN ×2 (11:31)
[2020-02-14] MEDS ORDERED: DIALYSIS PATIENT. MC PRN (11:45)
[2020-02-14] MEDS ORDERED: diphenhydrAMINE 50 MG/ML VIAL IV PRN ×2 (11:45)
[2020-02-14] MEDS ORDERED: ACETAMINOPHEN 500 MG TABLET PO PRN (11:45)
[2020-02-14] MEDS ORDERED: ALBUMIN HUMAN 25% 200 ML IV PRN (11:45)
--- NOTE | 2020-02-14 11:48 | PDOC ---
Renal-Progress Notes Subjective Notes Notes NO NEW COMPLAINTS History of Present Illness Hx of present illness STABLE Vitals Vitals Vital Signs Date Time Temp Pulse Resp B/P (MAP) Pulse Ox O2 Delivery O2 Flow Rate FiO2 02/14/20 09:28 72 146/56 02/14/20 07:00 98.5 17 92 Room Air 98.5 02/13/20 20:00 3.5 Weight Weight [ ] I.O. Intake and Output Intake and Output 02/14/20 07:00 Intake Total 660 ml Output Total 0 ml Balance 660 ml Intake Oral 660 ml Output Urine Total 0 ml # Voids 1 Labs Labs Laboratory Tests Test 02/13/20 16:22 02/13/20 21:35 02/14/20 04:35 02/14/20 09:33 Glucose (Fingerstick) 137 mg/dL (70-99) 132 mg/dL (70-99) 110 mg/dL (70-99) White Blood Count 6.2 x10^3/uL (4.0-11.0) Red Blood Count 3.68 x10^6/uL (4.30-5.70) Hemoglobin 11.1 g/dL (13.0-17.5) Hematocrit 34.1 % (39.0-53.0) Mean Corpuscular Volume 93 fL (79-100) Mean Corpuscular Hemoglobin 30 pg (25-35) Mean Corpuscular Hemoglobin Concent 33 g/dL (31-37) Red Cell Distribution Width 15.0 % (11.5-14.5) Platelet Count 307 x10^3/uL (140-400) Neutrophils (%) (Auto) 63 % (31-73) Lymphocytes (%) (Auto) 21 % (24-48) Monocytes (%) (Auto) 10 % (0-9) Eosinophils (%) (Auto) 5 % (0-3) Basophils (%) (Auto) 1 % (0-3) Neutrophils # (Auto) 4.0 x10^3/uL (1.8-7.7) Lymphocytes # (Auto) 1.3 x10^3/uL (1.0-4.8) Monocytes # (Auto) 0.6 x10^3/uL (0.0-1.1) Eosinophils # (Auto) 0.3 x10^3/uL (0.0-0.7) Basophils # (Auto) 0.0 x10^3/uL (0.0-0.2) Sodium Level 136 mmol/L (136-145) Potassium Level 4.0 mmol/L (3.5-5.1) Chloride Level 100 mmol/L (98-107) Carbon Dioxide Level 30 mmol/L (21-32) Anion Gap 6 (6-14) Blood Urea Nitrogen 22 mg/dL (8-26) Creatinine 3.0 mg/dL (0.7-1.3) Estimated GFR (Cockcroft-Gault) 20.3 Glucose Level 95 mg/dL (70-99) Calcium Level 8.4 mg/dL (8.5-10.1) Test 02/14/20 11:13 Glucose (Fingerstick) 120 mg/dL (70-99) Micro Micro Microbiology 02/12/20 Blood Culture - Preliminary, Resulted NO GROWTH AFTER 1 DAY Review of Systems Constitutional: yes: weakness, alert, oriented Ears/Nose/Throat: Yes: no symptom reported Eyes: Yes: no symptom reported Pulmonary: Yes dyspnea Cardiovascular: Yes no symptom reported Gastrointestional: Yes: no symptom reported Genitourinary: Yes: no symptom reported Musculoskeletal: Yes: no symptom reported Skin: Yes no symptom reported Psychiatric/Neurological: Yes: no symptom reported Assessment Assessment IMP CHF-ACUTE ON CHRONIC DIASTOLIC-IMPROVED ANEMIA OF ESRD HX OF HTN ESRD-MWF PLAN HD AGAIN TODAY UF TO DW CHALLENGE HIS TW AGAIN TODAY BY 0.5-1.0 JONAS WHEN NEEDED RULE OUT COVID 19 WILL FOLLOW ROD PELAEZ MD Feb 14, 2020 11:48
--- NOTE | 2020-02-14 13:28 | NUR ---
SW following. Spoke with RN and reviewed chart. Pt clear for discharge home today per Dr. Anderson. Spoke with pt's who will provide transport at 1730 after pt finishes dialysis. Pt's requesting resumption of HH through [facility]. JOSH phoned and faxed clinicals as well as discharge orders to both [facility] and [facility]. Pt to resume out-patient dialysis on discharge. Pt COVID negative. Pt also remains on 4l 02. JOSH spoke with Ronak from [facility] who approved SW sending pt home with an 02 tank. 02 tank delivered to pt's room. RN notified. Patient Choice of Vendor form completed. No further SW needs at this time.
--- NOTE | 2020-02-14 17:36 | PDOC3 ---
[facility]-Discharge Summary Date of Admission: Date of Admission: Feb 12, 2020 Date of Discharge: Date of Discharge: Feb 14, 2020 Admission Diagnosis: Admitting Diagnosis: Hypoxic respiratory failure, CHF exacerbation, ESRD, malnutrition Discharge Diagnosis: Discharge Diagnosis: Acute Hypoxic respiratory failure due to volume overload CHF exacerbation ESRD malnutrition Consults: Consults: Nephrology Hospital Course: Hospital Course: 79 yo male with PMHx ESRD on HD M/W/, who presents with worsening shortness of breath for the past 2 weeks. He reports associated cough and weakness. Patient did not receive HD today, as he came to the ED instead for concerns of his symptoms. Patient was unfortunately very somnolent at the time of my evaluation, and further history could not be obtained. Patient was admitted for emergent hemodialysis and was seen by nephrology. Patient symptoms improved and he remained clinically stable throughout his hospital stay. He was able to undergo one more HD session before discharge without any complications. The rest of his hospital course was uneventful. Disposition: Disposition/Orders: D/C to Home (resume regularly scheduled HD sessions) Activity: Activity: Resume previous activity Diet: Diet: Renal Medications: Home Meds Active Scripts Docusate Sodium (DOK) 100 Mg Capsule, 100 MG PO PRN BID PRN for CONSTIPATION for 30 Days, #30 CAP Prov:JAQUAN MENDEZ MD 10/15/19 Acetaminophen (TYLENOL) 325 Mg Tablet, 650 MG PO PRN Q4HRS PRN for TEMP OVER 100.4F OR MILD PAIN for 30 Days, #30 TAB Prov:JAQUAN MENDEZ MD 10/15/19 Albuterol Sulfate (Proair Hfa) 8.5 Gm Hfa.aer.ad, 2.5 MG NEB PRN Q4HRS PRN for SHORTNESS OF BREATH for 14 Days, #1 INHALER Prov:JAQUAN MENDEZ MD 10/15/19 Lisinopril (LISINOPRIL) 40 Mg Tablet, 40 MG PO DAILY for htn, #30 TAB Prov:DEVORAH EUBANKS MD 02/03/19 Amlodipine Besylate (AMLODIPINE BESYLATE) 10 Mg Tablet, 10 MG PO DAILY for htn, #90 TAB Prov:DEVORAH EUBANKS MD 02/03/19 Isosorbide Mononitrate (ISOSORBIDE MONONITRATE ER) 30 Mg Tab.er.24h, 60 MG PO DAILY for htn, #90 TAB.SR Prov:DEVORAH EUBANKS MD 02/03/19 Reported Medications Vitamin D3/Folic Acid (Noxifol-D3 2,500 Unit-1 mg Tab) 2,500 Unit Tablet, 5000 U NIT PO QSA for supplement, TAB 02/12/20 Calcium Carbonate (TUMS) 200 Mg Tab.chew, 2 TAB.CHEW PO QHS for indigestion, TAB.CHEW 02/12/20 Folic Acid/Vitamin B Comp W-C (NEPHRO-JOSE TABLET) 0.8 Mg Tablet, 1 TAB PO DAILY for ESRD, #30 TAB 5 Refills 10/13/19 Furosemide (FUROSEMIDE) 40 Mg Tablet, 1 TAB PO DAILY for chf, edema, #30 TAB 5 Refills 06/28/19 Tamsulosin Hcl (FLOMAX) 0.4 Mg Cap.er.24h, 0.4 MG PO QHS for , TAB 01/30/19 Aspirin (ASPIRIN) 81 Mg Tab.chew, 81 MG PO DAILY for , TAB.CHEW 01/30/19 Atorvastatin Calcium (ATORVASTATIN CALCIUM) 40 Mg Tablet, 0.5 TAB PO QHS for elevated lipids, #30 TAB 5 Refills 10/19/18 Insulin Glargine,Hum.rec.anlog (Basaglar Kwikpen U-100) 100 Unit/1 Ml Insuln.pen, 20 UNIT SQ DAILY for blood sugar, EACH 10/19/18 Scheduled Amlodipine Besylate (Amlodipine Besylate), 10 MG PO DAILY Aspirin (Aspirin), 81 MG PO DAILY, (Reported) Atorvastatin Calcium (Atorvastatin Calcium), 0.5 TAB PO QHS, (Reported) Calcium Carbonate (Tums), 2 TAB.CHEW PO QHS, (Reported) Folic Acid/Vitamin B Comp W-C (Nephro-Jose Tablet), 1 TAB PO DAILY, (Reported) Furosemide (Furosemide), 1 TAB PO DAILY, (Reported) Insulin Glargine,Hum.rec.anlog (Basaglar Kwikpen U-100), 20 UNIT SQ DAILY, (Reported) Isosorbide Mononitrate (Isosorbide Mononitrate Er), 60 MG PO DAILY Lisinopril (Lisinopril), 40 MG PO DAILY Tamsulosin Hcl (Flomax), 0.4 MG PO QHS, (Reported) Vitamin D3/Folic Acid (Noxifol-D3 2,500 Unit-1 mg Tab), 5,000 UNIT PO QSA, (R eported) Scheduled PRN Acetaminophen (Tylenol), 650 MG PO PRN Q4HRS PRN for TEMP OVER 100.4F OR MILD PAIN Albuterol Sulfate (Proair Hfa), 2.5 MG NEB PRN Q4HRS PRN for SHORTNESS OF BREATH Docusate Sodium (Dok), 100 MG PO PRN BID PRN for CONSTIPATION Total Time: Total Time: Total time spent was 40 minutes in preparing scripts, discharge planning with SW and RN, and preparing this discharge summary. Justicifation of Admission Dx: Justifications for Admission: Justification of Admission Dx: Yes LUKE CHRISTIANSEN MD Feb 14, 2020 17:36
--- NOTE | 2020-02-14 18:42 | NUR ---
Pt escorted out with home O2 and education given tp and pt. IV discontinued, escorted out via wheelchair by Tatyana DIOP. EDIN
== END 2020-02-14 18:42 | disposition home health service (06) | DRG 291 ==
LOC: ER 12:04 → 6 SOUTH 14:20 → 5 NORTH 02-13 22:10
PROVIDERS: ADMIT Family Medicine; ATTEND Family Medicine
PROC: 5A1D70Z Performance of Urinary Filtration, Intermittent, Less than 6 Hours Per Day (ICD-10-PCS; 2020-02-13)
PROC: 5A1D70Z Performance of Urinary Filtration, Intermittent, Less than 6 Hours Per Day (ICD-10-PCS; principal; 2020-02-14)
DX: I13.2 Hypertensive heart and chronic kidney disease with heart failure and with stage 5 chronic kidney disease, or end stage renal disease (principal); I50.33 Acute on chronic diastolic (congestive) heart failure; N18.6 End stage renal disease; J96.01 Acute respiratory failure with hypoxia; E46 Unspecified protein-calorie malnutrition; D63.1 Anemia in chronic kidney disease; E11.22 Type 2 diabetes mellitus with diabetic chronic kidney disease; E78.00 Pure hypercholesterolemia, unspecified; K57.90 Diverticulosis of intestine, part unspecified, without perforation or abscess without bleeding; E78.5 Hyperlipidemia, unspecified; I25.10 Atherosclerotic heart disease of native coronary artery without angina pectoris; Z20.828 Contact with and (suspected) exposure to other viral communicable diseases; Z81.8 Family history of other mental and behavioral disorders; Z82.49 Family history of ischemic heart disease and other diseases of the circulatory system; Z95.5 Presence of coronary angioplasty implant and graft; Z99.2 Dependence on renal dialysis; E21.3 Hyperparathyroidism, unspecified; Z68.29 Body mass index [BMI] 29.0-29.9, adult
CPT/HCPCS: 36415; 71045; 80048; 80053; 82553; 82962; 83605; 83690; 83735; 83880; 84484; 85025; 87040; 93005; J1644; J1815; 99291-25; G0378; U0003-CS

== ENCOUNTER 2020-11-25 09:56 | Emergency (ER) | payer MEDICARE, BC ==
[~2020-11-25] VITALS: Ht 167.6 cm; Wt 95.4 kg
[~2020-11-25 09:56] MED LIST changes: +ALPR0.5T6 PO; +AMLO-186 PO; +AMLO-187 PO; -AMLO10TA8 PO; -AMLO5TAB10 PO; +CALC200T3 PO; -ISOS30TA4 PO; +ISOS30TA68 PO; -LISI-334 PO; +LISI20TA18 PO; -LISI40TA2 PO; +LISI40TA6 PO; +METH35.4 TP; +VITA25006 PO
--- NOTE | 2020-11-25 10:07 | PHYS DOC ---
Past Medical History Past Medical History: CAD, Diabetes-Type II, High Cholesterol, Hypertension, [place], Renal Failure Additional Past Medical Histor: R ankle fracture on August 2019 Past Surgical History: Cholecystectomy, Tonsillectomy Additional Past Surgical Histo: CARDIAC STENT, EYE SX, BONE SPUR L SHOULDER,perma cath Smoking Status: Former Smoker Alcohol Use: None Drug Use: None General Adult EDM: Chief Complaint: TREMORS HPI: HPI: 80-year-old male presenting the emergency department today after few spouses noticed the patient decided new tremor for the past few days. EMS is unsure which extremity has the tremor. The patient has no complaints here and does not have a tremor here in the emergency department on arrival. When asked how the patient feels the patient responds "great!". Spouse reports the patient's mood is more pleasant than normal which is different for him. Patient denies being in any pain. He was scheduled for dialysis today at 10:10 AM. He arrives at 10:00 AM. His dialysis clinic is right behind his house. Review of systems negative for chest pain shortness of breath vomiting diaphoresis fevers chills rashes. He denies any complaints. All other review of systems negative Review of Systems: Review of Systems: Constitutional: Denies fever or chills. [] Eyes: Denies change in visual acuity. [] HENT: Denies nasal congestion or sore throat. [] Respiratory: Denies cough or shortness of breath. [] Cardiovascular: Denies chest pain or edema. [] GI: Denies abdominal pain, nausea, vomiting, bloody stools or diarrhea. [] : Denies dysuria. [] Musculoskeletal: Denies back pain or joint pain. [] Integument: Denies rash. [] Neurologic: Denies headache, focal weakness or sensory changes. [] Endocrine: Denies polyuria or polydipsia. [] Lymphatic: Denies swollen glands. [] Psychiatric: Denies depression or anxiety. [] Heart Score: C/O Chest Pain: N/A Risk Factors: Risk Factors: DM, Current or recent (<one month) smoker, HTN, HLP, family history of CAD, obesity. Risk Scores: Score 0 - 3: 2.5% MACE over next 6 weeks - Discharge Home Score 4 - 6: 20.3% MACE over next 6 weeks - Admit for Clinical Observation Score 7 - 10: 72.7% MACE over next 6 weeks - Early Invasive Strategies Allergies: Allergies: Allergies Coded Allergies Type Severity Reaction Last Updated Verified No Known Medication Allergies Allergy Unknown 06/29/19 Yes Physical Exam: PE: Constitutional: Well developed, well nourished, no acute distress, non-toxic appearance. [] HENT: Normocephalic, atraumatic, bilateral external ears normal, oropharynx moist, no oral exudates, nose normal. [] Eyes: PERRLA, EOMI, conjunctiva normal, no discharge. [] Neck: Normal range of motion, no tenderness, supple, no stridor. [] Cardiovascular:Heart rate regular rhythm, no murmur [] Lungs & Thorax: Bilateral breath sounds clear to auscultation [] Abdomen: Bowel sounds normal, soft, no tenderness, no masses, no pulsatile masses. [] Skin: Warm, dry, no erythema, no rash. [] Back: No tenderness, no CVA tenderness. [] Extremities: No tenderness, no cyanosis, no clubbing, ROM intact, no edema. [] Neurologic: Alert and oriented X 3, normal motor function, normal sensory function, no focal deficits noted. [] Psychologic: Affect normal, judgement normal, mood normal. [] EKG: EKG: [] Radiology/Procedures: Radiology/Procedures: [] Course & Med Decision Making: Course & Med Decision Making Pertinent Labs and Imaging studies reviewed. (See chart for details) [] 80-year-old male presenting without any symptoms to the emergency department for a tremor that is now not present. Work-up here is unremarkable. EKG obtai keny and reviewed by myself shows left bundle branch block pattern present which is nonspecific not suggestive of acute ischemia. Will discharge to follow-up with PCP. He needs to go to dialysis clinic today for dialysis. Katheryn Disclaimer: Katheryn Disclaimer: This electronic medical record was generated, in whole or in part, using a voice recognition dictation system. Departure Departure Impression: Primary Impression: Encounter for medical screening examination Disposition: HOME / SELF CARE / HOMELESS Condition: STABLE Referrals: JONE BETTENCOURT MD (PCP) Patient Instructions: Tremor Additional Instructions: EMERGENCY DEPARTMENT GENERAL DISCHARGE INSTRUCTIONS Go to dialysis clinic today for dialysis. Follow-up with your primary physician in 1 to 2 days. Return to the emergency department if you have any new or concerning findings. Thank you for coming to [facility] Emergency Department (ED) today and trusting us with you care. We trust that you had a positive experience in our Emergency Department. If you wish to speak to the department management, you may call the Director at [phone]. Follow up is important in emergency/acute care visits. This condition should be evaluated by your primary care physician and any necessary consulting services for continued management within a few days (1-2) after discharge. Return to the emergency department if you have any new or concerning symptoms including but not limited to fever, chills, nausea, vomiting, intractable pain, any new rashes, chest pain, shortness of breath, uncontrolled bleeding, difficulty breathing, and/or vision loss. 1. Do you have a private Doctor? If you do not have a private doctor, please ask for a resource list of physicians or clinics that may be able to assist you with follow up care. 2. If a lab test or culture has been done and does not come back immediately, your results will be reviewed and you will be notified if you need a change in treatment. 3. Your care today has been supervised by a physician who is specially trained in emergency care. Many problems require more than one evaluation for a complete diagnosis and treatment. We recommend that you schedule your follow up appointment as recommended to ensure complete treatment of you illness or injury. If you are unable to obtain follow up care and continue to have a problem, or if your condition worsens, we recommend that you return to the ED. 4. We are not able to safely determine your condition over the phone nor are we able to give sound medical advice over the phone. For these safety reasons, if you call for medical advice we will ask you to come to the ED for further evaluation. IF YOUR SYMPTOMS WORSEN OR NEW SYMPTOMS DEVELOP, OR YOU HAVE CONCERNS ABOUT YOUR CONDITION; OR IF YOUR CONDITION WORSENS WHILE YOU ARE WAITING FOR YOUR FOLLOW UP APPOINTMENT; EITHER CONTACT YOUR PRIMARY CARE DOCTOR, THE PHYSICIAN WHOSE NAME AND NUMBER YOU WERE GIVEN, OR RETURN TO THE ED IMMEDIATELY. TARUN RUEDA MD Nov 25, 2020 10:07
--- NOTE | 2020-11-25 10:40 | RAD ---
EXAM: Chest, single view. HISTORY: Shortness of breath. COMPARISON: 05/01/2020 FINDINGS: A frontal view of the chest is obtained. There are small left and moderate right pleural ef fusions. There is fluid tracking within the pleural fissures. There is diffuse interstitial infiltrat e superimposed on chronic interstitial changes. There is stable cardiomegaly.. IMPRESSION: 1. Small right and moderate left pleural effusions and diffuse interstitial infiltrate. 2. Stable prominent cardiac silhouette. Electronically signed by: Mone Koch MD (11/25/2020 10:38 AM) [id number]
[2020-11-25 10:42] LABS: BASO % 0 % (0-3); EOS % 0 % (0-3); HEMATOCRIT 30.8 % (39.0-53.0); HEMOGLOBIN 9.7 g/dL (13.0-17.5); LYMPH # 0.5 x10^3/uL (1.0-4.8); LYMPH % 7 % (24-48); MEAN CORPUSCULAR HEMOGLOBIN 31 pg (25-35); MEAN CORPUSCULAR HGB CONC 32 g/dL (31-37); MEAN CORPUSCULAR VOLUME 98 fL (79-100); MONO # 0.7 x10^3/uL (0.0-1.1); MONO % 10 % (0-9); NEUT % 82 % (31-73); PLATELET COUNT 294 x10^3/uL (140-400); RED BLOOD COUNT 3.13 x10^6/uL (4.30-5.70); RED CELL DISTRIBUTION WIDTH 15.4 % (11.5-14.5); WHITE BLOOD COUNT 7.3 x10^3/uL (4.0-11.0)
[2020-11-25 10:43] LABS: CALCIUM 8.1 mg/dL (8.5-10.1); GFR 11.2; POTASSIUM 4.5 mmol/L (3.5-5.1)
[2020-11-25 10:48] LABS: ALBUMIN 2.5 g/dL (3.4-5.0); DIRECT BILIRUBIN 0.4 mg/dL (0.0-0.2); TOTAL BILIRUBIN 0.6 mg/dL (0.2-1.0)
[2020-11-25 11:45] VITALS: BP 152/66
--- NOTE | 2020-11-25 12:55 | EKG ---
[facility] [address] [place] [address] Test Date: 2020-11-25 Test Time: 10:19:20 Pat Name: LEANA DODD Department: Room: Gender: M [employer] Supervisor: : 1940 Requested By: TARUN RUEDA Order Number: [id number] Reading MD: Measurements Intervals [place] Rate: 66 P: 40 VT: 168 QRS: 47 QRSD: 148 T: 163 QT: 432 QTc: 455 Interpretive Statements SINUS RHYTHM LEFT BUNDLE BRANCH BLOCK ABNORMAL ECG RI6.02 No previous ECG available for comparison
== END 2020-11-25 12:20 | disposition home or self-care (01) ==
LOC: ER 09:56
DX: R25.1 Tremor, unspecified (principal); E78.00 Pure hypercholesterolemia, unspecified; E11.22 Type 2 diabetes mellitus with diabetic chronic kidney disease; I12.9 Hypertensive chronic kidney disease with stage 1 through stage 4 chronic kidney disease, or unspecified chronic kidney disease; N18.9 Chronic kidney disease, unspecified; I25.10 Atherosclerotic heart disease of native coronary artery without angina pectoris; I25.2 Old myocardial infarction; Z87.891 Personal history of nicotine dependence; Z95.5 Presence of coronary angioplasty implant and graft
CPT/HCPCS: 36415; 71045; 80048; 80076; 83690; 84484; 85025; 93005; 99285-25